=== PATIENT | male | born 1960 ===

== ENCOUNTER 2016-08-19 07:27 | Inpatient (IN) | payer MEDICAID, OTHER ==
[2016-08-19 07:34] VITALS: O2SAT 97
[2016-08-19 07:35] VITALS: BMI 29.1
--- NOTE | 2016-08-19 07:51 | ED PDOC ---
HPI: Psych/Substance Abuse Time Seen by Provider: 08/19/16 07:38 Chief Complaint (Nursing): Psychiatric Evaluation Chief Complaint (Provider): Psychiatric Evaluation History Per: Patient History/Exam Limitations: no limitations Onset/Duration Of Symptoms: Days Current Symptoms Are (Timing): Still Present Suicide/Self Injury Attempted (Context): None Modifying Factor(s): Alcohol Severity: Mild Involuntary Hold By: None Additional Complaint(s): Patient is a 56 year old male who presents to ED for psychiatric evaluation. Patient reports hearing voices since stopping his medication, also admits to drinking alcohol. Denies SI or HI. Past Medical History Reviewed: Historical Data, Nursing Documentation, Vital Signs Vital Signs: Last Vital Signs Temp 97.6 F 08/19/16 07:33 Pulse 93 H 08/19/16 07:33 Resp BP 132/74 08/19/16 07:33 Pulse Ox 97 08/19/16 07:33 - Medical History PMH: Anemia, Anxiety, Asthma, Bipolar Disorder, COPD, Depression, Gastritis ( secondary to ETOH), HTN, Hypercholesterolemia, Pancreatitis (secondary to ETOH) , Schizophrenia Denies: Alzheimer's Disease, Atrial Fibrillation, Bronchitis, Cardia Arrhythmia, CHF, Dementia, Diabetes, Emphysema, Hepatitis, HIV, Migraine, Mitral Valve Prolapse, Multiple Sclerosis, Parkinson's Disease, Peripheral Edema , Pneumonia, Pulmonary Embolism, Chronic Kidney Disease, Sexually Transmitted Disease, Sleep Apnea Comment Only: Seizures (related to ETOH withdrawal) - Surgical History Surgical History: No Surg Hx Denies: Pacemaker - Family History Family History: States: Unknown Family Hx - Social History Alcohol: > 2 Drinks/Day - Immunization History Hx Tetanus Toxoid Vaccination: Yes (As per patient, TDaP uptodate ( about 3 years ago)) Hx Influenza Vaccination: No Hx Pneumococcal Vaccination: No - Allergies Allergies/Adverse Reactions: Allergies Allergy/AdvReac Type Severity Reaction Status Date / Time No Known Allergies Allergy Verified 08/19/16 07:36 Review of Systems ROS Statement: Except As Marked, All Systems Reviewed And Found Negative Constitutional: Negative for: Weakness Eyes: Negative for: Vision Change Cardiovascular: Negative for: Chest Pain Respiratory: Negative for: Shortness of Breath Gastrointestinal: Negative for: Vomiting Neurological: Negative for: Weakness Psych: Negative for: Suicidal ideation Physical Exam - Reviewed Nursing Documentation Reviewed: Yes Vital Signs Reviewed: Yes - Physical Exam Appears: Positive for: Non-toxic ((+) AOB), No Acute Distress Skin: Positive for: Normal Color, Warm Eye Exam: Positive for: Normal appearance Neck: Positive for: Normal, Painless ROM Cardiovascular/Chest: Positive for: Regular Rate, Rhythm. Negative for: Murmur Respiratory: Positive for: Normal Breath Sounds. Negative for: Respiratory Distress Extremity: Positive for: Normal ROM Neurologic/Psych: Positive for: Alert, Oriented (with mild slurred speech) - Laboratory Results Result Diagrams: 08/19/16 09:30 08/19/16 09:30 - ECG O2 Sat by Pulse Oximetry: 97 (RA) Pulse Ox Interpretation: Normal Medical Decision Making Medical Decision Making: Time: 744 Initial impression: Psychiatric evaluation Initial plan: -- Alcohol serum -- Crisis evaluation labs reviewed, mild etoh intox. crisis eval performed on acceptable clinical sobriety and admit to 3 Was medically stable for psychiatric admission at time of eval. Scribe Attestation: Documented by Yecenia Kaplan acting as a scribe for Mitch Rivas DO MD Scribe Attestation: All medical record entries made by the Scribe were at my direction and personally dictated by me. I have reviewed the chart and agree that the record accurately reflects my personal performance of the history, physical exam, medical decision making, and the department course for this patient. I have also personally directed, reviewed, and agree with the discharge instructions and disposition. Disposition - Clinical Impression Clinical Impression: Alcohol intoxication, Bipolar 1 disorder, depressed - Patient ED Disposition Is Patient to be Admitted: Yes Counseled Patient/Family Regarding: Studies Performed, Diagnosis - Disposition Disposition Time: 10:00 Condition: STABLE - Pt Status Changed To: Hospital Disposition Of: Inpatient - Admit Certification Admit to Inpatient:: After my assessment, the patient will require hospitalization for at least two midnights. This is because of the severity of symptoms shown, intensity of services needed, and/or the medical risk in this patient being treated as an outpatient. - POA Present On Arrival: None
[2016-08-19 09:45] LABS: BASO # 0.1 K/uL (0.0-0.2); BASO % 1.7 % (0.0-2.0); EOS # 0.2 K/uL (0.0-0.7); EOS % 2.9 % (0.0-4.0); HEMATOCRIT 45.7 % (35.0-51.0); LYMPH # 2.4 K/uL (1.0-4.3); LYMPH % 44.4 % (20.0-40.0); MEAN CELL VOLUME 92.1 fl (80.0-94.0); MEAN CORPUSCULAR HEMOGLOBIN 30.8 pg (27.0-31.0); MEAN CORPUSCULAR HGB CONC 33.4 g/dL (33.0-37.0); MEAN PLATELET VOLUME 7.1 fl (7.2-11.7); MONO # 0.4 K/uL (0.0-0.8); MONO % 6.8 % (0.0-10.0); NEUT # 2.4 K/uL (1.8-7.0); NEUT % 44.2 % (50.0-75.0); NRBC % 0.6 % (0.0-0.0); RED CELL DISTRIBUTION WIDTH 16.1 % (11.5-14.5); WHITE BLOOD COUNT 5.4 K/uL (4.8-10.8)
[2016-08-19 09:49] LABS: ALCOHOL SERUM 188 mg/dl (0-10); BLOOD UREA NITROGEN 8 mg/dl (9-20); CALCIUM 8.8 mg/dL (8.4-10.2); CARBON DIOXIDE 21 mmol/L (22-30); CHLORIDE 106 mmol/L (98-107); GFR AFRICAN-AMERICAN > 60; GLUCOSE,RANDOM 106 mg/dL (75-110); POTASSIUM 3.8 MMOL/L (3.6-5.0); SODIUM 142 mmol/l (132-148)
--- NOTE | 2016-08-19 13:54 | RAD ---
HISTORY: ro infiltrate COMPARISON: 07/02/2016 FINDINGS: LUNGS: No active pulmonary disease. PLEURA: No significant pleural effusion identified, no pneumothorax apparent. CARDIOVASCULAR: Normal. OSSEOUS STRUCTURES: No significant abnormalities. VISUALIZED UPPER ABDOMEN: Normal. OTHER FINDINGS: None. IMPRESSION: No active disease.
[2016-08-19] MEDS ORDERED: DiphenhydrAMINE 50 mg/ml Inj IM PRN (14:37)
[2016-08-19] MEDS ORDERED: Magnesium Hydroxide Susp 30 ml UD PO PRN (14:37)
[2016-08-19] MEDS ORDERED: Alum-Mag Hydrox-Simethicone Susp (30 mL) PO PRN (14:37)
--- NOTE | 2016-08-19 14:56 | PCM.PSYCH ---
Initial Psychiatric Evaluation - Initial Psychiatric Evaluation Type of Admission: Voluntary Legal Status: Capacity Chief Complaint (in patient's own words): i feel like @$%# Patient's Reaction to Hospitalization: cooperative History of Present Illness and Precipitating Events: pt is well known to the treatment team. he is an alcoholic who lives at the [facility]. he has medical complications from his alcohol use- chronic diarrhea, pancreatitis as well as copd from his smoking. he has started to have mental health issues after the of his which include depression and auditory hallucinations. he does not sustain sobriety. has been drinking up to 4 pints of vodka daily. he is tremulous now. he reports he has been seeing mary francis in the clinic for meds, since he is not allowed at [facility] [employer] regular outpt clinic because of his non-adherence. pt is reporting that he is now having suicidal thoughts and having auditory hallucinations of his 's voice. he has not taken meds for several days. he is feeling safe in the hospital. he denies wanting to harm himself currently. Current Medications: Active Medications Generic Name Dose Route Start Last Admin Trade Name Freq PRN Reason Stop Dose Admin Acetaminophen 650 mg 08/19/16 14:37 Tylenol 325mg Tab PO Q4 PRN Pain, Mild (1-3) Al Hydrox/Mg Hydrox/Simethicone 30 ml 08/19/16 14:37 Maalox Plus 30 Ml PO Q4 PRN Dyspepsia Diphenhydramine HCl 50 mg 08/19/16 14:37 Benadryl PO Q6 PRN Extrapyramidal Symptoms Diphenhydramine HCl 50 mg 08/19/16 14:37 Benadryl IM Q6 PRN Extrapyramidal S/S Unable PO Folic Acid 1 mg 08/20/16 09:00 Folic Acid PO DAILY CHARLINE Gabapentin 400 mg 08/19/16 22:00 Neurontin PO HS CHARLINE Haloperidol 5 mg 08/19/16 14:37 Haldol PO Q4 PRN Agitation Haloperidol Lactate 5 mg 08/19/16 14:37 Haldol IM Q4 PRN Agitation, Unable to Take PO Lorazepam 1 mg 08/19/16 17:00 Ativan PO BIDHS CHARLINE Lorazepam 2 mg 08/19/16 14:37 Ativan PO Q4 PRN Anxiety/Agitation Lorazepam 2 mg 08/19/16 14:37 Ativan IM Q4 PRN Anxiety/Agitation,Unable PO Magnesium Hydroxide 30 ml 08/19/16 14:37 Milk Of Magnesia PO HS PRN Constipation Quetiapine Fumarate 50 mg 08/19/16 22:00 Seroquel PO HS CHARLINE Sertraline HCl 100 mg 08/20/16 09:00 Zoloft PO DAILY CHARLINE Thiamine HCl 100 mg 08/20/16 09:00 Vitamin B1 Tab PO DAILY CHARLINE Tramadol HCl 100 mg 08/19/16 14:37 Ultram PO Q6 PRN Pain, severe (8-10) Tramadol HCl 50 mg 08/19/16 14:37 Ultram PO Q6 PRN Pain, moderate (4-7) Past Psychiatric History - Past Psychiatric History Previous Treatment History: Inpatient Prior Professional Help: as per hpi History of Abuse: denies History of ETOH/Drug Use: smokes 1 pack a day of cigarettes, chronic heavy alcohol use. does not accept rehab referrals. History of Family Illness: denies Pertinent Medical Hx (Current Medical&Sleep Prob, Allergies): Allergies Allergy/AdvReac Type Severity Reaction Status Date / Time No Known Allergies Allergy Verified 08/19/16 07:36 Review of Systems - Psychiatric Psychiatric: As Per HPI Mental Status Examination - Personal Presentation Personal Presentation: Looks stated age - Affect Affect: Constricted, Depressed - Motor Activity Motor Activity: Calm - Reliability in Providing Information Reliability in Providing Information: Good - Speech Speech: Organized - Mood Mood: Depressed - Formal Thought Process Formal Thought Process: Hallucinations (hears 's voice at night) - Hallucinations/Delusions Hallucinations: Auditory - Obsessions/Compulsions Obsessions: No Compulsions: No - Cognitive Functions Orientation: Person, Place, Situation, Time Sensorium: Alert Attention/Concentration: Attentive Abstract Thinking: [place] Estimate of Intelligence: Average Judgement: Intact, as evidence by: Insight regarding need for hospitalization Memory: Recent intact, as evidence by: Ability to recall events of the day, Remote intact, as evidenced by: Abilit to recall sig. life events - Risk Risk: Suicidal (denies plan or intent now), Seizure, Withdrawal, Diminished functioning - Strength & Assets Inventory Strength & Assets Inventory: Employment history, Life experience - Limitations Limitations: Other (cannot read, does not follow up consitently. medical problems ) DSM 5 DX - DSM 5 DSM 5 Diagnosis: alcohol dependence in withdrawal with medical complications major depression recurrent severe with psychosis - Recommended/Plan of Treatment Treatment Recommendations and Plan of Treatment: admit to [facility] for safety and observation gather collateral information provide supportive therapy adjust medications- restart previous meds. ativan for etoh withdrawal. family medicine consult to manage medical issues disposition planning- refer to inpt rehab. Projected ELOS: 7-10 days Prognosis: guarded Discharge Plan and Discharge Criteria: strongly encourage inpt rehab - Smoking Cessation Smoking Cessation Initiated: Yes
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
[2016-08-19 15:23] LABS: CHOLESTEROL 288 mg/dL (0-199)
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
[2016-08-19] MEDS ORDERED: Albuterol HFA 90 mcg/actuation (8 g) INH PRN (15:52)
--- NOTE | 2016-08-20 11:32 | PCM.PYCHPN ---
Psychiatric Progress Note - Psychiatric Progress Note Patient seen today, length of contact: discussed with team Patient Chief Complaint: i feel ok today Problems Identified/Issues Discussed: states the voices are reduced. he reports feeling less tremulous today. his sleep was improved. he is denying any diarrhea. feels more hopeful. Medication Change: No Medical Record Reviewed: Yes Mental Status Examination - Cognitive Function Orientation: Person, Place, Situation, Time Memory: Intact Attention: WNL Concentration: WNL Association: WNL Fund of Knowledge: [facility] Decription of patient's judgement and insights: fair - Mood Mood: Depressed - Affect Affect: Constricted, Depressed - Formal Thought Process Formal Thought Process: No Impairment Psychotic Thoughts and Behaviors: denies a/v hallucinations - Suicidal Ideation Suicidal Ideation: No - Homicidal Ideation Homicidal Ideation: No Goal/Treatment Plan - Goal/Treatment Plan Need for Continued Stay: Remain at risks for inpatient hospitalization, Severe functional impairment Progress Toward Problem(s) and Goals/Treatment Plan: alcohol dependence major depression recurrent with psychosis continue current treatment start to taper ativan tomorrow disposition planning- try to encourage pt to go to inpt rehab Estimated Date of D/C: 08/24/16
--- NOTE | 2016-08-21 12:02 | PCM.PYCHPN ---
Psychiatric Progress Note - Psychiatric Progress Note Patient seen today, length of contact: discussed with team Patient Chief Complaint: i feel pretty good Problems Identified/Issues Discussed: states he is not hearing voices. less tremulous. pt is still feeling depressed. no c/o medication side effects. Medication Change: No Medical Record Reviewed: Yes Mental Status Examination - Cognitive Function Orientation: Person, Place, Situation, Time Memory: Intact Attention: WNL Concentration: WNL Association: WNL Fund of Knowledge: [facility] Decription of patient's judgement and insights: fair - Mood Mood: Depressed - Affect Affect: Constricted, Depressed - Formal Thought Process Formal Thought Process: No Impairment - Suicidal Ideation Suicidal Ideation: No - Homicidal Ideation Homicidal Ideation: No Goal/Treatment Plan - Goal/Treatment Plan Need for Continued Stay: Remain at risks for inpatient hospitalization, Severe functional impairment Progress Toward Problem(s) and Goals/Treatment Plan: alcohol dependence major depression recurrent with psychosis continue current treatment start to taper ativan monday disposition planning- try to encourage pt to go to inpt rehab Estimated Date of D/C: 08/24/16
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
--- NOTE | 2016-08-22 10:17 | CARD ---
APPROVED REPORT EKG Measurement Heart [id number] CT [id number] <Conclusion> Normal sinus rhythm Normal ECG
--- NOTE | 2016-08-22 11:43 | PCM.PYCHPN ---
Psychiatric Progress Note - Psychiatric Progress Note Patient seen today, length of contact: in treatment team Patient Chief Complaint: i'm doing okay Problems Identified/Issues Discussed: states he does not want to go to rehab, mood is improved. pt states he is doing better despite his frequent hospitalizations. Medication Change: No Medical Record Reviewed: Yes Mental Status Examination - Cognitive Function Orientation: Person, Place, Situation, Time Memory: Intact Attention: WNL Concentration: WNL Association: WNL Fund of Knowledge: [facility] Decription of patient's judgement and insights: superficial - Mood Mood: Depressed - Affect Affect: Constricted, Depressed - Speech Speech: Appropriate - Formal Thought Process Formal Thought Process: No Impairment - Suicidal Ideation Suicidal Ideation: No - Homicidal Ideation Homicidal Ideation: No Goal/Treatment Plan - Goal/Treatment Plan Need for Continued Stay: Remain at risks for inpatient hospitalization, Severe functional impairment Progress Toward Problem(s) and Goals/Treatment Plan: alcohol dependence major depression recurrent with psychosis continue current treatment have started to taper ativan disposition planning- will continue to encourage pt to go to inpt rehab Estimated Date of D/C: 08/24/16 - Smoking Cessation Smoking Cessation Initiated: Yes
--- NOTE | 2016-08-23 10:15 | PCM.PYCHPN ---
Psychiatric Progress Note - Psychiatric Progress Note Patient seen today, length of contact: discussed with team Patient Chief Complaint: my back hurts Problems Identified/Issues Discussed: pt concerned with his back pain- he states the pain is right over his lower spine. he has trouble tolerating groups because of the pain and struggles to walk around the unit because of discomfort. he is still tremulous. he does not want inpt substance use treatment. he denies any a/v hallucinations. Medication Change: No Medical Record Reviewed: Yes Mental Status Examination - Cognitive Function Orientation: Person, Place, Situation, Time Memory: Intact Attention: WNL Concentration: WNL Association: [facility] Fund of Knowledge: [facility] Decription of patient's judgement and insights: fair - Mood Mood: Depressed - Affect Affect: Constricted, Depressed - Speech Speech: Appropriate - Formal Thought Process Formal Thought Process: No Impairment Psychotic Thoughts and Behaviors: denies a/v hallucinations - Suicidal Ideation Suicidal Ideation: No - Homicidal Ideation Homicidal Ideation: No Goal/Treatment Plan - Goal/Treatment Plan Need for Continued Stay: Remain at risks for inpatient hospitalization, Severe functional impairment Progress Toward Problem(s) and Goals/Treatment Plan: alcohol dependence major depression recurrent with psychosis continue current treatment have started to taper ativan- will hold at 1mg bid today rn to [facility] medicine regarding pt's back pain- t/c mri? disposition planning- will continue to encourage pt to go to inpt rehab Estimated Date of D/C: 08/24/16
--- NOTE | 2016-08-23 11:28 | CP.PCM.PN ---
Subjective - Date & Time of Evaluation Date of Evaluation: 08/23/16 Time of Evaluation: 11:26 - Subjective Subjective: Patient evaluated with complaints of lower back pain. Para-spinal lumbar region on the left side. No trauma, urinary habits changes, numbness/ tingling or weakness. Objective - Vital Signs/Intake and Output Vital Signs (last 24 hours): Temp Pulse Resp BP Pulse Ox 97.5 F L 110 H 20 141/84 97 08/22/16 10:00 08/22/16 10:00 08/21/16 16:57 08/22/16 10:00 08/19/16 14:09 - Medications Medications: Current Medications Acetaminophen (Tylenol 325mg Tab) 650 mg PO Q4 PRN PRN Reason: Pain, Mild (1-3) Al Hydrox/Mg Hydrox/Simethicone (Maalox Plus 30 Ml) 30 ml PO Q4 PRN PRN Reason: Dyspepsia Albuterol (Ventolin Hfa 90 Mcg/Actuation (8 G)) 1 puff INH RQ6 PRN PRN Reason: Shortness of Breath Last Admin: 08/21/16 07:03 Dose: 1 inhaler Amlodipine Besylate (Norvasc) 5 mg PO DAILY [facility] Last Admin: 08/22/16 09:25 Dose: 5 mg Diphenhydramine HCl (Benadryl) 50 mg PO Q6 PRN PRN Reason: Extrapyramidal Symptoms Diphenhydramine HCl (Benadryl) 50 mg IM Q6 PRN PRN Reason: Extrapyramidal S/S Unable PO Folic Acid (Folic Acid) 1 mg PO DAILY [facility] Last Admin: 08/23/16 08:38 Dose: 1 mg Gabapentin (Neurontin) 400 mg PO HS [facility] Last Admin: 08/22/16 21:16 Dose: 400 mg Haloperidol (Haldol) 5 mg PO Q4 PRN PRN Reason: Agitation Haloperidol Lactate (Haldol) 5 mg IM Q4 PRN PRN Reason: Agitation, Unable to Take PO Lorazepam (Ativan) 2 mg PO Q4 PRN PRN Reason: Anxiety/Agitation Last Admin: 08/22/16 11:58 Dose: 2 mg Lorazepam (Ativan) 2 mg IM Q4 PRN PRN Reason: Anxiety/Agitation,Unable PO Lorazepam (Ativan) 1 mg PO BID [facility] Last Admin: 08/23/16 08:38 Dose: 1 mg Magnesium Hydroxide (Milk Of Magnesia) 30 ml PO HS PRN PRN Reason: Constipation Nicotine (Nicoderm Cq) 1 patch TD DAILY [facility] Last Admin: 08/23/16 08:39 Dose: 1 patch Quetiapine Fumarate (Seroquel) 50 mg PO HS [facility] Last Admin: 08/22/16 21:16 Dose: 50 mg Sertraline HCl (Zoloft) 100 mg PO DAILY [facility] Last Admin: 08/23/16 08:38 Dose: 100 mg Thiamine HCl (Vitamin B1 Tab) 100 mg PO DAILY [facility] Last Admin: 08/23/16 08:38 Dose: 100 mg Tramadol HCl (Ultram) 100 mg PO Q6 PRN PRN Reason: Pain, severe (8-10) Last Admin: 08/22/16 20:48 Dose: 100 mg Tramadol HCl (Ultram) 50 mg PO Q6 PRN PRN Reason: Pain, moderate (4-7) Last Admin: 08/22/16 06:36 Dose: 50 mg - Head Exam Head Exam: ATRAUMATIC, NORMOCEPHALIC - Cardiovascular Exam Cardiovascular Exam: +S1, +S2 - GI/Abdominal Exam GI & Abdominal Exam: Soft. absent: Distended, Tenderness - Extremities Exam Extremities Exam: Full ROM Additional comments: 5/5 MSK strength, +2DTRs, Motorsensorium full - Back Exam Additional comments: ROM full- extension and flexion Mild paraspinal lumbarsacral tenderness with spasm - Neurological Exam Neurological Exam: Alert Assessment and Plan - Assessment and Plan (Free Text) Plan: 1. Lower Back Pain Likely lumbago from paraspinal MSK spasm - Tramadol continued: Dosing may be decreased to 50mg PO [id number] - Avoid Bed rest - PO hydration encouraged - Strengthening and stretching exercises reviewed - Could benefit from PT
--- NOTE | 2016-08-24 09:56 | PCM.PYCHPN ---
Psychiatric Progress Note - Psychiatric Progress Note Patient seen today, length of contact: discussed with team Patient Chief Complaint: i am in pain Problems Identified/Issues Discussed: pt continues to complain of back pain 8-9 out of 10- located over lower spine and occasional under left lower ribs. pain prevents him from sleeping. he feels less tremulous. he denies a/v hallucinations. Medical Problems: back pain Medication Change: No Medical Record Reviewed: Yes Mental Status Examination - Cognitive Function Orientation: Person, Place, Situation, Time Memory: Intact Attention: WNL Concentration: WNL Association: [facility] Fund of Knowledge: [facility] Decription of patient's judgement and insights: fair - Mood Mood: Depressed - Affect Affect: Constricted, Depressed - Speech Speech: Appropriate - Formal Thought Process Formal Thought Process: No Impairment Psychotic Thoughts and Behaviors: denies a/v hallucinations - Suicidal Ideation Suicidal Ideation: No - Homicidal Ideation Homicidal Ideation: No Goal/Treatment Plan - Goal/Treatment Plan Need for Continued Stay: Remain at risks for inpatient hospitalization, Severe functional impairment Progress Toward Problem(s) and Goals/Treatment Plan: alcohol dependence major depression recurrent with psychosis continue current treatment lower ativan today will consult pt at recommendation of pt will consult pain management Estimated Date of D/C: 08/24/16 - Smoking Cessation Smoking Cessation Initiated: Yes
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
[2016-08-24] MEDS: Lidocaine 5% Patch TD SCH (16:42)
[2016-08-25] MEDS: Lidocaine 5% Patch TD SCH (09:44)
--- NOTE | 2016-08-25 09:49 | PCM.PYCHPN ---
Psychiatric Progress Note - Psychiatric Progress Note Patient seen today, length of contact: discussed with team Patient Chief Complaint: i feel a little better Problems Identified/Issues Discussed: pt with some relief of back pain. went to mri today and results pending. no withdrawal symptoms. psychotic symptoms improved. pt makes efforts to attend groups. Medical Problems: back pain Diagnostic Results: mri results pending Medication Change: No Medical Record Reviewed: Yes Consults ordered or reviewed: appreciate pain management consult. pt has been consulted Mental Status Examination - Cognitive Function Orientation: Person, Place, Situation, Time Memory: Intact Attention: WNL Concentration: WNL Association: WNL Fund of Knowledge: [facility] Decription of patient's judgement and insights: fair - Mood Mood: Depressed - Affect Affect: Constricted, Depressed - Speech Speech: Appropriate - Formal Thought Process Formal Thought Process: No Impairment - Suicidal Ideation Suicidal Ideation: No - Homicidal Ideation Homicidal Ideation: No Goal/Treatment Plan - Goal/Treatment Plan Need for Continued Stay: Remain at risks for inpatient hospitalization, Severe functional impairment Progress Toward Problem(s) and Goals/Treatment Plan: alcohol dependence major depression recurrent with psychosis [facility] appreciate help of pt and pain management mri results pending Estimated Date of D/C: 08/24/16
--- NOTE | 2016-08-25 13:29 | MRI ---
PROCEDURE: MR LUMBAR SPINE WITHOUT CONTRAST HISTORY: back pain COMPARISON: Plain radiographs from 03/28/2016 TECHNIQUE: Multiecho multiplanar sequences were performed through the lumbar spine without the use of intravenous contrast. FINDINGS: There is normal alignment of the lumbar vertebral bodies. Lumbar lordosis is maintained. Vertebral bodies are normal in height. There is no acute fracture, spondylolysis or spondylolisthesis. There are degenerative endplate marrow changes at L5-S1 and to a lesser extent at L4-5, otherwise bone marrow signal is within normal limits. T12-L1: No disc herniation, spinal canal stenosis or neural foraminal narrowing. L1-2: No disc herniation, spinal canal stenosis or neural foraminal narrowing. L2-3: No disc herniation, spinal canal stenosis or neural foraminal narrowing. L3-4: Mild posterior disc bulge, mild ligamentum flavum infolding and mild bilateral facet arthropathy without neural foraminal or spinal canal stenosis. L4-5: Posterior disc bulge and mild bilateral facet arthropathy without neural foraminal or spinal canal stenosis. L5-S1: Diffuse posterior disc bulge, mild ligamentum flavum infolding and mild bilateral facet arthropathy with resultant moderate bilateral neural foraminal stenosis. No spinal canal stenosis. OTHER FINDINGS: None. IMPRESSION: 1. No acute fracture, spondylolysis or spondylolisthesis. 2. Mild degenerative disc disease in the lower lumbar spine, worse at L5-S1 with a diffuse disc bulge and moderate bilateral neural foraminal stenosis. No spinal canal stenosis.
[2016-08-26] MEDS: Lidocaine 5% Patch TD SCH (09:57)
--- NOTE | 2016-08-26 12:49 | PCM.PYCHPN ---
Psychiatric Progress Note - Psychiatric Progress Note Patient seen today, length of contact: discussed with team Patient Chief Complaint: i am depressed Problems Identified/Issues Discussed: pt's mri fairly unremarkable. worked with PT today. he is c/o feeling depressed. still with back/side pain. denies medication side effects, Medical Problems: back pain Diagnostic Results: mri results reviewed Medication Change: Yes (increase zoloft) Medical Record Reviewed: Yes Mental Status Examination - Cognitive Function Orientation: Person, Place, Situation, Time Memory: Intact Attention: WNL Concentration: WNL Association: WNL Fund of Knowledge: [facility] Decription of patient's judgement and insights: fair - Mood Mood: Depressed - Affect Affect: Constricted, Depressed - Speech Speech: Appropriate - Formal Thought Process Formal Thought Process: No Impairment - Suicidal Ideation Suicidal Ideation: No - Homicidal Ideation Homicidal Ideation: No Goal/Treatment Plan - Goal/Treatment Plan Need for Continued Stay: Remain at risks for inpatient hospitalization, Severe functional impairment Progress Toward Problem(s) and Goals/Treatment Plan: alcohol dependence major depression recurrent with psychosis continue current treatment with increase in zoloft ativan has been discontinued, continue prn for weekend appreciate help of pt and pain management Estimated Date of D/C: 08/29/16 - Smoking Cessation Smoking Cessation Initiated: Yes
--- NOTE | 2016-08-26 16:38 | CP.PCM.PN ---
Subjective - Date & Time of Evaluation Date of Evaluation: 08/26/16 Time of Evaluation: 08:00 - Subjective Subjective: Pt was resting in bed. States he is feeling well. Denies any auditory or visual hallucinations. Patients back pain is still there but pain is controled with medication. Denies any weakness in lower extremity or difficulty with bowl and bladder. Objective - Vital Signs/Intake and Output Vital Signs (last 24 hours): Temp Pulse Resp BP Pulse Ox 96.8 F L 87 18 125/76 97 08/26/16 09:00 08/26/16 10:01 08/26/16 09:00 08/26/16 10:01 08/23/16 16:49 - Medications Medications: Current Medications Acetaminophen (Tylenol 325mg Tab) 650 mg PO Q4 PRN PRN Reason: Pain, Mild (1-3) Al Hydrox/Mg Hydrox/Simethicone (Maalox Plus 30 Ml) 30 ml PO Q4 PRN PRN Reason: Dyspepsia Albuterol (Ventolin Hfa 90 Mcg/Actuation (8 G)) 1 puff INH RQ6 PRN PRN Reason: Shortness of Breath Last Admin: 08/21/16 07:03 Dose: 1 inhaler Amlodipine Besylate (Norvasc) 5 mg PO DAILY [facility] Last Admin: 08/26/16 10:01 Dose: 5 mg Diphenhydramine HCl (Benadryl) 50 mg PO Q6 PRN PRN Reason: Extrapyramidal Symptoms Last Admin: 08/26/16 16:05 Dose: 50 mg Diphenhydramine HCl (Benadryl) 50 mg IM Q6 PRN PRN Reason: Extrapyramidal S/S Unable PO Folic Acid (Folic Acid) 1 mg PO DAILY [facility] Last Admin: 08/26/16 09:57 Dose: 1 mg Gabapentin (Neurontin) 400 mg PO HS [facility] Last Admin: 08/25/16 21:39 Dose: 400 mg Haloperidol (Haldol) 5 mg PO Q4 PRN PRN Reason: Agitation Haloperidol Lactate (Haldol) 5 mg IM Q4 PRN PRN Reason: Agitation, Unable to Take PO Lidocaine (Lidoderm) 1 ea TD DAILY [facility] Last Admin: 08/26/16 09:57 Dose: 1 ea Lorazepam (Ativan) 2 mg PO Q4 PRN PRN Reason: Anxiety/Agitation Last Admin: 08/22/16 11:58 Dose: 2 mg Lorazepam (Ativan) 2 mg IM Q4 PRN PRN Reason: Anxiety/Agitation,Unable PO Magnesium Hydroxide (Milk Of Magnesia) 30 ml PO HS PRN PRN Reason: Constipation Nicotine (Nicoderm Cq) 1 patch TD DAILY [facility] Last Admin: 08/26/16 10:01 Dose: 1 patch Pregabalin (Lyrica) 50 mg PO BID [facility] Last Admin: 08/26/16 16:05 Dose: 50 mg Quetiapine Fumarate (Seroquel) 50 mg PO HS [facility] Last Admin: 08/25/16 21:39 Dose: 50 mg Sertraline HCl (Zoloft) 100 mg PO DAILY [facility] Last Admin: 08/26/16 10:02 Dose: 100 mg Sertraline HCl (Zoloft) 25 mg PO DAILY [facility] Thiamine HCl (Vitamin B1 Tab) 100 mg PO DAILY [facility] Last Admin: 08/26/16 10:02 Dose: 100 mg Tramadol HCl (Ultram) 100 mg PO Q6 PRN PRN Reason: Pain, severe (8-10) Last Admin: 08/26/16 16:07 Dose: 100 mg Tramadol HCl (Ultram) 50 mg PO Q6 PRN PRN Reason: Pain, moderate (4-7) Last Admin: 08/24/16 21:18 Dose: 50 mg - Constitutional Appears: No Acute Distress - Head Exam Head Exam: ATRAUMATIC, NORMAL INSPECTION, NORMOCEPHALIC - Eye Exam Eye Exam: Normal appearance - Respiratory Exam Respiratory Exam: Clear to Ausculation Bilateral, NORMAL BREATHING PATTERN. absent: Rales, Wheezes - Cardiovascular Exam Cardiovascular Exam: REGULAR RHYTHM, +S1, +S2 - GI/Abdominal Exam GI & Abdominal Exam: Soft, Normal Bowel Sounds. absent: Tenderness - Neurological Exam Neurological Exam: Alert, Awake, Normal Gait, Oriented x3 Assessment and Plan - Assessment and Plan (Free Text) Assessment: Assessment: 56 y/o male with history of alcohol abuse, HTN, depression being admitted for auditory hallucinations and alcohol withdrawl 1) Hx OF COPD vs Asthma - albuterol inh Q6hr PRN if SOB. 2) Chronic Back pain - PT -Lidoderm patch - mobic - Lyrica - Gabapentin PO HS - MRI- Diffuse disc bulge and moderate b/l neural foraminal stenosis. No spinal stenosis - Tramadol PRN 2.Alcohol Abuse - [facility] protocol - continue Thiamine 100mg daily - Adivan PO PRN for agitation -thiamine, folic acid, b12 daily 3) Hyperlipidemia - Monitor - Holding statin b/c of alcoholism 3) Hypertensive - Norvasc 5mg 4. Psychiatry disorders -Home medications resumed 5) Chronic Smoker - Nicotine patch 6.) DVT prophylaxis Early ambulation
[2016-08-26] MEDS ORDERED: Benzocaine/Menthol (Cepacol) Lozenge PO PRN (23:43)
[2016-08-27] MEDS: Lidocaine 5% Patch TD SCH (09:00)
--- NOTE | 2016-08-27 20:37 | PCM.PYCHDC ---
Mental Status Examination - Mental Status Examination Orientation: Person Memory: Impaired Mood: Other Affect: Constricted Speech: Soft Attention: Poor Concentration: Poor Association: Loose Fund of Knowledge: Poor Formal Thought Process: Paranoia (impaired) Discharge Summary - Discharge Note Consultations:: List each consultation separately and include: 1. Reason for request. 2. Findings. 3. Follow-up Summary of Hospital Course include:: 1. Description of specific treatment plan utilized for patients during their course of treatmen. 2. Summarize the time- course for resolution of acute symptoms and/or regressed behaviors. 3. Describe issues identified and worked on during hospitalization. 4. Describe medication utilized. 5. Describe medical problems identified and treated. 6. Reassessment of suicide risk - Final Diagnosis (DSM 5) Condition upon Discharge: STABLE Disposition: HOME/ ROUTINE
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
[2016-08-28] MEDS: Lidocaine 5% Patch TD SCH (08:49)
--- NOTE | 2016-08-29 00:55 | PCM.PYCHPN ---
Psychiatric Progress Note - Psychiatric Progress Note Patient seen today, length of contact: [id number] NOTE:chart reviewed, case discussed with team Patient Chief Complaint: feeling less depressed not s/s withdrawal,reportedly adherent with medications, seen participating in activities with peers, although somewhat quiet Problems Identified/Issues Discussed: mood substance dependence etoh Medical Problems: per chart Diagnostic Results: per psychiatry per medicine per nursing per social welfare clerk per recreational therapy DSM 5 Symptoms Update: alteration mood alteration in coping subtance use: etoh active non adherence with medical treatment Medication Change: Yes (pravastatin 10mg po am) Medical Record Reviewed: Yes Mental Status Examination - Cognitive Function Orientation: Person, Place, Situation, Time Memory: Intact Attention: WNL Concentration: WNL Association: WNL Fund of Knowledge: WN Decription of patient's judgement and insights: impaired - Mood Mood: Depressed - Affect Affect: Constricted, Depressed - Speech Speech: Appropriate - Formal Thought Process Formal Thought Process: No Impairment - Suicidal Ideation Suicidal Ideation: No - Homicidal Ideation Homicidal Ideation: No Goal/Treatment Plan - Goal/Treatment Plan Need for Continued Stay: Remain at risks for inpatient hospitalization, Severe functional impairment Progress Toward Problem(s) and Goals/Treatment Plan: inpt mieliu adjust meds per status-increase zoloft to 50mg po day, start pravastatin 10mg po day(elevated lipids-lft wnl) vital signs/clinical observations per protocol and per clinical status discharge planning in progress Estimated Date of D/C: 08/29/16 - Smoking Cessation Smoking Cessation Initiated: No Reason for not providing: defers
[2016-08-29] MEDS: Lidocaine 5% Patch TD SCH (09:05)
--- NOTE | 2016-08-29 13:49 | PCM.PYCHPN ---
Psychiatric Progress Note - Psychiatric Progress Note Patient seen today, length of contact: discussed with team Patient Chief Complaint: i didn't sleep Problems Identified/Issues Discussed: pt c./o poor sleep. he is still depressed. no more a/v hallucinations. no suicidal thoughts today. denies medication side effects. back pain improved. Medical Problems: back pain Diagnostic Results: mri results reviewed Medication Change: Yes (doxepin) Medical Record Reviewed: Yes Mental Status Examination - Cognitive Function Orientation: Person, Place, Situation, Time Memory: Intact Attention: WNL Concentration: WNL Association: WNL Fund of Knowledge: [facility] Decription of patient's judgement and insights: fair - Mood Mood: Depressed - Affect Affect: Constricted, Depressed - Speech Speech: Appropriate - Formal Thought Process Formal Thought Process: No Impairment - Suicidal Ideation Suicidal Ideation: No - Homicidal Ideation Homicidal Ideation: No Goal/Treatment Plan - Goal/Treatment Plan Need for Continued Stay: Remain at risks for inpatient hospitalization, Severe functional impairment Progress Toward Problem(s) and Goals/Treatment Plan: alcohol dependence major depression recurrent with psychosis continue current treatment with increase in zoloft doxepin for sleep dc home tomorrow Estimated Date of D/C: 08/30/16
[2016-08-30 09:02] VITALS: BP 137/86
[2016-08-30 09:21] VITALS: PULSE 81; RESP 18; TEMP 97.2
--- NOTE | 2016-08-30 10:16 | PCM.PYCHDC ---
Mental Status Examination - Mental Status Examination Orientation: Person, Place, Situation, Time Memory: Intact Mood: Neutral Affect: Broad Speech: Appropriate Attention: WNL Concentration: WNL Association: WNL Fund of Knowledge: WNL Formal Thought Process: No Impairment Description of patient's judgement and insight: fair Psychotic Thoughts and Behaviors: denies a/v hallucinations Suicidal Ideation: No Current Homicidal Ideation?: No Plan: pt denies any suicidal or homicidal thoughts Discharge Summary - Discharge Note Reason for Hospitalization: alcohol use, depression Psychiatric History (includes Medical, Family, Personal Hx): history of alcohol dependence, depression Laboratory Data: mri was reviewed Consultations:: List each consultation separately and include: 1. Reason for request. 2. Findings. 3. Follow-up Consultations: appreciate pain management consult and PT consult Summary of Hospital Course include:: 1. Description of specific treatment plan utilized for patients during their course of treatmen. 2. Summarize the time- course for resolution of acute symptoms and/or regressed behaviors. 3. Describe issues identified and worked on during hospitalization. 4. Describe medication utilized. 5. Describe medical problems identified and treated. 6. Reassessment of suicide risk Summary of Hospital Course: pt is well known to the treatment team. he is an alcoholic who lives at the [facility]. he has medical complications from his alcohol use- chronic diarrhea, pancreatitis as well as copd from his smoking. he has started to have mental health issues after the of his which include depression and auditory hallucinations. he does not sustain sobriety. has been drinking up to 4 pints of vodka daily. he is tremulous now. he reports he has been seeing mary francis in the clinic for meds, since he is not allowed at [facility] regular outpt clinic because of his non-adherence. pt is reporting that he is now having suicidal thoughts and having auditory hallucinations of his 's voice. he has not taken meds for several days. he is feeling safe in the hospital. he denies wanting to harm himself currently. hospital course pt was admitted to [facility] and oriented to the unit. pt was placed on routine safety protocols. pt was started on an ativan taper. he was started back on zoloft and the dose was increased up to 150mg daily. he was restarted on seroquel at night to target his sleep. he c/o back pain that was not improving. he was seen by physical therapy and pain management. lyrica and a lidocaine patch were added to his medications with good effect. he started to attend groups and participate in treatment. his mood/affect improved. he was encouraged to receive a referral to in substance abuse treatment, but refused this. he was goal directed, future oriented and denying any suicidal or homicidal thoughts at the time of discharge. - Final Diagnosis (DSM 5) Condition upon Discharge: STABLE DSM 5: alcohol dependence major depression recurrent Disposition: HOME/ ROUTINE Follow-up Treatment Plan: take medication as prescribed do not use alcohol, tobacco or other illicit substances call 911 if any suicidal or homicidal thoughts attend aa meetings daily follow up with your primary care doctor for your medical issues Prescriptions/Medication Reconciliation: Folic Acid 1 mg PO DAILY #30 tab Lidocaine 5% [Lidoderm] 1 ea TD DAILY 30 Days Pregabalin [Lyrica] 50 mg PO BID #60 cap Gabapentin [Neurontin] 400 mg PO HS #30 cap Nicotine 21 mg/24 hr [Nicoderm Cq] 1 patch TD DAILY #30 patch amLODIPine [Norvasc] 5 mg PO DAILY #30 tab Pravastatin Sodium [Pravachol] 10 mg PO DAILY #30 tab QUEtiapine [SEROquel] 50 mg PO HS #30 tab Doxepin [Sinequan] 10 mg PO HS #30 cap traMADol [Ultram] 100 mg PO Q6 PRN #30 tab PRN Reason: Pain, Severe (8-10) Albuterol HFA [Ventolin HFA 90 mcg/actuation (8 g)] 1 puff INH RQ6 PRN 30 Days PRN Reason: Shortness Of Breath Thiamine [Vitamin B1 Tab] 100 mg PO DAILY #30 tab Sertraline [Zoloft] 100 mg PO DAILY #30 tab Sertraline [Zoloft] 50 mg PO DAILY #30 tab - Smoking Cessation Smoking Cessation Medication prescribed: Yes - Antipsychotic Medications Pt discharged on 2 or more routine antipsychotic medications: No
== END 2016-08-30 10:30 | disposition home or self-care (01) | DRG 430 ==
LOC: H.ER 07:27 → H.ERHOLD 12:14 → H.PSYCH 14:32
PROVIDERS: ADMIT Psychiatry & Neurology Psychiatry; ATTEND Psychiatry & Neurology Psychiatry
PROC: GZ51ZZZ Individual Psychotherapy, Behavioral (ICD-10-PCS; 2016-08-20)
PROC: GZHZZZZ Group Psychotherapy (ICD-10-PCS; principal; 2016-08-22)
DX: F33.3 Major depressive disorder, recurrent, severe with psychotic symptoms (principal); I10 Essential (primary) hypertension; F10.239 Alcohol dependence with withdrawal, unspecified; J44.9 Chronic obstructive pulmonary disease, unspecified; F31.9 Bipolar disorder, unspecified; F17.200 Nicotine dependence, unspecified, uncomplicated; J45.909 Unspecified asthma, uncomplicated; E78.5 Hyperlipidemia, unspecified; F41.9 Anxiety disorder, unspecified; G89.29 Other chronic pain; M54.9 Dorsalgia, unspecified

== ENCOUNTER 2016-09-03 16:33 | Observation (INO) | payer MEDICAID, OTHER ==
[2016-09-03 16:35] VITALS: BMI 29.1
--- NOTE | 2016-09-03 17:10 | ED PDOC ---
HPI: Psych/Substance Abuse Time Seen by Provider: 09/03/16 16:41 Chief Complaint (Nursing): Alcohol Ingestion Chief Complaint (Provider): Alcohol Ingestion History Per: Patient History/Exam Limitations: intoxication Modifying Factor(s): Alcohol Additional Complaint(s): 16:41 Ryley Torres is a 56 year old patient with a history of mental illness that was brought to the ED via EMS and [place] [employer] after [place] [employer] was alerted of his "disturbing behavior" in his apartment. Patient states that he is unsure if he is compliant with his medication, and reports that he "drank four pints of vodka" today. Upon arrival to the ED he was aggressive, but became calm and cooperative once [place] [employer] left. Patient admitted to suicidal ideations with plan to [place] [employer], but did not admit to midlevel provider. Of Note: Patient was admitted to the hospital on August 19 and was recently discharged on August 30. PMD: None Past Medical History Reviewed: Historical Data, Nursing Documentation, Vital Signs Vital Signs: Last Vital Signs Temp 98.2 F 09/03/16 16:37 Pulse 106 H 09/03/16 16:37 Resp 20 09/03/16 16:37 BP 158/90 H 09/03/16 16:37 Pulse Ox 95 09/03/16 16:37 - Medical History PMH: Anemia, Anxiety, Asthma, Bipolar Disorder, COPD, Depression, Gastritis ( secondary to ETOH), HTN, Hypercholesterolemia, Pancreatitis (secondary to ETOH) , Schizophrenia Denies: Alzheimer's Disease, Atrial Fibrillation, Bronchitis, Cardia Arrhythmia, CHF, Dementia, Diabetes, Emphysema, Hepatitis, HIV, Migraine, Mitral Valve Prolapse, Multiple Sclerosis, Parkinson's Disease, Peripheral Edema , Pneumonia, Pulmonary Embolism, Chronic Kidney Disease, Sexually Transmitted Disease, Sleep Apnea Comment Only: Seizures (related to ETOH withdrawal) - Surgical History Surgical History: Denies: Pacemaker - Family History Family History: States: Unknown Family Hx - Immunization History Hx Tetanus Toxoid Vaccination: Yes (As per patient, TDaP uptodate ( about 3 years ago)) Hx Influenza Vaccination: No Hx Pneumococcal Vaccination: No - Home Medications Home Medications: Ambulatory Orders Medication Instructions Recorded Doxepin HCl [Doxepin HCl] 1 tab PO HS 09/03/16 Folic Acid [Folic Acid] 1 tab PO DAILY 09/03/16 Gabapentin [Neurontin] 1 tab PO HS 09/03/16 Pravastatin Sodium [Pravachol] 1 tab PO DAILY 09/03/16 QUEtiapine [SEROquel] 1 tab PO HS 09/03/16 Sertraline HCl [Sertraline HCl] 1 tab PO DAILY 09/03/16 Thiamine Mononitrate [Vitamin B-1] 1 tab PO DAILY 09/03/16 amLODIPine [Norvasc] 1 tab PO DAILY 09/03/16 traMADol [Ultram] 1 tab PO PRN PRN 09/03/16 - Allergies Allergies/Adverse Reactions: Allergies Allergy/AdvReac Type Severity Reaction Status Date / Time No Known Allergies Allergy Verified 09/03/16 16:36 Review of Systems ROS Statement: Except As Marked, All Systems Reviewed And Found Negative Review Of Systems: ROS cannot be obtained secondary to pt's inabilty to answer questions. Psych: Positive for: Suicidal ideation (with plan) Physical Exam - Reviewed Nursing Documentation Reviewed: Yes Vital Signs Reviewed: Yes - Physical Exam Appears: Positive for: Non-toxic, No Acute Distress Head Exam: Positive for: ATRAUMATIC, NORMOCEPHALIC Skin: Positive for: Normal Color, Warm Eye Exam: Positive for: Normal appearance, EOMI Neurologic/Psych: Positive for: Alert, Oriented - Laboratory Results Result Diagrams: 09/03/16 17:32 09/03/16 17:32 - ECG O2 Sat by Pulse Oximetry: 95 (RA) Pulse Ox Interpretation: Normal Medical Decision Making Medical Decision Makin:46 Initial Impression: Alcohol Ingestion Initial Plan: * CMP * CBC * Alcohol Serum * Urine Drug Screen * 1:1 Obs * Reevaluation Scribe Attestation: Documented by Mabel Mancera, acting as a scribe for Marilou Lombardi PA-C. Provider Scribe Attestation: All medical record entries made by the Scribe were at my direction and personally dictated by me. I have reviewed the chart and agree that the record accurately reflects my personal performance of the history, physical exam, medical decision making, and the department course for this patient. I have also personally directed, reviewed, and agree with the discharge instructions and disposition ED OBSERVATION Date of observation admission: 09/03/16 Time of observation admission: 17:00 - Observation admission statement Patient is being placed in observation because:: intox/crisis eval Disposition - Clinical Impression Clinical Impression: Alcohol intoxication - Patient ED Disposition Is Patient to be Admitted: Transfer of Care - Disposition Disposition Time: 20:59 Condition: STABLE Patient Signed Over To: Jeannine Canchola Handoff Comments: crisis
[2016-09-03 17:36] LABS: BASO # 0.2 K/uL (0.0-0.2); BASO % 1.4 % (0.0-2.0); EOS # 0.2 K/uL (0.0-0.7); HEMATOCRIT 49.9 % (35.0-51.0); LYMPH # 5.7 K/uL (1.0-4.3); LYMPH % 46.1 % (20.0-40.0); MEAN CELL VOLUME 89.8 fl (80.0-94.0); MEAN CORPUSCULAR HEMOGLOBIN 29.9 pg (27.0-31.0); MEAN CORPUSCULAR HGB CONC 33.2 g/dL (33.0-37.0); MEAN PLATELET VOLUME 7.6 fl (7.2-11.7); MONO # 0.5 K/uL (0.0-0.8); MONO % 4.4 % (0.0-10.0); NEUT # 5.7 K/uL (1.8-7.0); NEUT % 46.1 % (50.0-75.0); NRBC % 0.1 % (0.0-0.0); RED CELL DISTRIBUTION WIDTH 15.7 % (11.5-14.5); WHITE BLOOD COUNT 12.4 K/uL (4.8-10.8)
[2016-09-03 17:45] LABS: ALB/GLOB RATIO 1.2 (1.0-2.1); ALKALINE PHOSPHATASE 189 U/L (38-126); ALT/SGPT 55 U/L (21-72); AST/SGOT 46 U/L (17-59); BILIRUBIN,TOTAL 0.6 mg/dl (0.2-1.3); BLOOD UREA NITROGEN 12 mg/dl (9-20); CALCIUM 9.1 mg/dL (8.4-10.2); CARBON DIOXIDE 20 mmol/L (22-30); CHLORIDE 105 mmol/L (98-107); GFR AFRICAN-AMERICAN > 60; GLUCOSE,RANDOM 91 mg/dL (75-110); POTASSIUM 3.9 MMOL/L (3.6-5.0); SODIUM 146 mmol/l (132-148); TOTAL PROTEIN 8.8 G/DL (6.3-8.2)
[2016-09-03 18:01] LABS: ALCOHOL SERUM 301 mg/dl (0-10)
--- NOTE | 2016-09-03 21:14 | ED PDOC ---
- Laboratory Results Result Diagrams: 09/03/16 17:32 09/03/16 17:32 - ECG O2 Sat by Pulse Oximetry: 95 (RA) Medical Decision Making Medical Decision Making: Case endorsed to hand sign writer from JOAN Lombardi at 21:00 pending clinical sobriety HPI reviewed: HPI: Psych/Substance Abuse Time Seen by Provider: 09/03/16 16:41 Chief Complaint (Nursing): Alcohol Ingestion Chief Complaint (Provider): Alcohol Ingestion History Per: Patient History/Exam Limitations: intoxication Modifying Factor(s): Alcohol Additional Complaint(s): 16:41 Ryley Torres is a 56 year old patient with a history of mental illness that was brought to the ED via EMS and [place] [employer] after [place] [employer] was alerted of his "disturbing behavior" in his apartment. Patient states that he is unsure if he is compliant with his medication, and reports that he "drank four pints of vodka" today. Upon arrival to the ED he was aggressive, but became calm and cooperative once [place] [employer] left. Patient admitted to suicidal ideations with plan to [place] [employer], but did not admit to midlevel provider. Of Note: Patient was admitted to the hospital on August 19 and was recently discharged on August 30. PMD: None Medical Decision Making Medical Decision Makin:46 Initial Impression: Alcohol Ingestion Initial Plan: * CMP * CBC * Alcohol Serum * Urine Drug Screen * 1:1 Obs * Reevaluation * Upon my eval, Pt in bed asleep in NAD. ETOH 301 at 1900 Pt underwent crisis eval at 01:00, see notes. Stable for discharge. Disposition - Clinical Impression Clinical Impression: Alcohol intoxication - POA Present On Arrival: None - Disposition Disposition: Routine/Home Disposition Time: 04:18 Condition: STABLE
[2016-09-03 21:45] VITALS: BP 122/66; PULSE 80; RESP 18; TEMP 98.3
[2016-09-04 04:19] VITALS: O2SAT 95
== END 2016-09-04 04:15 | disposition home or self-care (01) ==
LOC: H.ER 16:33 → H.EROBSV 20:57
PROVIDERS: ADMIT Emergency Medicine; ATTEND Emergency Medicine
DX: F10.129 Alcohol abuse with intoxication, unspecified (principal); Z86.59 Personal history of other mental and behavioral disorders; I10 Essential (primary) hypertension; J45.909 Unspecified asthma, uncomplicated

== ENCOUNTER 2016-09-06 19:52 | Emergency (ER) | payer OTHER ==
--- NOTE | 2016-09-06 20:45 | ED PDOC ---
HPI: Psych/Substance Abuse Time Seen by Provider: 09/06/16 20:25 Chief Complaint (Provider): Back Pain ED Caveat: Intoxicated History Per: Patient History/Exam Limitations: no limitations, intoxication (mild) Current Symptoms Are (Timing): Still Present Ingestion Of Substance: ETOH Modifying Factor(s): Alcohol Severity: Moderate Associated Symptoms: Anger Additional Complaint(s): Ryley Torres is a 56 year old male, with a past medical history of depression, anxiety, and bipolar disorder, who presents to the emergency department via EMS (due to public intoxication) for the evaluation of back pain that occurred after lifting 300 lb bed. Of note, patient has a past medical history of chronic back pain in which he had a spinal procedure done to assist with the pain. Past Medical History Reviewed: Historical Data, Nursing Documentation, Vital Signs - Medical History PMH: Anemia, Anxiety, Asthma, Bipolar Disorder, COPD, Depression, Gastritis ( secondary to ETOH), GERD, HTN, Hypercholesterolemia, Pancreatitis (secondary to ETOH), Schizophrenia, Seizures (secondary to ETOH withdrawal) Denies: Alzheimer's Disease, Atrial Fibrillation, Bronchitis, Cardia Arrhythmia, CHF, Dementia, Diabetes, Emphysema, Hepatitis, HIV, Migraine, Mitral Valve Prolapse, Multiple Sclerosis, Parkinson's Disease, Peripheral Edema , Pneumonia, Pulmonary Embolism, Chronic Kidney Disease, Sexually Transmitted Disease, Sleep Apnea - Surgical History Surgical History: Denies: Pacemaker - Family History Family History: States: Unknown Family Hx - Social History Current smoker - smoking cessation education provided: Yes Alcohol: > 2 Drinks/Day - Immunization History Hx Tetanus Toxoid Vaccination: Yes (As per patient, TDaP uptodate ( about 3 years ago)) Hx Influenza Vaccination: No Hx Pneumococcal Vaccination: No - Home Medications Home Medications: Ambulatory Orders Medication Instructions Recorded Doxepin HCl [Doxepin HCl] 1 tab PO HS 09/03/16 Folic Acid [Folic Acid] 1 tab PO DAILY 09/03/16 Gabapentin [Neurontin] 1 tab PO HS 09/03/16 Pravastatin Sodium [Pravachol] 1 tab PO DAILY 09/03/16 QUEtiapine [SEROquel] 1 tab PO HS 09/03/16 Sertraline HCl [Sertraline HCl] 1 tab PO DAILY 09/03/16 Thiamine Mononitrate [Vitamin B-1] 1 tab PO DAILY 09/03/16 amLODIPine [Norvasc] 1 tab PO DAILY 09/03/16 traMADol [Ultram] 1 tab PO PRN PRN 09/03/16 Naproxen [Naprosyn Tab] 1 tab PO Q8 PRN #21 tab 09/06/16 - Allergies Allergies/Adverse Reactions: Allergies Allergy/AdvReac Type Severity Reaction Status Date / Time No Known Allergies Allergy Verified 09/03/16 16:36 Review of Systems Musculoskeletal: Positive for: Back Pain (lower) Psych: Positive for: Other (intoxicated) Physical Exam - Reviewed Nursing Documentation Reviewed: Yes Vital Signs Reviewed: Yes - Physical Exam Appears: Positive for: Non-toxic, No Acute Distress Skin: Positive for: Normal Color, Dry Back: Positive for: Normal Inspection, Vertebral Tenderness (para-lumbar region) , Decreased ROM. Negative for: L CVA Tenderness, R CVA Tenderness Neurologic/Psych: Positive for: Alert. Negative for: Oriented - Progress ED Course And Treament: Toradol 60 mg IM x 1 dose Patient noted with steady gait Medical Decision Making Medical Decision Makin:25 Initial Impression: back pain Initial Plan: * Toradol 60mg IM * Reevaluation Scribe Attestation: Documented by Moustapha Ventura, training under Venice Vazquez, acting as a scribe for Christine Roche PA-C. Provider Scribe Attestation: All medical record entries made by the Scribe were at my direction and personally dictated by me. I have reviewed the chart and agree that the record accurately reflects my personal performance of the history, physical exam, medical decision making, and the department course for this patient. I have also personally directed, reviewed, and agree with the discharge instructions and disposition. Disposition - Clinical Impression Clinical Impression: Back strain, Alcohol intoxication - Patient ED Disposition Is Patient to be Admitted: No - Disposition Disposition: Routine/Home Disposition Time: 23:24 Condition: STABLE Prescriptions: Naproxen [Naprosyn Tab] 1 tab PO Q8 PRN #21 tab PRN Reason: Pain, Moderate (4-7) Instructions: Back Pain (ED)
[2016-09-06 20:50] VITALS: BP 129/83; PULSE 76; RESP 18; TEMP 98.3; O2SAT 99
== END 2016-09-06 23:52 | disposition home or self-care (01) ==
LOC: H.ER 19:52
DX: F10.129 Alcohol abuse with intoxication, unspecified (principal); S39.012A Strain of muscle, fascia and tendon of lower back, initial encounter; X50.0XXA Overexertion from strenuous movement or load, initial encounter; I10 Essential (primary) hypertension; E78.00 Pure hypercholesterolemia, unspecified

== ENCOUNTER 2016-09-08 00:04 | Emergency (ER) | payer OTHER ==
[2016-09-08 00:09] VITALS: BP 152/86; PULSE 96; RESP 18; TEMP 97.9; O2SAT 100
--- NOTE | 2016-09-08 01:12 | ED PDOC ---
HPI: Back Time Seen by Provider: 09/08/16 00:18 Chief Complaint (Nursing): Back Pain Chief Complaint (Provider): low back pain History Per: Patient History/Exam Limitations: no limitations Onset/Duration Of Symptoms: Days (2) Current Symptoms Are (Timing): Still Present Exacerbating Factor(s): Turning, Movement, Sitting, Standing Additional History Per: Patient Additional Complaint(s): 56 y/o male brought in by EMS for low back pain x 2 days. Patient states symptoms started after lifting his bed. Denies fever, nausea/vomiting Past Medical History Vital Signs: Last Vital Signs Temp 97.9 F 09/08/16 00:07 Pulse 96 H 09/08/16 00:07 Resp 18 09/08/16 00:07 BP 152/86 H 09/08/16 00:07 Pulse Ox 100 09/08/16 00:07 - Medical History PMH: Anemia, Anxiety, Asthma, Bipolar Disorder, COPD, Depression, Gastritis ( secondary to ETOH), GERD, HTN, Hypercholesterolemia, Pancreatitis (secondary to ETOH), Schizophrenia, Seizures (secondary to ETOH withdrawal) Denies: Alzheimer's Disease, Atrial Fibrillation, Bronchitis, Cardia Arrhythmia, CHF, Dementia, Diabetes, Emphysema, Hepatitis, HIV, Migraine, Mitral Valve Prolapse, Multiple Sclerosis, Parkinson's Disease, Peripheral Edema , Pneumonia, Pulmonary Embolism, Chronic Kidney Disease, Sexually Transmitted Disease, Sleep Apnea - Surgical History Surgical History: Denies: Pacemaker - Family History Family History: States: Unknown Family Hx - Immunization History Hx Tetanus Toxoid Vaccination: Yes (As per patient, TDaP uptodate ( about 3 years ago)) Hx Influenza Vaccination: No Hx Pneumococcal Vaccination: No - Home Medications Home Medications: Ambulatory Orders Medication Instructions Recorded Doxepin HCl [Doxepin HCl] 1 tab PO HS 09/03/16 Folic Acid [Folic Acid] 1 tab PO DAILY 09/03/16 Gabapentin [Neurontin] 1 tab PO HS 09/03/16 Pravastatin Sodium [Pravachol] 1 tab PO DAILY 09/03/16 QUEtiapine [SEROquel] 1 tab PO HS 09/03/16 Sertraline HCl [Sertraline HCl] 1 tab PO DAILY 09/03/16 Thiamine Mononitrate [Vitamin B-1] 1 tab PO DAILY 09/03/16 amLODIPine [Norvasc] 1 tab PO DAILY 09/03/16 traMADol [Ultram] 1 tab PO PRN PRN 09/03/16 Naproxen [Naprosyn Tab] 1 tab PO Q8 PRN #21 tab 09/06/16 Cyclobenzaprine [Cyclobenzaprine 10 mg PO BID PRN #10 tab 09/08/16 HCl] - Allergies Allergies/Adverse Reactions: Allergies Allergy/AdvReac Type Severity Reaction Status Date / Time No Known Allergies Allergy Verified 09/03/16 16:36 - ECG O2 Sat by Pulse Oximetry: 100 - Other Rad lumbar spine xray X-Ray: Viewed By Me X-Ray Interpretation: no acute findings - Progress ED Course And Treament: xray lspine, Toradol IM, flexeril PO On re-eval, patient notes some improvement of pain, but still present. Tramadol PO ordered. Patient states he was prescribed Naproxen yesterday but unable to fill it; advised to fill today. Rx Flexeril given. FOllow up PMD 2-3 days. Return to ED for worsening/concerning symptoms. Disposition - Clinical Impression Clinical Impression: Low back pain Counseled Patient/Family Regarding: Studies Performed, Diagnosis, Need For Followup, Rx Given - Disposition Referrals: Dong Gomez MD [Primary Care Provider] - Disposition: Routine/Home Disposition Time: 04:10 Condition: IMPROVED Prescriptions: Cyclobenzaprine [Cyclobenzaprine HCl] 10 mg PO BID PRN #10 tab PRN Reason: Muscle Spasm Instructions: Acute Low Back Pain (ED)
--- NOTE | 2016-09-08 09:47 | RAD ---
PROCEDURE: Radiographs of the Lumbar Spine. HISTORY: injury, low back pain COMPARISON: No prior. FINDINGS: BONES: There is a mild compression fracture of the superior endplate of L2. This is probably acute or subacute DISC SPACES: Disc degeneration at L5-S1. OTHER FINDINGS: None. IMPRESSION: Compression fracture of L2 probably acute or subacute
== END 2016-09-08 04:12 | disposition home or self-care (01) ==
LOC: H.ER 00:04
DX: M54.5 Low back pain (principal); E78.00 Pure hypercholesterolemia, unspecified; F20.9 Schizophrenia, unspecified; F31.9 Bipolar disorder, unspecified; F41.9 Anxiety disorder, unspecified; I10 Essential (primary) hypertension

== ENCOUNTER 2016-09-09 04:44 | Emergency (ER) | payer OTHER ==
[2016-09-09 04:57] VITALS: BP 158/80; PULSE 98; RESP 18; TEMP 98.4; O2SAT 97
--- NOTE | 2016-09-09 05:20 | ED PDOC ---
HPI: Back Time Seen by Provider: 09/09/16 04:51 Chief Complaint (Nursing): Back Pain Chief Complaint (Provider): low back pain History Per: Patient History/Exam Limitations: no limitations Onset/Duration Of Symptoms: Days Current Symptoms Are (Timing): Still Present Additional Complaint(s): 56yo male well known to ED and this provider for multiple visits and drug- seeking behavior presents to the ED with c/o chronic low back pain. Denies any other medical complaints including new falls/trauma. Past Medical History Reviewed: Historical Data, Nursing Documentation, Vital Signs Vital Signs: Last Vital Signs Temp 98.4 F 09/09/16 04:54 Pulse 98 H 09/09/16 04:54 Resp 18 09/09/16 04:54 BP 158/80 H 09/09/16 04:54 Pulse Ox 97 09/09/16 04:54 - Medical History PMH: Anemia, Anxiety, Asthma, Bipolar Disorder, COPD, Depression, Gastritis ( secondary to ETOH), GERD, HTN, Hypercholesterolemia, Pancreatitis (secondary to ETOH), Schizophrenia, Seizures (secondary to ETOH withdrawal), Chronic Pain ( low back pain ) Denies: Alzheimer's Disease, Atrial Fibrillation, Bronchitis, Cardia Arrhythmia, CHF, Dementia, Diabetes, Emphysema, Hepatitis, HIV, Migraine, Mitral Valve Prolapse, Multiple Sclerosis, Parkinson's Disease, Peripheral Edema , Pneumonia, Pulmonary Embolism, Chronic Kidney Disease, Sexually Transmitted Disease, Sleep Apnea - Surgical History Surgical History: No Surg Hx Denies: Pacemaker - Family History Family History: States: No Known Family Hx - Social History Current smoker - smoking cessation education provided: No Alcohol: None Drugs: Denies - Immunization History Hx Tetanus Toxoid Vaccination: Yes (As per patient, TDaP uptodate ( about 3 years ago)) Hx Influenza Vaccination: No Hx Pneumococcal Vaccination: No - Home Medications Home Medications: Ambulatory Orders Medication Instructions Recorded Doxepin HCl [Doxepin HCl] 1 tab PO HS 09/03/16 Folic Acid [Folic Acid] 1 tab PO DAILY 09/03/16 Gabapentin [Neurontin] 1 tab PO HS 09/03/16 Pravastatin Sodium [Pravachol] 1 tab PO DAILY 09/03/16 QUEtiapine [SEROquel] 1 tab PO HS 09/03/16 Sertraline HCl [Sertraline HCl] 1 tab PO DAILY 09/03/16 Thiamine Mononitrate [Vitamin B-1] 1 tab PO DAILY 09/03/16 amLODIPine [Norvasc] 1 tab PO DAILY 09/03/16 traMADol [Ultram] 1 tab PO PRN PRN 09/03/16 Naproxen [Naprosyn Tab] 1 tab PO Q8 PRN #21 tab 09/06/16 Cyclobenzaprine [Cyclobenzaprine 10 mg PO BID PRN #10 tab 09/08/16 HCl] - Allergies Allergies/Adverse Reactions: Allergies Allergy/AdvReac Type Severity Reaction Status Date / Time No Known Allergies Allergy Verified 09/09/16 04:54 Review of Systems ROS Statement: Except As Marked, All Systems Reviewed And Found Negative Musculoskeletal: Positive for: Back Pain (chronic low back pain ) Physical Exam - Reviewed Nursing Documentation Reviewed: Yes Vital Signs Reviewed: Yes - Physical Exam Appears: Positive for: Well, No Acute Distress Head Exam: Positive for: ATRAUMATIC, NORMAL INSPECTION, NORMOCEPHALIC Skin: Positive for: Normal Color, Warm, Dry Eye Exam: Positive for: Normal appearance ENT: Positive for: Normal ENT Inspection Neck: Positive for: Normal, Painless ROM, Supple Cardiovascular/Chest: Positive for: Regular Rate, Rhythm. Negative for: Murmur , Tachycardia Respiratory: Positive for: Normal Breath Sounds. Negative for: Wheezing, Respiratory Distress Gastrointestinal/Abdominal: Positive for: Normal Exam, Bowel Sounds, Soft. Negative for: Tenderness Back: Positive for: Normal Inspection. Negative for: L CVA Tenderness, R CVA Tenderness, Vertebral Tenderness Extremity: Positive for: Normal ROM. Negative for: Deformity, Swelling Neurologic/Psych: Positive for: Alert, Oriented - ECG O2 Sat by Pulse Oximetry: 97 Pulse Ox Interpretation: Normal (RA) Medical Decision Making Medical Decision Makin: Impression: chronic low back pain Plan: Patient advised he will not receive narcotics and instructed to f/u w/ oil painter. Toradol 60mg IM ordered and patient stable for d/c. pt felt better w toradol Scribe Attestation: Documented by Mary Carmen Castillo acting as a scribe for Denae Chun MD. Provider Scribe Attestation: All medical record entries made by the Scribe were at my direction and personally dictated by me. I have reviewed the chart and agree that the record accurately reflects my personal performance of the history, physical exam, medical decision making, and the department course for this patient. I have also personally directed, reviewed, and agree with the discharge instructions and disposition. Disposition - Clinical Impression Clinical Impression: Back disorder - Patient ED Disposition Is Patient to be Admitted: No - Disposition Referrals: [facility] [Outside] [facility] [Outside] Disposition: Routine/Home Disposition Time: 06:19 Condition: GOOD Additional Instructions: follow up with pain management for chronic back pain. return to the ED with any worsening or concerning symptoms Instructions: Chronic Back Pain (ED)
== END 2016-09-09 06:21 | disposition home or self-care (01) ==
LOC: H.ER 04:44
DX: M54.5 Low back pain (principal)

== ENCOUNTER 2016-09-14 10:58 | Observation (INO) | payer MEDICAID, OTHER ==
[2016-09-14 11:03] VITALS: BMI 33.3
[2016-09-14 11:04] VITALS: O2SAT 97
[2016-09-14] MEDS ORDERED: Sodium Chloride 0.9% 1,000 ML IV STA (12:07)
--- NOTE | 2016-09-14 12:18 | ED PDOC ---
HPI: Abdomen Time Seen by Provider: 09/14/16 11:26 Chief Complaint (Nursing): GI Problem Chief Complaint (Provider): GI Problem History Per: Patient History/Exam Limitations: no limitations Onset/Duration Of Symptoms: Hrs Current Symptoms Are (Timing): Still Present Severity: Mild Location Of Pain/Discomfort: Epigastric Associated Symptoms: Nausea, Vomiting, Diarrhea Exacerbating Factors: None Alleviating Factors: None Additional Complaint(s): Patient is a 56 year old male who presents to ED for evaluation of abdominal pain, sudden onset today with vomiting and diarrhea. Patient admits to drinking alcohol all day, consumed 2 pints [employer]. Patient also reports back pain earlier today that has since resolved. Denies fall, chest pain or SOB. Past Medical History Reviewed: Historical Data, Nursing Documentation, Vital Signs Vital Signs: Last Vital Signs Temp 98.0 F 09/14/16 11:04 Pulse 96 H 09/14/16 11:04 Resp 16 09/14/16 11:04 BP 132/81 09/14/16 11:04 Pulse Ox 97 09/14/16 16:46 - Medical History PMH: Anemia, Anxiety, Asthma, Bipolar Disorder, COPD, Depression, Gastritis ( secondary to ETOH), GERD, HTN, Hypercholesterolemia, Pancreatitis (secondary to ETOH), Schizophrenia, Seizures (secondary to ETOH withdrawal), Chronic Pain ( low back pain ) Denies: Alzheimer's Disease, Atrial Fibrillation, Bronchitis, Cardia Arrhythmia, CHF, Dementia, Diabetes, Emphysema, Hepatitis, HIV, Migraine, Mitral Valve Prolapse, Multiple Sclerosis, Parkinson's Disease, Peripheral Edema , Pneumonia, Pulmonary Embolism, Chronic Kidney Disease, Sexually Transmitted Disease, Sleep Apnea - Surgical History Surgical History: No Surg Hx Denies: Pacemaker - Family History Family History: States: No Known Family Hx - Social History Current smoker - smoking cessation education provided: Yes Alcohol: > 2 Drinks/Day Drugs: Denies - Immunization History Hx Tetanus Toxoid Vaccination: Yes (As per patient, TDaP uptodate ( about 3 years ago)) Hx Influenza Vaccination: No Hx Pneumococcal Vaccination: No - Home Medications Home Medications: Ambulatory Orders Medication Instructions Recorded Doxepin HCl [Doxepin HCl] 1 tab PO HS 09/03/16 Folic Acid [Folic Acid] 1 tab PO DAILY 09/03/16 Gabapentin [Neurontin] 1 tab PO HS 09/03/16 Pravastatin Sodium [Pravachol] 1 tab PO DAILY 09/03/16 QUEtiapine [SEROquel] 1 tab PO HS 09/03/16 Sertraline HCl [Sertraline HCl] 1 tab PO DAILY 09/03/16 Thiamine Mononitrate [Vitamin B-1] 1 tab PO DAILY 09/03/16 amLODIPine [Norvasc] 1 tab PO DAILY 09/03/16 traMADol [Ultram] 1 tab PO PRN PRN 09/03/16 Naproxen [Naprosyn Tab] 1 tab PO Q8 PRN #21 tab 09/06/16 Cyclobenzaprine [Cyclobenzaprine 10 mg PO BID PRN #10 tab 09/08/16 HCl] - Allergies Allergies/Adverse Reactions: Allergies Allergy/AdvReac Type Severity Reaction Status Date / Time No Known Allergies Allergy Verified 09/09/16 04:54 Review of Systems ROS Statement: Except As Marked, All Systems Reviewed And Found Negative Gastrointestinal: Positive for: Nausea, Vomiting, Abdominal Pain, Diarrhea Musculoskeletal: Positive for: Back Pain (resolved ) Physical Exam - Reviewed Nursing Documentation Reviewed: Yes Vital Signs Reviewed: Yes - Physical Exam Appears: Positive for: Non-toxic, No Acute Distress Skin: Positive for: Normal Color, Warm Eye Exam: Positive for: Normal appearance Neck: Positive for: Normal, Painless ROM Cardiovascular/Chest: Positive for: Regular Rate, Rhythm. Negative for: Murmur Respiratory: Positive for: Normal Breath Sounds. Negative for: Respiratory Distress Gastrointestinal/Abdominal: Positive for: Soft, Tenderness (epigastric). Negative for: Distended, Guarding, Rebound Back: Positive for: Normal Inspection Extremity: Positive for: Normal ROM Neurologic/Psych: Positive for: Alert, Oriented - Laboratory Results Result Diagrams: 09/14/16 13:00 09/14/16 13:00 - ECG O2 Sat by Pulse Oximetry: 97 (RA) Pulse Ox Interpretation: Normal - Progress Re-evaluation Time: 16:45 Condition: Re-examined, Improved Medical Decision Making Medical Decision Making: Time: 1130 Initial impression: Acute pancreatitis, gastritis, alcohol intoxication. Initial plan: -- EKG -- Alcohol serum -- CMP -- Lipase -- CBC -- NSF and Zofran 1445 Pt is alert and awake. Ambulating with steady gait. Clinically sober for discharge. Scribe Attestation: Documented by Yecenia Kaplan acting as a scribe for José Manuel Kelly MD MD Scribe Attestation: All medical record entries made by the Scribe were at my direction and personally dictated by me. I have reviewed the chart and agree that the record accurately reflects my personal performance of the history, physical exam, medical decision making, and the department course for this patient. I have also personally directed, reviewed, and agree with the discharge instructions and disposition. ED OBSERVATION Date of observation admission: 09/14/16 Time of observation admission: 14:54 - Observation admission statement Patient is being placed in observation because:: pending sobriety Disposition - Clinical Impression Clinical Impression: Alcohol intoxication, Abdominal pain, Gastroenteritis - Patient ED Disposition Is Patient to be Admitted: No Doctor Will See Patient In The: Office Counseled Patient/Family Regarding: Studies Performed, Diagnosis, Need For Followup - Disposition Disposition: Routine/Home Disposition Time: 16:46 Condition: GOOD
[2016-09-14 14:27] LABS: BASO # 0.1 K/uL (0.0-0.2); BASO % 0.7 % (0.0-2.0); EOS # 0.3 K/uL (0.0-0.7); EOS % 3.5 % (0.0-4.0); HEMATOCRIT 48.1 % (35.0-51.0); LYMPH % 51.6 % (20.0-40.0); MEAN CELL VOLUME 88.6 fl (80.0-94.0); MEAN CORPUSCULAR HEMOGLOBIN 30.2 pg (27.0-31.0); MEAN CORPUSCULAR HGB CONC 34.1 g/dL (33.0-37.0); MEAN PLATELET VOLUME 7.7 fl (7.2-11.7); MONO # 0.4 K/uL (0.0-0.8); MONO % 4.7 % (0.0-10.0); NEUT # 3.1 K/uL (1.8-7.0); NEUT % 39.5 % (50.0-75.0); NRBC % 0.1 % (0.0-0.0); RED CELL DISTRIBUTION WIDTH 15.4 % (11.5-14.5); WHITE BLOOD COUNT 7.8 K/uL (4.8-10.8)
[2016-09-14 14:28] LABS: ALB/GLOB RATIO 1.1 (1.0-2.1); ALCOHOL SERUM 286 mg/dl (0-10); ALKALINE PHOSPHATASE 131 U/L (38-126); ALT/SGPT 27 U/L (21-72); AST/SGOT 50 U/L (17-59); BILIRUBIN,TOTAL 0.7 mg/dl (0.2-1.3); BLOOD UREA NITROGEN 15 mg/dl (9-20); CALCIUM 9.2 mg/dL (8.4-10.2); CARBON DIOXIDE 24 mmol/L (22-30); CHLORIDE 103 mmol/L (98-107); GFR AFRICAN-AMERICAN > 60; GLUCOSE,RANDOM 101 mg/dL (75-110); LIPASE 266 U/L (23-300); SODIUM 148 mmol/l (132-148); TOTAL PROTEIN 8.8 G/DL (6.3-8.2)
[2016-09-14 14:37] LABS: POTASSIUM 4.7 MMOL/L (3.6-5.0)
[2016-09-14 18:38] VITALS: BP 141/86; PULSE 88; RESP 18; TEMP 98.6
--- NOTE | 2016-09-14 21:20 | CARD ---
APPROVED REPORT EKG Measurement Heart [id number] <Conclusion> Normal sinus rhythm Left anterior fascicular block Abnormal ECG
== END 2016-09-14 18:38 | disposition home or self-care (01) ==
LOC: H.ER 10:58 → H.EROBSV 14:54
PROVIDERS: ADMIT Emergency Medicine; ATTEND Emergency Medicine
DX: F10.129 Alcohol abuse with intoxication, unspecified (principal); Y90.8 Blood alcohol level of 240 mg/100 ml or more; K52.9 Noninfective gastroenteritis and colitis, unspecified; I10 Essential (primary) hypertension; E78.00 Pure hypercholesterolemia, unspecified; G89.29 Other chronic pain; F17.200 Nicotine dependence, unspecified, uncomplicated; K21.9 Gastro-esophageal reflux disease without esophagitis; J44.9 Chronic obstructive pulmonary disease, unspecified; F31.9 Bipolar disorder, unspecified; J45.909 Unspecified asthma, uncomplicated; F41.9 Anxiety disorder, unspecified; F20.9 Schizophrenia, unspecified; K29.20 Alcoholic gastritis without bleeding

== ENCOUNTER 2016-09-16 08:04 | Inpatient (IN) | payer OTHER ==
[2016-09-16 08:04] VITALS: BMI 33.3
[2016-09-16] MEDS ORDERED: Multivitamin (MVI) 10 ML, Thiamine 100 MG, Folic Acid 1 MG in Sodium Chloride 0.9% 1,00... IV ONE ×2 (09:05→11:56)
[2016-09-16] MEDS ORDERED: Lidocaine 5% Patch TD STA (09:06)
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
--- NOTE | 2016-09-16 10:24 | ED PDOC ---
- ECG O2 Sat by Pulse Oximetry: 98 (RA) Disposition - Clinical Impression Clinical Impression: Alcohol withdrawal - POA Present On Arrival: None - Disposition Disposition: Hospitalized as Observation Patient Disposition Time: 10:23 Condition: FAIR
[2016-09-16 10:25] LABS: GRANULAR CAST 1 /lpf (0-1); RBC URINE 1 /hpf (0-3); URINE BILIRUBIN NEGATIVE (NEGATIVE); URINE BLOOD NEGATIVE (NEGATIVE); URINE COLOR YELLOW (YELLOW); URINE GLUCOSE (UA) 50 mg/dL (Normal); URINE KETONE TRACE mg/dL (NEGATIVE); URINE LEUKOCYTE ESTERASE NEG Leu/uL (Negative); URINE PROTEIN 30 mg/dL (NEGATIVE); URINE UROBILINOGEN 0.2-1.0 mg/dL (0.2-1.0); WBC URINE 1 /hpf (0-5)
[2016-09-16 10:35] LABS: BASO # 0.1 K/uL (0.0-0.2); BASO % 0.5 % (0.0-2.0); EOS # 0.1 K/uL (0.0-0.7); HEMATOCRIT 46.2 % (35.0-51.0); LYMPH # 2.7 K/uL (1.0-4.3); LYMPH % 25.4 % (20.0-40.0); MEAN CELL VOLUME 86.7 fl (80.0-94.0); MEAN CORPUSCULAR HEMOGLOBIN 29.9 pg (27.0-31.0); MEAN CORPUSCULAR HGB CONC 34.5 g/dL (33.0-37.0); MEAN PLATELET VOLUME 7.1 fl (7.2-11.7); MONO # 0.7 K/uL (0.0-0.8); MONO % 6.3 % (0.0-10.0); NEUT # 7.2 K/uL (1.8-7.0); NEUT % 66.8 % (50.0-75.0); NRBC % 0.2 % (0.0-0.0); RED CELL DISTRIBUTION WIDTH 15.8 % (11.5-14.5); WHITE BLOOD COUNT 10.8 K/uL (4.8-10.8)
[2016-09-16 10:39] LABS: ALB/GLOB RATIO 1.2 (1.0-2.1); ALCOHOL SERUM 47 mg/dl (0-10); ALKALINE PHOSPHATASE 160 U/L (38-126); ALT/SGPT 43 U/L (21-72); AST/SGOT 53 U/L (17-59); BILIRUBIN,TOTAL 0.6 mg/dl (0.2-1.3); BLOOD UREA NITROGEN 15 mg/dl (9-20); CALCIUM 9.6 mg/dL (8.4-10.2); CARBON DIOXIDE 22 mmol/L (22-30); CHLORIDE 100 mmol/L (98-107); GFR AFRICAN-AMERICAN > 60; GLUCOSE,RANDOM 107 mg/dL (75-110); MAGNESIUM 1.6 MG/DL (1.6-2.3); POTASSIUM 3.9 MMOL/L (3.6-5.0); SODIUM 143 mmol/l (132-148); TOTAL PROTEIN 8.5 G/DL (6.3-8.2)
[2016-09-16] MEDS ORDERED: Albuterol HFA 90 mcg/actuation (8 g) IH PRN (11:51)
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
[2016-09-17] MEDS: Lidocaine 5% Patch TD SCH (08:56)
--- NOTE | 2016-09-17 14:25 | CP.PCM.PN ---
Subjective - Date & Time of Evaluation Date of Evaluation: 09/17/16 Time of Evaluation: 14:23 - Subjective Subjective: Patient seen an examined at bed side c/o lower back pain and lower ext reported felling better tolerated well PO , good appetite, had tremor improved, denied nausea,vomits ,diarrhea. , he also denied hallucinations . he lives alone no family support usinf walker to walk that a friend give to him. Objective - Vital Signs/Intake and Output Vital Signs (last 24 hours): Temp Pulse Resp BP Pulse Ox 98.5 F 113 H 20 130/82 96 09/17/16 12:20 09/17/16 12:20 09/17/16 12:20 09/17/16 12:20 09/17/16 12:20 - Medications Medications: Current Medications Albuterol (Ventolin Hfa 90 Mcg/Actuation (8 G)) 1 puff IH Q6H PRN PRN Reason: Shortness of Breath Amlodipine Besylate (Norvasc) 5 mg PO DAILY [facility] Last Admin: 09/17/16 08:54 Dose: 5 mg Chlordiazepoxide (Librium) 25 mg PO Q8 [facility] Last Admin: 09/17/16 08:54 Dose: 25 mg Cholecalciferol (Vitamin D) 2,000 iu PO DAILY [facility] Doxepin HCl (Sinequan) 10 mg PO HS [facility] Last Admin: 09/16/16 21:13 Dose: 10 mg Folic Acid (Folic Acid) 1 mg PO DAILY [facility] Last Admin: 09/17/16 08:52 Dose: 1 mg Ketorolac Tromethamine (Toradol) 15 mg IVP Q6 PRN PRN Reason: Pain, severe (8-10) Last Admin: 09/17/16 04:23 Dose: 15 mg Lidocaine (Lidoderm) 1 ea TD DAILY [facility] Last Admin: 09/17/16 08:56 Dose: 1 ea Lorazepam (Ativan) 2 mg IVP Q6 PRN PRN Reason: Symptoms of alcohol withdrawl Nicotine (Nicoderm Cq) 1 patch TD DAILY [facility] Last Admin: 09/17/16 08:54 Dose: 1 patch Ondansetron HCl (Zofran Inj) 4 mg IVP Q6 PRN PRN Reason: Nausea/Vomiting Pravastatin Sodium (Pravachol) 10 mg PO DAILY [facility] Last Admin: 09/17/16 08:55 Dose: 10 mg Quetiapine Fumarate (Seroquel) 50 mg PO HS [facility] Last Admin: 09/16/16 21:13 Dose: 50 mg Sertraline HCl (Zoloft) 100 mg PO DAILY [facility] Last Admin: 09/17/16 08:55 Dose: 100 mg Thiamine HCl (Vitamin B1 Tab) 100 mg PO DAILY [facility] Last Admin: 09/17/16 08:55 Dose: 100 mg - Head Exam Head Exam: NORMAL INSPECTION - ENT Exam ENT Exam: Mucous Membranes Moist - Neck Exam Neck Exam: Full ROM - Respiratory Exam Respiratory Exam: Decreased Breath Sounds. absent: Rales, Rhonchi - Cardiovascular Exam Cardiovascular Exam: REGULAR RHYTHM, RRR. absent: JVD - GI/Abdominal Exam GI & Abdominal Exam: Soft, Normal Bowel Sounds - Extremities Exam Extremities Exam: Normal Capillary Refill - Back Exam Back Exam: paraspinal tenderness Additional comments: tenderness in lower back. - Neurological Exam Neurological Exam: Abnormal Gait, Oriented x3 Additional comments: decrease motor strength on left foot , abnormal gait Romberg Negative - Psychiatric Exam Psychiatric exam: Anxious - Skin Skin Exam: Diaphoretic Assessment and Plan - Assessment and Plan (Free Text) Assessment: ETOH Withdrawal - ativan 2 mg IV Q6 prn - folic acid 1 mg PO daily - chlodiazepoxide 25 mg PO Q8 - nicotine patch x1 daily - thiamine 100 mg PO daily - neuro check Q4 - vital signs Q4 - social work referral ordered - CIWA Score :7 - tranfer to med/surg 2 ) Acute on chronic back pain Previous lumbar spine X-ray 09/08/16 showed compression fx at level of L2. Toradol 50 mg PO q 6hs Lidocaine patch daily Physical and occupational therapy Eval and treatment 3) Depression disroder - Sertraline 100 mg PO daily - Quetiapine 50 mg PO HS - Doxepin 10 mg PO HS - held Sertraline 50 mg PO daily 4) HTN - cont home meds 5) DVT prophylaxis - SCD - lovenox 40 mg s/c daily
[2016-09-18] MEDS ORDERED: ALENDRONATE 70 MG TAB PO SCH (06:30)
[2016-09-18] MEDS: Lidocaine 5% Patch TD SCH (09:19)
--- NOTE | 2016-09-18 12:22 | CP.PCM.PN ---
Subjective - Date & Time of Evaluation Date of Evaluation: 09/18/16 Time of Evaluation: 08:10 - Subjective Subjective: The patient is 56 y/o man w/ PMH of HTN, COPD, depression, anxiety asthma, pancreatitis presents to the ED with a complaint of lower back pain. The patient was seen this morning. There are no acute events overnight. The patient is not in acute distress. The patient still complains of back pain with sciatica of the right leg. The patient attempted ambulation with his walker yesterday but was limited due to pain. The patient denies alcohol withdrawal symptoms; stable vitals with no tremors, auditory, visual, or tactile hallucinations. The patient denies headaches, dizziness, chest pain, dyspnea, abdominal pain, nausea, vomiting, diarrhea, dysuria, and fevers. Objective - Vital Signs/Intake and Output Vital Signs (last 24 hours): Temp Pulse Resp BP Pulse Ox 97.5 F L 85 20 125/75 95 09/18/16 08:00 09/18/16 09:21 09/18/16 08:00 09/18/16 09:21 09/18/16 08:00 - Medications Medications: Current Medications Albuterol (Ventolin Hfa 90 Mcg/Actuation (8 G)) 1 puff IH Q6H PRN PRN Reason: Shortness of Breath Alendronate Sodium (Fosamax) 70 mg PO QWK [facility] Amlodipine Besylate (Norvasc) 5 mg PO DAILY [facility] Last Admin: 09/18/16 09:21 Dose: 5 mg Chlordiazepoxide (Librium) 25 mg PO Q8 [facility] Last Admin: 09/18/16 00:30 Dose: 25 mg Cholecalciferol (Vitamin D) 2,000 iu PO DAILY [facility] Last Admin: 09/18/16 09:22 Dose: 2,000 iu Doxepin HCl (Sinequan) 10 mg PO HS [facility] Last Admin: 09/17/16 21:41 Dose: 10 mg Folic Acid (Folic Acid) 1 mg PO DAILY [facility] Last Admin: 09/18/16 09:20 Dose: 1 mg Lidocaine (Lidoderm) 1 ea TD DAILY [facility] Last Admin: 09/18/16 09:19 Dose: 1 ea Lorazepam (Ativan) 2 mg IVP Q6 PRN PRN Reason: Symptoms of alcohol withdrawl Nicotine (Nicoderm Cq) 1 patch TD DAILY [facility] Last Admin: 09/18/16 09:19 Dose: 1 patch Ondansetron HCl (Zofran Inj) 4 mg IVP Q6 PRN PRN Reason: Nausea/Vomiting Pravastatin Sodium (Pravachol) 10 mg PO DAILY [facility] Last Admin: 09/18/16 09:23 Dose: 10 mg Quetiapine Fumarate (Seroquel) 50 mg PO HS [facility] Last Admin: 09/17/16 21:41 Dose: 50 mg Sertraline HCl (Zoloft) 100 mg PO DAILY [facility] Last Admin: 09/18/16 09:22 Dose: 100 mg Thiamine HCl (Vitamin B1 Tab) 100 mg PO DAILY [facility] Last Admin: 09/18/16 09:22 Dose: 100 mg Tramadol HCl (Ultram) 50 mg PO Q6 [facility] - Constitutional Appears: No Acute Distress - Head Exam Head Exam: ATRAUMATIC, NORMOCEPHALIC - ENT Exam ENT Exam: Mucous Membranes Moist - Respiratory Exam Respiratory Exam: Decreased Breath Sounds. absent: Accessory Muscle Use, Chest Wall Tenderness, Rales, Rhonchi, Wheezes, Respiratory Distress, Stridor - Cardiovascular Exam Cardiovascular Exam: REGULAR RHYTHM. absent: Tachycardia - GI/Abdominal Exam GI & Abdominal Exam: Soft, Normal Bowel Sounds. absent: Distended, Tenderness Additional comments: obese abdomen - Back Exam Back Exam: paraspinal tenderness, tenderness Additional comments: tenderness in lower thoracic paraspinal area - Neurological Exam Neurological Exam: Alert, Awake, Oriented x3 - Skin Skin Exam: Dry, Intact, Normal Color, Warm Assessment and Plan - Assessment and Plan (Free Text) Assessment: The patient is 56 y/o man w/ PMH of HTN, COPD, depression, anxiety asthma, pancreatitis presents to the ED with a complaint of lower back pain Plan: 1. ETOH Withdrawal - vitals stable, no tremors, no hallucinations (auditory, visual, tactile) - ativan 2 mg IV Q6 prn - folic acid 1 mg PO daily - chlodiazepoxide 25 mg PO Q8 - nicotine patch x1 daily - thiamine 100 mg PO daily - zofran IV Q6h prn for nausea - neuro check Q4 - vital signs Q4 - social work referral ordered - transfer patient to med/surg 2. Acute on chronic back pain - Lumbar spine X-ray 09/08/16: compression fx at level of L2. - Toradol 50 mg PO Q6h - Lidocaine patch daily - PT/OT Eval and treatment ordered - Started Alendronate 70 mg PO QWk - Vitamin D 2000 IU PO daily 3. Depression disroder - Sertraline 100 mg PO daily - Quetiapine 50 mg PO HS - Doxepin 10 mg PO HS - held Sertraline 50 mg PO daily 4. HTN - On home meds: Amlodipine 5 mg PO daily and Pravastatin 10 mg PO daily 5. COPD - On home meds: albuterol HFA 1 puff IH Q6h prn 6. DVT prophylaxis - lovenox 40 mg SC daily
[2016-09-18] MEDS: Enoxaparin 40 mg Syringe SC SCH (13:50)
[2016-09-19] MEDS: Lidocaine 5% Patch TD SCH (09:07)
[2016-09-19] MEDS: Enoxaparin 40 mg Syringe SC SCH (09:07)
--- NOTE | 2016-09-19 09:07 | CP.PCM.PN ---
Subjective - Date & Time of Evaluation Date of Evaluation: 09/19/16 Time of Evaluation: 07:10 - Subjective Subjective: The patient is 56 y/o man w/ PMH of HTN, COPD, depression, anxiety asthma, pancreatitis presents to the ED with a complaint of lower back pain. The patient was seen this morning. There are no acute events overnight. The patient is not in acute distress. The patient still complains of the same back pain with sciatica of the right leg. The patient ambulates to the bathroom but not farther. The patient is voiding and having adequate bowel movements. The patient continues to deny alcohol withdrawal symptoms; stable vitals with no tremors, auditory, visual, or tactile hallucinations. The patient denies headaches, dizziness, chest pain, dyspnea, abdominal pain, nausea, vomiting, diarrhea, dysuria, and fevers. Objective - Vital Signs/Intake and Output Vital Signs (last 24 hours): Temp Pulse Resp BP Pulse Ox 97.5 F L 88 20 137/87 98 09/19/16 08:48 09/19/16 08:48 09/19/16 08:48 09/19/16 08:48 09/19/16 08:48 - Medications Medications: Current Medications Albuterol (Ventolin Hfa 90 Mcg/Actuation (8 G)) 1 puff IH Q6H PRN PRN Reason: Shortness of Breath Alendronate Sodium (Fosamax) 70 mg PO QWK [facility] Amlodipine Besylate (Norvasc) 5 mg PO DAILY [facility] Last Admin: 09/18/16 09:21 Dose: 5 mg Chlordiazepoxide (Librium) 25 mg PO Q8 [facility] Last Admin: 09/19/16 00:33 Dose: 25 mg Cholecalciferol (Vitamin D) 2,000 iu PO DAILY [facility] Last Admin: 09/18/16 09:22 Dose: 2,000 iu Doxepin HCl (Sinequan) 10 mg PO HS [facility] Last Admin: 09/18/16 21:02 Dose: 10 mg Enoxaparin Sodium (Lovenox) 40 mg SC DAILY [facility] PRN Reason: Protocol Last Admin: 09/18/16 13:50 Dose: 40 mg Folic Acid (Folic Acid) 1 mg PO DAILY [facility] Last Admin: 09/18/16 09:20 Dose: 1 mg Lidocaine (Lidoderm) 1 ea TD DAILY [facility] Last Admin: 09/18/16 09:19 Dose: 1 ea Lorazepam (Ativan) 2 mg IVP Q6 PRN PRN Reason: Symptoms of alcohol withdrawl Nicotine (Nicoderm Cq) 1 patch TD DAILY [facility] Last Admin: 09/18/16 09:19 Dose: 1 patch Ondansetron HCl (Zofran Inj) 4 mg IVP Q6 PRN PRN Reason: Nausea/Vomiting Pravastatin Sodium (Pravachol) 10 mg PO DAILY [facility] Last Admin: 09/18/16 09:23 Dose: 10 mg Quetiapine Fumarate (Seroquel) 50 mg PO HS [facility] Last Admin: 09/18/16 21:02 Dose: 50 mg Sertraline HCl (Zoloft) 100 mg PO DAILY [facility] Last Admin: 09/18/16 09:22 Dose: 100 mg Thiamine HCl (Vitamin B1 Tab) 100 mg PO DAILY [facility] Last Admin: 09/18/16 09:22 Dose: 100 mg Tramadol HCl (Ultram) 50 mg PO Q6 [facility] Last Admin: 09/19/16 03:50 Dose: 50 mg - Constitutional Appears: No Acute Distress - Head Exam Head Exam: ATRAUMATIC, NORMOCEPHALIC - ENT Exam ENT Exam: Mucous Membranes Moist - Respiratory Exam Respiratory Exam: Decreased Breath Sounds. absent: Accessory Muscle Use, Chest Wall Tenderness, Prolonged Expiratory Phase, Rales, Rhonchi, Wheezes, Respiratory Distress, Stridor - Cardiovascular Exam Cardiovascular Exam: REGULAR RHYTHM. absent: Tachycardia - GI/Abdominal Exam GI & Abdominal Exam: Soft, Normal Bowel Sounds. absent: Distended, Tenderness Additional comments: obese abdomen - Extremities Exam Extremities Exam: absent: Calf Tenderness, Tenderness - Neurological Exam Neurological Exam: Alert, Awake, Oriented x3 - Skin Skin Exam: Dry, Intact, Normal Color, Warm Assessment and Plan - Assessment and Plan (Free Text) Assessment: The patient is 56 y/o man w/ PMH of HTN, COPD, depression, anxiety asthma, pancreatitis presents to the ED with a complaint of lower back pain Plan: 1. ETOH Withdrawal - vitals stable, no tremors, no hallucinations (auditory, visual, tactile) - ativan 2 mg IV Q6 prn - folic acid 1 mg PO daily - chlodiazepoxide 25 mg PO Q12 - nicotine patch x1 daily - thiamine 100 mg PO daily - zofran IV Q6h prn for nausea - neuro check Qshift - vital signs Qshift - social work referral ordered 2. Acute on chronic back pain - secondary to acute lumbar fracture - Lumbar spine X-ray 09/08/16: compression fracture at level of L2. - Toradol 50 mg PO Q6h - Lidocaine patch daily - PT/OT Eval and treatment ordered - Start Alendronate 70 mg PO QWk - Start calcitonin 200 IU nasal spray - Vitamin D 2000 IU PO daily - follow up Lumbar MRI w/o contrast - follow up Vitamin B12 and Vitamin D25-OH - NPO after midnight for kyphoplasty tomorrow 3. Depression disroder - Sertraline 100 mg PO daily - Quetiapine 50 mg PO HS - Doxepin 10 mg PO HS - held Sertraline 50 mg PO daily 4. HTN - On home meds: Amlodipine 5 mg PO daily and Pravastatin 10 mg PO daily 5. COPD - On home meds: albuterol HFA 1 puff IH Q6h prn 6. DVT prophylaxis - lovenox 40 mg SC daily
--- NOTE | 2016-09-19 11:29 | PQF GENQUE ---
This form is a permanent part of the medical record 09/19/16 Dr. Reed Joseph, Would you please clarify the possible cause of the fracture: Admitted with lower back pain and alcohol withdrawal. Documentation states a LS x-ray earlier this month revealed a compression fracture of L2. Treatment includes checking vitamin D, supplement , give pain meds and bisphosphonates. Clarification of your documentation is requested to better reflect the severity of illness and intensity of treatment of your patient. PHYSICIAN'S RESPONSE [ ] Traumatic fracture [ ] Non Traumatic fracture [ ] Pathologic fracture [ ] Other please specify [ ] Unable to determine. Based on your medical judgment of the clinical indicators outlined above please clarify the following: [] Practitioner response [] If unable to determine, please check the box, sign and date. Present On Admission (POA) Indicator: [] Present at the time of admission [] Not present at the time of admission [] Clinically Undetermined In responding to this query, please exercise your independent professional judgment. The fact that a question is asked does not imply that any particular answer is desired or expected. Thank you for your clarification on this documentation. If you have any questions please [phone] * Thank you, Ophelia Day RN CDMP MTDD
--- NOTE | 2016-09-19 14:29 | MRI ---
PROCEDURE: Lumbar spine dated 09/19/2016. HISTORY: Acute lumbar fracture L2 COMPARISON: Comparison made with plain film radiographs lumbar spine 09/08/2016. TECHNIQUE: Multiecho multiplanar sequences were performed through the lumbar spine without the use of intravenous contrast. . Note that the examination is limited by motion artifact. . Findings: Re- demonstrated is an acute/subacute fracture of the L2 vertebral body segment with mild retropulsion of the posterior superior cortex of. The retropulsed fragment does result in mild compressive effects on the ventral surface of the thecal sac however the overall central canal remains adequate. Facets are slightly overgrown. Exit foramina are also adequate. The remaining vertebral bodies are intact without evidence of additional acute or subacute compression deformities. Minor fish-mouth endplate changes are seen involving L3 and to a lesser degree L4 segments. The vertebral bodies and facets normally aligned. At the at L5-S1 level, there is fairly significant disc space narrowing with small broad-based bulge of the posterior annulus that extends slightly into the proximal inferior margins of both exit foramina more so on the right. The facets are mild to moderately hypertrophic. Central canal appears adequate. Exit foramina are narrowed bilaterally left greater than right. Note made of localized type 2 discogenic sclerosis posterior inferior margins of the L5 and S1 endplates. At the L4-L5 level, there is desiccation and mild disc space narrowing more so along the posterior disc margin. Minimal bulge of the posterior annulus extends into the proximal inferior margins of both exit foramina. Facets are slightly hypertrophic. Central canal appears adequate. Exit foramina are marginal to slightly narrowed without that compressive effects on the exiting foraminal nerve roots. At the L3-L4 level, there is mild age related disc desiccation. Disc space height maintained. There is minimal central and slightly more prominent overall mild bilateral foraminal disc bulging of. Central canal appears adequate. Facets are slightly overgrown. Exit foramina are adequate as well. At the L2-L3 level, there is mild age related disc desiccation. Disc space height no disc herniation or significant disc bulge. Facets are slightly overgrown. Central canal and exit foramina are adequate. Impression: Acute/subacute anterior wedge compression fracture L2 segment with mild retropulsion of the posterior superior cortex with no evidence of significant canal compromise. Multilevel degenerative spondylosis.
--- NOTE | 2016-09-19 14:49 | PCM.IRPREO ---
Pre Procedure Note - History Proposed Procedure: L2 kyphoplasty Pre-Op Diagnosis: Acute/subacute fracture of L2 - Previous Medical/Surgical History Pulmonary: Asthma Endocrine/Metabolic: ETOH Abuse Neuro: Backaches Pain: 6.Severe Pain - Pre Procedure Were any radiologic studies performed in the last 12 months: Yes List of radiologic studies performed: CT, MRI, Radiographs Was medical management performed in the past 24 months: Yes List of medical management performed: Conservative pain management. Clinical indication for the procedure: L2 compression fracture Have risks and benefits been explained to the patient: Yes Risks and benefits been explained to the patient: The risks and benefits of the procedure was explained to the patient in detail. Have alternatives to surgery explained to the patient as applicable: Yes - Allergies Allergies: Allergies No Known Allergies Allergy (Verified 09/16/16 08:29) - Physical Exam Vital Signs: Vital Signs 09/19/16 09/19/16 08:48 09:06 Temperature 97.5 F L Pulse Rate 88 88 Respiratory 20 Rate Blood Pressure 137/87 137/87 O2 Sat by Pulse 98 Oximetry Neuro: Other (No significant lower extremity weakness or sensory deficits. ) - Impression Impression: 56 y/o male with compression fracture of L2 from lifting a heavy object (demonstrated on Lumbar spine radiograph on 09/08/16) now presenting with severe pain in the lower back. Repeat MRI demonstrated acute/subacute fracture of L2 (which was not seen on the previous MRI from 08/25/16). There is mnimal retropulsion with mild mass effect on the anterior thecal sac. The patient is a candidate for kyphoplasty. This was discussed with the housestaff. Pt. Evaluated Today:Candidate for Anesthesia & Procedure: Evaluation for anesthesia will be performed by the attending anesthiologist.
[2016-09-20 06:15] LABS: HEMATOCRIT 41.5 % (35.0-51.0); MEAN CELL VOLUME 87.6 fl (80.0-94.0); MEAN CORPUSCULAR HEMOGLOBIN 29.7 pg (27.0-31.0); MEAN CORPUSCULAR HGB CONC 33.9 g/dL (33.0-37.0); RED CELL DISTRIBUTION WIDTH 15.4 % (11.5-14.5); WHITE BLOOD COUNT 6.6 K/uL (4.8-10.8)
[2016-09-20] MEDS ORDERED: Sodium Chloride 0.9% 1,000 ML IV SCH (07:45)
--- NOTE | 2016-09-20 08:11 | CP.PCM.PN ---
Subjective - Date & Time of Evaluation Date of Evaluation: 09/20/16 Time of Evaluation: 06:50 - Subjective Subjective: The patient is 56 y/o man w/ PMH of HTN, COPD, depression, anxiety asthma, pancreatitis presents to the ED with a complaint of lower back pain. The patient was seen this morning. There are no acute events overnight. The patient is not in acute distress. The patient still complains of the same back pain with sciatica of the right leg. The patient is aware that he is having a procedure today to address the fracture of his L2 vertebra. The patient has been NPO since midnight for the procedure. The patient is voiding and having adequate bowel movements. The patient continues to deny alcohol withdrawal symptoms; stable vitals with no tremors, auditory, visual, or tactile hallucinations. The patient denies headaches, dizziness, chest pain, dyspnea, abdominal pain, nausea, vomiting, diarrhea, dysuria, and fevers. Objective - Vital Signs/Intake and Output Vital Signs (last 24 hours): Temp Pulse Resp BP Pulse Ox 98.2 F 85 18 115/74 97 09/19/16 20:22 09/19/16 20:22 09/19/16 20:22 09/19/16 20:22 09/19/16 20:22 - Medications Medications: Current Medications Albuterol (Ventolin Hfa 90 Mcg/Actuation (8 G)) 1 puff IH Q6H PRN PRN Reason: Shortness of Breath Alendronate Sodium (Fosamax) 70 mg PO QWK [facility] Amlodipine Besylate (Norvasc) 5 mg PO DAILY [facility] Last Admin: 09/19/16 09:06 Dose: 5 mg Calcitonin [place] (Miacalcin) 200 iu TAMERA DAILY [facility] Chlordiazepoxide (Librium) 25 mg PO Q12 [facility] Last Admin: 09/19/16 22:01 Dose: 25 mg Cholecalciferol (Vitamin D) 2,000 iu PO DAILY [facility] Last Admin: 09/19/16 09:06 Dose: 2,000 iu Doxepin HCl (Sinequan) 10 mg PO HS [facility] Last Admin: 09/19/16 22:02 Dose: 10 mg Enoxaparin Sodium (Lovenox) 40 mg SC DAILY [facility] PRN Reason: Protocol Last Admin: 09/19/16 09:07 Dose: 40 mg Folic Acid (Folic Acid) 1 mg PO DAILY [facility] Last Admin: 09/19/16 09:06 Dose: 1 mg Sodium Chloride (Sodium Chloride 0.9%) 1,000 mls @ 100 mls/hr IV .Q10H [facility] Stop: 09/21/16 07:46 Lidocaine (Lidoderm) 1 ea TD DAILY [facility] Last Admin: 09/19/16 09:07 Dose: 1 ea Lorazepam (Ativan) 2 mg IVP Q6 PRN PRN Reason: Symptoms of alcohol withdrawl Nicotine (Nicoderm Cq) 1 patch TD DAILY [facility] Last Admin: 09/19/16 09:07 Dose: 1 patch Ondansetron HCl (Zofran Inj) 4 mg IVP Q6 PRN PRN Reason: Nausea/Vomiting Pravastatin Sodium (Pravachol) 10 mg PO DAILY [facility] Last Admin: 09/19/16 09:06 Dose: 10 mg Quetiapine Fumarate (Seroquel) 50 mg PO HS [facility] Last Admin: 09/19/16 22:03 Dose: 50 mg Sertraline HCl (Zoloft) 100 mg PO DAILY [facility] Last Admin: 09/19/16 09:06 Dose: 100 mg Thiamine HCl (Vitamin B1 Tab) 100 mg PO DAILY [facility] Last Admin: 09/19/16 09:05 Dose: 100 mg Tramadol HCl (Ultram) 50 mg PO Q6 [facility] Last Admin: 09/20/16 05:07 Dose: Not Given - Labs Labs: 09/20/16 05:00 PT 10.4 SECONDS (9.6-11.2) 09/19/16 13:54 INR 1.00 (0.92-1.08) 09/19/16 13:54 - Constitutional Appears: No Acute Distress - Head Exam Head Exam: ATRAUMATIC, NORMOCEPHALIC - ENT Exam ENT Exam: Mucous Membranes Moist - Respiratory Exam Respiratory Exam: Decreased Breath Sounds. absent: Accessory Muscle Use, Chest Wall Tenderness, Prolonged Expiratory Phase, Rales, Rhonchi, Wheezes, Respiratory Distress, Stridor - Cardiovascular Exam Cardiovascular Exam: REGULAR RHYTHM. absent: Tachycardia - GI/Abdominal Exam GI & Abdominal Exam: Soft, Normal Bowel Sounds. absent: Distended, Tenderness Additional comments: obese abdomen - Extremities Exam Extremities Exam: absent: Calf Tenderness, Tenderness - Neurological Exam Neurological Exam: Alert, Awake, Oriented x3 - Skin Skin Exam: Dry, Intact, Normal Color, Warm Assessment and Plan - Assessment and Plan (Free Text) Assessment: The patient is 56 y/o man w/ PMH of HTN, COPD, depression, anxiety asthma, pancreatitis presents to the ED with a complaint of lower back pain Plan: 1. ETOH Withdrawal - vitals remain stable, no tremors, no hallucinations (auditory, visual, tactile ) - ativan 2 mg IV Q6 prn - folic acid 1 mg PO daily - chlodiazepoxide 25 mg PO Q12 - nicotine patch x1 daily - thiamine 100 mg PO daily - zofran IV Q6h prn for nausea - neuro check Qshift - vital signs Qshift - social work referral ordered 2. Acute on chronic back pain - secondary to acute lumbar fracture, unable to specify cause - Lumbar spine X-ray 09/08/16: compression fracture at level of L2. - Toradol 50 mg PO Q6h - Lidocaine patch daily - PT/OT will see patient after kyphoplasty - start Alendronate 70 mg PO QWk - start Calcitonin 200 IU nasal spray - Vitamin D 2000 IU PO daily - Lumbar MRI w/o contrast 09/19/2016: acute/subacute anterior wedge compression fracture L2 segment w/ mild retropulsion of the posterior superior cortex with no evidence of significant canal compromise - Vitamin B12: 301 - follow up Vitamin D25-OH - NPO after midnight for kyphoplasty today - IVF NS @ 100mL/hr 3. Depression disroder - Sertraline 100 mg PO daily - Quetiapine 50 mg PO HS - Doxepin 10 mg PO HS - held Sertraline 50 mg PO daily 4. HTN - On home meds: Amlodipine 5 mg PO daily and Pravastatin 10 mg PO daily 5. COPD - On home meds: albuterol HFA 1 puff IH Q6h prn 6. DVT prophylaxis - lovenox 40 mg SC daily
[2016-09-20] MEDS: Lidocaine 5% Patch TD SCH (09:00)
[2016-09-20] MEDS: Calcitonin 200 Int Units/Inh Nasal Spray (3.7 ml) NAS SCH (09:01)
[2016-09-20] MEDS ORDERED: Midazolam 2 MG/2 ML VIAL ONE (12:30)
[2016-09-20] MEDS ORDERED: Propofol 10 mg/ml Inj (20 ML) ONE (12:31)
[2016-09-20] MEDS ORDERED: Neostigmine Methylsulfate 2 MG/2 ML ML IV ONE (12:37)
[2016-09-20] MEDS ORDERED: Rocuronium 10 mg/ml (5 ml) ONE (12:37)
[2016-09-20] MEDS ORDERED: Succinylcholine 200 mg/10 ml Inj IV ONE (12:37)
[2016-09-20] MEDS ORDERED: Lidocaine 1% Inj (20ml) ONE (13:35)
[2016-09-20] MEDS ORDERED: ceFAZolin 1 GM in Sodium Chloride 0.9% 100 ML IVPB ONE (14:00)
[2016-09-20] MEDS ORDERED: ePHEDrine 50 mg/ml Inj ONE (14:07)
[2016-09-20] MEDS ORDERED: Iodixanol 320 MG/ML 100 ML BOTTLE IV ONE (14:09)
--- NOTE | 2016-09-20 14:57 | PCM.SURG1 ---
Surgeon's Initial Post Op Note - Surgeon's Notes Surgeon: Amandeep Head Of [employer]: None Type of Anesthesia: General Endo, Local Pre-Operative Diagnosis: L2 compression fracture. Operative Findings: L2 compression fracture. Post-Operative Diagnosis: L2 compression fracture. Operation Performed: L2 Kyphoplasty Specimen/Specimens Removed: L2 vertebral body biopsy Estimated Blood Loss: EBL {In ML}: 5 Date of Surgery/Procedure: 09/20/16 Time of Surgery/Procedure: 14:40
[2016-09-20] MEDS ORDERED: HYDROmorphone 0.5 mg/0.5 ml ISec IVP PRN (15:26)
[2016-09-20] MEDS ORDERED: Lactated Ringer's 1,000 ML IV SCH (15:30)
[2016-09-20] MEDS ORDERED: Lactated Ringer's 1,000 ML IV ONE (17:00)
--- NOTE | 2016-09-20 17:14 | CP.PCM.PN ---
Subjective - Date & Time of Evaluation Date of Evaluation: 09/20/16 Time of Evaluation: 17:02 - Subjective Subjective: Post-procedure Note Pt seen and evaluated in the PACU s/p kyphoplasty of L2 compression fracture and vertebral body biopsy. Pt is awake and lying comfortably. Denies any pain at this time. Pt offers no complaints or concerns at this time. Asking if he will be able to eat dinner tonight, discussed that yes, his diet will be advanced. Vitals: Pulse 84, BP 127/76, O2 sat 99% on RA Gen: No acute distress CV: RRR, normal S1 and S2 Pulm: CTAB Back: Lumbar dressing C/D/I Abd: hypoactive bowel sounds; soft, ND, NT Extremities: moving all extremities spontaneously. no calf tenderness. no edema A/P: 56 yo M with hx of etoh abuse s/p vertebral body biopsy and L2 kyphoplasty for compression fracture (nontraumatic). -pain control -c/w LR at 200cc/hr for now -advance diet -new order placed for PT eval tomorrow Objective - Vital Signs/Intake and Output Vital Signs (last 24 hours): Temp Pulse Resp BP Pulse Ox 98.1 F 91 H 18 139/72 100 09/20/16 15:25 09/20/16 16:40 09/20/16 16:40 09/20/16 16:40 09/20/16 16:40 - Medications Medications: Current Medications Albuterol (Ventolin Hfa 90 Mcg/Actuation (8 G)) 1 puff IH Q6H PRN PRN Reason: Shortness of Breath Last Admin: 09/20/16 08:59 Dose: 1 puff Alendronate Sodium (Fosamax) 70 mg PO QWK [facility] Amlodipine Besylate (Norvasc) 5 mg PO DAILY [facility] Last Admin: 09/19/16 09:06 Dose: 5 mg Calcitonin [place] (Miacalcin) 200 iu TAMERA DAILY [facility] Last Admin: 09/20/16 09:01 Dose: 1 spray Chlordiazepoxide (Librium) 25 mg PO Q12 [facility] Last Admin: 09/19/16 22:01 Dose: 25 mg Cholecalciferol (Vitamin D) 2,000 iu PO DAILY [facility] Last Admin: 09/19/16 09:06 Dose: 2,000 iu Doxepin HCl (Sinequan) 10 mg PO HS [facility] Last Admin: 09/19/16 22:02 Dose: 10 mg Enoxaparin Sodium (Lovenox) 40 mg SC DAILY [facility] PRN Reason: Protocol Last Admin: 09/19/16 09:07 Dose: 40 mg Folic Acid (Folic Acid) 1 mg PO DAILY [facility] Last Admin: 09/19/16 09:06 Dose: 1 mg Hydromorphone HCl (Dilaudid) 0.5 mg IVP Q5M PRN PRN Reason: Pain, moderate (4-7) Stop: 09/20/16 17:27 Sodium Chloride (Sodium Chloride 0.9%) 1,000 mls @ 100 mls/hr IV .Q10H [facility] Stop: 09/21/16 07:46 Last Admin: 09/20/16 07:30 Dose: 100 mls/hr Lactated Ringer's (Lactated Ringer's) 1,000 mls @ 100 mls/hr IV .Q10H [facility] Lidocaine (Lidoderm) 1 ea TD DAILY [facility] Last Admin: 09/19/16 09:07 Dose: 1 ea Lorazepam (Ativan) 2 mg IVP Q6 PRN PRN Reason: Symptoms of alcohol withdrawl Nicotine (Nicoderm Cq) 1 patch TD DAILY [facility] Last Admin: 09/19/16 09:07 Dose: 1 patch Ondansetron HCl (Zofran Inj) 4 mg IVP Q6 PRN PRN Reason: Nausea/Vomiting Pravastatin Sodium (Pravachol) 10 mg PO DAILY [facility] Last Admin: 09/19/16 09:06 Dose: 10 mg Quetiapine Fumarate (Seroquel) 50 mg PO HS [facility] Last Admin: 09/19/16 22:03 Dose: 50 mg Sertraline HCl (Zoloft) 100 mg PO DAILY [facility] Last Admin: 09/19/16 09:06 Dose: 100 mg Thiamine HCl (Vitamin B1 Tab) 100 mg PO DAILY [facility] Last Admin: 09/19/16 09:05 Dose: 100 mg Tramadol HCl (Ultram) 50 mg PO Q6 [facility] Last Admin: 09/20/16 05:07 Dose: Not Given - Labs Labs: 09/20/16 05:00 PT 10.4 SECONDS (9.6-11.2) 09/19/16 13:54 INR 1.00 (0.92-1.08) 09/19/16 13:54
[2016-09-20 22:07] VITALS: RESP 20; O2SAT 96
--- NOTE | 2016-09-21 07:48 | CP.PCM.PN ---
Subjective - Date & Time of Evaluation Date of Evaluation: 09/21/16 Time of Evaluation: 07:48 - Subjective Subjective: The patient is 56 y/o man w/ PMH of HTN, COPD, depression, anxiety asthma, pancreatitis presents to the ED with a complaint of lower back pain. The patient was seen this morning. There are no acute events overnight. The patient is not in acute distress. The patient tolerated the kyphoplasty yesterday. The patient has a small lumbar dressing which is dry, clean, and intact. The patient will be seen by PT today. The patient was voiding s/p procedure. The patient continues to deny alcohol withdrawal symptoms; stable vitals with no tremors, auditory, visual, or tactile hallucinations. The patient denies headaches, dizziness, chest pain, dyspnea, abdominal pain, nausea , vomiting, diarrhea, dysuria, and fevers. Objective - Vital Signs/Intake and Output Vital Signs (last 24 hours): Temp Pulse Resp BP Pulse Ox 98.3 F 93 H 20 121/75 96 09/20/16 22:06 09/20/16 22:06 09/20/16 22:06 09/20/16 22:06 09/20/16 22:06 - Medications Medications: Current Medications Albuterol (Ventolin Hfa 90 Mcg/Actuation (8 G)) 1 puff IH Q6H PRN PRN Reason: Shortness of Breath Last Admin: 09/20/16 08:59 Dose: 1 puff Alendronate Sodium (Fosamax) 70 mg PO QWK [facility] Amlodipine Besylate (Norvasc) 5 mg PO DAILY [facility] Last Admin: 09/20/16 09:00 Dose: Not Given Calcitonin [place] (Miacalcin) 200 iu TAMERA DAILY [facility] Last Admin: 09/20/16 09:01 Dose: 1 spray Chlordiazepoxide (Librium) 25 mg PO Q12 [facility] Last Admin: 09/20/16 21:02 Dose: 25 mg Cholecalciferol (Vitamin D) 2,000 iu PO DAILY [facility] Last Admin: 09/20/16 09:00 Dose: Not Given Doxepin HCl (Sinequan) 10 mg PO HS [facility] Last Admin: 09/20/16 21:25 Dose: 10 mg Enoxaparin Sodium (Lovenox) 40 mg SC DAILY [facility] PRN Reason: Protocol Last Admin: 09/19/16 09:07 Dose: 40 mg Folic Acid (Folic Acid) 1 mg PO DAILY [facility] Last Admin: 09/20/16 09:00 Dose: Not Given Lactated Ringer's (Lactated Ringer's) 1,000 mls @ 100 mls/hr IV .Q10H [facility] Last Admin: 09/21/16 01:38 Dose: Not Given Lidocaine (Lidoderm) 1 ea TD DAILY [facility] Last Admin: 09/20/16 09:00 Dose: Not Given Lorazepam (Ativan) 2 mg IVP Q6 PRN PRN Reason: Symptoms of alcohol withdrawl Nicotine (Nicoderm Cq) 1 patch TD DAILY [facility] Last Admin: 09/20/16 09:00 Dose: Not Given Ondansetron HCl (Zofran Inj) 4 mg IVP Q6 PRN PRN Reason: Nausea/Vomiting Pravastatin Sodium (Pravachol) 10 mg PO DAILY [facility] Last Admin: 09/20/16 09:00 Dose: Not Given Quetiapine Fumarate (Seroquel) 50 mg PO HS [facility] Last Admin: 09/20/16 21:25 Dose: 50 mg Sertraline HCl (Zoloft) 100 mg PO DAILY [facility] Last Admin: 09/20/16 09:00 Dose: Not Given Thiamine HCl (Vitamin B1 Tab) 100 mg PO DAILY [facility] Last Admin: 09/20/16 09:00 Dose: Not Given Tramadol HCl (Ultram) 50 mg PO Q6 [facility] Last Admin: 09/21/16 04:03 Dose: 50 mg - Labs Labs: 09/20/16 05:00 PT 10.4 SECONDS (9.6-11.2) 09/19/16 13:54 INR 1.00 (0.92-1.08) 09/19/16 13:54 - Constitutional Appears: No Acute Distress - Head Exam Head Exam: ATRAUMATIC, NORMOCEPHALIC - ENT Exam ENT Exam: Mucous Membranes Moist - Respiratory Exam Respiratory Exam: Decreased Breath Sounds. absent: Accessory Muscle Use, Chest Wall Tenderness, Prolonged Expiratory Phase, Rales, Rhonchi, Wheezes, Respiratory Distress, Stridor - Cardiovascular Exam Cardiovascular Exam: REGULAR RHYTHM. absent: Tachycardia - GI/Abdominal Exam GI & Abdominal Exam: Soft, Normal Bowel Sounds. absent: Distended, Tenderness Additional comments: obese abdomen - Extremities Exam Extremities Exam: absent: Calf Tenderness, Pedal Edema, Tenderness - Back Exam Additional comments: lumbar dressing clean, dry, and intact - Neurological Exam Neurological Exam: Alert, Awake, Oriented x3 - Skin Skin Exam: Dry, Intact, Normal Color, Warm Assessment and Plan - Assessment and Plan (Free Text) Assessment: The patient is 56 y/o man w/ PMH of HTN, COPD, depression, anxiety asthma, pancreatitis presents to the ED with a complaint of lower back pain Plan: 1. ETOH Withdrawal - vitals remain stable, no tremors, no hallucinations (auditory, visual, tactile ) - ativan 2 mg IV Q6 prn - folic acid 1 mg PO daily - chlodiazepoxide 25 mg PO Q12 - nicotine patch x1 daily - thiamine 100 mg PO daily - zofran IV Q6h prn for nausea - neuro check Qshift - vital signs Qshift - social work referral ordered 2. Acute on chronic back pain - secondary to acute lumbar fracture, unable to specify cause - s/p kyphoplasty 09/20/2016 - Lumbar MRI w/o contrast 09/19/2016: acute/subacute anterior wedge compression fracture L2 segment w/ mild retropulsion of the posterior superior cortex with no evidence of significant canal compromise - Lumbar spine X-ray 09/08/16: compression fracture at level of L2. - Tramadol 50 mg PO Q6h batsheva switched to prn to assess if improvement of pain s/ p kyphoplasty - PT/OT re-ordered s/p kyphoplasty - Lidocaine patch daily - start Alendronate 70 mg PO QWk - Calcitonin 200 IU nasal spray - Vitamin B12: 301 - Vitamin D 2000 IU PO daily - Vitamin D25-OH: 13.5 3. Depression disroder - Sertraline 100 mg PO daily - Quetiapine 50 mg PO HS - Doxepin 10 mg PO HS - held Sertraline 50 mg PO daily 4. HTN - On home meds: Amlodipine 5 mg PO daily and Pravastatin 10 mg PO daily - heart healthy diet 5. COPD - On home meds: albuterol HFA 1 puff IH Q6h prn 6. DVT prophylaxis - lovenox 40 mg SC daily
[2016-09-21 08:18] VITALS: BP 116/76; PULSE 85; TEMP 98
[2016-09-21] MEDS: Calcitonin 200 Int Units/Inh Nasal Spray (3.7 ml) NAS SCH (09:12)
[2016-09-21] MEDS: Lidocaine 5% Patch TD SCH (09:15)
[2016-09-21] MEDS: Enoxaparin 40 mg Syringe SC SCH (09:17)
--- NOTE | 2016-09-21 10:49 | VASCULAR ---
Kyphoplasty Clinical indication: Symptomatic acute L2 vertebral compression fracture. Comparison: Comparison is made to recent MRIs of the lumbar spine from 09/19/2016 and 08/25/2016. Anesthesia: General anesthesia provided by attending anesthesiologist. Procedure and findings: Risks and benefits, alternatives and possible complications of this procedure including but not limited to bleeding, pulmonary embolization, infection, spinal cord compression, radiculopathy, paresthesias, and anesthesia complications were explained and informed consent was obtained. The patient was placed prone on the fluoroscopic table and the back region was prepped and draped in the usual sterile fashion. Continuous physiologic monitoring of the patient's vital signs was performed throughout the procedure. Under direct fluoroscopic guidance cannulas were advanced by a transpedicular approach into the posterior portions of the L2 vertebral body. A drilling device was utilized coaxially through the outer cannula and advanced towards the anterior portion of the L2 vertebral body. Inflation balloons were introduced through the cannulas, [id number] to the anterior portion of the vertebral body and inflated with contrast. The balloons were subsequently deflated and removed. The cavities were then filled with approximately 4 cc of methylmethacrylate cement. Spot films were obtained demonstrating pooling of cement within the cavities. Mild caodaism of the vertebral body height was noted. The cannulas were removed and hemostasis was achieved with manual compression. Steri-Strips and a sterile dressing was applied to the entry sites. The patient tolerated the procedure well and left the radiology suite in stable condition. Conclusion and plan: Successful kyphoplasty of L2 vertebral body as described.
--- NOTE | 2016-09-21 13:55 | CP.PCM.DIS ---
Provider - Provider Date of Admission: 09/17/16 13:19 Attending physician: Cande Palacios MD Time Spent in preparation of Discharge (in minutes): 30 Diagnosis - Discharge Diagnosis (1) Lumbar compression fracture Status: Acute (2) Alcohol withdrawal Status: Acute Hospital Course - Lab Results Lab Results: Most Recent Lab Values WBC 6.6 K/uL (4.8-10.8) 09/20/16 05:00 RBC 4.74 Mil/uL (4.40-5.90) 09/20/16 05:00 Hgb 14.1 g/dL (12.0-18.0) 09/20/16 05:00 Hct 41.5 % (35.0-51.0) 09/20/16 05:00 MCV 87.6 fl (80.0-94.0) 09/20/16 05:00 MCH 29.7 pg (27.0-31.0) 09/20/16 05:00 MCHC 33.9 g/dL (33.0-37.0) 09/20/16 05:00 RDW 15.4 % (11.5-14.5) H 09/20/16 05:00 Plt Count 164 K/uL (130-400) D 09/20/16 05:00 MPV 7.1 fl (7.2-11.7) L 09/16/16 10:10 Neut % (Auto) 66.8 % (50.0-75.0) 09/16/16 10:10 Lymph % (Auto) 25.4 % (20.0-40.0) 09/16/16 10:10 [place] % (Auto) 6.3 % (0.0-10.0) 09/16/16 10:10 Eos % (Auto) 1.0 % (0.0-4.0) 09/16/16 10:10 Baso % (Auto) 0.5 % (0.0-2.0) 09/16/16 10:10 Neut # 7.2 K/uL (1.8-7.0) H 09/16/16 10:10 Lymph # 2.7 K/uL (1.0-4.3) 09/16/16 10:10 [place] # 0.7 K/uL (0.0-0.8) 09/16/16 10:10 Eos # 0.1 K/uL (0.0-0.7) 09/16/16 10:10 Baso # 0.1 K/uL (0.0-0.2) 09/16/16 10:10 PT 10.4 SECONDS (9.6-11.2) 09/19/16 13:54 INR 1.00 (0.92-1.08) 09/19/16 13:54 Sodium 143 mmol/l (132-148) 09/16/16 10:10 Potassium 3.9 MMOL/L (3.6-5.0) 09/16/16 10:10 Chloride 100 mmol/L (98-107) 09/16/16 10:10 Carbon Dioxide 22 mmol/L (22-30) 09/16/16 10:10 Anion Gap 25 (10-20) H 09/16/16 10:10 BUN 15 mg/dl (9-20) 09/16/16 10:10 Creatinine 0.6 mg/dL (0.8-1.5) L 09/16/16 10:10 Est GFR ( Amer) > 60 09/16/16 10:10 Est GFR (Non-Af Amer) > 60 09/16/16 10:10 POC Glucose (mg/dL) 92 mg/dL (65-110) 09/16/16 09:28 Random Glucose 107 mg/dL (75-110) 09/16/16 10:10 Calcium 9.6 mg/dL (8.4-10.2) 09/16/16 10:10 Magnesium 1.6 MG/DL (1.6-2.3) 09/16/16 10:10 Total Bilirubin 0.6 mg/dl (0.2-1.3) 09/16/16 10:10 AST 53 U/L (17-59) 09/16/16 10:10 ALT 43 U/L (21-72) 09/16/16 10:10 Alkaline Phosphatase 160 U/L (38-126) H D 09/16/16 10:10 Total Protein 8.5 G/DL (6.3-8.2) H 09/16/16 10:10 Albumin 4.7 g/dL (3.5-5.0) 09/16/16 10:10 Globulin 3.8 gm/dL (2.2-3.9) 09/16/16 10:10 Albumin/Globulin Ratio 1.2 (1.0-2.1) 09/16/16 10:10 Vitamin B12 301 pg/mL (239-931) 09/20/16 05:00 25-OH Vitamin D Total 13.5 NG/ML (30.0-100.0) L 09/20/16 05:00 Urine Color Yellow (YELLOW) 09/16/16 10:15 Urine Clarity Clear (Clear) 09/16/16 10:15 Urine pH 5.0 (5.0-8.0) 09/16/16 10:15 Ur Specific [place] 1.026 (1.003-1.030) 09/16/16 10:15 Urine Protein 30 mg/dL (NEGATIVE) 09/16/16 10:15 Urine Glucose (UA) 50 mg/dL (Normal) 09/16/16 10:15 Urine Ketones Trace mg/dL (NEGATIVE) 09/16/16 10:15 Urine Blood Negative (NEGATIVE) 09/16/16 10:15 Urine Nitrate Negative (NEGATIVE) 09/16/16 10:15 Urine Bilirubin Negative (NEGATIVE) 09/16/16 10:15 Urine Urobilinogen 0.2-1.0 mg/dL (0.2-1.0) 09/16/16 10:15 Ur Leukocyte Esterase Neg Dylan/uL (Negative) 09/16/16 10:15 Urine RBC (Auto) 1 /hpf (0-3) 09/16/16 10:15 Urine Microscopic WBC 1 /hpf (0-5) 09/16/16 10:15 Hyaline Casts 3-5 /hpf (0-2) H 09/16/16 10:15 Granular Casts (Auto) 1 /lpf (0-1) 09/16/16 10:15 Alcohol, Quantitative 47 mg/dl (0-10) H 09/16/16 10:10 - Hospital Course Hospital Course: The patient is 56 y/o man w/ PMH of HTN, COPD, depression, anxiety asthma, pancreatitis presents to the ED with a complaint of lower back pain. The patient had multiple ED visits regarding back pain with imaging done but was continued to be discharged. Patient returned to ED with same complaint on but 09/16/2016 but was also in alcohol withdrawal. Patient was treated for withdrawal with ativan initially and then started on librium. The patient's thoracolumbar X-ray was reviewed and found to have a compression fracture on the L2 vertebrae. The patient had a repeat lumbar MRI which confirmed the compression fracture. The patient was found to have moderate Vit. D deficiency. The patient had kyphoplasty done 09/20/2016 due to acute nature of fracture. The patient tolerated the procedure well, was seen by physical therapy the next day, and cleared by PT. The patient's alcohol withdrawal has resolved with librium tapered down from Q8 to Q12. The patient will be discharged on librium 25 mg cap PO daily for 4 more days, cholecalciferol 2,000 units tab PO daily, tramadol 50 mg PO Q6h prn for pain, and Albuterol HFA 1 puff IH Q6h prn. The patient will be contacted by radiology as to when to follow up with the radiologist regarding the back procedure. The patient is to follow up with psychiatrist for psych medication. The patient is to follow up with Dr. Tillman at the [facility] for health maintenance. - Date & Time of H&P Date of H&P: 09/16/16 Time of H&P: 14:23 Discharge Exam - Head Exam Head Exam: ATRAUMATIC, NORMOCEPHALIC - Eye Exam Eye Exam: EOMI Pupil Exam: PERRL - ENT Exam ENT Exam: Mucous Membranes Moist - Respiratory Exam Respiratory Exam: Decreased Breath Sounds. absent: Accessory Muscle Use, Chest Wall Tenderness, Prolonged Expiratory Phase, Rales, Rhonchi, Wheezes, Respiratory Distress, Stridor - Cardiovascular Exam Cardiovascular Exam: REGULAR RHYTHM. absent: Tachycardia - GI/Abdominal Exam GI & Abdominal Exam: Normal Bowel Sounds, Soft. absent: Distended, Tenderness Additional comments: obese abdomen - Extremities Exam Extremities exam: normal inspection - Neurological Exam Neurological exam: Alert, Oriented x3 Additional comments: ambulates with walker - Skin Skin Exam: Dry, Intact, Normal Color, Warm Discharge Plan - Discharge Medications Prescriptions: Cholecalciferol (Vitamin D3) [D3 Dots] 2,000 unit PO DAILY #30 tablet Alendronate [Fosamax] 70 mg PO QWK #4 tab chlordiazePOXIDE [Librium] 25 mg PO DAILY #4 cap traMADol [Ultram] 50 mg PO Q6 PRN #20 tab PRN Reason: Pain, Severe (8-10) Albuterol HFA [Ventolin HFA 90 mcg/actuation (8 g)] 1 puff IH Q6H PRN #1 inhaler PRN Reason: Shortness Of Breath - Follow Up Plan Condition: FAIR Disposition: HOME/ ROUTINE Referrals: Eyad Bernstein MD [Staff Provider] - John Mondragon MD [Staff Provider] - [facility] [Outside]
== END 2016-09-21 16:31 | disposition home or self-care (01) | DRG 216 ==
LOC: H.ER 08:04 → H.ERHOLD 10:21 → H.TEL 11:56 → OBSVTOIN 09-17 13:19 → H.MEDSURG1 09-18 23:05
PROVIDERS: ADMIT Family Medicine Geriatric Medicine; ATTEND Family Medicine Geriatric Medicine
PROC: 0QB03ZX Excision of Lumbar Vertebra, Percutaneous Approach, Diagnostic (ICD-10-PCS; 2016-09-20)
PROC: 0QU03JZ Supplement Lumbar Vertebra with Synthetic Substitute, Percutaneous Approach (ICD-10-PCS; 2016-09-20)
PROC: 0QS03ZZ Reposition Lumbar Vertebra, Percutaneous Approach (ICD-10-PCS; principal; 2016-09-20 13:30)
DX: M48.56XA Collapsed vertebra, not elsewhere classified, lumbar region, initial encounter for fracture (principal); F10.231 Alcohol dependence with withdrawal delirium; J44.9 Chronic obstructive pulmonary disease, unspecified; I10 Essential (primary) hypertension; E78.00 Pure hypercholesterolemia, unspecified; Y90.2 Blood alcohol level of 40-59 mg/100 ml; F32.9 Major depressive disorder, single episode, unspecified; E66.9 Obesity, unspecified; Z68.33 Body mass index [BMI] 33.0-33.9, adult; J45.909 Unspecified asthma, uncomplicated; K21.9 Gastro-esophageal reflux disease without esophagitis; M54.31 Sciatica, right side; E55.9 Vitamin D deficiency, unspecified

== ENCOUNTER 2016-09-23 13:48 | Emergency (ER) | payer OTHER ==
[2016-09-23 13:48] VITALS: BMI 33.3
[2016-09-23 13:52] VITALS: TEMP 97.9
--- NOTE | 2016-09-23 15:01 | ED PDOC ---
HPI: Psych/Substance Abuse Time Seen by Provider: 09/23/16 13:54 Chief Complaint (Nursing): Alcohol Ingestion Chief Complaint (Provider): alcohol intoxication History Per: EMS History/Exam Limitations: no limitations Onset/Duration Of Symptoms: Unknown Current Symptoms Are (Timing): Still Present Additional Complaint(s): Ryley Torres is a 56 year old male, with a previous medical history of anemia, anxiety, asthma, bipolar disorder, hypercholesterolemia and hypertension, who presents to the ED via EMS after his friend found him on the bathroom floor. Friend attempted to get the patient up but could not so he proceeded to call 911. Pt reports to drinking 2 litters of Vodka. Pt denies any medical complaints and is requesting to go home. PMD: none provided Past Medical History Reviewed: Historical Data, Nursing Documentation, Vital Signs Vital Signs: Last Vital Signs Temp 97.9 F 09/23/16 13:50 Pulse 97 H 09/23/16 13:50 Resp 18 09/23/16 13:50 BP 117/81 09/23/16 13:50 Pulse Ox 95 09/23/16 13:50 - Medical History PMH: Anemia, Anxiety, Asthma, Bipolar Disorder, COPD, Depression, Gastritis ( secondary to ETOH), GERD, HTN, Hypercholesterolemia, Pancreatitis (secondary to ETOH), Schizophrenia, Seizures (secondary to ETOH withdrawal), Chronic Pain ( low back pain ) Denies: Alzheimer's Disease, Atrial Fibrillation, Bronchitis, Cardia Arrhythmia, CHF, Dementia, Diabetes, Emphysema, Hepatitis, HIV, Migraine, Mitral Valve Prolapse, Multiple Sclerosis, Parkinson's Disease, Peripheral Edema , Pneumonia, Pulmonary Embolism, Chronic Kidney Disease, Sexually Transmitted Disease, Sleep Apnea - Surgical History Surgical History: Denies: Pacemaker - Family History Family History: States: Diabetes - Immunization History Hx Tetanus Toxoid Vaccination: Yes (As per patient, TDaP uptodate ( about 3 years ago)) Hx Influenza Vaccination: No Hx Pneumococcal Vaccination: No - Home Medications Home Medications: Ambulatory Orders Medication Instructions Recorded Folic Acid 1 mg PO DAILY 09/03/16 Gabapentin [Neurontin] 400 mg PO HS 09/03/16 Pravastatin Sodium [Pravachol] 10 mg PO DAILY 09/03/16 QUEtiapine [SEROquel] 50 mg PO HS 09/03/16 Sertraline HCl 50 mg PO DAILY 09/03/16 Thiamine Mononitrate [Vitamin B-1] 100 mg PO DAILY 09/03/16 amLODIPine [Norvasc] 5 mg PO DAILY 09/03/16 Doxepin [Sinequan] 10 mg PO HS 09/16/16 Sertraline [Zoloft] 100 mg PO DAILY 09/16/16 Albuterol HFA [Ventolin HFA 90 1 puff IH Q6H PRN #1 inhaler 09/21/16 mcg/actuation (8 g)] Alendronate [Fosamax] 70 mg PO QWK #4 tab 09/21/16 Cholecalciferol (Vitamin D3) [D3 2,000 unit PO DAILY #30 tablet 09/21/16 Dots] chlordiazePOXIDE [Librium] 25 mg PO DAILY #4 cap 09/21/16 traMADol [Ultram] 50 mg PO Q6 PRN #20 tab 09/21/16 - Allergies Allergies/Adverse Reactions: Allergies Allergy/AdvReac Type Severity Reaction Status Date / Time No Known Allergies Allergy Verified 09/23/16 13:49 Review of Systems ROS Statement: Except As Marked, All Systems Reviewed And Found Negative (no active medical complaints) Physical Exam - Reviewed Nursing Documentation Reviewed: Yes Vital Signs Reviewed: Yes - Physical Exam Appears: Positive for: Well, Non-toxic, No Acute Distress Head Exam: Positive for: ATRAUMATIC, NORMAL INSPECTION, NORMOCEPHALIC Cardiovascular/Chest: Positive for: Regular Rate, Rhythm Respiratory: Positive for: CNT, Normal Breath Sounds Neurologic/Psych: Positive for: Alert, Oriented, Mood/Affect (aggitated), Gait ( unsteady ), Other (slurred speach ) - ECG O2 Sat by Pulse Oximetry: 95 (RA) Pulse Ox Interpretation: Normal - Progress ED Course And Treament: Pt was told he would be given medication to aid him in falling sleep and then he would be able to go home. Pt continued to attempt to elope and required to be restrained at 14:45. Medical Decision Making Medical Decision Making: Initial Impression: Intoxication Initial Plan: * ativan * 1:1 observation * restraints * reevaluation PT monitored in ER. 2049 - Clear speech and steady gait. Scribe Attestation: Documented by Sandra Kat, acting as a scribe for Elizabeth Carlos PA-C. Provider Scribe Attestation: All medical record entries made by the Scribe were at my direction and personally dictated by me. I have reviewed the chart and agree that the record accurately reflects my personal performance of the history, physical exam, medical decision making, and the department course for this patient. I have also personally directed, reviewed, and agree with the discharge instructions and disposition. ED OBSERVATION Date of observation admission: 09/23/16 Time of observation admission: 15:09 - Observation admission statement Patient is being placed in observation because:: alcohol intoxication - Goals of Observation Goals of observation are:: clinical sobriety Disposition - Clinical Impression Clinical Impression: Alcohol abuse with intoxication - Patient ED Disposition Is Patient to be Admitted: No - Disposition Referrals: [facility] [Outside] Disposition: Routine/Home Disposition Time: 20:52 Condition: GOOD Instructions: Alcohol Intoxication (ED)
[2016-09-23 16:26] VITALS: BP 128/82; PULSE 88; RESP 20
[2016-09-23 20:53] VITALS: O2SAT 95
== END 2016-09-23 21:05 | disposition home or self-care (01) ==
LOC: H.ER 13:48
DX: F10.129 Alcohol abuse with intoxication, unspecified (principal)

== ENCOUNTER 2016-09-30 16:01 | Inpatient (IN) | payer MEDICAID, OTHER ==
[2016-09-30 16:02] VITALS: BMI 33.3
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
[2016-09-30] MEDS ORDERED: Sodium Chloride 0.9% 1,000 ML IV STA (16:46)
[2016-09-30 16:56] LABS: BASO # 0.1 K/uL (0.0-0.2); BASO % 1.3 % (0.0-2.0); EOS # 0.2 K/uL (0.0-0.7); EOS % 2.2 % (0.0-4.0); HEMATOCRIT 46.7 % (35.0-51.0); LYMPH # 5.3 K/uL (1.0-4.3); LYMPH % 48.2 % (20.0-40.0); MEAN CORPUSCULAR HEMOGLOBIN 29.6 pg (27.0-31.0); MONO # 0.5 K/uL (0.0-0.8); NEUT # 4.7 K/uL (1.8-7.0); NEUT % 43.3 % (50.0-75.0); NRBC % 0.2 % (0.0-0.0); RED CELL DISTRIBUTION WIDTH 15.3 % (11.5-14.5); WHITE BLOOD COUNT 10.9 K/uL (4.8-10.8)
[2016-09-30 17:07] LABS: ALCOHOL SERUM 281 mg/dl (0-10); ALKALINE PHOSPHATASE 254 U/L (38-126); ALT/SGPT 63 U/L (21-72); AST/SGOT 65 U/L (17-59); BILIRUBIN,TOTAL 0.4 mg/dl (0.2-1.3); BLOOD UREA NITROGEN 11 mg/dl (9-20); CALCIUM 9.6 mg/dL (8.4-10.2); CARBON DIOXIDE 19 mmol/L (22-30); CHLORIDE 107 mmol/L (98-107); GFR AFRICAN-AMERICAN > 60; GLUCOSE,RANDOM 110 mg/dL (75-110); POTASSIUM 3.8 MMOL/L (3.6-5.0); SODIUM 145 mmol/l (132-148); TOTAL PROTEIN 8.6 G/DL (6.3-8.2)
[2016-09-30 17:08] LABS: ALB/GLOB RATIO 1.2 (1.0-2.1)
--- NOTE | 2016-09-30 19:24 | ED PDOC ---
- Laboratory Results Result Diagrams: 09/30/16 16:50 09/30/16 16:50 - ECG O2 Sat by Pulse Oximetry: 98 Medical Decision Making Medical Decision Makin:00 Patient signed over to me by Dr. Eckert pending clinical sobriety and crisis evaluation. Vital signs are stable. Labs reviewed. In my opinion there are no current acute medical conditions that contraindicate the placement of this patient in a psychiatric unit. Disposition Doctor Will See Patient In The: Office Counseled Patient/Family Regarding: Studies Performed, Diagnosis, Need For Followup - Clinical Impression Clinical Impression: Alcohol intoxication, Depression - POA Present On Arrival: None - Disposition Disposition: Routine/Home Disposition Time: 02:00 Condition: FAIR
[2016-10-01 02:31] VITALS: O2SAT 98
[2016-10-01] MEDS ORDERED: Magnesium Hydroxide Susp 30 ml UD PO PRN (04:08)
[2016-10-01] MEDS ORDERED: DiphenhydrAMINE 50 mg/ml Inj IM PRN (04:08)
[2016-10-01] MEDS ORDERED: Albuterol HFA 90 mcg/actuation (8 g) IH PRN (05:26)
[2016-10-01] MEDS ORDERED: ALENDRONATE 70 MG TAB PO SCH (05:30)
[2016-10-01] MEDS: Enoxaparin 40 mg Syringe SC SCH (08:51)
[2016-10-01] MEDS ORDERED: THIAMINE MONONITRATE 100 MG PO SCH (09:00)
[2016-10-01] MEDS ORDERED: CHOLECALCIFEROL 2000 UNIT PO SCH (09:00)
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
[2016-10-01] MEDS: Lidocaine 5% Patch TD SCH (12:07)
[2016-10-02] MEDS: Lidocaine 5% Patch TD SCH (09:13)
[2016-10-02] MEDS: Enoxaparin 40 mg Syringe SC SCH (09:14)
--- NOTE | 2016-10-02 14:35 | PCM.PYCHPN ---
Psychiatric Progress Note - Psychiatric Progress Note Patient seen today, length of contact: discussed with team Patient Chief Complaint: i m ok Problems Identified/Issues Discussed: pt states he feels bored on [facility]. he is seen by pt and not eligible for i npt treatment. denies a/v hallucinations. less irritable Medication Change: No Medical Record Reviewed: Yes Mental Status Examination - Cognitive Function Orientation: Person, Place, Situation, Time Memory: Intact Attention: WNL Concentration: WNL Association: WNL - Mood Mood: Depressed - Affect Affect: Constricted, Depressed - Speech Speech: Appropriate - Formal Thought Process Formal Thought Process: No Impairment Psychotic Thoughts and Behaviors: denies any a/v hallucinations - Suicidal Ideation Suicidal Ideation: No - Homicidal Ideation Homicidal Ideation: Yes Goal/Treatment Plan - Goal/Treatment Plan Need for Continued Stay: Remain at risks for inpatient hospitalization, Discharge may exacerbated symptoms Progress Toward Problem(s) and Goals/Treatment Plan: alcohol dependence mdd recurrent severe will continue current treatment start to taper off ativan tomorrow disposition planning Estimated Date of D/C: 10/06/16
[2016-10-03 07:22] LABS: BASO # 0.1 K/uL (0.0-0.2); BASO % 1.7 % (0.0-2.0); EOS # 0.2 K/uL (0.0-0.7); EOS % 2.8 % (0.0-4.0); HEMATOCRIT 41.2 % (35.0-51.0); LYMPH # 2.5 K/uL (1.0-4.3); LYMPH % 43.2 % (20.0-40.0); MEAN CELL VOLUME 87.3 fl (80.0-94.0); MEAN CORPUSCULAR HEMOGLOBIN 29.8 pg (27.0-31.0); MEAN CORPUSCULAR HGB CONC 34.2 g/dL (33.0-37.0); MEAN PLATELET VOLUME 7.4 fl (7.2-11.7); MONO # 0.4 K/uL (0.0-0.8); MONO % 6.6 % (0.0-10.0); NEUT # 2.7 K/uL (1.8-7.0); NEUT % 45.7 % (50.0-75.0); NRBC % 0.1 % (0.0-0.0); RED CELL DISTRIBUTION WIDTH 15.4 % (11.5-14.5); WHITE BLOOD COUNT 5.9 K/uL (4.8-10.8)
[2016-10-03] MEDS: Enoxaparin 40 mg Syringe SC SCH (09:02)
[2016-10-03] MEDS: Lidocaine 5% Patch TD SCH (09:03)
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
[2016-10-03 15:45] VITALS: RESP 20
--- NOTE | 2016-10-03 16:21 | CP.PCM.PN ---
Subjective - Date & Time of Evaluation Date of Evaluation: 10/03/16 Time of Evaluation: 08:00 - Subjective Subjective: This is a 56 yo M with PMH of HTN, COPD, depression, ETOH abuse, and hx of recurrent pancreatitis admitted to [facility] for depression and etoh abuse. Medicine consult for HTN. Patient still reporting intermittent lower back pain, moving to his upper back , no moving to his lower extremities.Patient has a hx of acute L2 compression fracture s/p kyphoplasty 1.5 weeks ago. Denies weakness, numbness or tingling sensation of lower extremities at this evaluation. Patient had an uneventful night. Denies any other complains. Objective - Vital Signs/Intake and Output Vital Signs (last 24 hours): Temp Pulse Resp BP Pulse Ox 97.1 F L 98 H 20 132/93 H 98 10/03/16 15:44 10/03/16 15:44 10/03/16 15:44 10/03/16 15:44 10/01/16 19:57 - Medications Medications: Current Medications Albuterol (Ventolin Hfa 90 Mcg/Actuation (8 G)) 1 puff IH Q6H PRN PRN Reason: Shortness of Breath Alendronate Sodium (Fosamax) 70 mg PO QWK [facility] Last Admin: 10/02/16 09:10 Dose: 70 mg Amlodipine Besylate (Norvasc) 5 mg PO DAILY [facility] Last Admin: 10/03/16 09:14 Dose: 5 mg Cholecalciferol (Vitamin D) 2,000 iu PO DAILY [facility] Last Admin: 10/03/16 09:15 Dose: 2,000 iu Diphenhydramine HCl (Benadryl) 50 mg IM Q6 PRN PRN Reason: Extrapyramidal S/S Unable PO Diphenhydramine HCl (Benadryl) 50 mg PO Q6 PRN PRN Reason: Extrapyramidal Symptoms Diphenhydramine HCl (Benadryl) 50 mg PO HS PRN PRN Reason: Sleep Doxepin HCl (Sinequan) 10 mg PO HS [facility] Last Admin: 10/02/16 21:16 Dose: 10 mg Enoxaparin Sodium (Lovenox) 40 mg SC DAILY [facility] PRN Reason: Protocol Last Admin: 10/03/16 09:02 Dose: 40 mg Famotidine (Pepcid) 20 mg PO DAILY [facility] Last Admin: 10/03/16 09:15 Dose: 20 mg Folic Acid (Folic Acid) 1 mg PO DAILY [facility] Last Admin: 10/03/16 09:14 Dose: 1 mg Gabapentin (Neurontin) 400 mg PO HS [facility] Last Admin: 10/02/16 21:16 Dose: 400 mg Haloperidol (Haldol) 5 mg PO Q4 PRN PRN Reason: Agitation Haloperidol Lactate (Haldol) 5 mg IM Q4 PRN PRN Reason: Agitation, Unable to Take PO Lidocaine (Lidoderm) 1 ea TD DAILY [facility] Last Admin: 10/03/16 09:03 Dose: 1 ea Lorazepam (Ativan) 2 mg IM Q4 PRN PRN Reason: Anxiety/Agitation,Unable PO Lorazepam (Ativan) 2 mg PO Q4 PRN PRN Reason: Anxiety/Agitation Last Admin: 10/01/16 08:24 Dose: 2 mg Lorazepam (Ativan) 0.5 mg PO Q12 [facility] Magnesium Hydroxide (Milk Of Magnesia) 30 ml PO HS PRN PRN Reason: Constipation Nicotine (Nicoderm Cq) 1 patch TD DAILY [facility] Last Admin: 10/03/16 09:04 Dose: 1 patch Pravastatin Sodium (Pravachol) 10 mg PO DAILY [facility] Last Admin: 10/03/16 09:14 Dose: 10 mg Quetiapine Fumarate (Seroquel) 50 mg PO HS [facility] Last Admin: 10/02/16 21:16 Dose: 50 mg Sertraline HCl (Zoloft) 100 mg PO DAILY [facility] Last Admin: 10/03/16 09:14 Dose: 100 mg Thiamine HCl (Vitamin B1 Tab) 100 mg PO DAILY [facility] Last Admin: 10/03/16 09:14 Dose: 100 mg Tramadol HCl (Ultram) 50 mg PO Q6 PRN PRN Reason: Pain, severe (8-10) Last Admin: 10/03/16 09:12 Dose: 50 mg - Labs Labs: 10/03/16 06:39 09/30/16 16:50 - Constitutional Appears: Non-toxic, No Acute Distress - Eye Exam Eye Exam: Normal appearance - ENT Exam ENT Exam: Mucous Membranes Moist - Respiratory Exam Respiratory Exam: Clear to Ausculation Bilateral, NORMAL BREATHING PATTERN - Cardiovascular Exam Cardiovascular Exam: REGULAR RHYTHM, +S1, +S2 - GI/Abdominal Exam GI & Abdominal Exam: Soft, Normal Bowel Sounds. absent: Distended, Tenderness - Extremities Exam Extremities Exam: Normal Inspection. absent: Calf Tenderness, Pedal Edema - Back Exam Additional comments: 2 small kyphoplasty scars noted in lumbar region; well healed - Neurological Exam Neurological Exam: Alert, Awake, Oriented x3 - Psychiatric Exam Psychiatric exam: Normal Affect, Normal Mood - Skin Skin Exam: Dry, Intact, Normal Color Assessment and Plan - Assessment and Plan (Free Text) Assessment: 56 yo male w/ h/o schizoaffective disorder and alcohol abuse, admitted to Psych unit with homicidal ideations in the context of alcohol use/intoxication. Plan: 1. HTN -BP stable on 140s/80s -c/w amlodipine 5mg daily - monitor BP - consider increaseing to 10mg daily if uncontrolled - heart healthy diet 2. Hyperlipidemia - c/w statin therapy 3. Hx of L2 compression fracture (atraumatic), s/p kyphoplasty on 09/20/16 - lidocaine 5% patch - ultram q6 prn pain - fosamax qweek - vitamin D 2000IU daily 4. ETOH abuse/depression - management per psych 5. DVT prophylaxis - ambulating, no previous history of DVT or/and Thrombophilia
[2016-10-04 06:10] VITALS: PULSE 89; TEMP 97.3
[2016-10-04] MEDS: Lidocaine 5% Patch TD SCH (08:37)
[2016-10-04 08:42] VITALS: BP 126/92
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
== END 2016-10-04 10:40 | disposition home or self-care (01) | DRG 430 ==
LOC: H.ER 16:01 → INTOOBSV 16:47 → H.EROBSV 16:47 → UNDOADMOB 16:47 → OBSVTOIN 16:47 → H.EROBSV 10-01 04:05 → H.STEP 10-01 04:05 → OBSVTOIN 10-01 16:47 → H.EROBSV 10-01 16:47 → H.STEP 10-01 16:47 → UNDODISIN 10-04 10:40
PROVIDERS: ADMIT Psychiatry & Neurology Psychiatry; ATTEND Psychiatry & Neurology Psychiatry
PROC: GZHZZZZ Group Psychotherapy (ICD-10-PCS; principal; 2016-10-01)
PROC: GZ56ZZZ Individual Psychotherapy, Supportive (ICD-10-PCS; 2016-10-01)
DX: F25.9 Schizoaffective disorder, unspecified (principal); R45.850 Homicidal ideations; I10 Essential (primary) hypertension; J44.9 Chronic obstructive pulmonary disease, unspecified; F10.929 Alcohol use, unspecified with intoxication, unspecified; Y90.8 Blood alcohol level of 240 mg/100 ml or more; E78.5 Hyperlipidemia, unspecified; G89.29 Other chronic pain; E78.00 Pure hypercholesterolemia, unspecified; K21.9 Gastro-esophageal reflux disease without esophagitis; J45.909 Unspecified asthma, uncomplicated

== ENCOUNTER 2016-10-06 17:25 | Inpatient (IN) | payer MEDICAID, OTHER ==
[2016-10-06 17:25] VITALS: BMI 33.3
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
--- NOTE | 2016-10-07 00:46 | ED PDOC ---
- Laboratory Results Result Diagrams: 10/07/16 02:57 10/07/16 02:57 - ECG O2 Sat by Pulse Oximetry: 98 Medical Decision Making Medical Decision Making: Patient s/o from Dr. Escalante at 0000 pending crisis eval. 0250: Patient evaluated by crisis and will be admitted for further treatment and stabilization of depression. Dx: depression condition: fair Patient medically stable for psychiatric admission Scribe Attestation: Documented by Mary Carmen Castillo acting as a scribe for Alejandro Barrera MD. Provider Scribe Attestation: All medical record entries made by the Scribe were at my direction and personally dictated by me. I have reviewed the chart and agree that the record accurately reflects my personal performance of the history, physical exam, medical decision making, and the department course for this patient. I have also personally directed, reviewed, and agree with the discharge instructions and disposition. Disposition - Clinical Impression Clinical Impression: Depression - POA Present On Arrival: None - Disposition Disposition: Admitted as In-Patient Disposition Time: 17:30 Condition: FAIR
[2016-10-07 02:59] LABS: BASO # 0.1 K/uL (0.0-0.2); BASO % 1.7 % (0.0-2.0); EOS # 0.3 K/uL (0.0-0.7); EOS % 3.4 % (0.0-4.0); HEMATOCRIT 46.3 % (35.0-51.0); LYMPH # 4.8 K/uL (1.0-4.3); MEAN CELL VOLUME 87.2 fl (80.0-94.0); MEAN CORPUSCULAR HGB CONC 34.4 g/dL (33.0-37.0); MEAN PLATELET VOLUME 7.3 fl (7.2-11.7); MONO # 0.4 K/uL (0.0-0.8); MONO % 5.2 % (0.0-10.0); NEUT # 2.9 K/uL (1.8-7.0); NEUT % 33.7 % (50.0-75.0); NRBC % 0.3 % (0.0-0.0); RED CELL DISTRIBUTION WIDTH 15.8 % (11.5-14.5); WHITE BLOOD COUNT 8.6 K/uL (4.8-10.8)
[2016-10-07 03:09] LABS: CHLORIDE 104 mmol/L (98-107); SODIUM 140 mmol/l (132-148)
[2016-10-07 03:12] LABS: ALB/GLOB RATIO 1.2 (1.0-2.1); ALKALINE PHOSPHATASE 196 U/L (38-126); ALT/SGPT 55 U/L (21-72); AST/SGOT 40 U/L (17-59); BILIRUBIN,TOTAL 0.4 mg/dl (0.2-1.3); BLOOD UREA NITROGEN 18 mg/dl (9-20); CARBON DIOXIDE 22 mmol/L (22-30); GFR AFRICAN-AMERICAN > 60; GLUCOSE,RANDOM 106 mg/dL (75-110); TOTAL PROTEIN 8.1 G/DL (6.3-8.2)
[2016-10-07] MEDS ORDERED: Magnesium Hydroxide Susp 30 ml UD PO PRN (04:47)
[2016-10-07] MEDS ORDERED: DiphenhydrAMINE 50 mg/ml Inj IM PRN (04:47)
[2016-10-07] MEDS ORDERED: Albuterol HFA 90 mcg/actuation (8 g) IH PRN (08:38)
[2016-10-07] MEDS ORDERED: ALENDRONATE 70 MG TAB PO SCH (08:45)
--- NOTE | 2016-10-07 08:52 | CARD ---
APPROVED REPORT EKG Measurement Heart [id number] <Conclusion> Normal sinus rhythm Left axis deviation Pulmonary disease pattern Abnormal ECG
[2016-10-07] MEDS: Lidocaine 5% Patch TD SCH (09:51)
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
--- NOTE | 2016-10-07 13:17 | PCM.PSYCH ---
Initial Psychiatric Evaluation - Initial Psychiatric Evaluation Type of Admission: Voluntary Legal Status: Capacity Chief Complaint (in patient's own words): i broke my mirror Patient's Reaction to Hospitalization: cooperative History of Present Illness and Precipitating Events: pt was discharged from [facility] earlier in the week. pt started consuming alcohol again. pt broke property in his room at the [facility] and a neighbor called with concerns. pt reports he is depressed, hopeless and feeling ill. he vomited during the assessment. he is now agreeing to be referred for alcohol treatment. he reports suicidal thoughts, depressed mood, voices at night. reports feeling hopeless, helpless. denies manic symptoms. pt has few supports. Current Medications: Active Medications Generic Name Dose Route Start Last Admin Trade Name Freq PRN Reason Stop Dose Admin Acetaminophen 650 mg 10/07/16 04:47 Tylenol 325mg Tab PO Q4 PRN Pain, moderate (4-7) Al Hydrox/Mg Hydrox/Simethicone 30 ml 10/07/16 04:47 Maalox Plus 30 Ml PO Q4 PRN Dyspepsia Albuterol 1 puff 10/07/16 08:38 Ventolin Hfa 90 Mcg/Actuation (8 G) IH Q6H PRN Shortness of Breath Alendronate Sodium 70 mg 10/07/16 08:45 10/07/16 09:51 Fosamax PO 70 mg QWK CHARLINE Administration Amlodipine Besylate 5 mg 10/07/16 09:00 10/07/16 09:51 Norvasc PO 5 mg DAILY CHARLINE Administration Diphenhydramine HCl 50 mg 10/07/16 04:47 Benadryl IM Q6 PRN Extrapyramidal S/S Unable PO Diphenhydramine HCl 50 mg 10/07/16 04:47 Benadryl PO Q6 PRN Extrapyramidal Symptoms Doxepin HCl 10 mg 10/07/16 22:00 Sinequan PO HS CHARLINE Folic Acid 1 mg 10/07/16 09:00 10/07/16 09:50 Folic Acid PO 1 mg DAILY CHARLINE Administration Gabapentin 400 mg 10/07/16 22:00 Neurontin PO HS CHARLINE Haloperidol 5 mg 10/07/16 04:47 Haldol PO Q4 PRN Agitation Haloperidol Lactate 5 mg 10/07/16 04:47 Haldol IM Q4 PRN Agitation, Unable to Take PO Lidocaine 1 ea 10/07/16 09:00 10/07/16 09:51 Lidoderm TD 1 ea DAILY CHARLINE Administration Lorazepam 2 mg 10/07/16 04:47 Ativan IM Q4 PRN Anxiety/Agitation,Unable PO Lorazepam 1 mg 10/07/16 04:47 Ativan PO Q6 PRN Anxiety/Agitation Magnesium Hydroxide 30 ml 10/07/16 04:47 Milk Of Magnesia PO HS PRN Constipation Pravastatin Sodium 10 mg 10/07/16 09:00 10/07/16 09:51 Pravachol PO 10 mg DAILY CHARLINE Administration Quetiapine Fumarate 50 mg 10/07/16 22:00 Seroquel PO HS CHARLINE Sertraline HCl 100 mg 10/08/16 09:00 Zoloft PO DAILY CHARLINE Thiamine HCl 100 mg 10/07/16 09:00 10/07/16 09:50 Vitamin B1 Tab PO 100 mg DAILY CHARLINE Administration Past Psychiatric History - Past Psychiatric History Previous Treatment History: Inpatient At [facility]: [facility] Date: 10/04/16 History of Abuse: denies History of ETOH/Drug Use: drinks alcohol daily, smokes cigarettes. denies other substance use History of Family Illness: denies Pertinent Medical Hx (Current Medical&Sleep Prob, Allergies): Allergies Allergy/AdvReac Type Severity Reaction Status Date / Time No Known Allergies Allergy Verified 09/23/16 13:49 Folic Acid 1 mg PO DAILY 09/03/16 Gabapentin [Neurontin] 400 mg PO HS 09/03/16 Pravastatin Sodium [Pravachol] 10 mg PO DAILY 09/03/16 QUEtiapine [SEROquel] 50 mg PO HS 09/03/16 amLODIPine [Norvasc] 5 mg PO DAILY 09/03/16 Sertraline [Zoloft] 100 mg PO DAILY 09/16/16 Albuterol HFA [Ventolin HFA 90 mcg/actuation (8 g)] 1 puff IH Q6H PRN #1 inhaler 09/21/16 Alendronate [Fosamax] 70 mg PO QWK #4 tab 09/21/16 Cholecalciferol [Vitamin D 1000 IU] 2,000 iu PO DAILY tab 10/04/16 Doxepin [Sinequan] 10 mg PO HS #30 10/04/16 LORazepam [Ativan] 0.5 mg PO Q12 tab 10/04/16 Thiamine [Vitamin B1 Tab] 100 mg PO DAILY tab 10/04/16 traMADol [Ultram] 50 mg PO Q6 PRN #20 tab 10/04/16 pt with back pain/injury s/p proceedure. pt with history of pancreatitis. Review of Systems - Psychiatric Psychiatric: As Per HPI, Abnormal Sleep Pattern, Anhedonia, Auditory Hallucinations, Behavioral Changes, Depression, Hopelessness, Irritability, Suicidal Ideation Mental Status Examination - Personal Presentation Personal Presentation: Looks stated age - Affect Affect: Depressed - Motor Activity Motor Activity: Calm - Reliability in Providing Information Reliability in Providing Information: Fair - Speech Speech: Organized - Mood Mood: Depressed - Formal Thought Process Formal Thought Process: Hallucinations (denies currently) - Obsessions/Compulsions Obsessions: No Compulsions: No - Cognitive Functions Orientation: Person, Place, Situation, Time Sensorium: Alert Attention/Concentration: Attentive Abstract Thinking: [place] Estimate of Intelligence: Average Judgement: Intact, as evidence by: Insight regarding need for hospitalization Memory: Recent intact, as evidence by: Ability to recall events of the day - Risk Risk: Suicidal (denies any plan/intent currently. feels safe here), Withdrawal ( on ativan to detox), Diminished functioning - Strength & Assets Inventory Strength & Assets Inventory: Intelligence, Employment history - Limitations Limitations: Living alone DSM 5 DX - DSM 5 DSM 5 Diagnosis: alcohol dependence major depression recurrent moderate - Recommended/Plan of Treatment Treatment Recommendations and Plan of Treatment: admit to [facility] for safety and observation gather collateral information provide supportive therapy adjust medications- restart meds, ativan detox hospitalist consult disposition planing- refer to in substance abuse treatment Projected ELOS: 7-10 days Prognosis: fair - Smoking Cessation Smoking Cessation Initiated: No Reason for not providing: declines
[2016-10-08 09:00] LABS: ALB/GLOB RATIO 1.2 (1.0-2.1); ALKALINE PHOSPHATASE 195 U/L (38-126); ALT/SGPT 70 U/L (21-72); AST/SGOT 69 U/L (17-59); BILIRUBIN,TOTAL 1.4 mg/dl (0.2-1.3); BLOOD UREA NITROGEN 9 mg/dl (9-20); CARBON DIOXIDE 27 mmol/L (22-30); CHLORIDE 99 mmol/L (98-107); CHOLESTEROL 234 mg/dL (0-199); GFR AFRICAN-AMERICAN > 60; GLUCOSE,RANDOM 118 mg/dL (75-110); LIPASE 292 U/L (23-300); POTASSIUM 3.3 MMOL/L (3.6-5.0); SODIUM 141 mmol/l (132-148); TOTAL PROTEIN 8.4 G/DL (6.3-8.2)
[2016-10-08] MEDS: Lidocaine 5% Patch TD SCH (09:01)
--- NOTE | 2016-10-08 09:36 | PCM.PYCHPN ---
Psychiatric Progress Note - Psychiatric Progress Note Patient seen today, length of contact: pt seen and evaluate Patient Chief Complaint: pt is still depressed and anxious and reports decrease in withdrawls Problems Identified/Issues Discussed: admitted for depression,suicidal ideation, and alcohol abuse Medical Record Reviewed: Yes Mental Status Examination - Cognitive Function Orientation: Person, Place, Situation, Time Attention: WNL Concentration: WNL Association: WNL Fund of Knowledge: WNL - Mood Mood: Depressed - Affect Affect: Constricted, Depressed - Speech Speech: Appropriate - Formal Thought Process Formal Thought Process: Hallucinations (denies currently) - Suicidal Ideation Suicidal Ideation: No - Homicidal Ideation Homicidal Ideation: No Goal/Treatment Plan - Goal/Treatment Plan Progress Toward Problem(s) and Goals/Treatment Plan: omaira continue the alcohol proticol and adjust zoloft to stabilize the depresion.
[2016-10-08] MEDS ORDERED: Potassium Chloride 20 mEq ER Tab PO ONE (11:11)
--- NOTE | 2016-10-08 16:40 | CP.PCM.PN ---
Subjective - Date & Time of Evaluation Date of Evaluation: 10/08/16 Time of Evaluation: 07:55 - Subjective Subjective: 56 yo male w/ h/o schizoaffective disorder and alcohol abuse, admitted to Psych unit for crisis evaluation, further treatment and stabilization of depression. Patient being followed due to blood pressure, chronic back pain, h/o of pancreatitis with recent complains of abdominal pain, nausea, and vomiting during current admission. Today patient was seen and examined at bedside this morning. patient denies nausea, vomiting, abdominal pain at this evaluation, tolerating PO, but still complaining of intermittent chronic lower back pain,, radiating to his upper back, alleviated with PO pain medications and topical lidoderm patch, and no associated to tingling, numbness or weakness of lower extremities. Objective - Vital Signs/Intake and Output Vital Signs (last 24 hours): Temp Pulse Resp BP Pulse Ox 97.5 F L 93 H 18 140/86 99 10/08/16 09:00 10/08/16 09:00 10/08/16 09:00 10/08/16 09:00 10/07/16 16:38 - Medications Medications: Current Medications Acetaminophen (Tylenol 325mg Tab) 650 mg PO Q4 PRN PRN Reason: Pain, moderate (4-7) Last Admin: 10/07/16 13:28 Dose: 650 mg Al Hydrox/Mg Hydrox/Simethicone (Maalox Plus 30 Ml) 30 ml PO Q4 PRN PRN Reason: Dyspepsia Albuterol (Ventolin Hfa 90 Mcg/Actuation (8 G)) 1 puff IH Q6H PRN PRN Reason: Shortness of Breath Alendronate Sodium (Fosamax) 70 mg PO QWK [facility] Last Admin: 10/07/16 09:51 Dose: 70 mg Amlodipine Besylate (Norvasc) 10 mg PO DAILY [facility] Aspirin (Aspirin Chewable) 81 mg PO DAILY [facility] Atorvastatin Calcium (Lipitor) 20 mg PO DAILY [facility] Diphenhydramine HCl (Benadryl) 50 mg IM Q6 PRN PRN Reason: Extrapyramidal S/S Unable PO Diphenhydramine HCl (Benadryl) 50 mg PO Q6 PRN PRN Reason: Extrapyramidal Symptoms Doxepin HCl (Sinequan) 10 mg PO HS [facility] Last Admin: 10/07/16 21:11 Dose: 10 mg Folic Acid (Folic Acid) 1 mg PO DAILY [facility] Last Admin: 10/08/16 08:59 Dose: 1 mg Gabapentin (Neurontin) 400 mg PO HS [facility] Last Admin: 10/07/16 21:11 Dose: 400 mg Haloperidol (Haldol) 5 mg PO Q4 PRN PRN Reason: Agitation Haloperidol Lactate (Haldol) 5 mg IM Q4 PRN PRN Reason: Agitation, Unable to Take PO Lidocaine (Lidoderm) 1 ea TD DAILY [facility] Last Admin: 10/08/16 09:01 Dose: 1 ea Lorazepam (Ativan) 2 mg IM Q4 PRN PRN Reason: Anxiety/Agitation,Unable PO Lorazepam (Ativan) 1 mg PO Q6 PRN PRN Reason: Anxiety/Agitation Lorazepam (Ativan) 1 mg PO TID [facility] Last Admin: 10/08/16 12:29 Dose: 1 mg Magnesium Hydroxide (Milk Of Magnesia) 30 ml PO HS PRN PRN Reason: Constipation Quetiapine Fumarate (Seroquel) 50 mg PO [facility] Last Admin: 10/07/16 21:11 Dose: 50 mg Sertraline HCl (Zoloft) 100 mg PO DAILY [facility] Last Admin: 10/08/16 08:59 Dose: 100 mg Thiamine HCl (Vitamin B1 Tab) 100 mg PO DAILY [facility] Last Admin: 10/08/16 09:00 Dose: 100 mg Tramadol HCl (Ultram) 50 mg PO Q6 PRN PRN Reason: Pain, severe (8-10) Last Admin: 10/08/16 12:53 Dose: 50 mg - Labs Labs: 10/07/16 02:57 10/08/16 08:00 - Constitutional Appears: Non-toxic, No Acute Distress - Head Exam Head Exam: NORMAL INSPECTION - Eye Exam Eye Exam: Normal appearance - ENT Exam ENT Exam: Mucous Membranes Moist - Respiratory Exam Respiratory Exam: Clear to Ausculation Bilateral, NORMAL BREATHING PATTERN - Cardiovascular Exam Cardiovascular Exam: REGULAR RHYTHM, +S1, +S2 - GI/Abdominal Exam GI & Abdominal Exam: Soft, Normal Bowel Sounds. absent: Distended, Tenderness - Extremities Exam Extremities Exam: Normal Inspection. absent: Calf Tenderness, Pedal Edema - Neurological Exam Neurological Exam: Alert, Awake, Oriented x3 - Skin Skin Exam: Dry, Intact, Normal Color Assessment and Plan - Assessment and Plan (Free Text) Assessment: 56 yo male w/ h/o schizoaffective disorder and alcohol abuse, admitted to Psych unit for crisis evaluation, further treatment and stabilization of depression. Plan: 1. Essential Hypertension -BP monitor: systolic in 140s-150s. Continue BP monitor -increase Amlodipine dose from 5 mg to 10 mg daily -heart healthy diet -Monitor for amlodipine related side effects 2. Hypokalemia -CMP on 10/08/16 showed K+ 3.3, but patient asymptomatic -Replace potassium with 40 MQE PO once -F/U BMP and magnesium on 10/09/16 3. h/o Pancreatitis -Asymptomatic this morning, and tolerating PO - Lipase WNL/292 -Alkaline phosphatase persistently elevated. F/U abdominal ultrasound results. 4. Hyperlipidemia -Lipid profile on 10/08/16 showed Total cholesterol on 234, Tri -Stop Pravastatin 10 mg PO -CVD risk was 15.6 % -Start Atorvastatin 20 mg PO daily -LFTs: ALT/AST: 70/69, mildly elevated AST most likely due to h/o etoh abuse 5. Hx of L2 compression fracture (atraumatic), s/p kyphoplasty on 09/20/16 - Lidocaine 5% patch daily - c/w home Gabapentin 400 mg PO HS - c/w fosamax PO weekly - vitamin D 2000 IU daily 6. ETOH abuse/depression - management per psych -no S/S of withdrawal 7. DVT prophylaxis - ambulating, no previous history of DVT or/and Thrombophilia 8 H/O Asthma -c/w home Albuterol HFA PRN
[2016-10-09 08:29] LABS: BLOOD UREA NITROGEN 7 mg/dl (9-20); CALCIUM 9.9 mg/dL (8.4-10.2); CARBON DIOXIDE 27 mmol/L (22-30); CHLORIDE 100 mmol/L (98-107); GFR AFRICAN-AMERICAN > 60; GLUCOSE,RANDOM 118 mg/dL (75-110); MAGNESIUM 1.7 MG/DL (1.6-2.3); POTASSIUM 3.9 MMOL/L (3.6-5.0); SODIUM 138 mmol/l (132-148)
[2016-10-09] MEDS: Lidocaine 5% Patch TD SCH (08:36)
--- NOTE | 2016-10-09 12:24 | CP.PCM.PCO ---
Additional Comments - Additional Comments Additional Comments: Update on changes from yesterday: 56 yo male with htn, cpd, depression, etoh, multiple pancreatitis and schizoaffective disorder admitted to Psych unit for crisis evaluation, further treatment and stabilization of depression. Essential Hypertension -increase Amlodipine dose from 5 mg to 10 mg daily -BP responded well with the increase in dosage -BP range is 128/76 -Monitor for amlodipine related side effects Hypokalemia -resolved -CMP on 10/08/16 showed K+ 3.3, but patient asymptomatic -Replace potassium with 40 MQE PO once -repeat K is 3.9 Abdomenial Pain -improving -lipase: wnl -pending u/s
--- NOTE | 2016-10-09 15:37 | PCM.PYCHPN ---
Psychiatric Progress Note - Psychiatric Progress Note Patient seen today, length of contact: pt seen and evaluate Patient Chief Complaint: pt is still depressed and anxious and reports decrease in withdrawls.pt is still c/o pain and has no tremors at this time Problems Identified/Issues Discussed: admitted for depression,suicidal ideation, and alcohol abuse Medical Record Reviewed: Yes Mental Status Examination - Cognitive Function Orientation: Person, Place, Situation, Time Attention: WNL Concentration: WNL Association: WNL Fund of Knowledge: WNL - Mood Mood: Depressed - Affect Affect: Constricted, Depressed - Speech Speech: Appropriate - Formal Thought Process Formal Thought Process: Hallucinations (denies currently) - Suicidal Ideation Suicidal Ideation: No - Homicidal Ideation Homicidal Ideation: No Goal/Treatment Plan - Goal/Treatment Plan Progress Toward Problem(s) and Goals/Treatment Plan: omaira continue the alcohol protocol and adjust zoloft to stabilize the depression relapse prevention and referral to rehab
[2016-10-10] MEDS: Lidocaine 5% Patch TD SCH (08:42)
--- NOTE | 2016-10-10 10:23 | US ---
HISTORY: abdominal pain COMPARISON: CT abdomen and pelvis without IV contrast performed 06/17/16 TECHNIQUE: Sonographic evaluation of the abdomen. FINDINGS: LIVER: Measures 15.3 cm in sagittal dimension. Echogenic liver may be seen in setting of hepatic parenchymal disease or fatty infiltration. No focal hepatic mass identified. The main portal vein appears patent with normal directional flow. No intrahepatic bile duct dilatation. GALLBLADDER: No gallstones. Gallbladder wall appears minimally thickened measuring approximately 4 mm. Negative sonographic Pereira's sign as assessed by the advertising sales associate. COMMON BILE DUCT: Measures 5 mm. PANCREAS: Not well visualized. RIGHT KIDNEY: Measures 9.6 x 5.2 x 5.5 cm. No obstructing calculus or hydronephrosis identified. LEFT KIDNEY: Measures 11.1 x 4.1 x 5.0 cm. No obstructing calculus or hydronephrosis identified. Malrotated low lying/pelvic kidney. SPLEEN: Measures approximately 11.7 cm. AORTA: Limited views appear unremarkable. IVC: Limited views appear unremarkable. OTHER FINDINGS: None. IMPRESSION: Echogenic liver may be seen in setting of hepatic parenchymal disease or fatty infiltration. Malrotated low-lying/ pelvic left kidney. Mild wall thickening of the gallbladder. Otherwise unremarkable.
--- NOTE | 2016-10-10 13:19 | PCM.PYCHPN ---
Psychiatric Progress Note - Psychiatric Progress Note Patient seen today, length of contact: discussed with team Patient Chief Complaint: i need a smoking patch Problems Identified/Issues Discussed: pt reports cigarette cravings. reports gi distress is improving. pt's mood is "ok" he is still wanting to to go inpt treatment for his alcohol dependence. no c/o of alcohol withdrawal. Medication Change: Yes (nicoderm started) Medical Record Reviewed: Yes Mental Status Examination - Cognitive Function Orientation: Person, Place, Situation, Time Attention: WNL Concentration: WNL Association: WNL Fund of Knowledge: WNL - Mood Mood: Depressed - Affect Affect: Constricted, Depressed - Speech Speech: Appropriate - Formal Thought Process Formal Thought Process: No Impairment - Suicidal Ideation Suicidal Ideation: No - Homicidal Ideation Homicidal Ideation: No Goal/Treatment Plan - Goal/Treatment Plan Need for Continued Stay: Remain at risks for inpatient hospitalization, Discharge may exacerbated symptoms Progress Toward Problem(s) and Goals/Treatment Plan: alcohol dependence major depression continue with current treatment will continue to taper ativan disposition planning Estimated Date of D/C: 10/14/16 - Smoking Cessation Smoking Cessation Initiated: Yes
[2016-10-11] MEDS: Lidocaine 5% Patch TD SCH (08:45)
--- NOTE | 2016-10-11 08:59 | PCM.PYCHPN ---
Psychiatric Progress Note - Psychiatric Progress Note Patient seen today, length of contact: discussed with team Patient Chief Complaint: i m getting there Problems Identified/Issues Discussed: pt states he is starting to feel better. mood/energy improving. no c/o nausea. tolerating decrease in ativan. is still motivated to go to inpt rehab. Medication Change: Yes (lower ativan) Medical Record Reviewed: Yes Mental Status Examination - Cognitive Function Orientation: Person, Place, Situation, Time Attention: WNL Concentration: WNL Association: WNL Fund of Knowledge: WN Decription of patient's judgement and insights: fair - Mood Mood: Depressed - Affect Affect: Constricted, Depressed - Speech Speech: Appropriate - Formal Thought Process Formal Thought Process: No Impairment Psychotic Thoughts and Behaviors: denies a/v hallucinations - Suicidal Ideation Suicidal Ideation: No - Homicidal Ideation Homicidal Ideation: No Goal/Treatment Plan - Goal/Treatment Plan Need for Continued Stay: Remain at risks for inpatient hospitalization, Discharge may exacerbated symptoms Progress Toward Problem(s) and Goals/Treatment Plan: alcohol dependence major depression continue with current treatment will continue to taper ativan- lower to 0.5mg bid today disposition planning- referrals sent to inpt rehab Estimated Date of D/C: 10/14/16
[2016-10-11 16:53] VITALS: O2SAT 98
[2016-10-12] MEDS: Lidocaine 5% Patch TD SCH (08:38)
--- NOTE | 2016-10-12 11:30 | PCM.PYCHPN ---
Psychiatric Progress Note - Psychiatric Progress Note Patient seen today, length of contact: discussed with team Patient Chief Complaint: i m feeling better Problems Identified/Issues Discussed: pt states he is starting to feel better.reports even back pain is getting better and now more localized to right side. he is denying any withdrawal symptoms. states his mood is improving. Medication Change: Yes (dc standing ativan after tonights dose) Medical Record Reviewed: Yes Mental Status Examination - Cognitive Function Orientation: Person, Place, Situation, Time Attention: WNL Concentration: WNL Association: WNL Fund of Knowledge: [facility] Decription of patient's judgement and insights: fair - Mood Mood: Depressed - Affect Affect: Constricted (improving), Depressed - Speech Speech: Appropriate - Formal Thought Process Formal Thought Process: No Impairment Psychotic Thoughts and Behaviors: denies a/v hallucinations - Suicidal Ideation Suicidal Ideation: No - Homicidal Ideation Homicidal Ideation: No Goal/Treatment Plan - Goal/Treatment Plan Need for Continued Stay: Remain at risks for inpatient hospitalization, Discharge may exacerbated symptoms Progress Toward Problem(s) and Goals/Treatment Plan: alcohol dependence major depression continue with current treatment will continue to taper ativan- dc after tonight's dose disposition planning- referrals sent to in rehab Estimated Date of D/C: 10/14/16
--- NOTE | 2016-10-13 06:06 | CP.PCM.PN ---
Subjective - Date & Time of Evaluation Date of Evaluation: 10/13/16 Time of Evaluation: 08:00 - Subjective Subjective: Patient admitted to [facility] is being follow up for back pain with hx of L2 compression fracture s/p kypoplasty. Pt is out of bed, walking around comfortably. NAD. Pt states that the chronic back pain is improving with pain medications. Denies saddle anesthiesia, bowel and bladder discomfort. Denies loss of sensation and motor of the extremity. Denies gait disturbance and focal neurological deficits. Denies fever, nausea , vomiting, chills. Salome sob, palpitation, chest pain. Objective - Vital Signs/Intake and Output Vital Signs (last 24 hours): Temp Pulse Resp BP Pulse Ox 98.2 F 97 H 18 131/80 98 10/12/16 16:03 10/12/16 16:03 10/12/16 16:03 10/12/16 16:03 10/11/16 16:52 - Medications Medications: Current Medications Acetaminophen (Tylenol 325mg Tab) 650 mg PO Q4 PRN PRN Reason: Pain, moderate (4-7) Last Admin: 10/07/16 13:28 Dose: 650 mg Al Hydrox/Mg Hydrox/Simethicone (Maalox Plus 30 Ml) 30 ml PO Q4 PRN PRN Reason: Dyspepsia Albuterol (Ventolin Hfa 90 Mcg/Actuation (8 G)) 1 puff IH Q6H PRN PRN Reason: Shortness of Breath Amlodipine Besylate (Norvasc) 10 mg PO DAILY [facility] Last Admin: 10/12/16 08:39 Dose: 10 mg Aspirin (Aspirin Chewable) 81 mg PO DAILY [facility] Last Admin: 10/12/16 08:40 Dose: 81 mg Atorvastatin Calcium (Lipitor) 20 mg PO DAILY [facility] Last Admin: 10/12/16 08:56 Dose: 20 mg Diphenhydramine HCl (Benadryl) 50 mg IM Q6 PRN PRN Reason: Extrapyramidal S/S Unable PO Diphenhydramine HCl (Benadryl) 50 mg PO Q6 PRN PRN Reason: Extrapyramidal Symptoms Last Admin: 10/11/16 22:32 Dose: 50 mg Diphenhydramine HCl (Benadryl) 50 mg PO HS PRN PRN Reason: Sleep Last Admin: 10/12/16 21:20 Dose: 50 mg Doxepin HCl (Sinequan) 10 mg PO HS [facility] Last Admin: 10/12/16 21:22 Dose: 10 mg Folic Acid (Folic Acid) 1 mg PO DAILY [facility] Last Admin: 10/12/16 08:39 Dose: 1 mg Gabapentin (Neurontin) 400 mg PO HS [facility] Last Admin: 10/12/16 21:22 Dose: 400 mg Haloperidol (Haldol) 5 mg PO Q4 PRN PRN Reason: Agitation Haloperidol Lactate (Haldol) 5 mg IM Q4 PRN PRN Reason: Agitation, Unable to Take PO Lidocaine (Lidoderm) 1 ea TD DAILY [facility] Last Admin: 10/12/16 08:38 Dose: 1 ea Lorazepam (Ativan) 2 mg IM Q4 PRN PRN Reason: Anxiety/Agitation,Unable PO Lorazepam (Ativan) 1 mg PO Q6 PRN PRN Reason: Anxiety/Agitation Magnesium Hydroxide (Milk Of Magnesia) 30 ml PO HS PRN PRN Reason: Constipation Nicotine (Nicoderm Cq) 1 patch TD DAILY [facility] Last Admin: 10/12/16 08:41 Dose: 1 patch Quetiapine Fumarate (Seroquel) 50 mg PO HS [facility] Last Admin: 10/12/16 21:22 Dose: 50 mg Sertraline HCl (Zoloft) 100 mg PO DAILY [facility] Last Admin: 10/12/16 08:40 Dose: 100 mg Thiamine HCl (Vitamin B1 Tab) 100 mg PO DAILY [facility] Last Admin: 10/12/16 08:40 Dose: 100 mg Tramadol HCl (Ultram) 50 mg PO Q6 PRN PRN Reason: Pain, severe (8-10) Last Admin: 10/12/16 21:24 Dose: 50 mg - Labs Labs: 10/07/16 02:57 10/09/16 07:25 - Constitutional Appears: Non-toxic, No Acute Distress - Head Exam Head Exam: ATRAUMATIC - Eye Exam Eye Exam: EOMI, Normal appearance - ENT Exam ENT Exam: Mucous Membranes Moist - Neck Exam Neck Exam: Full ROM - Respiratory Exam Respiratory Exam: Clear to Ausculation Bilateral. absent: Decreased Breath Sounds, Rales, Rhonchi, Wheezes - Cardiovascular Exam Cardiovascular Exam: REGULAR RHYTHM, +S1, +S2. absent: Murmur - GI/Abdominal Exam GI & Abdominal Exam: Soft, Normal Bowel Sounds. absent: Tenderness - Extremities Exam Extremities Exam: Full ROM, Normal Capillary Refill. absent: Joint Swelling, Pedal Edema - Back Exam Back Exam: Full ROM, NORMAL INSPECTION. absent: vertebral tenderness - Neurological Exam Neurological Exam: Alert, Awake, CN II-XII Intact, Normal Gait, Oriented x3 Neuro motor strength exam: Left Upper Extremity: 5, Right Upper Extremity: 5, Left Lower Extremity: 4, Right Lower Extremity: 4 - Psychiatric Exam Psychiatric exam: Normal Affect, Normal Mood - Skin Skin Exam: Normal Color, Warm Assessment and Plan - Assessment and Plan (Free Text) Assessment: 56 yo male with htn, cpd, depression, etoh, multiple pancreatitis and schizoaffective disorder admitted to Psych unit for crisis evaluation, further treatment and stabilization of depression. Depression: -per psych managment Essential Hypertension -stable -c/w Amlodipine 10 mg daily -Monitor for amlodipine related side effects Abdominal Pain -resolved -lipase: wnl -u/s: echogenic liver may be seen in setting of hepatic parenchymal disease or fatty infiltertion. mild wall thickening of gallbladder, negative andrews' s sign. otherwise unremarkable -will continue to monitor h/o Pancreatitis -C/o abdominal pain w/o N/V, and tolerating PO -F/U Lipase ordered for 10/08/16 -F/U CMP ordered for 10/08/16 Hyperlipidemia - c/w statin therapy Hx of L2 compression fracture (atraumatic), s/p kyphoplasty on 09/20/16 - Lidocaine 5% patch daily - c/w home Gabapentin 400 mg PO HS - c/w fosamax PO weekly - vitamin D 2000 IU daily ETOH abuse/depression - management per psych H/O Asthma -c/w home Albuterol HFA PRN DVT prophylaxis - ambulating, no previous history of DVT or/and Thrombophilia
[2016-10-13] MEDS: Lidocaine 5% Patch TD SCH (09:00)
--- NOTE | 2016-10-13 10:00 | PCM.PYCHPN ---
Psychiatric Progress Note - Psychiatric Progress Note Patient seen today, length of contact: discussed with team Patient Chief Complaint: i m getting there doc Problems Identified/Issues Discussed: pt denies withdrawal symptoms. has completed course of ativan. states his mood is less depressed. no psychotic symptoms. agrees that symptoms come during periods where he drinks heavily. he reports he feels his drinking is leading to more and more problems and states he is serious about stopping. he has been unable to maintain sobriety in the community. Medication Change: No ( ) Medical Record Reviewed: Yes Mental Status Examination - Cognitive Function Orientation: Person, Place, Situation, Time Memory: Intact Attention: WNL Concentration: WNL Association: [facility] Fund of Knowledge: [facility] Decription of patient's judgement and insights: fair - Mood Mood: Depressed - Affect Affect: Broad, Depressed - Speech Speech: Appropriate - Formal Thought Process Formal Thought Process: No Impairment Psychotic Thoughts and Behaviors: denies a/v hallucinations - Suicidal Ideation Suicidal Ideation: No - Homicidal Ideation Homicidal Ideation: No Goal/Treatment Plan - Goal/Treatment Plan Need for Continued Stay: Remain at risks for inpatient hospitalization, Discharge may exacerbated symptoms Progress Toward Problem(s) and Goals/Treatment Plan: alcohol dependence major depression pt's primary issue is alcohol dependence and his psychiatric symptoms improve when pt is sober continue with current treatment has completed detox with ativan Estimated Date of D/C: 10/14/16
--- NOTE | 2016-10-14 08:56 | PCM.PYCHPN ---
Psychiatric Progress Note - Psychiatric Progress Note Patient seen today, length of contact: discussed with team Patient Chief Complaint: i feel pretty good Problems Identified/Issues Discussed: pt participating in treatment. he is still expressing motivation to go to rehab programs. he is participating in treatment. mood is improving. pt states his pain as improved and he is ambulating around the unit. Medication Change: No ( ) Medical Record Reviewed: Yes Mental Status Examination - Cognitive Function Orientation: Person, Place, Situation, Time Memory: Intact Attention: WNL Concentration: WNL Association: WN Fund of Knowledge: [facility] Decription of patient's judgement and insights: fair - Mood Mood: Depressed - Affect Affect: Broad, Depressed - Speech Speech: Appropriate - Formal Thought Process Formal Thought Process: No Impairment Psychotic Thoughts and Behaviors: denies a/v hallucinations - Suicidal Ideation Suicidal Ideation: No - Homicidal Ideation Homicidal Ideation: No Goal/Treatment Plan - Goal/Treatment Plan Need for Continued Stay: Remain at risks for inpatient hospitalization, Discharge may exacerbated symptoms Progress Toward Problem(s) and Goals/Treatment Plan: alcohol dependence major depression pt's primary issue is alcohol dependence and his psychiatric symptoms improve when pt is sober will continue with current treatment has completed detox with ativan and we are referring to inpt substance abuse treatment Estimated Date of D/C: 10/14/16 - Smoking Cessation Smoking Cessation Initiated: Yes
[2016-10-14] MEDS: Lidocaine 5% Patch TD SCH (09:00)
[2016-10-15] MEDS: Lidocaine 5% Patch TD SCH (09:14)
--- NOTE | 2016-10-15 10:28 | PCM.PYCHPN ---
Psychiatric Progress Note - Psychiatric Progress Note Patient seen today, length of contact: Patient evaluated, chart reviewed, case discussed w/ staff Patient Chief Complaint: "I'm good" Problems Identified/Issues Discussed: Patient is goal oriented, stating that he would like to attend rehab following discharge. He reports that his mood is improving. He continues to have chronic pain. No psychosis or paranoia. No SI/HI. Medication Change: No ( ) Medical Record Reviewed: Yes Mental Status Examination - Cognitive Function Orientation: Person, Place, Situation, Time Memory: Intact Attention: WNL Concentration: WNL Association: WN Fund of Knowledge: [facility] Decription of patient's judgement and insights: Fair I/J - Mood Mood: Depressed - Affect Affect: Broad - Speech Speech: Appropriate - Formal Thought Process Formal Thought Process: No Impairment Psychotic Thoughts and Behaviors: NO AH/VH/paranoia/delusions - Suicidal Ideation Suicidal Ideation: No - Homicidal Ideation Homicidal Ideation: No Goal/Treatment Plan - Goal/Treatment Plan Need for Continued Stay: Remain at risks for inpatient hospitalization, Discharge may exacerbated symptoms Progress Toward Problem(s) and Goals/Treatment Plan: 56 yo male w/ h/o MDD and severe alcohol use disorder, now improving clinically , would benefit from rehab after discharge. -Continue current medications -Individual and group therapy Estimated Date of D/C: 10/17/16 - Smoking Cessation Smoking Cessation Initiated: Yes
[2016-10-16] MEDS: Lidocaine 5% Patch TD SCH (10:00)
--- NOTE | 2016-10-16 11:28 | PCM.PYCHPN ---
Psychiatric Progress Note - Psychiatric Progress Note Patient seen today, length of contact: Patient evaluated, chart reviewed, case discussed w/ staff Patient Chief Complaint: "I'm good" Problems Identified/Issues Discussed: No significant events overnight. Patient continues to report chronic pain and distress related to the chronic pain. Patient is goal oriented, focused on rehab following discharge. He reports that his mood is improving. No psychosis or paranoia. No SI/HI. Medication Change: No ( ) Medical Record Reviewed: Yes Mental Status Examination - Cognitive Function Orientation: Person, Place, Situation, Time Memory: Intact Attention: WNL Concentration: WNL Association: [facility] Fund of Knowledge: [facility] Decription of patient's judgement and insights: Fair I/J - Mood Mood: Depressed - Affect Affect: Broad - Speech Speech: Appropriate - Formal Thought Process Formal Thought Process: No Impairment Psychotic Thoughts and Behaviors: NO AH/VH/paranoia/delusions - Suicidal Ideation Suicidal Ideation: No - Homicidal Ideation Homicidal Ideation: No Goal/Treatment Plan - Goal/Treatment Plan Need for Continued Stay: Remain at risks for inpatient hospitalization, Discharge may exacerbated symptoms Progress Toward Problem(s) and Goals/Treatment Plan: 56 yo male w/ h/o MDD and severe alcohol use disorder, now improving clinically , would benefit from rehab after discharge. -Continue current medications -Individual and group therapy Estimated Date of D/C: 10/17/16
[2016-10-17] MEDS: Lidocaine 5% Patch TD SCH (09:18)
--- NOTE | 2016-10-17 12:50 | CP.PCM.PN ---
Subjective - Date & Time of Evaluation Date of Evaluation: 10/17/16 Time of Evaluation: 12:49 - Subjective Subjective: Patient admitted to [facility] for schizophrenia, depression and chronic back pain of L2 compression fracture s/p kypoplasty currently c/o right testicle pain for the past 3 weeks but the last 3 days has been constant and worsen "pain". He reports the right testicles is higher and painful with mild swelling compare to the left. Pt also c/o of a "itchy rash on his penis". Denies fever, chills, n/v. Denies penial discharge, lesion, vesicles, warts. Denies bulging of the inguinal area or scrotal area. Denies history sti and currently not sexually active. Denies similar episodes in the past. Denies dysuria, hematuria, flank/suprapubic pain. Objective - Vital Signs/Intake and Output Vital Signs (last 24 hours): Temp Pulse Resp BP Pulse Ox 97.7 F 68 18 107/68 98 10/17/16 09:00 10/17/16 09:20 10/17/16 09:00 10/17/16 09:20 10/11/16 16:52 - Medications Medications: Current Medications Acetaminophen (Tylenol 325mg Tab) 650 mg PO Q4 PRN PRN Reason: Pain, moderate (4-7) Last Admin: 10/07/16 13:28 Dose: 650 mg Al Hydrox/Mg Hydrox/Simethicone (Maalox Plus 30 Ml) 30 ml PO Q4 PRN PRN Reason: Dyspepsia Albuterol (Ventolin Hfa 90 Mcg/Actuation (8 G)) 1 puff IH Q6H PRN PRN Reason: Shortness of Breath Amlodipine Besylate (Norvasc) 10 mg PO DAILY [facility] Last Admin: 10/17/16 09:20 Dose: 10 mg Aspirin (Aspirin Chewable) 81 mg PO DAILY [facility] Last Admin: 10/17/16 09:17 Dose: 81 mg Atorvastatin Calcium (Lipitor) 20 mg PO DAILY [facility] Last Admin: 10/17/16 09:19 Dose: 20 mg Ciprofloxacin (Cipro) 500 mg PO Q12 [facility] Diphenhydramine HCl (Benadryl) 50 mg IM Q6 PRN PRN Reason: Extrapyramidal S/S Unable PO Diphenhydramine HCl (Benadryl) 50 mg PO Q6 PRN PRN Reason: Extrapyramidal Symptoms Last Admin: 10/11/16 22:32 Dose: 50 mg Diphenhydramine HCl (Benadryl) 50 mg PO HS PRN PRN Reason: Sleep Last Admin: 10/12/16 21:20 Dose: 50 mg Doxepin HCl (Sinequan) 10 mg PO HS [facility] Last Admin: 10/16/16 21:28 Dose: 10 mg Folic Acid (Folic Acid) 1 mg PO DAILY [facility] Last Admin: 10/17/16 09:18 Dose: 1 mg Gabapentin (Neurontin) 400 mg PO HS [facility] Last Admin: 10/16/16 21:28 Dose: 400 mg Haloperidol (Haldol) 5 mg PO Q4 PRN PRN Reason: Agitation Haloperidol Lactate (Haldol) 5 mg IM Q4 PRN PRN Reason: Agitation, Unable to Take PO Lidocaine (Lidoderm) 1 ea TD DAILY [facility] Last Admin: 10/17/16 09:18 Dose: 1 ea Lorazepam (Ativan) 2 mg IM Q4 PRN PRN Reason: Anxiety/Agitation,Unable PO Lorazepam (Ativan) 1 mg PO Q6 PRN PRN Reason: Anxiety/Agitation Magnesium Hydroxide (Milk Of Magnesia) 30 ml PO HS PRN PRN Reason: Constipation Nicotine (Nicoderm Cq) 1 patch TD DAILY [facility] Last Admin: 10/17/16 09:20 Dose: 1 patch Quetiapine Fumarate (Seroquel) 50 mg PO HS [facility] Last Admin: 10/16/16 21:28 Dose: 50 mg Sertraline HCl (Zoloft) 100 mg PO DAILY [facility] Last Admin: 10/17/16 09:22 Dose: 100 mg Thiamine HCl (Vitamin B1 Tab) 100 mg PO DAILY [facility] Last Admin: 10/17/16 09:22 Dose: 100 mg Tramadol HCl (Ultram) 50 mg PO Q6 PRN PRN Reason: Pain, severe (8-10) Last Admin: 10/17/16 09:24 Dose: 50 mg - Labs Labs: 10/07/16 02:57 10/09/16 07:25 - Constitutional Appears: Non-toxic, No Acute Distress - Head Exam Head Exam: NORMAL INSPECTION - Eye Exam Eye Exam: EOMI, Normal appearance - ENT Exam ENT Exam: Mucous Membranes Moist - Neck Exam Neck Exam: Full ROM - Respiratory Exam Respiratory Exam: Clear to Ausculation Bilateral - Cardiovascular Exam Cardiovascular Exam: REGULAR RHYTHM, +S1, +S2. absent: Murmur - GI/Abdominal Exam GI & Abdominal Exam: Soft, Normal Bowel Sounds. absent: Tenderness - Exam Exam: Circumcision (redness of the penis gland. ), NORMAL INSPECTION, Scrotal Swelling (right side scrotal swelling and higher compare to the left. no redness ), Testicular Tenderness (moderate tenderness of the right). absent : Uretheral Discharge, Bladder Distension External exam: NORMAL EXTERNAL EXAM (no lesion warts vesicles noted of the genital area. ) Additional comments: no bulging noted of the inguinal area. cremaster relfex intact bilaterally. - Extremities Exam Extremities Exam: Full ROM. absent: Calf Tenderness - Back Exam Back Exam: Full ROM, NORMAL INSPECTION - Neurological Exam Neurological Exam: Alert, Awake, CN II-XII Intact, Normal Gait, Oriented x3 - Psychiatric Exam Psychiatric exam: Normal Affect, Normal Mood - Skin Skin Exam: Normal Color, Warm Assessment and Plan - Assessment and Plan (Free Text) Assessment: 56 yo male with htn, cpd, depression, etoh, multiple pancreatitis and schizoaffective disorder admitted to Psych unit for crisis evaluation, further treatment and stabilization of depression. Right testicular swelling -most likely epidemititis, unlikely torsion due to gradual pain, unlikely hernia -start on ciprofloxicen at this time -f/u u/a, urine culture, chlamydia, gonorrhea, cbc, cmp -f/u u/s of the testicles -will consider surgery/urologist consult pending imaging and labs Tinea cruris -start on anitfungal cream bid Depression: -per psych managment Essential Hypertension -stable -c/w Amlodipine 10 mg daily -Monitor for amlodipine related side effects Abdominal Pain -resolved -lipase: wnl -u/s: echogenic liver may be seen in setting of hepatic parenchymal disease or fatty infiltertion. mild wall thickening of gallbladder, negative andrews' s sign. otherwise unremarkable -will continue to monitor h/o Pancreatitis -C/o abdominal pain w/o N/V, and tolerating PO -F/U Lipase ordered for 10/08/16 -F/U CMP ordered for 10/08/16 Hyperlipidemia - c/w statin therapy Hx of L2 compression fracture (atraumatic), s/p kyphoplasty on 09/20/16 - Lidocaine 5% patch daily - c/w home Gabapentin 400 mg PO HS - c/w fosamax PO weekly - vitamin D 2000 IU daily ETOH abuse/depression - management per psych H/O Asthma -c/w home Albuterol HFA PRN DVT prophylaxis - ambulating, no previous history of DVT or/and Thrombophilia
--- NOTE | 2016-10-17 13:47 | PCM.PYCHPN ---
Psychiatric Progress Note - Psychiatric Progress Note Patient seen today, length of contact: discussed with team Patient Chief Complaint: i have a hernia Problems Identified/Issues Discussed: pt participating in treatment. c/o elevated testicle, pain and thinks he has a hernia. seen by family medicine. he reports good sleep. Medical Problems: see hpi, followed by family guerra Medication Change: No ( ) Medical Record Reviewed: Yes Mental Status Examination - Cognitive Function Orientation: Person, Place, Situation, Time Memory: Intact Attention: WNL Concentration: WNL Association: WNL Fund of Knowledge: WN Decription of patient's judgement and insights: fair - Mood Mood: Depressed - Affect Affect: Broad - Speech Speech: Appropriate - Formal Thought Process Formal Thought Process: No Impairment - Suicidal Ideation Suicidal Ideation: No - Homicidal Ideation Homicidal Ideation: No Plan: denies si/hi Goal/Treatment Plan - Goal/Treatment Plan Need for Continued Stay: Remain at risks for inpatient hospitalization, Discharge may exacerbated symptoms Progress Toward Problem(s) and Goals/Treatment Plan: alcohol dependence major depression pt's primary issue is alcohol dependence and his psychiatric symptoms improve when pt is sober will continue with current treatment have dc'd all ativa followed by family charlie who is ordering an ultrasound Estimated Date of D/C: 10/17/16
[2016-10-17 15:37] LABS: RBC URINE < 1 /hpf (0-3); URINE BILIRUBIN NEGATIVE (NEGATIVE); URINE BLOOD NEGATIVE (NEGATIVE); URINE COLOR YELLOW (YELLOW); URINE GLUCOSE (UA) NEG (Normal); URINE KETONE NEGATIVE (NEGATIVE); URINE LEUKOCYTE ESTERASE NEG Leu/uL (Negative); URINE PROTEIN NEGATIVE (NEGATIVE); URINE UROBILINOGEN 0.2-1.0 mg/dL (0.2-1.0); WBC URINE < 1 /hpf (0-5)
--- NOTE | 2016-10-18 10:05 | PCM.PYCHPN ---
Psychiatric Progress Note - Psychiatric Progress Note Patient seen today, length of contact: discussed with team Patient Chief Complaint: im going down for an ultrasound Problems Identified/Issues Discussed: pt participating in treatment. he is interacting with other pts, staff and is supportive of other pts. he continues to express that he wants help to stay sober. his mood is improved. Medical Problems: see hpi, followed by family guerra Medication Change: No ( ) Medical Record Reviewed: Yes Mental Status Examination - Cognitive Function Orientation: Person, Place, Situation, Time Memory: Intact Attention: WNL Concentration: WNL Association: WNL Fund of Knowledge: [facility] Decription of patient's judgement and insights: fair - Mood Mood: Depressed - Affect Affect: Broad - Speech Speech: Appropriate - Formal Thought Process Formal Thought Process: No Impairment Psychotic Thoughts and Behaviors: denies a/v hallucinations - Suicidal Ideation Suicidal Ideation: No - Homicidal Ideation Homicidal Ideation: No Goal/Treatment Plan - Goal/Treatment Plan Need for Continued Stay: Remain at risks for inpatient hospitalization, Discharge may exacerbated symptoms Progress Toward Problem(s) and Goals/Treatment Plan: alcohol dependence major depression pt's primary issue is alcohol dependence and his psychiatric symptoms improve when pt is sober will continue with current treatment refer to inpt rehab programs followed by family guerra who is ordering an ultrasound- to be done today Estimated Date of D/C: 10/17/16
[2016-10-18] MEDS: Lidocaine 5% Patch TD SCH (10:14)
--- NOTE | 2016-10-18 15:48 | US ---
HISTORY: testicular pain TECHNIQUE: Realtime sonography through the scrotum with color and doppler flow. COMPARISON: None Available. FINDINGS: RIGHT TESTICLE: Measures 1.9 x 3 x 3.3 cm. Normal echotexture and flow. RIGHT EPIDIDYMIS: Epididymal head measures 1.0 cm. Grossly unremarkable appearance with normal flow. LEFT TESTICLE: Measures 2.2 x 3 x 3.8 cm. Normal echotexture and flow. LEFT EPIDIDYMIS: Epididymal head measures 0.9 x 1.1 cm. Grossly unremarkable appearance with normal flow. HYDROCELE: Bilateral, small an approximately symmetrical. VARICOCELE: None. OTHER FINDINGS: None. IMPRESSION: Negative study for epididymitis, orchitis or torsion. Small bilateral hydroceles.
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
[2016-10-19] MEDS: Lidocaine 5% Patch TD SCH (08:44)
--- NOTE | 2016-10-19 12:52 | PCM.PYCHPN ---
Psychiatric Progress Note - Psychiatric Progress Note Patient seen today, length of contact: discussed with team Patient Chief Complaint: am i going to go under the knife? Problems Identified/Issues Discussed: pt active in his treatment. wants to remain sober. mood/anxiety improved. no hallucinations. he is agreeable with family medicine work up and ct scan shows small no-obstructing hernia. Medical Problems: see hpi, followed by family guerra Medication Change: No ( ) Medical Record Reviewed: Yes Mental Status Examination - Cognitive Function Orientation: Person, Place, Situation, Time Memory: Intact Attention: WNL Concentration: WNL Association: WNL Fund of Knowledge: [facility] Decription of patient's judgement and insights: fair insight. good judgment - Mood Mood: Neutral - Affect Affect: Broad - Speech Speech: Appropriate - Formal Thought Process Formal Thought Process: No Impairment Psychotic Thoughts and Behaviors: denies a/v hallucinations - Suicidal Ideation Suicidal Ideation: No - Homicidal Ideation Homicidal Ideation: No Goal/Treatment Plan - Goal/Treatment Plan Need for Continued Stay: Remain at risks for inpatient hospitalization, Discharge may exacerbated symptoms Progress Toward Problem(s) and Goals/Treatment Plan: alcohol dependence major depression will continue with current treatment refer to inpt rehab programs followed by family guerra who is ordering medical testing Estimated Date of D/C: 10/17/16 - Smoking Cessation Smoking Cessation Initiated: Yes
[2016-10-20] MEDS ORDERED: Lidocaine 5% Patch TD ONE (09:00)
[2016-10-20] MEDS: Lidocaine 5% Patch TD SCH (22:15)
[2016-10-21] MEDS: Lidocaine 5% Patch TD SCH (09:10)
--- NOTE | 2016-10-21 10:46 | PCM.PYCHPN ---
Psychiatric Progress Note - Psychiatric Progress Note Patient seen today, length of contact: discussed with team Patient Chief Complaint: no new complaints Problems Identified/Issues Discussed: pt participates in treatment. continues to express that he feels better the longer he is sober. struggles with cravings. he still want's inpt rehab. he denies any psychotic symptoms. Medical Problems: see hpi, followed by family guerra Medication Change: No ( ) Medical Record Reviewed: Yes Mental Status Examination - Cognitive Function Orientation: Person, Place, Situation, Time Memory: Intact Attention: WNL Concentration: WNL Association: WNL Fund of Knowledge: [facility] Decription of patient's judgement and insights: fair insight. good judgment - Mood Mood: Neutral - Affect Affect: Broad - Speech Speech: Appropriate - Formal Thought Process Formal Thought Process: No Impairment Psychotic Thoughts and Behaviors: denies a/v hallucinations - Suicidal Ideation Suicidal Ideation: No - Homicidal Ideation Homicidal Ideation: No Goal/Treatment Plan - Goal/Treatment Plan Need for Continued Stay: Remain at risks for inpatient hospitalization, Discharge may exacerbated symptoms Progress Toward Problem(s) and Goals/Treatment Plan: alcohol dependence major depression will continue with current treatment refer to inpt rehab programs followed by [facility] who is ordering medical testing Estimated Date of D/C: 10/17/16
--- NOTE | 2016-10-22 09:48 | PCM.PYCHPN ---
Psychiatric Progress Note - Psychiatric Progress Note Patient seen today, length of contact: discussed with team Patient Chief Complaint: my back hurts still Problems Identified/Issues Discussed: pt c/o back pain. he is participating in treatment. he is calling [facility] daily to ask about beds. he denies suicidal or homicidal thoughts. Medical Problems: see hpi, followed by family guerra Medication Change: No ( ) Medical Record Reviewed: Yes Mental Status Examination - Cognitive Function Orientation: Person, Place, Situation, Time Memory: Intact Attention: WNL Concentration: WNL Association: WNL Fund of Knowledge: WN Decription of patient's judgement and insights: fair insight. good judgment - Mood Mood: Neutral - Affect Affect: Broad - Speech Speech: Appropriate - Formal Thought Process Formal Thought Process: No Impairment Psychotic Thoughts and Behaviors: denies a/v hallucinations - Suicidal Ideation Suicidal Ideation: No - Homicidal Ideation Homicidal Ideation: No Goal/Treatment Plan - Goal/Treatment Plan Need for Continued Stay: Remain at risks for inpatient hospitalization, Discharge may exacerbated symptoms Progress Toward Problem(s) and Goals/Treatment Plan: alcohol dependence major depression will continue with current treatment add flexeril prn for back pain refer to inpt rehab programs followed by family guerra who is ordering medical testing Estimated Date of D/C: 10/17/16
[2016-10-22] MEDS: Lidocaine 5% Patch TD SCH (10:24)
[2016-10-23] MEDS: Lidocaine 5% Patch TD SCH (09:28)
--- NOTE | 2016-10-23 11:55 | PCM.PYCHPN ---
Psychiatric Progress Note - Psychiatric Progress Note Patient seen today, length of contact: discussed with team Patient Chief Complaint: i think i want to go soon Problems Identified/Issues Discussed: pt feeling a little restless on the unit. depression is improved. he is frustrated waiting for inpt rehab. Medical Problems: see hpi, followed by family guerra Medication Change: No ( ) Medical Record Reviewed: Yes Mental Status Examination - Cognitive Function Orientation: Person, Place, Situation, Time Memory: Intact Attention: WNL Concentration: WNL Association: WNL Fund of Knowledge: WNL Decription of patient's judgement and insights: fair insight. good judgment - Mood Mood: Neutral - Affect Affect: Broad - Speech Speech: Appropriate - Formal Thought Process Formal Thought Process: No Impairment Psychotic Thoughts and Behaviors: denies a/v hallucinations - Suicidal Ideation Suicidal Ideation: No - Homicidal Ideation Homicidal Ideation: No Goal/Treatment Plan - Goal/Treatment Plan Need for Continued Stay: Remain at risks for inpatient hospitalization, Discharge may exacerbated symptoms Progress Toward Problem(s) and Goals/Treatment Plan: alcohol dependence major depression will continue with current treatment add flexeril prn for back pain refered to inpt rehab programs followed by family guerra who is ordering medical testing Estimated Date of D/C: 10/17/16
--- NOTE | 2016-10-23 12:14 | CP.PCM.PN ---
<Zacarias Brunner - Last Filed: 10/23/16 12:50> Subjective - Date & Time of Evaluation Date of Evaluation: 10/21/16 Time of Evaluation: 14:05 - Subjective Subjective: 56 y/o seen at bedside in not acute distress. Patient still c/o testicle pain sometimes. Patient has been work up and US showed small b/l hydrocele, no torsion, epididymitis or inguinal hernia. Denies CP, SOB, palpitations, urethral discharge, pain with urination or back pain. Objective - Vital Signs/Intake and Output Vital Signs (last 24 hours): Temp Pulse Resp BP Pulse Ox 98.4 F 83 20 138/81 98 10/22/16 16:47 10/22/16 16:47 10/22/16 16:47 10/23/16 09:25 10/11/16 16:52 - Medications Medications: Current Medications Acetaminophen (Tylenol 325mg Tab) 650 mg PO Q4 PRN PRN Reason: Pain, moderate (4-7) Last Admin: 10/07/16 13:28 Dose: 650 mg Al Hydrox/Mg Hydrox/Simethicone (Maalox Plus 30 Ml) 30 ml PO Q4 PRN PRN Reason: Dyspepsia Albuterol (Ventolin Hfa 90 Mcg/Actuation (8 G)) 1 puff IH Q6H PRN PRN Reason: Shortness of Breath Amlodipine Besylate (Norvasc) 10 mg PO DAILY [facility] Last Admin: 10/23/16 09:25 Dose: 10 mg Aspirin (Aspirin Chewable) 81 mg PO DAILY [facility] Last Admin: 10/23/16 09:27 Dose: 81 mg Atorvastatin Calcium (Lipitor) 20 mg PO DAILY [facility] Last Admin: 10/23/16 09:24 Dose: 20 mg Ciprofloxacin (Cipro) 500 mg PO Q12 [facility] Last Admin: 10/23/16 09:24 Dose: 500 mg Clotrimazole (Lotrimin 1% Cream) 1 applic TOP BID [facility] Last Admin: 10/23/16 09:28 Dose: 1 % Cyclobenzaprine HCl (Flexeril) 10 mg PO TID PRN PRN Reason: Muscle spasm Last Admin: 10/23/16 10:46 Dose: 10 mg Diphenhydramine HCl (Benadryl) 50 mg IM Q6 PRN PRN Reason: Extrapyramidal S/S Unable PO Diphenhydramine HCl (Benadryl) 50 mg PO Q6 PRN PRN Reason: Extrapyramidal Symptoms Last Admin: 10/22/16 17:25 Dose: 50 mg Diphenhydramine HCl (Benadryl) 50 mg PO HS PRN PRN Reason: Sleep Last Admin: 10/12/16 21:20 Dose: 50 mg Doxepin HCl (Sinequan) 10 mg PO HS [facility] Last Admin: 10/22/16 21:04 Dose: 10 mg Folic Acid (Folic Acid) 1 mg PO DAILY [facility] Last Admin: 10/23/16 09:24 Dose: 1 mg Gabapentin (Neurontin) 400 mg PO HS [facility] Last Admin: 10/22/16 21:04 Dose: 400 mg Haloperidol (Haldol) 5 mg PO Q4 PRN PRN Reason: Agitation Last Admin: 10/22/16 17:25 Dose: 5 mg Haloperidol Lactate (Haldol) 5 mg IM Q4 PRN PRN Reason: Agitation, Unable to Take PO Ibuprofen (Motrin Tab) 600 mg PO Q6 PRN PRN Reason: Pain, moderate (4-7) Last Admin: 10/22/16 21:05 Dose: 600 mg Lidocaine (Lidoderm) 1 ea TD DAILY [facility] Last Admin: 10/23/16 09:28 Dose: 1 ea Magnesium Hydroxide (Milk Of Magnesia) 30 ml PO HS PRN PRN Reason: Constipation Nicotine (Nicoderm Cq) 1 patch TD DAILY [facility] Last Admin: 10/22/16 10:24 Dose: 1 patch Quetiapine Fumarate (Seroquel) 50 mg PO HS [facility] Last Admin: 10/22/16 21:04 Dose: 50 mg Sertraline HCl (Zoloft) 100 mg PO DAILY [facility] Last Admin: 10/23/16 09:24 Dose: 100 mg Thiamine HCl (Vitamin B1 Tab) 100 mg PO DAILY [facility] Last Admin: 10/23/16 09:24 Dose: 100 mg Tramadol HCl (Ultram) 50 mg PO Q6 PRN PRN Reason: Pain, severe (8-10) Last Admin: 10/21/16 21:30 Dose: 50 mg - Labs Labs: 10/07/16 02:57 10/09/16 07:25 - Constitutional Appears: Non-toxic, No Acute Distress - Head Exam Head Exam: NORMAL INSPECTION - Eye Exam Eye Exam: PERRL - ENT Exam ENT Exam: Mucous Membranes Moist - Respiratory Exam Respiratory Exam: Clear to Ausculation Bilateral, NORMAL BREATHING PATTERN - Cardiovascular Exam Cardiovascular Exam: REGULAR RHYTHM, +S1, +S2. absent: Gallop - GI/Abdominal Exam GI & Abdominal Exam: Soft, Normal Bowel Sounds. absent: Distended, Tenderness - Exam Exam: Testicular Tenderness (mild testicular tenderness on r/side. No palpable mass, swelling, skin changes or hernia noticed). absent: Circumcision , Scrotal Swelling, Uretheral Discharge - Extremities Exam Extremities Exam: Full ROM, Normal Capillary Refill. absent: Tenderness - Neurological Exam Neurological Exam: Alert, Awake - Psychiatric Exam Psychiatric exam: Flat Affect - Skin Skin Exam: Warm Assessment and Plan - Assessment and Plan (Free Text) Assessment: 56 yo male with htn, copd, depression, etoh, multiple pancreatitis and schizoaffective disorder admitted to Psych unit for crisis evaluation, further treatment and stabilization of depression. Right testicular pain -Hydrocele vs referred pain vs idiopathic -UA neg -Testicle US: small b/l hydrocele. rest WNL(please read full report) -s/p L2 vertebroplasty -Cont Motrin 600mg PRN Depression: -per psych management Essential Hypertension -stable -c/w Amlodipine 10 mg daily -Monitor for amlodipine related side effects h/o Pancreatitis -C/o abdominal pain w/o N/V, and tolerating PO -Lipase WNL Hyperlipidemia - c/w statin therapy - Will repeat lipid panel and will start Fenofibrate if persistent elevated Hx of L2 compression fracture (atraumatic), s/p kyphoplasty on 09/20/16 - Lidocaine 5% patch daily - c/w home Gabapentin 400 mg PO HS - c/w fosamax PO weekly - vitamin D 2000 IU daily ETOH abuse/depression - management per psych H/O Asthma -c/w home Albuterol HFA PRN DVT prophylaxis - ambulating, no previous history of DVT or/and Thrombophilia <Emily Cordova - Last Filed: 10/24/16 11:01> Subjective - Subjective Subjective: ATTENDING NOTE/ATTESTATION PATIENT SEEN AND EXAMINED. CASE DISCUSSED WITH RESIDENT. AGREE WITH PLAN. Objective - Vital Signs/Intake and Output Vital Signs (last 24 hours): Temp Pulse Resp BP Pulse Ox 97.7 F 74 17 122/75 98 10/24/16 09:00 10/24/16 09:00 10/24/16 09:00 10/24/16 09:00 10/11/16 16:52 - Medications Medications: Current Medications Acetaminophen (Tylenol 325mg Tab) 650 mg PO Q4 PRN PRN Reason: Pain, moderate (4-7) Last Admin: 10/07/16 13:28 Dose: 650 mg Al Hydrox/Mg Hydrox/Simethicone (Maalox Plus 30 Ml) 30 ml PO Q4 PRN PRN Reason: Dyspepsia Albuterol (Ventolin Hfa 90 Mcg/Actuation (8 G)) 1 puff IH Q6H PRN PRN Reason: Shortness of Breath Last Admin: 10/24/16 10:09 Dose: 1 puff Amlodipine Besylate (Norvasc) 10 mg PO DAILY [facility] Last Admin: 10/24/16 08:53 Dose: 10 mg Aspirin (Aspirin Chewable) 81 mg PO DAILY [facility] Last Admin: 10/24/16 08:54 Dose: 81 mg Atorvastatin Calcium (Lipitor) 20 mg PO DAILY [facility] Last Admin: 10/24/16 08:53 Dose: 20 mg Ciprofloxacin (Cipro) 500 mg PO Q12 [facility] Last Admin: 10/24/16 08:55 Dose: 500 mg Clotrimazole (Lotrimin 1% Cream) 1 applic TOP BID [facility] Last Admin: 10/24/16 08:58 Dose: 1 % Cyclobenzaprine HCl (Flexeril) 10 mg PO TID PRN PRN Reason: Muscle spasm Last Admin: 10/23/16 20:27 Dose: 10 mg Diphenhydramine HCl (Benadryl) 50 mg IM Q6 PRN PRN Reason: Extrapyramidal S/S Unable PO Diphenhydramine HCl (Benadryl) 50 mg PO Q6 PRN PRN Reason: Extrapyramidal Symptoms Last Admin: 10/23/16 18:02 Dose: 50 mg Diphenhydramine HCl (Benadryl) 50 mg PO HS PRN PRN Reason: Sleep Last Admin: 10/12/16 21:20 Dose: 50 mg Doxepin HCl (Sinequan) 10 mg PO HS [facility] Last Admin: 10/23/16 21:01 Dose: 10 mg Folic Acid (Folic Acid) 1 mg PO DAILY [facility] Last Admin: 10/24/16 08:53 Dose: 1 mg Gabapentin (Neurontin) 400 mg PO HS [facility] Last Admin: 10/23/16 21:00 Dose: 400 mg Haloperidol (Haldol) 5 mg PO Q4 PRN PRN Reason: Agitation Last Admin: 10/23/16 18:02 Dose: 5 mg Haloperidol Lactate (Haldol) 5 mg IM Q4 PRN PRN Reason: Agitation, Unable to Take PO Ibuprofen (Motrin Tab) 600 mg PO Q6 PRN PRN Reason: Pain, moderate (4-7) Last Admin: 10/24/16 08:55 Dose: 600 mg Lidocaine (Lidoderm) 1 ea TD DAILY [facility] Last Admin: 10/24/16 08:56 Dose: 1 ea Magnesium Hydroxide (Milk Of Magnesia) 30 ml PO HS PRN PRN Reason: Constipation Nicotine (Nicoderm Cq) 1 patch TD DAILY [facility] Last Admin: 10/24/16 08:59 Dose: 1 patch Quetiapine Fumarate (Seroquel) 50 mg PO [facility] Last Admin: 10/23/16 21:00 Dose: 50 mg Sertraline HCl (Zoloft) 100 mg PO DAILY [facility] Last Admin: 10/24/16 08:53 Dose: 100 mg Thiamine HCl (Vitamin B1 Tab) 100 mg PO DAILY [facility] Last Admin: 10/24/16 08:53 Dose: 100 mg Tramadol HCl (Ultram) 50 mg PO Q6 PRN PRN Reason: Pain, severe (8-10) Last Admin: 10/21/16 21:30 Dose: 50 mg - Labs Labs: 10/07/16 02:57 10/09/16 07:25
[2016-10-24 07:13] LABS: CHOLESTEROL 159 mg/dL (0-199)
[2016-10-24] MEDS: Lidocaine 5% Patch TD SCH (08:56)
[2016-10-24 08:59] VITALS: PULSE 74
[2016-10-24 10:59] VITALS: RESP 17; TEMP 97.7
--- NOTE | 2016-10-24 14:16 | PCM.PYCHPN ---
Psychiatric Progress Note - Psychiatric Progress Note Patient seen today, length of contact: discussed with team Patient Chief Complaint: i can go tomorrow Problems Identified/Issues Discussed: pt reports depression is improved. he is frustrated waiting for inpt rehab. thinks he can stay sober out of the hospital while he waits for rehab. Medical Problems: see hpi, followed by family guerra Medication Change: No ( ) Medical Record Reviewed: Yes Mental Status Examination - Cognitive Function Orientation: Person, Place, Situation, Time Memory: Intact Attention: WNL Concentration: WNL Association: WNL Fund of Knowledge: WNL Decription of patient's judgement and insights: fair insight. good judgment - Mood Mood: Neutral - Affect Affect: Broad - Speech Speech: Appropriate - Formal Thought Process Formal Thought Process: No Impairment Psychotic Thoughts and Behaviors: denies a/v hallucinations - Suicidal Ideation Suicidal Ideation: No - Homicidal Ideation Homicidal Ideation: No Goal/Treatment Plan - Goal/Treatment Plan Need for Continued Stay: Remain at risks for inpatient hospitalization, Discharge may exacerbated symptoms Progress Toward Problem(s) and Goals/Treatment Plan: alcohol dependence major depression will continue with current treatment and likely discharge tomorrow add flexeril prn for back pain refered to inpt rehab programs followed by family guerra who is ordering medical testing Estimated Date of D/C: 10/17/16
[2016-10-24] MEDS: Alum-Mag Hydrox-Simethicone Susp (30 mL) PO PRN (19:40)
[2016-10-25] MEDS: Alum-Mag Hydrox-Simethicone Susp (30 mL) PO PRN (06:28)
[2016-10-25] MEDS ORDERED: Pantoprazole 40 mg EC Tab PO ONE (08:25)
[2016-10-25] MEDS: Lidocaine 5% Patch TD SCH (09:53)
[2016-10-25 09:56] VITALS: BP 120/76
--- NOTE | 2016-10-25 11:05 | PCM.PYCHDC ---
Mental Status Examination - Mental Status Examination Orientation: Person, Place, Situation, Time Memory: Intact Mood: Neutral Affect: Broad Speech: Appropriate Attention: WNL Concentration: WNL Association: WNL Fund of Knowledge: WNL Formal Thought Process: No Impairment Description of patient's judgement and insight: fair insight. good judgment Psychotic Thoughts and Behaviors: denies a/v hallucinations Suicidal Ideation: No Current Homicidal Ideation?: No Plan: pt denies any suicidal or homicidal thoughts Discharge Summary - Discharge Note Reason for Hospitalization: pt reported suicidal/homicidal thoughts when in the er. pt struggling to remain sober despite frequent hospitalizations Psychiatric History (includes Medical, Family, Personal Hx): history of alcohol dependence and major depression Consultations:: List each consultation separately and include: 1. Reason for request. 2. Findings. 3. Follow-up Consultations: followed by family medicine who managed his medical issues Summary of Hospital Course include:: 1. Description of specific treatment plan utilized for patients during their course of treatmen. 2. Summarize the time- course for resolution of acute symptoms and/or regressed behaviors. 3. Describe issues identified and worked on during hospitalization. 4. Describe medication utilized. 5. Describe medical problems identified and treated. 6. Reassessment of suicide risk Summary of Hospital Course: pt was discharged from [facility] earlier in the week. pt started consuming alcohol again. pt broke property in his room at the [facility] and a neighbor called with concerns. pt reports he is depressed, hopeless and feeling ill. he vomited during the assessment. he is now agreeing to be referred for alcohol treatment. he reports suicidal thoughts, depressed mood, voices at night. reports feeling hopeless, helpless. denies manic symptoms. pt has few supports. pt was admitted to [facility] and oriented to the unit. he was followed by family medicine who ordered testing in regard to his c/o testicular pain. there were not acute surgical issues. he was treated by family medicine who will follow up with the patient after discharge. the patient was restarted on the psychiatric medications he had taken previously. he noted an improvement in his mood. he was referred to several in rehab programs for substance abuse, but was not accepted by the programs, with the exception of [facility] who placed pt on a waiting list. he was agreeable to be referred to outpatient treatment after discharge and agreed to call [facility] daily to check for bed availability. at the time of discharge pt was attending groups, socializing with peers and was denying any suicidal or homicidal thoughts. - Final Diagnosis (DSM 5) Condition upon Discharge: FAIR DSM 5: alcohol dependence major depression recurrent moderate Disposition: HOME/ ROUTINE Follow-up Treatment Plan: follow up with aftercare appointments as directed take medications as prescribed do not use alcohol, tobacco or other illicit substances call 911 if any suicidal or homicidal thoughts attend AA meetings daily. Prescriptions/Medication Reconciliation: Albuterol HFA [Ventolin HFA 90 mcg/actuation (8 g)] 1 puff IH Q6H PRN #1 inhaler PRN Reason: Shortness Of Breath amLODIPine [Norvasc] 10 mg PO DAILY #30 tab Aspirin [Aspirin Chewable] 81 mg PO DAILY #30 Atorvastatin [Lipitor] 20 mg PO DAILY #30 tab Clotrimazole 1% Cream [Lotrimin 1% CREAM] 1 applic TOP BID 14 Days Cyclobenzaprine [Flexeril] 10 mg PO TID PRN #45 tab PRN Reason: Muscle Spasm Doxepin [Sinequan] 10 mg PO HS #30 Folic Acid 1 mg PO DAILY #30 Gabapentin [Neurontin] 400 mg PO HS #30 Lidocaine 5% [Lidoderm] 1 ea TD DAILY #30 patch Nicotine 14 mg/24 hr [Nicoderm CQ] 1 patch TD DAILY #30 patch QUEtiapine [SEROquel] 50 mg PO HS #30 Sertraline [Zoloft] 100 mg PO DAILY #30 Thiamine [Vitamin B1 Tab] 100 mg PO DAILY #30 tab traMADol [Ultram] 50 mg PO Q6 PRN #30 tab PRN Reason: Pain, Severe (8-10) - Smoking Cessation Smoking Cessation Medication prescribed: Yes - Antipsychotic Medications Pt discharged on 2 or more routine antipsychotic medications: No
--- NOTE | 2016-10-25 11:39 | CP.PCM.PN ---
Subjective - Date & Time of Evaluation Date of Evaluation: 10/25/16 Time of Evaluation: 08:25 - Subjective Subjective: Patient was seen and examined at bedside. Patient reports that he feels well, and denies chest pain, SOB, nausea, vomiting, abdominal pain at this evaluation. Patient had an uneventful night. Objective - Vital Signs/Intake and Output Vital Signs (last 24 hours): Temp Pulse Resp BP Pulse Ox 97.7 F 74 17 120/76 98 10/24/16 09:00 10/24/16 09:00 10/24/16 09:00 10/25/16 09:55 10/11/16 16:52 - Medications Medications: Current Medications Acetaminophen (Tylenol 325mg Tab) 650 mg PO Q4 PRN PRN Reason: Pain, moderate (4-7) Last Admin: 10/07/16 13:28 Dose: 650 mg Al Hydrox/Mg Hydrox/Simethicone (Maalox Plus 30 Ml) 30 ml PO Q4 PRN PRN Reason: Dyspepsia Last Admin: 10/25/16 06:28 Dose: 30 ml Albuterol (Ventolin Hfa 90 Mcg/Actuation (8 G)) 1 puff IH Q6H PRN PRN Reason: Shortness of Breath Last Admin: 10/24/16 10:09 Dose: 1 puff Amlodipine Besylate (Norvasc) 10 mg PO DAILY [facility] Last Admin: 10/25/16 09:55 Dose: 10 mg Aspirin (Aspirin Chewable) 81 mg PO DAILY [facility] Last Admin: 10/25/16 09:53 Dose: 81 mg Atorvastatin Calcium (Lipitor) 20 mg PO DAILY [facility] Last Admin: 10/25/16 09:54 Dose: 20 mg Clotrimazole (Lotrimin 1% Cream) 1 applic TOP BID [facility] Last Admin: 10/25/16 09:54 Dose: 1 % Cyclobenzaprine HCl (Flexeril) 10 mg PO TID PRN PRN Reason: Muscle spasm Last Admin: 10/23/16 20:27 Dose: 10 mg Diphenhydramine HCl (Benadryl) 50 mg IM Q6 PRN PRN Reason: Extrapyramidal S/S Unable PO Diphenhydramine HCl (Benadryl) 50 mg PO Q6 PRN PRN Reason: Extrapyramidal Symptoms Last Admin: 10/24/16 13:12 Dose: 50 mg Diphenhydramine HCl (Benadryl) 50 mg PO HS PRN PRN Reason: Sleep Last Admin: 10/12/16 21:20 Dose: 50 mg Doxepin HCl (Sinequan) 10 mg PO HS [facility] Last Admin: 10/24/16 21:00 Dose: 10 mg Folic Acid (Folic Acid) 1 mg PO DAILY [facility] Last Admin: 10/25/16 09:53 Dose: 1 mg Gabapentin (Neurontin) 400 mg PO HS [facility] Last Admin: 10/24/16 21:00 Dose: 400 mg Haloperidol (Haldol) 5 mg PO Q4 PRN PRN Reason: Agitation Last Admin: 10/24/16 15:20 Dose: 5 mg Haloperidol Lactate (Haldol) 5 mg IM Q4 PRN PRN Reason: Agitation, Unable to Take PO Ibuprofen (Motrin Tab) 600 mg PO Q8H [facility] Last Admin: 10/25/16 09:54 Dose: 600 mg Lidocaine (Lidoderm) 1 ea TD DAILY [facility] Last Admin: 10/25/16 09:53 Dose: 1 ea Magnesium Hydroxide (Milk Of Magnesia) 30 ml PO HS PRN PRN Reason: Constipation Nicotine (Nicoderm Cq) 1 patch TD DAILY [facility] Last Admin: 10/25/16 09:54 Dose: 1 patch Quetiapine Fumarate (Seroquel) 50 mg PO HS [facility] Last Admin: 10/24/16 21:00 Dose: 50 mg Sertraline HCl (Zoloft) 100 mg PO DAILY [facility] Last Admin: 10/25/16 09:55 Dose: 100 mg Thiamine HCl (Vitamin B1 Tab) 100 mg PO DAILY [facility] Last Admin: 10/25/16 09:55 Dose: 100 mg Tramadol HCl (Ultram) 50 mg PO Q6 PRN PRN Reason: Pain, severe (8-10) Last Admin: 10/21/16 21:30 Dose: 50 mg - Labs Labs: 10/07/16 02:57 10/09/16 07:25 - Additional Findings Additional findings: Constitutional Appears: Non-toxic, No Acute Distress - Head Exam Head Exam: NORMAL INSPECTION - Eye Exam Eye Exam: PERRL - ENT Exam ENT Exam: Mucous Membranes Moist - Respiratory Exam Respiratory Exam: Clear to Ausculation Bilateral, NORMAL BREATHING PATTERN - Cardiovascular Exam Cardiovascular Exam: REGULAR RHYTHM, +S1, +S2. absent: Gallop - GI/Abdominal Exam GI & Abdominal Exam: Soft, Normal Bowel Sounds. absent: Distended, Tenderness - Extremities Exam Extremities Exam: Full ROM, Normal Capillary Refill. absent: Tenderness - Neurological Exam Neurological Exam: Alert, Awake Assessment and Plan - Assessment and Plan (Free Text) Assessment: 56 yo male with htn, copd, depression, etoh, multiple pancreatitis and schizoaffective disorder admitted to Psych unit for crisis evaluation, further treatment and stabilization of depression. Plan: Right testicular pain -Asymptomatic at this time -Hydrocele vs referred pain vs idiopathic -UA neg -Testicle US: small b/l hydrocele. rest WNL(please read full report) -s/p L2 vertebroplasty -Cont Motrin 600mg PRN -Protonix 40 mg PO once Depression: -per psych management Essential Hypertension -stable -c/w Amlodipine 10 mg daily -Monitor for amlodipine related side effects h/o Pancreatitis -C/o abdominal pain w/o N/V, and tolerating PO -Lipase WNL Hyperlipidemia - c/w statin therapy - Will repeat lipid panel and will start Fenofibrate if persistent elevated Hx of L2 compression fracture (atraumatic), s/p kyphoplasty on 09/20/16 - Lidocaine 5% patch daily - c/w home Gabapentin 400 mg PO HS - c/w fosamax PO weekly - vitamin D 2000 IU daily ETOH abuse/depression - management per psych H/O Asthma -c/w home Albuterol HFA PRN DVT prophylaxis - ambulating, no previous history of DVT or/and Thrombophilia
== END 2016-10-25 12:30 | disposition home or self-care (01) | DRG 430 ==
LOC: H.ER 17:25 → H.EROBSV 17:30 → OBSVTOIN 10-07 02:51 → H.ERHOLD 10-07 02:51 → H.PSYCH 10-07 04:38
PROVIDERS: ADMIT Psychiatry & Neurology Psychiatry; ATTEND Psychiatry & Neurology Psychiatry
PROC: GZHZZZZ Group Psychotherapy (ICD-10-PCS; principal; 2016-10-07)
PROC: GZ58ZZZ Individual Psychotherapy, Cognitive-Behavioral (ICD-10-PCS; 2016-10-07)
DX: F33.1 Major depressive disorder, recurrent, moderate (principal); R45.851 Suicidal ideations; E87.6 Hypokalemia; F25.8 Other schizoaffective disorders; J44.9 Chronic obstructive pulmonary disease, unspecified; I10 Essential (primary) hypertension; B35.6 Tinea cruris; D64.9 Anemia, unspecified; F10.229 Alcohol dependence with intoxication, unspecified; K29.20 Alcoholic gastritis without bleeding; E78.00 Pure hypercholesterolemia, unspecified; Y90.8 Blood alcohol level of 240 mg/100 ml or more; N43.3 Hydrocele, unspecified; K21.9 Gastro-esophageal reflux disease without esophagitis; J45.909 Unspecified asthma, uncomplicated; E78.5 Hyperlipidemia, unspecified; G89.29 Other chronic pain; M54.5 Low back pain; F41.9 Anxiety disorder, unspecified; F17.210 Nicotine dependence, cigarettes, uncomplicated; Z87.311 Personal history of (healed) other pathological fracture

== ENCOUNTER 2016-10-27 23:25 | Emergency (ER) | payer MEDICAID, OTHER ==
[2016-10-27 23:26] VITALS: BMI 33.3
[2016-10-27 23:48] VITALS: BP 124/75; PULSE 91; RESP 16; TEMP 98.3; O2SAT 100
--- NOTE | 2016-10-27 23:58 | ED PDOC ---
HPI: General Adult Time Seen by Provider: 10/27/16 23:47 Chief Complaint (Nursing): Bite Chief Complaint (Provider): "bug bite" History Per: Patient History/Exam Limitations: no limitations Onset/Duration Of Symptoms: Mins Have you had recent travel within the past 21 days to any of the following countries: [place], [place], [place] or [place]?: No Current Symptoms Are (Timing): Still Present Additional Complaint(s): 56yo male presents to the ED with c/o "bug bite" to right foot. Patient states he was lying down and felt a pinch to his right foot. Denies any other medical complaints. Past Medical History Reviewed: Historical Data, Nursing Documentation, Vital Signs Vital Signs: Last Vital Signs Temp 98.3 F 10/27/16 23:28 Pulse 91 H 10/27/16 23:28 Resp 16 10/27/16 23:28 BP 124/75 10/27/16 23:28 Pulse Ox 100 10/27/16 23:28 - Medical History PMH: Anemia, Anxiety, Asthma, Bipolar Disorder, COPD, Depression, Gastritis ( secondary to ETOH), GERD, HTN, Hypercholesterolemia, Pancreatitis (secondary to ETOH), Schizophrenia, Seizures (secondary to ETOH withdrawal), Chronic Pain ( low back pain ) Denies: Alzheimer's Disease, Atrial Fibrillation, Bronchitis, Cardia Arrhythmia, CHF, Dementia, Diabetes, Emphysema, Hepatitis, HIV, Migraine, Mitral Valve Prolapse, Multiple Sclerosis, Parkinson's Disease, Peripheral Edema , Pneumonia, Pulmonary Embolism, Chronic Kidney Disease, Sexually Transmitted Disease, Sleep Apnea - Surgical History Surgical History: No Surg Hx Denies: Pacemaker - Family History Family History: States: Diabetes - Immunization History Hx Tetanus Toxoid Vaccination: Yes (As per patient, TDaP uptodate ( about 3 years ago)) Hx Influenza Vaccination: No Hx Pneumococcal Vaccination: No - Home Medications Home Medications: Ambulatory Orders Medication Instructions Recorded Albuterol HFA [Ventolin HFA 90 1 puff IH Q6H PRN #1 inhaler 10/25/16 mcg/actuation (8 g)] Aspirin [Aspirin Chewable] 81 mg PO DAILY #30 10/25/16 Atorvastatin [Lipitor] 20 mg PO DAILY #30 tab 10/25/16 Clotrimazole 1% Cream [Lotrimin 1% 1 applic TOP BID 14 Days 10/25/16 CREAM] Cyclobenzaprine [Flexeril] 10 mg PO TID PRN #45 tab 10/25/16 Doxepin [Sinequan] 10 mg PO HS #30 10/25/16 Folic Acid 1 mg PO DAILY #30 10/25/16 Gabapentin [Neurontin] 400 mg PO HS #30 10/25/16 Lidocaine 5% [Lidoderm] 1 ea TD DAILY #30 patch 10/25/16 Nicotine 14 mg/24 hr [Nicoderm CQ] 1 patch TD DAILY #30 patch 10/25/16 QUEtiapine [SEROquel] 50 mg PO HS #30 10/25/16 Sertraline [Zoloft] 100 mg PO DAILY #30 10/25/16 Thiamine [Vitamin B1 Tab] 100 mg PO DAILY #30 tab 10/25/16 amLODIPine [Norvasc] 10 mg PO DAILY #30 tab 10/25/16 traMADol [Ultram] 50 mg PO Q6 PRN #30 tab 10/25/16 - Allergies Allergies/Adverse Reactions: Allergies Allergy/AdvReac Type Severity Reaction Status Date / Time No Known Allergies Allergy Verified 09/23/16 13:49 Review of Systems ROS Statement: Except As Marked, All Systems Reviewed And Found Negative Constitutional: Positive for: Other ("bug bite" to right foot ) Physical Exam - Reviewed Nursing Documentation Reviewed: Yes Vital Signs Reviewed: Yes - Physical Exam Appears: Positive for: Well, No Acute Distress Head Exam: Positive for: ATRAUMATIC, NORMAL INSPECTION, NORMOCEPHALIC Skin: Positive for: Normal Color, Warm, Dry Extremity: Positive for: Normal ROM, Other (RLE: no swelling, no erythema, area circled by EMS w/ dried blood and abrasion in center of [place] ). Negative for : Tenderness, Deformity Neurologic/Psych: Positive for: Alert, Oriented - ECG O2 Sat by Pulse Oximetry: 100 Pulse Ox Interpretation: Normal (RA) Medical Decision Making Medical Decision Makin: Impression: abrasion Dried blood removed with ChloraPrep. Abrasion covered with bandage. Patient stable for d/c. Advised to return to the ED with any worsening or concerning symptoms. Scribe Attestation: Documented by Mary Carmen Castillo acting as a scribe for Anthony Cuenca MD. Provider Scribe Attestation: All medical record entries made by the Scribe were at my direction and personally dictated by me. I have reviewed the chart and agree that the record accurately reflects my personal performance of the history, physical exam, medical decision making, and the department course for this patient. I have also personally directed, reviewed, and agree with the discharge instructions and disposition. Disposition - Clinical Impression Clinical Impression: Abrasion - Patient ED Disposition Is Patient to be Admitted: No - Disposition Referrals: [facility] [Outside] Disposition: Routine/Home Disposition Time: 23:55 Condition: STABLE Instructions: Abrasion (ED)
== END 2016-10-28 00:03 | disposition home or self-care (01) ==
LOC: H.ER 23:25
DX: T14.8 Other injury of unspecified body region (principal); W57.XXXA Bitten or stung by nonvenomous insect and other nonvenomous arthropods, initial encounter; Y92.89 Other specified places as the place of occurrence of the external cause; E78.00 Pure hypercholesterolemia, unspecified; F20.9 Schizophrenia, unspecified; F31.9 Bipolar disorder, unspecified; F41.9 Anxiety disorder, unspecified; I10 Essential (primary) hypertension; J44.9 Chronic obstructive pulmonary disease, unspecified; J45.909 Unspecified asthma, uncomplicated; K21.9 Gastro-esophageal reflux disease without esophagitis; K85.90 Acute pancreatitis without necrosis or infection, unspecified; M54.5 Low back pain; Z79.82 Long term (current) use of aspirin; Z87.19 Personal history of other diseases of the digestive system

== ENCOUNTER 2016-11-11 15:24 | Observation (INO) | payer MEDICAID, OTHER ==
[2016-11-11 15:25] VITALS: BMI 33.3
[2016-11-11 15:29] VITALS: BP 132/79; PULSE 95; RESP 18; TEMP 98.6; O2SAT 96
[2016-11-11] MEDS ORDERED: Multivitamin (MVI) 10 ML, Thiamine 100 MG, Folic Acid 1 MG in Sodium Chloride 0.9% 1,00... IV ONE (15:39)
--- NOTE | 2016-11-11 15:49 | ED PDOC ---
HPI: Back Time Seen by Provider: 11/11/16 15:31 Chief Complaint (Nursing): Back Pain Chief Complaint (Provider): Back Pain History Per: Patient History/Exam Limitations: intoxication Current Symptoms Are (Timing): Still Present Additional Complaint(s): Ryley Torres is a 56 y/o male well known to the ED who presents here today by EMS for evaluation of alcohol intoxication and a chief complaint of lower back pain. Patient has an associated drug seeking behavior. Reports he slipped in the bathroom and admits to drinking. Denies any weakness, numbness, or head injury. Of note patient reports he ran out of regular pain medications 1 week ago, and history may be unreliable due to alcohol intoxication. Past Medical History Reviewed: Historical Data, Nursing Documentation, Vital Signs Vital Signs: Last Vital Signs Temp 98.6 F 11/11/16 15:26 Pulse 95 H 11/11/16 15:26 Resp 18 11/11/16 15:26 BP 132/79 11/11/16 15:26 Pulse Ox 96 11/11/16 15:26 - Medical History PMH: Anemia, Anxiety, Asthma, Back Problems, Bipolar Disorder, COPD, Depression , Gastritis (secondary to ETOH), GERD, HTN, Hypercholesterolemia, Pancreatitis ( secondary to ETOH), Schizophrenia, Seizures (secondary to ETOH withdrawal), Chronic Pain (low back pain ) Denies: Alzheimer's Disease, Atrial Fibrillation, Bronchitis, Cardia Arrhythmia, CHF, Dementia, Diabetes, Emphysema, Hepatitis, HIV, Migraine, Mitral Valve Prolapse, Multiple Sclerosis, Parkinson's Disease, Peripheral Edema , Pneumonia, Pulmonary Embolism, Chronic Kidney Disease, Sexually Transmitted Disease, Sleep Apnea - Surgical History Surgical History: Back Surgery (4 weeks ago) Denies: Pacemaker - Family History Family History: States: Diabetes - Social History Current smoker - smoking cessation education provided: Yes Ex-Smoker (has not smoked in the last 12 months): Yes Alcohol: > 2 Drinks/Day - Immunization History Hx Tetanus Toxoid Vaccination: Yes (As per patient, TDaP uptodate ( about 3 years ago)) Hx Influenza Vaccination: No Hx Pneumococcal Vaccination: No - Home Medications Home Medications: Ambulatory Orders Medication Instructions Recorded Albuterol HFA [Ventolin HFA 90 1 puff IH Q6H PRN #1 inhaler 10/25/16 mcg/actuation (8 g)] Aspirin [Aspirin Chewable] 81 mg PO DAILY #30 10/25/16 Atorvastatin [Lipitor] 20 mg PO DAILY #30 tab 10/25/16 Clotrimazole 1% Cream [Lotrimin 1% 1 applic TOP BID 14 Days 10/25/16 CREAM] Cyclobenzaprine [Flexeril] 10 mg PO TID PRN #45 tab 10/25/16 Doxepin [Sinequan] 10 mg PO HS #30 10/25/16 Folic Acid 1 mg PO DAILY #30 10/25/16 Gabapentin [Neurontin] 400 mg PO HS #30 10/25/16 Lidocaine 5% [Lidoderm] 1 ea TD DAILY #30 patch 10/25/16 Nicotine 14 mg/24 hr [Nicoderm CQ] 1 patch TD DAILY #30 patch 10/25/16 QUEtiapine [SEROquel] 50 mg PO HS #30 10/25/16 Sertraline [Zoloft] 100 mg PO DAILY #30 10/25/16 Thiamine [Vitamin B1 Tab] 100 mg PO DAILY #30 tab 10/25/16 amLODIPine [Norvasc] 10 mg PO DAILY #30 tab 10/25/16 traMADol [Ultram] 50 mg PO Q6 PRN #30 tab 10/25/16 - Allergies Allergies/Adverse Reactions: Allergies Allergy/AdvReac Type Severity Reaction Status Date / Time No Known Allergies Allergy Verified 11/11/16 15:26 Review of Systems ROS Statement: Except As Marked, All Systems Reviewed And Found Negative Musculoskeletal: Positive for: Back Pain. Negative for: Other (Head injury) Neurological: Positive for: Other (Intoxication, Drug seeking behavor). Negative for: Weakness, Numbness Physical Exam - Reviewed Nursing Documentation Reviewed: Yes Vital Signs Reviewed: Yes - Physical Exam Appears: Positive for: Well, Non-toxic, No Acute Distress. Negative for: Uncomfortable (comfotrable (sleeping)) Head Exam: Positive for: ATRAUMATIC, NORMAL INSPECTION, NORMOCEPHALIC Skin: Positive for: Normal Color, Warm, Dry Eye Exam: Positive for: Normal appearance, EOMI, PERRL, Conjunctival injection ENT: Positive for: Normal ENT Inspection, Other (Alcohol smell on breath) Neck: Positive for: Normal, Painless ROM, Supple Back: Positive for: Normal Inspection, Other (Diffused lumbar spine and paraspinal tenderness to palpation) Extremity: Negative for: Pedal Edema, Deformity Neurologic/Psych: Positive for: Alert, Oriented, Other (5/5 strength in lower bilateral extremety. No Saddle anesthesia. Sleepy but arrousable. Slurred speech ) - Laboratory Results Result Diagrams: 11/11/16 16:10 11/11/16 16:10 - ECG O2 Sat by Pulse Oximetry: 96 (RA) Pulse Ox Interpretation: Normal Medical Decision Making Medical Decision Making: Time: 1531: Initial Impression: Lower chronic back pain, and alcohol intoxication. Initial Plan: * Acetaminophen * Alcohol serum * CMP * Drug screen URI * Magnesium STAT * Phosphorous STAT * Salicylate * ED U-Dip * CBC * Sodium chloride IV 1000ml * Multivitamin 10ml * Thiamine 100mg * Folic acid 1mg * Toradol 15mg * IV insertion STAT * Glucose Blood POC STAT * Re-Eval * Placed in obs for prolonged observation for alcohol intoxication 1800 Pt sleeping comfortably. NO signs of distress. Labs demonstrated elevated BAL, otherwise no clinically significant lab abnormalities. 1900 Pt wants to go home. In no distress. Scribe Attestation: Documented by Charlotte Goldman acting as a scribe for Jeannine Brunner MD. Provider Scribe Attestation: All medical record entries made by the Scribe were at my direction and personally dictated by me. I have reviewed the chart and agree that the record accurately reflects my personal performance of the history, physical exam, medical decision making, and the department course for this patient. I have also personally directed, reviewed, and agree with the discharge instructions and disposition. Disposition - Clinical Impression Clinical Impression: Back pain, Alcohol intoxication Counseled Patient/Family Regarding: Studies Performed, Need For Followup - Disposition Disposition Time: 15:30 Condition: IMPROVED
[2016-11-11 17:09] LABS: BASO % 0.5 % (0.0-2.0); EOS # 0.1 K/uL (0.0-0.7); EOS % 1.3 % (0.0-4.0); HEMATOCRIT 42.7 % (35.0-51.0); LYMPH # 5.3 K/uL (1.0-4.3); LYMPH % 60.3 % (20.0-40.0); MEAN CELL VOLUME 86.4 fl (80.0-94.0); MEAN CORPUSCULAR HEMOGLOBIN 29.9 pg (27.0-31.0); MEAN CORPUSCULAR HGB CONC 34.6 g/dL (33.0-37.0); MEAN PLATELET VOLUME 7.8 fl (7.2-11.7); MONO # 0.4 K/uL (0.0-0.8); MONO % 4.1 % (0.0-10.0); NEUT % 33.8 % (50.0-75.0); NRBC % 0.3 % (0.0-0.0); RED CELL DISTRIBUTION WIDTH 15.2 % (11.5-14.5); WHITE BLOOD COUNT 8.8 K/uL (4.8-10.8)
[2016-11-11 17:23] LABS: ALB/GLOB RATIO 1.3 (1.0-2.1); ALKALINE PHOSPHATASE 270 U/L (38-126); ALT/SGPT 161 U/L (21-72); AST/SGOT 156 U/L (17-59); BILIRUBIN,TOTAL 0.7 mg/dl (0.2-1.3); BLOOD UREA NITROGEN 15 mg/dl (9-20); CALCIUM 8.4 mg/dL (8.4-10.2); CARBON DIOXIDE 23 mmol/L (22-30); CHLORIDE 100 mmol/L (98-107); GFR AFRICAN-AMERICAN > 60; GLUCOSE,RANDOM 95 mg/dL (75-110); MAGNESIUM 1.7 MG/DL (1.6-2.3); PHOSPHOROUS 2.7 mg/dl (2.5-4.5); POTASSIUM 3.9 MMOL/L (3.6-5.0); SODIUM 138 mmol/l (132-148); TOTAL PROTEIN 7.9 G/DL (6.3-8.2)
[2016-11-11 17:41] LABS: ALCOHOL SERUM 371 mg/dl (0-10)
== END 2016-11-11 19:39 | disposition home or self-care (01) ==
LOC: H.ER 15:24 → H.EROBSV 15:30
PROVIDERS: ADMIT Emergency Medicine; ATTEND Emergency Medicine
DX: F10.129 Alcohol abuse with intoxication, unspecified (principal); Y90.8 Blood alcohol level of 240 mg/100 ml or more; G89.29 Other chronic pain; M54.5 Low back pain; K29.20 Alcoholic gastritis without bleeding; K21.9 Gastro-esophageal reflux disease without esophagitis; E78.00 Pure hypercholesterolemia, unspecified; J44.9 Chronic obstructive pulmonary disease, unspecified; I10 Essential (primary) hypertension; D64.9 Anemia, unspecified; J45.909 Unspecified asthma, uncomplicated; F31.9 Bipolar disorder, unspecified; F20.9 Schizophrenia, unspecified; Z76.5 Malingerer [conscious simulation]; F17.200 Nicotine dependence, unspecified, uncomplicated

== ENCOUNTER 2016-11-25 15:26 | Observation (INO) | payer MEDICAID, OTHER ==
[2016-11-25 15:26] VITALS: BMI 33.3
[2016-11-25 15:33] VITALS: BP 120/79; PULSE 99; RESP 16; TEMP 98.1; O2SAT 95
--- NOTE | 2016-11-25 17:14 | ED PDOC ---
HPI: Psych/Substance Abuse Time Seen by Provider: 11/25/16 15:51 Chief Complaint (Nursing): Alcohol Ingestion Chief Complaint (Provider): Alcohol Ingestion History Per: Patient History/Exam Limitations: no limitations Onset/Duration Of Symptoms: Mins (prior to arrival) Current Symptoms Are (Timing): Still Present Modifying Factor(s): Alcohol Additional Complaint(s): Ryley Torres is 56 year old male with previous history of opium abuse and schizophrenia, who presents to the emergency department after he was brought in via EMS for ETOH intoxication. Stated that he is hearing voices that tells him to "do bad things" but unwilling to explain further and demands Ativan for his chronic back pain. Denies any suicidal ideation or homicidal ideation. PMD: none provided Past Medical History Reviewed: Historical Data, Nursing Documentation, Vital Signs Vital Signs: Last Vital Signs Temp 98.1 F 11/25/16 15:29 Pulse 99 H 11/25/16 15:29 Resp 16 11/25/16 15:29 BP 120/79 11/25/16 15:29 Pulse Ox 95 11/25/16 15:29 - Medical History PMH: Anemia, Anxiety, Asthma, Back Problems, Bipolar Disorder, COPD, Depression , Gastritis (secondary to ETOH), GERD, HTN, Hypercholesterolemia, Pancreatitis ( secondary to ETOH), Schizophrenia, Seizures (secondary to ETOH withdrawal), Chronic Pain (low back pain ) Denies: Alzheimer's Disease, Atrial Fibrillation, Bronchitis, Cardia Arrhythmia, CHF, Dementia, Diabetes, Emphysema, Hepatitis, HIV, Migraine, Mitral Valve Prolapse, Multiple Sclerosis, Parkinson's Disease, Peripheral Edema , Pneumonia, Pulmonary Embolism, Chronic Kidney Disease, Sexually Transmitted Disease, Sleep Apnea - Surgical History Surgical History: Back Surgery (4 weeks ago) Denies: Pacemaker - Family History Family History: States: Diabetes - Social History Current smoker - smoking cessation education provided: Yes (>10 cigarettes/day) Alcohol: Occasional Drugs: Denies - Immunization History Hx Tetanus Toxoid Vaccination: Yes (As per patient, TDaP uptodate ( about 3 years ago)) Hx Influenza Vaccination: No Hx Pneumococcal Vaccination: No - Home Medications Home Medications: Ambulatory Orders Medication Instructions Recorded Albuterol HFA [Ventolin HFA 90 1 puff IH Q6H PRN #1 inhaler 10/25/16 mcg/actuation (8 g)] Aspirin [Aspirin Chewable] 81 mg PO DAILY #30 10/25/16 Atorvastatin [Lipitor] 20 mg PO DAILY #30 tab 10/25/16 Clotrimazole 1% Cream [Lotrimin 1% 1 applic TOP BID 14 Days 10/25/16 CREAM] Cyclobenzaprine [Flexeril] 10 mg PO TID PRN #45 tab 10/25/16 Doxepin [Sinequan] 10 mg PO HS #30 10/25/16 Folic Acid 1 mg PO DAILY #30 10/25/16 Gabapentin [Neurontin] 400 mg PO HS #30 10/25/16 Lidocaine 5% [Lidoderm] 1 ea TD DAILY #30 patch 10/25/16 Nicotine 14 mg/24 hr [Nicoderm CQ] 1 patch TD DAILY #30 patch 10/25/16 QUEtiapine [SEROquel] 50 mg PO HS #30 10/25/16 Sertraline [Zoloft] 100 mg PO DAILY #30 10/25/16 Thiamine [Vitamin B1 Tab] 100 mg PO DAILY #30 tab 10/25/16 amLODIPine [Norvasc] 10 mg PO DAILY #30 tab 10/25/16 traMADol [Ultram] 50 mg PO Q6 PRN #30 tab 10/25/16 - Allergies Allergies/Adverse Reactions: Allergies Allergy/AdvReac Type Severity Reaction Status Date / Time No Known Allergies Allergy Verified 11/25/16 15:28 Review of Systems ROS Statement: Except As Marked, All Systems Reviewed And Found Negative Musculoskeletal: Positive for: Back Pain (chronic) Psych: Positive for: Other (hearing voices). Negative for: Suicidal ideation ( or homicidal ideation) Physical Exam - Reviewed Nursing Documentation Reviewed: Yes Vital Signs Reviewed: Yes - Physical Exam Appears: Positive for: Well, Non-toxic, Uncomfortable Head Exam: Positive for: ATRAUMATIC, NORMAL INSPECTION, NORMOCEPHALIC Skin: Positive for: Normal Color, Warm, Dry Back: Positive for: Vertebral Tenderness. Negative for: L CVA Tenderness, R CVA Tenderness Extremity: Negative for: Other (straight leg raise) Neurologic/Psych: Positive for: Alert, chemical laboratory scientist II-XII (intact), Oriented - Laboratory Results Result Diagrams: 11/25/16 17:25 11/25/16 17:30 - ECG O2 Sat by Pulse Oximetry: 95 (RA) Pulse Ox Interpretation: Normal Medical Decision Making Medical Decision Making: Initial Impression: ETOH intoxication Initial Plan: * Labs * Drug screen * Toradol 30mg IM * Reevaluate Time: 17:25 --Upon reevaluation, patient states he has suicidal ideation and had planned to jump in front of moving vehicle earlier before police intervened. He reports hearing his talking to him and states, "I can't take it anymore". --Crisis Evaluation --1:1 observation for suicidal prevention --Admit to hospital for observation until clincaly sobriety and crisis eval pln: ptis stable for d.c Scribe Attestation: Documented by Lynette Perez, acting as a scribe for Marilou Lombardi PA-C. Provider Scribe Attestation: All medical record entries made by the Scribe were at my direction and personally dictated by me. I have reviewed the chart and agree that the record accurately reflects my personal performance of the history, physical exam, medical decision making, and the department course for this patient. I have also personally directed, reviewed, and agree with the discharge instructions and disposition. ED OBSERVATION Date of observation admission: 11/25/16 Time of observation admission: 17:19 - Observation admission statement Patient is being placed in observation because:: Suicial ideation - Goals of Observation Goals of observation are:: crisis evaluation for hospital admittance - Progress Note Progress Note: 11/25/16 22:05 PT is stable, clincally sober and will be d.c with alcohol d/o under MD leon Disposition - Clinical Impression Clinical Impression: Alcohol intoxication - Patient ED Disposition Is Patient to be Admitted: No Counseled Patient/Family Regarding: Need For Followup - Disposition Disposition: Routine/Home Disposition Time: 22:06 Condition: IMPROVED
[2016-11-25 17:36] LABS: HEMATOCRIT 37.3 % (35.0-51.0); MEAN CELL VOLUME 88.9 fl (80.0-94.0); MEAN CORPUSCULAR HEMOGLOBIN 30.6 pg (27.0-31.0); MEAN CORPUSCULAR HGB CONC 34.4 g/dL (33.0-37.0); RED CELL DISTRIBUTION WIDTH 17.2 % (11.5-14.5); WHITE BLOOD COUNT 8.1 K/uL (4.8-10.8)
[2016-11-25 18:38] LABS: ALB/GLOB RATIO 1.4 (1.0-2.1); ALKALINE PHOSPHATASE 187 U/L (38-126); ALT/SGPT 109 U/L (21-72); AST/SGOT 159 U/L (17-59); BILIRUBIN,TOTAL 0.9 mg/dl (0.2-1.3); BLOOD UREA NITROGEN 5 mg/dl (9-20); CALCIUM 9.3 mg/dL (8.4-10.2); CARBON DIOXIDE 23 mmol/L (22-30); CHLORIDE 104 mmol/L (98-107); GFR AFRICAN-AMERICAN > 60; GLUCOSE,RANDOM 106 mg/dL (75-110); POTASSIUM 2.7 MMOL/L (3.6-5.0); SODIUM 141 mmol/l (132-148); TOTAL PROTEIN 7.8 G/DL (6.3-8.2)
== END 2016-11-25 22:15 | disposition home or self-care (01) ==
LOC: H.ER 15:26 → H.EROBSV 17:20
PROVIDERS: ADMIT Emergency Medicine; ATTEND Emergency Medicine
DX: F10.129 Alcohol abuse with intoxication, unspecified (principal); E78.00 Pure hypercholesterolemia, unspecified; F31.9 Bipolar disorder, unspecified; I10 Essential (primary) hypertension; J44.9 Chronic obstructive pulmonary disease, unspecified; K21.9 Gastro-esophageal reflux disease without esophagitis; M54.5 Low back pain; D64.9 Anemia, unspecified; F32.9 Major depressive disorder, single episode, unspecified; F41.9 Anxiety disorder, unspecified; R56.9 Unspecified convulsions; F17.210 Nicotine dependence, cigarettes, uncomplicated; F20.9 Schizophrenia, unspecified

== ENCOUNTER 2016-11-28 16:43 | Observation (INO) | payer OTHER ==
[2016-11-28 16:50] VITALS: RESP 20; TEMP 98.7; BMI 21.5
[2016-11-28] MEDS ORDERED: Albuterol-Ipratrop 3 mg / 0.5 (3 ml) UD INH STA (17:33)
[2016-11-28 18:03] LABS: BASO # 0.2 K/uL (0.0-0.2); EOS # 0.1 K/uL (0.0-0.7); EOS % 1.7 % (0.0-4.0); HEMATOCRIT 38.8 % (35.0-51.0); LYMPH # 4.3 K/uL (1.0-4.3); LYMPH % 54.9 % (20.0-40.0); MEAN CELL VOLUME 89.9 fl (80.0-94.0); MEAN CORPUSCULAR HEMOGLOBIN 30.9 pg (27.0-31.0); MEAN CORPUSCULAR HGB CONC 34.4 g/dL (33.0-37.0); MEAN PLATELET VOLUME 6.8 fl (7.2-11.7); MONO # 0.3 K/uL (0.0-0.8); MONO % 3.3 % (0.0-10.0); NEUT % 38.1 % (50.0-75.0); NRBC % 0.2 % (0.0-0.0); RED CELL DISTRIBUTION WIDTH 17.9 % (11.5-14.5); WHITE BLOOD COUNT 7.9 K/uL (4.8-10.8)
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
[2016-11-28 18:11] VITALS: BP 130/80; PULSE 90
[2016-11-28 18:18] VITALS: O2SAT 96
[2016-11-28 18:21] LABS: ALB/GLOB RATIO 1.5 (1.0-2.1); ALKALINE PHOSPHATASE 190 U/L (38-126); ALT/SGPT 116 U/L (21-72); AST/SGOT 170 U/L (17-59); BILIRUBIN,TOTAL 0.5 mg/dl (0.2-1.3); BLOOD UREA NITROGEN 8 mg/dl (9-20); CALCIUM 8.8 mg/dL (8.4-10.2); CARBON DIOXIDE 24 mmol/L (22-30); CHLORIDE 107 mmol/L (98-107); GFR AFRICAN-AMERICAN > 60; GLUCOSE,RANDOM 102 mg/dL (75-110); LIPASE 382 U/L (23-300); POTASSIUM 3.4 MMOL/L (3.6-5.0); SODIUM 145 mmol/l (132-148); TOTAL PROTEIN 8.2 G/DL (6.3-8.2)
[2016-11-28 18:30] LABS: ALCOHOL SERUM 348 mg/dl (0-10)
--- NOTE | 2016-11-28 19:23 | ED PDOC ---
- Laboratory Results Result Diagrams: 11/28/16 17:59 11/28/16 18:00 - ECG O2 Sat by Pulse Oximetry: 96 Medical Decision Making Medical Decision Makin:00 Pt signed out to me by Dr. Leticia MD. Pending clinical sobriety, CT Lumbar Spine, and crisis evaluation. CT LUMBAR SPINE FINDINGS : Vertebrae: L1 is normal in height. There is an old compression fracture of L2. There is a vertebroplasty at L2. L3, L4 and L5 are normal in height. There is minimal retrolisthesis L3 on L4, L4 on L5 and L5 on S1. There are small degenerative osteophytes at multiple levels.Facet joints align anatomically. There is degenerative facet disease at multiple levels. Discs/spinal canal/neural foramina: There is L1/L2 disc space narrowing greatest posteriorly. There is L2/L3 disc space narrowing greatest posteriorly. There is mild lateral disc bulging. There is L3/L4 disc base narrowing greatest posteriorly with disc bulging. There is L4/L5 disc space narrowing with disc bulging. There is severe disc space narrowing L5/S1. There are degenerative spurs posterior laterally at L5/S1. Soft tissues: unremarkable Vasculature: There are vascular calcifications. Liver: There is fatty infiltration of the liver. Kidneys and ureters: Right kidney is in the flank. Left kidney is in the pelvis. IMPRESSION: Old L2 compression fracture status post vertebroplasty; multilevel degenerative change 21:19 Pt is currently not suicidal and not hearing voices. Crisis went in to evaluate him but he doesn't want to be evaluateed. Pt shows stable vitals and is ambulating with steady gait. Condition is stable for discharge. Documented by Phuong Eckert, acting as a scribe for Denae Chun MD. All medical record entries made by the Scribe were at my direction and personally dictated by me. I have reviewed the chart and agree that the record accurately reflects my personal performance of the history, physical exam, medical decision making, and the department course for this patient. I have also personally directed, reviewed, and agree with the discharge instructions and disposition. Disposition Counseled Patient/Family Regarding: Studies Performed, Diagnosis, Need For Followup - Clinical Impression Clinical Impression: Alcohol intoxication - POA Present On Arrival: None - Disposition Disposition: Routine/Home Disposition Time: 09:15 Condition: IMPROVED
--- NOTE | 2016-11-28 19:57 | CT ---
EXAM: CT Lumbar Spine Without Intravenous Contrast CLINICAL HISTORY: 56 years old, male; Pain; Low back pain; Prior surgery TECHNIQUE: Axial computed tomography images of the lumbar spine without intravenous contrast. This CT exam was performed using one or more of the following dose reduction techniques: automated exposure control, adjustment of the mA and/or kV according to patient size, and/or use of iterative reconstruction technique. Coronal and sagittal reformatted images were created and reviewed. EXAM DATE/TIME: 11/28/2016 5:32 PM COMPARISON: MR - SPINAL CANAL LUMBAR W/O CONT 09/19/2016 12:44:52 PM FINDINGS: Vertebrae: L1 is normal in height. There is an old compression fracture of L2. There is a vertebroplasty at L2. L3, L4 and L5 are normal in height. There is minimal retrolisthesis L3 on L4, L4 on L5 and L5 on S1. There are small degenerative osteophytes at multiple levels.Facet joints align anatomically. There is degenerative facet disease at multiple levels. Discs/spinal canal/neural foramina: There is L1/L2 disc space narrowing greatest posteriorly. There is L2/L3 disc space narrowing greatest posteriorly. There is mild lateral disc bulging. There is L3/L4 disc base narrowing greatest posteriorly with disc bulging. There is L4/L5 disc space narrowing with disc bulging. There is severe disc space narrowing L5/S1. There are degenerative spurs posterior laterally at L5/S1. Soft tissues: unremarkable Vasculature: There are vascular calcifications. Liver: There is fatty infiltration of the liver. Kidneys and ureters: Right kidney is in the flank. Left kidney is in the pelvis. IMPRESSION: Old L2 compression fracture status post vertebroplasty; multilevel degenerative change
--- NOTE | 2016-11-28 20:56 | CARD ---
APPROVED REPORT EKG Measurement Heart [id number] <Conclusion> Normal sinus rhythm Left axis deviation Abnormal ECG
== END 2016-11-28 21:18 | disposition home or self-care (01) ==
LOC: H.ER 16:43 → H.EROBSV 18:58
PROVIDERS: ADMIT Emergency Medicine; ATTEND Emergency Medicine
DX: F10.129 Alcohol abuse with intoxication, unspecified (principal); Z86.59 Personal history of other mental and behavioral disorders; I10 Essential (primary) hypertension; Z83.3 Family history of diabetes mellitus

== ENCOUNTER 2016-12-02 14:09 | Observation (INO) | payer OTHER ==
[2016-12-02 14:10] VITALS: BMI 21.5
[2016-12-02 14:18] VITALS: BP 115/76; PULSE 97; RESP 19; TEMP 98.4; O2SAT 100
[2016-12-02 16:26] LABS: BASO # 0.1 K/uL (0.0-0.2); BASO % 1.1 % (0.0-2.0); EOS # 0.1 K/uL (0.0-0.7); EOS % 1.4 % (0.0-4.0); HEMOGLOBIN 12.8 g/dL (12.0-18.0); LYMPH # 3.1 K/uL (1.0-4.3); LYMPH % 51.2 % (20.0-40.0); MEAN CELL VOLUME 90.6 fl (80.0-94.0); MEAN CORPUSCULAR HEMOGLOBIN 30.9 pg (27.0-31.0); MEAN CORPUSCULAR HGB CONC 34.1 g/dL (33.0-37.0); MEAN PLATELET VOLUME 6.9 fl (7.2-11.7); MONO # 0.3 K/uL (0.0-0.8); MONO % 4.4 % (0.0-10.0); NEUT # 2.5 K/uL (1.8-7.0); NEUT % 41.9 % (50.0-75.0); RBC 4.15 Mil/uL (4.40-5.90); RED CELL DISTRIBUTION WIDTH 19.6 % (11.5-14.5)
[2016-12-02 16:44] LABS: ALB/GLOB RATIO 1.8 (1.0-2.1); ALBUMIN 4.5 g/dL (3.5-5.0); ALT/SGPT 83 U/L (21-72); AST/SGOT 122 U/L (17-59); BLOOD UREA NITROGEN 5 mg/dl (9-20); CALCIUM 8.7 mg/dL (8.4-10.2); GFR AFRICAN-AMERICAN > 60; GFR NON-AFRICAN AMERICAN > 60; LIPASE 331 U/L (23-300)
--- NOTE | 2016-12-02 16:51 | ED PDOC ---
HPI: Back Time Seen by Provider: 12/02/16 14:59 Chief Complaint (Nursing): Back Pain Chief Complaint (Provider): ETOH intoxication and back pain History/Exam Limitations: intoxication (History limited due to alcohol intoxication) Current Symptoms Are (Timing): Still Present Additional Complaint(s): Ryley Torres, a 56 year old male, is brought into the ED for ETOH intoxication and lower back pain. history is limited due to patients intoxicated state. The patient admits to consuming alcohol. Prior charts reviewed and show that his last visit was 4 days ago for alcohol intoxication. Past Medical History Reviewed: Historical Data, Nursing Documentation, Vital Signs Vital Signs: Last Vital Signs Temp 98.4 F 12/02/16 14:16 Pulse 97 H 12/02/16 14:16 Resp 19 12/02/16 14:16 BP 115/76 12/02/16 14:16 Pulse Ox 100 12/02/16 14:16 - Medical History PMH: Anemia, Anxiety, Asthma, Back Problems, Bipolar Disorder, COPD, Depression , Gastritis (secondary to ETOH), GERD, HTN, Hypercholesterolemia, Pancreatitis ( secondary to ETOH), Schizophrenia, Seizures (secondary to ETOH withdrawal), Chronic Pain (low back pain ) Denies: Alzheimer's Disease, Atrial Fibrillation, Bronchitis, Cardia Arrhythmia, CHF, Dementia, Diabetes, Emphysema, Hepatitis, HIV, Migraine, Mitral Valve Prolapse, Multiple Sclerosis, Parkinson's Disease, Peripheral Edema , Pneumonia, Pulmonary Embolism, Chronic Kidney Disease, Sexually Transmitted Disease, Sleep Apnea - Surgical History Surgical History: Back Surgery (4 weeks ago) Denies: Pacemaker - Family History Family History: States: Diabetes - Immunization History Hx Tetanus Toxoid Vaccination: Yes (As per patient, TDaP uptodate ( about 3 years ago)) Hx Influenza Vaccination: No Hx Pneumococcal Vaccination: No - Home Medications Home Medications: Ambulatory Orders Medication Instructions Recorded Albuterol HFA [Ventolin HFA 90 1 puff IH Q6H PRN #1 inhaler 10/25/16 mcg/actuation (8 g)] Aspirin [Aspirin Chewable] 81 mg PO DAILY #30 10/25/16 Atorvastatin [Lipitor] 20 mg PO DAILY #30 tab 10/25/16 Clotrimazole 1% Cream [Lotrimin 1% 1 applic TOP BID 14 Days 10/25/16 CREAM] Cyclobenzaprine [Flexeril] 10 mg PO TID PRN #45 tab 10/25/16 Doxepin [Sinequan] 10 mg PO HS #30 10/25/16 Folic Acid 1 mg PO DAILY #30 10/25/16 Gabapentin [Neurontin] 400 mg PO HS #30 10/25/16 Lidocaine 5% [Lidoderm] 1 ea TD DAILY #30 patch 10/25/16 Nicotine 14 mg/24 hr [Nicoderm CQ] 1 patch TD DAILY #30 patch 10/25/16 QUEtiapine [SEROquel] 50 mg PO HS #30 10/25/16 Sertraline [Zoloft] 100 mg PO DAILY #30 10/25/16 Thiamine [Vitamin B1 Tab] 100 mg PO DAILY #30 tab 10/25/16 amLODIPine [Norvasc] 10 mg PO DAILY #30 tab 10/25/16 traMADol [Ultram] 50 mg PO Q6 PRN #30 tab 10/25/16 - Allergies Allergies/Adverse Reactions: Allergies Allergy/AdvReac Type Severity Reaction Status Date / Time No Known Allergies Allergy Verified 11/28/16 16:47 Review of Systems Review Of Systems: ROS cannot be obtained secondary to pt's inabilty to answer questions. (Cannot be obtained due to patients state of intoxication.) Physical Exam - Reviewed Nursing Documentation Reviewed: Yes Vital Signs Reviewed: Yes - Physical Exam Appears: Positive for: Non-toxic, No Acute Distress Head Exam: Positive for: ATRAUMATIC, NORMAL INSPECTION, NORMOCEPHALIC Skin: Positive for: Normal Color, Warm, Dry Eye Exam: Positive for: Normal appearance, EOMI, PERRL ENT: Positive for: Other (Alcohol on breath.) Neck: Positive for: Normal, Painless ROM, Supple Cardiovascular/Chest: Positive for: Regular Rate, Rhythm, Chest Non Tender. Negative for: Tachycardia Respiratory: Positive for: Normal Breath Sounds. Negative for: Wheezing, Respiratory Distress Gastrointestinal/Abdominal: Positive for: Normal Exam, Bowel Sounds, Soft. Negative for: Tenderness, Guarding, Rebound Back: Positive for: Normal Inspection (No erythema; No edema). Negative for: L CVA Tenderness, R CVA Tenderness Extremity: Positive for: Other (No erythema; no edema). Negative for: Normal ROM (Hypersensitivity of the back.), Tenderness, Pedal Edema, Deformity, Swelling Neurologic/Psych: Positive for: Alert, Oriented, Mood/Affect (Somnolent due to intoxication.) - Laboratory Results Result Diagrams: 12/02/16 16:10 12/02/16 16:10 - ECG O2 Sat by Pulse Oximetry: 100 (RA) Pulse Ox Interpretation: Normal Medical Decision Making Medical Decision Makin Initial Impression: 56 year old male presenting with ETOH intoxication and lower back pain Initial Plan: * Alcohol serum * CMP * Lipase * CBC * Admit * Reevaluation 14:42 Patient placed on ED observation Scribe Attestation Documented by Cleopatra Lorenz acting as a scribe for Mitch Rivas MD. Provider Attestation All medical record entries made by the Scribe were at my direction and personally dictated by me. I have reviewed the chart and agree that the record accurately reflects my personal performance of the history, physical exam, medical decision making, and the department course for this patient. I have also personally directed, reviewed, and agree with the discharge instructions and disposition. Disposition - Clinical Impression Clinical Impression: Intoxication, Chronic back pain - Patient ED Disposition Is Patient to be Admitted: Transfer of Care - Disposition Disposition: Transfer of Care Disposition Time: 19:02 Condition: STABLE Patient Signed Over To: Anthony Cuenca Handoff Comments: pending crisis eval/ dispo
[2016-12-02] MEDS ORDERED: Potassium Chloride 20 mEq ER Tab PO ONE ×4 (17:20→20:54)
--- NOTE | 2016-12-02 20:51 | ED PDOC ---
- Laboratory Results Result Diagrams: 12/02/16 16:10 12/02/16 16:10 - ECG O2 Sat by Pulse Oximetry: 100 (RA) Pulse Ox Interpretation: Normal Medical Decision Making Medical Decision Making: Pt. signed out to me by Dr. Rivas, pt. evaluted, walking around ER freely without difficulty, awake and alert, requesting by be discharged, cleared by crisis (Moustapha Abernathy). Disposition - Clinical Impression Clinical Impression: Intoxication, Chronic back pain, Alcohol abuse - POA Present On Arrival: None - Disposition Disposition: Routine/Home Disposition Time: 20:51 Condition: STABLE
== END 2016-12-02 20:50 | disposition home or self-care (01) ==
LOC: H.ER 14:09 → H.EROBSV 16:45
PROVIDERS: ADMIT Emergency Medicine; ATTEND Emergency Medicine
DX: F10.129 Alcohol abuse with intoxication, unspecified (principal); M54.9 Dorsalgia, unspecified

== ENCOUNTER 2016-12-06 20:42 | Observation (INO) | payer OTHER ==
[2016-12-06 20:43] VITALS: BMI 21.5
[2016-12-06 20:46] VITALS: BP 147/95; PULSE 85; RESP 18; TEMP 98; O2SAT 97
--- NOTE | 2016-12-06 20:58 | ED PDOC ---
HPI: Back Time Seen by Provider: 12/06/16 20:45 Chief Complaint (Nursing): Alcohol Ingestion Chief Complaint (Provider): back pain, etoh History Per: Patient, EMS History/Exam Limitations: intoxication Additional History Per: Patient, EMS Additional Complaint(s): 56 y/o male brought in by EMS for eval of chronic back pain. Patient intoxicated, admits to drinking "two bottles" tonight. Denies fever, nausea/ vomiting, abdominal pain, fall/trauma, numbness/weakness lower extremities, bowel/bladder incontinence, dysuria, hematuria, acute psychiatric complaints. Patient agitated, tells field underwriter and nurse to "not come near me". Past Medical History Reviewed: Historical Data, Nursing Documentation, Vital Signs Vital Signs: Last Vital Signs Temp 98 F 12/06/16 20:44 Pulse 85 12/06/16 20:44 Resp 18 12/06/16 20:44 BP 147/95 H 12/06/16 20:44 Pulse Ox 97 12/06/16 20:44 - Medical History PMH: Anemia, Anxiety, Asthma, Back Problems, Bipolar Disorder, COPD, Depression , Gastritis (secondary to ETOH), GERD, HTN, Hypercholesterolemia, Pancreatitis ( secondary to ETOH), Schizophrenia, Seizures (secondary to ETOH withdrawal), Chronic Pain (low back pain ) Denies: Alzheimer's Disease, Atrial Fibrillation, Bronchitis, Cardia Arrhythmia, CHF, Dementia, Diabetes, Emphysema, Hepatitis, HIV, Migraine, Mitral Valve Prolapse, Multiple Sclerosis, Parkinson's Disease, Peripheral Edema , Pneumonia, Pulmonary Embolism, Chronic Kidney Disease, Sexually Transmitted Disease, Sleep Apnea - Surgical History Surgical History: Back Surgery (4 weeks ago) Denies: Pacemaker - Family History Family History: States: Diabetes - Immunization History Hx Tetanus Toxoid Vaccination: Yes (As per patient, TDaP uptodate ( about 3 years ago)) Hx Influenza Vaccination: No Hx Pneumococcal Vaccination: No - Home Medications Home Medications: Ambulatory Orders Medication Instructions Recorded Albuterol HFA [Ventolin HFA 90 1 puff IH Q6H PRN #1 inhaler 10/25/16 mcg/actuation (8 g)] Aspirin [Aspirin Chewable] 81 mg PO DAILY #30 10/25/16 Atorvastatin [Lipitor] 20 mg PO DAILY #30 tab 10/25/16 Clotrimazole 1% Cream [Lotrimin 1% 1 applic TOP BID 14 Days 10/25/16 CREAM] Cyclobenzaprine [Flexeril] 10 mg PO TID PRN #45 tab 10/25/16 Doxepin [Sinequan] 10 mg PO HS #30 10/25/16 Folic Acid 1 mg PO DAILY #30 10/25/16 Gabapentin [Neurontin] 400 mg PO HS #30 10/25/16 Lidocaine 5% [Lidoderm] 1 ea TD DAILY #30 patch 10/25/16 Nicotine 14 mg/24 hr [Nicoderm CQ] 1 patch TD DAILY #30 patch 10/25/16 QUEtiapine [SEROquel] 50 mg PO HS #30 10/25/16 Sertraline [Zoloft] 100 mg PO DAILY #30 10/25/16 Thiamine [Vitamin B1 Tab] 100 mg PO DAILY #30 tab 10/25/16 amLODIPine [Norvasc] 10 mg PO DAILY #30 tab 10/25/16 traMADol [Ultram] 50 mg PO Q6 PRN #30 tab 10/25/16 - Allergies Allergies/Adverse Reactions: Allergies Allergy/AdvReac Type Severity Reaction Status Date / Time No Known Allergies Allergy Verified 11/28/16 16:47 Review of Systems ROS Statement: Except As Marked, All Systems Reviewed And Found Negative Musculoskeletal: Positive for: Back Pain Physical Exam - Reviewed Nursing Documentation Reviewed: Yes Vital Signs Reviewed: Yes - Physical Exam Appears: Positive for: Well, Non-toxic, No Acute Distress Head Exam: Positive for: ATRAUMATIC, NORMAL INSPECTION, NORMOCEPHALIC Skin: Positive for: Normal Color Eye Exam: Positive for: Normal appearance ENT: Positive for: Normal ENT Inspection Cardiovascular/Chest: Positive for: Regular Rate, Rhythm Respiratory: Positive for: Normal Breath Sounds Gastrointestinal/Abdominal: Positive for: Normal Exam Back: Positive for: Normal Inspection Extremity: Positive for: Normal ROM Neurologic/Psych: Positive for: Alert, Oriented - ECG O2 Sat by Pulse Oximetry: 97 ED OBSERVATION Date of observation admission: 12/06/16 Time of observation admission: 22:48 - Observation admission statement Patient is being placed in observation because:: acute alcohol intoxication - Goals of Observation Goals of observation are:: observe for clinical sobriety - Progress Note Progress Note: 12/06/16 22:48 patient sleeping; no distress 12/07/16 1:00 Patient sleeping; no distress 3:30 Patient awake, alert, oriented x3; ambulating steady gait. Stable for discharge Disposition - Clinical Impression Clinical Impression: Alcohol abuse, Chronic back pain - Patient ED Disposition Is Patient to be Admitted: No Counseled Patient/Family Regarding: Studies Performed, Diagnosis, Need For Followup - Disposition Disposition: Routine/Home Disposition Time: 03:31 Condition: STABLE
== END 2016-12-07 07:08 | disposition home or self-care (01) ==
LOC: H.ER 20:42 → H.EROBSV 22:47
PROVIDERS: ADMIT Emergency Medicine; ATTEND Emergency Medicine
DX: F10.129 Alcohol abuse with intoxication, unspecified (principal); Y90.8 Blood alcohol level of 240 mg/100 ml or more; G89.29 Other chronic pain; J44.9 Chronic obstructive pulmonary disease, unspecified; E78.00 Pure hypercholesterolemia, unspecified; F20.9 Schizophrenia, unspecified; F31.9 Bipolar disorder, unspecified; I10 Essential (primary) hypertension; K21.9 Gastro-esophageal reflux disease without esophagitis; J45.909 Unspecified asthma, uncomplicated; F41.9 Anxiety disorder, unspecified; K29.20 Alcoholic gastritis without bleeding

== ENCOUNTER 2016-12-12 20:01 | Inpatient (IN) | payer OTHER ==
[2016-12-12 20:02] VITALS: BMI 21.5
[2016-12-12 21:12] LABS: BASO # 0.1 K/uL (0.0-0.2); BASO % 1.3 % (0.0-2.0); EOS # 0.1 K/uL (0.0-0.7); EOS % 1.9 % (0.0-4.0); HEMOGLOBIN 13.4 g/dL (12.0-18.0); LYMPH # 3.7 K/uL (1.0-4.3); LYMPH % 54.2 % (20.0-40.0); MEAN CELL VOLUME 95.3 fl (80.0-94.0); MEAN CORPUSCULAR HEMOGLOBIN 32.3 pg (27.0-31.0); MEAN PLATELET VOLUME 7.2 fl (7.2-11.7); MONO # 0.4 K/uL (0.0-0.8); MONO % 5.6 % (0.0-10.0); NEUT # 2.5 K/uL (1.8-7.0); NRBC % 0.1 % (0.0-0.0); RBC 4.14 Mil/uL (4.40-5.90); RED CELL DISTRIBUTION WIDTH 21.1 % (11.5-14.5); WHITE BLOOD COUNT 6.9 K/uL (4.8-10.8)
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
[2016-12-12 21:32] LABS: ALB/GLOB RATIO 1.5 (1.0-2.1); ALBUMIN 4.7 g/dL (3.5-5.0); ALT/SGPT 78 U/L (21-72); AST/SGOT 156 U/L (17-59); BLOOD UREA NITROGEN 10 mg/dl (9-20); CALCIUM 8.9 mg/dL (8.4-10.2); GFR AFRICAN-AMERICAN > 60; GFR NON-AFRICAN AMERICAN > 60; LIPASE 603 U/L (23-300)
[2016-12-12 21:52] LABS: INR 1.1 (0.9-1.2); PARTIAL THROMBOPLASTIN TIME 29.5 Seconds (25.6-37.1); PROTHROMBIN TIME 12.6 Seconds (9.8-13.1)
[2016-12-12] MEDS ORDERED: Multivitamin (MVI) 10 ML, Thiamine 100 MG, Folic Acid 1 MG in Sodium Chloride 0.9% 1,00... IV ONE (22:11)
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
[2016-12-13] MEDS ORDERED: Lactated Ringer's 1,000 ML IV SCH ×2 (00:45→07:30)
--- NOTE | 2016-12-13 08:33 | CARD ---
APPROVED REPORT EKG Measurement Heart [id number] <Conclusion> Normal sinus rhythm Left axis deviation Prolonged QT Abnormal ECG
[2016-12-13] MEDS: Multivitamin With Minerals Tab PO SCH (09:33)
[2016-12-13] MEDS ORDERED: Morphine 4 MG/ML VIAL IVP PRN (11:06)
--- NOTE | 2016-12-13 11:52 | CP.PCM.PN ---
Subjective - Date & Time of Evaluation Date of Evaluation: 12/13/16 Time of Evaluation: 11:37 - Subjective Subjective: Pt seen and examined. complaining of Visual and auditory hallucinations. no nausea, vomiting or hematuria. had one normal BM this morning. complaining of burning abdominal pain, sweating and headache. denies SOB, chest pain. Objective - Vital Signs/Intake and Output Vital Signs (last 24 hours): Temp Pulse Resp BP Pulse Ox 98 F 86 18 163/81 H 97 12/13/16 08:29 12/13/16 08:29 12/13/16 08:29 12/13/16 08:29 12/13/16 08:29 - Medications Medications: Current Medications Amlodipine Besylate (Norvasc) 5 mg PO DAILY [facility] Chlordiazepoxide (Librium) 25 mg PO Q8 [facility] Last Admin: 12/13/16 02:34 Dose: 25 mg Folic Acid (Folic Acid) 1 mg PO DAILY [facility] Last Admin: 12/13/16 09:33 Dose: 1 mg Lactated Ringer's (Lactated Ringer's) 1,000 mls @ 200 mls/hr IV .Q5H CHARLINE Lorazepam (Ativan) 2 mg IVP Q6 PRN PRN Reason: Symptoms of alcohol withdrawl Last Admin: 12/13/16 09:33 Dose: 2 mg Morphine Sulfate (Morphine) 2 mg IVP Q4 PRN PRN Reason: Pain, moderate (4-7) Multivitamins/Minerals (Therapeutic-M Tab) 1 tab PO DAILY [facility] Last Admin: 12/13/16 09:33 Dose: 1 tab Thiamine HCl (Vitamin B1 Tab) 100 mg PO DAILY [facility] Last Admin: 12/13/16 09:33 Dose: 100 mg - Labs Labs: PT 12.6 Seconds (9.8-13.1) 12/12/16 21:05 INR 1.1 (0.9-1.2) 12/12/16 21:05 APTT 29.5 Seconds (25.6-37.1) 12/12/16 21:05 - Constitutional Appears: No Acute Distress - Head Exam Head Exam: ATRAUMATIC, NORMAL INSPECTION, NORMOCEPHALIC - Eye Exam Eye Exam: EOMI, Normal appearance - ENT Exam ENT Exam: Mucous Membranes Moist - Neck Exam Neck Exam: Full ROM. absent: Lymphadenopathy - Respiratory Exam Respiratory Exam: Clear to Ausculation Bilateral, NORMAL BREATHING PATTERN. absent: Accessory Muscle Use, Chest Wall Tenderness, Decreased Breath Sounds - Cardiovascular Exam Cardiovascular Exam: REGULAR RHYTHM, +S1, +S2. absent: Bradycardia, Tachycardia - GI/Abdominal Exam GI & Abdominal Exam: Distended, Tenderness, Normal Bowel Sounds. absent: Guarding, Rigid, Hernia - Extremities Exam Extremities Exam: Calf Tenderness. absent: Joint Swelling, Pedal Edema Additional comments: b/l UE tremors - Back Exam Back Exam: absent: CVA tenderness (L), CVA tenderness (R) - Neurological Exam Neurological Exam: Alert, Awake, CN II-XII Intact, Oriented x3 Neuro motor strength exam: Left Upper Extremity: 5, Right Upper Extremity: 5, Left Lower Extremity: 5, Right Lower Extremity: 5 - Psychiatric Exam Psychiatric exam: Flat Affect - Skin Skin Exam: Normal Color Assessment and Plan - Assessment and Plan (Free Text) Assessment: 56 yo M w PMHx of chronic etoh abuse, HTN, COPD, depression, anxiety, and asthma is admitted due to a week-long worsening abdominal pain and likely pancreatitis. Plan: Pancreatitis -Complaints of abdominal pain, distension, previous h/o pancreatitis and etoh abuse -Lipase: 603 -AST/ALT: 156/78 -ALP: 163 -UA: No blood, No Leuk Esterase -NPO -Abd U/S: Pancreas- Visualization of the pancreas is limited by overlying bowel gas. Gallbladder- No acute findings, No gallstones. -F/u with repeated abdo U/S for Pancreas -recived Banana Bag -Received bouls 2L of LR -current IV fluid running at rate 200ml/hr -Morphine 2mg Q4 PRN for pain control Acute Alcohol Intoxication -Alcohol: 314 -CIWA Score: 22 -Will continue to monitor for symptoms of withdrawal -Librium 25mg PO Q8H CHARLINE -Ativan 2mg IVP Q6H PRN -Folic Acid 1mg PO Daily -Thiamine 100mg PO Daily -Multivitamin 1 tab PO Daily Visual/auditory hallucination -likely due to Alcohol intoxication vs comorbid psychologic conditions -Psyc consult is placed -will f/u psych recommendations Homicidal Ideation -likely due to underline Depression -will f/u with psych consult HTN -Continue Norvasc 5mg PO Daily -will monitor BP DVT Prophylaxis -SCDs for now
[2016-12-13] MEDS: Lactated Ringer's 1,000 ML IV SCH ×3 (12:17→20:51)
--- NOTE | 2016-12-13 15:51 | US ---
HISTORY: Acute pancreatitis. Abdominal pain 3 days duration COMPARISON: December 12, 2016. Right upper quadrant ultrasound 10/18/2016 CT abdomen and pelvis TECHNIQUE: Sonographic evaluation of the right upper quadrant of the abdomen. FINDINGS: LIVER: Measures room 5 cm in length. Normal echogenicity of the liver parenchyma. No mass. No intrahepatic bile duct dilatation. GALLBLADDER: Sludge without evidence of cholelithiasis. Negative sonographic Pereira's sign COMMON BILE DUCT: Measures 4.3 mm. No stones. No dilatation. PANCREAS: Obscured by overlying bowel gas. Non diagnostic assessment of the pancreas. RIGHT KIDNEY: Measures 6 x 11.3 cm in length. Normal echogenicity. No calculus, mass, or hydronephrosis. AORTA: No aneurysmal dilatation. IVC: Unremarkable. OTHER FINDINGS: None . IMPRESSION: No acute findings related to/accounting for the clinical presentation. Limitations of the current examination: Nondiagnostic assessment of the pancreas.
[2016-12-14] MEDS: Lactated Ringer's 1,000 ML IV SCH ×3 (03:08→16:17)
[2016-12-14 08:17] LABS: ALB/GLOB RATIO 1.6 (1.0-2.1); ALBUMIN 4.4 g/dL (3.5-5.0); ALT/SGPT 59 U/L (21-72); AST/SGOT 87 U/L (17-59); BLOOD UREA NITROGEN 5 mg/dl (9-20); CALCIUM 8.4 mg/dL (8.4-10.2); GFR AFRICAN-AMERICAN > 60; GFR NON-AFRICAN AMERICAN > 60
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
[2016-12-14] MEDS ORDERED: Potassium Chloride 20 mEq/15 ml LIQ UD PO ONE (08:45)
--- NOTE | 2016-12-14 08:46 | CP.PCM.PN ---
Subjective - Date & Time of Evaluation Date of Evaluation: 12/14/16 Time of Evaluation: 08:40 - Subjective Subjective: Pt was seen and examined at bedside. felling much better than yesterday. complaining of mild abdo pain which is improved from yesterday and right side sever headache, electrical in nature, 8/10 severity and radiating to neck, sensitive to light but not noise. denies sweating, SOB, N/V/D or chest pain. had auditory and visual hallucination last night but not since he woke up. Objective - Vital Signs/Intake and Output Vital Signs (last 24 hours): Temp Pulse Resp BP Pulse Ox 98.4 F 69 20 161/83 H 97 12/14/16 08:12 12/14/16 08:12 12/14/16 08:12 12/14/16 08:12 12/14/16 08:12 - Medications Medications: Current Medications Amlodipine Besylate (Norvasc) 5 mg PO DAILY [facility] Chlordiazepoxide (Librium) 25 mg PO Q8 [facility]LINE Last Admin: 12/14/16 00:57 Dose: 25 mg Folic Acid (Folic Acid) 1 mg PO DAILY [facility] Last Admin: 12/13/16 09:33 Dose: 1 mg Gabapentin (Neurontin) 400 mg PO HS CHARLINE Lactated Ringer's (Lactated Ringer's) 1,000 mls @ 200 mls/hr IV .Q5H CHARLINE Last Admin: 12/14/16 03:08 Dose: 200 mls/hr Lorazepam (Ativan) 2 mg IVP Q6 PRN PRN Reason: Symptoms of alcohol withdrawl Last Admin: 12/13/16 20:51 Dose: 2 mg Morphine Sulfate (Morphine) 2 mg IVP Q4 PRN PRN Reason: Pain, moderate (4-7) Multivitamins/Minerals (Therapeutic-M Tab) 1 tab PO DAILY [facility] Last Admin: 12/13/16 09:33 Dose: 1 tab Quetiapine Fumarate (Seroquel) 50 mg PO HS CHARLINE Sertraline HCl (Zoloft) 100 mg PO DAILY [facility] Thiamine HCl (Vitamin B1 Tab) 100 mg PO DAILY [facility] Last Admin: 12/13/16 09:33 Dose: 100 mg - Labs Labs: 12/14/16 07:15 PT 12.6 Seconds (9.8-13.1) 12/12/16 21:05 INR 1.1 (0.9-1.2) 12/12/16 21:05 APTT 29.5 Seconds (25.6-37.1) 12/12/16 21:05 - Constitutional Appears: Non-toxic, No Acute Distress - Head Exam Head Exam: ATRAUMATIC, NORMAL INSPECTION, NORMOCEPHALIC - Eye Exam Eye Exam: EOMI, Normal appearance - ENT Exam ENT Exam: Mucous Membranes Moist - Neck Exam Neck Exam: Full ROM. absent: Lymphadenopathy - Respiratory Exam Respiratory Exam: Clear to Ausculation Bilateral, NORMAL BREATHING PATTERN. absent: Accessory Muscle Use, Chest Wall Tenderness, Decreased Breath Sounds - Cardiovascular Exam Cardiovascular Exam: REGULAR RHYTHM, +S1, +S2. absent: Bradycardia, Tachycardia - GI/Abdominal Exam GI & Abdominal Exam: Soft, Tenderness (diffuse, mild), Normal Bowel Sounds. absent: Guarding, Rigid, Hernia - Extremities Exam Extremities Exam: Full ROM, Normal Capillary Refill. absent: Calf Tenderness - Back Exam Back Exam: absent: CVA tenderness (L), CVA tenderness (R) - Neurological Exam Neurological Exam: Alert, Awake, CN II-XII Intact, Oriented x3 Neuro motor strength exam: Left Upper Extremity: 5, Right Upper Extremity: 5, Left Lower Extremity: 5, Right Lower Extremity: 5 - Psychiatric Exam Psychiatric exam: Depressed, Flat Affect - Skin Skin Exam: Dry, Normal Color, Warm Assessment and Plan - Assessment and Plan (Free Text) Assessment: 56 yo M w PMHx of chronic etoh abuse, HTN, COPD, depression, anxiety, and asthma is admitted due to a week-long worsening abdominal pain and likely pancreatitis. Plan: Pancreatitis -acute on chronic -Complaints of abdominal pain, distension, previous h/o pancreatitis and etoh abuse -Lipase: 657 -AST/ALT: 101/55 -ALP: 148 -UA: No blood, No Leuk Esterase -Abd U/S x2 : Pancreas- Visualization of the pancreas is limited by overlying bowel gas. Gallbladder- No acute findings, No gallstones. -continue IV fluid at rate 200ml/hr -Morphine 2mg Q4 PRN for pain control Acute Alcohol Intoxication -Alcohol: 314 on admission -CIWA Score: 7 -Librium 25mg PO Q8H CHARLINE -Ativan 2mg IVP Q6H PRN -Folic Acid 1mg PO Daily -Thiamine 100mg PO Daily -Multivitamin 1 tab PO Daily Hypokalemia -Potassium 3.0 -KCL 20meq PO daily -will monitor closely MDD -chronic -Psych, Dr. Malone, recommendations appreciated -As per psych Patient would benefit from voluntary psychiatry admission when he is medically stable -will restart Gabapentin 400 mg PO HS, Seroquel 50 mg PO HS, Zoloft 100 mg PO Daily -Nicotine patch -Alcohol withdrawal protocol -as per psych, No 1:1 indicated at this time Visual/auditory hallucination with Homicidal Ideation -chronic -likely due to Alcohol intoxication/abuse vs comorbid psychologic conditions -Psych is consulted HTN -Continue Norvasc 10mg PO Daily -will monitor BP DVT Prophylaxis -SCDs for now
--- NOTE | 2016-12-14 10:58 | PQF GENQUE ---
This form is a permanent part of the medical record 12/14/16 Dr. Palacios, Please clarify the Etiology of the Pancreatitis and whether it is acute or chronic. Patient with a history of ETOH abuse is admitted with abdominal pain and alcohol intoxication. Lipase 603. Ultrasound : pancreas obscured by overlying bowel gas. Non diagnostic assessment of the pancreas. Clarification of your documentation is requested to better reflect the severity of illness and intensity of treatment of your patient. Indicators present [] Specify: [] [] Specify: [] [] Specify: [] [] Specify: [] Location in the medical record that reflects the above clinical findings: [] Treatment Provided: [] PHYSICIAN'S RESPONSE Based on your medical judgment of the clinical indicators outlined above please clarify the following: [] Practitioner response [] If unable to determine, please check the box, sign and date. Present On Admission (POA) Indicator: [] Present at the time of admission [] Not present at the time of admission [] Clinically Undetermined In responding to this query, please exercise your independent professional judgment. The fact that a question is asked does not imply that any particular answer is desired or expected. Thank you for your clarification on this documentation. If you have any questions please call:ext: [phone] * Thank you, Ophelia Day RN [facility]
[2016-12-14 15:23] LABS: ALB/GLOB RATIO 1.5 (1.0-2.1); ALBUMIN 4.9 g/dL (3.5-5.0); ALT/SGPT 55 U/L (21-72); AST/SGOT 101 U/L (17-59); BLOOD UREA NITROGEN 3 mg/dl (9-20); CALCIUM 9.2 mg/dL (8.4-10.2); GFR AFRICAN-AMERICAN > 60; GFR NON-AFRICAN AMERICAN > 60; LIPASE 657 U/L (23-300)
[2016-12-15 00:56] VITALS: TEMP 98.3
[2016-12-15] MEDS: Lactated Ringer's 1,000 ML IV SCH ×2 (01:43→03:15)
[2016-12-15] MEDS ORDERED: Lactated Ringer's 1,000 ML IV SCH (02:15)
[2016-12-15] MEDS ORDERED: Benzocaine/Menthol (Cepacol) Lozenge PO ONE (02:24)
[2016-12-15 08:07] VITALS: BP 159/92; PULSE 82; RESP 20; O2SAT 95
[2016-12-15] MEDS ORDERED: Potassium Chloride 20 mEq/15 ml LIQ UD PO SCH (09:00)
[2016-12-15] MEDS: Multivitamin With Minerals Tab PO SCH (09:28)
[2016-12-15 10:49] LABS: BLOOD UREA NITROGEN 4 mg/dl (9-20); GFR AFRICAN-AMERICAN > 60; GFR NON-AFRICAN AMERICAN > 60; LIPASE 540 U/L (23-300)
[2016-12-15] MEDS ORDERED: Amylase/Lipase/Protease 5,000 U ECC PO SCH (11:30)
--- NOTE | 2016-12-15 13:26 | CP.PCM.DIS ---
Provider - Provider Date of Admission: 12/13/16 14:09 Attending physician: Cande Palacios MD Consults: Psychiatry, Dr. Malone Time Spent in preparation of Discharge (in minutes): 30 Diagnosis - Discharge Diagnosis (1) Acute pancreatitis Status: Acute Comment: Acute on chronic, Resolved (2) Alcohol abuse with intoxication Status: Chronic (3) Acute hypokalemia Status: Acute (4) Alcohol withdrawal Status: Acute (5) Depression Status: Chronic (6) Psychosis Status: Chronic (7) HTN (hypertension) Status: Chronic Comment: controlled (8) HTN (hypertension) Status: Chronic Hospital Course - Lab Results Lab Results: Most Recent Lab Values WBC 6.9 K/uL (4.8-10.8) 12/12/16 21:05 RBC 4.14 Mil/uL (4.40-5.90) L 12/12/16 21:05 Hgb 13.4 g/dL (12.0-18.0) 12/12/16 21:05 Hct 39.5 % (35.0-51.0) 12/12/16 21:05 MCV 95.3 fl (80.0-94.0) H D 12/12/16 21:05 MCH 32.3 pg (27.0-31.0) H 12/12/16 21:05 MCHC 34.0 g/dL (33.0-37.0) 12/12/16 21:05 RDW 21.1 % (11.5-14.5) H 12/12/16 21:05 Plt Count 216 K/uL (130-400) 12/12/16 21:05 MPV 7.2 fl (7.2-11.7) 12/12/16 21:05 Neut % (Auto) 37.0 % (50.0-75.0) L 12/12/16 21:05 Lymph % (Auto) 54.2 % (20.0-40.0) H 12/12/16 21:05 [place] % (Auto) 5.6 % (0.0-10.0) 12/12/16 21:05 Eos % (Auto) 1.9 % (0.0-4.0) 12/12/16 21:05 Baso % (Auto) 1.3 % (0.0-2.0) 12/12/16 21:05 Neut # 2.5 K/uL (1.8-7.0) 12/12/16 21:05 Lymph # 3.7 K/uL (1.0-4.3) 12/12/16 21:05 [place] # 0.4 K/uL (0.0-0.8) 12/12/16 21:05 Eos # 0.1 K/uL (0.0-0.7) 12/12/16 21:05 Baso # 0.1 K/uL (0.0-0.2) 12/12/16 21:05 PT 12.6 Seconds (9.8-13.1) 12/12/16 21:05 INR 1.1 (0.9-1.2) 12/12/16 21:05 APTT 29.5 Seconds (25.6-37.1) 12/12/16 21:05 Sodium 138 mmol/l (132-148) 12/15/16 09:50 Potassium 3.1 MMOL/L (3.6-5.0) L 12/15/16 09:50 Chloride 101 mmol/L (98-107) 12/15/16 09:50 Carbon Dioxide 25 mmol/L (22-30) 12/15/16 09:50 Anion Gap 15 (10-20) 12/15/16 09:50 BUN 4 mg/dl (9-20) L 12/15/16 09:50 Creatinine 0.6 mg/dL (0.8-1.5) L 12/15/16 09:50 Est GFR ( Amer) > 60 12/15/16 09:50 Est GFR (Non-Af Amer) > 60 12/15/16 09:50 POC Glucose (mg/dL) 95 mg/dL (65-110) 12/12/16 21:19 Random Glucose 246 mg/dL (75-110) H 12/15/16 09:50 Calcium 9.0 mg/dL (8.4-10.2) 12/15/16 09:50 Total Bilirubin 1.3 mg/dl (0.2-1.3) 12/14/16 15:00 AST 101 U/L (17-59) H 12/14/16 15:00 ALT 55 U/L (21-72) 12/14/16 15:00 Alkaline Phosphatase 148 U/L (38-126) H D 12/14/16 15:00 Lactate Dehydrogenase 590 U/L (313-618) 12/12/16 21:05 Total Protein 8.1 G/DL (6.3-8.2) 12/14/16 15:00 Albumin 4.9 g/dL (3.5-5.0) 12/14/16 15:00 Globulin 3.2 gm/dL (2.2-3.9) 12/14/16 15:00 Albumin/Globulin Ratio 1.5 (1.0-2.1) 12/14/16 15:00 Lipase 540 U/L (23-300) H 12/15/16 09:50 Alcohol, Quantitative 314 mg/dl (0-10) H* 12/12/16 21:05 - Hospital Course Hospital Course: 56 yo M w PMHx of chronic etoh abuse, HTN, depression, and anxiety is admitted due to a week-long worsening abdominal pain, nausea and vomiting. likely acute on chronic pancreatitis due to alcohol intoxication. During his stay, Abd U/S x2 was limited to reveal any abnormalities. Patient's pain improved after NPO, IVF and pain control. Initial CIWA score 22 improved to 4 after Librium 25mg PO Q8H CHARLINE and Ativan 2mg IVP Q6H PRN. Patient was also found to be Hypokalemic which improved on LR and KCL 20meq PO. Psych, Dr. Malone was consulted due to c/ o Auditory/Visual hallucination and depression who recommended voluntary Psych transfer and pt agreed. Patient was transferred to Psych after medically recovered from pancreatitis. - Date & Time of H&P Date of H&P: 12/13/16 Time of H&P: 01:39 Discharge Exam - Head Exam Head Exam: ATRAUMATIC, NORMAL INSPECTION, NORMOCEPHALIC - Eye Exam Eye Exam: Normal appearance - ENT Exam ENT Exam: Mucous Membranes Moist - Neck Exam Neck exam: Full Rom - Respiratory Exam Respiratory Exam: Clear to PA & Lateral, NORMAL BREATHING PATTERN. absent: Accessory Muscle Use, Chest Wall Tenderness, Decreased Breath Sounds - Cardiovascular Exam Cardiovascular Exam: REGULAR RHYTHM, +S1, +S2. absent: Bradycardia, Tachycardia - GI/Abdominal Exam GI & Abdominal Exam: Normal Bowel Sounds, Soft, Tenderness (mild-diffuse ). absent: Distended - Back Exam Back exam: absent: CVA tenderness (L), CVA tenderness (R) - Neurological Exam Neurological exam: Alert, CN II-XII Intact, Oriented x3 - Psychiatric Exam Psychiatric exam: Depressed - Skin Skin Exam: Dry, Normal Color, Warm Discharge Plan - Follow Up Plan Condition: SERIOUS Disposition: DISCHARGE TO PSYCH HOSPITAL Instructions: Pancreatitis (DC), Alcohol Intoxication (DC), Hypokalemia (DC), Hypokalemia (GEN), Depression (DC) Referrals: Cici Malone MD [Medical Doctor] -
== END 2016-12-15 12:33 | DRG 204 ==
LOC: H.ER 20:01 → H.ERHOLD 21:12 → H.EROBSV 21:12 → H.TEL 12-13 02:54 → OBSVTOIN 12-13 14:09 → H.MEDSURG1 12-14 05:43
PROVIDERS: ADMIT Family Medicine Geriatric Medicine; ATTEND Family Medicine Geriatric Medicine
DX: K85.20 Alcohol induced acute pancreatitis without necrosis or infection (principal); F32.3 Major depressive disorder, single episode, severe with psychotic features; F10.232 Alcohol dependence with withdrawal with perceptual disturbance; E87.6 Hypokalemia; J44.9 Chronic obstructive pulmonary disease, unspecified; R45.850 Homicidal ideations; I10 Essential (primary) hypertension; K86.0 Alcohol-induced chronic pancreatitis; Y90.8 Blood alcohol level of 240 mg/100 ml or more; E78.00 Pure hypercholesterolemia, unspecified; K21.9 Gastro-esophageal reflux disease without esophagitis; F17.200 Nicotine dependence, unspecified, uncomplicated; F10.229 Alcohol dependence with intoxication, unspecified; K29.70 Gastritis, unspecified, without bleeding; J45.909 Unspecified asthma, uncomplicated; F41.9 Anxiety disorder, unspecified; D64.9 Anemia, unspecified; G89.29 Other chronic pain

== ENCOUNTER 2016-12-15 09:54 | Inpatient (IN) | payer MEDICAID ==
[2016-12-15 12:40] VITALS: BMI 29.9
[2016-12-15] MEDS ORDERED: Alum-Mag Hydrox-Simethicone Susp (30 mL) PO PRN (14:25)
[2016-12-15] MEDS ORDERED: DiphenhydrAMINE 50 mg/ml Inj IM PRN (14:25)
[2016-12-15] MEDS ORDERED: Magnesium Hydroxide Susp 30 ml UD PO PRN (14:25)
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
[2016-12-15] MEDS ORDERED: Lidocaine 2% GEL TOP PRN (17:31)
[2016-12-16 06:56] LABS: BLOOD UREA NITROGEN 9 mg/dl (9-20); CALCIUM 9.5 mg/dL (8.4-10.2); GFR AFRICAN-AMERICAN > 60; GFR NON-AFRICAN AMERICAN > 60; HDL CHOLESTEROL 83 MG/DL (30-70)
[2016-12-16 07:07] LABS: LDL CHOLESTEROL 116 mg/dL (0-129)
[2016-12-16] MEDS ORDERED: Amylase/Lipase/Protease 5,000 U ECC PO SCH (07:30)
[2016-12-16] MEDS ORDERED: Potassium Chloride 20 mEq/15 ml LIQ UD PO SCH (09:00)
[2016-12-16] MEDS: Pantoprazole 20 mg EC Tab PO SCH (09:46)
[2016-12-16] MEDS: Multivitamin With Minerals Tab PO SCH (09:48)
[2016-12-16] MEDS: Amylase/Lipase/Protease 5,000 U ECC PO SCH ×3 (10:52→17:12)
[2016-12-16] MEDS: Lidocaine 5% Patch TD SCH (12:11)
--- NOTE | 2016-12-16 14:37 | PCM.PYCHPN ---
Psychiatric Progress Note - Psychiatric Progress Note Patient seen today, length of contact: in treatment team Patient Chief Complaint: i couldn't sleep Problems Identified/Issues Discussed: pt seen in team. c/o back pain. poor sleep. he feels gi distress is improved. no c/o auditory hallucinations. participating in groups. Medical Problems: multiple- f/u by family med Medication Change: Yes (start doxepin at hs) Medical Record Reviewed: Yes Mental Status Examination - Cognitive Function Orientation: Person, Place, Situation, Time Attention: WNL Concentration: WNL Association: WNL Fund of Knowledge: WNL Decription of patient's judgement and insights: fair - Mood Mood: Depressed - Affect Affect: Constricted - Speech Speech: Appropriate - Formal Thought Process Formal Thought Process: No Impairment - Suicidal Ideation Suicidal Ideation: No - Homicidal Ideation Homicidal Ideation: No Goal/Treatment Plan - Goal/Treatment Plan Need for Continued Stay: Remain at risks for inpatient hospitalization, Severe functional impairment Progress Toward Problem(s) and Goals/Treatment Plan: alcohol dependence major depression, recurrent continue current treatment add doxepin for sleep taper ativan family med treating medical issues/pain Estimated Date of D/C: 12/20/16
--- NOTE | 2016-12-16 14:52 | CP.PCM.PN ---
Subjective - Date & Time of Evaluation Date of Evaluation: 12/16/16 Time of Evaluation: 08:15 - Subjective Subjective: Family Medicine Consult Note Patient was seen and examined. As per pt, he is not feeling any GI distress today but had 1 loose BM. no hallucination, denies headaches, nausea, vomiting, SOB, or chest pain. Objective - Vital Signs/Intake and Output Vital Signs (last 24 hours): Temp Pulse Resp BP Pulse Ox 97.2 F L 89 18 143/88 99 12/16/16 09:20 12/16/16 09:20 12/16/16 09:20 12/16/16 09:49 12/15/16 22:00 - Medications Medications: Current Medications Al Hydrox/Mg Hydrox/Simethicone (Maalox Plus 30 Ml) 30 ml PO Q4 PRN PRN Reason: Dyspepsia Amlodipine Besylate (Norvasc) 10 mg PO DAILY [facility] Last Admin: 12/16/16 09:49 Dose: 10 mg Amylase (Pancrease 78650 [id number] [id number] U) 5,000 u PO AC [facility] Last Admin: 12/16/16 12:09 Dose: Not Given Diphenhydramine HCl (Benadryl) 50 mg IM Q6 PRN PRN Reason: Extrapyramidal S/S Unable PO Diphenhydramine HCl (Benadryl) 50 mg PO Q6 PRN PRN Reason: Extrapyramidal Symptoms Last Admin: 12/15/16 23:22 Dose: 50 mg Doxepin HCl (Sinequan) 10 mg PO HS [facility] Folic Acid (Folic Acid) 1 mg PO DAILY [facility] Last Admin: 12/16/16 09:46 Dose: 1 mg Gabapentin (Neurontin) 400 mg PO HS [facility] Last Admin: 12/15/16 21:44 Dose: 400 mg Haloperidol (Haldol) 5 mg PO Q4 PRN PRN Reason: Agitation Haloperidol Lactate (Haldol) 5 mg IM Q4 PRN PRN Reason: Agitation, Unable to Take PO Lidocaine (Lidoderm) 1 ea TD DAILY [facility] Last Admin: 12/16/16 12:11 Dose: 1 ea Lorazepam (Ativan) 2 mg IM Q4 PRN PRN Reason: Anxiety/Agitation,Unable PO Lorazepam (Ativan) 2 mg PO Q4 PRN PRN Reason: Anxiety/Agitation Lorazepam (Ativan) 1 mg PO BIDHS [facility] Last Admin: 12/16/16 09:45 Dose: 1 mg Magnesium Hydroxide (Milk Of Magnesia) 30 ml PO HS PRN PRN Reason: Constipation Multivitamins/Minerals (Therapeutic-M Tab) 1 tab PO DAILY [facility] Last Admin: 12/16/16 09:48 Dose: 1 tab Nicotine (Nicoderm Cq) 1 patch TD DAILY [facility] Last Admin: 12/16/16 09:49 Dose: 1 patch Pantoprazole Sodium (Protonix Ec Tab) 20 mg PO DAILY [facility] Last Admin: 12/16/16 09:46 Dose: 20 mg Potassium Chloride (Potassium Chloride Oral Soln) 20 meq PO BID [facility] Quetiapine Fumarate (Seroquel) 50 mg PO HS [facility] Last Admin: 12/15/16 21:44 Dose: 50 mg Sertraline HCl (Zoloft) 100 mg PO DAILY [facility] Last Admin: 12/16/16 09:46 Dose: 100 mg Thiamine HCl (Vitamin B1 Tab) 100 mg PO DAILY [facility] Last Admin: 12/16/16 09:45 Dose: 100 mg Tramadol HCl (Ultram) 50 mg PO Q6 PRN PRN Reason: Pain, moderate (4-7) Last Admin: 12/15/16 17:21 Dose: 50 mg - Labs Labs: 12/16/16 05:30 - Constitutional Appears: Non-toxic, No Acute Distress - Head Exam Head Exam: ATRAUMATIC, NORMAL INSPECTION, NORMOCEPHALIC - Eye Exam Eye Exam: EOMI, Normal appearance - ENT Exam ENT Exam: Mucous Membranes Moist - Neck Exam Neck Exam: Full ROM - Respiratory Exam Respiratory Exam: Clear to Ausculation Bilateral, NORMAL BREATHING PATTERN. absent: Accessory Muscle Use, Chest Wall Tenderness, Decreased Breath Sounds - Cardiovascular Exam Cardiovascular Exam: REGULAR RHYTHM, +S1, +S2 - GI/Abdominal Exam GI & Abdominal Exam: Soft, Tenderness (mild epigastric ), Normal Bowel Sounds. absent: Rigid, Rebound - Extremities Exam Extremities Exam: Full ROM, Normal Capillary Refill, Normal Inspection. absent : Calf Tenderness - Back Exam Back Exam: absent: CVA tenderness (L), CVA tenderness (R) - Neurological Exam Neurological Exam: Alert, Awake, CN II-XII Intact, Oriented x3 - Psychiatric Exam Psychiatric exam: Depressed - Skin Skin Exam: Dry, Intact, Normal Color, Warm Assessment and Plan - Assessment and Plan (Free Text) Assessment: 56 yo M w PMHx of chronic etoh abuse, HTN, chronic back pain, depression, and anxiety is admitted due to a week-long worsening abdominal pain and likely pancreatitis due to alcohol abuse. Plan: Chronic Pancreatitis -due to Alcohol abuse -pancreases started, well tolerated (12/15/16) Hypokalemia -Acute -Potassium 2.9 -will change KCL 20meq PO daily to BID -will monitor closely -discussed Hypokalemia with psychiatrist, as Seroquel may cause Hypokalemia, will d/c Seroquel as per psych -Urine electrolytes are ordered to evaluate for urinary loses HTN -chronic -Continue Norvasc 10mg PO Daily -will monitor BP Chronic Back Pain -due to nontraumatic hx of L2 compression fracture -s/p kyphoplasty on 09/20/16 -continue Tramadol 50 PO Q6 -continue Lidocaine 5% patch MDD -as per Psych
[2016-12-16] MEDS: Potassium Chloride 20 mEq/15 ml LIQ UD PO SCH (17:13)
[2016-12-17 08:27] LABS: BLOOD UREA NITROGEN 9 mg/dl (9-20); CALCIUM 9.6 mg/dL (8.4-10.2); GFR AFRICAN-AMERICAN > 60; GFR NON-AFRICAN AMERICAN > 60; MAGNESIUM 1.5 MG/DL (1.6-2.3)
[2016-12-17] MEDS: Pantoprazole 20 mg EC Tab PO SCH (09:05)
[2016-12-17] MEDS: Amylase/Lipase/Protease 5,000 U ECC PO SCH ×3 (09:05→16:46)
[2016-12-17] MEDS: Multivitamin With Minerals Tab PO SCH (09:05)
[2016-12-17] MEDS: Potassium Chloride 20 mEq/15 ml LIQ UD PO SCH ×2 (09:06→16:46)
[2016-12-17] MEDS: Lidocaine 5% Patch TD SCH (09:06)
--- NOTE | 2016-12-17 09:21 | PCM.PYCHPN ---
Psychiatric Progress Note - Psychiatric Progress Note Patient seen today, length of contact: Patient evaluated, case discussed with team, chart reviewed Patient Chief Complaint: "I'm okay" Problems Identified/Issues Discussed: Patient continues to report depressed mood with depressed/constricted affect. He reports difficulty sleeping at night. Denies current psychotic symptoms. He has been in good behavioral control. No significant events on the unit. Medication Change: No Medical Record Reviewed: Yes Mental Status Examination - Cognitive Function Orientation: Person, Place, Situation, Time Memory: Intact Attention: WNL Concentration: WNL Association: WNL Fund of Knowledge: [facility] Decription of patient's judgement and insights: Fair I/J - Mood Mood: Depressed - Affect Affect: Constricted - Speech Speech: Appropriate - Formal Thought Process Formal Thought Process: No Impairment Psychotic Thoughts and Behaviors: Denies AH/VH/paranoia/delusions - Suicidal Ideation Suicidal Ideation: No - Homicidal Ideation Homicidal Ideation: No Goal/Treatment Plan - Goal/Treatment Plan Need for Continued Stay: Remain at risks for inpatient hospitalization, Severe functional impairment Progress Toward Problem(s) and Goals/Treatment Plan: Alcohol Use Disorder; Major Depressive Disorder, recurrent -Continue Seroquel 50 mg PO HS, Zoloft 100 mg PO Daily, Gabapentin 400 mg PO HS , Doxepin 10 mg PO HS -Taper Ativan to 1 mg PO Q12hr -Individual and group therapy -Disposition planning -Motivational therapy/ psychoeducation re: alcohol abuse -Family med treating medical issues/pain Estimated Date of D/C: 12/20/16
[2016-12-17 16:55] VITALS: O2SAT 99
[2016-12-18] MEDS: Lidocaine 5% Patch TD SCH (08:57)
[2016-12-18] MEDS: Amylase/Lipase/Protease 5,000 U ECC PO SCH ×3 (09:06→17:26)
[2016-12-18] MEDS: Multivitamin With Minerals Tab PO SCH ×2 (09:06→09:12)
[2016-12-18] MEDS: Pantoprazole 20 mg EC Tab PO SCH (09:09)
[2016-12-18] MEDS: Potassium Chloride 20 mEq/15 ml LIQ UD PO SCH ×2 (09:15→17:26)
[2016-12-18] MEDS ORDERED: guaiFENesin 100 mg/5 ml Syrup UD PO PRN (10:10)
--- NOTE | 2016-12-18 10:12 | PCM.PYCHPN ---
Psychiatric Progress Note - Psychiatric Progress Note Patient seen today, length of contact: Patient evaluated, case discussed with team, chart reviewed Patient Chief Complaint: "I'm okay" Problems Identified/Issues Discussed: Patient reports that his mood is starting to improve. He reports that he has a cough, no fever or other symptoms. Denies current psychotic symptoms. He has been in good behavioral control. No significant events on the unit. NO ETOH w/ drawal symptoms. Medication Change: Yes (Taper Ativan) Medical Record Reviewed: Yes Mental Status Examination - Cognitive Function Orientation: Person, Place, Situation, Time Memory: Intact Attention: WNL Concentration: WNL Association: [facility] Fund of Knowledge: [facility] Decription of patient's judgement and insights: Fair I/J - Mood Mood: Depressed - Affect Affect: Constricted - Speech Speech: Appropriate - Formal Thought Process Formal Thought Process: No Impairment Psychotic Thoughts and Behaviors: Denies AH/VH/paranoia/delusions - Suicidal Ideation Suicidal Ideation: No - Homicidal Ideation Homicidal Ideation: No Goal/Treatment Plan - Goal/Treatment Plan Need for Continued Stay: Remain at risks for inpatient hospitalization, Severe functional impairment Progress Toward Problem(s) and Goals/Treatment Plan: Alcohol Use Disorder; Major Depressive Disorder, recurrent -Continue Seroquel 50 mg PO HS, Zoloft 100 mg PO Daily, Gabapentin 400 mg PO HS , Doxepin 10 mg PO HS -Taper Ativan to 0.5 mg PO Q12hr -Individual and group therapy -Disposition planning -Motivational therapy/ psychoeducation re: alcohol abuse -Family med treating medical issues/pain Estimated Date of D/C: 12/20/16
[2016-12-19] MEDS: Potassium Chloride 20 mEq/15 ml LIQ UD PO SCH ×2 (09:42→17:24)
[2016-12-19] MEDS: Multivitamin With Minerals Tab PO SCH (09:42)
[2016-12-19] MEDS: Pantoprazole 20 mg EC Tab PO SCH (09:43)
[2016-12-19] MEDS: Amylase/Lipase/Protease 5,000 U ECC PO SCH ×3 (09:44→18:51)
[2016-12-19] MEDS: Lidocaine 5% Patch TD SCH (09:45)
--- NOTE | 2016-12-19 13:48 | PCM.PYCHPN ---
Psychiatric Progress Note - Psychiatric Progress Note Patient seen today, length of contact: discussed with team Patient Chief Complaint: i slept better Problems Identified/Issues Discussed: pt states he's sleeping better. no withdrawal symptoms. feels tired and "worn out physically" refusing inpt rehab. Medical Problems: multiple- f/u by family med Medication Change: Yes (dc ativan) Medical Record Reviewed: Yes Mental Status Examination - Cognitive Function Orientation: Person, Place, Situation, Time Memory: Intact Attention: WNL Concentration: WNL Association: WNL Fund of Knowledge: [facility]N Decription of patient's judgement and insights: fair - Mood Mood: Depressed - Affect Affect: Constricted - Speech Speech: Appropriate - Formal Thought Process Formal Thought Process: No Impairment - Suicidal Ideation Suicidal Ideation: No - Homicidal Ideation Homicidal Ideation: No Goal/Treatment Plan - Goal/Treatment Plan Need for Continued Stay: Remain at risks for inpatient hospitalization, Severe functional impairment Progress Toward Problem(s) and Goals/Treatment Plan: alcohol dependence major depression, recurrent continue current treatment continue doxepin for sleep beatris atvick family med treating medical issues/pain discharge this week Estimated Date of D/C: 12/20/16 - Smoking Cessation Smoking Cessation Initiated: Yes
[2016-12-20] MEDS: Lidocaine 5% Patch TD SCH (09:10)
[2016-12-20] MEDS: Amylase/Lipase/Protease 5,000 U ECC PO SCH ×3 (09:11→17:06)
[2016-12-20] MEDS: Multivitamin With Minerals Tab PO SCH (09:11)
[2016-12-20] MEDS: Pantoprazole 20 mg EC Tab PO SCH (09:12)
[2016-12-20] MEDS: Potassium Chloride 20 mEq/15 ml LIQ UD PO SCH ×2 (09:12→17:05)
--- NOTE | 2016-12-20 10:41 | PCM.PYCHPN ---
Psychiatric Progress Note - Psychiatric Progress Note Patient seen today, length of contact: discussed with team Patient Chief Complaint: i am sleeping still Problems Identified/Issues Discussed: pt continues to endorse good sleep. no c/o medication side effects. refusing referral to inpt rehab. feels sore and tired physically. denies any suicidal thoughts. Medical Problems: multiple- f/u by family med Medication Change: Yes (dc ativan) Medical Record Reviewed: Yes Mental Status Examination - Cognitive Function Orientation: Person, Place, Situation, Time Memory: Intact Attention: WNL Concentration: WNL Association: WNL Fund of Knowledge: [facility]N Decription of patient's judgement and insights: fair - Mood Mood: Depressed - Affect Affect: Constricted - Speech Speech: Appropriate - Formal Thought Process Formal Thought Process: No Impairment - Suicidal Ideation Suicidal Ideation: No - Homicidal Ideation Homicidal Ideation: No Goal/Treatment Plan - Goal/Treatment Plan Need for Continued Stay: Remain at risks for inpatient hospitalization, Severe functional impairment Progress Toward Problem(s) and Goals/Treatment Plan: alcohol dependence major depression, recurrent continue current treatment continue doxepin for sleep ativan has been discontinued family med treating medical issues/pain discharge this week Estimated Date of D/C: 12/20/16
--- NOTE | 2016-12-20 11:39 | CP.PCM.PN ---
Subjective - Date & Time of Evaluation Date of Evaluation: 12/20/16 Time of Evaluation: 09:40 - Subjective Subjective: Pt seen and examined while eating breakfast, does not have any complaints. denies abdominal pain, nausea, vomiting. doing well with therapy. psychiatrist and nurses notes reviewed Objective - Vital Signs/Intake and Output Vital Signs (last 24 hours): Temp Pulse Resp BP Pulse Ox 97.7 F 97 H 20 133/84 99 12/20/16 09:14 12/20/16 09:14 12/20/16 09:14 12/20/16 09:15 12/17/16 16:54 - Medications Medications: Current Medications Al Hydrox/Mg Hydrox/Simethicone (Maalox Plus 30 Ml) 30 ml PO Q4 PRN PRN Reason: Dyspepsia Amlodipine Besylate (Norvasc) 10 mg PO DAILY [facility] Last Admin: 12/20/16 09:15 Dose: 10 mg Amylase (Pancrease [id number] U-[id number] [id number] U) 5,000 u PO AC [facility] Last Admin: 12/20/16 09:11 Dose: 5,000 u Diphenhydramine HCl (Benadryl) 50 mg IM Q6 PRN PRN Reason: Extrapyramidal S/S Unable PO Diphenhydramine HCl (Benadryl) 50 mg PO Q6 PRN PRN Reason: Extrapyramidal Symptoms Last Admin: 12/19/16 23:43 Dose: 50 mg Doxepin HCl (Sinequan) 10 mg PO HS [facility] Last Admin: 12/19/16 21:29 Dose: 10 mg Folic Acid (Folic Acid) 1 mg PO DAILY [facility] Last Admin: 12/20/16 09:11 Dose: 1 mg Gabapentin (Neurontin) 400 mg PO HS [facility] Last Admin: 12/19/16 21:29 Dose: 400 mg Guaifenesin (Robitussin) 100 mg PO Q6 PRN PRN Reason: Cough Haloperidol (Haldol) 5 mg PO Q4 PRN PRN Reason: Agitation Haloperidol Lactate (Haldol) 5 mg IM Q4 PRN PRN Reason: Agitation, Unable to Take PO Lidocaine (Lidoderm) 1 ea TD DAILY [facility] Last Admin: 12/20/16 09:10 Dose: 1 ea Lorazepam (Ativan) 2 mg IM Q4 PRN PRN Reason: Anxiety/Agitation,Unable PO Lorazepam (Ativan) 2 mg PO Q4 PRN PRN Reason: Anxiety/Agitation Magnesium Hydroxide (Milk Of Magnesia) 30 ml PO HS PRN PRN Reason: Constipation Multivitamins/Minerals (Therapeutic-M Tab) 1 tab PO DAILY [facility] Last Admin: 12/20/16 09:11 Dose: 1 tab Nicotine (Nicoderm Cq) 1 patch TD DAILY [facility] Last Admin: 12/20/16 09:11 Dose: 1 patch Pantoprazole Sodium (Protonix Ec Tab) 20 mg PO DAILY [facility] Last Admin: 12/20/16 09:12 Dose: 20 mg Potassium Chloride (Potassium Chloride Oral Soln) 20 meq PO BID [facility] Last Admin: 12/20/16 09:12 Dose: 20 meq Quetiapine Fumarate (Seroquel) 50 mg PO HS [facility] Last Admin: 12/19/16 21:29 Dose: 50 mg Sertraline HCl (Zoloft) 100 mg PO DAILY [facility] Last Admin: 12/20/16 09:12 Dose: 100 mg Thiamine HCl (Vitamin B1 Tab) 100 mg PO DAILY [facility] Last Admin: 12/20/16 09:11 Dose: 100 mg Tramadol HCl (Ultram) 50 mg PO Q6 PRN PRN Reason: Pain, moderate (4-7) Last Admin: 12/18/16 17:24 Dose: 50 mg - Labs Labs: 12/17/16 06:30 - Constitutional Appears: Non-toxic, No Acute Distress - Head Exam Head Exam: NORMOCEPHALIC - Eye Exam Eye Exam: Normal appearance - ENT Exam ENT Exam: Mucous Membranes Moist - Respiratory Exam Respiratory Exam: Clear to Ausculation Bilateral, NORMAL BREATHING PATTERN. absent: Rhonchi, Wheezes - Cardiovascular Exam Cardiovascular Exam: REGULAR RHYTHM, +S1, +S2 - GI/Abdominal Exam GI & Abdominal Exam: Soft, Normal Bowel Sounds. absent: Tenderness - Back Exam Back Exam: absent: CVA tenderness (L), CVA tenderness (R) - Neurological Exam Neurological Exam: Alert, Awake, Oriented x3 - Psychiatric Exam Psychiatric exam: Depressed Assessment and Plan - Assessment and Plan (Free Text) Assessment: 56 yo M w PMHx of chronic etoh abuse, HTN, chronic back pain, depression, and anxiety is admitted due to a week-long worsening abdominal pain and likely pancreatitis due to alcohol abuse. Plan: Chronic Pancreatitis -due to Alcohol abuse -pancreases started, well tolerated (12/15/16) Hypokalemia -Acute -Potassium 3.5 -will change KCL 20meq PO daily to BID -will monitor closely -discussed Hypokalemia with psychiatrist, as Seroquel may cause Hypokalemia, will d/c Seroquel as per psych -Urine electrolytes are ordered to evaluate for urinary loses HTN -chronic -Continue Norvasc 10mg PO Daily -will monitor BP Chronic Back Pain -due to nontraumatic hx of L2 compression fracture -s/p kyphoplasty on 09/20/16 -continue Tramadol 50 PO Q6 -continue Lidocaine 5% patch MDD -as per Psych
[2016-12-21] MEDS: Lidocaine 5% Patch TD SCH (08:46)
[2016-12-21] MEDS: Multivitamin With Minerals Tab PO SCH (08:47)
[2016-12-21] MEDS: Potassium Chloride 20 mEq/15 ml LIQ UD PO SCH ×2 (08:47→17:23)
[2016-12-21] MEDS: Pantoprazole 20 mg EC Tab PO SCH (08:48)
--- NOTE | 2016-12-21 08:54 | PCM.PYCHPN ---
Psychiatric Progress Note - Psychiatric Progress Note Patient seen today, length of contact: discussed with team Patient Chief Complaint: i feel a little light headed but it's getting better Problems Identified/Issues Discussed: pt states he is depressed. noted in group to be acknowledging he misses his . energy slowly improving. remains resistant to idea of rehab referral. no c /o medication side effects. Medical Problems: multiple- f/u by family med Medication Change: No ( ) Medical Record Reviewed: Yes Mental Status Examination - Cognitive Function Orientation: Person, Place, Situation, Time Memory: Intact Attention: WNL Concentration: WNL Association: [facility] Fund of Knowledge: [facility] Decription of patient's judgement and insights: fair - Mood Mood: Depressed - Affect Affect: Constricted - Speech Speech: Appropriate - Formal Thought Process Formal Thought Process: No Impairment Psychotic Thoughts and Behaviors: denies a/v hallucinations - Suicidal Ideation Suicidal Ideation: No - Homicidal Ideation Homicidal Ideation: No Goal/Treatment Plan - Goal/Treatment Plan Need for Continued Stay: Remain at risks for inpatient hospitalization, Severe functional impairment Progress Toward Problem(s) and Goals/Treatment Plan: alcohol dependence major depression, recurrent continue current treatment continue doxepin for sleep family med treating medical issues/pain discharge this week Estimated Date of D/C: 12/20/16
[2016-12-21] MEDS: Amylase/Lipase/Protease 5,000 U ECC PO SCH ×2 (15:24→17:37)
[2016-12-22] MEDS: Pantoprazole 20 mg EC Tab PO SCH (08:44)
[2016-12-22] MEDS: Multivitamin With Minerals Tab PO SCH (08:44)
[2016-12-22] MEDS: Amylase/Lipase/Protease 5,000 U ECC PO SCH ×3 (08:45→17:53)
[2016-12-22] MEDS: Potassium Chloride 20 mEq/15 ml LIQ UD PO SCH ×2 (08:45→17:53)
[2016-12-22] MEDS: Lidocaine 5% Patch TD SCH (08:50)
--- NOTE | 2016-12-22 11:01 | PCM.PYCHPN ---
Psychiatric Progress Note - Psychiatric Progress Note Patient seen today, length of contact: discussed with team Patient Chief Complaint: i just need to relax Problems Identified/Issues Discussed: pt endorses feeling down, depressed. states he has low energy. talking more about about his and how much he misses her. he is isolating in his room. he agrees to increase in the zoloft. Medical Problems: multiple- f/u by family med Medication Change: No ( ) Medical Record Reviewed: Yes Mental Status Examination - Cognitive Function Orientation: Person, Place, Situation, Time Memory: Intact Attention: WNL Concentration: WNL Association: WNL Fund of Knowledge: [facility] Decription of patient's judgement and insights: fair - Mood Mood: Depressed - Affect Affect: Constricted - Speech Speech: Appropriate - Formal Thought Process Formal Thought Process: No Impairment Psychotic Thoughts and Behaviors: denies a/v hallucinations - Suicidal Ideation Suicidal Ideation: No - Homicidal Ideation Homicidal Ideation: No Goal/Treatment Plan - Goal/Treatment Plan Need for Continued Stay: Remain at risks for inpatient hospitalization, Severe functional impairment Progress Toward Problem(s) and Goals/Treatment Plan: alcohol dependence major depression, recurrent continue current treatment continue doxepin for sleep increase zoloft to target depression encouraged pt to follow thru with therapy as an outpt family med treating medical issues/pain discharge this week Estimated Date of D/C: 12/20/16
[2016-12-23] MEDS: Amylase/Lipase/Protease 5,000 U ECC PO SCH ×3 (09:12→17:08)
[2016-12-23] MEDS: Pantoprazole 20 mg EC Tab PO SCH (09:12)
[2016-12-23] MEDS: Multivitamin With Minerals Tab PO SCH (09:12)
[2016-12-23] MEDS: Potassium Chloride 20 mEq/15 ml LIQ UD PO SCH ×2 (09:13→17:08)
[2016-12-23] MEDS: Lidocaine 5% Patch TD SCH (09:22)
--- NOTE | 2016-12-23 14:50 | PCM.PYCHPN ---
Psychiatric Progress Note - Psychiatric Progress Note Patient seen today, length of contact: discussed with team Patient Chief Complaint: i feel a little better Problems Identified/Issues Discussed: pt endorses feeling a little better and more hopeful. states he is preparing himself to go home monday. a bit more social now with peers and states he has no side effects from increase in zoloft. Medical Problems: multiple- f/u by family med Medication Change: No ( ) Medical Record Reviewed: Yes Mental Status Examination - Cognitive Function Orientation: Person, Place, Situation, Time Memory: Intact Attention: WNL Concentration: WNL Association: [facility] Fund of Knowledge: [facility] Decription of patient's judgement and insights: fair - Mood Mood: Depressed - Affect Affect: Constricted - Speech Speech: Appropriate - Formal Thought Process Formal Thought Process: No Impairment Psychotic Thoughts and Behaviors: denies a/v hallucinations - Suicidal Ideation Suicidal Ideation: No - Homicidal Ideation Homicidal Ideation: No Goal/Treatment Plan - Goal/Treatment Plan Need for Continued Stay: Remain at risks for inpatient hospitalization, Severe functional impairment Progress Toward Problem(s) and Goals/Treatment Plan: alcohol dependence major depression, recurrent continue current treatment continue doxepin for sleep increase zoloft to 150mg daily to target depression encouraged pt to follow thru with therapy as an outpt family med treating medical issues/pain discharge this week Estimated Date of D/C: 12/20/16
[2016-12-24] MEDS: Multivitamin With Minerals Tab PO SCH (09:35)
[2016-12-24] MEDS: Amylase/Lipase/Protease 5,000 U ECC PO SCH ×3 (09:35→16:50)
[2016-12-24] MEDS: Potassium Chloride 20 mEq/15 ml LIQ UD PO SCH ×2 (09:35→16:51)
[2016-12-24] MEDS: Pantoprazole 20 mg EC Tab PO SCH (09:36)
[2016-12-24] MEDS: Lidocaine 5% Patch TD SCH (09:36)
--- NOTE | 2016-12-24 20:56 | PCM.PYCHPN ---
Psychiatric Progress Note - Psychiatric Progress Note Patient seen today, length of contact: chart reviewed, case discussed with team Patient Chief Complaint: feeling sad, had been drinking improving no c/o w/d Problems Identified/Issues Discussed: alteration in mood alteration in coping Medical Problems: per chart Diagnostic Results: per psychiatry per medicine per psych social worker per recreational therapy Medication Change: No ( ) Medical Record Reviewed: Yes Mental Status Examination - Cognitive Function Orientation: Person, Place, Situation, Time Memory: Intact Attention: WNL Concentration: WNL Association: WNL Fund of Knowledge: [facility] Decription of patient's judgement and insights: somewhat impaired - Mood Mood: Depressed - Affect Affect: Constricted - Speech Speech: Appropriate - Formal Thought Process Formal Thought Process: No Impairment - Homicidal Ideation Homicidal Ideation: No Goal/Treatment Plan - Goal/Treatment Plan Need for Continued Stay: Remain at risks for inpatient hospitalization, Severe functional impairment Progress Toward Problem(s) and Goals/Treatment Plan: inpt miliu adjust medications per clinical status vital signs and clinical observation per protocol and per clinical status discharge planning in progress Estimated Date of D/C: 12/28/16 - Smoking Cessation Smoking Cessation Initiated: No Reason for not providing: deferred
[2016-12-25] MEDS: Lidocaine 5% Patch TD SCH (09:12)
[2016-12-25] MEDS: Amylase/Lipase/Protease 5,000 U ECC PO SCH ×3 (09:13→17:32)
[2016-12-25] MEDS: Multivitamin With Minerals Tab PO SCH (09:13)
[2016-12-25] MEDS: Pantoprazole 20 mg EC Tab PO SCH (09:14)
[2016-12-25] MEDS: Potassium Chloride 20 mEq/15 ml LIQ UD PO SCH ×2 (09:15→17:32)
--- NOTE | 2016-12-25 17:04 | PCM.PYCHPN ---
Psychiatric Progress Note - Psychiatric Progress Note Patient seen today, length of contact: chart reviewed, case discussed with team Patient Chief Complaint: feeling sad, had been drinking improving no c/o w/d Problems Identified/Issues Discussed: alteration in mood alteration in coping Medical Problems: per chart Diagnostic Results: per psychiatry per medicine per community mental health social worker per recreational therapy DSM 5 Symptoms Update: alteration in mood alteration in coping Medication Change: No ( ) Medical Record Reviewed: Yes Consults ordered or reviewed: pt being followed by hospitalist Mental Status Examination - Cognitive Function Orientation: Person, Place, Situation, Time Memory: Intact Attention: WNL Concentration: WNL Association: [facility] Fund of Knowledge: [facility] Decription of patient's judgement and insights: somewhat impaired - Mood Mood: Depressed Additional comments: reportedly improving - Affect Affect: Constricted - Speech Speech: Appropriate - Formal Thought Process Formal Thought Process: No Impairment - Suicidal Ideation Suicidal Ideation: No - Homicidal Ideation Homicidal Ideation: No Goal/Treatment Plan - Goal/Treatment Plan Need for Continued Stay: Remain at risks for inpatient hospitalization, Severe functional impairment Progress Toward Problem(s) and Goals/Treatment Plan: indemetrius rothman adjust medications per clinical status vital signs and clinical observation per protocol and per clinical status pt being followed by hospitalist discharge planning in progress Estimated Date of D/C: 12/28/16 - Smoking Cessation Smoking Cessation Initiated: No Reason for not providing: defers
[2016-12-26] MEDS: Lidocaine 5% Patch TD SCH (08:32)
[2016-12-26] MEDS: Multivitamin With Minerals Tab PO SCH (08:33)
[2016-12-26] MEDS: Amylase/Lipase/Protease 5,000 U ECC PO SCH ×2 (08:33→12:24)
[2016-12-26] MEDS: Pantoprazole 20 mg EC Tab PO SCH (08:33)
[2016-12-26] MEDS: Potassium Chloride 20 mEq/15 ml LIQ UD PO SCH (08:33)
[2016-12-26 08:34] VITALS: BP 152/84; PULSE 90
[2016-12-26 09:05] VITALS: RESP 20; TEMP 97.9
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
== END 2016-12-26 12:45 | disposition home or self-care (01) | DRG 430 ==
LOC: H.PSYCH 12:41
PROVIDERS: ADMIT Psychiatry & Neurology Psychiatry; ATTEND Psychiatry & Neurology Psychiatry
PROC: GZHZZZZ Group Psychotherapy (ICD-10-PCS; principal; 2016-12-15)
PROC: GZ51ZZZ Individual Psychotherapy, Behavioral (ICD-10-PCS; 2016-12-15)
DX: F33.2 Major depressive disorder, recurrent severe without psychotic features (principal); K85.90 Acute pancreatitis without necrosis or infection, unspecified; G40.509 Epileptic seizures related to external causes, not intractable, without status epilepticus; R45.850 Homicidal ideations; J44.9 Chronic obstructive pulmonary disease, unspecified; F10.239 Alcohol dependence with withdrawal, unspecified; E87.6 Hypokalemia; F20.9 Schizophrenia, unspecified; I10 Essential (primary) hypertension; E78.00 Pure hypercholesterolemia, unspecified; F31.9 Bipolar disorder, unspecified; Z79.899 Other long term (current) drug therapy; F17.210 Nicotine dependence, cigarettes, uncomplicated; D64.9 Anemia, unspecified; F41.9 Anxiety disorder, unspecified; G89.29 Other chronic pain; K29.70 Gastritis, unspecified, without bleeding; M51.26 Other intervertebral disc displacement, lumbar region; G47.9 Sleep disorder, unspecified; K86.0 Alcohol-induced chronic pancreatitis

== ENCOUNTER 2017-01-01 12:10 | Observation (INO) | payer OTHER ==
[2017-01-01 12:10] VITALS: BMI 21.5
[2017-01-01] MEDS ORDERED: Multivitamin (MVI) 10 ML, Thiamine 100 MG, Folic Acid 1 MG in Sodium Chloride 0.9% 1,00... IV ONE (12:26)
--- NOTE | 2017-01-01 12:34 | ED PDOC ---
HPI: Abdomen Time Seen by Provider: 01/01/17 12:21 Chief Complaint (Nursing): Abdominal Pain History Per: Patient History/Exam Limitations: no limitations Onset/Duration Of Symptoms: Gradual (today) Current Symptoms Are (Timing): Still Present Severity: Moderate Location Of Pain/Discomfort: Diffuse Quality Of Discomfort: Dull, Aching Associated Symptoms: Nausea, Vomiting, Diarrhea. denies: Fever, Chills, Back Pain, Chest Pain, Constipation, Urinary Symptoms Exacerbating Factors: None Alleviating Factors: None Last Bowel Movement: Today Additional History Per: Patient Additional Complaint(s): Pt brought in by ambulance from [facility] for generalized abdominal pain since this morning. +N/V/D. similar sx in the past due to pancreatiits last hospital admission for this approx 2 weeks ago pt admits to drinking etoh Past Medical History Reviewed: Historical Data, Nursing Documentation, Vital Signs Vital Signs: Last Vital Signs Temp 97.3 F L 01/01/17 15:03 Pulse 94 H 01/01/17 15:03 Resp 16 01/01/17 15:03 BP 137/85 01/01/17 15:03 Pulse Ox 97 01/01/17 12:34 - Medical History PMH: Anemia, Anxiety, Asthma, Back Problems, Bipolar Disorder, COPD, Depression , Gastritis (secondary to ETOH), GERD, HTN, Hypercholesterolemia, Pancreatitis ( secondary to ETOH), Schizophrenia, Seizures (secondary to ETOH withdrawal), Chronic Pain (low back pain ) Denies: Alzheimer's Disease, Atrial Fibrillation, Bronchitis, Cardia Arrhythmia, CHF, Dementia, Diabetes, Emphysema, Hepatitis, HIV, Migraine, Mitral Valve Prolapse, Multiple Sclerosis, Parkinson's Disease, Peripheral Edema , Pneumonia, Pulmonary Embolism, Chronic Kidney Disease, Sexually Transmitted Disease, Sleep Apnea - Surgical History Surgical History: Back Surgery (4 weeks ago) Denies: Pacemaker - Family History Family History: States: Diabetes - Living Arrangements Living Arrangements: With Friends/Others - Social History Current smoker - smoking cessation education provided: Yes Alcohol: > 2 Drinks/Day - Immunization History Hx Tetanus Toxoid Vaccination: Yes (As per patient, TDaP uptodate ( about 3 years ago)) Hx Influenza Vaccination: No Hx Pneumococcal Vaccination: No - Home Medications Home Medications: Ambulatory Orders Medication Instructions Recorded Doxepin [Sinequan] 10 mg PO HS #30 cap 12/19/16 Folic Acid 1 mg PO DAILY #30 tab 12/19/16 Gabapentin [Neurontin] 400 mg PO HS #30 cap 12/19/16 QUEtiapine [SEROquel] 50 mg PO HS #30 tab 12/19/16 Sertraline [Zoloft] 100 mg PO DAILY #30 tab 12/19/16 Thiamine [Vitamin B1 Tab] 100 mg PO DAILY #30 tab 12/19/16 amLODIPine [Norvasc] 10 mg PO DAILY #30 tab 12/19/16 traMADol [Ultram] 50 mg PO Q8 PRN #15 tab 12/27/16 Albuterol HFA [Ventolin HFA 90 1 puff IH [id number] PRN 01/01/17 mcg/actuation (8 g)] Esomeprazole Magnesium [Nexium] 20 mg PO DAILY 01/01/17 M-Vit,Tx,Iron,Mins/Calc/Folic 1 tab PO DAILY 01/01/17 [Thera-M Caplet] - Allergies Allergies/Adverse Reactions: Allergies Allergy/AdvReac Type Severity Reaction Status Date / Time No Known Allergies Allergy Verified 11/28/16 16:47 Review of Systems ROS Statement: Except As Marked, All Systems Reviewed And Found Negative Constitutional: Negative for: Fever, Chills Cardiovascular: Negative for: Chest Pain, Palpitations Respiratory: Negative for: Cough, Shortness of Breath Gastrointestinal: Positive for: Nausea, Vomiting, Abdominal Pain, Diarrhea Physical Exam - Reviewed Nursing Documentation Reviewed: Yes Vital Signs Reviewed: Yes - Physical Exam Appears: Positive for: Uncomfortable Head Exam: Positive for: ATRAUMATIC, NORMAL INSPECTION, NORMOCEPHALIC Skin: Positive for: Normal Color, Warm, Dry Eye Exam: Positive for: Normal appearance, EOMI, PERRL Neck: Positive for: Normal, Painless ROM, Supple Cardiovascular/Chest: Positive for: Regular Rate, Rhythm, Chest Non Tender. Negative for: Edema, Gallop, Murmur, Bradycardia, Tachycardia Respiratory: Positive for: Normal Breath Sounds. Negative for: Decreased Breath Sounds, Accessory Muscle Use, Crackles, Rales, Rhonchi, Stridor, Wheezing , Respiratory Distress Gastrointestinal/Abdominal: Positive for: Normal Exam, Bowel Sounds, Soft. Negative for: Tenderness Back: Positive for: Normal Inspection. Negative for: L CVA Tenderness, R CVA Tenderness Extremity: Positive for: Normal ROM. Negative for: Tenderness, Pedal Edema Neurologic/Psych: Positive for: Alert, chief librarian music department II-XII, Oriented. Negative for: Motor/Sensory Deficits - Laboratory Results Result Diagrams: 01/01/17 12:39 01/01/17 12:39 - ECG ECG: Positive for: Interpreted By Me ECG Rhythm: Positive for: Normal QRS, Normal ST Segment, Sinus Rhythm. Negative for: ST/T Changes O2 Sat by Pulse Oximetry: 97 Pulse Ox Interpretation: Normal Disposition - Clinical Impression Clinical Impression: Alcohol intoxication, Hepatitis - Patient ED Disposition Is Patient to be Admitted: No Counseled Patient/Family Regarding: Studies Performed, Diagnosis, Need For Followup - Disposition Disposition Time: 14:00 Condition: STABLE - Pt Status Changed To: Hospital Disposition Of: Observation - POA Present On Arrival: None
[2017-01-01 12:55] LABS: ALB/GLOB RATIO 1.6 (1.0-2.1); ALKALINE PHOSPHATASE 221 U/L (38-126); ALT/SGPT 667 U/L (21-72); AMYLASE 86 U/L (30-110); BILIRUBIN,TOTAL 0.8 mg/dl (0.2-1.3); BLOOD UREA NITROGEN 13 mg/dl (9-20); CALCIUM 8.9 mg/dL (8.4-10.2); CARBON DIOXIDE 25 mmol/L (22-30); CHLORIDE 101 mmol/L (98-107); GFR AFRICAN-AMERICAN > 60; GLUCOSE,RANDOM 157 mg/dL (75-110); LIPASE 194 U/L (23-300); SODIUM 142 mmol/l (132-148); TOTAL PROTEIN 7.9 G/DL (6.3-8.2)
[2017-01-01 12:57] LABS: POTASSIUM 4.3 MMOL/L (3.6-5.0)
[2017-01-01 12:59] LABS: BASO % 0.6 % (0.0-2.0); EOS # 0.1 K/uL (0.0-0.7); EOS % 1.4 % (0.0-4.0); HEMATOCRIT 47.8 % (35.0-51.0); LYMPH # 2.9 K/uL (1.0-4.3); LYMPH % 36.6 % (20.0-40.0); MEAN CELL VOLUME 96.1 fl (80.0-94.0); MEAN CORPUSCULAR HEMOGLOBIN 32.2 pg (27.0-31.0); MEAN CORPUSCULAR HGB CONC 33.5 g/dL (33.0-37.0); MEAN PLATELET VOLUME 7.4 fl (7.2-11.7); MONO # 0.7 K/uL (0.0-0.8); MONO % 8.3 % (0.0-10.0); NEUT # 4.2 K/uL (1.8-7.0); NEUT % 53.1 % (50.0-75.0); NRBC % 0.4 % (0.0-0.0); RED CELL DISTRIBUTION WIDTH 18.8 % (11.5-14.5); WHITE BLOOD COUNT 7.9 K/uL (4.8-10.8)
[2017-01-01 13:02] LABS: AST/SGOT 840 U/L (17-59)
[2017-01-01 13:34] LABS: RBC URINE 1 /hpf (0-3); URINE BILIRUBIN NEGATIVE (NEGATIVE); URINE BLOOD NEGATIVE (NEGATIVE); URINE COLOR YELLOW (YELLOW); URINE GLUCOSE (UA) NEG (Normal); URINE KETONE NEGATIVE (NEGATIVE); URINE LEUKOCYTE ESTERASE NEG Leu/uL (Negative); URINE PROTEIN NEGATIVE (NEGATIVE); URINE UROBILINOGEN 0.2-1.0 mg/dL (0.2-1.0); WBC URINE < 1 /hpf (0-5)
[2017-01-01] MEDS ORDERED: Albuterol HFA 90 mcg/actuation (8 g) IH PRN (16:05)
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
[2017-01-01] MEDS ORDERED: Iodixanol 320 MG/ML 100 ML BOTTLE IV ONE (17:20)
[2017-01-01] MEDS ORDERED: Sodium Chloride 0.9% 50 ML IV ONE (17:21)
[2017-01-01] MEDS: Sodium Chloride 0.9% 1,000 ML IV SCH (17:45)
[2017-01-02] MEDS: Sodium Chloride 0.9% 1,000 ML IV SCH ×2 (01:32→12:30)
[2017-01-02 06:00] LABS: HEMATOCRIT 41.2 % (35.0-51.0); MEAN CELL VOLUME 95.2 fl (80.0-94.0); MEAN CORPUSCULAR HEMOGLOBIN 32.1 pg (27.0-31.0); MEAN CORPUSCULAR HGB CONC 33.8 g/dL (33.0-37.0); RED CELL DISTRIBUTION WIDTH 18.7 % (11.5-14.5); WHITE BLOOD COUNT 6.3 K/uL (4.8-10.8)
[2017-01-02 06:20] LABS: ALB/GLOB RATIO 1.4 (1.0-2.1); ALKALINE PHOSPHATASE 207 U/L (38-126); ALT/SGPT 645 U/L (21-72); AST/SGOT 711 U/L (17-59); BILIRUBIN,TOTAL 2.1 mg/dl (0.2-1.3); BLOOD UREA NITROGEN 11 mg/dl (9-20); CALCIUM 7.8 mg/dL (8.4-10.2); CARBON DIOXIDE 23 mmol/L (22-30); CHLORIDE 103 mmol/L (98-107); GFR AFRICAN-AMERICAN > 60; GLUCOSE,RANDOM 101 mg/dL (75-110); MAGNESIUM 1.3 MG/DL (1.6-2.3); POTASSIUM 3.5 MMOL/L (3.6-5.0); SODIUM 135 mmol/l (132-148); TOTAL PROTEIN 6.4 G/DL (6.3-8.2)
--- NOTE | 2017-01-02 08:10 | CT ---
PROCEDURE: CT Chest with contrast (Pulmonary Angiogram) HISTORY: cp r/o pe COMPARISON: None available. TECHNIQUE: Axial computed tomography images were obtained of the chest in the pulmonary arterial phase of enhancement using pulmonary embolus protocol. Coronal and sagittal reformatted images were created and reviewed. Intravenous contrast dose: Visipaque 320, 99 cc Radiation dose: Total exam DLP = 429 mGy-cm. This CT exam was performed using one or more of the following dose reduction techniques: Automated exposure control, adjustment of the mA and/or kV according to patient size, and/or use of iterative reconstruction technique. FINDINGS: PULMONARY ARTERIES: Unremarkable. No pulmonary embolism. AORTA: No acute findings. No thoracic aortic aneurysm. LUNGS: Unremarkable. No nodule, mass or pulmonary consolidation. PLEURAL SPACES: Unremarkable. No effusion or pneuomothorax. HEART: Unremarkable. No cardiomegaly. No significant pericardial effusion. LYMPH NODES: No lymphadenopathy. BONES, CHEST WALL: Unremarkable. No fracture or destructive lesion OTHER FINDINGS: Unremarkable. IMPRESSION: 1. No CT evidence to suggest acute pulmonary embolus. 2. No infiltrate pneumothorax pleural pericardial effusion or cardiomegaly. The pulmonary vascular pattern appears normal as imaged. Concordant preliminary report from Dr. Farhana Amanda.
[2017-01-02] MEDS: Enoxaparin 40 mg Syringe SC SCH (09:09)
[2017-01-02] MEDS: Pantoprazole 20 mg EC Tab PO SCH (09:10)
--- NOTE | 2017-01-02 10:07 | CP.PCM.PN ---
Subjective - Date & Time of Evaluation Date of Evaluation: 01/02/17 Time of Evaluation: 07:45 - Subjective Subjective: Patient seen at bedside today. Stated that his abdominal pain had improved as it is now a 5/10. He reported that his appetite is back as he is feeling "very hungry." Patient denied any nausea, vomiting, cough, chest pain, SOB, or fever. The patient denies any auditory or visual hallucinations, and homicidal or suicidal ideation. The patient reported having a sore throat. . Objective - Vital Signs/Intake and Output Vital Signs (last 24 hours): Temp Pulse Resp BP Pulse Ox 98.6 F 92 H 18 158/81 H 97 01/02/17 08:00 01/02/17 09:10 01/02/17 08:00 01/02/17 09:10 01/02/17 08:00 Intake and Output: 01/02/17 01/02/17 06:59 18:59 Intake Total 1350 Balance 1350 - Medications Medications: Current Medications Albuterol (Ventolin Hfa 90 Mcg/Actuation (8 G)) 1 puff IH Q6H PRN PRN Reason: Shortness of Breath Amlodipine Besylate (Norvasc) 10 mg PO DAILY [facility] Last Admin: 01/02/17 09:10 Dose: 10 mg Chlordiazepoxide (Librium) 50 mg PO Q6 [facility] Last Admin: 01/02/17 09:53 Dose: 50 mg Doxepin HCl (Sinequan) 10 mg PO HS [facility] Last Admin: 01/01/17 23:11 Dose: 10 mg Enoxaparin Sodium (Lovenox) 40 mg SC DAILY [facility] PRN Reason: Protocol Last Admin: 01/02/17 09:09 Dose: 40 mg Folic Acid (Folic Acid) 1 mg PO DAILY [facility] Last Admin: 01/02/17 09:09 Dose: 1 mg Gabapentin (Neurontin) 400 mg PO HS [facility] Last Admin: 01/01/17 23:11 Dose: 400 mg Home Med (Esomeprazole Magnesium [Nexium]) 20 mg PO DAILY [facility] Sodium Chloride (Sodium Chloride 0.9%) 1,000 mls @ 150 mls/hr IV .Q6H40M [facility] Stop: 01/02/17 16:20 Last Admin: 01/02/17 01:32 Dose: 150 mls/hr Lorazepam (Ativan) 2 mg IVP Q6 PRN PRN Reason: Symptoms of alcohol withdrawl Last Admin: 01/01/17 19:16 Dose: 2 mg Nicotine (Nicoderm Cq) 1 patch TD DAILY [facility] Last Admin: 01/02/17 09:09 Dose: 1 patch Ondansetron HCl (Zofran Inj) 4 mg IVP Q6 PRN PRN Reason: Nausea/Vomiting Last Admin: 01/01/17 16:28 Dose: 4 mg Pantoprazole Sodium (Protonix Ec Tab) 20 mg PO DAILY [facility] Last Admin: 01/02/17 09:10 Dose: 20 mg Quetiapine Fumarate (Seroquel) 50 mg PO HS [facility] Last Admin: 01/01/17 23:11 Dose: 50 mg Sertraline HCl (Zoloft) 100 mg PO DAILY [facility] Last Admin: 01/02/17 09:10 Dose: 100 mg Thiamine HCl (Vitamin B1 Tab) 100 mg PO DAILY [facility] Last Admin: 01/02/17 09:10 Dose: 100 mg Tramadol HCl (Ultram) 50 mg PO Q8 PRN PRN Reason: Pain, moderate (4-7) - Labs Labs: 01/02/17 05:15 01/02/17 05:15 - Constitutional Appears: No Acute Distress - Head Exam Head Exam: ATRAUMATIC, NORMOCEPHALIC - Eye Exam Eye Exam: Scleral icterus Pupil Exam: PERRL - Neck Exam Neck Exam: Full ROM, Normal Inspection - Respiratory Exam Respiratory Exam: Clear to Ausculation Bilateral, NORMAL BREATHING PATTERN - Cardiovascular Exam Cardiovascular Exam: REGULAR RHYTHM, +S1, +S2 - GI/Abdominal Exam GI & Abdominal Exam: Tenderness, Normal Bowel Sounds Additional comments: Tenderness in the RUQ and epigastrium. No rebound or guarding. - Extremities Exam Extremities Exam: Normal Inspection Assessment and Plan - Assessment and Plan (Free Text) Assessment: The patient is a 56 yo M with a PMH significant for chronic ETOH abuse, HTN, acute pancreatitis, depression, and COPD who presented to the ED due to diffuse abdominal pain after a night of heavy drinking. The patient currently reports that he is feeling much better as his abdominal pain has improved significantly. Plan: 1) Abdominal pain and intractable vomiting within setting of etoh/withdraw - Pain has now improved, pt reports he wants to eat. - Amylase/Lipase: WNL - AST/ALT: 840/667 - U tox: alcohol: 208 - Alk phos:221 - Ativan 2mg IVP Q6 PRN for etoh withdrawal - folic acid 1mg PO daily - Thiamine 100 mg PO daily - CIWA score: 0 2) HTN Norvasc 5mg PO - F/U: BP 3) Chest pain EKG: WNL Troponin x1 neg 4) Major depression Continue psych medications 5) SCD Prophylaxis - Lovenox 40mg SC 6. Diet advance to hearty healthy , as pt was already eating solid food as off this morning.
[2017-01-03 06:27] LABS: ALB/GLOB RATIO 1.5 (1.0-2.1); ALKALINE PHOSPHATASE 239 U/L (38-126); ALT/SGPT 493 U/L (21-72); AST/SGOT 352 U/L (17-59); BILIRUBIN,TOTAL 2.3 mg/dl (0.2-1.3); BLOOD UREA NITROGEN 8 mg/dl (9-20); CALCIUM 8.6 mg/dL (8.4-10.2); CARBON DIOXIDE 25 mmol/L (22-30); CHLORIDE 100 mmol/L (98-107); GFR AFRICAN-AMERICAN > 60; GLUCOSE,RANDOM 129 mg/dL (75-110); POTASSIUM 3.7 MMOL/L (3.6-5.0); SODIUM 133 mmol/l (132-148); TOTAL PROTEIN 6.7 G/DL (6.3-8.2)
[2017-01-03] MEDS ORDERED: Amylase/Lipase/Protease 5,000 U ECC PO SCH (09:00)
[2017-01-03] MEDS: Enoxaparin 40 mg Syringe SC SCH (09:05)
[2017-01-03] MEDS: Pantoprazole 20 mg EC Tab PO SCH (09:06)
--- NOTE | 2017-01-03 12:00 | CP.PCM.DIS ---
Provider - Provider Date of Admission: 01/01/17 14:33 Attending physician: Cande Palacios MD Time Spent in preparation of Discharge (in minutes): 30 Diagnosis - Discharge Diagnosis (1) Gastritis Status: Resolved (2) Chest pain Status: Resolved (3) Transaminitis Status: Resolved Hospital Course - Lab Results Lab Results: Most Recent Lab Values WBC 6.3 K/uL (4.8-10.8) 01/02/17 05:15 RBC 4.33 Mil/uL (4.40-5.90) L 01/02/17 05:15 Hgb 13.9 g/dL (12.0-18.0) D 01/02/17 05:15 Hct 41.2 % (35.0-51.0) 01/02/17 05:15 MCV 95.2 fl (80.0-94.0) H 01/02/17 05:15 MCH 32.1 pg (27.0-31.0) H 01/02/17 05:15 MCHC 33.8 g/dL (33.0-37.0) 01/02/17 05:15 RDW 18.7 % (11.5-14.5) H 01/02/17 05:15 Plt Count 332 K/uL (130-400) D 01/02/17 05:15 MPV 7.4 fl (7.2-11.7) 01/01/17 12:39 Neut % (Auto) 53.1 % (50.0-75.0) 01/01/17 12:39 Lymph % (Auto) 36.6 % (20.0-40.0) 01/01/17 12:39 [place] % (Auto) 8.3 % (0.0-10.0) 01/01/17 12:39 Eos % (Auto) 1.4 % (0.0-4.0) 01/01/17 12:39 Baso % (Auto) 0.6 % (0.0-2.0) 01/01/17 12:39 Neut # 4.2 K/uL (1.8-7.0) 01/01/17 12:39 Lymph # 2.9 K/uL (1.0-4.3) 01/01/17 12:39 [place] # 0.7 K/uL (0.0-0.8) 01/01/17 12:39 Eos # 0.1 K/uL (0.0-0.7) 01/01/17 12:39 Baso # 0.0 K/uL (0.0-0.2) 01/01/17 12:39 Sodium 133 mmol/l (132-148) 01/03/17 05:15 Potassium 3.7 MMOL/L (3.6-5.0) 01/03/17 05:15 Chloride 100 mmol/L (98-107) 01/03/17 05:15 Carbon Dioxide 25 mmol/L (22-30) 01/03/17 05:15 Anion Gap 12 (10-20) 01/03/17 05:15 BUN 8 mg/dl (9-20) L 01/03/17 05:15 Creatinine 0.7 mg/dL (0.8-1.5) L 01/03/17 05:15 Est GFR ( Amer) > 60 01/03/17 05:15 Est GFR (Non-Af Amer) > 60 01/03/17 05:15 Random Glucose 129 mg/dL (75-110) H 01/03/17 05:15 Calcium 8.6 mg/dL (8.4-10.2) 01/03/17 05:15 Magnesium 1.3 MG/DL (1.6-2.3) L 01/02/17 05:15 Total Bilirubin 2.3 mg/dl (0.2-1.3) H 01/03/17 05:15 AST 352 U/L (17-59) H D 01/03/17 05:15 ALT 493 U/L (21-72) H D 01/03/17 05:15 Alkaline Phosphatase 239 U/L (38-126) H 01/03/17 05:15 Troponin I < 0.0120 ng/mL (0.00-0.120) 01/01/17 12:39 Total Protein 6.7 G/DL (6.3-8.2) 01/03/17 05:15 Albumin 4.0 g/dL (3.5-5.0) 01/03/17 05:15 Globulin 2.7 gm/dL (2.2-3.9) 01/03/17 05:15 Albumin/Globulin Ratio 1.5 (1.0-2.1) 01/03/17 05:15 Amylase 86 U/L (30-110) 01/01/17 12:39 Lipase 194 U/L (23-300) 01/01/17 12:39 Urine Color Yellow (YELLOW) 01/01/17 13:00 Urine Clarity Slighty-cloudy (Clear) 01/01/17 13:00 Urine pH 6.0 (5.0-8.0) 01/01/17 13:00 Ur Specific [place] 1.018 (1.003-1.030) 01/01/17 13:00 Urine Protein Negative mg/dL (NEGATIVE) 01/01/17 13:00 Urine Glucose (UA) Neg mg/dL (Normal) 01/01/17 13:00 Urine Ketones Negative mg/dL (NEGATIVE) 01/01/17 13:00 Urine Blood Negative (NEGATIVE) 01/01/17 13:00 Urine Nitrate Negative (NEGATIVE) 01/01/17 13:00 Urine Bilirubin Negative (NEGATIVE) 01/01/17 13:00 Urine Urobilinogen 0.2-1.0 mg/dL (0.2-1.0) 01/01/17 13:00 Ur Leukocyte Esterase Neg Dylan/uL (Negative) 01/01/17 13:00 Urine RBC (Auto) 1 /hpf (0-3) 01/01/17 13:00 Urine Microscopic WBC < 1 /hpf (0-5) 01/01/17 13:00 Ur Squamous Epith Cells < 1 /hpf (0-5) 01/01/17 13:00 Amorphous Sediment Rare /ul (<OCC) H 01/01/17 13:00 Urine Opiates Screen Negative (NEGATIVE) 01/01/17 13:00 Urine Methadone Screen Negative (NEGATIVE) 01/01/17 13:00 Ur Barbiturates Screen Negative (NEGATIVE) 01/01/17 13:00 Ur Phencyclidine Scrn Negative (NEGATIVE) 01/01/17 13:00 Ur Amphetamines Screen Negative (NEGATIVE) 01/01/17 13:00 U Benzodiazepines Scrn Negative (NEGATIVE) 01/01/17 13:00 U Oth Cocaine Metabols Negative (NEGATIVE) 01/01/17 13:00 U Cannabinoids Screen Negative (NEGATIVE) 01/01/17 13:00 Alcohol, Quantitative 208 mg/dl (0-10) H 01/01/17 14:36 - Hospital Course Hospital Course: Admission date:01/01 17 Discharge Date: 01/03/17 Discharge Diagnosis: Gastritis secondary to Acute Alcohol Intoxication Consultations: None Procedures: None Complications: None History and Hospital Course: Pt is a 56 yo male w/ PMH of chronic etoh abuse, HTN COPD, depression, anxiety, and asthma and was admitted for abdominal pain and intractable NBNB vomiting in the setting of acute ETOH intoxication with associated transaminitis. He also found to be in acute alcohol withdrawal. During his hospital stay, the patient complained for chest pain. ECG was negative for ischemic changes and troponin was negative. Chest CT was negative for a pulmonary thrombus. On Discharge, patient had minimal abdominal pain, can ambulate without discomfort, and is tolerating his diet well. He is not in active withdrawal and liver enzyme are trending down. Medication at Discharge: Amodipine Besylate (Norvasc) 10mg PO daily Amylase (Pancrease 18701, U-5000 U-30151T) 5000 units PO Daily Doxepin Hcl (Sinequan) 10mg PO HS CHARLINE Folic Acid 1mg PO daily Gabapentin (Neurontin) 400mg PO HS PAntaprazole Sodium (Protonix) 20mg PO Daily Quetapine Fumurate 50 mg PO HS Setraline 100mg PO Daily Thiamine Hcl 100mg PO Daily Discharge Plan: Condition Upon Discharge Activity Level: Ambulating without assistance Diet: Regular Diet Date of next Appt: Appt at January 17 with Moustapha Abernathy, Pt is aware and has verbalized plans to f/u Issues to be addressed at follow up: Transaminittis, ETOH Abuse - Date & Time of H&P Date of H&P: 01/02/16 Time of H&P: 16:20 Discharge Exam - Head Exam Head Exam: ATRAUMATIC, NORMOCEPHALIC - ENT Exam ENT Exam: Mucous Membranes Moist - Respiratory Exam Respiratory Exam: absent: Accessory Muscle Use, Chest Wall Tenderness, Rales, Wheezes, Respiratory Distress - Cardiovascular Exam Cardiovascular Exam: REGULAR RHYTHM, +S1, +S2. absent: Diastolic murmur, Systolic Murmur - GI/Abdominal Exam GI & Abdominal Exam: Soft. absent: Distended, Firm, Guarding, Mass, Organomegaly, Tenderness - Back Exam Back exam: absent: CVA tenderness (R) - Neurological Exam Neurological exam: Alert, Altered Discharge Plan - Discharge Medications Prescriptions: Amylase/Lipase/Protease [Pancrease 60946 U-5000 U-20931 U] 5,000 unit PO DAILY # 30 ecc - Follow Up Plan Condition: STABLE Disposition: HOME/ ROUTINE Instructions: Alcohol Intoxication (DC), Alcohol Withdrawal (DC)
[2017-01-03 12:25] VITALS: BP 135/78; PULSE 92; RESP 18; TEMP 98; O2SAT 96
--- NOTE | 2017-01-04 18:39 | CARD ---
APPROVED REPORT EKG Measurement Heart [id number] <Conclusion> Normal sinus rhythm Left axis deviation Abnormal ECG
== END 2017-01-03 12:56 | disposition home or self-care (01) ==
LOC: H.ER 12:10 → H.ERHOLD 14:33 → H.TEL 21:58
PROVIDERS: ADMIT Family Medicine Geriatric Medicine; ATTEND Family Medicine Geriatric Medicine
DX: K29.20 Alcoholic gastritis without bleeding (principal); E11.9 Type 2 diabetes mellitus without complications; E78.00 Pure hypercholesterolemia, unspecified; F10.239 Alcohol dependence with withdrawal, unspecified; F17.200 Nicotine dependence, unspecified, uncomplicated; F20.9 Schizophrenia, unspecified; F31.9 Bipolar disorder, unspecified; I10 Essential (primary) hypertension; J44.9 Chronic obstructive pulmonary disease, unspecified; K21.9 Gastro-esophageal reflux disease without esophagitis; M54.5 Low back pain; K75.9 Inflammatory liver disease, unspecified; Z79.899 Other long term (current) drug therapy; D64.9 Anemia, unspecified; F41.9 Anxiety disorder, unspecified; G40.509 Epileptic seizures related to external causes, not intractable, without status epilepticus; J02.9 Acute pharyngitis, unspecified; R07.9 Chest pain, unspecified

== ENCOUNTER 2017-01-06 14:17 | Emergency (ER) | payer OTHER ==
[2017-01-06 14:22] VITALS: BP 124/75; PULSE 95; RESP 16; TEMP 98.8; O2SAT 95
[2017-01-06 14:23] VITALS: BMI 30.9
--- NOTE | 2017-01-06 14:36 | ED PDOC ---
HPI: Psych/Substance Abuse Time Seen by Provider: 01/06/17 14:26 Chief Complaint (Provider): ETOH ED Caveat: Intoxicated History Per: EMS History/Exam Limitations: intoxication Onset/Duration Of Symptoms: Mins Current Symptoms Are (Timing): Still Present Modifying Factor(s): Alcohol Additional Complaint(s): The patient is a 56yo male, brought in by EMS for evaluation s/p discovering patient publicly intoxicated. Patient currently offers no medical complaints. Past Medical History Reviewed: Historical Data, Nursing Documentation, Vital Signs Vital Signs: Last Vital Signs Temp 98.8 F 01/06/17 14:21 Pulse 95 H 01/06/17 14:21 Resp 16 01/06/17 14:21 BP 124/75 01/06/17 14:21 Pulse Ox 95 01/06/17 14:21 - Medical History PMH: Anemia, Anxiety, Asthma, Back Problems, Bipolar Disorder, COPD, Depression , Gastritis (secondary to ETOH), GERD, HTN, Hypercholesterolemia, Pancreatitis ( secondary to ETOH), Schizophrenia, Seizures (secondary to ETOH withdrawal), Chronic Pain (low back pain ) Denies: Alzheimer's Disease, Atrial Fibrillation, Bronchitis, Cardia Arrhythmia, CHF, Dementia, Diabetes, Emphysema, Hepatitis, HIV, Migraine, Mitral Valve Prolapse, Multiple Sclerosis, Parkinson's Disease, Peripheral Edema , Pneumonia, Pulmonary Embolism, Chronic Kidney Disease, Sexually Transmitted Disease, Sleep Apnea - Surgical History Surgical History: Back Surgery (4 weeks ago) Denies: Pacemaker - Family History Family History: States: Diabetes - Immunization History Hx Tetanus Toxoid Vaccination: Yes (As per patient, TDaP uptodate ( about 3 years ago)) Hx Influenza Vaccination: No Hx Pneumococcal Vaccination: No - Home Medications Home Medications: Ambulatory Orders Medication Instructions Recorded Doxepin [Sinequan] 10 mg PO HS #30 cap 12/19/16 Folic Acid 1 mg PO DAILY #30 tab 12/19/16 Gabapentin [Neurontin] 400 mg PO HS #30 cap 12/19/16 QUEtiapine [SEROquel] 50 mg PO HS #30 tab 12/19/16 Sertraline [Zoloft] 100 mg PO DAILY #30 tab 12/19/16 Thiamine [Vitamin B1 Tab] 100 mg PO DAILY #30 tab 12/19/16 amLODIPine [Norvasc] 10 mg PO DAILY #30 tab 07/17/17 traMADol [Ultram] 50 mg PO Q8 PRN #15 tab 12/27/16 Albuterol HFA [Ventolin HFA 90 1 puff IH [id number] PRN 01/01/17 mcg/actuation (8 g)] Esomeprazole Magnesium [Nexium] 20 mg PO DAILY 01/01/17 M-Vit,Tx,Iron,Mins/Calc/Folic 1 tab PO DAILY 01/01/17 [Thera-M Caplet] Amylase/Lipase/Protease [Pancrease 5,000 unit PO DAILY #30 ecc 01/03/17 38380 U-5000 U-36533 U] - Allergies Allergies/Adverse Reactions: Allergies Allergy/AdvReac Type Severity Reaction Status Date / Time No Known Allergies Allergy Verified 11/28/16 16:47 Review of Systems Review Of Systems: ROS cannot be obtained secondary to pt's inabilty to answer questions. (patient acutely intoxicated) Physical Exam - Reviewed Nursing Documentation Reviewed: Yes Vital Signs Reviewed: Yes - Physical Exam Head Exam: Positive for: ATRAUMATIC, NORMAL INSPECTION, NORMOCEPHALIC Skin: Positive for: Normal Color Respiratory: Negative for: Respiratory Distress Neurologic/Psych: Positive for: Alert, Oriented, Gait (unsteady) - Laboratory Results Result Diagrams: 01/06/17 14:43 01/06/17 14:43 - ECG ECG: Positive for: Interpreted By Me, Viewed By Me ECG Rhythm: Positive for: Sinus Rhythm, Right Bundle Branch Block. Negative for : ST/T Changes Interpretation Of ECG: No axis changes O2 Sat by Pulse Oximetry: 95 (RA) Pulse Ox Interpretation: Normal Medical Decision Making Medical Decision Making: Time: 1426 Impression: ETOH intoxication Plan: -- Labs -- CXR -- ED observation pending clinical sobreity Reassess Scribe Attestation: Documented by Roxana Lipscomb acting as a scribe for ANISH Romero Provider Attestation: All medical record entries made by the Scribe were at my direction and personally dictated by me. I have reviewed the chart and agree that the record accurately reflects my personal performance of the history, physical exam, medical decision making, and the department course for this patient. I have also personally directed, reviewed, and agree with the discharge instructions and disposition. ED OBSERVATION Date of observation admission: 08/04/17 Time of observation admission: 14:36 - Observation admission statement Patient is being placed in observation because:: patient acutely intoxicated - Goals of Observation Goals of observation are:: awaiting clinical sobriety - Progress Note Progress Note: 01/06/17 16:41 Patient resting in room, no acute distress. 01/06/17 18:05 Patient awake and alert with steady gait. Stable for d/c home. Disposition - Clinical Impression Clinical Impression: Alcohol use - Patient ED Disposition Is Patient to be Admitted: No - Disposition Disposition: Routine/Home Disposition Time: 18:07 Condition: STABLE Instructions: Alcohol Intoxication (ED) Forms: [facility] (Peruvian)
[2017-01-06 14:51] LABS: BASO # 0.1 K/uL (0.0-0.2); BASO % 1.3 % (0.0-2.0); EOS # 0.3 K/uL (0.0-0.7); EOS % 3.7 % (0.0-4.0); HEMOGLOBIN 14.8 g/dL (12.0-18.0); LYMPH # 4.5 K/uL (1.0-4.3); LYMPH % 48.8 % (20.0-40.0); MEAN CELL VOLUME 95.6 fl (80.0-94.0); MEAN CORPUSCULAR HEMOGLOBIN 32.3 pg (27.0-31.0); MEAN CORPUSCULAR HGB CONC 33.8 g/dL (33.0-37.0); MEAN PLATELET VOLUME 8.1 fl (7.2-11.7); MONO # 0.5 K/uL (0.0-0.8); NEUT # 3.8 K/uL (1.8-7.0); NEUT % 41.2 % (50.0-75.0); RBC 4.59 Mil/uL (4.40-5.90); RED CELL DISTRIBUTION WIDTH 18.6 % (11.5-14.5); WHITE BLOOD COUNT 9.3 K/uL (4.8-10.8)
[2017-01-06 15:09] LABS: ALB/GLOB RATIO 1.4 (1.0-2.1); ALBUMIN 4.3 g/dL (3.5-5.0); ALT/SGPT 204 U/L (21-72); AST/SGOT 60 U/L (17-59); BLOOD UREA NITROGEN 14 mg/dl (9-20); CALCIUM 8.4 mg/dL (8.4-10.2); GFR AFRICAN-AMERICAN > 60; GFR NON-AFRICAN AMERICAN > 60
[2017-01-06 15:11] LABS: SALICYLATE < 1.0 mg/dl
[2017-01-06 15:12] LABS: ACETAMINOPHEN < 10.0 ug/ml (10.0-30.0)
--- NOTE | 2017-01-07 14:17 | CARD ---
APPROVED REPORT EKG Measurement Heart [id number] [id number] <Conclusion> Poor data quality, interpretation may be adversely affected Normal sinus rhythm Incomplete right bundle branch block Left anterior fascicular block Abnormal ECG
== END 2017-01-06 18:15 | disposition home or self-care (01) ==
LOC: H.ER 14:17
DX: F10.129 Alcohol abuse with intoxication, unspecified (principal); E78.00 Pure hypercholesterolemia, unspecified; F20.9 Schizophrenia, unspecified; F31.9 Bipolar disorder, unspecified; I10 Essential (primary) hypertension

== ENCOUNTER 2017-01-07 23:06 | Emergency (ER) | payer OTHER ==
[2017-01-07 23:07] VITALS: BMI 30.9
[2017-01-07 23:21] VITALS: TEMP 98.8; O2SAT 96
--- NOTE | 2017-01-08 00:04 | ED PDOC ---
HPI: Psych/Substance Abuse Time Seen by Provider: 01/07/17 23:29 Chief Complaint (Nursing): Alcohol Ingestion Chief Complaint (Provider): Alcohol ingestion History Per: Patient History/Exam Limitations: no limitations Onset/Duration Of Symptoms: Mins Current Symptoms Are (Timing): Still Present Modifying Factor(s): Alcohol Additional Complaint(s): The patient is a 56yo male, past medical history of COPD, is brought to the ED by EMS for evaluation s/p discovering the patient publicly intoxicated. Patient admits to using "dope" and currently denies any medical complaints. A full HPI is unavailable due to patient's intoxicated state. Past Medical History Reviewed: Historical Data, Nursing Documentation, Vital Signs Vital Signs: Last Vital Signs Temp 98.8 F 01/07/17 23:18 Pulse 80 01/07/17 23:18 Resp 16 01/07/17 23:18 BP 112/66 01/07/17 23:18 Pulse Ox 96 01/07/17 23:18 - Medical History PMH: Anemia, Anxiety, Asthma, Back Problems, Bipolar Disorder, COPD, Depression , Gastritis (secondary to ETOH), GERD, HTN, Hypercholesterolemia, Pancreatitis ( secondary to ETOH), Schizophrenia, Seizures (secondary to ETOH withdrawal), Chronic Pain (low back pain ) Denies: Alzheimer's Disease, Atrial Fibrillation, Bronchitis, Cardia Arrhythmia, CHF, Dementia, Diabetes, Emphysema, Hepatitis, HIV, Migraine, Mitral Valve Prolapse, Multiple Sclerosis, Parkinson's Disease, Peripheral Edema , Pneumonia, Pulmonary Embolism, Chronic Kidney Disease, Sexually Transmitted Disease, Sleep Apnea - Surgical History Surgical History: Back Surgery (4 weeks ago) Denies: Pacemaker - Family History Family History: States: Diabetes - Immunization History Hx Tetanus Toxoid Vaccination: Yes (As per patient, TDaP uptodate ( about 3 years ago)) Hx Influenza Vaccination: No Hx Pneumococcal Vaccination: No - Home Medications Home Medications: Ambulatory Orders Medication Instructions Recorded Doxepin [Sinequan] 10 mg PO HS #30 cap 12/19/16 Folic Acid 1 mg PO DAILY #30 tab 12/19/16 Gabapentin [Neurontin] 400 mg PO HS #30 cap 12/19/16 QUEtiapine [SEROquel] 50 mg PO HS #30 tab 12/19/16 Sertraline [Zoloft] 100 mg PO DAILY #30 tab 12/19/16 Thiamine [Vitamin B1 Tab] 100 mg PO DAILY #30 tab 12/19/16 amLODIPine [Norvasc] 10 mg PO DAILY #30 tab 12/19/16 traMADol [Ultram] 50 mg PO Q8 PRN #15 tab 12/27/16 Albuterol HFA [Ventolin HFA 90 1 puff IH [id number] PRN 01/01/17 mcg/actuation (8 g)] Esomeprazole Magnesium [Nexium] 20 mg PO DAILY 01/01/17 M-Vit,Tx,Iron,Mins/Calc/Folic 1 tab PO DAILY 01/01/17 [Thera-M Caplet] Amylase/Lipase/Protease [Pancrease 5,000 unit PO DAILY #30 ecc 01/03/17 27918 U-5000 U-91463 U] - Allergies Allergies/Adverse Reactions: Allergies Allergy/AdvReac Type Severity Reaction Status Date / Time No Known Allergies Allergy Verified 11/28/16 16:47 Review of Systems Review Of Systems: ROS cannot be obtained secondary to pt's inabilty to answer questions. Physical Exam - Reviewed Nursing Documentation Reviewed: Yes Vital Signs Reviewed: Yes - Physical Exam Appears: Positive for: Well, Non-toxic, No Acute Distress Head Exam: Positive for: ATRAUMATIC, NORMAL INSPECTION, NORMOCEPHALIC Skin: Positive for: Normal Color, Warm, DRY Eye Exam: Positive for: EOMI, Normal appearance, PERRL Neck: Positive for: Normal Cardiovascular/Chest: Positive for: Regular Rate, Rhythm Respiratory: Positive for: Normal Breath Sounds. Negative for: Respiratory Distress Neurologic/Psych: Positive for: Alert, Oriented, Gait (unsteady gait), Other ( slurred speech) - ECG O2 Sat by Pulse Oximetry: 96 (RA) Pulse Ox Interpretation: Normal Medical Decision Making Medical Decision Making: Time: 2340 Impression: ETOH intoxication, substance abuse Plan: -- Alcohol serum -- Drug screen Reassess Time: 0145 Patient resting in room, no acute distress. Time: 0250 Patient in room, vitals stable, resting. Time: 0500 Patient sleeping in room, no acute distress. Time: 0700 Patient awake, alert and oriented x3. Patient with steady gait. Stable for discharge home. Scribe Attestation: Documented by Roxana Lipscomb acting as a scribe for José Manuel Kelly MD. Provider Attestation: All medical record entries made by the Scribe were at my direction and personally dictated by me. I have reviewed the chart and agree that the record accurately reflects my personal performance of the history, physical exam, medical decision making, and the department course for this patient. I have also personally directed, reviewed, and agree with the discharge instructions and disposition. Disposition - Clinical Impression Clinical Impression: Alcohol intoxication, Alcohol abuse - Patient ED Disposition Is Patient to be Admitted: No - Disposition Referrals: [facility] [Outside] Disposition: Routine/Home Disposition Time: 07:00 Condition: GOOD Instructions: Alcohol Intoxication (ED)
[2017-01-08 00:52] VITALS: BP 142/71; PULSE 98; RESP 20
[2017-01-08 03:50] LABS: BENZODIAZEPINES, UR POSITIVE (NEGATIVE)
[2017-01-08 03:51] LABS: OPIATES, UR NEGATIVE (NEGATIVE); PHENCYCLIDINE, UR NEGATIVE (NEGATIVE)
[2017-01-08 04:13] LABS: BARBITURATES, UR NEGATIVE (NEGATIVE)
== END 2017-01-08 06:50 | disposition home or self-care (01) ==
LOC: H.ER 23:06
DX: F10.129 Alcohol abuse with intoxication, unspecified (principal); E78.00 Pure hypercholesterolemia, unspecified; F20.9 Schizophrenia, unspecified; F31.9 Bipolar disorder, unspecified; F41.9 Anxiety disorder, unspecified; I10 Essential (primary) hypertension; J44.9 Chronic obstructive pulmonary disease, unspecified; K21.9 Gastro-esophageal reflux disease without esophagitis; K85.90 Acute pancreatitis without necrosis or infection, unspecified; Z87.19 Personal history of other diseases of the digestive system

== ENCOUNTER 2017-01-12 23:46 | Observation (INO) | payer OTHER ==
[2017-01-12 23:46] VITALS: BMI 30.9
[2017-01-12 23:56] VITALS: BP 125/77; PULSE 88; RESP 18; TEMP 98.9; O2SAT 98
--- NOTE | 2017-01-13 00:56 | ED PDOC ---
HPI: Psych/Substance Abuse Time Seen by Provider: 01/12/17 23:54 Chief Complaint (Nursing): Trauma Chief Complaint (Provider): Intoxication ED Caveat: Intoxicated History Per: EMS History/Exam Limitations: intoxication Suicide/Self Injury Attempted (Context): None Modifying Factor(s): Alcohol Additional History Per: Patient Additional Complaint(s): 56 year old male brought in by EMS presents to ED due to alcohol intoxication and has a past medical history of alcohol abuse. EMS states that patient was found in a hallway and claimed to have fallen. Patient complains of rib pain and is unsure if he sustained a head injury. PCP: VER[facility]NICA Past Medical History Reviewed: Historical Data, Nursing Documentation, Vital Signs Vital Signs: Last Vital Signs Temp 98.9 F 01/12/17 23:54 Pulse 88 01/12/17 23:54 Resp 18 01/12/17 23:54 BP 125/77 01/12/17 23:54 Pulse Ox 98 01/12/17 23:54 - Medical History PMH: Anemia, Anxiety, Asthma, Back Problems, Bipolar Disorder, COPD, Depression , Gastritis (secondary to ETOH), GERD, HTN, Hypercholesterolemia, Pancreatitis ( secondary to ETOH), Schizophrenia, Seizures (secondary to ETOH withdrawal), Chronic Pain (low back pain ) Denies: Alzheimer's Disease, Atrial Fibrillation, Bronchitis, Cardia Arrhythmia, CHF, Dementia, Diabetes, Emphysema, Hepatitis, HIV, Migraine, Mitral Valve Prolapse, Multiple Sclerosis, Parkinson's Disease, Peripheral Edema , Pneumonia, Pulmonary Embolism, Chronic Kidney Disease, Sexually Transmitted Disease, Sleep Apnea - Surgical History Surgical History: Back Surgery (4 weeks ago) Denies: Pacemaker - Family History Family History: States: Diabetes - Social History Alcohol: > 2 Drinks/Day - Immunization History Hx Tetanus Toxoid Vaccination: Yes (As per patient, TDaP uptodate ( about 3 years ago)) Hx Influenza Vaccination: No Hx Pneumococcal Vaccination: No - Home Medications Home Medications: Ambulatory Orders Medication Instructions Recorded Doxepin [Sinequan] 10 mg PO HS #30 cap 12/19/16 Folic Acid 1 mg PO DAILY #30 tab 12/19/16 Gabapentin [Neurontin] 400 mg PO HS #30 cap 12/19/16 QUEtiapine [SEROquel] 50 mg PO HS #30 tab 12/19/16 Sertraline [Zoloft] 100 mg PO DAILY #30 tab 12/19/16 Thiamine [Vitamin B1 Tab] 100 mg PO DAILY #30 tab 12/19/16 amLODIPine [Norvasc] 10 mg PO DAILY #30 tab 12/19/16 traMADol [Ultram] 50 mg PO Q8 PRN #15 tab 12/27/16 Albuterol HFA [Ventolin HFA 90 1 puff IH [id number] PRN 01/01/17 mcg/actuation (8 g)] Esomeprazole Magnesium [Nexium] 20 mg PO DAILY 01/01/17 M-Vit,Tx,Iron,Mins/Calc/Folic 1 tab PO DAILY 01/01/17 [Thera-M Caplet] Amylase/Lipase/Protease [Pancrease 5,000 unit PO DAILY #30 ecc 01/03/17 69639 U-5000 U-97089 U] - Allergies Allergies/Adverse Reactions: Allergies Allergy/AdvReac Type Severity Reaction Status Date / Time No Known Allergies Allergy Verified 11/28/16 16:47 Review of Systems ROS Statement: Except As Marked, All Systems Reviewed And Found Negative Review Of Systems: ROS cannot be obtained secondary to pt's inabilty to answer questions. (Limited due to patient's intoxicated state) Cardiovascular: Positive for: Other (Rib pain) Physical Exam - Reviewed Nursing Documentation Reviewed: Yes Vital Signs Reviewed: Yes - Physical Exam Appears: Positive for: Non-toxic, No Acute Distress (Appears intoxicated) Head Exam: Positive for: ATRAUMATIC, NORMOCEPHALIC Skin: Positive for: Normal Color, Warm, Dry Eye Exam: Positive for: Normal appearance, EOMI, PERRL ENT: Positive for: Normal ENT Inspection Neck: Positive for: Normal, Painless ROM, Supple Cardiovascular/Chest: Positive for: Regular Rate, Rhythm. Negative for: Murmur , Other ((-) bruising to rib cage wall) Respiratory: Positive for: Normal Breath Sounds. Negative for: Respiratory Distress Gastrointestinal/Abdominal: Positive for: Soft, Other (Old bruising and ecchymosis to abdomen.). Negative for: Tenderness Extremity: Positive for: Normal ROM. Negative for: Deformity Neurologic/Psych: Positive for: Gait (unsteady). Negative for: Oriented, Motor/ Sensory Deficits - ECG O2 Sat by Pulse Oximetry: 98 (RA) Pulse Ox Interpretation: Normal Medical Decision Making Medical Decision Makin Initial impression: EtOH intoxication and fall Initial plan: * CT HEAD * EtOH serum * CXR * Accucheck * ED OBS ADMISSION All further documentation takes place in ED OBS section of the chart. Scribe Attestation: Documented by Sharona Peres acting as a scribe for Anthony Cuenca MD. Scribe Attestation: All medical record entries made by the Scribe were at my direction and personally dictated by me. I have reviewed the chart and agree that the record accurately reflects my personal performance of the history, physical exam, medical decision making, and the department course for this patient. I have also personally directed, reviewed, and agree with the discharge instructions and disposition. ED OBSERVATION Discharge: Yes Date of observation admission: 01/13/17 Time of observation admission: 00:03 - Observation admission statement Patient is being placed in observation because:: Pending CT and is intoxicated - Goals of Observation Goals of observation are:: CT results and clinical sobriety - Progress Note Progress Note: 01/13/17 01:25 CT FINDINGS There is atrophy. There is chronic small vessel ischemic disease. Tiny old lacunar infarct right thalamus. There is no hemorrhage or edema. There is partial opacification of the ethmoid sinuses. Again seen is minimal mucosal thickening of the maxillary and sphenoid sinuses. Again seen is a mucosal retention cyst right maxillary sinus. The osseous structures are normal. IMPRESSION: No acute findings. Patient resting comfortably in room. Vitals stable. 01/13/17 02:24 Patient resting comfortably in room. Vitals stable. 01/13/17 03:52 Patient resting comfortably. Vitals are stable. 01/13/17 05:20 Patient resting comfortably. Vitals are stable. 01/13/17 06:00 Patient is awake, alert, oriented, and walking with a steady gait. Patient is stable for discharge home. Disposition - Clinical Impression Clinical Impression: Alcohol intoxication - Disposition Disposition: Routine/Home Disposition Time: 00:03 Condition: STABLE - Pt Status Changed To: Hospital Disposition Of: Observation
--- NOTE | 2017-01-13 01:24 | CT ---
EXAM: CT Head Without Intravenous Contrast CLINICAL HISTORY: 56 years old, male; Injury or trauma; Fall; Additional info: Intox, fall TECHNIQUE: Axial computed tomography images of the head/brain without intravenous contrast. All CT scans at this facility use one or more dose reduction techniques, viz.: automated exposure control; ma/kV adjustment per patient size (including targeted exams where dose is matched to indication; i.e. head); or iterative reconstruction technique. Coronal and sagittal reformatted images were created and reviewed. EXAM DATE/TIME: 01/13/2017 12:03 AM COMPARISON: CT - HEAD W/O CONTRAST 03/10/2015 2:54:20 PM FINDINGS: There is atrophy. There is chronic small vessel ischemic disease. Tiny old lacunar infarct right thalamus. There is no hemorrhage or edema. There is partial opacification of the ethmoid sinuses. Again seen is minimal mucosal thickening of the maxillary and sphenoid sinuses. Again seen is a mucosal retention cyst right maxillary sinus. The osseous structures are normal. IMPRESSION: No acute findings.
--- NOTE | 2017-01-13 10:56 | RAD ---
HISTORY: s/p fall COMPARISON: 08/19/2016 FINDINGS: LUNGS: No active pulmonary disease. PLEURA: No significant pleural effusion identified, no pneumothorax apparent. CARDIOVASCULAR: No radiographic findings to suggest acute or significant cardiovascular disease. OSSEOUS STRUCTURES: No significant abnormalities. VISUALIZED UPPER ABDOMEN: Normal. OTHER FINDINGS: None. IMPRESSION: No active disease. No significant interval change compared to the prior examination(s). Concordant results with the preliminary interpretation rendered by the emergency department physician procedure.
== END 2017-01-13 05:29 | disposition home or self-care (01) ==
LOC: H.ER 23:46 → H.EROBSV 01-13 00:04
PROVIDERS: ADMIT Emergency Medicine; ATTEND Emergency Medicine
DX: F10.129 Alcohol abuse with intoxication, unspecified (principal)

== ENCOUNTER 2017-02-12 18:45 | Observation (INO) | payer OTHER ==
[2017-02-12 18:46] VITALS: BMI 30.9
[2017-02-12] MEDS ORDERED: Sodium Chloride 0.9% 1,000 ML IV STA (19:11)
--- NOTE | 2017-02-12 19:22 | ED PDOC ---
HPI: Psych/Substance Abuse Time Seen by Provider: 02/12/17 18:59 Chief Complaint (Nursing): Chest Pain Chief Complaint (Provider): Alcohol Intoxication and Chest Pain History Per: Patient History/Exam Limitations: no limitations Onset/Duration Of Symptoms: Hrs Current Symptoms Are (Timing): Still Present Modifying Factor(s): Alcohol Additional Complaint(s): Ryley Torres, a 57 year old male, is brought into the ED for alcohol intoxication and is also complaining of chest pain. Patient is well known to the ED and is a chronic alcoholic. The patient reports that he had 3 pints of beer and then immediately started to develop a burning chest pain. Patient states that the pain is non radiating but he does occasionally have left arm pain as well. Past Medical History Reviewed: Historical Data, Nursing Documentation, Vital Signs Vital Signs: Last Vital Signs Temp 97.4 F L 02/12/17 18:47 Pulse 111 H 02/12/17 18:47 Resp 18 02/12/17 18:47 BP 124/89 02/12/17 18:47 Pulse Ox 96 02/12/17 18:47 - Medical History PMH: Anemia, Anxiety, Asthma, Back Problems, Bipolar Disorder, COPD, Depression , Gastritis (secondary to ETOH), GERD, HTN, Hypercholesterolemia, Pancreatitis ( secondary to ETOH), Schizophrenia, Seizures (secondary to ETOH withdrawal), Chronic Pain (low back pain ) Denies: Alzheimer's Disease, Atrial Fibrillation, Bronchitis, Cardia Arrhythmia, CHF, Dementia, Diabetes, Emphysema, Hepatitis, HIV, Migraine, Mitral Valve Prolapse, Multiple Sclerosis, Parkinson's Disease, Peripheral Edema , Pneumonia, Pulmonary Embolism, Chronic Kidney Disease, Sexually Transmitted Disease, Sleep Apnea - Surgical History Surgical History: Back Surgery (4 weeks ago) Denies: Pacemaker - Family History Family History: States: Diabetes - Social History Alcohol: > 2 Drinks/Day - Immunization History Hx Tetanus Toxoid Vaccination: Yes (As per patient, TDaP uptodate ( about 3 years ago)) Hx Influenza Vaccination: No Hx Pneumococcal Vaccination: No - Home Medications Home Medications: Ambulatory Orders Medication Instructions Recorded Doxepin [Sinequan] 10 mg PO HS #30 cap 12/19/16 Folic Acid 1 mg PO DAILY #30 tab 12/19/16 Gabapentin [Neurontin] 400 mg PO HS #30 cap 12/19/16 QUEtiapine [SEROquel] 50 mg PO HS #30 tab 12/19/16 Sertraline [Zoloft] 100 mg PO DAILY #30 tab 12/19/16 Thiamine [Vitamin B1 Tab] 100 mg PO DAILY #30 tab 12/19/16 amLODIPine [Norvasc] 10 mg PO DAILY #30 tab 12/19/16 traMADol [Ultram] 50 mg PO Q8 PRN #15 tab 12/27/16 Albuterol HFA [Ventolin HFA 90 1 puff IH [id number] PRN 01/01/17 mcg/actuation (8 g)] Esomeprazole Magnesium [Nexium] 20 mg PO DAILY 01/01/17 M-Vit,Tx,Iron,Mins/Calc/Folic 1 tab PO DAILY 01/01/17 [Thera-M Caplet] Amylase/Lipase/Protease [Pancrease 5,000 unit PO DAILY #30 ecc 01/03/17 61865 U-5000 [id number] U] - Allergies Allergies/Adverse Reactions: Allergies Allergy/AdvReac Type Severity Reaction Status Date / Time No Known Allergies Allergy Verified 11/28/16 16:47 Review of Systems ROS Statement: Except As Marked, All Systems Reviewed And Found Negative Constitutional: Positive for: Other (Alcohol Intoxication) Cardiovascular: Positive for: Chest Pain Physical Exam - Reviewed Nursing Documentation Reviewed: Yes Vital Signs Reviewed: Yes - Physical Exam Appears: Positive for: Non-toxic, No Acute Distress Head Exam: Positive for: ATRAUMATIC, NORMAL INSPECTION, NORMOCEPHALIC Skin: Positive for: Normal Color, Warm, Dry Eye Exam: Positive for: Normal appearance, EOMI, PERRL. Negative for: Nystagmus ENT: Positive for: Normal ENT Inspection. Negative for: Nasal Congestion, Tonsillar Exudate Neck: Positive for: Normal, Painless ROM, Supple Cardiovascular/Chest: Positive for: Regular Rate, Rhythm, Chest Non Tender. Negative for: Tachycardia Respiratory: Positive for: Normal Breath Sounds. Negative for: Rales, Rhonchi, Wheezing, Respiratory Distress Gastrointestinal/Abdominal: Positive for: Normal Exam, Bowel Sounds, Soft. Negative for: Tenderness, Mass, Guarding, Rebound Back: Positive for: Normal Inspection. Negative for: L CVA Tenderness, R CVA Tenderness Extremity: Positive for: Normal ROM. Negative for: Tenderness, Calf Tenderness , Deformity, Swelling Neurologic/Psych: Positive for: Alert, Oriented, Gait - Laboratory Results Result Diagrams: 02/12/17 19:43 02/12/17 19:43 - ECG O2 Sat by Pulse Oximetry: 96 (RA) Pulse Ox Interpretation: Normal Medical Decision Making Medical Decision Makin Initial Impression: Alcohol Induced Gastritis and Alcohol Intoxication Initial Plan: * EKG * BMP * CPK * Troponin * CBC * NS 1000mls IV 1000mls/hr * CXR * ED OBS 190 * Reevalutaion Scribe Attestation Documented by Cleopatra Lorenz acting as a scribe forMD. Provider Attestation All medical record entries made by the Scribe were at my direction and personally dictated by me. I have reviewed the chart and agree that the record accurately reflects my personal performance of the history, physical exam, medical decision making, and the department course for this patient. I have also personally directed, reviewed, and agree with the discharge instructions and disposition. ED OBSERVATION Discharge: Yes Date of observation admission: 02/12/17 Time of observation admission: 19:08 - Observation admission statement Patient is being placed in observation because:: Alcohol intoxication - Goals of Observation Goals of observation are:: Clinical sobriety - Progress Note Progress Note: 02/12/17 20:30 Patient is resting comfortably. 02/12/17 21:55 Patient is resting comfortably. 02/12/17 23:33 Patient is resting comfortably. Vitals stable. 02/13/17 01:00 Patient complaining of abdominal pain. GI cocktail given. 02/13/17 02:01 Patient notes abdominal pain has resolved. Patient resting comfortably. Vitals stable. 02/13/17 03:03 Patient is resting comfortably. Drawing second Troponin. 02/13/17 04:13 Patient resting comfortably. 2nd Troponon: negative. 02/13/17 05:28 Patient is resting comfortably. Vitals stable. 02/13/17 06:01 Patient is awake, alert, and oriented x3. Patient is medically stable for discharge. Disposition - Clinical Impression Clinical Impression: Alcohol intoxication, Alcoholic gastritis - Patient ED Disposition Is Patient to be Admitted: No - Disposition Disposition: Routine/Home Disposition Time: 19:08 Condition: IMPROVED - Pt Status Changed To: Hospital Disposition Of: Observation (ED OBS)
[2017-02-12 19:49] LABS: BASO # 0.1 K/uL (0.0-0.2); BASO % 1.4 % (0.0-2.0); EOS # 0.1 K/uL (0.0-0.7); EOS % 1.5 % (0.0-4.0); LYMPH # 4.5 K/uL (1.0-4.3); LYMPH % 46.1 % (20.0-40.0); MEAN CELL VOLUME 96.4 fl (80.0-94.0); MEAN CORPUSCULAR HEMOGLOBIN 33.3 pg (27.0-31.0); MEAN CORPUSCULAR HGB CONC 34.5 g/dL (33.0-37.0); MEAN PLATELET VOLUME 7.2 fl (7.2-11.7); MONO # 0.5 K/uL (0.0-0.8); NEUT # 4.5 K/uL (1.8-7.0); RED CELL DISTRIBUTION WIDTH 16.5 % (11.5-14.5); WHITE BLOOD COUNT 9.8 K/uL (4.8-10.8)
[2017-02-12 20:00] LABS: BLOOD UREA NITROGEN 14 mg/dl (9-20); CALCIUM 9.3 mg/dL (8.4-10.2); CARBON DIOXIDE 24 mmol/L (22-30); CHLORIDE 101 mmol/L (98-107); GFR AFRICAN-AMERICAN > 60; GLUCOSE,RANDOM 117 mg/dL (75-110); POTASSIUM 4.3 MMOL/L (3.6-5.0); SODIUM 141 mmol/l (132-148)
[2017-02-13] MEDS ORDERED: Alum-Mag Hydrox-Simethicone Susp (30 mL) PO STA (01:10)
[2017-02-13 03:53] VITALS: BP 141/84; PULSE 91; RESP 15; TEMP 98.4
[2017-02-13 04:14] VITALS: O2SAT 96
--- NOTE | 2017-02-13 07:51 | CARD ---
APPROVED REPORT EKG Measurement Heart [id number] DC [id number] <Conclusion> Normal sinus rhythm Left anterior fascicular block Abnormal ECG
--- NOTE | 2017-02-13 08:29 | RAD ---
PROCEDURE: CHEST RADIOGRAPH, 1 VIEW HISTORY: cp, etoh COMPARISON: 01/13/2017. FINDINGS: LUNGS: Clear. PLEURA: No pneumothorax or pleural fluid seen. CARDIOVASCULAR: No radiographic findings to suggest acute or significant cardiovascular disease. OSSEOUS STRUCTURES: No significant abnormalities. VISUALIZED UPPER ABDOMEN: Normal. OTHER FINDINGS: None. IMPRESSION: No active disease. No acute/significant interval changes.
== END 2017-02-13 07:22 | disposition home or self-care (01) ==
LOC: H.ER 18:45 → H.ERHOLD 19:08 → H.EROBSV 19:37
PROVIDERS: ADMIT Emergency Medicine; ATTEND Emergency Medicine
DX: F10.129 Alcohol abuse with intoxication, unspecified (principal); K29.20 Alcoholic gastritis without bleeding; Y90.8 Blood alcohol level of 240 mg/100 ml or more; R07.9 Chest pain, unspecified; K21.9 Gastro-esophageal reflux disease without esophagitis; E11.9 Type 2 diabetes mellitus without complications; I10 Essential (primary) hypertension; J44.9 Chronic obstructive pulmonary disease, unspecified; E78.00 Pure hypercholesterolemia, unspecified; D64.9 Anemia, unspecified; F20.9 Schizophrenia, unspecified; F31.9 Bipolar disorder, unspecified; G89.29 Other chronic pain
CPT/HCPCS: 36415; 71010; 80048; 80320; 82550; 82948; 84484; 85025; 93005; 96374; 99283; G0378; J7040

== ENCOUNTER 2017-03-22 16:47 | Inpatient (IN) | payer MEDICAID, MEDICARE, OTHER ==
[2017-03-22 16:48] VITALS: BMI 30.9
[2017-03-22 16:50] VITALS: O2SAT 97
--- NOTE | 2017-03-22 17:12 | ED PDOC ---
HPI: Psych/Substance Abuse Time Seen by Provider: 03/22/17 16:50 Chief Complaint (Nursing): Psychiatric Evaluation Chief Complaint (Provider): depression History Per: Patient History/Exam Limitations: no limitations Onset/Duration Of Symptoms: Days (x1) Current Symptoms Are (Timing): Still Present Additional Complaint(s): Ryley Torres is a 57 year old male with previous medical history of depression , bipolar disorder and schizophrenia, who presents to the emergency department with a complaint of depression associated with anxiety, malaise, homicidal ideation, auditory hallucinations and cough with sputum ongoing for 1 day status post eviction from house despite paying rent on time. He denied suicidal ideation, chest pain or being compliant with psychiatric medication. Patient admits to drinking a pint of alcohol today. PMD: none provided Past Medical History Reviewed: Historical Data, Nursing Documentation, Vital Signs Vital Signs: Last Vital Signs Temp 98.4 F 03/22/17 16:48 Pulse 112 H 03/22/17 16:48 Resp 16 03/22/17 16:48 BP 130/78 03/22/17 16:48 Pulse Ox 97 03/22/17 16:48 - Medical History PMH: Anemia, Anxiety, Asthma, Back Problems, Bipolar Disorder, COPD, Depression , Gastritis (secondary to ETOH), GERD, HTN, Hypercholesterolemia, Pancreatitis ( secondary to ETOH), Schizophrenia, Seizures (secondary to ETOH withdrawal), Chronic Pain (low back pain ) Denies: Alzheimer's Disease, Atrial Fibrillation, Bronchitis, Cardia Arrhythmia, CHF, Dementia, Diabetes, Emphysema, Hepatitis, HIV, Migraine, Mitral Valve Prolapse, Multiple Sclerosis, Parkinson's Disease, Peripheral Edema , Pneumonia, Pulmonary Embolism, Chronic Kidney Disease, Sexually Transmitted Disease, Sleep Apnea - Surgical History Surgical History: Back Surgery (4 weeks ago) Denies: Pacemaker - Family History Family History: States: Diabetes - Social History Current smoker - smoking cessation education provided: Yes Drugs: Denies - Immunization History Hx Tetanus Toxoid Vaccination: Yes (As per patient, TDaP uptodate ( about 3 years ago)) Hx Influenza Vaccination: No Hx Pneumococcal Vaccination: No - Home Medications Home Medications: Ambulatory Orders Medication Instructions Recorded Doxepin [Sinequan] 10 mg PO HS #30 cap 12/19/16 Folic Acid 1 mg PO DAILY #30 tab 12/19/16 Gabapentin [Neurontin] 400 mg PO HS #30 cap 12/19/16 QUEtiapine [SEROquel] 50 mg PO HS #30 tab 12/19/16 Sertraline [Zoloft] 100 mg PO DAILY #30 tab 12/19/16 Thiamine [Vitamin B1 Tab] 100 mg PO DAILY #30 tab 12/19/16 amLODIPine [Norvasc] 10 mg PO DAILY #30 tab 12/19/16 traMADol [Ultram] 50 mg PO Q8 PRN #15 tab 12/27/16 Albuterol HFA [Ventolin HFA 90 1 puff IH [id number] PRN 01/01/17 mcg/actuation (8 g)] Esomeprazole Magnesium [Nexium] 20 mg PO DAILY 01/01/17 M-Vit,Tx,Iron,Mins/Calc/Folic 1 tab PO DAILY 01/01/17 [Thera-M Caplet] Amylase/Lipase/Protease [Pancrease 5,000 unit PO DAILY #30 ecc 01/03/17 41379 U-5000 U-00017 U] - Allergies Allergies/Adverse Reactions: Allergies Allergy/AdvReac Type Severity Reaction Status Date / Time No Known Allergies Allergy Verified 03/22/17 16:48 Review of Systems ROS Statement: Except As Marked, All Systems Reviewed And Found Negative (and as per HPI) Constitutional: Positive for: Malaise, Other (intoxicated) Cardiovascular: Negative for: Chest Pain Respiratory: Positive for: Cough, Sputum Psych: Positive for: Anxiety, Depression, Psychosis (auditory hallucinations), Other (homicidal ideation). Negative for: Suicidal ideation Physical Exam - Reviewed Nursing Documentation Reviewed: Yes Vital Signs Reviewed: Yes - Physical Exam Appears: Positive for: In Acute Distress (psychiatric distress, crying) Head Exam: Positive for: ATRAUMATIC, NORMOCEPHALIC Skin: Positive for: Warm, Dry Eye Exam: Positive for: EOMI, PERRL ENT: Positive for: Pharynx Is (clear) Neck: Positive for: Painless ROM, Supple Cardiovascular/Chest: Positive for: Regular Rate, Rhythm, Chest Non Tender. Negative for: Murmur Respiratory: Positive for: Normal Breath Sounds, Rhonchi. Negative for: Accessory Muscle Use, Wheezing, Respiratory Distress Gastrointestinal/Abdominal: Positive for: Soft. Negative for: Tenderness Back: Positive for: Normal Inspection. Negative for: Decreased ROM Extremity: Positive for: Normal ROM. Negative for: Deformity Lymphatic: Negative for: Adenopathy Neurologic/Psych: Positive for: Alert. Negative for: Motor/Sensory Deficits - Laboratory Results Result Diagrams: 03/22/17 17:50 03/22/17 17:50 - ECG O2 Sat by Pulse Oximetry: 97 (RA) Pulse Ox Interpretation: Normal - Radiology X-Ray: Read By Radiologist X-Ray Interpretation: No Acute Disease Medical Decision Making Medical Decision Making: Initial Impression: Depression; ETOH intoxication Initial Plan: * Acetaminophen * Alcohol serum * CMP * Drug screen, urine * Magnesium * Phosphorous * Salicylate * Urine dipstick * CBC * CXR * Accucheck Time: 1729 --CXR FINDINGS: LINES AND TUBES: None. LUNG AND PLEURA: The lungs are well inflated and clear. HEART AND MEDIASTINUM: The heart is not enlarged. The hilar and mediastinal contours are within normal limits. SKELETAL STRUCTURES: The bony structures are within normal limits for the patient's age. VISUALIZED UPPER ABDOMEN: Normal. OTHER FINDINGS: None. IMPRESSION: No active pulmonary disease. 915p Evaluated by orchid worker and pt to be admitted to psychiatric floor Pt medically stable for psychiatric admission. Scribe Attestation: Documented by Lynette Perez, acting as a scribe for Jeannine Souza MD. Provider Scribe Attestation: All medical record entries made by the Scribe were at my direction and personally dictated by me. I have reviewed the chart and agree that the record accurately reflects my personal performance of the history, physical exam, medical decision making, and the department course for this patient. I have also personally directed, reviewed, and agree with the discharge instructions and disposition. Disposition - Clinical Impression Clinical Impression: Depression, Alcohol abuse - Disposition Disposition Time: 21:00 Condition: STABLE Forms: [employer] (Salvadorean) - Pt Status Changed To: Hospital Disposition Of: Inpatient - Admit Certification Admit to Inpatient:: After my assessment, the patient will require hospitalization for at least two midnights. This is because of the severity of symptoms shown, intensity of services needed, and/or the medical risk in this patient being treated as an outpatient. - POA Present On Arrival: None
--- NOTE | 2017-03-22 17:31 | RAD ---
HISTORY: COMPARISON: 02/12/2017. TECHNIQUE: Chest PA and lateral FINDINGS: LINES AND TUBES: None. LUNG AND PLEURA: The lungs are well inflated and clear. HEART AND MEDIASTINUM: The heart is not enlarged. The hilar and mediastinal contours are within normal limits. SKELETAL STRUCTURES: The bony structures are within normal limits for the patient's age. VISUALIZED UPPER ABDOMEN: Normal. OTHER FINDINGS: None. IMPRESSION: No active pulmonary disease.
[2017-03-22 17:57] LABS: BASO # 0.1 K/uL (0.0-0.2); BASO % 1.2 % (0.0-2.0); EOS # 0.1 K/uL (0.0-0.7); HEMATOCRIT 44.3 % (35.0-51.0); LYMPH # 3.7 K/uL (1.0-4.3); LYMPH % 49.3 % (20.0-40.0); MEAN CELL VOLUME 96.4 fl (80.0-94.0); MEAN CORPUSCULAR HEMOGLOBIN 32.6 pg (27.0-31.0); MEAN CORPUSCULAR HGB CONC 33.8 g/dL (33.0-37.0); MEAN PLATELET VOLUME 7.6 fl (7.2-11.7); MONO # 0.4 K/uL (0.0-0.8); MONO % 5.9 % (0.0-10.0); NEUT # 3.2 K/uL (1.8-7.0); NEUT % 42.6 % (50.0-75.0); NRBC % 0.1 % (0.0-0.0); RED CELL DISTRIBUTION WIDTH 14.3 % (11.5-14.5); WHITE BLOOD COUNT 7.5 K/uL (4.8-10.8)
[2017-03-22 18:08] LABS: ALB/GLOB RATIO 1.5 (1.0-2.1); ALCOHOL SERUM 235 mg/dl (0-10); ALKALINE PHOSPHATASE 205 U/L (38-126); ALT/SGPT 134 U/L (21-72); AST/SGOT 217 U/L (17-59); BILIRUBIN,TOTAL 0.8 mg/dl (0.2-1.3); BLOOD UREA NITROGEN 6 mg/dl (9-20); CALCIUM 9.8 mg/dL (8.4-10.2); CARBON DIOXIDE 22 mmol/L (22-30); CHLORIDE 101 mmol/L (98-107); GFR AFRICAN-AMERICAN > 60; GLUCOSE,RANDOM 135 mg/dL (75-110); MAGNESIUM 1.5 MG/DL (1.6-2.3); PHOSPHOROUS 2.6 mg/dl (2.5-4.5); POTASSIUM 3.3 MMOL/L (3.6-5.0); SODIUM 141 mmol/l (132-148); TOTAL PROTEIN 8.4 G/DL (6.3-8.2)
[2017-03-22] MEDS ORDERED: K-Lyte 25meq EF Tab PO ONE ×2 (18:12→18:15)
[2017-03-22] MEDS ORDERED: Magnesium Hydroxide Susp 30 ml UD PO PRN (22:25)
[2017-03-22] MEDS ORDERED: DiphenhydrAMINE 50 mg/ml Inj IM PRN (22:25)
[2017-03-22] MEDS ORDERED: Alum-Mag Hydrox-Simethicone Susp (30 mL) PO PRN (22:25)
--- NOTE | 2017-03-22 23:11 | PCM.BM ---
<Usha Freeman P - Last Filed: 03/22/17 23:10> Treatment Plan Problems - Problems identified on initial assessmt Medication nonadherence Date Initiated: 03/22/17 Time Initiated: 23:10 Assessment reference: NA Status: Active Treatment assets and liabiliti Patient Assests: cooperative, ADL independent, negotiates basic needs, cognitively intact Patient Liabilities: live alone, financial problems, poor support system, relationship conflicts - Milieu Protocol Maintain good personal hygiene: daily Encourage regular showers, daily Remind patient to perform daily oral care Maintain personal safety: every shift Educate patient to report safety concerns to staff, every shift Monitor environment for contraband/sharps Medication safety: Monitor for expected outcome, potential side effects: every shift, Assess barriers to learning: every shift, Assess readiness for medication education: every shift <Faviola Ash - Last Filed: 03/30/17 11:24> Treatment assets and liabiliti Patient Assests: adapts well, cooperative, self-reliant, ADL independent, negotiates basic needs, cognitively intact Patient Liabilities: live alone (recent eviction), financial problems, poor support system, relationship conflicts, substance abuse, unable to read/write Family Contact Family involvement: Famliy/SO not involved Family contact: Patient declines to allow family contact at present - Goals for Treatment Patient goals for treatment: Patient to continue stabilization on 3NP through medication management and group/supportive therapy. Patient to be encouraged to attend groups regularly to promote compliance, self-awareness, sobriety, and improve insight, coping skills and self-esteem. Patient to be provided with referral for appropriate level of aftercare to reduce risk of future hospitalizations and ensure safety in the community. Discharge/Continuing Care - Education Needs Education Needs: Patient Medication, Patient Coping Skills, Patient Community resources, Patient Aftercare Safety Plan - Discharge Discharge Criteria: Tolerates medication w/o severe side effects, Free of Suicidal thoughts, Free of Homicidal thoughts, Normal sleep pattern, Ability to care for self, No longer exhibiting s/s of withdrawal, Reduction of target symptoms Discharge to:: Home - Treatment Team Participation Patient/Family/SO Statement: 03/30/17 11:25 Patient attended tx team on 03/29 and was able to actively participate in discussions regarding precursors to hospitalization, progress on 3NP and aftercare. patient continues to declined referrals to inpatient substance abuse tx despite staff recommendation. Risks of continued ETOH abuse and noncompliance with aftercare discussed extensively. Patient agreeable to [facility] and [facility]. Patient reports wanting to find housing upon discharge. Patient reported improvement in symptoms of depression and AH since admission. Patient denied SI/HI. Discussed with Family/SO: No Was Patient/Family/SO present at Treatment Team Meeting: Yes <Jean Pierre Delacruz - Last Filed: 03/30/17 11:41> - Diagnosis (1) Depression Status: Chronic Interventions: pharmacotherapy, psychotherapy 03/30/17 11:40
--- NOTE | 2017-03-23 07:28 | CARD ---
APPROVED REPORT EKG Measurement Heart [id number] ME [id number] <Conclusion> Normal sinus rhythm Left axis deviation Nonspecific T wave abnormality Abnormal ECG
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
[2017-03-23 08:47] LABS: BLOOD UREA NITROGEN 5 mg/dl (9-20); CALCIUM 8.9 mg/dL (8.4-10.2); CARBON DIOXIDE 27 mmol/L (22-30); CHLORIDE 95 mmol/L (98-107); CHOLESTEROL 242 mg/dL (0-199); GFR AFRICAN-AMERICAN > 60; GLUCOSE,RANDOM 133 mg/dL (75-110); POTASSIUM 3.1 MMOL/L (3.6-5.0); SODIUM 135 mmol/l (132-148)
[2017-03-23] MEDS: Multivitamin With Minerals Tab PO SCH (08:50)
[2017-03-23 09:09] LABS: T4 6.07 ug/dl (5.5-11.0)
[2017-03-23 09:23] LABS: THYROID STIMULATING HORMONE 1.12 mIU/ML (0.46-4.68)
[2017-03-23] MEDS ORDERED: Albuterol HFA 90 mcg/actuation (8 g) IH PRN (12:07)
[2017-03-23] MEDS ORDERED: Multivitamin With Minerals Tab PO SCH (12:15)
[2017-03-23] MEDS: Pantoprazole 40 mg EC Tab PO SCH (14:03)
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
[2017-03-23] MEDS ORDERED: Potassium Chloride 20 mEq ER Tab PO ONE (22:20)
[2017-03-24 07:30] LABS: BLOOD UREA NITROGEN 6 mg/dl (9-20); CALCIUM 9.7 mg/dL (8.4-10.2); CARBON DIOXIDE 31 mmol/L (22-30); CHLORIDE 100 mmol/L (98-107); GFR AFRICAN-AMERICAN > 60; GLUCOSE,RANDOM 142 mg/dL (75-110); POTASSIUM 4.2 MMOL/L (3.6-5.0); SODIUM 140 mmol/l (132-148)
[2017-03-24] MEDS: Pantoprazole 40 mg EC Tab PO SCH (08:47)
[2017-03-24] MEDS: Multivitamin With Minerals Tab PO SCH (13:05)
[2017-03-24] MEDS: Lidocaine 5% Patch TD SCH (14:00)
--- NOTE | 2017-03-24 14:49 | PCM.PYCHPN ---
Psychiatric Progress Note - Psychiatric Progress Note Patient seen today, length of contact: patient evaluated discussed with team chart reviewed Patient Chief Complaint: I had a hard time to sleep yesterday Problems Identified/Issues Discussed: patient continues to have depressed mood however denied any current suicidal thoughts, reported decreased sleep and appetite, denied any current perceptual disturbances denied any current homicidal ideations Medical Problems: back pain DSM 5 Symptoms Update: major depression recurrent Medication Change: Yes (increase seroquel to 100mg qhs) Medical Record Reviewed: Yes Consults ordered or reviewed: family practice consult Mental Status Examination - Cognitive Function Orientation: Person, Place Attention: WNL Concentration: WNL Association: WNL Fund of Knowledge: WNL - Mood Mood: Depressed, Anxious - Affect Affect: Constricted, Depressed - Speech Speech: Soft - Formal Thought Process Formal Thought Process: Circumstantial - Suicidal Ideation Suicidal Ideation: No - Homicidal Ideation Homicidal Ideation: No Goal/Treatment Plan - Goal/Treatment Plan Progress Toward Problem(s) and Goals/Treatment Plan: alcohol withdrawal protocol follow up on symptoms and signs of alcohol withdrawal' continue with zoloft and neurontin and increase seroquel to 100mg follow up on psychopharmacological effect and side effect profilei
[2017-03-25] MEDS: Pantoprazole 40 mg EC Tab PO SCH (09:02)
[2017-03-25] MEDS: Multivitamin With Minerals Tab PO SCH (09:02)
[2017-03-25] MEDS: Lidocaine 5% Patch TD SCH (09:23)
--- NOTE | 2017-03-25 10:36 | PCM.PYCHPN ---
Psychiatric Progress Note - Psychiatric Progress Note Patient seen today, length of contact: Patient evaluated, case discussed w/ team , chart reviewed Patient Chief Complaint: "I heard voices this morning" Problems Identified/Issues Discussed: Patient reports that he heard AH this morning. He reports difficulty sleeping at night. He denies current symptoms of ETOH w/drawal. We discussed that the Ativan will be tapered gradually. He continues to report feeling depressed. No adverse effects to medications reported. Medication Change: Yes (Taper Ativan ) Medical Record Reviewed: Yes Consults ordered or reviewed: Medicine consult Mental Status Examination - Cognitive Function Orientation: Person, Place, Situation, Time Memory: Intact Attention: WNL Concentration: WNL Association: WNL Fund of Knowledge: [facility] Decription of patient's judgement and insights: Chronic poor I/J re: Alcohol abuse - Mood Mood: Depressed - Affect Affect: Constricted, Depressed - Speech Speech: Soft - Formal Thought Process Formal Thought Process: Hallucinations Psychotic Thoughts and Behaviors: +AH this morning - Suicidal Ideation Suicidal Ideation: No - Homicidal Ideation Homicidal Ideation: No Goal/Treatment Plan - Goal/Treatment Plan Need for Continued Stay: Remain at risks for inpatient hospitalization, Severe depression anxiety, Discharge may exacerbated symptoms Progress Toward Problem(s) and Goals/Treatment Plan: Major Depression, severe, recurrent, w/ psychotic features; Alcohol Use Disorder ; Patient needs continued hospitalization for treatment and safety. -Individual and group therapy -Continue Neurontin 100 mg PO TID -Taper Ativan and monitor for ETOH w/drawal symptoms -Continue Seroquel 100 mg PO HS -Continue Zoloft 100 mg PO Daily -Disposition planning Estimated Date of D/C: 03/29/17 - Smoking Cessation Smoking Cessation Initiated: Yes
--- NOTE | 2017-03-26 08:33 | PCM.PYCHPN ---
Psychiatric Progress Note - Psychiatric Progress Note Patient seen today, length of contact: Patient evaluated, case discussed w/ team , chart reviewed Patient Chief Complaint: "I didn't sleep well" Problems Identified/Issues Discussed: Patient continues to report mild intermittent AH. We discussed increase Seroquel. He continues to have difficulty sleeping at night. He denies current symptoms of ETOH w/drawal. He continues to report feeling depressed. No adverse effects to medications reported. Medication Change: Yes (Increase Seroquel to 150 mg PO HS) Medical Record Reviewed: Yes Consults ordered or reviewed: Medicine consult Mental Status Examination - Cognitive Function Orientation: Person, Place, Situation, Time Memory: Intact Attention: WNL Concentration: WNL Association: WNL Fund of Knowledge: [facility] Decription of patient's judgement and insights: Chronic poor I/J re: Alcohol abuse - Mood Mood: Depressed - Affect Affect: Constricted, Depressed - Speech Speech: Soft - Formal Thought Process Formal Thought Process: Hallucinations Psychotic Thoughts and Behaviors: +intermittent AH - Suicidal Ideation Suicidal Ideation: No - Homicidal Ideation Homicidal Ideation: No Goal/Treatment Plan - Goal/Treatment Plan Need for Continued Stay: Remain at risks for inpatient hospitalization, Severe depression anxiety, Discharge may exacerbated symptoms Progress Toward Problem(s) and Goals/Treatment Plan: Major Depression, severe, recurrent, w/ psychotic features; Alcohol Use Disorder ; Patient needs continued hospitalization for treatment and safety. -Individual and group therapy -Continue Neurontin 100 mg PO TID -Continue Ativan 0.5 mg PO Q8hr and monitor for ETOH w/drawal symptoms -Increase Seroquel to 150 mg PO HS -Continue Zoloft 100 mg PO Daily -Disposition planning Estimated Date of D/C: 03/29/17
[2017-03-26] MEDS: Multivitamin With Minerals Tab PO SCH (08:55)
[2017-03-26] MEDS: Pantoprazole 40 mg EC Tab PO SCH (08:55)
[2017-03-26] MEDS: Lidocaine 5% Patch TD SCH (08:58)
--- NOTE | 2017-03-27 08:05 | CP.PCM.PN ---
Subjective - Date & Time of Evaluation Date of Evaluation: 03/27/17 Time of Evaluation: 08:00 - Subjective Subjective: 57 y/o male seen and evaluated at bedside on psyc floor. Patient is AAOx3 and is in NAD. Patient states that he is feeling better than when he came to the hospital. Patient states that he did not sleep well overnight. Patient reports that he has mild pain in his stomach at times but denies of any recent F/N/V/C/ shortness of breath/chest pain. Patient states that he has been having normal bowel movements. Patient denies of any other complains at this time. Objective - Vital Signs/Intake and Output Vital Signs (last 24 hours): Temp Pulse Resp BP Pulse Ox 97.8 F 111 H 22 133/86 97 03/26/17 16:43 03/26/17 22:57 03/26/17 22:57 03/26/17 22:57 03/22/17 22:10 - Medications Medications: Current Medications Acetaminophen (Tylenol 325mg Tab) 650 mg PO Q4 PRN PRN Reason: T>101;headache;pain 1-7 Last Admin: 03/24/17 13:02 Dose: 650 mg Al Hydrox/Mg Hydrox/Simethicone (Maalox Plus 30 Ml) 30 ml PO Q4 PRN PRN Reason: Dyspepsia Albuterol (Ventolin Hfa 90 Mcg/Actuation (8 G)) 1 puff IH RQ6 PRN PRN Reason: Shortness of Breath Amlodipine Besylate (Norvasc) 10 mg PO DAILY [facility] Last Admin: 03/26/17 09:12 Dose: 10 mg Diphenhydramine HCl (Benadryl) 50 mg IM Q6 PRN PRN Reason: Extrapyramidal S/S Unable PO Diphenhydramine HCl (Benadryl) 50 mg PO Q6 PRN PRN Reason: Extrapyramidal Symptoms Diphenhydramine HCl (Benadryl) 50 mg PO HS PRN PRN Reason: Sleep Last Admin: 03/26/17 21:06 Dose: 50 mg Folic Acid (Folic Acid) 1 mg PO DAILY [facility] Last Admin: 03/26/17 08:55 Dose: 1 mg Gabapentin (Neurontin) 100 mg PO TID [facility] Last Admin: 03/26/17 17:22 Dose: 100 mg Haloperidol (Haldol) 5 mg PO Q4 PRN PRN Reason: Agitation Last Admin: 03/25/17 21:10 Dose: 5 mg Haloperidol Lactate (Haldol) 5 mg IM Q4 PRN PRN Reason: Agitation, Unable to Take PO Ibuprofen (Motrin Tab) 600 mg PO Q6 PRN PRN Reason: Pain, moderate (4-7) Last Admin: 03/26/17 08:56 Dose: 600 mg Lidocaine (Lidoderm) 1 ea TD DAILY [facility] Last Admin: 03/26/17 08:58 Dose: 1 ea Lorazepam (Ativan) 2 mg IM Q4 PRN PRN Reason: Anxiety/Agitation,Unable PO Lorazepam (Ativan) 2 mg PO Q4 PRN PRN Reason: Anxiety/Agitation Last Admin: 03/25/17 04:09 Dose: 2 mg Lorazepam (Ativan) 0.5 mg PO TID [facility] Last Admin: 03/26/17 17:22 Dose: 0.5 mg Magnesium Hydroxide (Milk Of Magnesia) 30 ml PO HS PRN PRN Reason: Constipation Multivitamins/Minerals (Therapeutic-M Tab) 1 tab PO DAILY [facility] Last Admin: 03/26/17 08:55 Dose: 1 tab Nicotine (Nicoderm Cq) 1 patch TD DAILY [facility] Last Admin: 03/26/17 09:13 Dose: Not Given Pantoprazole Sodium (Protonix Ec Tab) 40 mg PO DAILY [facility] Last Admin: 03/26/17 08:55 Dose: 40 mg Quetiapine Fumarate (Seroquel) 150 mg PO HS [facility] Last Admin: 03/26/17 21:06 Dose: 150 mg Sertraline HCl (Zoloft) 100 mg PO DAILY [facility] Last Admin: 03/26/17 08:55 Dose: 100 mg Thiamine HCl (Vitamin B1 Tab) 100 mg PO DAILY [facility] Last Admin: 03/26/17 08:55 Dose: 100 mg - Labs Labs: 03/22/17 17:50 03/24/17 06:40 - Constitutional Appears: Well, Non-toxic, No Acute Distress - Head Exam Head Exam: ATRAUMATIC - Eye Exam Eye Exam: Normal appearance - ENT Exam ENT Exam: Mucous Membranes Moist, Normal Exam - Neck Exam Neck Exam: Full ROM, Normal Inspection - Respiratory Exam Respiratory Exam: Clear to Ausculation Bilateral, NORMAL BREATHING PATTERN - Cardiovascular Exam Cardiovascular Exam: REGULAR RHYTHM, +S1, +S2 - GI/Abdominal Exam GI & Abdominal Exam: Normal Bowel Sounds Additional comments: pain on palpation of the RUQ and RLQ - Rectal Exam Rectal Exam: Deferred - Extremities Exam Extremities Exam: Full ROM, Normal Inspection. absent: Calf Tenderness, Pedal Edema, Tenderness - Back Exam Back Exam: Full ROM, NORMAL INSPECTION - Neurological Exam Neurological Exam: Alert, Awake, Normal Gait, Oriented x3 - Psychiatric Exam Psychiatric exam: Normal Affect, Normal Mood - Skin Skin Exam: Intact, Normal Color, Warm Assessment and Plan - Assessment and Plan (Free Text) Assessment: 57 y/o male with PMHx of Anemia, Anxiety, Asthma, Back Problems, Bipolar Disorder, COPD, Depression, Gastritis (secondary to ETOH), GERD, HTN, Hypercholesterolemia, Pancreatitis (secondary to ETOH), Schizophrenia, Seizures (secondary to ETOH withdrawal), Chronic Pain (low back pain) seen and evaluated at bedside Plan: Patient seen and evaluated Vitals labs and charts reviewed Alcohol withdrawal protocol as per psych CXR reviewed: - No active pulmonary disease EKG reviewed: - Normal sinus rhythm, Left axis deviation and nonspecific T wave abnormality Medication list reviewed Will continue to monitor patient while in-house
[2017-03-27] MEDS: Multivitamin With Minerals Tab PO SCH (08:38)
[2017-03-27] MEDS: Pantoprazole 40 mg EC Tab PO SCH (08:39)
[2017-03-27] MEDS: Lidocaine 5% Patch TD SCH (11:47)
[2017-03-27] MEDS: Amylase/Lipase/Protease 5,000 U ECC PO SCH (13:58)
[2017-03-28] MEDS: Multivitamin With Minerals Tab PO SCH (09:43)
[2017-03-28] MEDS: Amylase/Lipase/Protease 5,000 U ECC PO SCH (09:43)
[2017-03-28] MEDS: Pantoprazole 40 mg EC Tab PO SCH (09:43)
[2017-03-28] MEDS: Lidocaine 5% Patch TD SCH (09:51)
--- NOTE | 2017-03-28 13:38 | PCM.PYCHPN ---
Psychiatric Progress Note - Psychiatric Progress Note Patient seen today, length of contact: Patient evaluated, case discussed w/ team , chart reviewed Patient Chief Complaint: I slept a little better Problems Identified/Issues Discussed: patient reported less depressed mood better sleep denied any current suicidal thoughts, denied any current perceptual disturbances denied any current homicidal ideations CBT provided Medical Problems: back pain, COPD , gastritis asthma DSM 5 Symptoms Update: major depression alcohol use disorder Medication Change: No Medical Record Reviewed: Yes Mental Status Examination - Cognitive Function Orientation: Person, Place, Situation, Time Memory: Intact Attention: WNL Concentration: WNL Association: WNL Fund of Knowledge: WNL - Mood Mood: Depressed - Affect Affect: Constricted, Depressed - Speech Speech: Soft - Formal Thought Process Formal Thought Process: No Impairment - Suicidal Ideation Suicidal Ideation: No - Homicidal Ideation Homicidal Ideation: No Goal/Treatment Plan - Goal/Treatment Plan Need for Continued Stay: Remain at risks for inpatient hospitalization, Severe depression anxiety, Discharge may exacerbated symptoms Progress Toward Problem(s) and Goals/Treatment Plan: alcohol withdrawal protocol follow up on symptoms and signs of alcohol withdrawal' continue with zoloft and neurontin and seroquel follow up on psychopharmacological effect and side effect profile Estimated Date of D/C: 03/29/17
--- NOTE | 2017-03-28 13:59 | PCM.PYCHPN ---
Psychiatric Progress Note - Psychiatric Progress Note Patient seen today, length of contact: Patient evaluated, case discussed w/ team , chart reviewed Patient Chief Complaint: I STILL HAVE SHOULDER PAIN Problems Identified/Issues Discussed: patient reported less depressed mood better sleep denied any current suicidal thoughts, denied any current perceptual disturbances denied any current homicidal ideations, patient evaluated yesterday by family practice for pain and gastritis, consult reviewed CBT provided Medical Problems: back pain, COPD , gastritis asthma Medication Change: No Medical Record Reviewed: Yes Mental Status Examination - Cognitive Function Orientation: Person, Place, Situation, Time Memory: Intact Attention: WNL Concentration: WNL Association: WNL Fund of Knowledge: WNL - Mood Mood: Depressed - Affect Affect: Constricted, Depressed - Speech Speech: Soft - Formal Thought Process Formal Thought Process: No Impairment - Suicidal Ideation Suicidal Ideation: No - Homicidal Ideation Homicidal Ideation: No Goal/Treatment Plan - Goal/Treatment Plan Need for Continued Stay: Remain at risks for inpatient hospitalization, Severe depression anxiety, Discharge may exacerbated symptoms Progress Toward Problem(s) and Goals/Treatment Plan: continue with zoloft and neurontin and seroquel follow up on psychopharmacological effect and side effect profile Estimated Date of D/C: 03/29/17
[2017-03-29] MEDS: Multivitamin With Minerals Tab PO SCH (09:44)
[2017-03-29] MEDS: Pantoprazole 40 mg EC Tab PO SCH (09:45)
[2017-03-29] MEDS: Amylase/Lipase/Protease 5,000 U ECC PO SCH (09:45)
[2017-03-29] MEDS: Lidocaine 5% Patch TD SCH (09:57)
--- NOTE | 2017-03-29 14:13 | PCM.PYCHPN ---
Psychiatric Progress Note - Psychiatric Progress Note Patient seen today, length of contact: Patient evaluated, case discussed w/ team , chart reviewed Patient Chief Complaint: my mood is getting better Problems Identified/Issues Discussed: patient reported mood is less depressed better sleep denied any current suicidal thoughts, denied any current perceptual disturbances denied any current homicidal ideations, patient evaluated yesterday by family practice for pain and gastritis, consult reviewed CBT and brief motivational interview provided discussed with patient importance of attending AA meetings on discharge Medical Problems: back pain, COPD , gastritis asthma Medication Change: No Medical Record Reviewed: Yes Mental Status Examination - Cognitive Function Orientation: Person, Place, Situation, Time Memory: Intact Attention: WNL Concentration: WNL Association: WNL Fund of Knowledge: WNL - Mood Mood: Neutral - Affect Affect: Constricted, Depressed - Speech Speech: Appropriate - Formal Thought Process Formal Thought Process: No Impairment Psychotic Thoughts and Behaviors: patient denied any current psychotic symptoms non elicited - Suicidal Ideation Suicidal Ideation: No - Homicidal Ideation Homicidal Ideation: No Goal/Treatment Plan - Goal/Treatment Plan Need for Continued Stay: Remain at risks for inpatient hospitalization, Severe depression anxiety, Discharge may exacerbated symptoms Progress Toward Problem(s) and Goals/Treatment Plan: continue with zoloft and neurontin and seroquel follow up on psychopharmacological effect and side effect profile Estimated Date of D/C: 03/29/17
--- NOTE | 2017-03-30 08:02 | CP.PCM.PN ---
Subjective - Date & Time of Evaluation Date of Evaluation: 03/30/17 Time of Evaluation: 07:59 - Subjective Subjective: 57 y/o male seen and evaluated this morning at bedside on ps floor. Patient is resting comfortably in his bed and appears in NAD. Patient is AAOx3 and denies of any acute overnight events. Patient denies of any recent F/N/V/C/ shortness of breath/chest pain. Continues to complain of right arm pain. Denies of any other complains at this time. Objective - Vital Signs/Intake and Output Vital Signs (last 24 hours): Temp Pulse Resp BP Pulse Ox 98.1 F 102 H 18 137/75 97 03/29/17 16:07 03/29/17 16:07 03/29/17 16:07 03/29/17 16:07 03/22/17 22:10 - Medications Medications: Current Medications Acetaminophen (Tylenol 325mg Tab) 650 mg PO Q4 PRN PRN Reason: T>101;headache;pain 1-7 Last Admin: 03/27/17 11:49 Dose: 650 mg Al Hydrox/Mg Hydrox/Simethicone (Maalox Plus 30 Ml) 30 ml PO Q4 PRN PRN Reason: Dyspepsia Albuterol (Ventolin Hfa 90 Mcg/Actuation (8 G)) 1 puff IH RQ6 PRN PRN Reason: Shortness of Breath Last Admin: 03/29/17 12:18 Dose: 1 puff Amlodipine Besylate (Norvasc) 10 mg PO DAILY [facility] Last Admin: 03/29/17 09:46 Dose: 10 mg Amylase (Pancrease 76884 [id number] U) 5,000 u PO DAILY [facility] Last Admin: 03/29/17 09:45 Dose: 5,000 u Diphenhydramine HCl (Benadryl) 50 mg IM Q6 PRN PRN Reason: Extrapyramidal S/S Unable PO Diphenhydramine HCl (Benadryl) 50 mg PO Q6 PRN PRN Reason: Extrapyramidal Symptoms Diphenhydramine HCl (Benadryl) 50 mg PO HS PRN PRN Reason: Sleep Last Admin: 03/26/17 21:06 Dose: 50 mg Folic Acid (Folic Acid) 1 mg PO DAILY [facility] Last Admin: 03/29/17 09:44 Dose: 1 mg Gabapentin (Neurontin) 100 mg PO TID [facility] Last Admin: 03/29/17 18:25 Dose: 100 mg Haloperidol (Haldol) 5 mg PO Q4 PRN PRN Reason: Agitation Last Admin: 03/25/17 21:10 Dose: 5 mg Haloperidol Lactate (Haldol) 5 mg IM Q4 PRN PRN Reason: Agitation, Unable to Take PO Ibuprofen (Motrin Tab) 600 mg PO Q6 PRN PRN Reason: Pain, moderate (4-7) Last Admin: 03/29/17 20:15 Dose: 600 mg Lidocaine (Lidoderm) 1 ea TD DAILY [facility] Last Admin: 03/29/17 09:57 Dose: 1 ea Lorazepam (Ativan) 0.5 mg PO TID [facility] Last Admin: 03/29/17 18:24 Dose: 0.5 mg Magnesium Hydroxide (Milk Of Magnesia) 30 ml PO HS PRN PRN Reason: Constipation Multivitamins/Minerals (Therapeutic-M Tab) 1 tab PO DAILY [facility] Last Admin: 03/29/17 09:44 Dose: 1 tab Nicotine (Nicoderm Cq) 1 patch TD DAILY [facility] Last Admin: 03/29/17 09:45 Dose: 1 patch Pantoprazole Sodium (Protonix Ec Tab) 40 mg PO DAILY [facility] Last Admin: 03/29/17 09:45 Dose: 40 mg Quetiapine Fumarate (Seroquel) 150 mg PO HS [facility] Last Admin: 03/29/17 21:01 Dose: 150 mg Sertraline HCl (Zoloft) 100 mg PO DAILY [facility] Last Admin: 03/29/17 09:44 Dose: 100 mg Thiamine HCl (Vitamin B1 Tab) 100 mg PO DAILY [facility] Last Admin: 03/29/17 09:44 Dose: 100 mg - Labs Labs: 03/22/17 17:50 03/24/17 06:40 - Constitutional Appears: Well, Non-toxic, No Acute Distress - Head Exam Head Exam: ATRAUMATIC - Eye Exam Eye Exam: Normal appearance - ENT Exam ENT Exam: Mucous Membranes Moist, Normal Exam - Neck Exam Neck Exam: Full ROM, Normal Inspection - Respiratory Exam Respiratory Exam: Clear to Ausculation Bilateral, NORMAL BREATHING PATTERN. absent: Rales, Rhonchi, Wheezes - Cardiovascular Exam Cardiovascular Exam: REGULAR RHYTHM, +S1, +S2. absent: Diastolic murmur, Murmur - GI/Abdominal Exam GI & Abdominal Exam: Soft, Normal Bowel Sounds - Rectal Exam Rectal Exam: Deferred - Back Exam Back Exam: Full ROM, NORMAL INSPECTION. absent: tenderness - Neurological Exam Neurological Exam: Alert, Awake, Oriented x3 - Psychiatric Exam Psychiatric exam: Normal Affect, Normal Mood - Skin Skin Exam: Intact, Normal Color, Warm Assessment and Plan - Assessment and Plan (Free Text) Assessment: 57 y/o male with PMHx of Anemia, Anxiety, Asthma, Back Problems, Bipolar Disorder, COPD, Depression, Gastritis (secondary to ETOH), GERD, HTN, Hypercholesterolemia, Pancreatitis (secondary to ETOH), Schizophrenia, Seizures (secondary to ETOH withdrawal), Chronic Pain (low back pain) seen and evaluated at bedside Plan: Patient seen and evaluated Vitals labs and charts reviewed Will continue to monitor patient while in-house
[2017-03-30] MEDS: Multivitamin With Minerals Tab PO SCH (09:28)
[2017-03-30] MEDS: Lidocaine 5% Patch TD SCH (09:29)
[2017-03-30] MEDS: Amylase/Lipase/Protease 5,000 U ECC PO SCH (09:29)
[2017-03-30] MEDS: Pantoprazole 40 mg EC Tab PO SCH (09:30)
--- NOTE | 2017-03-30 11:44 | PCM.PYCHPN ---
Psychiatric Progress Note - Psychiatric Progress Note Patient seen today, length of contact: Patient evaluated, case discussed w/ team , chart reviewed Patient Chief Complaint: my mood is getting better but i still have pain Problems Identified/Issues Discussed: patient reported mood is less depressed however at times irritable due to the pain, reported no changes in sleep denied any current suicidal thoughts, denied any current perceptual disturbances denied any current homicidal ideations, patient evaluated yesterday by family practice for pain and gastritis , consult reviewed CBT and brief motivational interview provided discussed with patient importance of attending AA meetings on discharge Medical Problems: back pain, COPD , gastritis asthma DSM 5 Symptoms Update: major depression alcohol induced mood disorder alcohol use disorder Medication Change: No Medical Record Reviewed: Yes Mental Status Examination - Cognitive Function Orientation: Person, Place, Situation, Time Memory: Intact Attention: WNL Concentration: WNL Association: WNL Fund of Knowledge: WNL - Mood Mood: Neutral - Affect Affect: Constricted, Depressed - Speech Speech: Appropriate - Formal Thought Process Formal Thought Process: No Impairment Psychotic Thoughts and Behaviors: patient denied any current psychotic symptoms non elicited - Suicidal Ideation Suicidal Ideation: No - Homicidal Ideation Homicidal Ideation: No Goal/Treatment Plan - Goal/Treatment Plan Need for Continued Stay: Remain at risks for inpatient hospitalization, Severe depression anxiety, Discharge may exacerbated symptoms Progress Toward Problem(s) and Goals/Treatment Plan: continue with zoloft and neurontin and seroquel follow up on psychopharmacological effect and side effect profile Estimated Date of D/C: 03/29/17
[2017-03-31] MEDS: Multivitamin With Minerals Tab PO SCH (08:56)
[2017-03-31] MEDS: Lidocaine 5% Patch TD SCH (08:57)
[2017-03-31 08:58] VITALS: BP 119/75
[2017-03-31] MEDS: Pantoprazole 40 mg EC Tab PO SCH (09:01)
[2017-03-31] MEDS: Amylase/Lipase/Protease 5,000 U ECC PO SCH (09:01)
--- NOTE | 2017-03-31 14:13 | PCM.PYCHDC ---
Mental Status Examination - Mental Status Examination Orientation: Person, Place, Situation, Time Memory: Intact Mood: Neutral Affect: Broad Speech: Appropriate Attention: WNL Concentration: WNL Association: WNL Fund of Knowledge: Poor Formal Thought Process: No Impairment Description of patient's judgement and insight: FAIR JUDGMENT AND INSIGHT Psychotic Thoughts and Behaviors: patient denied any current psychotic symptoms non elicited Suicidal Ideation: No Current Homicidal Ideation?: No Discharge Summary - Discharge Note Reason for Hospitalization: Pt is a 57 year old, Male, who was brought to the ED by EMS secondary to pt presenting with Homicidal Ideation towards his landlord as his landlord has threatened to "kick him out" and having auditory(commanding in nature) hallucinations to kill other people. Pt denied having a plan to hurt others. Pt reported a long history of psychiatric treatment. Pt denied having any SI,SP or intent;however, pt admitted to feeling depressed. Pt reported he drank a bottle of "vodka" on day of admission around noon. Pt denied using any other substances. Pt denied having any visual or tactile hallucinations. Pt reported poor appetite and significant sleep disturbances as pt stated he has not been taking his medication because he cannot seem to be able to refill the prescription. patient however reported feeling depressed and anhedonic Consultations:: List each consultation separately and include: 1. Reason for request. 2. Findings. 3. Follow-up Consultations: family practice consult Summary of Hospital Course include:: 1. Description of specific treatment plan utilized for patients during their course of treatmen. 2. Summarize the time- course for resolution of acute symptoms and/or regressed behaviors. 3. Describe issues identified and worked on during hospitalization. 4. Describe medication utilized. 5. Describe medical problems identified and treated. 6. Reassessment of suicide risk Summary of Hospital Course: PATIENT WAS PLACED ON ALCOHOLWITHDRAWAL PROTOCOL STARTED ON ZOLOFT AND SEROQUEL FAMILY PRACTICE CONSULT FOR PAIN AND CHRONIC PANCREATITIS CBT AND GROUP THERAPY PROVIDED PATIENT ON DISCHARGE , MOOD WAS STABLE, DENIED ANY CURRENT SUICIDAL OR HOMICIDAL IDEATIONS DENIED PERCEPTUAL DISTURBANCES - Diagnosis (1) Depression Current Visit: Yes Status: Acute (2) Alcohol abuse Current Visit: Yes Status: Chronic Comment: Chronic, no withdrawal signs or symptoms. CIWA=0 - Ativan PRN - Final Diagnosis (DSM 5) Condition upon Discharge: STABLE Disposition: HOME/ ROUTINE Follow-up Treatment Plan: OUT PATIENT REFERRALS FOR OUTPATIENT TREATMENT PATIENT ADVISED TO ATTEND AA GROUPS Prescriptions/Medication Reconciliation: Folic Acid 1 mg PO DAILY 30 Days #30 tab Gabapentin [Neurontin] 100 mg PO TID 90 Days #90 cap QUEtiapine [SEROquel] 150 mg PO HS 30 Days #90 tab Sertraline [Zoloft] 100 mg PO DAILY 30 Days #30 tab - Antipsychotic Medications Pt discharged on 2 or more routine antipsychotic medications: No
[2017-03-31 14:18] VITALS: PULSE 111; RESP 22; TEMP 97.7
== END 2017-03-31 14:36 | disposition home or self-care (01) | DRG 750 ==
LOC: H.ER 16:47 → H.ERHOLD 21:19 → H.PSYCH 22:13
PROVIDERS: ADMIT Psychiatry & Neurology Psychiatry; ATTEND Psychiatry & Neurology Psychiatry
PROC: HZ52ZZZ Individual Psychotherapy for Substance Abuse Treatment, Cognitive-Behavioral (ICD-10-PCS; principal; 2017-03-22)
PROC: GZHZZZZ Group Psychotherapy (ICD-10-PCS; 2017-03-22)
PROC: GZ58ZZZ Individual Psychotherapy, Cognitive-Behavioral (ICD-10-PCS; 2017-03-22)
DX: F10.14 Alcohol abuse with alcohol-induced mood disorder (principal); F33.3 Major depressive disorder, recurrent, severe with psychotic symptoms; K70.30 Alcoholic cirrhosis of liver without ascites; E11.9 Type 2 diabetes mellitus without complications; G40.89 Other seizures; I10 Essential (primary) hypertension; D64.9 Anemia, unspecified; J44.9 Chronic obstructive pulmonary disease, unspecified; F10.129 Alcohol abuse with intoxication, unspecified; K29.20 Alcoholic gastritis without bleeding; E78.00 Pure hypercholesterolemia, unspecified; K21.9 Gastro-esophageal reflux disease without esophagitis; F41.9 Anxiety disorder, unspecified; G89.29 Other chronic pain; M54.5 Low back pain; R45.850 Homicidal ideations; Y90.7 Blood alcohol level of 200-239 mg/100 ml; Z91.19 Patient's noncompliance with other medical treatment and regimen; Z59.0 Homelessness; Z79.899 Other long term (current) drug therapy

== ENCOUNTER 2017-04-13 12:16 | Emergency (ER) | payer MEDICARE, OTHER ==
[2017-04-13 12:16] VITALS: BMI 30.9
[2017-04-13 12:20] VITALS: BP 137/83; PULSE 106; RESP 18; TEMP 98.2; O2SAT 98
--- NOTE | 2017-04-13 12:58 | ED PDOC ---
HPI: CCC, URI, Sore Throat Time Seen by Provider: 04/13/17 12:42 Chief Complaint (Nursing): Psychiatric Evaluation Chief Complaint (Provider): Psychiatric evaluation History Per: Patient, EMS History/Exam Limitations: no limitations Onset/Duration Of Symptoms: Days (x2) Current Symptoms Are (Timing): Still Present Location Of Pain: Throat (sore) Associated Symptoms: Sore Throat, Cough (non productive). denies: Fever Ear Symptoms: Bilateral: None Pain Scale Rating Of: 5 Additional Complaint(s): Ryley Torres is a 57 year old male, with a past medical history of drug abuse and seizure disorder, who was brought to the emergency department complaining of a non productive cough and sore throat onset 2 days ago. Patient admits to drinking ETOH this morning. He is angry but denies any suicidal or homicidal ideations. No further medical complaints. PMD: None provided. Past Medical History Reviewed: Historical Data, Nursing Documentation, Vital Signs Vital Signs: Last Vital Signs Temp 98.2 F 04/13/17 12:18 Pulse 106 H 04/13/17 12:18 Resp 18 04/13/17 12:18 BP 137/83 04/13/17 12:18 Pulse Ox 98 04/13/17 21:09 - Medical History PMH: Anemia, Anxiety, Asthma, Back Problems, Bipolar Disorder, COPD, Depression , Gastritis (secondary to ETOH), GERD, Hypercholesterolemia, Pancreatitis ( secondary to ETOH), Schizophrenia, Seizures (secondary to ETOH withdrawal), Chronic Pain (low back pain ) Denies: Alzheimer's Disease, Atrial Fibrillation, Bronchitis, Cardia Arrhythmia, CHF, Dementia, Diabetes, Emphysema, Hepatitis, HIV, HTN, Migraine, Mitral Valve Prolapse, Multiple Sclerosis, Parkinson's Disease, Peripheral Edema , Pneumonia, Pulmonary Embolism, Chronic Kidney Disease, Sexually Transmitted Disease, Sleep Apnea - Surgical History Surgical History: Back Surgery (4 weeks ago) Denies: Pacemaker - Family History Family History: States: Diabetes - Social History Current smoker - smoking cessation education provided: Yes (Heavy smoker >10 cigarettes daily) Alcohol: > 2 Drinks/Day (2-3 pts of vodka/day) Drugs: Denies - Immunization History Hx Tetanus Toxoid Vaccination: Yes (As per patient, TDaP uptodate ( about 3 years ago)) Hx Influenza Vaccination: No Hx Pneumococcal Vaccination: No - Home Medications Home Medications: Ambulatory Orders Medication Instructions Recorded Folic Acid 1 mg PO DAILY #30 tab 12/19/16 Thiamine [Vitamin B1 Tab] 100 mg PO DAILY #30 tab 12/19/16 amLODIPine [Norvasc] 10 mg PO DAILY #30 tab 12/19/16 traMADol [Ultram] 50 mg PO Q8 PRN #15 tab 12/27/16 Albuterol HFA [Ventolin HFA 90 1 puff IH [id number] PRN 01/01/17 mcg/actuation (8 g)] Esomeprazole Magnesium [Nexium] 20 mg PO DAILY 01/01/17 M-Vit,Tx,Iron,Mins/Calc/Folic 1 tab PO DAILY 01/01/17 [Thera-M Caplet] Amylase/Lipase/Protease [Pancrease 5,000 unit PO DAILY #30 ecc 01/03/17 [id number] U-[id number] U] Folic Acid 1 mg PO DAILY 30 Days #30 tab 03/31/17 Gabapentin [Neurontin] 100 mg PO TID 90 Days #90 cap 03/31/17 QUEtiapine [SEROquel] 150 mg PO HS 30 Days #90 tab 03/31/17 Sertraline [Zoloft] 100 mg PO DAILY 30 Days #30 tab 03/31/17 Ranitidine HCl [Zantac 75] 75 mg PO BID #14 tablet 04/05/17 Amoxicillin 875 mg PO BID #10 tablet 04/13/17 Ibuprofen [Motrin Tab] 600 mg PO Q6 PRN #10 tab 04/13/17 - Allergies Allergies/Adverse Reactions: Allergies Allergy/AdvReac Type Severity Reaction Status Date / Time No Known Allergies Allergy Verified 04/13/17 12:18 Review of Systems ROS Statement: Except As Marked, All Systems Reviewed And Found Negative Constitutional: Negative for: Fever ENT: Positive for: Throat Pain Respiratory: Positive for: Cough (non productive) Psych: Negative for: Suicidal ideation (& homicidal ideation) Physical Exam - Reviewed Nursing Documentation Reviewed: Yes Vital Signs Reviewed: Yes - Physical Exam Appears: Positive for: No Acute Distress Head Exam: Positive for: ATRAUMATIC, NORMAL INSPECTION, NORMOCEPHALIC Skin: Positive for: Normal Color, Warm, Dry Eye Exam: Positive for: EOMI, Normal appearance, PERRL ENT: Positive for: Other (erythematous throat). Negative for: Tonsillar Exudate Neck: Positive for: Normal, Painless ROM, Supple Cardiovascular/Chest: Positive for: Regular Rate, Rhythm. Negative for: Murmur Respiratory: Positive for: Rhonchi (scattered). Negative for: Wheezing, Respiratory Distress Extremity: Positive for: Normal ROM. Negative for: Deformity, Swelling Neurologic/Psych: Positive for: Alert, Oriented. Negative for: alarm signal operator II-XII (no focal deficits) - ECG O2 Sat by Pulse Oximetry: 98 (RA) Pulse Ox Interpretation: Normal Medical Decision Making Medical Decision Making: Initial Plan: --Alcohol serum --Chest two view (PA/LAT) [RAD] --Influenza A B --Rapid Strep Group A Antigen --reevaluation 1331 Chest x-ray FINDINGS: Examination limited by habitus. LUNGS: No focal consolidation. Please note that chest x-ray has limited sensitivity for the detection of pulmonary masses. PLEURA: No significant pleural effusion identified. No definite pneumothorax . CARDIOVASCULAR: The cardiomediastinal silhouette appears within normal limits of size. OSSEOUS STRUCTURES: No acute osseous abnormality identified. VISUALIZED UPPER ABDOMEN: Unremarkable. OTHER FINDINGS: None. IMPRESSION: No focal consolidation, significant pleural effusion, or definite pneumothorax identified. Scribe Attestation: Documented by Rodolfo Parsons, acting as a scribe for Giovani Pryor MD Provider Scribe Attestation: All medical record entries made by the Scribe were at my direction and personally dictated by me. I have reviewed the chart and agree that the record accurately reflects my personal performance of the history, physical exam, medical decision making, and the department course for this patient. I have also personally directed, reviewed, and agree with the discharge instructions and disposition. Disposition - Clinical Impression Clinical Impression: Pharyngitis, Alcohol intoxication, Schizoaffective disorder - Patient ED Disposition Is Patient to be Admitted: Transfer of Care - Disposition Disposition: Transfer of Care Disposition Time: 15:00 Condition: STABLE Prescriptions: Amoxicillin 875 mg PO BID #10 tablet Ibuprofen [Motrin Tab] 600 mg PO Q6 PRN #10 tab PRN Reason: Pain, Moderate (4-7) Instructions: Pharyngitis (ED), Schizoaffective Disorder (ED), Alcohol Intoxication (ED) Forms: [employer] ([employer]) Patient Signed Over To: Mitch Rivas III
--- NOTE | 2017-04-13 13:23 | RAD ---
HISTORY: cough COMPARISON: Chest x-ray performed 03/22/17 TECHNIQUE: Chest PA and lateral FINDINGS: Examination limited by habitus. LUNGS: No focal consolidation. Please note that chest x-ray has limited sensitivity for the detection of pulmonary masses. PLEURA: No significant pleural effusion identified. No definite pneumothorax . CARDIOVASCULAR: The cardiomediastinal silhouette appears within normal limits of size. OSSEOUS STRUCTURES: No acute osseous abnormality identified. VISUALIZED UPPER ABDOMEN: Unremarkable. OTHER FINDINGS: None. IMPRESSION: No focal consolidation, significant pleural effusion, or definite pneumothorax identified.
--- NOTE | 2017-04-13 15:05 | ED PDOC ---
- ECG O2 Sat by Pulse Oximetry: 98 (RA) Medical Decision Making Medical Decision Makin -Patient transferred [facility] by [facility]. Pryor, pending evaluation by crisis. Patient cleared by crisis Dr White To treat for pharyngitis. Followup PMD. Disposition - Clinical Impression Clinical Impression: Alcohol intoxication, Schizoaffective disorder - POA Present On Arrival: None - Disposition Disposition: Routine/Home Disposition Time: 21:08 Condition: STABLE Prescriptions: Amoxicillin 875 mg PO BID #10 tablet Ibuprofen [Motrin Tab] 600 mg PO Q6 PRN #10 tab PRN Reason: Pain, Moderate (4-7) Instructions: Pharyngitis (ED), Schizoaffective Disorder (ED), Alcohol Intoxication (ED) Forms: [facility] ([employer])
== END 2017-04-13 21:30 | disposition home or self-care (01) ==
LOC: H.ER 12:16
DX: F10.129 Alcohol abuse with intoxication, unspecified (principal); J02.9 Acute pharyngitis, unspecified; E78.00 Pure hypercholesterolemia, unspecified; F25.9 Schizoaffective disorder, unspecified; F31.9 Bipolar disorder, unspecified; F41.9 Anxiety disorder, unspecified; J44.9 Chronic obstructive pulmonary disease, unspecified; K21.9 Gastro-esophageal reflux disease without esophagitis; K85.90 Acute pancreatitis without necrosis or infection, unspecified; Z87.19 Personal history of other diseases of the digestive system

== ENCOUNTER 2017-04-27 13:53 | Emergency (ER) | payer OTHER ==
[2017-04-27 13:54] VITALS: BMI 30.9
[2017-04-27 14:00] VITALS: BP 150/84; RESP 18; TEMP 98; O2SAT 98
[2017-04-27 14:46] LABS: BASO % 0.5 % (0.0-2.0); EOS # 0.1 K/uL (0.0-0.7); EOS % 0.6 % (0.0-4.0); HEMATOCRIT 39.4 % (35.0-51.0); LYMPH # 2.5 K/uL (1.0-4.3); LYMPH % 25.3 % (20.0-40.0); MEAN CELL VOLUME 94.4 fl (80.0-94.0); MEAN CORPUSCULAR HEMOGLOBIN 33.1 pg (27.0-31.0); MEAN PLATELET VOLUME 7.4 fl (7.2-11.7); MONO # 0.5 K/uL (0.0-0.8); MONO % 4.9 % (0.0-10.0); NEUT # 6.7 K/uL (1.8-7.0); NEUT % 68.7 % (50.0-75.0); NRBC % 0.1 % (0.0-0.0); RED CELL DISTRIBUTION WIDTH 14.3 % (11.5-14.5); WHITE BLOOD COUNT 9.7 K/uL (4.8-10.8)
--- NOTE | 2017-04-27 15:08 | ED PDOC ---
HPI: Psych/Substance Abuse Time Seen by Provider: 04/27/17 14:06 Chief Complaint (Nursing): Psychiatric Evaluation Chief Complaint (Provider): Psych evaluation History Per: Patient History/Exam Limitations: no limitations Onset/Duration Of Symptoms: Hrs Additional Complaint(s): Patient is a 57 y/o male, well-known to the ED, with a history of alcohol abuse and depression presenting to the ED for a psych evaluation. Reports that he was hearing voices today telling him to hurt himself. Notes starting Abilify one week ago and admits to drinking alcohol this morning. Denies recent suicide attempt, ingestion, suicidal or homicidal ideation, or other complaints. PCP: Dr. Banda Past Medical History Reviewed: Historical Data, Nursing Documentation, Vital Signs Vital Signs: Last Vital Signs Temp 98.0 F 04/27/17 13:56 Pulse 125 H 04/27/17 13:56 Resp 18 04/27/17 13:56 BP 150/84 04/27/17 13:56 Pulse Ox 98 04/27/17 13:56 - Medical History PMH: Anemia, Anxiety, Asthma, Back Problems, Bipolar Disorder, COPD, Depression , Gastritis (secondary to ETOH), GERD, Hypercholesterolemia, Pancreatitis ( secondary to ETOH), Schizophrenia, Seizures (secondary to ETOH withdrawal), Chronic Pain (low back pain ) Denies: Alzheimer's Disease, Atrial Fibrillation, Bronchitis, Cardia Arrhythmia, CHF, Dementia, Diabetes, Emphysema, Hepatitis, HIV, HTN, Migraine, Mitral Valve Prolapse, Multiple Sclerosis, Parkinson's Disease, Peripheral Edema , Pneumonia, Pulmonary Embolism, Chronic Kidney Disease, Sexually Transmitted Disease, Sleep Apnea - Surgical History Surgical History: Back Surgery (4 weeks ago) Denies: Pacemaker - Family History Family History: States: Diabetes - Social History Current smoker - smoking cessation education provided: Yes Ex-Smoker (has not smoked in the last 12 months): No Alcohol: > 2 Drinks/Day Drugs: Denies - Immunization History Hx Tetanus Toxoid Vaccination: Yes (As per patient, TDaP uptodate ( about 3 years ago)) Hx Influenza Vaccination: No Hx Pneumococcal Vaccination: No - Home Medications Home Medications: Ambulatory Orders Medication Instructions Recorded Folic Acid 1 mg PO DAILY #30 tab 12/19/16 Thiamine [Vitamin B1 Tab] 100 mg PO DAILY #30 tab 12/19/16 amLODIPine [Norvasc] 10 mg PO DAILY #30 tab 12/19/16 traMADol [Ultram] 50 mg PO Q8 PRN #15 tab 12/27/16 Albuterol HFA [Ventolin HFA 90 1 puff IH [id number] PRN 01/01/17 mcg/actuation (8 g)] Esomeprazole Magnesium [Nexium] 20 mg PO DAILY 01/01/17 M-Vit,Tx,Iron,Mins/Calc/Folic 1 tab PO DAILY 01/01/17 [Thera-M Caplet] Amylase/Lipase/Protease [Pancrease 5,000 unit PO DAILY #30 ecc 01/03/17 03197 U-5000 [id number] U] Folic Acid 1 mg PO DAILY 30 Days #30 tab 03/31/17 Gabapentin [Neurontin] 100 mg PO TID 90 Days #90 cap 03/31/17 QUEtiapine [SEROquel] 150 mg PO HS 30 Days #90 tab 03/31/17 Sertraline [Zoloft] 100 mg PO DAILY 30 Days #30 tab 03/31/17 Ranitidine HCl [Zantac 75] 75 mg PO BID #14 tablet 04/05/17 Amoxicillin 875 mg PO BID #10 tablet 04/13/17 Ibuprofen [Motrin Tab] 600 mg PO Q6 PRN #10 tab 04/13/17 - Allergies Allergies/Adverse Reactions: Allergies Allergy/AdvReac Type Severity Reaction Status Date / Time No Known Allergies Allergy Verified 04/27/17 13:55 Review of Systems ROS Statement: Except As Marked, All Systems Reviewed And Found Negative Psych: Positive for: Other (auditory hallucinations). Negative for: Suicidal ideation (homicidal ideation) Physical Exam - Reviewed Nursing Documentation Reviewed: Yes Vital Signs Reviewed: Yes - Physical Exam Appears: Positive for: Well (well-dressed), No Acute Distress Head Exam: Positive for: ATRAUMATIC, NORMAL INSPECTION, NORMOCEPHALIC Skin: Positive for: Normal Color, Warm, Dry Eye Exam: Positive for: Normal appearance Neck: Positive for: Normal Cardiovascular/Chest: Positive for: Regular Rate, Rhythm. Negative for: Murmur Respiratory: Positive for: Normal Breath Sounds. Negative for: Accessory Muscle Use, Respiratory Distress Gastrointestinal/Abdominal: Positive for: Normal Exam, Soft. Negative for: Tenderness Back: Positive for: Normal Inspection Extremity: Positive for: Normal ROM. Negative for: Pedal Edema Neurologic/Psych: Positive for: Alert, Oriented (x3), Other (marginal insight, clear speech) - Laboratory Results Result Diagrams: 04/27/17 14:42 04/27/17 14:42 - ECG O2 Sat by Pulse Oximetry: 98 (RA) Pulse Ox Interpretation: Normal Medical Decision Making Medical Decision Making: Time: 14:42 Initial impression: Psych evaluation Initial plan: Alcohol serum level CMP Urine Drug Screening Crisis evaluation remains calm and cooperative in ED Obtained clinical sobriety w clear speech and stable gait Per crisis, clear for DC after d/w Dr Delacruz, followup outpt Tolerated food, wanted to go home. DC from ED. Potassium replaced orally. Scribe Attestation: Documented by Monica Bello, acting as a scribe for Mitch Rivas DO. Provider Scribe Attestation: All medical record entries made by the Scribe were at my direction and personally dictated by me. I have reviewed the chart and agree that the record accurately reflects my personal performance of the history, physical exam, medical decision making, and the department course for this patient. I have also personally directed, reviewed, and agree with the discharge instructions and disposition. Disposition - Clinical Impression Clinical Impression: Alcohol intoxication - Patient ED Disposition Is Patient to be Admitted: No Counseled Patient/Family Regarding: Studies Performed, Diagnosis, Need For Followup, Rx Given - Disposition Disposition: Routine/Home Disposition Time: 15:50 Condition: STABLE Instructions: Alcohol Intoxication (ED) Forms: [employer] (Solomon Islander)
[2017-04-27 15:14] LABS: ALB/GLOB RATIO 1.6 (1.0-2.1); ALCOHOL SERUM 183 mg/dl (0-10); ALKALINE PHOSPHATASE 156 U/L (38-126); ALT/SGPT 59 U/L (21-72); AST/SGOT 51 U/L (17-59); BLOOD UREA NITROGEN 6 mg/dl (9-20); CALCIUM 8.8 mg/dL (8.4-10.2); CARBON DIOXIDE 21 mmol/L (22-30); CHLORIDE 105 mmol/L (98-107); GFR AFRICAN-AMERICAN > 60; GLUCOSE,RANDOM 178 mg/dL (75-110); POTASSIUM 3.1 MMOL/L (3.6-5.0); SODIUM 144 mmol/l (132-148); TOTAL PROTEIN 7.4 G/DL (6.3-8.2)
[2017-04-27] MEDS ORDERED: Potassium Chloride 20 mEq ER Tab PO ONE ×2 (15:24→15:26)
[2017-04-27 16:39] VITALS: PULSE 108
== END 2017-04-27 16:38 | disposition home or self-care (01) ==
LOC: H.ER 13:53
DX: F10.129 Alcohol abuse with intoxication, unspecified (principal); F32.9 Major depressive disorder, single episode, unspecified; E78.00 Pure hypercholesterolemia, unspecified; F20.9 Schizophrenia, unspecified; F31.9 Bipolar disorder, unspecified; F41.9 Anxiety disorder, unspecified; J44.9 Chronic obstructive pulmonary disease, unspecified; K21.9 Gastro-esophageal reflux disease without esophagitis; Z87.19 Personal history of other diseases of the digestive system

== ENCOUNTER 2017-05-05 17:51 | Emergency (ER) | payer OTHER ==
[2017-05-05 17:51] VITALS: BMI 30.9
[2017-05-05 18:03] VITALS: BP 131/74; PULSE 96; RESP 16; TEMP 99; O2SAT 98
[2017-05-05] MEDS ORDERED: Morphine 4 MG/ML VIAL IM STA (18:20)
--- NOTE | 2017-05-05 18:41 | ED PDOC ---
Upper Extremity Pain/Injury Time Seen by Provider: 05/05/17 18:08 Chief Complaint (Nursing): Finger,Hand,&Wrist Chief Complaint (Provider): Finger,Hand,&Wrist History Per: Patient History/Exam Limitations: no limitations Current Symptoms Are (Timing): Still Present Additional Complaint(s): 57 y/o male with past medical history of alcoholism and GI bleed presents for pain in the right hand. Patient reports that he tripped and fell and hurt his right antonio. Denies any further medical complaints. Past Medical History Vital Signs: Last Vital Signs Temp 99.0 F 05/05/17 18:00 Pulse 96 H 05/05/17 18:00 Resp 16 05/05/17 18:00 BP 131/74 05/05/17 18:00 Pulse Ox 98 05/05/17 18:00 - Medical History PMH: Anemia, Anxiety, Asthma, Back Problems, Bipolar Disorder, COPD, Depression , Gastritis (secondary to ETOH), GERD, Hypercholesterolemia, Pancreatitis ( secondary to ETOH), Schizophrenia, Seizures (secondary to ETOH withdrawal), Chronic Pain (low back pain ) Denies: Alzheimer's Disease, Atrial Fibrillation, Bronchitis, Cardia Arrhythmia, CHF, Dementia, Diabetes, Emphysema, Hepatitis, HIV, HTN, Migraine, Mitral Valve Prolapse, Multiple Sclerosis, Parkinson's Disease, Peripheral Edema , Pneumonia, Pulmonary Embolism, Chronic Kidney Disease, Sexually Transmitted Disease, Sleep Apnea - Surgical History Surgical History: Back Surgery Denies: Pacemaker - Family History Family History: States: Diabetes - Social History Current smoker - smoking cessation education provided: Yes (Heavy smoker >10 cigarettes daily) Alcohol: Other (2-3 pts of vodka/day) Drugs: Denies - Immunization History Hx Tetanus Toxoid Vaccination: Yes (As per patient, TDaP uptodate ( about 3 years ago)) Hx Influenza Vaccination: No Hx Pneumococcal Vaccination: No - Home Medications Home Medications: Ambulatory Orders Medication Instructions Recorded Folic Acid 1 mg PO DAILY #30 tab 12/19/16 Thiamine [Vitamin B1 Tab] 100 mg PO DAILY #30 tab 12/19/16 amLODIPine [Norvasc] 10 mg PO DAILY #30 tab 12/19/16 traMADol [Ultram] 50 mg PO Q8 PRN #15 tab 12/27/16 Albuterol HFA [Ventolin HFA 90 1 puff IH [id number] PRN 01/01/17 mcg/actuation (8 g)] Esomeprazole Magnesium [Nexium] 20 mg PO DAILY 01/01/17 M-Vit,Tx,Iron,Mins/Calc/Folic 1 tab PO DAILY 01/01/17 [Thera-M Caplet] Amylase/Lipase/Protease [Pancrease 5,000 unit PO DAILY #30 ecc 01/03/17 61218 U-5000 U-30420 U] Folic Acid 1 mg PO DAILY 30 Days #30 tab 03/31/17 Gabapentin [Neurontin] 100 mg PO TID 90 Days #90 cap 03/31/17 QUEtiapine [SEROquel] 150 mg PO HS 30 Days #90 tab 03/31/17 Sertraline [Zoloft] 100 mg PO DAILY 30 Days #30 tab 03/31/17 Ranitidine HCl [Zantac 75] 75 mg PO BID #14 tablet 04/05/17 Amoxicillin 875 mg PO BID #10 tablet 04/13/17 Ibuprofen [Motrin Tab] 600 mg PO Q6 PRN #10 tab 04/13/17 - Allergies Allergies/Adverse Reactions: Allergies Allergy/AdvReac Type Severity Reaction Status Date / Time No Known Allergies Allergy Verified 04/27/17 13:55 Review of Systems ROS Statement: Except As Marked, All Systems Reviewed And Found Negative (As per HPI, otherwise negative) Musculoskeletal: Positive for: Arm Pain (Right hand pain) Physical Exam - Reviewed Nursing Documentation Reviewed: Yes Vital Signs Reviewed: Yes - Physical Exam Appears: Positive for: Well, Non-toxic, No Acute Distress Head Exam: Positive for: ATRAUMATIC, NORMAL INSPECTION, NORMOCEPHALIC Skin: Positive for: Normal Color, Warm, Dry Eye Exam: Positive for: Normal appearance ENT: Positive for: Normal ENT Inspection Neck: Positive for: Normal Respiratory: Negative for: Respiratory Distress Pulses-Radial (L): 2+ Pulses-Radial (R): 2+ Back: Positive for: Normal Inspection Extremity: Positive for: Tenderness (tenderness and medial deformity at the base of proximal portion of proximal 5th phalange) Neurologic/Psych: Positive for: Alert, Oriented, Gait - ECG O2 Sat by Pulse Oximetry: 98 (RA) Pulse Ox Interpretation: Normal Medical Decision Making Medical Decision Making: Time: 18:20 Plan: Morphine 4mg IM Hand x-ray (+) fracture at the base of the 5th metacarpal. Mild displaced. Fingers kalen taped. Finger in appropriate position. Scribe Attestation: Documented by Kavon Roche acting as a scribe for Elizabeth Carlos MD. Scribe Attestation: All medical record entries made by the Scribe were at my direction and personally dictated by me. I have reviewed the chart and agree that the record accurately reflects my personal performance of the history, physical exam, medical decision making, and the department course for this patient. I have also personally directed, reviewed, and agree with the discharge instructions and disposition. Disposition - Clinical Impression Clinical Impression: Finger fracture - Patient ED Disposition Is Patient to be Admitted: No Counseled Patient/Family Regarding: Diagnosis, Need For Followup, Rx Given - Disposition Referrals: Chana Reed MD [Staff Provider] - Disposition: Routine/Home Disposition Time: 19:08 Condition: GOOD Additional Instructions: Ice, elevation. Tramadol for pain. Keep fingers kalen taped. Follow-up with hand specialist. Instructions: Finger Fracture (ED) Forms: [employer] (Malagasy)
--- NOTE | 2017-05-06 14:34 | RAD ---
PROCEDURE: Right Hand Radiographs. HISTORY: right 5th metacarpal deformity COMPARISON: Comparison made with radiographs right hand 10/30/2012. FINDINGS: BONES: Current study demonstrates comminuted intra-articular fracture base proximal phalanx 5th finger. There is ulnar angulation/ displacement of the distal larger fragment. . There is mild surrounding soft tissue swelling most pronounced dorsally. JOINTS: As above. No significant osteoarthritis seen at this time. SOFT TISSUES: As above. No radiopaque foreign bodies. OTHER FINDINGS: None. IMPRESSION: Comminuted intra-articular fracture base proximal phalanx 5th finger. There is ulnar angulation/ displacement of the larger distal fragment. There is mild surrounding soft tissue swelling, most pronounced dorsally. .
== END 2017-05-05 19:26 | disposition home or self-care (01) ==
LOC: H.ER 17:51
DX: S62.316A Displaced fracture of base of fifth metacarpal bone, right hand, initial encounter for closed fracture (principal); W01.0XXA Fall on same level from slipping, tripping and stumbling without subsequent striking against object, initial encounter; F17.210 Nicotine dependence, cigarettes, uncomplicated; Z86.59 Personal history of other mental and behavioral disorders; J44.9 Chronic obstructive pulmonary disease, unspecified; Z87.19 Personal history of other diseases of the digestive system; K85.90 Acute pancreatitis without necrosis or infection, unspecified
CPT/HCPCS: 29130; 73130; 96372; 99283; J2270

== ENCOUNTER 2017-05-08 20:38 | Emergency (ER) | payer OTHER ==
[2017-05-08 20:38] VITALS: BMI 30.9
[2017-05-08 20:46] VITALS: O2SAT 97
[2017-05-08 21:07] VITALS: RESP 16
[2017-05-08] MEDS ORDERED: Albuterol-Ipratrop 3 mg / 0.5 (3 ml) UD INH STA ×3 (21:23→22:46)
--- NOTE | 2017-05-08 21:32 | ED PDOC ---
HPI: SOB/CHF/COPD Time Seen by Provider: 05/08/17 21:23 Chief Complaint (Nursing): Shortness Of Breath Chief Complaint (Provider): SOB History Per: Patient (57 Y/O MALE H/O ALCOHOL ABUSE HERE FOR SOB NOTED ON AND OFF X 1 MONTH. SEEN 1 MONTH PRIOR WITH NEG FLU/STREP. DENIES ANY FEVERS/ CHILLS.) Past Medical History Reviewed: Historical Data, Nursing Documentation, Vital Signs Vital Signs: Last Vital Signs Temp 98.1 F 05/08/17 20:42 Pulse 94 H 05/08/17 20:42 Resp 16 05/08/17 21:06 BP 136/83 05/08/17 20:42 Pulse Ox 97 05/08/17 21:34 - Medical History PMH: Anemia, Anxiety, Asthma, Back Problems, Bipolar Disorder, COPD, Depression , Gastritis (secondary to ETOH), GERD, Hypercholesterolemia, Pancreatitis ( secondary to ETOH), Schizophrenia, Seizures (secondary to ETOH withdrawal), Chronic Pain (low back pain ) Denies: Alzheimer's Disease, Atrial Fibrillation, Bronchitis, Cardia Arrhythmia, CHF, Dementia, Diabetes, Emphysema, Hepatitis, HIV, HTN, Migraine, Mitral Valve Prolapse, Multiple Sclerosis, Parkinson's Disease, Peripheral Edema , Pneumonia, Pulmonary Embolism, Chronic Kidney Disease, Sexually Transmitted Disease, Sleep Apnea - Surgical History Surgical History: Back Surgery Denies: Pacemaker - Family History Family History: States: Diabetes - Immunization History Hx Tetanus Toxoid Vaccination: Yes (As per patient, TDaP uptodate ( about 3 years ago)) Hx Influenza Vaccination: No Hx Pneumococcal Vaccination: No - Home Medications Home Medications: Ambulatory Orders Medication Instructions Recorded Folic Acid 1 mg PO DAILY #30 tab 12/19/16 Thiamine [Vitamin B1 Tab] 100 mg PO DAILY #30 tab 12/19/16 amLODIPine [Norvasc] 10 mg PO DAILY #30 tab 12/19/16 traMADol [Ultram] 50 mg PO Q8 PRN #15 tab 12/27/16 Albuterol HFA [Ventolin HFA 90 1 puff IH [id number] PRN 01/01/17 mcg/actuation (8 g)] Esomeprazole Magnesium [Nexium] 20 mg PO DAILY 01/01/17 M-Vit,Tx,Iron,Mins/Calc/Folic 1 tab PO DAILY 01/01/17 [Thera-M Caplet] Amylase/Lipase/Protease [Pancrease 5,000 unit PO DAILY #30 ecc 01/03/17 92284 U-5000 U-96063 U] Folic Acid 1 mg PO DAILY 30 Days #30 tab 03/31/17 Gabapentin [Neurontin] 100 mg PO TID 90 Days #90 cap 03/31/17 QUEtiapine [SEROquel] 150 mg PO HS 30 Days #90 tab 03/31/17 Sertraline [Zoloft] 100 mg PO DAILY 30 Days #30 tab 03/31/17 Ranitidine HCl [Zantac 75] 75 mg PO BID #14 tablet 04/05/17 Amoxicillin 875 mg PO BID #10 tablet 04/13/17 Ibuprofen [Motrin Tab] 600 mg PO Q6 PRN #10 tab 04/13/17 traMADol [Ultram] 50 mg PO Q6H PRN #15 tab 05/05/17 Albuterol HFA [Ventolin HFA 90 2 puff IH [id number] PRN #1 inhaler 05/08/17 mcg/actuation (8 g)] Azithromycin [Zithromax] 250 mg PO DAILY #6 tab 05/08/17 predniSONE [predniSONE Tab] 3 tab PO DAILY #12 tab 05/08/17 - Allergies Allergies/Adverse Reactions: Allergies Allergy/AdvReac Type Severity Reaction Status Date / Time No Known Allergies Allergy Verified 05/08/17 20:46 Review of Systems ROS Statement: Except As Marked, All Systems Reviewed And Found Negative ENT: Positive for: Throat Pain Respiratory: Positive for: Cough Physical Exam - Reviewed Nursing Documentation Reviewed: Yes Vital Signs Reviewed: Yes - Physical Exam Appears: Positive for: Well, Non-toxic, No Acute Distress Head Exam: Positive for: ATRAUMATIC, NORMAL INSPECTION, NORMOCEPHALIC Skin: Positive for: Normal Color, Warm, DRY Eye Exam: Positive for: EOMI, Normal appearance, PERRL ENT: Positive for: Normal ENT Inspection Neck: Positive for: Normal, Painless ROM Cardiovascular/Chest: Positive for: Regular Rate, Rhythm Respiratory: Positive for: Normal Breath Sounds, Wheezing Gastrointestinal/Abdominal: Positive for: Normal Exam, Bowel Sounds, Soft Back: Positive for: Normal Inspection Extremity: Positive for: Normal ROM Neurologic/Psych: Positive for: Alert, Oriented - ECG O2 Sat by Pulse Oximetry: 97 - Progress ED Course And Treament: cxr: nad duoneb x 2 doses prednisone 60mg x 1 dose duoneb x 1 dose. Mild rhonchi persisent. Disposition - Clinical Impression Clinical Impression: Alcohol intoxication, Bronchitis - Patient ED Disposition Is Patient to be Admitted: No - Disposition Referrals: [facility] [Outside] Disposition: Routine/Home Disposition Time: 23:49 Condition: FAIR Prescriptions: Albuterol HFA [Ventolin HFA 90 mcg/actuation (8 g)] 2 puff IH [id number] PRN #1 inhaler PRN Reason: Shortness Of Breath Azithromycin [Zithromax] 250 mg PO DAILY #6 tab predniSONE [predniSONE Tab] 3 tab PO DAILY #12 tab Instructions: Acute Bronchitis (ED) Forms: [employer] (Russian)
[2017-05-08] MEDS ORDERED: Albuterol-Ipratrop 3 mg / 0.5 (3 ml) UD ONE ×2 (22:02→23:11)
[2017-05-09 01:51] VITALS: BP 136/84; PULSE 83; TEMP 98.6
--- NOTE | 2017-05-09 08:40 | RAD ---
HISTORY: COUGH COMPARISON: Chest radiographs 04/13/2017. TECHNIQUE: Chest PA and lateral FINDINGS: LUNGS: No active pulmonary disease. PLEURA: No significant pleural effusion identified. No pneumothorax apparent. CARDIOVASCULAR: Normal. OSSEOUS STRUCTURES: No significant abnormalities. VISUALIZED UPPER ABDOMEN: Normal. OTHER FINDINGS: None. IMPRESSION: No interval acute cardiopulmonary disease appreciated.
== END 2017-05-09 01:50 | disposition home or self-care (01) ==
LOC: H.ER 20:38
DX: J40 Bronchitis, not specified as acute or chronic (principal); F10.129 Alcohol abuse with intoxication, unspecified; E78.00 Pure hypercholesterolemia, unspecified; F20.9 Schizophrenia, unspecified; F31.9 Bipolar disorder, unspecified; F41.9 Anxiety disorder, unspecified; J44.9 Chronic obstructive pulmonary disease, unspecified; K21.9 Gastro-esophageal reflux disease without esophagitis; K85.90 Acute pancreatitis without necrosis or infection, unspecified; Z87.19 Personal history of other diseases of the digestive system

== ENCOUNTER 2017-05-12 18:30 | Emergency (ER) | payer OTHER ==
[2017-05-12 18:30] VITALS: BMI 30.9
[2017-05-12 18:34] VITALS: BP 135/82; PULSE 90; RESP 18; TEMP 97.8; O2SAT 97
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
--- NOTE | 2017-05-13 00:09 | ED PDOC ---
- ECG O2 Sat by Pulse Oximetry: 97 Medical Decision Making Medical Decision Making: Endorsed pending head CT and sobriety. 1210 - Clear speech and steady gait. Disposition - Clinical Impression Clinical Impression: Head injury, Alcohol intoxication - POA Present On Arrival: None - Disposition Disposition: Routine/Home Disposition Time: 00:08 Condition: GOOD Instructions: Head Injury (ED) Forms: [employer] ([place] Sudanese)
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
== END 2017-05-13 00:18 | disposition home or self-care (01) ==
LOC: H.ER 18:30
DX: F10.129 Alcohol abuse with intoxication, unspecified (principal); S09.90XA Unspecified injury of head, initial encounter; Y04.0XXA Assault by unarmed brawl or fight, initial encounter; Y92.89 Other specified places as the place of occurrence of the external cause; E78.00 Pure hypercholesterolemia, unspecified; F20.9 Schizophrenia, unspecified; F31.9 Bipolar disorder, unspecified; F41.9 Anxiety disorder, unspecified; J44.9 Chronic obstructive pulmonary disease, unspecified; K21.9 Gastro-esophageal reflux disease without esophagitis; K85.90 Acute pancreatitis without necrosis or infection, unspecified; Z87.19 Personal history of other diseases of the digestive system

== ENCOUNTER 2017-05-16 20:51 | Emergency (ER) | payer OTHER ==
[2017-05-16 20:52] VITALS: BMI 30.9
[2017-05-16 20:58] VITALS: BP 137/93; PULSE 98; RESP 14; TEMP 98; O2SAT 98
--- NOTE | 2017-05-16 21:26 | ED PDOC ---
HPI: Psych/Substance Abuse Time Seen by Provider: 05/16/17 21:15 Chief Complaint (Nursing): Psychiatric Evaluation Chief Complaint (Provider): kem arriaga ED Caveat: Intoxicated History Per: Patient Additional Complaint(s): 57yo M in Ed with hx of intoxication and is stating that he is hearing voices. no other complaints. Past Medical History Reviewed: Historical Data, Nursing Documentation, Vital Signs Vital Signs: Last Vital Signs Temp 98 F 05/16/17 20:54 Pulse 98 H 05/16/17 20:54 Resp 14 05/16/17 20:54 BP 137/93 H 05/16/17 20:54 Pulse Ox 98 05/16/17 20:54 - Medical History PMH: Anemia, Anxiety, Asthma, Back Problems, Bipolar Disorder, COPD, Depression , Gastritis (secondary to ETOH), GERD, Hypercholesterolemia, Pancreatitis ( secondary to ETOH), Schizophrenia, Seizures (secondary to ETOH withdrawal), Chronic Pain (low back pain ) Denies: Alzheimer's Disease, Atrial Fibrillation, Bronchitis, Cardia Arrhythmia, CHF, Dementia, Diabetes, Emphysema, Hepatitis, HIV, HTN, Migraine, Mitral Valve Prolapse, Multiple Sclerosis, Parkinson's Disease, Peripheral Edema , Pneumonia, Pulmonary Embolism, Chronic Kidney Disease, Sexually Transmitted Disease, Sleep Apnea - Surgical History Surgical History: Back Surgery Denies: Pacemaker - Family History Family History: States: Diabetes - Immunization History Hx Tetanus Toxoid Vaccination: Yes (As per patient, TDaP uptodate ( about 3 years ago)) Hx Influenza Vaccination: No Hx Pneumococcal Vaccination: No - Home Medications Home Medications: Ambulatory Orders Medication Instructions Recorded Folic Acid 1 mg PO DAILY #30 tab 12/19/16 Thiamine [Vitamin B1 Tab] 100 mg PO DAILY #30 tab 12/19/16 amLODIPine [Norvasc] 10 mg PO DAILY #30 tab 12/19/16 traMADol [Ultram] 50 mg PO Q8 PRN #15 tab 12/27/16 Albuterol HFA [Ventolin HFA 90 1 puff IH [id number] PRN 01/01/17 mcg/actuation (8 g)] Esomeprazole Magnesium [Nexium] 20 mg PO DAILY 01/01/17 M-Vit,Tx,Iron,Mins/Calc/Folic 1 tab PO DAILY 01/01/17 [Thera-M Caplet] Amylase/Lipase/Protease [Pancrease 5,000 unit PO DAILY #30 ecc 01/03/17 64706 U-5000 [id number] U] Folic Acid 1 mg PO DAILY 30 Days #30 tab 03/31/17 Gabapentin [Neurontin] 100 mg PO TID 90 Days #90 cap 03/31/17 QUEtiapine [SEROquel] 150 mg PO HS 30 Days #90 tab 03/31/17 Sertraline [Zoloft] 100 mg PO DAILY 30 Days #30 tab 03/31/17 Ranitidine HCl [Zantac 75] 75 mg PO BID #14 tablet 04/05/17 Amoxicillin 875 mg PO BID #10 tablet 04/13/17 Ibuprofen [Motrin Tab] 600 mg PO Q6 PRN #10 tab 04/13/17 traMADol [Ultram] 50 mg PO Q6H PRN #15 tab 05/05/17 Albuterol HFA [Ventolin HFA 90 2 puff IH [id number] PRN #1 inhaler 05/08/17 mcg/actuation (8 g)] Azithromycin [Zithromax] 250 mg PO DAILY #6 tab 05/08/17 predniSONE [predniSONE Tab] 3 tab PO DAILY #12 tab 05/08/17 - Allergies Allergies/Adverse Reactions: Allergies Allergy/AdvReac Type Severity Reaction Status Date / Time No Known Allergies Allergy Verified 05/16/17 20:58 Review of Systems ROS Statement: Except As Marked, All Systems Reviewed And Found Negative Physical Exam - Reviewed Nursing Documentation Reviewed: Yes Vital Signs Reviewed: Yes - Physical Exam Appears: Positive for: Non-toxic, No Acute Distress. Negative for: Well ( intoxicated) Skin: Positive for: Normal Color, Warm, DRY Cardiovascular/Chest: Positive for: Regular Rate, Rhythm Respiratory: Positive for: CNT, Normal Breath Sounds Neurologic/Psych: Positive for: Alert, Oriented - ECG O2 Sat by Pulse Oximetry: 98 Medical Decision Making Medical Decision Making: pt unhappy with bed assignment, became verbally aggressive towards staff. pt has stable gait. pt was requesting bed to sleep in. pt left without being seen Disposition - Clinical Impression Clinical Impression: Alcohol intoxication - Patient ED Disposition Is Patient to be Admitted: No - Disposition Disposition: Left W/O Being Seen Disposition Time: 21:29 Condition: STABLE
== END 2017-05-16 21:30 | disposition left against medical advice (07) ==
LOC: H.ER 20:51
DX: F10.129 Alcohol abuse with intoxication, unspecified (principal); E78.00 Pure hypercholesterolemia, unspecified; F20.9 Schizophrenia, unspecified; F31.9 Bipolar disorder, unspecified; F41.9 Anxiety disorder, unspecified

== ENCOUNTER 2017-05-22 19:17 | Emergency (ER) | payer OTHER ==
[2017-05-22 19:17] VITALS: BMI 30.9
[2017-05-22 19:23] VITALS: BP 125/100; PULSE 116; RESP 18; TEMP 98.1; O2SAT 97
--- NOTE | 2017-05-22 19:58 | ED PDOC ---
Upper Extremity Pain/Injury Time Seen by Provider: 05/22/17 19:37 Chief Complaint (Nursing): Finger,Hand,&Wrist Chief Complaint (Provider): Right Hand Injury History Per: Patient History/Exam Limitations: no limitations Onset/Duration Of Symptoms: Hrs Current Symptoms Are (Timing): Still Present Additional Complaint(s): Ryley Torres is a 57 year old male that presents to the ED with a chief complaint of right hand injury. Patient reports that he tripped and fell on the floor and landed on his right hand. Patient does not recall hitting his head. He is concerned that he fractured his hand, as he has done so in the past. Patient unsure of last tetanus. Past Medical History Reviewed: Historical Data, Nursing Documentation, Vital Signs Vital Signs: Last Vital Signs Temp 98.1 F 05/22/17 19:20 Pulse 116 H 05/22/17 19:20 Resp 18 05/22/17 19:20 BP 125/100 H 05/22/17 19:20 Pulse Ox 97 05/22/17 19:20 - Medical History PMH: Anemia, Anxiety, Asthma, Back Problems, Bipolar Disorder, COPD, Depression , Gastritis (secondary to ETOH), GERD, Hypercholesterolemia, Pancreatitis ( secondary to ETOH), Schizophrenia, Seizures (secondary to ETOH withdrawal), Chronic Pain (low back pain ) Denies: Alzheimer's Disease, Atrial Fibrillation, Bronchitis, Cardia Arrhythmia, CHF, Dementia, Diabetes, Emphysema, Hepatitis, HIV, HTN, Migraine, Mitral Valve Prolapse, Multiple Sclerosis, Parkinson's Disease, Peripheral Edema , Pneumonia, Pulmonary Embolism, Chronic Kidney Disease, Sexually Transmitted Disease, Sleep Apnea - Surgical History Surgical History: Back Surgery Denies: Pacemaker - Family History Family History: States: Unknown Family Hx, Diabetes - Immunization History Hx Tetanus Toxoid Vaccination: Yes (As per patient, TDaP uptodate ( about 3 years ago)) Hx Influenza Vaccination: No Hx Pneumococcal Vaccination: No - Home Medications Home Medications: Ambulatory Orders Medication Instructions Recorded Folic Acid 1 mg PO DAILY #30 tab 12/19/16 Thiamine [Vitamin B1 Tab] 100 mg PO DAILY #30 tab 12/19/16 amLODIPine [Norvasc] 10 mg PO DAILY #30 tab 12/19/16 traMADol [Ultram] 50 mg PO Q8 PRN #15 tab 12/27/16 Albuterol HFA [Ventolin HFA 90 1 puff IH [id number] PRN 01/01/17 mcg/actuation (8 g)] Esomeprazole Magnesium [Nexium] 20 mg PO DAILY 01/01/17 M-Vit,Tx,Iron,Mins/Calc/Folic 1 tab PO DAILY 01/01/17 [Thera-M Caplet] Amylase/Lipase/Protease [Pancrease 5,000 unit PO DAILY #30 ecc 01/03/17 33531 U-5000 [id number] U] Folic Acid 1 mg PO DAILY 30 Days #30 tab 03/31/17 Gabapentin [Neurontin] 100 mg PO TID 90 Days #90 cap 03/31/17 QUEtiapine [SEROquel] 150 mg PO HS 30 Days #90 tab 03/31/17 Sertraline [Zoloft] 100 mg PO DAILY 30 Days #30 tab 03/31/17 Ranitidine HCl [Zantac 75] 75 mg PO BID #14 tablet 04/05/17 Amoxicillin 875 mg PO BID #10 tablet 04/13/17 Ibuprofen [Motrin Tab] 600 mg PO Q6 PRN #10 tab 04/13/17 traMADol [Ultram] 50 mg PO Q6H PRN #15 tab 05/05/17 Albuterol HFA [Ventolin HFA 90 2 puff IH [id number] PRN #1 inhaler 05/08/17 mcg/actuation (8 g)] Azithromycin [Zithromax] 250 mg PO DAILY #6 tab 05/08/17 predniSONE [predniSONE Tab] 3 tab PO DAILY #12 tab 05/08/17 - Allergies Allergies/Adverse Reactions: Allergies Allergy/AdvReac Type Severity Reaction Status Date / Time No Known Allergies Allergy Verified 05/16/17 20:58 Review of Systems Musculoskeletal: Positive for: Hand Pain (right hand pain) Physical Exam - Reviewed Nursing Documentation Reviewed: Yes Vital Signs Reviewed: Yes - Physical Exam Appears: Positive for: Non-toxic, No Acute Distress (Patient was sleeping in room prior to exam, appears intoxicated.) Head Exam: Positive for: ATRAUMATIC, NORMOCEPHALIC Skin: Positive for: Normal Color, Warm Eye Exam: Positive for: Normal appearance, EOMI, PERRL Pulses-Radial (L): 2+ Pulses-Radial (R): 2+ Extremity: Positive for: Swelling (Moderate swelling noted to dorsum of right hand. No swelling noted to right elbow.). Negative for: Normal ROM (Decreased ROM right hand due to pain, full ROM right elbow.) Neurologic/Psych: Positive for: Alert, Oriented, Other (Patient has slightly slurred speech.). Negative for: Motor/Sensory Deficits - ECG O2 Sat by Pulse Oximetry: 97 (RA) Pulse Ox Interpretation: Normal - Progress ED Course And Treament: IMPRESSION: 1. No fracture. 2. Pulmonary nodules. For low-risk patients, no follow-up is necessary. For high -risk patients (smoking history or other known risk factors) an optional CT at 12 months could be performed. 3. Incidental/non-acute findings are described above. Thank you for allowing us to participate in the care of your patient. Dictated and Authenticated by: Rashad Esteban MD Medical Decision Making Medical Decision Making: Impression: Right Hand Injury Plan: * CT C-Spine * CT Head * X-Ray Right Wrist * X-Ray Right Hand * Reevaluation Patient's past charts checked, last tetanus vaccination was three years ago. CT Head FINDINGS: Limitations: Motion artifact - mild. Brain: [id number] atrophy. No definite intracranial hemorrhage. No mass. No definite edema. Ventricles: No hydrocephalus. Bones/joints: No acute fracture. Soft tissues: Unremarkable. Sinuses: Scattered minimal to mild mucosal thickening. Small RIGHT frontal retention cyst. Mastoid air cells: No mastoid effusion. Orbits: Unremarkable as visualized. IMPRESSION: 1. No definite intracranial hemorrhage. 2. Incidental/non-acute findings are described above 21:10 X-Ray Right Hand shows fracture in proximal fifth phalanx, minimally displaced. Scribe Attestation: Documented by Mabel Mancera, acting as a scribe for Christine Roche PA-C. Provider Scribe Attestation: All medical record entries made by the Scribe were at my direction and personally dictated by me. I have reviewed the chart and agree that the record accurately reflects my personal performance of the history, physical exam, medical decision making, and the department course for this patient. I have also personally directed, reviewed, and agree with the discharge instructions and disposition. Disposition - Clinical Impression Clinical Impression: Pulmonary nodule, Proximal phalanx fracture of finger - Disposition Referrals: Walt Henry MD [Medical Doctor] - Disposition: Routine/Home Disposition Time: 22:04 Condition: FAIR Instructions: Finger Fracture (ED) Forms: [facility] (Pashto), [facility] ED School/Work Excuse
--- NOTE | 2017-05-22 20:55 | CT ---
EXAM: CT Head Without Intravenous Contrast CLINICAL HISTORY: 57 years old, male; Injury or trauma; Fall; Initial encounter; Blunt trauma (contusions or hematomas); Additional info: Head injury TECHNIQUE: Axial computed tomography images of the head/brain without intravenous contrast. All CT scans at this facility use one or more dose reduction techniques, viz.: automated exposure control; ma/kV adjustment per patient size (including targeted exams where dose is matched to indication; i.e. head); or iterative reconstruction technique. Coronal and sagittal reformatted images were created and reviewed. COMPARISON: CT - HEAD W/O CONTRAST 2017-05-12 21:33 FINDINGS: Limitations: Motion artifact - mild. Brain: [id number] atrophy. No definite intracranial hemorrhage. No mass. No definite edema. Ventricles: No hydrocephalus. Bones/joints: No acute fracture. Soft tissues: Unremarkable. Sinuses: Scattered minimal to mild mucosal thickening. Small RIGHT frontal retention cyst. Mastoid air cells: No mastoid effusion. Orbits: Unremarkable as visualized. IMPRESSION: 1. No definite intracranial hemorrhage. 2. Incidental/non-acute findings are described above.
--- NOTE | 2017-05-22 21:03 | CT ---
EXAM: CT Cervical Spine Without Intravenous Contrast CLINICAL HISTORY: 57 years old, male; Injury or trauma; Fall; Initial encounter; Blunt trauma; Additional info: Fall/head injury/etoh TECHNIQUE: Axial computed tomography images of the cervical spine without intravenous contrast. All CT scans at this facility use one or more dose reduction techniques, viz.: automated exposure control; ma/kV adjustment per patient size (including targeted exams where dose is matched to indication; i.e. head); or iterative reconstruction technique. COMPARISON: CT - CERVICAL SPINE W/O CONTRAST 2015-03-10 14:57 FINDINGS: Limitations: Motion artifact - mild. Vertebrae: No acute fracture. Degenerative retrolithesis of mid cervical spine. Degenerative retrolithesis of lower cervical spine. Discs/spinal canal/neural foramina: Early degenerative disc disease within mid cervical spine. Moderate degenerative disc disease within lower cervical spine. Disc herniations within mid and lower cervical spine, suboptimally evaluated. Mild indentation thecal sac/cord mid cervical spine. Moderate indentation thecal sac/cord lower cervical spine. Neuroforaminal narrowing within lower cervical spine. Soft tissues: Unremarkable. Sinuses: Scattered mild mucosal thickening of visualized sinuses. RIGHT maxillary retention cyst. Lung apices: Few subpleural nodules and/or scarring, up to 0.3 cm. IMPRESSION: 1. No fracture. 2. Pulmonary nodules. For low-risk patients, no follow-up is necessary. For high-risk patients (smoking history or other known risk factors) an optional CT at 12 months could be performed. 3. Incidental/non-acute findings are described above.
--- NOTE | 2017-05-23 09:37 | RAD ---
PROCEDURE: Right Hand Radiographs. HISTORY: HAND INJURY COMPARISON: None. FINDINGS: BONES: There is impacted fracture with dorsal medial angulation of the major fracture fragment at the right small finger proximal phalanx proximal portion which appears to be articular. The fracture is comminuted. An old healed fracture distal 1st metacarpal bone is questioned versus congenital deformity. Diffuse osteopenia suggests osteoporosis JOINTS: No dislocation appreciated. SOFT TISSUES: Edema is seen related to the fracture site at the proximal phalanx right small finger. OTHER FINDINGS: None. IMPRESSION: Articular comminuted fracture proximal segment proximal phalanx right small finger without dislocation. Diffuse osteopenia suggests osteoporosis. 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
--- NOTE | 2017-05-23 09:38 | RAD ---
PROCEDURE: Right Wrist Radiographs. HISTORY: WRIST PAIN COMPARISON: None. FINDINGS: BONES: No acute fracture or destructive bony lesion identified. JOINTS: Normal. No dislocation. SOFT TISSUES: Normal. OTHER FINDINGS: Incidental fracture proximal phalanx right small finger described in separate right hand radiograph 05/22/2017. IMPRESSION: Normal right wrist radiographs. Please see separate right hand 05/22/2017 which includes the report described may be comminuted fracture of the proximal phalanx right small finger.
== END 2017-05-22 22:54 | disposition home or self-care (01) ==
LOC: H.ER 19:17
DX: S62.642A Nondisplaced fracture of proximal phalanx of right middle finger, initial encounter for closed fracture (principal); S09.90XA Unspecified injury of head, initial encounter; W19.XXXA Unspecified fall, initial encounter; Y92.89 Other specified places as the place of occurrence of the external cause; E78.00 Pure hypercholesterolemia, unspecified; F20.9 Schizophrenia, unspecified; F31.9 Bipolar disorder, unspecified; F41.9 Anxiety disorder, unspecified; J44.9 Chronic obstructive pulmonary disease, unspecified; K21.9 Gastro-esophageal reflux disease without esophagitis; K85.90 Acute pancreatitis without necrosis or infection, unspecified; Z87.19 Personal history of other diseases of the digestive system; R91.1 Solitary pulmonary nodule

== ENCOUNTER 2017-05-24 19:12 | Emergency (ER) | payer OTHER ==
[2017-05-24 19:12] VITALS: BMI 30.9
[2017-05-24 19:37] VITALS: BP 159/84; PULSE 104; RESP 16; TEMP 97.6; O2SAT 100
--- NOTE | 2017-05-24 20:29 | ED PDOC ---
Upper Extremity Pain/Injury Time Seen by Provider: 05/24/17 19:52 Chief Complaint (Nursing): Finger,Hand,&Wrist Chief Complaint (Provider): Right hand pain History Per: Patient History/Exam Limitations: no limitations Onset/Duration Of Symptoms: Days Current Symptoms Are (Timing): Still Present Additional Complaint(s): 57 y/o male presents to the emergency department with a complaint of a right hand pain for several days status post hand injury. Patient went to [facility] and had an ulnar gutter splint placed on the right hand. Reports Ibuprofen 800 mg is not helping to relief the pain and is requesting new medication. Patient admits to drinking this morning due to pain. Denies fever or chills. Past Medical History Reviewed: Historical Data, Nursing Documentation, Vital Signs Vital Signs: Last Vital Signs Temp 97.6 F 05/24/17 19:32 Pulse 104 H 05/24/17 19:32 Resp 16 05/24/17 19:32 BP 159/84 H 05/24/17 19:32 Pulse Ox 100 05/24/17 19:32 - Medical History PMH: Anemia, Anxiety, Asthma, Back Problems, Bipolar Disorder, COPD, Depression , Gastritis (secondary to ETOH), GERD, Hypercholesterolemia, Pancreatitis ( secondary to ETOH), Schizophrenia, Seizures (secondary to ETOH withdrawal), Chronic Pain (low back pain ) - Surgical History Surgical History: Back Surgery - Family History Family History: States: No Known Family Hx - Living Arrangements Living Arrangements: Other (non-domiciled) - Social History Alcohol: > 2 Drinks/Day - Immunization History Hx Tetanus Toxoid Vaccination: Yes (As per patient, TDaP uptodate ( about 3 years ago)) Hx Influenza Vaccination: No Hx Pneumococcal Vaccination: No - Home Medications Home Medications: Ambulatory Orders Medication Instructions Recorded Folic Acid 1 mg PO DAILY #30 tab 12/19/16 Thiamine [Vitamin B1 Tab] 100 mg PO DAILY #30 tab 12/19/16 amLODIPine [Norvasc] 10 mg PO DAILY #30 tab 12/19/16 traMADol [Ultram] 50 mg PO Q8 PRN #15 tab 12/27/16 Albuterol HFA [Ventolin HFA 90 1 puff IH [id number] PRN 01/01/17 mcg/actuation (8 g)] Esomeprazole Magnesium [Nexium] 20 mg PO DAILY 01/01/17 M-Vit,Tx,Iron,Mins/Calc/Folic 1 tab PO DAILY 01/01/17 [Thera-M Caplet] Amylase/Lipase/Protease [Pancrease 5,000 unit PO DAILY #30 ecc 01/03/17 43307 U-5000 U-09087 U] Folic Acid 1 mg PO DAILY 30 Days #30 tab 03/31/17 Gabapentin [Neurontin] 100 mg PO TID 90 Days #90 cap 03/31/17 QUEtiapine [SEROquel] 150 mg PO HS 30 Days #90 tab 03/31/17 Sertraline [Zoloft] 100 mg PO DAILY 30 Days #30 tab 03/31/17 Ranitidine HCl [Zantac 75] 75 mg PO BID #14 tablet 04/05/17 Amoxicillin 875 mg PO BID #10 tablet 04/13/17 Ibuprofen [Motrin Tab] 600 mg PO Q6 PRN #10 tab 04/13/17 traMADol [Ultram] 50 mg PO Q6H PRN #15 tab 05/05/17 Albuterol HFA [Ventolin HFA 90 2 puff IH [id number] PRN #1 inhaler 05/08/17 mcg/actuation (8 g)] Azithromycin [Zithromax] 250 mg PO DAILY #6 tab 05/08/17 predniSONE [predniSONE Tab] 3 tab PO DAILY #12 tab 05/08/17 Nabumetone [Relafen] 500 mg PO BID #20 tab 05/24/17 - Allergies Allergies/Adverse Reactions: Allergies Allergy/AdvReac Type Severity Reaction Status Date / Time No Known Allergies Allergy Verified 05/24/17 19:32 Review of Systems ROS Statement: Except As Marked, All Systems Reviewed And Found Negative (As per HPI, otherwise negative) Constitutional: Negative for: Fever, Chills Musculoskeletal: Positive for: Hand Pain (Right) Physical Exam - Reviewed Nursing Documentation Reviewed: Yes Vital Signs Reviewed: Yes - Physical Exam Appears: Positive for: Well, Non-toxic, No Acute Distress Head Exam: Positive for: ATRAUMATIC, NORMAL INSPECTION, NORMOCEPHALIC Skin: Positive for: Normal Color. Negative for: Rash Extremity: Positive for: Other (ulnar gutter splint in place to right hand, N/V intact) Neurologic/Psych: Positive for: Alert, Oriented (x3) - ECG O2 Sat by Pulse Oximetry: 100 (RA) Pulse Ox Interpretation: Normal Medical Decision Making Medical Decision Making: Time: 2026 Initial impression: Right hand pain due to existing fracture Initial plan: --Toradol 30 mg IM --Rx relafen given, patient was advised to stop taking ibuprofen Scribe Attestation: Documented by Veronica Falcon, acting as a scribe for Jeannine Collazo PA-C Provider Scribe Attestation: All medical record entries made by the Scribe were at my direction and personally dictated by me. I have reviewed the chart and agree that the record accurately reflects my personal performance of the history, physical exam, medical decision making, and the department course for this patient. I have also personally directed, reviewed, and agree with the discharge instructions and disposition. Disposition - Clinical Impression Clinical Impression: Hand fracture - Patient ED Disposition Is Patient to be Admitted: No Counseled Patient/Family Regarding: Studies Performed, Diagnosis, Need For Followup, Rx Given - Disposition Referrals: [facility] [Outside] Disposition: Routine/Home Disposition Time: 20:34 Condition: STABLE Additional Instructions: Follow up with clinic at [facility] Prescriptions: Nabumetone [Relafen] 500 mg PO BID #20 tab Instructions: Hand Fracture (ED) Forms: [employer] (Divehi)
== END 2017-05-24 21:12 | disposition home or self-care (01) ==
LOC: H.ER 19:12
DX: M79.641 Pain in right hand (principal); E78.00 Pure hypercholesterolemia, unspecified; F20.9 Schizophrenia, unspecified; F31.9 Bipolar disorder, unspecified; F41.9 Anxiety disorder, unspecified; J44.9 Chronic obstructive pulmonary disease, unspecified; K21.9 Gastro-esophageal reflux disease without esophagitis; K85.90 Acute pancreatitis without necrosis or infection, unspecified; Z87.19 Personal history of other diseases of the digestive system
CPT/HCPCS: 96372; 99282; J1885

== ENCOUNTER 2017-05-26 07:30 | Emergency (ER) | payer OTHER ==
[2017-05-26 07:30] VITALS: BMI 30.9
[2017-05-26 07:35] VITALS: O2SAT 98
--- NOTE | 2017-05-26 08:07 | ED PDOC ---
Upper Extremity Pain/Injury Time Seen by Provider: 05/26/17 07:37 Chief Complaint (Nursing): Finger,Hand,&Wrist Chief Complaint (Provider): Right upper extremity pain History Per: Patient History/Exam Limitations: no limitations Onset/Duration Of Symptoms: Days (x4) Current Symptoms Are (Timing): Still Present Additional Complaint(s): Ryley Torres is a 57 year old male presenting to the ED for an evaluation of right upper extremity pain s/p re-fracture occurring 4 days prior to arrival. The patient states he initially fractured his right upper extremity on May 05, 2017 and was treated here. The patient then recently re-fractured his right upper extremity when falling 4 days prior to arrival. He then went to visit [facility] [place], where he was told he broke his right hand and received a splint placement. The patient was unable to follow up with ortho and currently takes Nabutmetone, without relief. Of note, the patient reports daily alcohol use. PMD: None Provided Past Medical History Reviewed: Historical Data, Nursing Documentation, Vital Signs Vital Signs: Last Vital Signs Temp 98.3 F 05/26/17 07:35 Pulse 114 H 05/26/17 07:35 Resp 20 05/26/17 07:35 BP 146/88 05/26/17 07:35 Pulse Ox 98 05/26/17 07:35 - Medical History PMH: Anemia, Anxiety, Asthma, Back Problems, Bipolar Disorder, COPD, Depression , Gastritis (secondary to ETOH), GERD, Hypercholesterolemia, Pancreatitis ( secondary to ETOH), Schizophrenia, Seizures (secondary to ETOH withdrawal), Chronic Pain (low back pain ) Denies: Alzheimer's Disease, Atrial Fibrillation, Bronchitis, Cardia Arrhythmia, CHF, Dementia, Diabetes, Emphysema, Hepatitis, HIV, HTN, Migraine, Mitral Valve Prolapse, Multiple Sclerosis, Parkinson's Disease, Peripheral Edema , Pneumonia, Pulmonary Embolism, Chronic Kidney Disease, Sexually Transmitted Disease, Sleep Apnea - Surgical History Surgical History: Back Surgery Denies: Pacemaker - Family History Family History: States: Other Other Family History: non-contributory - Immunization History Hx Tetanus Toxoid Vaccination: Yes (As per patient, TDaP uptodate ( about 3 years ago)) Hx Influenza Vaccination: No Hx Pneumococcal Vaccination: No - Home Medications Home Medications: Ambulatory Orders Medication Instructions Recorded LORazepam [Ativan] 1 mg PO Q6 PRN tab 06/01/17 amLODIPine [Norvasc] 5 mg PO DAILY tab 06/01/17 chlordiazePOXIDE [Librium] 50 mg PO Q8 cap 06/01/17 - Allergies Allergies/Adverse Reactions: Allergies Allergy/AdvReac Type Severity Reaction Status Date / Time No Known Allergies Allergy Verified 05/30/17 04:17 Review of Systems Constitutional: Negative for: Fever Respiratory: Negative for: Cough, Shortness of Breath Gastrointestinal: Negative for: Abdominal Pain Musculoskeletal: Positive for: Arm Pain (right upper extremity pain) Neurological: Negative for: Weakness, Numbness, Headache Physical Exam - Reviewed Nursing Documentation Reviewed: Yes Vital Signs Reviewed: Yes - Physical Exam Appears: Positive for: Well, Non-toxic (comfortable) Head Exam: Positive for: ATRAUMATIC, NORMOCEPHALIC Skin: Positive for: Normal Color, Warm, Dry Eye Exam: Positive for: Normal appearance, EOMI Neck: Positive for: Normal Pulses-Radial (L): 2+ Pulses-Radial (R): 2+ Extremity: Positive for: Capillary Refill (<2 seconds), Other (strength intact in both flexor and extensor muscles; compartments soft in fingers and hand of right hand). Negative for: Normal ROM (normal ROM of right upper extremity; ROM decreased of 4th and 5th digit on right hand secondary to pain), Tenderness (to right 4-5th digits), Swelling (no swelling of right wrist; no significant swelling to 4th and 5th digit of right hand) Neurologic/Psych: Positive for: Alert, Oriented (x3), Other (2 pt discrimination intact). Negative for: Motor/Sensory Deficits (sensations intact ) - ECG O2 Sat by Pulse Oximetry: 98 (RA) Pulse Ox Interpretation: Normal Medical Decision Making Medical Decision Making: Time: 07:37 Right Hand X-ray results: FINDINGS: BONES: Comminuted fracture is identified at the base of the proximal phalanx right small digit involving the articular surface at the 5th metacarpal phalangeal joint. No subluxation or dislocation appreciated. Mild local soft tissue edema is identified. SOFT TISSUES: Normal. OTHER FINDINGS: None. IMPRESSION: Comminuted articular fracture proximal phalanx right small digit without dislocation. Scribe Attestation: Documented by Maylin Galo, acting as a scribe for Michael Piper MD. Provider Scribe Attestation: All medical record entries made by the Scribe were at my direction and personally dictated by me. I have reviewed the chart and agree that the record accurately reflects my personal performance of the history, physical exam, medical decision making, and the department course for this patient. I have also personally directed, reviewed, and agree with the discharge instructions and disposition. Disposition - Clinical Impression Clinical Impression: Hand pain, Hand fracture - Disposition Referrals: Walt Henry MD [Medical Doctor] - Disposition: Routine/Home Disposition Time: 08:42 Condition: STABLE Additional Instructions: Please follow up with the hand specialist. If you have insurance difficulties you should follow up in the clinic for referral assistance. Return to the ER for any worsening symptoms or for any other concerns. Forms: [employer] ([place]ian)
--- NOTE | 2017-05-26 08:33 | RAD ---
PROCEDURE: Right Hand Radiographs. HISTORY: fall hand pain- compare to prior COMPARISON: None. FINDINGS: BONES: Comminuted fracture is identified at the base of the proximal phalanx right small digit involving the articular surface at the 5th metacarpal phalangeal joint. No subluxation or dislocation appreciated. Mild local soft tissue edema is identified. SOFT TISSUES: Normal. OTHER FINDINGS: None. IMPRESSION: Comminuted articular fracture proximal phalanx right small digit without dislocation.
[2017-05-26 08:56] VITALS: BP 120/78; PULSE 78; RESP 17; TEMP 97
== END 2017-05-26 08:56 | disposition home or self-care (01) ==
LOC: H.ER 07:30
DX: M79.641 Pain in right hand (principal); S62.91XG Unspecified fracture of right hand, subsequent encounter for fracture with delayed healing; X58.XXXD Exposure to other specified factors, subsequent encounter; Z86.59 Personal history of other mental and behavioral disorders; J44.9 Chronic obstructive pulmonary disease, unspecified
CPT/HCPCS: 29125; 73130; 96372; 99282; J1885

== ENCOUNTER 2017-05-29 10:47 | Emergency (ER) | payer OTHER ==
[2017-05-29 11:05] VITALS: BMI 22.8
[2017-05-29 11:08] VITALS: BP 150/89; PULSE 106; RESP 18; TEMP 97.3; O2SAT 99
--- NOTE | 2017-05-29 11:29 | RAD ---
HISTORY: cough COMPARISON: Chest radiograph dated 05/08/2017. TECHNIQUE: Chest PA and lateral FINDINGS: LUNGS: No active pulmonary disease. PLEURA: No significant pleural effusion identified. No pneumothorax apparent. CARDIOVASCULAR: Normal. OSSEOUS STRUCTURES: No significant abnormalities. VISUALIZED UPPER ABDOMEN: Normal. OTHER FINDINGS: None. IMPRESSION: No active disease.
[2017-05-29 13:27] LABS: BASO # 0.1 K/uL (0.0-0.2); EOS % 0.2 % (0.0-4.0); HEMOGLOBIN 15.5 g/dL (12.0-18.0); LYMPH % 25.6 % (20.0-40.0); MEAN CELL VOLUME 92.8 fl (80.0-94.0); MEAN CORPUSCULAR HEMOGLOBIN 31.1 pg (27.0-31.0); MEAN CORPUSCULAR HGB CONC 33.5 g/dL (33.0-37.0); MEAN PLATELET VOLUME 7.5 fl (7.2-11.7); MONO # 0.6 K/uL (0.0-0.8); MONO % 7.5 % (0.0-10.0); NEUT % 65.7 % (50.0-75.0); NRBC % 0.3 % (0.0-0.0); RBC 4.99 Mil/uL (4.40-5.90); RED CELL DISTRIBUTION WIDTH 14.6 % (11.5-14.5); WHITE BLOOD COUNT 7.7 K/uL (4.8-10.8)
[2017-05-29 13:39] LABS: ALB/GLOB RATIO 1.4 (1.0-2.1); ALBUMIN 4.7 g/dL (3.5-5.0); ALT/SGPT 82 U/L (21-72); AST/SGOT 149 U/L (17-59); BLOOD UREA NITROGEN 8 mg/dl (9-20); CALCIUM 9.2 mg/dL (8.4-10.2); GFR AFRICAN-AMERICAN > 60; GFR NON-AFRICAN AMERICAN > 60
--- NOTE | 2017-05-29 14:12 | ED PDOC ---
HPI: CCC, URI, Sore Throat Time Seen by Provider: 05/29/17 10:58 Chief Complaint (Nursing): Chest Pain Chief Complaint (Provider): Cough, chest pain when coughing History Per: Patient History/Exam Limitations: no limitations Onset/Duration Of Symptoms: Days Current Symptoms Are (Timing): Still Present Additional Complaint(s): Pt reports co[facility] monett for 4 days which chest pain only when coughing. No fever/ chills. No SOB Past Medical History Reviewed: Historical Data, Nursing Documentation, Vital Signs Vital Signs: Last Vital Signs Temp 97.3 F L 05/29/17 11:08 Pulse 106 H 05/29/17 11:08 Resp 18 05/29/17 11:08 BP 150/89 05/29/17 11:08 Pulse Ox 99 05/29/17 11:08 - Medical History PMH: Anemia, Anxiety, Asthma, Back Problems, Bipolar Disorder, COPD, Depression , Gastritis (secondary to ETOH), GERD, Hypercholesterolemia, Pancreatitis ( secondary to ETOH), Schizophrenia, Seizures (secondary to ETOH withdrawal), Chronic Pain (low back pain ) Denies: Alzheimer's Disease, Atrial Fibrillation, Bronchitis, Cardia Arrhythmia, CHF, Dementia, Diabetes, Emphysema, Hepatitis, HIV, HTN, Migraine, Mitral Valve Prolapse, Multiple Sclerosis, Parkinson's Disease, Peripheral Edema , Pneumonia, Pulmonary Embolism, Chronic Kidney Disease, Sexually Transmitted Disease, Sleep Apnea - Surgical History Surgical History: Back Surgery Denies: Pacemaker - Family History Family History: States: Unknown Family Hx, Diabetes - Living Arrangements Living Arrangements: With Family - Social History Current smoker - smoking cessation education provided: Yes - Immunization History Hx Tetanus Toxoid Vaccination: Yes (As per patient, TDaP uptodate ( about 3 years ago)) Hx Influenza Vaccination: No Hx Pneumococcal Vaccination: No - Home Medications Home Medications: Ambulatory Orders Medication Instructions Recorded Folic Acid 1 mg PO DAILY #30 tab 12/19/16 Thiamine [Vitamin B1 Tab] 100 mg PO DAILY #30 tab 12/19/16 amLODIPine [Norvasc] 10 mg PO DAILY #30 tab 12/19/16 traMADol [Ultram] 50 mg PO Q8 PRN #15 tab 12/27/16 Albuterol HFA [Ventolin HFA 90 1 puff IH [id number] PRN 01/01/17 mcg/actuation (8 g)] Esomeprazole Magnesium [Nexium] 20 mg PO DAILY 01/01/17 M-Vit,Tx,Iron,Mins/Calc/Folic 1 tab PO DAILY 01/01/17 [Thera-M Caplet] Amylase/Lipase/Protease [Pancrease 5,000 unit PO DAILY #30 ecc 01/03/17 08852 U-5000 [id number] U] Folic Acid 1 mg PO DAILY 30 Days #30 tab 03/31/17 Gabapentin [Neurontin] 100 mg PO TID 90 Days #90 cap 03/31/17 QUEtiapine [SEROquel] 150 mg PO HS 30 Days #90 tab 03/31/17 Sertraline [Zoloft] 100 mg PO DAILY 30 Days #30 tab 03/31/17 Ranitidine HCl [Zantac 75] 75 mg PO BID #14 tablet 04/05/17 Amoxicillin 875 mg PO BID #10 tablet 04/13/17 Ibuprofen [Motrin Tab] 600 mg PO Q6 PRN #10 tab 04/13/17 traMADol [Ultram] 50 mg PO Q6H PRN #15 tab 05/05/17 Albuterol HFA [Ventolin HFA 90 2 puff IH [id number] PRN #1 inhaler 05/08/17 mcg/actuation (8 g)] Azithromycin [Zithromax] 250 mg PO DAILY #6 tab 05/08/17 predniSONE [predniSONE Tab] 3 tab PO DAILY #12 tab 05/08/17 Nabumetone [Relafen] 500 mg PO BID #20 tab 05/24/17 Acetaminophen [Pain Reliever] 650 mg PO Q4H PRN #20 tablet 05/26/17 Azithromycin [Zithromax] 250 mg PO DAILY #6 tab 05/29/17 - Allergies Allergies/Adverse Reactions: Allergies Allergy/AdvReac Type Severity Reaction Status Date / Time No Known Allergies Allergy Verified 05/26/17 07:37 Review of Systems ROS Statement: Except As Marked, All Systems Reviewed And Found Negative Constitutional: Negative for: Fever, Chills Cardiovascular: Positive for: Chest Pain Respiratory: Positive for: Cough. Negative for: Shortness of Breath Physical Exam - Reviewed Nursing Documentation Reviewed: Yes Vital Signs Reviewed: Yes - Physical Exam Appears: Positive for: Well, Non-toxic, No Acute Distress Head Exam: Positive for: ATRAUMATIC, NORMAL INSPECTION, NORMOCEPHALIC Skin: Positive for: Normal Color, Warm, DRY Eye Exam: Positive for: Normal appearance ENT: Positive for: Normal ENT Inspection Neck: Positive for: Normal, Painless ROM Cardiovascular/Chest: Positive for: Regular Rate, Rhythm Respiratory: Positive for: Normal Breath Sounds. Negative for: Accessory Muscle Use, Respiratory Distress Back: Positive for: Normal Inspection Extremity: Positive for: Normal ROM Neurologic/Psych: Positive for: Alert, Oriented - Laboratory Results Result Diagrams: 05/29/17 13:10 05/29/17 13:10 - ECG O2 Sat by Pulse Oximetry: 99 Medical Decision Making Medical Decision Makin - Pt requesting food. Disposition - Clinical Impression Clinical Impression: Upper respiratory infection - Patient ED Disposition Is Patient to be Admitted: No Counseled Patient/Family Regarding: Diagnosis, Need For Followup, Rx Given - Disposition Disposition: Routine/Home Disposition Time: 14:07 Condition: GOOD Prescriptions: Azithromycin [Zithromax] 250 mg PO DAILY #6 tab Instructions: Upper Respiratory Infection (ED)
--- NOTE | 2017-05-30 08:10 | CARD ---
APPROVED REPORT EKG Measurement Heart [id number] <Conclusion> Sinus tachycardia Possible Left atrial enlargement Left anterior fascicular block Abnormal ECG
== END 2017-05-29 14:47 | disposition home or self-care (01) ==
LOC: H.ER 10:47
DX: J06.9 Acute upper respiratory infection, unspecified (principal); E78.00 Pure hypercholesterolemia, unspecified; F17.200 Nicotine dependence, unspecified, uncomplicated; F20.9 Schizophrenia, unspecified; F31.9 Bipolar disorder, unspecified; F41.9 Anxiety disorder, unspecified; J44.9 Chronic obstructive pulmonary disease, unspecified; K21.9 Gastro-esophageal reflux disease without esophagitis; K85.90 Acute pancreatitis without necrosis or infection, unspecified; Z87.19 Personal history of other diseases of the digestive system

== ENCOUNTER 2017-05-30 03:55 | Inpatient (IN) | payer OTHER ==
[2017-05-30 04:17] VITALS: BMI 29.9
--- NOTE | 2017-05-30 05:03 | ED PDOC ---
HPI: Chest Pain Time Seen by Provider: 05/30/17 04:00 Chief Complaint (Nursing): Chest Pain Chief Complaint (Provider): Chest Pain History Per: Patient History/Exam Limitations: no limitations Onset/Duration Of Symptoms: Days Current Symptoms Are (Timing): Still Present Additional Complaint(s): Ryley Torres is a 57 year old male, with a past medical history of hepatitis, gastritis, schizophrenia, bipolar disorder, substance abuse and COPD, who presents to the emergency department complaining a reproducible left sided chest pain onset for x1 day. Patient is well known in the ER for frequent visits for chest pain, ETOH and crisis evaluation. He denies any other medical complaints. PMD: None provided Past Medical History Reviewed: Historical Data, Nursing Documentation, Vital Signs Vital Signs: Last Vital Signs Temp 98.9 F 05/30/17 04:17 Pulse 136 H 05/30/17 06:23 Resp 18 05/30/17 06:23 BP 133/86 05/30/17 06:23 Pulse Ox 100 05/30/17 06:42 - Medical History PMH: Anemia, Anxiety, Asthma, Back Problems, Bipolar Disorder, COPD, Depression , Gastritis (secondary to ETOH), GERD, Hypercholesterolemia, Pancreatitis ( secondary to ETOH), Schizophrenia, Seizures (secondary to ETOH withdrawal), Chronic Pain (low back pain ) Denies: Alzheimer's Disease, Atrial Fibrillation, Bronchitis, Cardia Arrhythmia, CHF, Dementia, Diabetes, Emphysema, Hepatitis, HIV, HTN, Migraine, Mitral Valve Prolapse, Multiple Sclerosis, Parkinson's Disease, Peripheral Edema , Pneumonia, Pulmonary Embolism, Chronic Kidney Disease, Sexually Transmitted Disease, Sleep Apnea - Surgical History Surgical History: Back Surgery Denies: Pacemaker - Family History Family History: States: Unknown Family Hx, Diabetes - Social History Current smoker - smoking cessation education provided: Yes (Heavy smoker >10 cigarettes daily) Alcohol: > 2 Drinks/Day Drugs: Denies - Immunization History Hx Tetanus Toxoid Vaccination: Yes (As per patient, TDaP uptodate ( about 3 years ago)) Hx Influenza Vaccination: No Hx Pneumococcal Vaccination: No - Home Medications Home Medications: Ambulatory Orders Medication Instructions Recorded Folic Acid 1 mg PO DAILY #30 tab 12/19/16 Thiamine [Vitamin B1 Tab] 100 mg PO DAILY #30 tab 12/19/16 amLODIPine [Norvasc] 10 mg PO DAILY #30 tab 12/19/16 traMADol [Ultram] 50 mg PO Q8 PRN #15 tab 12/27/16 Albuterol HFA [Ventolin HFA 90 1 puff IH [id number] PRN 01/01/17 mcg/actuation (8 g)] Esomeprazole Magnesium [Nexium] 20 mg PO DAILY 01/01/17 M-Vit,Tx,Iron,Mins/Calc/Folic 1 tab PO DAILY 01/01/17 [Thera-M Caplet] Amylase/Lipase/Protease [Pancrease 5,000 unit PO DAILY #30 ecc 01/03/17 19941 U-5000 [id number] U] Folic Acid 1 mg PO DAILY 30 Days #30 tab 03/31/17 Gabapentin [Neurontin] 100 mg PO TID 90 Days #90 cap 03/31/17 QUEtiapine [SEROquel] 150 mg PO HS 30 Days #90 tab 03/31/17 Sertraline [Zoloft] 100 mg PO DAILY 30 Days #30 tab 03/31/17 Ranitidine HCl [Zantac 75] 75 mg PO BID #14 tablet 04/05/17 Amoxicillin 875 mg PO BID #10 tablet 04/13/17 Ibuprofen [Motrin Tab] 600 mg PO Q6 PRN #10 tab 04/13/17 traMADol [Ultram] 50 mg PO Q6H PRN #15 tab 05/05/17 Albuterol HFA [Ventolin HFA 90 2 puff IH [id number] PRN #1 inhaler 05/08/17 mcg/actuation (8 g)] Azithromycin [Zithromax] 250 mg PO DAILY #6 tab 05/08/17 predniSONE [predniSONE Tab] 3 tab PO DAILY #12 tab 05/08/17 Nabumetone [Relafen] 500 mg PO BID #20 tab 05/24/17 Acetaminophen [Pain Reliever] 650 mg PO Q4H PRN #20 tablet 05/26/17 Azithromycin [Zithromax] 250 mg PO DAILY #6 tab 05/29/17 - Allergies Allergies/Adverse Reactions: Allergies Allergy/AdvReac Type Severity Reaction Status Date / Time No Known Allergies Allergy Verified 05/30/17 04:17 Review of Systems ROS Statement: Except As Marked, All Systems Reviewed And Found Negative Cardiovascular: Positive for: Chest Pain (reproducible left sided ) Physical Exam - Reviewed Nursing Documentation Reviewed: Yes Vital Signs Reviewed: Yes - Physical Exam Head Exam: Positive for: ATRAUMATIC, NORMAL INSPECTION Skin: Positive for: Normal Color, Warm, Dry Eye Exam: Positive for: Normal appearance, EOMI, PERRL Neck: Positive for: Normal, Painless ROM, Supple Cardiovascular/Chest: Positive for: Regular Rate, Rhythm, Other (reproducible left sided chest pain). Negative for: Murmur Respiratory: Positive for: Normal Breath Sounds. Negative for: Respiratory Distress Gastrointestinal/Abdominal: Positive for: Normal Exam, Soft. Negative for: Tenderness Extremity: Positive for: Normal ROM. Negative for: Pedal Edema, Deformity, Swelling Neurologic/Psych: Positive for: Alert, Oriented (x3). Negative for: Motor/ Sensory Deficits - Laboratory Results Result Diagrams: 05/30/17 05:01 05/30/17 05:01 - ECG O2 Sat by Pulse Oximetry: 100 (RA) Pulse Ox Interpretation: Normal Medical Decision Making Medical Decision Making: Initial impression: Chest pain Initial Plan: --Comp Metabolic Panel --Troponin I --CBC w/ differential --Chest portable [RAD] --Toradol 30 mg IV --reevaluation --patient had an abnormal ekg in triage. EKGs were repeated. 06:25 --Patient vomiting and complaining of bilateral leg pain. Potassium is low, gave him Zofran and IV potassium. Patient will be admitted [facility] for chest pain and vomiting. resident made aware. Scribe Attestation: Documented by Rodolfo Parsons, acting as a scribe for Denae Chun MD Provider Scribe Attestation: All medical record entries made by the Scribe were at my direction and personally dictated by me. I have reviewed the chart and agree that the record accurately reflects my personal performance of the history, physical exam, medical decision making, and the department course for this patient. I have also personally directed, reviewed, and agree with the discharge instructions and disposition. Disposition - Clinical Impression Clinical Impression: Chest pain - Patient ED Disposition Is Patient to be Admitted: Yes - Disposition Disposition Time: 05:35 Condition: STABLE
[2017-05-30 05:06] LABS: BASO # 0.1 K/uL (0.0-0.2); BASO % 0.9 % (0.0-2.0); EOS % 0.2 % (0.0-4.0); HEMOGLOBIN 15.3 g/dL (12.0-18.0); LYMPH # 1.2 K/uL (1.0-4.3); LYMPH % 14.5 % (20.0-40.0); MEAN CELL VOLUME 92.6 fl (80.0-94.0); MEAN CORPUSCULAR HEMOGLOBIN 30.8 pg (27.0-31.0); MEAN CORPUSCULAR HGB CONC 33.3 g/dL (33.0-37.0); MONO # 0.4 K/uL (0.0-0.8); MONO % 4.3 % (0.0-10.0); NEUT # 6.7 K/uL (1.8-7.0); NEUT % 80.1 % (50.0-75.0); RBC 4.95 Mil/uL (4.40-5.90); RED CELL DISTRIBUTION WIDTH 14.5 % (11.5-14.5); WHITE BLOOD COUNT 8.4 K/uL (4.8-10.8)
[2017-05-30 05:18] LABS: ALB/GLOB RATIO 1.5 (1.0-2.1); ALBUMIN 4.9 g/dL (3.5-5.0); ALT/SGPT 98 U/L (21-72); AST/SGOT 179 U/L (17-59); BLOOD UREA NITROGEN 8 mg/dl (9-20); CALCIUM 8.8 mg/dL (8.4-10.2); GFR AFRICAN-AMERICAN > 60; GFR NON-AFRICAN AMERICAN > 60
[2017-05-30] MEDS ORDERED: Potassium Chloride 20 mEq ER Tab PO ONE ×2 (06:02→06:23)
[2017-05-30] MEDS ORDERED: Potassium CL 10mEq/100ml 100 ML IVPB ONE (06:25)
[2017-05-30] MEDS ORDERED: Potassium CL 10 MEQ/50 ML 50 ML ONE (06:27)
[2017-05-30] MEDS ORDERED: Potassium CL 10 MEQ/50 ML 50 ML IVPB ONE (06:45)
[2017-05-30] MEDS ORDERED: KCL 40MEQ/NS 1L 1,000 ML IV SCH (08:00)
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
[2017-05-30] MEDS ORDERED: Magnesium Chloride 64 mg ER Tab PO SCH (09:00)
[2017-05-30 09:18] LABS: BARBITURATES, UR NEGATIVE (NEGATIVE); BENZODIAZEPINES, UR NEGATIVE (NEGATIVE); OPIATES, UR NEGATIVE (NEGATIVE); PHENCYCLIDINE, UR NEGATIVE (NEGATIVE)
[2017-05-30] MEDS ORDERED: Multivitamin (MVI) 10 ML, Thiamine 100 MG in Dextrose 5%/0.45% NS 1,000 ML IV ONE ×3 (10:51→15:30)
--- NOTE | 2017-05-30 10:54 | RAD ---
HISTORY: chest pain COMPARISON: 05/29/2017 FINDINGS: LUNGS: No active pulmonary disease. PLEURA: No significant pleural effusion identified, no pneumothorax apparent. CARDIOVASCULAR: Normal. OSSEOUS STRUCTURES: No significant abnormalities. VISUALIZED UPPER ABDOMEN: Normal. OTHER FINDINGS: None. IMPRESSION: No active disease.
[2017-05-30 10:55] LABS: MAGNESIUM 1.2 MG/DL (1.6-2.3)
[2017-05-30 11:05] LABS: B-TYPE NATRIURETIC PEPTIDE 24.9 pg/ml (0-900)
[2017-05-30] MEDS: Sodium Chloride 0.9% 1,000 ML IV SCH ×2 (12:36→13:52)
--- NOTE | 2017-05-30 12:47 | RAD ---
PROCEDURE: Left ribs HISTORY: rib pain, fall COMPARISON: Not available TECHNIQUE: Multiple views of the left ribs FINDINGS: No evidence of left rib fracture. No lytic or blastic osseous lesion. IMPRESSION: No evidence of left rib fracture.
--- NOTE | 2017-05-30 12:56 | CARD ---
APPROVED REPORT EXAM: Two-dimensional and M-mode echocardiogram with Doppler and color Doppler. Other Information Quality : GoodRhythm : NSR INDICATION Chest Pain 2D DIMENSIONS IVSd1.23 (0.7-1.1cm)LVDd4.60 (3.9-5.9cm) LVOT Diameter2.09 (1.8-2.4cm)PWd0.91 (0.7-1.1cm) IVSs1.37 (0.8-1.2cm)LVDs3.68 (2.5-4.0cm) FS (%) 20.0 %PWs1.20 (0.8-1.2cm) M-Mode DIMENSIONS Left Atrium (MM)3.41 (2.5-4.0cm)IVSd1.12 (0.7-1.1cm) Aortic Root3.62 (2.2-3.7cm)LVDd5.06 (4.0-5.6cm) Aortic Cusp Exc.2.32 (1.5-2.0cm)PWd1.18 (0.7-1.1cm) IVSs2.00 cmFS (%) 44 % LVDs2.85 (2.0-3.8cm)PWs1.47 cm Mitral Valve MV E Mmbvnpyp69.3cm/sMV DECEL [id number] A Orbarysc60.1cm/s MV KFS28mjW/A ratio0.7MVA (PHT)4.58cm2 TDI Lateral E' Peak V15.32cm/sMedial E' Peak V9.04cm/sE/Lateral E'3.4 E/Medial E'5.8 Pulmonary Valve PV Peak Ycpmaoen301.4cm/s LEFT VENTRICLE The left ventricle is normal size. There is normal left ventricular wall thickness. Left ventricle systolic function is normal. The Ejection Fraction is 65-70%. There is normal LV segmental wall motion. Transmitral Doppler flow pattern is Grade I-abnormal relaxation pattern. RIGHT VENTRICLE The right ventricle is normal size. There is normal right ventricular wall thickness. The right ventricular systolic function is normal. ATRIA The left atrium size is normal. The right atrium size is normal. AORTIC VALVE The aortic valve is normal in structure. No aortic regurgitation is present. There is no aortic valvular stenosis. MITRAL VALVE The mitral valve is normal in structure. There is no evidence of mitral valve prolapse. There is no mitral valve stenosis. There is no mitral valve regurgitation noted. TRICUSPID VALVE The tricuspid valve is normal in structure. There is no tricuspid valve regurgitation noted. PULMONIC VALVE The pulmonary valve is normal in structure. There is no pulmonic valvular regurgitation. GREAT VESSELS The aortic root is normal in size. The IVC was not visualized. PERICARDIAL EFFUSION The pericardium appears normal. <Conclusion> The left ventricle is normal size. There is normal left ventricular wall thickness. There is normal LV segmental wall motion. Left ventricle systolic function is normal. The Ejection Fraction is 65-70%. Transmitral Doppler flow pattern is Grade I-abnormal relaxation pattern.
--- NOTE | 2017-05-30 15:53 | CP.PCM.CON ---
History of Present Illness - History of Present Illness History of Present Illness: pt with previous psychiatric diagnosis of alcohol use disorder and depression, with multiple inpatient psychiatric hospitalizations , history of non compliance with treatment , pt presented to ER with abdominal and chest pain pt on evaluation reported feeling increasingly depressed and having passive suicidal ideations without aplan, reported having aconflict with a friend and using unspecified amount of alcohol, reported low energy anhedonia, non command auditory hallucinations , denied homicidal ideations Past Patient History - Infectious Disease Hx of Infectious Diseases: None - Tetanus Immunizations Tetanus Immunization: Unknown - Past Medical History & Family History Past Medical History?: Yes - Past Social History Alcohol: > 2 Drinks/Day Drugs: Denies - CARDIAC Hx Atrial Fibrillation: No Hx Cardia Arrhythmia: No Hx Congestive Heart Failure: No Hx Hypercholesterolemia: Yes Hx Hypertension: No Hx Mitral Valve Prolapse: No Hx Pacemaker: No Hx Peripheral Edema: No - PULMONARY Hx Asthma: Yes Hx Bronchitis: No Hx Chronic Obstructive Pulmonary Disease (COPD): Yes Hx Emphysema: No Hx Pneumonia: No Hx Pulmonary Embolism: No Hx Sleep Apnea: No - NEUROLOGICAL Hx Alzheimer's Disease: No Hx Dementia: No Hx Migraine: No Hx Multiple Sclerosis: No Hx Parkinson's Disease: No Hx Seizures: Yes (secondary to ETOH withdrawal) - HEENT Hx HEENT Problems: No - RENAL Hx Chronic Kidney Disease: No - ENDOCRINE/METABOLIC Hx Endocrine Disorders: No - HEMATOLOGICAL/ONCOLOGICAL Hx Anemia: Yes Hx Human Immunodeficiency Virus (HIV): No - INTEGUMENTARY Hx Dermatological Problems: No - MUSCULOSKELETAL/RHEUMATOLOGICAL Hx Musculoskeletal Disorders: Yes - GASTROINTESTINAL Hx Gastritis: Yes (secondary to ETOH) Hx Pancreatitis: Yes (secondary to ETOH) - GENITOURINARY/GYNECOLOGICAL Hx Sexually Transmitted Disorders: No - PSYCHIATRIC Hx Anxiety: Yes Hx Bipolar Disorder: Yes Hx Depression: Yes Hx Schizophrenia: Yes - SURGICAL HISTORY Hx Surgeries: Yes - ANESTHESIA Hx Anesthesia: Yes Hx Anesthesia Reactions: No Hx Malignant Hyperthermia: No Meds Allergies/Adverse Reactions: Allergies Allergy/AdvReac Type Severity Reaction Status Date / Time No Known Allergies Allergy Verified 05/30/17 04:17 - Medications Medications: Current Medications Chlordiazepoxide (Librium) 50 mg PO Q8 [facility] Last Admin: 05/30/17 09:44 Dose: 50 mg Lorazepam (Ativan) 1 mg PO Q6 PRN PRN Reason: Agitation Ondansetron HCl (Zofran Inj) 4 mg IVP Q4 PRN PRN Reason: Nausea/Vomiting Physical Exam - Psychiatric Exam Additional comments: pt on evaluation cooperative, good eye contact, depressed mood and affect, speech soft and slow thought form circumstantial, reported non command auditory hallucinations, reported passive suicidal ideations without a plan, alert awake oriented to person and place, poor insiand judgement Results - Vital Signs Recent Vital Signs: Last Vital Signs Temp 98.4 F 05/30/17 11:00 Pulse 99 H 05/30/17 11:00 Resp 20 05/30/17 11:00 BP 147/97 H 05/30/17 11:00 Pulse Ox 99 05/30/17 11:00 - Labs Result Diagrams: 05/30/17 05:01 05/30/17 05:01 Labs: Laboratory Results - last 24 hr 05/30/17 05/30/17 05/30/17 05:01 05:01 08:40 WBC 8.4 RBC 4.95 Hgb 15.3 Hct 45.8 MCV 92.6 MCH 30.8 MCHC 33.3 RDW 14.5 Plt Count 199 MPV 8.0 Neut % (Auto) 80.1 H Lymph % (Auto) 14.5 L [place] % (Auto) 4.3 Eos % (Auto) 0.2 Baso % (Auto) 0.9 Neut # 6.7 Lymph # 1.2 [place] # 0.4 Eos # 0.0 Baso # 0.1 Sodium 135 Potassium 3.2 L Chloride 98 Carbon Dioxide 19 L Anion Gap 21 H BUN 8 L Creatinine 0.7 L Est GFR ( Amer) > 60 Est GFR (Non-Af Amer) > 60 Random Glucose 182 H Calcium 8.8 Magnesium Total Bilirubin 0.6 AST 179 H D ALT 98 H Alkaline Phosphatase 214 H Troponin I < 0.0120 NT-Pro-B Natriuret Pep Total Protein 8.1 Albumin 4.9 Globulin 3.2 Albumin/Globulin Ratio 1.5 Lipase Urine Opiates Screen Negative Urine Methadone Screen Negative Ur Barbiturates Screen Negative Ur Phencyclidine Scrn Negative Ur Amphetamines Screen Negative U Benzodiazepines Scrn Negative U Oth Cocaine Metabols Negative U Cannabinoids Screen Negative Alcohol, Quantitative BBK History Checked 05/30/17 05/30/17 05/30/17 10:40 12:25 12:50 WBC RBC Hgb Hct MCV MCH MCHC RDW Plt Count MPV Neut % (Auto) Lymph % (Auto) [place] % (Auto) Eos % (Auto) Baso % (Auto) Neut # Lymph # [place] # Eos # Baso # Sodium Potassium Chloride Carbon Dioxide Anion Gap BUN Creatinine Est GFR ( Amer) Est GFR (Non-Af Amer) Random Glucose Calcium Magnesium 1.2 L Total Bilirubin AST ALT Alkaline Phosphatase Troponin I < 0.0120 NT-Pro-B Natriuret Pep 24.9 Total Protein Albumin Globulin Albumin/Globulin Ratio Lipase 486 H Urine Opiates Screen Urine Methadone Screen Ur Barbiturates Screen Ur Phencyclidine Scrn Ur Amphetamines Screen U Benzodiazepines Scrn U Oth Cocaine Metabols U Cannabinoids Screen Alcohol, Quantitative 71 H BBK History Checked 05/30/17 14:50 WBC RBC Hgb Hct MCV MCH MCHC RDW Plt Count MPV Neut % (Auto) Lymph % (Auto) [place] % (Auto) Eos % (Auto) Baso % (Auto) Neut # Lymph # [place] # Eos # Baso # Sodium Potassium Chloride Carbon Dioxide Anion Gap BUN Creatinine Est GFR ( Amer) Est GFR (Non-Af Amer) Random Glucose Calcium Magnesium Total Bilirubin AST ALT Alkaline Phosphatase Troponin I NT-Pro-B Natriuret Pep Total Protein Albumin Globulin Albumin/Globulin Ratio Lipase Urine Opiates Screen Urine Methadone Screen Ur Barbiturates Screen Ur Phencyclidine Scrn Ur Amphetamines Screen U Benzodiazepines Scrn U Oth Cocaine Metabols U Cannabinoids Screen Alcohol, Quantitative BBK History Checked Patient has bt Assessment & Plan - Assessment and Plan (Free Text) Assessment: alcohol induced mood disorder with depressive features alcohol use disorder major depression Plan: recommend ativan prn for symptoms and signs of alcohol withdrawal neurontin 100 mg tid for anxiety on medical clearence pt would benifit from voluntary admission to psychiatry for further stabilization - Date & Time Date: 05/30/17 Time: 15:52
[2017-05-30] MEDS ORDERED: THIAMINE IV SCH (18:45)
[2017-05-30] MEDS ORDERED: [UNRECOGNIZED DRUG - OTHER] IV SCH (18:45)
[2017-05-30] MEDS ORDERED: MULTIVITAMIN IV SCH (18:45)
[2017-05-30] MEDS ORDERED: DEXTROSE IV SCH (18:45)
--- NOTE | 2017-05-30 21:23 | CP.PCM.PCO ---
Physician Communication Note - Physician Communication Note Physician Communication Note: Paged for patient requesting food, states he is "starving". Assessment & Plan - Assessment and Plan (Free Text) Assessment: 57 yr old M laying in bed in no acute distress. Reports he is "starving and I need to eat". Patient denies abdominal pain, nausea, vomiting or diarrhea. No abdominal tenderness to palpation, no guarding. Discussed with patient and nurse at bedside to start with some apple juice and jello slowly and as tolerated. Plan: Clear fluids by mouth, apple juice and jello as tolerated. - Date & Time Date: 05/30/17 Time: 21:23
[2017-05-31 05:58] LABS: HEMOGLOBIN 14.6 g/dL (12.0-18.0); MEAN CELL VOLUME 92.7 fl (80.0-94.0); MEAN CORPUSCULAR HEMOGLOBIN 30.8 pg (27.0-31.0); MEAN CORPUSCULAR HGB CONC 33.2 g/dL (33.0-37.0); RBC 4.73 Mil/uL (4.40-5.90); RED CELL DISTRIBUTION WIDTH 14.1 % (11.5-14.5); WHITE BLOOD COUNT 3.8 K/uL (4.8-10.8)
[2017-05-31 06:18] LABS: ALB/GLOB RATIO 1.4 (1.0-2.1); ALBUMIN 4.5 g/dL (3.5-5.0); ALT/SGPT 73 U/L (21-72); AST/SGOT 104 U/L (17-59); BLOOD UREA NITROGEN 3 mg/dl (9-20); CALCIUM 8.8 mg/dL (8.4-10.2); GFR AFRICAN-AMERICAN > 60; GFR NON-AFRICAN AMERICAN > 60
[2017-05-31 08:23] LABS: BASO % 0.6 % (0.0-2.0); EOS % 0.5 % (0.0-4.0); HEMOGLOBIN 14.1 g/dL (12.0-18.0); LYMPH # 1.3 K/uL (1.0-4.3); LYMPH % 29.1 % (20.0-40.0); MEAN CELL VOLUME 91.8 fl (80.0-94.0); MEAN CORPUSCULAR HEMOGLOBIN 30.7 pg (27.0-31.0); MEAN CORPUSCULAR HGB CONC 33.4 g/dL (33.0-37.0); MEAN PLATELET VOLUME 7.9 fl (7.2-11.7); MONO # 0.3 K/uL (0.0-0.8); MONO % 6.1 % (0.0-10.0); NEUT # 2.8 K/uL (1.8-7.0); NEUT % 63.7 % (50.0-75.0); NRBC % 0.5 % (0.0-0.0); RBC 4.6 Mil/uL (4.40-5.90); RED CELL DISTRIBUTION WIDTH 14.2 % (11.5-14.5); WHITE BLOOD COUNT 4.4 K/uL (4.8-10.8)
[2017-05-31 08:35] LABS: MAGNESIUM 1.7 MG/DL (1.6-2.3)
[2017-05-31] MEDS: Potassium CL 10 MEQ/50 ML 50 ML IVPB SCH ×4 (08:42→12:24)
--- NOTE | 2017-05-31 09:38 | CP.PCM.PN ---
Addendum entered and electronically signed by Anastasiia Le DPM 06/01/17 09:07 : 1) Left-sided chest pain, r/o ACS -trop x3 neg -EKG shows no acute interval changes -ECHO with transmitral doppler flow pattern is grade I-abnormal relaxation pattern, otherwise WNL -ACS ruled out at this time -CP likely due to gastritis/pancreatitis secondary to alcohol abuse Original Note: <Anastasiia Le - Last Filed: 05/31/17 16:07> Subjective - Date & Time of Evaluation Date of Evaluation: 05/31/17 Time of Evaluation: 09:38 - Subjective Subjective: 57 y/o male seen resting in bed this morning. Pt says his pain has improved and he has not felt nauseous or vomited since hospital admission. Pt is tolerating PO diet without difficulty and consumed a full soft breakfast this morning. Denies fever or chills. States he is not currently withdrawing and denies cold sweats. Admits he was having tremors yesterday but they have resolved today. Admits to diarrhea but states it is chronic in nature and he has experienced it for 20+ years. Describes his bowel movements as "mushy" but not watery. Denies CP/SOB. Objective - Vital Signs/Intake and Output Vital Signs (last 24 hours): Temp Pulse Resp BP Pulse Ox 98.3 F 96 H 20 129/82 98 05/31/17 08:19 05/31/17 08:42 05/31/17 08:19 05/31/17 08:42 05/31/17 08:19 - Medications Medications: Current Medications Amlodipine Besylate (Norvasc) 5 mg PO DAILY [facility] Last Admin: 05/31/17 08:42 Dose: 5 mg Chlordiazepoxide (Librium) 50 mg PO Q8 CHARLINE Last Admin: 05/31/17 08:42 Dose: 50 mg Potassium Chloride (Potassium Cl 10meq/50ml Sterile Water) 50 mls @ 50 mls/hr IVPB Q1 CHARLINE Stop: 05/31/17 11:59 Last Admin: 05/31/17 08:42 Dose: 50 mls/hr Lorazepam (Ativan) 1 mg PO Q6 PRN PRN Reason: Agitation Ondansetron HCl (Zofran Inj) 4 mg IVP Q4 PRN PRN Reason: Nausea/Vomiting - Labs Labs: 05/31/17 08:07 05/31/17 05:00 - Constitutional Appears: Well, Non-toxic, No Acute Distress - Head Exam Head Exam: ATRAUMATIC, NORMOCEPHALIC - Eye Exam Eye Exam: EOMI, Normal appearance Pupil Exam: PERRL - ENT Exam ENT Exam: Mucous Membranes Moist - Neck Exam Neck Exam: Full ROM, Normal Inspection. absent: Tenderness - Respiratory Exam Respiratory Exam: Clear to Ausculation Bilateral, NORMAL BREATHING PATTERN. absent: Rhonchi, Wheezes - Cardiovascular Exam Cardiovascular Exam: REGULAR RHYTHM, +S1, +S2 - GI/Abdominal Exam GI & Abdominal Exam: Distended, Soft, Normal Bowel Sounds. absent: Tenderness - Rectal Exam Rectal Exam: Deferred - Extremities Exam Extremities Exam: Normal Capillary Refill, Normal Inspection. absent: Calf Tenderness - Back Exam Back Exam: NORMAL INSPECTION - Neurological Exam Neurological Exam: Alert, Awake, Oriented x3 - Psychiatric Exam Psychiatric exam: Flat Affect, Suicidal Ideation - Skin Skin Exam: Dry, Intact Assessment and Plan - Assessment and Plan (Free Text) Assessment: 1) Left-sided chest pain, r/o ACS -trop x3 neg -EKG 05/29/17: sinus tachy, left anterior fascicular block, mild left atrial enlargement -repeat EKG -no acute interval changes -CXR: no active disease -ECHO: LV normal size, normal wall thickness, normal segmental wall motion, normal systolic fxn; EF 65-70% -transmitral doppler flow pattern is grade I-abnormal relaxation pattern -L rib series ordered - no evidence of left rib fx -tachycardia resolving; continue to monitor (2) Abdominal tenderness, likely secondary to gastritis -last abd U/S on 04/05/17 - hepatic steatosis, no other acute findings -hx of alcohol abuse -hx of pancreatitis --> lipase 486 -IV fluids -advanced to soft diet -gallbladder U/S ordered -Zofran PRN nausea (3) Hypokalemia -likely secondary to diarrhea -K+ 3.0 today AM -4 bags 10 mEq KCl given -K-Dur 40mg PO daily (4) Diarrhea -ongoing/chronic in nature -stool cx ordered -K+ replaced (5) Hypomagnesemia -Mg 1.7 up from 1.2 -given IV Mg sulfate yesterday -monitor (5) Depression with bipolar disorder and suicidal ideations -start Librium -psych consulted; appreciate recs -continue 1:1 -if pt is agreeable, will consider transfer to psych once pt is medically stable (6) Alcohol abuse -chronic EtOH abuse -quant alcohol level 71 -Ativan PRN for withdrawal sx (7) Hypertension -c/w Norvasc 5mg PO daily -monitor (8) DVT prophylaxis -SCDs (9) Code status -full code <Emily Cordova - Last Filed: 06/02/17 07:42> Objective - Vital Signs/Intake and Output Vital Signs (last 24 hours): Temp Pulse Resp BP Pulse Ox 98.5 F 101 H 20 131/84 99 06/01/17 12:00 06/01/17 12:00 06/01/17 12:00 06/01/17 12:00 06/01/17 12:00 - Labs Labs: 05/31/17 08:07 05/31/17 16:45 Attending/Attestation - Attestation I have personally seen and examined this patient.: Yes I have fully participated in the care of the patient.: Yes I have reviewed all pertinent clinical information, including history, physical exam and plan: Yes Notes (Text): 06/02/17 07:42 ATTENDING NOTE ATTESTATION Patient seen and examined. Case discussed with resident. Agree with findings and plan.
[2017-05-31] MEDS: Potassium Chloride 20 mEq ER Tab PO SCH (10:27)
[2017-05-31 17:18] LABS: ALB/GLOB RATIO 1.5 (1.0-2.1); ALBUMIN 4.5 g/dL (3.5-5.0); ALT/SGPT 67 U/L (21-72); AST/SGOT 92 U/L (17-59); BLOOD UREA NITROGEN 4 mg/dl (9-20); CALCIUM 9.3 mg/dL (8.4-10.2); GFR AFRICAN-AMERICAN > 60; GFR NON-AFRICAN AMERICAN > 60
--- NOTE | 2017-06-01 08:15 | PQF GENQUE ---
This form is a permanent part of the medical record 06/01/17 Dr. Reed Joseph, Documentation of Chest pain R/O ACS. 1) Please clarify if the ACS is ruled in or ruled out. 2) If ruled out please clarify the cause of the chest pain if known. If unable to determine please document. Patient presents with L sided chest pain and tenderness. + cough and mild SOB on exertion. EKG sinus tachycardia, LAFB per H&P. ECHO:EF 65-70%, abnormal relaxation pattern. Troponin x 4 normal. Clarification of your documentation is requested to better reflect the severity of illness and intensity of treatment of your patient. Indicators present [] Specify: [] [] Specify: [] [] Specify: [] [] Specify: [] Location in the medical record that reflects the above clinical findings: [] Treatment Provided: [] PHYSICIAN'S RESPONSE 1) Please clarify if the ACS is ruled in or ruled out. 2) If ruled out please clarify the cause of the chest pain if known. If unable to determine please document. Based on your medical judgment of the clinical indicators outlined above please clarify the following: [] Practitioner response [] If unable to determine, please check the box, sign and date. Present On Admission (POA) Indicator: [] Present at the time of admission [] Not present at the time of admission [] Clinically Undetermined In responding to this query, please exercise your independent professional judgment. The fact that a question is asked does not imply that any particular answer is desired or expected. Thank you for your clarification on this documentation. If you have any questions please call:ext [phone] * Thank you, Ophelia Day RN CDMP [facility]
--- NOTE | 2017-06-01 08:36 | US ---
HISTORY: INCREASED ALK PHOS, abd pain, diarrhea COMPARISON: Ultrasound dated 12/13/2016. TECHNIQUE: Sonographic evaluation of the right upper quadrant of the abdomen. FINDINGS: LIVER: Measures 16.2 cm in length. Increased echogenicity of the liver parenchyma. No mass. No intrahepatic bile duct dilatation. GALLBLADDER: Unremarkable. No gallstones. COMMON BILE DUCT: Measures 4 mm. No stones. No dilatation. PANCREAS: Not well-visualized. RIGHT KIDNEY: Measures 11.4 x 4.6 x 6.1 cm in length. Normal echogenicity. No calculus, mass, or hydronephrosis. AORTA: No aneurysmal dilatation. IVC: Unremarkable. OTHER FINDINGS: None . IMPRESSION: Hepatic steatosis.
--- NOTE | 2017-06-01 10:02 | CP.PCM.DIS ---
Provider - Provider Date of Admission: 05/30/17 12:15 Attending physician: Cande Palacios MD Time Spent in preparation of Discharge (in minutes): 20 Diagnosis - Discharge Diagnosis (1) Diarrhea Status: Chronic Priority: Low Comment: -improved (2) Depression with suicidal ideation Status: Chronic Priority: High Comment: -transfer to psych for continued management (3) Alcohol abuse Status: Chronic Priority: Medium Comment: -Ativan for withdrawals. -continue tx in psych Hospital Course - Lab Results Lab Results: Most Recent Lab Values WBC 4.4 K/uL (4.8-10.8) L 05/31/17 08:07 RBC 4.60 Mil/uL (4.40-5.90) 05/31/17 08:07 Hgb 14.1 g/dL (12.0-18.0) 05/31/17 08:07 Hct 42.3 % (35.0-51.0) 05/31/17 08:07 MCV 91.8 fl (80.0-94.0) 05/31/17 08:07 MCH 30.7 pg (27.0-31.0) 05/31/17 08:07 MCHC 33.4 g/dL (33.0-37.0) 05/31/17 08:07 RDW 14.2 % (11.5-14.5) 05/31/17 08:07 Plt Count 131 K/uL (130-400) 05/31/17 08:07 MPV 7.9 fl (7.2-11.7) 05/31/17 08:07 Neut % (Auto) 63.7 % (50.0-75.0) 05/31/17 08:07 Lymph % (Auto) 29.1 % (20.0-40.0) 05/31/17 08:07 [place] % (Auto) 6.1 % (0.0-10.0) 05/31/17 08:07 Eos % (Auto) 0.5 % (0.0-4.0) 05/31/17 08:07 Baso % (Auto) 0.6 % (0.0-2.0) 05/31/17 08:07 Neut # 2.8 K/uL (1.8-7.0) 05/31/17 08:07 Lymph # 1.3 K/uL (1.0-4.3) 05/31/17 08:07 [place] # 0.3 K/uL (0.0-0.8) 05/31/17 08:07 Eos # 0.0 K/uL (0.0-0.7) 05/31/17 08:07 Baso # 0.0 K/uL (0.0-0.2) 05/31/17 08:07 Sodium 137 mmol/l (132-148) 05/31/17 16:45 Potassium 3.9 MMOL/L (3.6-5.0) 05/31/17 16:45 Chloride 103 mmol/L (98-107) 05/31/17 16:45 Carbon Dioxide 21 mmol/L (22-30) L 05/31/17 16:45 Anion Gap 17 (10-20) 05/31/17 16:45 BUN 4 mg/dl (9-20) L 05/31/17 16:45 Creatinine 0.6 mg/dl (0.8-1.5) L 05/31/17 16:45 Est GFR ( Amer) > 60 05/31/17 16:45 Est GFR (Non-Af Amer) > 60 05/31/17 16:45 Random Glucose 108 mg/dL (75-110) 05/31/17 16:45 Calcium 9.3 mg/dL (8.4-10.2) 05/31/17 16:45 Magnesium 1.7 MG/DL (1.6-2.3) 05/31/17 08:07 Total Bilirubin 0.5 mg/dl (0.2-1.3) 05/31/17 16:45 AST 92 U/L (17-59) H 05/31/17 16:45 ALT 67 U/L (21-72) 05/31/17 16:45 Alkaline Phosphatase 183 U/L (38-126) H 05/31/17 16:45 Troponin I < 0.0120 ng/mL (0.00-0.120) 05/31/17 08:07 NT-Pro-B Natriuret Pep 24.9 pg/ml (0-900) 05/30/17 10:40 Total Protein 7.5 G/DL (6.3-8.2) 05/31/17 16:45 Albumin 4.5 g/dL (3.5-5.0) 05/31/17 16:45 Globulin 3.0 gm/dL (2.2-3.9) 05/31/17 16:45 Albumin/Globulin Ratio 1.5 (1.0-2.1) 05/31/17 16:45 Lipase 486 U/L (23-300) H 05/30/17 10:40 Urine Opiates Screen Negative (NEGATIVE) 05/30/17 08:40 Urine Methadone Screen Negative (NEGATIVE) 05/30/17 08:40 Ur Barbiturates Screen Negative (NEGATIVE) 05/30/17 08:40 Ur Phencyclidine Scrn Negative (NEGATIVE) 05/30/17 08:40 Ur Amphetamines Screen Negative (NEGATIVE) 05/30/17 08:40 U Benzodiazepines Scrn Negative (NEGATIVE) 05/30/17 08:40 U Oth Cocaine Metabols Negative (NEGATIVE) 05/30/17 08:40 U Cannabinoids Screen Negative (NEGATIVE) 05/30/17 08:40 Alcohol, Quantitative 71 mg/dl (0-10) H 05/30/17 12:25 Blood Type B POSITIVE 05/30/17 14:50 Antibody Screen Negative 05/30/17 14:50 BBK History Checked Patient has bt 05/30/17 14:50 - Hospital Course Hospital Course: 57 y/o male with PMHx of COPD, HTN, GERD, gastritis and pancreatitis secondary to alcohol abuse, HLD, hx of seizures, chronic LBP, depression and bipolar disorder admitted for left sided chest pain and tenderness. Cardiac workup was performed to rule out ACS, including three negative troponin levels, two EKG's with no acute interval changes and an ECHO with normal left ventricle wall thickness and function with ejection fraction 65-70%. Abdominal ultrasound was also performed, which yielded no acute changes and chronic hepatic steatosis. Patient was also treated for hypokalemia and hypomagnesemia secondary to chronic diarrhea, and received KCl and Mg sulfate supplementation. Patient will be discharged from telemetry in stable condition and admitted to the adult psych unit for continued management of depression with suicidal ideations. Discharge Exam - Head Exam Head Exam: ATRAUMATIC, NORMOCEPHALIC - Eye Exam Eye Exam: EOMI, Normal appearance - ENT Exam ENT Exam: Mucous Membranes Moist - Neck Exam Neck exam: Full Rom - Respiratory Exam Respiratory Exam: NORMAL BREATHING PATTERN. absent: Chest Wall Tenderness - Cardiovascular Exam Cardiovascular Exam: REGULAR RHYTHM, +S1, +S2 - GI/Abdominal Exam GI & Abdominal Exam: Distended, Normal Bowel Sounds, Soft - Rectal Exam Rectal Exam: Deferred - Extremities Exam Extremities exam: normal capillary refill, normal inspection, pedal pulses present Additional comments: mild tenderness upon active flexion and extension of right hand 5th digit - Back Exam Back exam: NORMAL INSPECTION - Neurological Exam Neurological exam: Alert, Oriented x3 - Psychiatric Exam Psychiatric exam: Depressed, Suicidal Ideation - Skin Skin Exam: Dry, Intact Discharge Plan - Follow Up Plan Condition: STABLE Disposition: DISCHARGE TO PSYCH HOSPITAL Instructions: Suicide Prevention for Adults (DC), Suicide Prevention for Adults (GEN)
[2017-06-01] MEDS: Potassium Chloride 20 mEq ER Tab PO SCH (10:33)
[2017-06-01 12:31] VITALS: BP 131/84; PULSE 101; RESP 20; TEMP 98.5; O2SAT 99
== END 2017-06-01 14:30 | DRG 182 ==
LOC: H.ER 03:55 → H.ERHOLD 06:27 → H.TEL 10:14 → OBSVTOIN 12:15
PROVIDERS: ADMIT Family Medicine Geriatric Medicine; ATTEND Family Medicine Geriatric Medicine
DX: K29.70 Gastritis, unspecified, without bleeding (principal); F20.9 Schizophrenia, unspecified; E83.42 Hypomagnesemia; R45.851 Suicidal ideations; J44.9 Chronic obstructive pulmonary disease, unspecified; E87.6 Hypokalemia; F10.14 Alcohol abuse with alcohol-induced mood disorder; R07.89 Other chest pain; F31.9 Bipolar disorder, unspecified; K21.9 Gastro-esophageal reflux disease without esophagitis; E78.00 Pure hypercholesterolemia, unspecified; K52.9 Noninfective gastroenteritis and colitis, unspecified; F17.210 Nicotine dependence, cigarettes, uncomplicated; Y90.3 Blood alcohol level of 60-79 mg/100 ml; Z79.1 Long term (current) use of non-steroidal anti-inflammatories (NSAID); Z79.899 Other long term (current) drug therapy; Z91.19 Patient's noncompliance with other medical treatment and regimen

== ENCOUNTER 2017-06-01 12:55 | Inpatient (IN) | payer MEDICAID ==
[2017-06-01] MEDS ORDERED: DiphenhydrAMINE 50 mg/ml Inj IM PRN (15:09)
[2017-06-01] MEDS ORDERED: Magnesium Hydroxide Susp 30 ml UD PO PRN (15:09)
--- NOTE | 2017-06-01 15:26 | PCM.PSYCH ---
Initial Psychiatric Evaluation - Initial Psychiatric Evaluation Type of Admission: Voluntary Legal Status: Capacity Chief Complaint (in patient's own words): i had conflict with one of my friends Patient's Reaction to Hospitalization: pt requested help History of Present Illness and Precipitating Events: pt with previous diagnosis of alcohol use disorder, bipolar depression, recently discharged from tis facility non compliant with follow up recently had conflicts with friends, started using alcohol, presented to the ER with depressed mood, pt also had chest and abdominal pain, was admitted to medicine and on medical clearence transferred to psychiatry for further stabilization pt reported feeling depressed and anxious denied any current suicidal or homicidal ideations denie perceptual disturbances Current Medications: Active Medications Generic Name Dose Route Start Last Admin Trade Name Freq PRN Reason Stop Dose Admin Al Hydrox/Mg Hydrox/Simethicone 30 ml 06/01/17 15:09 Maalox Plus 30 Ml PO Q4 PRN Dyspepsia Amlodipine Besylate 5 mg 06/02/17 09:00 Norvasc PO DAILY CHARLINE Chlordiazepoxide 50 mg 06/01/17 17:00 Librium PO Q8 CHARLINE Diphenhydramine HCl 50 mg 06/01/17 15:09 Benadryl IM Q6 PRN Extrapyramidal S/S Unable PO Diphenhydramine HCl 50 mg 06/01/17 15:09 Benadryl PO Q6 PRN Extrapyramidal Symptoms Gabapentin 100 mg 06/01/17 17:00 Neurontin PO TID CHARLINE Haloperidol 5 mg 06/01/17 15:09 Haldol PO Q4 PRN Agitation Haloperidol Lactate 5 mg 06/01/17 15:09 Haldol IM Q4 PRN Agitation, Unable to Take PO Lorazepam 2 mg 06/01/17 15:09 Ativan IM Q4 PRN Anxiety/Agitation,Unable PO Lorazepam 2 mg 06/01/17 15:09 Ativan PO Q4 PRN Anxiety/Agitation Magnesium Hydroxide 30 ml 06/01/17 15:09 Milk Of Magnesia PO HS PRN Constipation Quetiapine Fumarate 100 mg 06/01/17 22:00 Seroquel PO HS CHARLINE Past Psychiatric History - Past Psychiatric History Explanation of prior treatment: unspecified number of hospitalizations non compliant with treatment History of Abuse: denied History of ETOH/Drug Use: hx of alcohol use disorder Pertinent Medical Hx (Current Medical&Sleep Prob, Allergies): Allergies Allergy/AdvReac Type Severity Reaction Status Date / Time No Known Allergies Allergy Verified 05/30/17 04:17 LORazepam [Ativan] 1 mg PO Q6 PRN tab 06/01/17 amLODIPine [Norvasc] 5 mg PO DAILY tab 06/01/17 chlordiazePOXIDE [Librium] 50 mg PO Q8 cap 06/01/17 Mental Status Examination - Personal Presentation Personal Presentation: Looks stated age - Affect Affect: Constricted, Depressed - Motor Activity Motor Activity: Psychomotor Retardation - Reliability in Providing Information Reliability in Providing Information: Poor, due to altered mood - Speech Speech: Relevant - Mood Mood: Depressed, Anxious - Formal Thought Process Formal Thought Process: Circumstantial - Hallucinations/Delusions Additional comments: denied any current perceptual disturbances, non elicited - Obsessions/Compulsions Obsessions: No Compulsions: No - Cognitive Functions Orientation: Person, Place Sensorium: Alert Attention/Concentration: Attentive Abstract Thinking: [place] Judgement: Imparied, as evidence by: Poor judgement, Imparied, as evidence by: Lack of insight into illness - Risk Risk: Withdrawal, Diminished functioning - Strength & Assets Inventory Strength & Assets Inventory: Life experience - Limitations Additional comments: poor compliance financial difficulties DSM 5 DX - DSM 5 DSM 5 Diagnosis: alcohol induced mood disorder with depressive features alcohol use disorder bipolar disorder depressed - Recommended/Plan of Treatment Treatment Recommendations and Plan of Treatment: start neurontin 100mg tid for anxiety seroquel 100mg qhs with plan steven uptitrate CBT, MOTIVATIONAL AND GROUP THERAPY Prognosis: guarded Discharge Plan and Discharge Criteria: PT MOOD STABLE
--- NOTE | 2017-06-01 15:56 | PCM.BM ---
<Rosa M Burks - Last Filed: 06/01/17 16:00> Treatment Plan Problems - Problems identified on initial assessmt Ineffective Impulse Control Date Initiated: 06/01/17 Time Initiated: 15:58 Assessment reference: NA Status: Active Treatment assets and liabiliti Patient Assests: adapts well, cooperative, self-reliant, ADL independent, negotiates basic needs, cognitively intact Patient Liabilities: financial problems, poor support system, substance abuse, medical problems - Milieu Protocol Maintain good personal hygiene: daily Encourage regular showers, daily Remind patient to perform daily oral care, daily Assist patient to perform ADL's, every shift Assist patient to perform ADL's Conduct patient checks and document Observation sheet: Q15 minutes Maintain personal safety: every shift Educate patient to report safety concerns to staff, every shift Monitor environment for contraband/sharps Medication safety: Monitor for expected outcome, potential side effects: every shift, Assess barriers to learning: every shift, Assess readiness for medication education: every shift Milieu Narrative: start neurontin 100mg tid for anxiety seroquel 100mg qhs with plan steven uptitrate CBT, MOTIVATIONAL AND GROUP THERAPY Discharge/Continuing Care - Treatment Team Participation Patient/Family/SO Statement: start neurontin 100mg tid for anxiety seroquel 100mg qhs with plan steven uptitrate CBT, MOTIVATIONAL AND GROUP THERAPY <Jean Pierre Delacruz - Last Filed: 06/06/17 11:10> - Diagnosis (1) Depression Status: Acute Interventions: 06/03/17 12:20 psychotherapy pharmacotherapy
--- NOTE | 2017-06-01 16:00 | PCM.BM ---
<Rosa M Burks M - Last Filed: 06/01/17 16:01> Treatment Plan Problems - Problems identified on initial assessmt Ineffective Impulse Control Date Initiated: 06/01/17 Time Initiated: 15:58 Assessment reference: NA Status: Active Treatment assets and liabiliti Patient Assests: adapts well, cooperative, self-reliant, ADL independent, negotiates basic needs, cognitively intact Patient Liabilities: financial problems, poor support system, substance abuse, medical problems - Milieu Protocol Maintain good personal hygiene: daily Encourage regular showers, daily Remind patient to perform daily oral care, daily Assist patient to perform ADL's Conduct patient checks and document Observation sheet: Q15 minutes Maintain personal safety: daily Educate patient to report safety concerns to staff, daily Monitor environment for contraband/sharps, every shift Educate patient to report safety concerns to staff, every shift Monitor environment for contraband/sharps Medication safety: Monitor for expected outcome, potential side effects: daily, Assess barriers to learning: daily, Assess readiness for medication education: daily Milieu Narrative: start neurontin 100mg tid for anxiety seroquel 100mg qhs with plan steven uptitrate CBT, MOTIVATIONAL AND GROUP THERAPY Discharge/Continuing Care - Treatment Team Participation Patient/Family/SO Statement: start neurontin 100mg tid for anxiety seroquel 100mg qhs with plan steven uptitrate CBT, MOTIVATIONAL AND GROUP THERAPY <Jeff Rush J - Last Filed: 06/02/17 16:01> Family Contact Family involvement: Famliy/SO not involved Family contact: Patient declines to allow family contact at present Family contact name: Pt denied. Discharge/Continuing Care - Education Needs Education Needs: Patient Medication, Patient Coping Skills, Patient Community resources, Patient Personal Hygiene/Grooming, Patient Aftercare Safety Plan - Discharge Discharge Criteria: Tolerates medication w/o severe side effects, Free of Suicidal thoughts, Ability to care for self, Reduction of target symptoms Discharge to:: [facility] - Treatment Team Participation Discussed with Family/SO: No Was Patient/Family/SO present at Treatment Team Meeting: Yes
[2017-06-01] MEDS ORDERED: Albuterol HFA 90 mcg/actuation (8 g) INH PRN (18:16)
[2017-06-01] MEDS: Lidocaine 5% Patch TD SCH (21:13)
[2017-06-02] MEDS: Multivitamin With Minerals Tab PO SCH (09:02)
[2017-06-02] MEDS: Lidocaine 5% Patch TD SCH (09:04)
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
--- NOTE | 2017-06-02 11:03 | PCM.PYCHPN ---
Psychiatric Progress Note - Psychiatric Progress Note Patient seen today, length of contact: pt evaluated discussed with team chart reviewed Patient Chief Complaint: I have chest pain it is worse when I cough Problems Identified/Issues Discussed: pt seen in bed dysphoric distressed , anxious mood and affect reported left chest pain increases with coughing, pt appears weak and anhedonic pt on evaluation no tremulosness or shakiness observed in the upper limbs, pulse noted to be 122, will continue with ativan 2mg q 4hrs for symptoms and signs of alcohol withdrawal, gabapentin 100mg tid for anxiety and alcohol withdrawal follow up on chest xray requested by family practice pt at current mental status deiNed any perceptual disturbances, denied any psychotic symptoms,no observed signs of pending DT.S DENIED any current suicidal or homicidal ideations alert and awake Medical Problems: pt presenting with diarrhea/ improving and left chest pain follow up by internal medicine DSM 5 Symptoms Update: alcohol induced mood disorder with depressive features during withdrawal alcohol use disorder bipolar disorder depressed Medication Change: No Medical Record Reviewed: Yes Mental Status Examination - Cognitive Function Orientation: Person, Place Attention: WNL Concentration: WNL Association: WNL Fund of Knowledge: Poor Decription of patient's judgement and insights: impaired insight and poor judgement - Mood Mood: Depressed, Anxious - Affect Affect: Constricted, Depressed - Speech Speech: Soft - Formal Thought Process Formal Thought Process: Circumstantial Psychotic Thoughts and Behaviors: pt denied any perceptual disturbances or psychotic symptoms at current mental status, non elicited - Suicidal Ideation Suicidal Ideation: No - Homicidal Ideation Homicidal Ideation: No Goal/Treatment Plan - Goal/Treatment Plan Need for Continued Stay: Severe depression anxiety, Discharge may exacerbated symptoms Progress Toward Problem(s) and Goals/Treatment Plan: ativan 2mg q4 prn for symptoms and signs of alcohol withdrawal, follow up on vital signs continue neurontin 100mg tid for anxiety seroquel 100mg qhs with plan steven uptitrate CBT, MOTIVATIONAL AND GROUP THERAPY family practice consult noted follow up on results of chest xray Estimated Date of D/C: 06/09/17
--- NOTE | 2017-06-02 11:04 | RAD ---
HISTORY: productive cough with extensive smoking hx COMPARISON: Comparison made with chest radiograph dated 05/30/2017. TECHNIQUE: Chest PA and lateral FINDINGS: LUNGS: No active pulmonary disease. PLEURA: No significant pleural effusion identified. No pneumothorax apparent. CARDIOVASCULAR: Normal. OSSEOUS STRUCTURES: Minor multilevel degenerative spondylosis of the thoracic spine. VISUALIZED UPPER ABDOMEN: Normal. OTHER FINDINGS: None. IMPRESSION: No acute infiltrates.
[2017-06-02] MEDS ORDERED: Albuterol-Ipratrop 3 mg / 0.5 (3 ml) UD INH PRN (11:28)
[2017-06-02 12:23] LABS: BASO # 0.1 K/uL (0.0-0.2); BASO % 0.8 % (0.0-2.0); EOS # 0.1 K/uL (0.0-0.7); EOS % 0.7 % (0.0-4.0); HEMOGLOBIN 13.9 g/dL (12.0-18.0); LYMPH # 1.5 K/uL (1.0-4.3); LYMPH % 17.5 % (20.0-40.0); MEAN CELL VOLUME 93.6 fl (80.0-94.0); MEAN CORPUSCULAR HEMOGLOBIN 30.9 pg (27.0-31.0); MEAN PLATELET VOLUME 8.4 fl (7.2-11.7); MONO # 0.4 K/uL (0.0-0.8); MONO % 5.2 % (0.0-10.0); NEUT # 6.3 K/uL (1.8-7.0); NEUT % 75.8 % (50.0-75.0); RBC 4.5 Mil/uL (4.40-5.90); RED CELL DISTRIBUTION WIDTH 14.3 % (11.5-14.5); WHITE BLOOD COUNT 8.3 K/uL (4.8-10.8)
[2017-06-02 12:57] LABS: ALB/GLOB RATIO 1.4 (1.0-2.1); ALBUMIN 4.2 g/dL (3.5-5.0); ALT/SGPT 96 U/L (21-72); AST/SGOT 156 U/L (17-59); BLOOD UREA NITROGEN 7 mg/dl (9-20); CALCIUM 10.1 mg/dL (8.4-10.2); GFR AFRICAN-AMERICAN > 60; GFR NON-AFRICAN AMERICAN > 60
[2017-06-02] MEDS: Promethazine/Cod 6.25mg-10mg/5ml Syr UD PO PRN (19:04)
[2017-06-03] MEDS: Lidocaine 5% Patch TD SCH (09:36)
[2017-06-03] MEDS: Multivitamin With Minerals Tab PO SCH (09:37)
--- NOTE | 2017-06-03 11:46 | CARD ---
APPROVED REPORT EKG Measurement Heart [id number] <Conclusion> Poor data quality, interpretation may be adversely affected Sinus tachycardia Otherwise normal ECG
--- NOTE | 2017-06-03 12:24 | PCM.PYCHPN ---
Psychiatric Progress Note - Psychiatric Progress Note Patient seen today, length of contact: pt evaluated discussed with team chart reviewed Patient Chief Complaint: I feel anxious at times Problems Identified/Issues Discussed: pt seen in day room , anxious mood and affect pt continues to have low energy and anhedonic pt on evaluation no tremulosness or shakiness observed in the upper limbs, librium 10mg q8 started for symptoms and signs of alcohol withdrawal, gabapentin 100mg tid for anxiety and alcohol withdrawal follow up on chest xray requested by family practice pt at current mental status denied any perceptual disturbances, denied any psychotic symptoms,no observed signs of pending DT.S DENIED any current suicidal or homicidal ideations alert and awake Medical Problems: pt presenting with diarrhea/ improving and left chest pain follow up by internal medicine DSM 5 Symptoms Update: alciohol induced mood disorder alcohol use disorder Medication Change: No Medical Record Reviewed: Yes Mental Status Examination - Cognitive Function Orientation: Person, Place Attention: WNL Concentration: WNL Association: WNL Fund of Knowledge: Poor Decription of patient's judgement and insights: impaired insight and poor judgement - Mood Mood: Depressed, Anxious - Affect Affect: Constricted, Depressed - Speech Speech: Soft - Formal Thought Process Formal Thought Process: Circumstantial Psychotic Thoughts and Behaviors: pt denied any perceptual disturbances or psychotic symptoms at current mental status, non elicited - Suicidal Ideation Suicidal Ideation: No - Homicidal Ideation Homicidal Ideation: No Goal/Treatment Plan - Goal/Treatment Plan Need for Continued Stay: Severe depression anxiety, Discharge may exacerbated symptoms Progress Toward Problem(s) and Goals/Treatment Plan: librium 10mg q8 symptoms and signs of alcohol withdrawal, follow up on vital signs continue neurontin 100mg tid for anxiety seroquel 100mg qhs with plan steven uptitrate CBT, MOTIVATIONAL AND GROUP THERAPY family practice consult noted follow up on results of chest xray Estimated Date of D/C: 06/09/17
[2017-06-04] MEDS: Lidocaine 5% Patch TD SCH (09:24)
[2017-06-04] MEDS: Multivitamin With Minerals Tab PO SCH (09:25)
[2017-06-04] MEDS: Promethazine/Cod 6.25mg-10mg/5ml Syr UD PO PRN ×2 (09:49→15:56)
--- NOTE | 2017-06-04 11:05 | PCM.PYCHPN ---
Psychiatric Progress Note - Psychiatric Progress Note Patient seen today, length of contact: pt evaluated discussed with team chart reviewed Patient Chief Complaint: I feel a little better today Problems Identified/Issues Discussed: pt seen in day room , reported feeling less anxious anxious mood and less depressed no changes in sleep or appetite, better level of energy and feeling less weak pt at current mental status denied any perceptual disturbances, denied any psychotic symptoms,no observed signs of pending DT.S DENIED any current suicidal or homicidal ideations alert and awake Medical Problems: pt presenting with diarrhea/ improving and left chest pain follow up by internal medicine DSM 5 Symptoms Update: alcohol induced mood disorder alcohol use disorder hx of bipolar disorder Medication Change: Yes (decrease librium gradually) Medical Record Reviewed: Yes Mental Status Examination - Cognitive Function Orientation: Person, Place Attention: WNL Concentration: WNL Association: WNL Fund of Knowledge: Poor Decription of patient's judgement and insights: impaired insight and poor judgement - Mood Mood: Depressed, Anxious - Affect Affect: Constricted, Depressed - Speech Speech: Soft - Formal Thought Process Formal Thought Process: Circumstantial Psychotic Thoughts and Behaviors: pt denied any perceptual disturbances or psychotic symptoms at current mental status, non elicited - Suicidal Ideation Suicidal Ideation: No - Homicidal Ideation Homicidal Ideation: No Goal/Treatment Plan - Goal/Treatment Plan Need for Continued Stay: Severe depression anxiety, Discharge may exacerbated symptoms Progress Toward Problem(s) and Goals/Treatment Plan: librium 10mg q12 for symptoms and signs of alcohol withdrawal, follow up on vital signs continue neurontin 100mg tid for anxiety seroquel 100mg qhs with plan steven uptitrate CBT, MOTIVATIONAL AND GROUP THERAPY Estimated Date of D/C: 06/09/17
--- NOTE | 2017-06-05 08:50 | CP.PCM.PN ---
Subjective - Date & Time of Evaluation Date of Evaluation: 06/05/17 Time of Evaluation: 08:47 - Subjective Subjective: Pt seen and examined by bedside this AM. No acute overnight events. Pt states that he feels well this morning, he was seen walking in the hallway without any difficulties. Pt endorses pain in L diagram area with cough (non-productive), but expresses that it has improved from before. Denies headaches, n/v/d/c, abdominal pain and remains afebrile. Objective - Vital Signs/Intake and Output Vital Signs (last 24 hours): Temp Pulse Resp BP Pulse Ox 96.3 F L 107 H 20 141/83 06/04/17 09:00 06/04/17 21:00 06/04/17 09:00 06/04/17 21:00 - Medications Medications: Current Medications Al Hydrox/Mg Hydrox/Simethicone (Maalox Plus 30 Ml) 30 ml PO Q4 PRN PRN Reason: Dyspepsia Albuterol (Ventolin Hfa 90 Mcg/Actuation (8 G)) 2 puff INH RQ6 PRN PRN Reason: Shortness of Breath Last Admin: 06/02/17 14:20 Dose: 2 puff Albuterol/Ipratropium (Duoneb 3 Mg/0.5 Mg (3 Ml) Ud) 3 ml INH RQ6 PRN PRN Reason: Shortness of Breath Amlodipine Besylate (Norvasc) 5 mg PO DAILY [facility] Last Admin: 06/04/17 09:25 Dose: 5 mg Chlordiazepoxide (Librium) 25 mg PO Q12 [facility] Last Admin: 06/04/17 21:27 Dose: 25 mg Diphenhydramine HCl (Benadryl) 50 mg IM Q6 PRN PRN Reason: Extrapyramidal S/S Unable PO Diphenhydramine HCl (Benadryl) 50 mg PO Q6 PRN PRN Reason: Extrapyramidal Symptoms Last Admin: 06/04/17 22:56 Dose: 50 mg Famotidine (Pepcid) 20 mg PO BID [facility] Last Admin: 06/04/17 17:23 Dose: 20 mg Folic Acid (Folic Acid) 1 mg PO DAILY [facility] Last Admin: 06/04/17 09:25 Dose: 1 mg Gabapentin (Neurontin) 100 mg PO TID [facility] Last Admin: 06/04/17 17:23 Dose: 100 mg Haloperidol (Haldol) 5 mg PO Q4 PRN PRN Reason: Agitation Last Admin: 06/03/17 23:04 Dose: 5 mg Haloperidol Lactate (Haldol) 5 mg IM Q4 PRN PRN Reason: Agitation, Unable to Take PO Ibuprofen (Motrin Tab) 600 mg PO Q6 PRN PRN Reason: Pain, moderate (4-7) Last Admin: 06/05/17 04:43 Dose: 600 mg Lidocaine (Lidoderm) 1 ea TD DAILY [facility] Last Admin: 06/04/17 09:24 Dose: 1 ea Lorazepam (Ativan) 2 mg IM Q4 PRN PRN Reason: Anxiety/Agitation,Unable PO Last Admin: 06/02/17 16:13 Dose: 2 mg Lorazepam (Ativan) 2 mg PO Q4 PRN PRN Reason: Anxiety/Agitation Magnesium Hydroxide (Milk Of Magnesia) 30 ml PO HS PRN PRN Reason: Constipation Multivitamins/Minerals (Therapeutic-M Tab) 1 tab PO DAILY [facility] Last Admin: 06/04/17 09:25 Dose: 1 tab Nicotine (Nicoderm Cq) 1 patch TD DAILY [facility] Last Admin: 06/04/17 09:23 Dose: 1 patch Promethazine HCl/Codeine (Phenergan/Codeine Oral Syrup) 5 ml PO Q6 PRN PRN Reason: Cough Last Admin: 06/04/17 15:56 Dose: 5 ml Quetiapine Fumarate (Seroquel) 100 mg PO HS [facility] Last Admin: 06/04/17 21:27 Dose: 100 mg Thiamine HCl (Vitamin B1 Tab) 100 mg PO DAILY [facility] Last Admin: 06/04/17 09:25 Dose: 100 mg - Labs Labs: 06/02/17 11:56 06/02/17 11:56 - Constitutional Appears: Well, Non-toxic, No Acute Distress - Head Exam Head Exam: ATRAUMATIC, NORMOCEPHALIC - Eye Exam Eye Exam: EOMI - ENT Exam ENT Exam: Mucous Membranes Moist - Neck Exam Neck Exam: Full ROM, Normal Inspection - Respiratory Exam Respiratory Exam: Clear to Ausculation Bilateral, NORMAL BREATHING PATTERN. absent: Wheezes - Cardiovascular Exam Cardiovascular Exam: REGULAR RHYTHM, +S1, +S2. absent: Murmur Additional comments: Mild L lower chest wall tenderness - GI/Abdominal Exam GI & Abdominal Exam: Soft, Normal Bowel Sounds. absent: Guarding, Tenderness - Extremities Exam Extremities Exam: Full ROM, Normal Inspection. absent: Tenderness - Neurological Exam Neurological Exam: Alert, Awake, Normal Gait, Oriented x3 - Psychiatric Exam Psychiatric exam: Flat Affect - Skin Skin Exam: Dry, Intact, Normal Color, Warm Assessment and Plan - Assessment and Plan (Free Text) Assessment: Assessment/Plan: 57 YO Male with multiple comorbidities is admitted for alcohol induced mood disorder. 1) Chest pain associated with cough, improving -likely 2/2 to COPD -CXR 06/02- no acute infiltrates noted -Duonebs PRN, Ventolin Q8 -start Tessalon 2) HTN -well controlled -continue Norvas 5mg PO daily -continue to monitor BPs 3) Epigastric pain, resolved -continue acid management with Pepcid -abdominal U/S negative 4) Diarrhea, resolved -chronic -stool culture final negative -continue to monitor electrolytes -pending H. pylori, anti-TTG, endomysial scr, gliadin deamidase 5) Elevated Liver enzymes -chronic elevation of liver enzymes, likely 2/2 to chronic alcohol use -asymptomatic -AST/ALT 156/96, alk phos 195 -will continue to monitor 6) Depression with suicidal ideation -defer to psych for medical management
[2017-06-05] MEDS: Lidocaine 5% Patch TD SCH (09:51)
[2017-06-05] MEDS: Multivitamin With Minerals Tab PO SCH (09:51)
--- NOTE | 2017-06-05 11:01 | PCM.PYCHPN ---
Psychiatric Progress Note - Psychiatric Progress Note Patient seen today, length of contact: pt evaluated discussed with team chart reviewed Patient Chief Complaint: I have trouble sleeping Problems Identified/Issues Discussed: pt seen in day room , reported feeling less anxious anxious mood and less depressed no changes in sleep or appetite, better level of energy and feeling less weak pt at current mental status denied any perceptual disturbances, denied any psychotic symptoms,no observed signs of pending DT.S DENIED any current suicidal or homicidal ideations alert and awake Medical Problems: pt presenting with diarrhea/ improving and left chest pain follow up by internal medicine DSM 5 Symptoms Update: alcohol induced mood disoder bipolar disorder Medication Change: Yes (decrease librium gradually) Medical Record Reviewed: Yes Mental Status Examination - Cognitive Function Orientation: Person, Place Attention: WNL Concentration: WNL Association: WNL Fund of Knowledge: Poor Decription of patient's judgement and insights: impaired insight and poor judgement - Mood Mood: Depressed, Anxious - Affect Affect: Constricted, Depressed - Speech Speech: Soft - Formal Thought Process Formal Thought Process: Circumstantial Psychotic Thoughts and Behaviors: pt denied any perceptual disturbances or psychotic symptoms at current mental status, non elicited - Suicidal Ideation Suicidal Ideation: No - Homicidal Ideation Homicidal Ideation: No Goal/Treatment Plan - Goal/Treatment Plan Need for Continued Stay: Severe depression anxiety, Discharge may exacerbated symptoms Progress Toward Problem(s) and Goals/Treatment Plan: librium 10mg q12 for symptoms and signs of alcohol withdrawal, follow up on vital signs continue neurontin 100mg tid for anxiety increase seroquel 200mg qhs with plan steven uptitrate start trazodone 50mg qhs CBT, MOTIVATIONAL AND GROUP THERAPY Estimated Date of D/C: 06/09/17
[2017-06-06 08:16] LABS: HEMOGLOBIN 13.9 g/dL (12.0-18.0); MEAN CELL VOLUME 93.4 fl (80.0-94.0); MEAN CORPUSCULAR HEMOGLOBIN 31.4 pg (27.0-31.0); MEAN CORPUSCULAR HGB CONC 33.7 g/dL (33.0-37.0); RBC 4.41 Mil/uL (4.40-5.90); RED CELL DISTRIBUTION WIDTH 14.1 % (11.5-14.5); WHITE BLOOD COUNT 5.5 K/uL (4.8-10.8)
[2017-06-06] MEDS: Multivitamin With Minerals Tab PO SCH (09:01)
[2017-06-06] MEDS: Lidocaine 5% Patch TD SCH (09:01)
[2017-06-06] MEDS: Amylase/Lipase/Protease 5,000 Units ECC PO SCH (13:59)
[2017-06-06] MEDS: Promethazine/Cod 6.25mg-10mg/5ml Syr UD PO PRN (14:00)
--- NOTE | 2017-06-06 14:09 | PCM.PYCHPN ---
Psychiatric Progress Note - Psychiatric Progress Note Patient seen today, length of contact: pt evaluated discussed with team chart reviewed Patient Chief Complaint: I still feel depressed and I have no energy Problems Identified/Issues Discussed: pt seen in day room , presenting with depressed mood and affect, reported continues to feel down discussed with pt the negative effects of alcohol on his mood and the importance of joining a rehab program on discharge pt reported improved sleep with trazodone , denied any current suicidal or homicidal ideationss no reported side effects of medications Medical Problems: pt presenting with diarrhea/ improving and left chest pain follow up by internal medicine DSM 5 Symptoms Update: alcohol induced mood disorder with depressive features alcohol use disorder bipolar disorder Medication Change: Yes (increase seroquel) Medical Record Reviewed: Yes Mental Status Examination - Cognitive Function Orientation: Person, Place Attention: WNL Concentration: WNL Association: WNL Fund of Knowledge: Poor Decription of patient's judgement and insights: impaired insight and poor judgement - Mood Mood: Depressed, Anxious - Affect Affect: Constricted, Depressed - Speech Speech: Soft - Formal Thought Process Formal Thought Process: Circumstantial Psychotic Thoughts and Behaviors: pt denied any perceptual disturbances or psychotic symptoms at current mental status, non elicited - Suicidal Ideation Suicidal Ideation: No - Homicidal Ideation Homicidal Ideation: No Goal/Treatment Plan - Goal/Treatment Plan Need for Continued Stay: Severe depression anxiety, Discharge may exacerbated symptoms Progress Toward Problem(s) and Goals/Treatment Plan: ldiscontinue librium continue with trazodone qhs and neurontin 100mg tid for anxiety increase seroquel 300mg qhs CBT, MOTIVATIONAL AND GROUP THERAPY Estimated Date of D/C: 06/09/17
[2017-06-06] MEDS: QUEtiapine 300 MG TABLET PO SCH (21:09)
[2017-06-07] MEDS: Multivitamin With Minerals Tab PO SCH (08:51)
[2017-06-07] MEDS: Amylase/Lipase/Protease 5,000 Units ECC PO SCH (08:51)
[2017-06-07] MEDS: Lidocaine 5% Patch TD SCH (08:54)
--- NOTE | 2017-06-07 14:06 | PCM.PYCHPN ---
Psychiatric Progress Note - Psychiatric Progress Note Patient seen today, length of contact: pt evaluated discussed with team chart reviewed Patient Chief Complaint: I am still weak and depressed Problems Identified/Issues Discussed: pt seen in day room reported continues to feel depressed, affect noted depressed possible alcohol withdrawal induced mood , seroquel was uptitrated yesterday pt reported improved sleep with trazodone , denied any current suicidal or homicidal ideationss no reported side effects of medications Medical Problems: pt presenting with diarrhea/ improving and left chest pain follow up by internal medicine DSM 5 Symptoms Update: alcohol induced mood disorder bipolar disorder depressed Medication Change: No Medical Record Reviewed: Yes Mental Status Examination - Cognitive Function Orientation: Person, Place Attention: WNL Concentration: WNL Association: WNL Fund of Knowledge: Poor Decription of patient's judgement and insights: impaired insight and poor judgement - Mood Mood: Depressed, Anxious - Affect Affect: Constricted, Depressed - Speech Speech: Soft - Formal Thought Process Formal Thought Process: Circumstantial Psychotic Thoughts and Behaviors: pt denied any perceptual disturbances or psychotic symptoms at current mental status, non elicited - Suicidal Ideation Suicidal Ideation: No - Homicidal Ideation Homicidal Ideation: No Goal/Treatment Plan - Goal/Treatment Plan Need for Continued Stay: Severe depression anxiety, Discharge may exacerbated symptoms Progress Toward Problem(s) and Goals/Treatment Plan: l continue with trazodone qhs and neurontin 100mg tid for anxiety continue seroquel 300mg qhs CBT, MOTIVATIONAL AND GROUP THERAPY Estimated Date of D/C: 06/09/17
[2017-06-07 15:20] LABS: BASO % 0.7 % (0.0-2.0); EOS # 0.1 K/uL (0.0-0.7); EOS % 1.8 % (0.0-4.0); HEMOGLOBIN 12.9 g/dL (12.0-18.0); LYMPH # 2.1 K/uL (1.0-4.3); LYMPH % 37.1 % (20.0-40.0); MEAN CELL VOLUME 92.4 fl (80.0-94.0); MEAN CORPUSCULAR HEMOGLOBIN 31.7 pg (27.0-31.0); MEAN CORPUSCULAR HGB CONC 34.3 g/dL (33.0-37.0); MEAN PLATELET VOLUME 8.4 fl (7.2-11.7); MONO # 0.8 K/uL (0.0-0.8); MONO % 12.9 % (0.0-10.0); NEUT # 2.8 K/uL (1.8-7.0); NEUT % 47.5 % (50.0-75.0); NRBC % 0.2 % (0.0-0.0); RBC 4.06 Mil/uL (4.40-5.90); RED CELL DISTRIBUTION WIDTH 14.1 % (11.5-14.5); WHITE BLOOD COUNT 5.8 K/uL (4.8-10.8)
[2017-06-07 15:33] LABS: BLOOD UREA NITROGEN 19 mg/dl (9-20); CALCIUM 9.5 mg/dL (8.4-10.2); GFR AFRICAN-AMERICAN > 60; GFR NON-AFRICAN AMERICAN > 60
[2017-06-07] MEDS ORDERED: Dextrose 50% SYRINGE Inj (50 ml) IV PRN (16:50)
[2017-06-07] MEDS ORDERED: Glucagon Recombinant 1 mg Inj IM PRN (16:50)
[2017-06-07] MEDS ORDERED: Insulin Lispro Mix 75/25 100 units/ml (HumaLog) 10ml SC STA (18:24)
[2017-06-07] MEDS: Insulin Regular 100 units/ml SC SCH (21:05)
[2017-06-07] MEDS: QUEtiapine 300 MG TABLET PO SCH (21:06)
[2017-06-08 06:25] VITALS: O2SAT 97
[2017-06-08 07:02] LABS: BASO # 0.1 K/uL (0.0-0.2); BASO % 0.9 % (0.0-2.0); EOS # 0.1 K/uL (0.0-0.7); EOS % 1.8 % (0.0-4.0); HEMOGLOBIN 13.5 g/dL (12.0-18.0); LYMPH # 2.5 K/uL (1.0-4.3); LYMPH % 43.4 % (20.0-40.0); MEAN CELL VOLUME 92.4 fl (80.0-94.0); MEAN CORPUSCULAR HEMOGLOBIN 31.2 pg (27.0-31.0); MEAN CORPUSCULAR HGB CONC 33.7 g/dL (33.0-37.0); MEAN PLATELET VOLUME 7.9 fl (7.2-11.7); MONO # 0.7 K/uL (0.0-0.8); MONO % 12.5 % (0.0-10.0); NEUT # 2.4 K/uL (1.8-7.0); NEUT % 41.4 % (50.0-75.0); NRBC % 0.5 % (0.0-0.0); RBC 4.31 Mil/uL (4.40-5.90); RED CELL DISTRIBUTION WIDTH 14.3 % (11.5-14.5); WHITE BLOOD COUNT 5.8 K/uL (4.8-10.8)
[2017-06-08 07:08] LABS: BLOOD UREA NITROGEN 16 mg/dl (9-20); CALCIUM 9.9 mg/dL (8.4-10.2); GFR AFRICAN-AMERICAN > 60; GFR NON-AFRICAN AMERICAN > 60; LIPASE 456 U/L (23-300)
[2017-06-08] MEDS: Lidocaine 5% Patch TD SCH (09:30)
[2017-06-08] MEDS: Multivitamin With Minerals Tab PO SCH (09:31)
--- NOTE | 2017-06-08 09:36 | CP.PCM.PN ---
Subjective - Date & Time of Evaluation Date of Evaluation: 06/08/17 Time of Evaluation: 09:34 - Subjective Subjective: Overnight pt had blood sugar of 393 and was given 8 units of humalog 75/25. Pt also endorses chills and night sweats overnight. Pt seen and examined by bedside this AM. Pt states that he is feeling better then he did last night. Endorses myalgia this AM. Continues to have occasional cough but states that his cough is better then previously. Pt also endorses occasional chest discomfort with cough, and productive cough with white mucus. Denies chest pain , dizziness, headache, dyspnea, n/v/d/c, auditory/visual changes, and remains afebrile. Objective - Vital Signs/Intake and Output Vital Signs (last 24 hours): Temp Pulse Resp BP Pulse Ox 97.2 F L 100 H 20 129/87 97 06/08/17 09:00 06/08/17 09:00 06/08/17 09:00 06/08/17 09:00 06/08/17 05:00 - Medications Medications: Current Medications Al Hydrox/Mg Hydrox/Simethicone (Maalox Plus 30 Ml) 30 ml PO Q4 PRN PRN Reason: Dyspepsia Albuterol (Ventolin Hfa 90 Mcg/Actuation (8 G)) 2 puff INH RQ8 PRN PRN Reason: Shortness of Breath Albuterol/Ipratropium (Duoneb 3 Mg/0.5 Mg (3 Ml) Ud) 3 ml INH RQ6 PRN PRN Reason: Shortness of Breath Last Admin: 06/07/17 13:42 Dose: 3 ml Amlodipine Besylate (Norvasc) 5 mg PO DAILY [facility] Last Admin: 06/07/17 08:51 Dose: 5 mg Amylase (Pancrease [id number] U) 1 unit PO DAILY [facility] Last Admin: 06/07/17 08:51 Dose: 1 unit Benzonatate (Tessalon Perles) 100 mg PO TID PRN PRN Reason: Cough Last Admin: 06/07/17 00:33 Dose: 100 mg Dextrose (Glutose 15) 0 gm PO ONCE PRN; Protocol PRN Reason: Hypoglycemia Protocol Diphenhydramine HCl (Benadryl) 50 mg IM Q6 PRN PRN Reason: Extrapyramidal S/S Unable PO Diphenhydramine HCl (Benadryl) 50 mg PO Q6 PRN PRN Reason: Extrapyramidal Symptoms Last Admin: 06/05/17 23:07 Dose: 50 mg Famotidine (Pepcid) 20 mg PO BID [facility] Last Admin: 06/07/17 17:24 Dose: 20 mg Folic Acid (Folic Acid) 1 mg PO DAILY [facility] Last Admin: 06/07/17 08:51 Dose: 1 mg Gabapentin (Neurontin) 100 mg PO TID [facility] Last Admin: 06/07/17 17:24 Dose: 100 mg Glucagon (Glucagen Diagnostic Kit) 0 mg IM STAT PRN; Protocol PRN Reason: Hypoglycemia Protocol Haloperidol (Haldol) 5 mg PO Q4 PRN PRN Reason: Agitation Last Admin: 06/07/17 00:33 Dose: 5 mg Haloperidol Lactate (Haldol) 5 mg IM Q4 PRN PRN Reason: Agitation, Unable to Take PO Ibuprofen (Motrin Tab) 600 mg PO Q6 PRN PRN Reason: Pain, moderate (4-7) Last Admin: 06/08/17 03:34 Dose: 600 mg Insulin Human Regular (Humulin R) 0 units SC ACHS [facility] PRN Reason: Protocol Last Admin: 06/07/17 21:05 Dose: Not Given Lidocaine (Lidoderm) 1 ea TD DAILY [facility] Last Admin: 06/07/17 08:54 Dose: 1 ea Lorazepam (Ativan) 2 mg IM Q4 PRN PRN Reason: Anxiety/Agitation,Unable PO Last Admin: 06/02/17 16:13 Dose: 2 mg Lorazepam (Ativan) 2 mg PO Q4 PRN PRN Reason: Anxiety/Agitation Magnesium Hydroxide (Milk Of Magnesia) 30 ml PO HS PRN PRN Reason: Constipation Multivitamins/Minerals (Therapeutic-M Tab) 1 tab PO DAILY [facility] Last Admin: 06/07/17 08:51 Dose: 1 tab Nicotine (Nicoderm Cq) 1 patch TD DAILY [facility] Last Admin: 06/07/17 08:50 Dose: 1 patch Promethazine HCl/Codeine (Phenergan/Codeine Oral Syrup) 5 ml PO Q6 PRN PRN Reason: Cough Last Admin: 06/06/17 14:00 Dose: 5 ml Quetiapine Fumarate (Seroquel) 300 mg PO HS [facility] Last Admin: 06/07/17 21:06 Dose: 300 mg Thiamine HCl (Vitamin B1 Tab) 100 mg PO DAILY [facility] Last Admin: 06/07/17 08:51 Dose: 100 mg Trazodone HCl (Desyrel) 50 mg PO HS [facility] Last Admin: 06/07/17 21:07 Dose: 50 mg - Labs Labs: 06/08/17 06:35 06/08/17 06:35 - Constitutional Appears: Non-toxic, No Acute Distress - Head Exam Head Exam: ATRAUMATIC, NORMOCEPHALIC - Eye Exam Eye Exam: EOMI, Normal appearance - ENT Exam ENT Exam: Mucous Membranes Moist - Neck Exam Neck Exam: Full ROM - Respiratory Exam Respiratory Exam: Clear to Ausculation Bilateral, NORMAL BREATHING PATTERN. absent: Wheezes - Cardiovascular Exam Cardiovascular Exam: REGULAR RHYTHM, +S1, +S2 - GI/Abdominal Exam GI & Abdominal Exam: Distended (Mild distension, no fluid wave), Soft, Normal Bowel Sounds. absent: Tenderness, Hernia Additional comments: Well healed vertical midline scar from ex-lap in the past. - Extremities Exam Extremities Exam: Full ROM, Normal Capillary Refill, Normal Inspection. absent : Pedal Edema - Back Exam Back Exam: absent: CVA tenderness (L), CVA tenderness (R) - Neurological Exam Neurological Exam: Alert, Awake, Normal Gait (slow), Oriented x3 - Psychiatric Exam Psychiatric exam: Flat Affect - Skin Skin Exam: Dry, Intact, Normal Color, Warm Assessment and Plan - Assessment and Plan (Free Text) Assessment: Assessment/Plan: 57 YO Male with multiple comorbidities is admitted for alcohol induced mood disorder. 1) Hyperglycemia, Prediabetes -sugars in high 200's and 300's -last sugar was 277 -HbA1c today 6.5 -start pt on sliding scale insulin -start Metformin 875mg PO BID -continue to monitor 2) Myalgia, chills and night sweat -pt remains afebrile, wbc 5.8 -influenza test ordered -will follow up 3) Chest pain associated with cough, improving -likely 2/2 to COPD -CXR 06/02- no acute infiltrates noted -Duonebs PRN, Ventolin Q8 -continue Tessalon 4) HTN -well controlled -continue Norvas 5mg PO daily -continue to monitor BPs 5) Elevated Liver enzymes -chronic elevation of liver enzymes, likely 2/2 to chronic alcohol use -asymptomatic -AST/ALT 156/96, alk phos 195 (06/02) -will continue to monitor 6) Depression with suicidal ideation -defer to psych for medical management
[2017-06-08] MEDS ORDERED: Amylase/Lipase/Protease 5,000 Units ECC PO SCH (10:00)
[2017-06-08] MEDS: Albuterol HFA 90 mcg/actuation (8 g) INH PRN (10:30)
[2017-06-08] MEDS: Amylase/Lipase/Protease 5,000 Units ECC PO SCH (11:01)
[2017-06-08] MEDS: Insulin Regular 100 units/ml SC SCH ×4 (11:38→21:11)
--- NOTE | 2017-06-08 13:46 | PCM.PYCHPN ---
Psychiatric Progress Note - Psychiatric Progress Note Patient seen today, length of contact: pt evaluated discussed with team chart reviewed Patient Chief Complaint: I am alright a little depressed because of my health Problems Identified/Issues Discussed: pt seen in day room reported continues to feel depressed, pt recognizes the negative impact of alcohol on his health, blood sugar noted yesterday 400 and pt currently placed on insulin sliding scale, discussed with pt starting inpatient rehab on discharge , pt agreed pt reported improved sleep with trazodone , denied any current suicidal or homicidal ideationss no reported side effects of medications Medical Problems: pt presenting with diarrhea/ improving and left chest pain follow up by internal medicine DSM 5 Symptoms Update: alcohol induced mood disorder alcohol use disorder bipolar disorder Medication Change: No Medical Record Reviewed: Yes Mental Status Examination - Cognitive Function Orientation: Person, Place Attention: WNL Concentration: WNL Association: WNL Fund of Knowledge: Poor Decription of patient's judgement and insights: impaired insight and poor judgement - Mood Mood: Depressed, Anxious - Affect Affect: Constricted, Depressed - Speech Speech: Soft - Formal Thought Process Formal Thought Process: Circumstantial Psychotic Thoughts and Behaviors: pt denied any perceptual disturbances or psychotic symptoms at current mental status, non elicited - Suicidal Ideation Suicidal Ideation: No - Homicidal Ideation Homicidal Ideation: No Goal/Treatment Plan - Goal/Treatment Plan Need for Continued Stay: Severe depression anxiety, Discharge may exacerbated symptoms Progress Toward Problem(s) and Goals/Treatment Plan: lfollow up on family practice consult for managment of high blood glucose, and manage according to recommendations continue with trazodone qhs and neurontin 100mg tid for anxiety continue seroquel 300mg qhs CBT, MOTIVATIONAL AND GROUP THERAPY Estimated Date of D/C: 06/09/17
[2017-06-08 19:32] LABS: URINE BILIRUBIN NEGATIVE (NEGATIVE); URINE BLOOD NEGATIVE (NEGATIVE); URINE CLARITY CLEAR (Clear); URINE COLOR YELLOW (YELLOW); URINE GLUCOSE (UA) >=500 mg/dL (Normal); URINE LEUKOCYTE ESTERASE NEG Leu/uL (Negative); URINE NITRATE NEGATIVE (NEGATIVE); URINE PROTEIN NEGATIVE (NEGATIVE); URINE UROBILINOGEN 0.2-1.0 mg/dL (0.2-1.0)
[2017-06-08] MEDS: QUEtiapine 300 MG TABLET PO SCH (21:09)
[2017-06-09] MEDS: Insulin Regular 100 units/ml SC SCH ×4 (08:11→21:21)
[2017-06-09] MEDS: Multivitamin With Minerals Tab PO SCH (08:57)
[2017-06-09] MEDS: Lidocaine 5% Patch TD SCH (08:58)
--- NOTE | 2017-06-09 16:05 | PCM.PYCHPN ---
Psychiatric Progress Note - Psychiatric Progress Note Patient seen today, length of contact: pt evaluated discussed with team chart reviewed Patient Chief Complaint: I am alright better today Problems Identified/Issues Discussed: pt seen in day room reported feeling better presenting with brighter affect discussed with patient joining [facility] outpatient on discharge, pt agreed denied any current suicidal or homicidal ideations denied perceptual disturbances , no reported side effects of medications Medical Problems: pt presenting with diarrhea/ improving and left chest pain follow up by internal medicine DSM 5 Symptoms Update: alcohol induced mood disorder bipolar disorder Medication Change: No Medical Record Reviewed: Yes Mental Status Examination - Cognitive Function Orientation: Person, Place Attention: WNL Concentration: WNL Association: WNL Fund of Knowledge: Poor Decription of patient's judgement and insights: impaired insight and poor judgement - Mood Mood: Depressed, Anxious - Affect Affect: Constricted, Depressed - Speech Speech: Soft - Formal Thought Process Formal Thought Process: Circumstantial Psychotic Thoughts and Behaviors: pt denied any perceptual disturbances or psychotic symptoms at current mental status, non elicited - Suicidal Ideation Suicidal Ideation: No - Homicidal Ideation Homicidal Ideation: No Goal/Treatment Plan - Goal/Treatment Plan Need for Continued Stay: Severe depression anxiety, Discharge may exacerbated symptoms Progress Toward Problem(s) and Goals/Treatment Plan: continue with trazodone qhs and neurontin 100mg tid for anxiety continue seroquel 300mg qhs CBT, MOTIVATIONAL AND GROUP THERAPY Estimated Date of D/C: 06/09/17
[2017-06-09] MEDS: QUEtiapine 300 MG TABLET PO SCH (21:04)
[2017-06-09] MEDS: Alum-Mag Hydrox-Simethicone Susp (30 mL) PO PRN (23:44)
[2017-06-10] MEDS: Alum-Mag Hydrox-Simethicone Susp (30 mL) PO PRN (05:46)
[2017-06-10] MEDS: Multivitamin With Minerals Tab PO SCH (09:26)
[2017-06-10] MEDS: Insulin Regular 100 units/ml SC SCH ×4 (09:46→21:17)
[2017-06-10] MEDS: Lidocaine 5% Patch TD SCH (09:47)
[2017-06-10] MEDS: Albuterol HFA 90 mcg/actuation (8 g) INH PRN (09:49)
--- NOTE | 2017-06-10 18:29 | PCM.PYCHPN ---
Psychiatric Progress Note - Psychiatric Progress Note Patient seen today, length of contact: pt evaluated discussed with team chart reviewed Patient Chief Complaint: was feeling depressed did not follow up when i was discharged, now i am feeling a little better with current rx. denies s/s w/d. staff report pt adherent with rx. requests to be referred to [facility]. requests to be considered for vivitrol injection at [facility] Problems Identified/Issues Discussed: alteration mood alteration in coping etoh recovery new Medical Problems: per chart Diagnostic Results: per psychiatry per medicine per nursing per social work Medication Change: No Medical Record Reviewed: Yes Consults ordered or reviewed: pt being followed by hospitalist Mental Status Examination - Cognitive Function Orientation: Person, Place Attention: WNL Concentration: WNL Association: WNL Fund of Knowledge: Poor Decription of patient's judgement and insights: impaired - Mood Mood: Depressed, Anxious - Affect Affect: Constricted, Depressed - Speech Speech: Soft - Formal Thought Process Formal Thought Process: Circumstantial - Suicidal Ideation Suicidal Ideation: No - Homicidal Ideation Homicidal Ideation: No Goal/Treatment Plan - Goal/Treatment Plan Need for Continued Stay: Severe depression anxiety, Discharge may exacerbated symptoms Progress Toward Problem(s) and Goals/Treatment Plan: inpt milieu adjust rx per status discharge planning in progress Estimated Date of D/C: 06/09/17 - Smoking Cessation Smoking Cessation Initiated: Yes
[2017-06-10] MEDS: QUEtiapine 300 MG TABLET PO SCH (21:16)
[2017-06-11] MEDS: Insulin Regular 100 units/ml SC SCH ×4 (07:52→21:15)
[2017-06-11 09:29] VITALS: RESP 20
[2017-06-11] MEDS: Multivitamin With Minerals Tab PO SCH (09:34)
[2017-06-11] MEDS: Lidocaine 5% Patch TD SCH (09:37)
--- NOTE | 2017-06-11 13:39 | PCM.BM ---
<Jeff Rush - Last Filed: 06/11/17 13:38> Treatment Plan Problems - Problems identified on initial assessmt Ineffective Impulse Control Date Initiated: 06/01/17 Time Initiated: 15:58 Assessment reference: NA Status: Active Treatment assets and liabiliti Patient Assests: adapts well, cooperative, self-reliant, ADL independent, negotiates basic needs, cognitively intact Patient Liabilities: financial problems, poor support system, substance abuse, medical problems - Milieu Protocol Maintain good personal hygiene: daily Encourage regular showers, daily Remind patient to perform daily oral care, daily Assist patient to perform ADL's Conduct patient checks and document Observation sheet: Q15 minutes Maintain personal safety: daily Educate patient to report safety concerns to staff, daily Monitor environment for contraband/sharps, every shift Educate patient to report safety concerns to staff, every shift Monitor environment for contraband/sharps Medication safety: Monitor for expected outcome, potential side effects: daily, Assess barriers to learning: daily, Assess readiness for medication education: daily Milieu Narrative: inpt milieu adjust rx per status discharge planning in progress Family Contact Family involvement: Famliy/SO not involved Family contact: Patient declines to allow family contact at present Family contact name: Pt denied. Discharge/Continuing Care - Education Needs Education Needs: Patient Medication, Patient Coping Skills, Patient Community resources, Patient Personal Hygiene/Grooming, Patient Aftercare Safety Plan - Discharge Discharge Criteria: Tolerates medication w/o severe side effects, Free of Suicidal thoughts, Ability to care for self, Reduction of target symptoms Discharge to:: Retirement - Treatment Team Participation Patient/Family/SO Statement: inpt milieu adjust rx per status discharge planning in progress Discussed with Family/SO: No Was Patient/Family/SO present at Treatment Team Meeting: Yes Treatment Plan Review - Problem Ineffective Impulse Control Date Initiated: 06/09/17 Time Initiated: 15:58 Progress toward outcomes: improved - Discharge / Continuing Care Behavioral Health Services: Outpatient therapy <Jean Pierre Delacruz - Last Filed: 06/14/17 09:39> - Diagnosis (1) Depression Status: Acute Interventions: 06/14/17 09:38 psychotherapy pharmacotherapy
--- NOTE | 2017-06-11 18:30 | PCM.PYCHPN ---
Psychiatric Progress Note - Psychiatric Progress Note Patient seen today, length of contact: pt evaluated discussed with team chart reviewed Patient Chief Complaint: reports on going difficulty sleeping, not responding to current dose of trazodone 50mg po hs, is seen about unit for meals today per notes but was observed to remain in room much of day. iwas feeling depressed did not follow up when i was discharged, now i am feeling a little better with current rx. denies s/s w/d. staff report pt adherent with rx. requests to be referred to [facility]. requests to be considered for vivitrol injection at [facility] Problems Identified/Issues Discussed: alteration mood alteration in coping etoh recovery new Medical Problems: per chart Diagnostic Results: per psychiatry per medicine per nursing per social work DSM 5 Symptoms Update: on going insomnia Medication Change: Yes (increase trazodone to 100mg po hs) Medical Record Reviewed: Yes Consults ordered or reviewed: pt being followed by hospitalist Mental Status Examination - Cognitive Function Orientation: Person, Place Attention: WNL Concentration: WNL Association: WNL Fund of Knowledge: Poor Decription of patient's judgement and insights: impaired - Mood Mood: Depressed, Anxious - Affect Affect: Constricted, Depressed - Speech Speech: Soft - Formal Thought Process Formal Thought Process: Circumstantial - Homicidal Ideation Homicidal Ideation: No Goal/Treatment Plan - Goal/Treatment Plan Need for Continued Stay: Severe depression anxiety, Discharge may exacerbated symptoms Progress Toward Problem(s) and Goals/Treatment Plan: inpt milieu adjust rx per status-will increase trazodone to 100mg po hs-review possible constipation priaprism- discharge planning in progress-treatment plan discussed with pt by yessica Estimated Date of D/C: 06/13/17 - Smoking Cessation Smoking Cessation Initiated: No Reason for not providing: pt deferred
[2017-06-11] MEDS: QUEtiapine 300 MG TABLET PO SCH (21:17)
[2017-06-12] MEDS: Multivitamin With Minerals Tab PO SCH (08:04)
[2017-06-12] MEDS: Lidocaine 5% Patch TD SCH (08:12)
[2017-06-12] MEDS: Insulin Regular 100 units/ml SC SCH ×4 (08:13→22:29)
--- NOTE | 2017-06-12 09:04 | CP.PCM.PN ---
Subjective - Date & Time of Evaluation Date of Evaluation: 06/12/17 Time of Evaluation: 09:04 - Subjective Subjective: No acute overnight events. Pt states that his cough has improved, and he no longer has myalgias or chills. Continues to endorse chest pain with cough, but well controlled with his pain mediations. Denies headache, dizziness, n/v/d/c and remains afebrile. Objective - Vital Signs/Intake and Output Vital Signs (last 24 hours): Temp Pulse Resp BP Pulse Ox 97.5 F L 98 H 20 131/79 97 06/12/17 08:32 06/12/17 08:32 06/12/17 08:32 06/12/17 08:32 06/08/17 05:00 - Medications Medications: Current Medications Al Hydrox/Mg Hydrox/Simethicone (Maalox Plus 30 Ml) 30 ml PO Q4 PRN PRN Reason: Dyspepsia Last Admin: 06/10/17 05:46 Dose: 30 ml Albuterol (Ventolin Hfa 90 Mcg/Actuation (8 G)) 2 puff INH RQ8 PRN PRN Reason: Shortness of Breath Last Admin: 06/10/17 09:49 Dose: 2 puff Albuterol/Ipratropium (Duoneb 3 Mg/0.5 Mg (3 Ml) Ud) 3 ml INH RQ6 PRN PRN Reason: Shortness of Breath Last Admin: 06/07/17 13:42 Dose: 3 ml Amlodipine Besylate (Norvasc) 5 mg PO DAILY [facility] Last Admin: 06/12/17 08:04 Dose: 5 mg Azithromycin (Zithromax) 250 mg PO DAILY [facility] PRN Reason: Protocol Stop: 06/13/17 09:01 Last Admin: 06/12/17 08:06 Dose: 250 mg Benzonatate (Tessalon Perles) 100 mg PO TID PRN PRN Reason: Cough Last Admin: 06/12/17 08:04 Dose: 100 mg Dextrose (Glutose 15) 0 gm PO ONCE PRN; Protocol PRN Reason: Hypoglycemia Protocol Diphenhydramine HCl (Benadryl) 50 mg IM Q6 PRN PRN Reason: Extrapyramidal S/S Unable PO Diphenhydramine HCl (Benadryl) 50 mg PO Q6 PRN PRN Reason: Extrapyramidal Symptoms Last Admin: 06/10/17 23:36 Dose: 50 mg Diphenhydramine HCl (Benadryl) 50 mg PO HS PRN PRN Reason: Sleep Last Admin: 06/12/17 00:04 Dose: 50 mg Famotidine (Pepcid) 20 mg PO BID [facility] Last Admin: 06/12/17 08:04 Dose: 20 mg Folic Acid (Folic Acid) 1 mg PO DAILY [facility] Last Admin: 06/12/17 08:04 Dose: 1 mg Gabapentin (Neurontin) 100 mg PO TID [facility] Last Admin: 06/12/17 08:04 Dose: 100 mg Glucagon (Glucagen Diagnostic Kit) 0 mg IM STAT PRN; Protocol PRN Reason: Hypoglycemia Protocol Haloperidol (Haldol) 5 mg PO Q4 PRN PRN Reason: Agitation Last Admin: 06/12/17 00:03 Dose: 5 mg Haloperidol Lactate (Haldol) 5 mg IM Q4 PRN PRN Reason: Agitation, Unable to Take PO Ibuprofen (Motrin Tab) 600 mg PO Q6 PRN PRN Reason: Pain, moderate (4-7) Last Admin: 06/12/17 06:58 Dose: 600 mg Insulin Human Regular (Humulin R) 0 units SC ACHS [facility] PRN Reason: Protocol Last Admin: 06/12/17 08:13 Dose: 2 u Ketoconazole (Nizoral) 1 applic TOP BID [facility] Last Admin: 06/12/17 08:06 Dose: 1 u Lidocaine (Lidoderm) 1 ea TD DAILY [facility] Last Admin: 06/12/17 08:12 Dose: 1 ea Lorazepam (Ativan) 2 mg IM Q4 PRN PRN Reason: Anxiety/Agitation,Unable PO Last Admin: 06/02/17 16:13 Dose: 2 mg Lorazepam (Ativan) 2 mg PO Q4 PRN PRN Reason: Anxiety/Agitation Magnesium Hydroxide (Milk Of Magnesia) 30 ml PO HS PRN PRN Reason: Constipation Metformin HCl (Glucophage) 850 mg PO DAILY [facility] Last Admin: 06/12/17 08:04 Dose: 850 mg Multivitamins/Minerals (Therapeutic-M Tab) 1 tab PO DAILY [facility] Last Admin: 06/12/17 08:04 Dose: 1 tab Nicotine (Nicoderm Cq) 1 patch TD DAILY [facility] Last Admin: 06/12/17 08:04 Dose: 1 patch Quetiapine Fumarate (Seroquel) 300 mg PO HS [facility] Last Admin: 06/11/17 21:17 Dose: 300 mg Thiamine HCl (Vitamin B1 Tab) 100 mg PO DAILY [facility] Last Admin: 06/12/17 08:04 Dose: 100 mg Trazodone HCl (Desyrel) 100 mg PO [facility] Last Admin: 06/11/17 21:13 Dose: 100 mg - Labs Labs: 06/08/17 06:35 06/08/17 06:35 - Constitutional Appears: No Acute Distress - Head Exam Head Exam: ATRAUMATIC, NORMAL INSPECTION - Eye Exam Eye Exam: EOMI - ENT Exam ENT Exam: Mucous Membranes Moist - Neck Exam Neck Exam: Full ROM - Respiratory Exam Respiratory Exam: Clear to Ausculation Bilateral, NORMAL BREATHING PATTERN. absent: Wheezes - Cardiovascular Exam Cardiovascular Exam: REGULAR RHYTHM, +S1, +S2 - GI/Abdominal Exam GI & Abdominal Exam: Soft, Normal Bowel Sounds. absent: Tenderness - Extremities Exam Extremities Exam: Full ROM, Normal Inspection - Back Exam Back Exam: NORMAL INSPECTION. absent: CVA tenderness (L), CVA tenderness (R) - Neurological Exam Neurological Exam: Alert, Awake, Normal Gait, Oriented x3 - Psychiatric Exam Psychiatric exam: Normal Affect, Normal Mood - Skin Skin Exam: Dry, Intact, Normal Color, Warm Assessment and Plan - Assessment and Plan (Free Text) Assessment: Assessment/Plan: 57 YO Male with multiple co-morbidities is admitted for alcohol induced mood disorder. 1) Hyperglycemia, Prediabetes -sugars improving, highest in the last 24 hrs 216 -HbA1c today 6.5 -continue sliding scale insulin -continue Metformin 875mg PO BID -Accu checks 2) Chest pain associated with cough -improving -hx of fx in that area of pain/discomfort -CXR 06/02- no acute infiltrates noted -Duonebs PRN, Ventolin Q8 -continue Tessalon -Ibuprofen and Lidocaine patch for pain 3) Myalgia, chills and night sweat -resolved -pt remains afebrile, wbc 5.8 -influenza test ordered-blood hemolyzed 4) HTN -well controlled -continue Norvas 5mg PO daily -continue to monitor BPs 5) Elevated Liver enzymes -chronic elevation of liver enzymes, likely 2/2 to chronic alcohol use -asymptomatic -AST/ALT 156/96, alk phos 195 (12/29) -will continue to monitor 6) Depression with suicidal ideation -defer to psych for medical management -Psych, potential dispo on 06/13
--- NOTE | 2017-06-12 16:53 | PCM.PYCHPN ---
Psychiatric Progress Note - Psychiatric Progress Note Patient seen today, length of contact: pt evaluated discussed with team chart reviewed Patient Chief Complaint: I am alright Problems Identified/Issues Discussed: pt seen in day room reported feeling better, reported better , presenting with brighter affect, ikproved level of energy discussed with patient joining [facility] outpatient on discharge, pt agreed denied any current suicidal or homicidal ideations denied perceptual disturbances , no reported side effects of medications Medical Problems: pt presenting with diarrhea/ improving and left chest pain follow up by internal medicine DSM 5 Symptoms Update: alcohol induced mood disorder with depressive features Medication Change: No (increase trazodone to 100mg po hs) Medical Record Reviewed: Yes Mental Status Examination - Cognitive Function Orientation: Person, Place Attention: WNL Concentration: WNL Association: WNL Fund of Knowledge: Poor - Mood Mood: Neutral - Affect Affect: Constricted, Depressed - Speech Speech: Appropriate, Soft - Formal Thought Process Formal Thought Process: Circumstantial Psychotic Thoughts and Behaviors: pt denied perceptual disturbances, non elicited - Suicidal Ideation Suicidal Ideation: No - Homicidal Ideation Homicidal Ideation: No Goal/Treatment Plan - Goal/Treatment Plan Need for Continued Stay: Severe depression anxiety, Discharge may exacerbated symptoms Progress Toward Problem(s) and Goals/Treatment Plan: continue with trazodone qhs and neurontin 100mg tid for anxiety continue seroquel 300mg qhs CBT, MOTIVATIONAL AND GROUP THERAPY Estimated Date of D/C: 06/13/17
[2017-06-12] MEDS: QUEtiapine 300 MG TABLET PO SCH (21:16)
[2017-06-13] MEDS: Multivitamin With Minerals Tab PO SCH (09:28)
[2017-06-13] MEDS: Insulin Regular 100 units/ml SC SCH ×4 (09:31→21:04)
[2017-06-13] MEDS: Lidocaine 5% Patch TD SCH (09:40)
--- NOTE | 2017-06-13 14:16 | PCM.PYCHPN ---
Psychiatric Progress Note - Psychiatric Progress Note Patient seen today, length of contact: pt evaluated discussed with team chart reviewed Patient Chief Complaint: I feel better Problems Identified/Issues Discussed: pt seen in day room reported feeling better, reported better mood and presenting with brighter affect, seen on unit interacting with other patient s and attending groups, denied any current suicidal or homicidal ideations denied perceptual disturbances , no reported side effects of medications Medical Problems: pt presenting with diarrhea/ improving and left chest pain follow up by internal medicine Medication Change: No (increase trazodone to 100mg po hs) Medical Record Reviewed: Yes Mental Status Examination - Cognitive Function Orientation: Person, Place Attention: WNL Concentration: WNL Association: WNL Fund of Knowledge: Poor - Mood Mood: Neutral - Affect Affect: Constricted, Depressed - Speech Speech: Appropriate, Soft - Formal Thought Process Formal Thought Process: Circumstantial Psychotic Thoughts and Behaviors: pt denied perceptual disturbances, non elicited - Suicidal Ideation Suicidal Ideation: No - Homicidal Ideation Homicidal Ideation: No Goal/Treatment Plan - Goal/Treatment Plan Need for Continued Stay: Severe depression anxiety, Discharge may exacerbated symptoms Progress Toward Problem(s) and Goals/Treatment Plan: continue with trazodone qhs and neurontin 100mg tid for anxiety continue seroquel 300mg qhs CBT, MOTIVATIONAL AND GROUP THERAPY Estimated Date of D/C: 06/13/17
[2017-06-13 16:13] VITALS: TEMP 97.5
[2017-06-13] MEDS: Albuterol HFA 90 mcg/actuation (8 g) INH PRN (18:04)
[2017-06-13] MEDS: QUEtiapine 300 MG TABLET PO SCH (21:05)
[2017-06-14] MEDS: Insulin Regular 100 units/ml SC SCH (08:42)
[2017-06-14] MEDS: Multivitamin With Minerals Tab PO SCH (08:42)
[2017-06-14] MEDS: Lidocaine 5% Patch TD SCH (08:43)
[2017-06-14 08:47] VITALS: BP 136/82; PULSE 100
--- NOTE | 2017-06-14 13:46 | PCM.PYCHDC ---
Mental Status Examination - Mental Status Examination Orientation: Person, Place, Situation Memory: Intact Mood: Neutral Affect: Broad Speech: Appropriate Attention: WNL Concentration: WNL Association: WNL Fund of Knowledge: WNL Formal Thought Process: No Impairment Description of patient's judgement and insight: impaired insight and poor judgement Psychotic Thoughts and Behaviors: pt denied perceptual disturbances, non elicited Suicidal Ideation: No Current Homicidal Ideation?: No Discharge Summary - Discharge Note Reason for Hospitalization: pt with previous diagnosis of alcohol use disorder, bipolar depression, recently discharged from tis facility non compliant with follow up recently had conflicts with friends, started using alcohol, presented to the ER with depressed mood, pt also had chest and abdominal pain, was admitted to medicine and on medical clearence transferred to psychiatry for further stabilization pt reported feeling depressed and anxious denied any current suicidal or homicidal ideations denie perceptual disturbances Laboratory Data: Abnormal Lab Results 06/13/17 06/13/17 06/14/17 16:55 20:42 06:44 POC Glucose (mg/dL) 130 H 171 H 231 H Consultations:: List each consultation separately and include: 1. Reason for request. 2. Findings. 3. Follow-up Summary of Hospital Course include:: 1. Description of specific treatment plan utilized for patients during their course of treatmen. 2. Summarize the time- course for resolution of acute symptoms and/or regressed behaviors. 3. Describe issues identified and worked on during hospitalization. 4. Describe medication utilized. 5. Describe medical problems identified and treated. 6. Reassessment of suicide risk Summary of Hospital Course: pt ON ADMISSION WAS PLACED ON LIBRIUM FOR SYMPTOMS AND SIGNS OF ALCOHOL WITHDRAWAL, PT WAS ALSO PLACED ON NEURONTIN FOR ANXIETY AND FOR PAIN PT WAS STARTED ON SEROQUEL FOR DEPRESSION, IT WAS UPTITRATED TO 300MG NO REPORTED SIDE EFFECTS OF MEDICATIONS MOTIVATIONAL AND GROUP THERAPY WERE PROVIDED ON DISCHARGE PT MENTAL STATUS WAS STABLE, DENIED SUICIDAL OR HOMICIDAL IDEATIONS DENIED PERCEPTUAL DISTURBANCES PT WAS REFERRED TO OUTPATIENT [facility] - Diagnosis (1) Depression Current Visit: Yes Status: Acute - Final Diagnosis (DSM 5) Condition upon Discharge: GOOD Disposition: HOME/ ROUTINE Follow-up Treatment Plan: continue with trazodone qhs and neurontin 100mg tid for anxiety continue seroquel 300mg qhs CBT, MOTIVATIONAL AND GROUP THERAPY Prescriptions/Medication Reconciliation: Gabapentin [Neurontin] 100 mg PO TID 30 Days #90 cap metFORMIN [glucOPHAGE] 850 mg PO DAILY #90 tab Multimineral/Multivitamin [Therapeutic-M Tab] 1 tab PO DAILY 30 Days #30 tab QUEtiapine [SEROquel] 300 mg PO HS 30 Days #30 tab Thiamine [Vitamin B1 Tab] 100 mg PO DAILY 30 Days #30 tab traZODone [Desyrel] 100 mg PO HS 30 Days #30 tab - Antipsychotic Medications Pt discharged on 2 or more routine antipsychotic medications: No
== END 2017-06-14 13:49 | disposition home or self-care (01) | DRG 750 ==
LOC: H.PSYCH 14:45
PROVIDERS: ADMIT Psychiatry & Neurology Psychiatry; ATTEND Psychiatry & Neurology Psychiatry
PROC: GZHZZZZ Group Psychotherapy (ICD-10-PCS; principal; 2017-06-01)
PROC: HZ52ZZZ Individual Psychotherapy for Substance Abuse Treatment, Cognitive-Behavioral (ICD-10-PCS; 2017-06-01)
PROC: HZ57ZZZ Individual Psychotherapy for Substance Abuse Treatment, Motivational Enhancement (ICD-10-PCS; 2017-06-01)
DX: F10.239 Alcohol dependence with withdrawal, unspecified (principal); J44.9 Chronic obstructive pulmonary disease, unspecified; R45.851 Suicidal ideations; F31.9 Bipolar disorder, unspecified; F10.24 Alcohol dependence with alcohol-induced mood disorder; I10 Essential (primary) hypertension; Z91.19 Patient's noncompliance with other medical treatment and regimen; K29.70 Gastritis, unspecified, without bleeding; R73.9 Hyperglycemia, unspecified; R73.03 Prediabetes; F41.9 Anxiety disorder, unspecified; R10.13 Epigastric pain; R19.7 Diarrhea, unspecified; R74.8 Abnormal levels of other serum enzymes; G47.00 Insomnia, unspecified; K21.9 Gastro-esophageal reflux disease without esophagitis; E78.5 Hyperlipidemia, unspecified; G89.29 Other chronic pain; F17.200 Nicotine dependence, unspecified, uncomplicated; R07.9 Chest pain, unspecified; E78.00 Pure hypercholesterolemia, unspecified; Y90.9 Presence of alcohol in blood, level not specified

== ENCOUNTER 2017-06-15 19:20 | Emergency (ER) | payer OTHER ==
[2017-06-15 19:20] VITALS: BMI 29.9
[2017-06-15 19:32] VITALS: BP 147/87; PULSE 99; RESP 16; TEMP 99.1; O2SAT 97
--- NOTE | 2017-06-15 20:44 | ED PDOC ---
HPI: Psych/Substance Abuse Time Seen by Provider: 06/15/17 19:59 Chief Complaint (Nursing): Psychiatric Evaluation Chief Complaint (Provider): Psychiatric Evaluation ED Caveat: Intoxicated History Per: Patient History/Exam Limitations: intoxication Onset/Duration Of Symptoms: Mins (prior to arrival) Current Symptoms Are (Timing): Still Present Additional Complaint(s): 57 year old male, well-known to emergency department, presents to the ED with a complaint of hearing voices telling him to hurt others prior to arrival. Denied any suicidal ideation. Patient admitted to drinking tonight and also reported hurting his right hand 1 week ago. PMD: none provided Past Medical History Reviewed: Historical Data, Nursing Documentation, Vital Signs Vital Signs: Last Vital Signs Temp 99.1 F 06/15/17 19:28 Pulse 99 H 06/15/17 19:28 Resp 16 06/15/17 19:28 BP 147/87 06/15/17 19:28 Pulse Ox 97 06/15/17 19:28 - Medical History PMH: Anemia, Anxiety, Asthma, Back Problems, Bipolar Disorder, COPD, Depression , Gastritis (secondary to ETOH), GERD, Hypercholesterolemia, Pancreatitis ( secondary to ETOH), Schizophrenia, Seizures (secondary to ETOH withdrawal), Chronic Pain (low back pain ) Denies: Alzheimer's Disease, Atrial Fibrillation, Bronchitis, Cardia Arrhythmia, CHF, Dementia, Diabetes, Emphysema, Hepatitis, HIV, HTN, Migraine, Mitral Valve Prolapse, Multiple Sclerosis, Parkinson's Disease, Peripheral Edema , Pneumonia, Pulmonary Embolism, Chronic Kidney Disease, Sexually Transmitted Disease, Sleep Apnea - Surgical History Surgical History: Back Surgery Denies: Pacemaker - Family History Family History: States: Unknown Family Hx, Diabetes - Immunization History Hx Tetanus Toxoid Vaccination: Yes (As per patient, TDaP uptodate ( about 3 years ago)) Hx Influenza Vaccination: No Hx Pneumococcal Vaccination: No - Home Medications Home Medications: Ambulatory Orders Medication Instructions Recorded amLODIPine [Norvasc] 5 mg PO DAILY tab 06/01/17 Albuterol HFA [Ventolin HFA 90 2 puff INH RQ8 PRN inhaler 06/14/17 mcg/actuation (8 g)] Albuterol/Ipratropium [Duoneb 3 3 ml INH RQ6 PRN neb 06/14/17 mg/0.5 mg (3 ml) UD] Benzonatate [Tessalon Perles] 100 mg PO TID PRN sgl 06/14/17 Dextrose Oral [Glutose 15] 0 gm PO ONCE PRN tube 06/14/17 Famotidine [Pepcid] 20 mg PO BID #0 tab 06/14/17 Folic Acid 1 mg PO DAILY tab 06/14/17 Gabapentin [Neurontin] 100 mg PO TID 30 Days #90 cap 06/14/17 Glucagon [Glucagen Diagnostic Kit] 0 mg IM STAT PRN vial 06/14/17 Insulin Human Regular [HumuLIN R] 0 units SC ACHS ml 06/14/17 Multimineral/Multivitamin 1 tab PO DAILY 30 Days #30 tab 06/14/17 [Therapeutic-M Tab] QUEtiapine [SEROquel] 300 mg PO HS 30 Days #30 tab 06/14/17 Thiamine [Vitamin B1 Tab] 100 mg PO DAILY 30 Days #30 tab 06/14/17 amLODIPine [Norvasc] 5 mg PO DAILY #0 tab 06/14/17 metFORMIN [glucOPHAGE] 850 mg PO DAILY tab 06/14/17 metFORMIN [glucOPHAGE] 850 mg PO DAILY #90 tab 06/14/17 traZODone [Desyrel] 100 mg PO HS 30 Days #30 tab 06/14/17 - Allergies Allergies/Adverse Reactions: Allergies Allergy/AdvReac Type Severity Reaction Status Date / Time No Known Allergies Allergy Verified 05/30/17 04:17 Review of Systems ROS Statement: Except As Marked, All Systems Reviewed And Found Negative Musculoskeletal: Positive for: Hand Pain (right-sided) Psych: Positive for: Psychosis (hearing voices). Negative for: Suicidal ideation Physical Exam - Reviewed Nursing Documentation Reviewed: Yes Vital Signs Reviewed: Yes - Physical Exam Appears: Positive for: Well, Non-toxic, No Acute Distress Head Exam: Positive for: ATRAUMATIC, NORMAL INSPECTION, NORMOCEPHALIC Skin: Positive for: Normal Color Eye Exam: Positive for: Normal appearance ENT: Positive for: Normal ENT Inspection Neck: Positive for: Normal Cardiovascular/Chest: Positive for: Regular Rate, Rhythm, Chest Non Tender Respiratory: Positive for: Normal Breath Sounds, Decreased Breath Sounds. Negative for: Wheezing, Respiratory Distress Gastrointestinal/Abdominal: Positive for: Normal Exam, Soft. Negative for: Tenderness Extremity: Positive for: Normal ROM (right hand), Swelling (base of right 5th metacarpals). Negative for: Tenderness (right hand) Neurologic/Psych: Positive for: Alert, Mood/Affect (intoxicated), Other (right hand neurovascularly intact with normal sensations). Negative for: Oriented, Motor/Sensory Deficits - Laboratory Results Result Diagrams: 06/15/17 21:37 06/15/17 21:37 - ECG O2 Sat by Pulse Oximetry: 97 (RA) Pulse Ox Interpretation: Normal Medical Decision Making Medical Decision Making: Initial Impression: ETOH abuse Initial Plan: * Acetaminophen * Alcohol serum * BMP * Drug screen, urine * Salicylate * CBC * Xray hand (right) * Urinalysis Cleared by crisis evaluation. Diagnosed with alcohol use disorder by Dr. Mcnulty. Patient is medically stable and requires no further treatment in the ED at this time. He is aware of diagnosis. All questions answered. Will be discharged home. Return to ED if symptoms persist or worsen. Scribe Attestation: Documented by Lynette Perez, acting as a scribe for Anthony Cuenca MD. Provider Scribe Attestation: All medical record entries made by the Scribe were at my direction and personally dictated by me. I have reviewed the chart and agree that the record accurately reflects my personal performance of the history, physical exam, medical decision making, and the department course for this patient. I have also personally directed, reviewed, and agree with the discharge instructions and disposition. Disposition - Clinical Impression Clinical Impression: Alcohol use disorder - Patient ED Disposition Is Patient to be Admitted: No - Disposition Referrals: Alcoholics Anonymous [Outside] Community Mental Health [Outside] Disposition: Routine/Home Disposition Time: 23:38 Condition: STABLE Instructions: Abuse of Alcohol (ED) Forms: [employer] (Czech)
[2017-06-15 21:46] LABS: BASO # 0.2 K/uL (0.0-0.2); BASO % 1.7 % (0.0-2.0); EOS # 0.2 K/uL (0.0-0.7); EOS % 2.2 % (0.0-4.0); HEMOGLOBIN 13.2 g/dL (12.0-18.0); LYMPH # 3.8 K/uL (1.0-4.3); MEAN CELL VOLUME 92.7 fl (80.0-94.0); MEAN CORPUSCULAR HEMOGLOBIN 30.3 pg (27.0-31.0); MEAN CORPUSCULAR HGB CONC 32.7 g/dL (33.0-37.0); MEAN PLATELET VOLUME 8.6 fl (7.2-11.7); MONO # 0.5 K/uL (0.0-0.8); MONO % 5.6 % (0.0-10.0); NEUT # 5.2 K/uL (1.8-7.0); NEUT % 52.5 % (50.0-75.0); RBC 4.37 Mil/uL (4.40-5.90); RED CELL DISTRIBUTION WIDTH 14.6 % (11.5-14.5); WHITE BLOOD COUNT 9.9 K/uL (4.8-10.8)
[2017-06-15 21:58] LABS: SQUAMOUS EPITHIAL < 1 /hpf (0-5); URINE BACTERIA RARE (<OCC); URINE BILIRUBIN NEGATIVE (NEGATIVE); URINE BLOOD NEGATIVE (NEGATIVE); URINE CLARITY SLIGHTY-CLOUDY (Clear); URINE COLOR YELLOW (YELLOW); URINE GLUCOSE (UA) NEG (Normal); URINE HYALINE CAST 0-2 /hpf (0-2); URINE LEUKOCYTE ESTERASE NEG Leu/uL (Negative); URINE NITRATE NEGATIVE (NEGATIVE); URINE PROTEIN NEGATIVE (NEGATIVE); URINE UROBILINOGEN 0.2-1.0 mg/dL (0.2-1.0)
[2017-06-15 22:01] LABS: ACETAMINOPHEN < 10.0 ug/ml (10.0-30.0); SALICYLATE < 1.0 mg/dl
[2017-06-15 22:02] LABS: BARBITURATES, UR NEGATIVE (NEGATIVE); BLOOD UREA NITROGEN 16 mg/dl (9-20); CALCIUM 9.4 mg/dL (8.4-10.2); GFR AFRICAN-AMERICAN > 60; GFR NON-AFRICAN AMERICAN > 60; OPIATES, UR NEGATIVE (NEGATIVE); PHENCYCLIDINE, UR NEGATIVE (NEGATIVE)
[2017-06-15 22:10] LABS: BENZODIAZEPINES, UR POSITIVE (NEGATIVE)
--- NOTE | 2017-06-16 07:39 | RAD ---
PROCEDURE: Right Hand Radiographs. HISTORY: swelling, hx of recent fracture COMPARISON: Right hand radiographs 05/26/2017. FINDINGS: BONES: A comminuted, impacted, articular fracture of the base of the proximal phalanx right small digit is reiterated and does not appear significantly changed in the interval. No interval new fracture appreciated throughout the right hand. JOINTS: No dislocation appreciated. No osteoarthritic changes. SOFT TISSUES: Limited local soft tissue edema is seen related to the fracture site once again. OTHER FINDINGS: None. IMPRESSION: No interval change in a proximal phalangeal comminuted articular fracture of the base of the proximal phalanx right small finger as discussed above.
== END 2017-06-16 00:22 | disposition home or self-care (01) ==
LOC: H.ER 19:20
DX: F10.129 Alcohol abuse with intoxication, unspecified (principal); M79.641 Pain in right hand; F20.9 Schizophrenia, unspecified; E78.00 Pure hypercholesterolemia, unspecified; F31.9 Bipolar disorder, unspecified; F41.9 Anxiety disorder, unspecified; Z79.84 Long term (current) use of oral hypoglycemic drugs; Z87.19 Personal history of other diseases of the digestive system; K85.90 Acute pancreatitis without necrosis or infection, unspecified

== ENCOUNTER 2017-06-20 14:30 | Emergency (ER) | payer OTHER ==
[2017-06-20 14:30] VITALS: BMI 29.9
--- NOTE | 2017-06-20 17:11 | ED PDOC ---
HPI: Psych/Substance Abuse Time Seen by Provider: 06/20/17 14:45 Chief Complaint (Nursing): Psychiatric Evaluation Chief Complaint (Provider): Psychiatric Evaluation History Per: Patient History/Exam Limitations: no limitations Onset/Duration Of Symptoms: Mins (prior to arrival) Current Symptoms Are (Timing): Still Present Additional Complaint(s): 57 year old male with previous medical history of bipolar disorder and schizophrenia, who presents to the emergency department with a complaint of auditory hallucination prior to arrival. Patient admits to drinking alcohol today. Denied any suicidal ideation or bodily trauma. PMD: none provided Past Medical History Reviewed: Historical Data, Nursing Documentation, Vital Signs Vital Signs: Last Vital Signs Temp 98.0 F 06/20/17 14:35 Pulse 112 H 06/20/17 14:35 Resp 16 06/20/17 14:35 BP 124/76 06/20/17 14:35 Pulse Ox 99 06/20/17 14:35 - Medical History PMH: Anemia, Anxiety, Asthma, Back Problems, Bipolar Disorder, COPD, Depression , Gastritis (secondary to ETOH), GERD, Hypercholesterolemia, Pancreatitis ( secondary to ETOH), Schizophrenia, Seizures (secondary to ETOH withdrawal), Chronic Pain (low back pain ) Denies: Alzheimer's Disease, Atrial Fibrillation, Bronchitis, Cardia Arrhythmia, CHF, Dementia, Diabetes, Emphysema, Hepatitis, HIV, HTN, Migraine, Mitral Valve Prolapse, Multiple Sclerosis, Parkinson's Disease, Peripheral Edema , Pneumonia, Pulmonary Embolism, Chronic Kidney Disease, Sexually Transmitted Disease, Sleep Apnea - Surgical History Surgical History: Back Surgery Denies: Pacemaker - Family History Family History: States: Unknown Family Hx, Diabetes - Social History Current smoker - smoking cessation education provided: Yes Alcohol: > 2 Drinks/Day Drugs: Denies - Immunization History Hx Tetanus Toxoid Vaccination: Yes (As per patient, TDaP uptodate ( about 3 years ago)) Hx Influenza Vaccination: No Hx Pneumococcal Vaccination: No - Home Medications Home Medications: Ambulatory Orders Medication Instructions Recorded amLODIPine [Norvasc] 5 mg PO DAILY tab 06/01/17 Albuterol HFA [Ventolin HFA 90 2 puff INH RQ8 PRN inhaler 06/14/17 mcg/actuation (8 g)] Albuterol/Ipratropium [Duoneb 3 3 ml INH RQ6 PRN neb 06/14/17 mg/0.5 mg (3 ml) UD] Benzonatate [Tessalon Perles] 100 mg PO TID PRN sgl 06/14/17 Dextrose Oral [Glutose 15] 0 gm PO ONCE PRN tube 06/14/17 Famotidine [Pepcid] 20 mg PO BID #0 tab 06/14/17 Folic Acid 1 mg PO DAILY tab 06/14/17 Gabapentin [Neurontin] 100 mg PO TID 30 Days #90 cap 06/14/17 Glucagon [Glucagen Diagnostic Kit] 0 mg IM STAT PRN vial 06/14/17 Insulin Human Regular [HumuLIN R] 0 units SC ACHS ml 06/14/17 Multimineral/Multivitamin 1 tab PO DAILY 30 Days #30 tab 06/14/17 [Therapeutic-M Tab] QUEtiapine [SEROquel] 300 mg PO HS 30 Days #30 tab 06/14/17 Thiamine [Vitamin B1 Tab] 100 mg PO DAILY 30 Days #30 tab 06/14/17 amLODIPine [Norvasc] 5 mg PO DAILY #0 tab 06/14/17 metFORMIN [glucOPHAGE] 850 mg PO DAILY tab 06/14/17 metFORMIN [glucOPHAGE] 850 mg PO DAILY #90 tab 06/14/17 traZODone [Desyrel] 100 mg PO HS 30 Days #30 tab 06/14/17 - Allergies Allergies/Adverse Reactions: Allergies Allergy/AdvReac Type Severity Reaction Status Date / Time No Known Allergies Allergy Verified 05/30/17 04:17 Review of Systems ROS Statement: Except As Marked, All Systems Reviewed And Found Negative Musculoskeletal: Negative for: Other (bodily trauma) Psych: Positive for: Other (auditory hallucination). Negative for: Suicidal ideation Physical Exam - Reviewed Nursing Documentation Reviewed: Yes Vital Signs Reviewed: Yes - Physical Exam Appears: Positive for: Well, Non-toxic, No Acute Distress Head Exam: Positive for: ATRAUMATIC, NORMAL INSPECTION, NORMOCEPHALIC Skin: Positive for: Normal Color Cardiovascular/Chest: Positive for: Regular Rate, Rhythm Respiratory: Positive for: Normal Breath Sounds. Negative for: Decreased Breath Sounds, Wheezing, Respiratory Distress Gastrointestinal/Abdominal: Positive for: Soft. Negative for: Tenderness Neurologic/Psych: Positive for: Alert (x3), Mood/Affect (intoxicated). Negative for: Motor/Sensory Deficits - ECG O2 Sat by Pulse Oximetry: 99 (RA) Pulse Ox Interpretation: Normal Medical Decision Making Medical Decision Making: Initial Impression: Psychiatric evaluation after sober Initial Plan: * Alcohol serum Scribe Attestation: Documented by Lynette Perez, acting as a scribe for Dneae Chun MD. Provider Scribe Attestation: All medical record entries made by the Scribe were at my direction and personally dictated by me. I have reviewed the chart and agree that the record accurately reflects my personal performance of the history, physical exam, medical decision making, and the department course for this patient. I have also personally directed, reviewed, and agree with the discharge instructions and disposition. Disposition - Clinical Impression Clinical Impression: Schizo affective schizophrenia - Patient ED Disposition Is Patient to be Admitted: Transfer of Care - Disposition Disposition: Transfer of Care Disposition Time: 18:53 Condition: STABLE Forms: [employer] (Albanian) Patient Signed Over To: Alejandro Barrera
[2017-06-20] MEDS ORDERED: Sodium Chloride 0.9% 1,000 ML IV STA (18:54)
--- NOTE | 2017-06-20 19:12 | ED PDOC ---
- ECG O2 Sat by Pulse Oximetry: 99 (RA) Medical Decision Making Medical Decision Making: Time: 1899 --Patient was endorsed to provider by Dr. Denae Chun. Pending crisis evaluation. Time: 1709 --Upon crisis evaluation, patient is medically stable and requires no further treatment in the ED at this time. Patient will be discharged home. Counseling was provided and all questions were answered regarding diagnosis. There is agreement to discharge plan. Return if symptoms persist or worsen. Clinical Impression: Alcohol intoxication Scribe Attestation: Documented by Lynette Perez, acting as a scribe for Alejandro Barrera MD. Provider Scribe Attestation: All medical record entries made by the Scribe were at my direction and personally dictated by me. I have reviewed the chart and agree that the record accurately reflects my personal performance of the history, physical exam, medical decision making, and the department course for this patient. I have also personally directed, reviewed, and agree with the discharge instructions and disposition. Disposition - Clinical Impression Clinical Impression: Alcohol abuse with alcohol-induced mood disorder - POA Present On Arrival: None - Disposition Disposition: Routine/Home Disposition Time: 19:00 Condition: STABLE Instructions: Abuse of Alcohol (ED) Forms: [employer] (Danish)
[2017-06-20 19:21] VITALS: BP 119/76; PULSE 100; RESP 21; TEMP 98.7
[2017-06-21 04:30] VITALS: O2SAT 99
== END 2017-06-20 19:25 | disposition home or self-care (01) ==
LOC: H.ER 14:30
DX: F25.9 Schizoaffective disorder, unspecified (principal); F17.200 Nicotine dependence, unspecified, uncomplicated; Z86.59 Personal history of other mental and behavioral disorders; J44.9 Chronic obstructive pulmonary disease, unspecified; Z87.19 Personal history of other diseases of the digestive system; E78.00 Pure hypercholesterolemia, unspecified

== ENCOUNTER 2017-06-21 00:33 | Emergency (ER) | payer OTHER ==
[2017-06-21 00:33] VITALS: BMI 29.9
[2017-06-21 00:57] VITALS: BP 139/87; PULSE 64; RESP 16; TEMP 97.7; O2SAT 95
== END 2017-06-21 02:25 | disposition home or self-care (01) ==
LOC: H.ER 00:33
DX: Z02.89 Encounter for other administrative examinations (principal)

== ENCOUNTER 2017-06-21 15:29 | Emergency (ER) | payer OTHER ==
[2017-06-21 15:29] VITALS: BMI 29.9
[2017-06-21 16:27] VITALS: BP 142/84; PULSE 84; RESP 16; TEMP 98.2; O2SAT 98
== END 2017-06-21 16:35 | disposition left against medical advice (07) ==
LOC: H.ER 15:29
DX: Z02.89 Encounter for other administrative examinations (principal)

== ENCOUNTER 2017-06-25 20:14 | Emergency (ER) | payer OTHER ==
[2017-06-25 20:14] VITALS: BMI 29.9
[2017-06-25 20:27] VITALS: BP 151/94; PULSE 97; RESP 18; TEMP 98.5; O2SAT 98
--- NOTE | 2017-06-25 21:02 | ED PDOC ---
HPI: Psych/Substance Abuse Time Seen by Provider: 06/25/17 20:29 Chief Complaint (Nursing): Alcohol Ingestion Chief Complaint (Provider): ETOH History Per: Patient Additional Complaint(s): 57 y/o male, well-known to emergency department, brought into ED via EMS for evaluation of acute ETOH intoxication, possible substance abuse, and suicidal ideation, as per triage note. Pt. calm and cooperative with movie writer, admits to drinking tonight and is denying homicidal or suicidal ideations at this time. offers no physical complaints. PMHx of COPD, HTN, GERD, gastritis and pancreatitis secondary to alcohol abuse, HLD, hx of seizures, chronic LBP, depression and bipolar disorder Past Medical History Reviewed: Historical Data, Nursing Documentation, Vital Signs Vital Signs: Last Vital Signs Temp 98.5 F 06/25/17 20:22 Pulse 97 H 06/25/17 20:22 Resp 18 06/25/17 20:22 BP 151/94 H 06/25/17 20:22 Pulse Ox 98 06/25/17 20:22 - Medical History PMH: Anemia, Anxiety, Asthma, Back Problems, Bipolar Disorder, COPD, Depression , Gastritis (secondary to ETOH), GERD, Hypercholesterolemia, Pancreatitis ( secondary to ETOH), Schizophrenia, Seizures (secondary to ETOH withdrawal), Chronic Pain (low back pain ) Denies: Alzheimer's Disease, Atrial Fibrillation, Bronchitis, Cardia Arrhythmia, CHF, Dementia, Diabetes, Emphysema, Hepatitis, HIV, HTN, Migraine, Mitral Valve Prolapse, Multiple Sclerosis, Parkinson's Disease, Peripheral Edema , Pneumonia, Pulmonary Embolism, Chronic Kidney Disease, Sexually Transmitted Disease, Sleep Apnea - Surgical History Surgical History: Back Surgery Denies: Pacemaker - Family History Family History: States: Unknown Family Hx, Diabetes - Living Arrangements Living Arrangements: Other - Social History Alcohol: > 2 Drinks/Day - Immunization History Hx Tetanus Toxoid Vaccination: Yes (As per patient, TDaP uptodate ( about 3 years ago)) Hx Influenza Vaccination: No Hx Pneumococcal Vaccination: No - Home Medications Home Medications: Ambulatory Orders Medication Instructions Recorded amLODIPine [Norvasc] 5 mg PO DAILY tab 06/01/17 Albuterol HFA [Ventolin HFA 90 2 puff INH RQ8 PRN inhaler 06/14/17 mcg/actuation (8 g)] Albuterol/Ipratropium [Duoneb 3 3 ml INH RQ6 PRN neb 06/14/17 mg/0.5 mg (3 ml) UD] Benzonatate [Tessalon Perles] 100 mg PO TID PRN sgl 06/14/17 Dextrose Oral [Glutose 15] 0 gm PO ONCE PRN tube 06/14/17 Famotidine [Pepcid] 20 mg PO BID #0 tab 06/14/17 Folic Acid 1 mg PO DAILY tab 06/14/17 Gabapentin [Neurontin] 100 mg PO TID 30 Days #90 cap 06/14/17 Glucagon [Glucagen Diagnostic Kit] 0 mg IM STAT PRN vial 06/14/17 Insulin Human Regular [HumuLIN R] 0 units SC ACHS ml 06/14/17 Multimineral/Multivitamin 1 tab PO DAILY 30 Days #30 tab 06/14/17 [Therapeutic-M Tab] QUEtiapine [SEROquel] 300 mg PO HS 30 Days #30 tab 06/14/17 Thiamine [Vitamin B1 Tab] 100 mg PO DAILY 30 Days #30 tab 06/14/17 amLODIPine [Norvasc] 5 mg PO DAILY #0 tab 06/14/17 metFORMIN [glucOPHAGE] 850 mg PO DAILY tab 06/14/17 metFORMIN [glucOPHAGE] 850 mg PO DAILY #90 tab 06/14/17 traZODone [Desyrel] 100 mg PO HS 30 Days #30 tab 06/14/17 - Allergies Allergies/Adverse Reactions: Allergies Allergy/AdvReac Type Severity Reaction Status Date / Time No Known Allergies Allergy Verified 06/25/17 20:27 Review of Systems ROS Statement: Except As Marked, All Systems Reviewed And Found Negative Physical Exam - Reviewed Nursing Documentation Reviewed: Yes Vital Signs Reviewed: Yes - Physical Exam Appears: Positive for: Well, Non-toxic, No Acute Distress Head Exam: Positive for: ATRAUMATIC, NORMAL INSPECTION, NORMOCEPHALIC Skin: Positive for: Normal Color, Warm, DRY Eye Exam: Positive for: EOMI, Normal appearance, PERRL ENT: Positive for: Normal ENT Inspection Neck: Positive for: Normal, Painless ROM Cardiovascular/Chest: Positive for: Regular Rate, Rhythm Respiratory: Positive for: CNT, Normal Breath Sounds Gastrointestinal/Abdominal: Positive for: Normal Exam, Bowel Sounds, Soft Back: Positive for: Normal Inspection Extremity: Positive for: Normal ROM Neurologic/Psych: Positive for: Alert, Oriented - Laboratory Results Result Diagrams: 06/25/17 21:11 06/25/17 21:11 - ECG O2 Sat by Pulse Oximetry: 98 Medical Decision Making Medical Decision Making: Pt calm and cooperative, laying in bed and agreeable to medical work up On re-eval, pt in bed asleep. arousable to verbal stimuli. ETOH 293 Pt underwent crisis eval 0500 Case endorsed to ED MD, Dr. Souza, 0600 pending psychiatric clearance Disposition - Clinical Impression Clinical Impression: Alcohol ingestion - Patient ED Disposition Is Patient to be Admitted: Transfer of Care - Disposition Disposition: Transfer of Care Disposition Time: 06:18 Condition: STABLE Forms: [employer] (Sammarinese) - POA Present On Arrival: None
[2017-06-25 21:20] LABS: BASO # 0.1 K/uL (0.0-0.2); BASO % 0.8 % (0.0-2.0); EOS # 0.2 K/uL (0.0-0.7); EOS % 2.2 % (0.0-4.0); HEMOGLOBIN 14.4 g/dL (12.0-18.0); LYMPH # 5.3 K/uL (1.0-4.3); LYMPH % 55.4 % (20.0-40.0); MEAN CELL VOLUME 89.2 fl (80.0-94.0); MEAN CORPUSCULAR HEMOGLOBIN 30.4 pg (27.0-31.0); MEAN CORPUSCULAR HGB CONC 34.1 g/dL (33.0-37.0); MEAN PLATELET VOLUME 7.3 fl (7.2-11.7); MONO # 0.5 K/uL (0.0-0.8); MONO % 4.9 % (0.0-10.0); NEUT # 3.5 K/uL (1.8-7.0); NEUT % 36.7 % (50.0-75.0); NRBC % 0.2 % (0.0-0.0); PLATELET COUNT 323 K/uL (130-400); RBC 4.72 Mil/uL (4.40-5.90); RED CELL DISTRIBUTION WIDTH 14.2 % (11.5-14.5); WHITE BLOOD COUNT 9.5 K/uL (4.8-10.8)
[2017-06-25 21:31] LABS: ALB/GLOB RATIO 1.3 (1.0-2.1); ALBUMIN 4.4 g/dL (3.5-5.0); ALT/SGPT 61 U/L (21-72); AST/SGOT 46 U/L (17-59); BLOOD UREA NITROGEN 11 mg/dl (9-20); CALCIUM 9.1 mg/dL (8.4-10.2); GFR AFRICAN-AMERICAN > 60; GFR NON-AFRICAN AMERICAN > 60
[2017-06-25 22:49] LABS: ANISOCYTOSIS SLIGHT; EOSINOPHIL 1 % (0-7); LYMPHOCYTE 56 % (20-50); MONOCYTE 1 % (0-10); NEUTROPHIL 38 % (42-75); PLATELET ESTIMATE NORMAL (NORMAL); POIKILOCYTOSIS SLIGHT; REACTIVE LYMPHOCYTES 4 % (0-0); STOMATOCYTES SLIGHT; TOTAL CELLS COUNTED 100
== END 2017-06-26 07:05 | disposition home or self-care (01) ==
LOC: H.ER 20:14
DX: F10.129 Alcohol abuse with intoxication, unspecified (principal); E78.00 Pure hypercholesterolemia, unspecified; F20.9 Schizophrenia, unspecified; F31.9 Bipolar disorder, unspecified; F41.9 Anxiety disorder, unspecified; I10 Essential (primary) hypertension; Z79.84 Long term (current) use of oral hypoglycemic drugs

== ENCOUNTER 2017-06-27 17:30 | Emergency (ER) | payer OTHER ==
[2017-06-27 17:30] VITALS: BMI 29.9
[2017-06-27 18:35] VITALS: BP 141/71; PULSE 69; RESP 16; TEMP 98.3; O2SAT 98
--- NOTE | 2017-06-27 19:37 | ED PDOC ---
HPI: Psych/Substance Abuse Time Seen by Provider: 06/27/17 18:40 Chief Complaint (Nursing): Psychiatric Evaluation Chief Complaint (Provider): Anxious that he cannot get appointment History Per: Patient History/Exam Limitations: no limitations Onset/Duration Of Symptoms: Days Current Symptoms Are (Timing): Still Present Additional Complaint(s): Pt sates his appointment was 07/20/17 and he is still hearing voices. PT drinks alcohol daily but states he is drinking slightly less every day. No SI/HI. PT states he is concerned his appointment is too far away. Calm and cooperative in ER. Past Medical History Reviewed: Historical Data, Nursing Documentation, Vital Signs Vital Signs: Last Vital Signs Temp 98.3 F 06/27/17 18:32 Pulse 69 06/27/17 18:32 Resp 16 06/27/17 18:32 BP 141/71 06/27/17 18:32 Pulse Ox 98 06/27/17 18:32 - Medical History PMH: Anemia, Anxiety, Asthma, Back Problems, Bipolar Disorder, COPD, Depression , Gastritis (secondary to ETOH), GERD, Hypercholesterolemia, Pancreatitis ( secondary to ETOH), Schizophrenia, Seizures (secondary to ETOH withdrawal), Chronic Pain (low back pain ) Denies: Alzheimer's Disease, Atrial Fibrillation, Bronchitis, Cardia Arrhythmia, CHF, Dementia, Diabetes, Emphysema, Hepatitis, HIV, HTN, Migraine, Mitral Valve Prolapse, Multiple Sclerosis, Parkinson's Disease, Peripheral Edema , Pneumonia, Pulmonary Embolism, Chronic Kidney Disease, Sexually Transmitted Disease, Sleep Apnea - Surgical History Surgical History: Back Surgery Denies: Pacemaker - Family History Family History: States: Unknown Family Hx, Diabetes - Immunization History Hx Tetanus Toxoid Vaccination: Yes (As per patient, TDaP uptodate ( about 3 years ago)) Hx Influenza Vaccination: No Hx Pneumococcal Vaccination: No - Home Medications Home Medications: Ambulatory Orders Medication Instructions Recorded amLODIPine [Norvasc] 5 mg PO DAILY tab 06/01/17 Albuterol HFA [Ventolin HFA 90 2 puff INH RQ8 PRN inhaler 06/14/17 mcg/actuation (8 g)] Albuterol/Ipratropium [Duoneb 3 3 ml INH RQ6 PRN neb 06/14/17 mg/0.5 mg (3 ml) UD] Benzonatate [Tessalon Perles] 100 mg PO TID PRN sgl 06/14/17 Dextrose Oral [Glutose 15] 0 gm PO ONCE PRN tube 06/14/17 Famotidine [Pepcid] 20 mg PO BID #0 tab 06/14/17 Folic Acid 1 mg PO DAILY tab 06/14/17 Gabapentin [Neurontin] 100 mg PO TID 30 Days #90 cap 06/14/17 Glucagon [Glucagen Diagnostic Kit] 0 mg IM STAT PRN vial 06/14/17 Insulin Human Regular [HumuLIN R] 0 units SC ACHS ml 06/14/17 Multimineral/Multivitamin 1 tab PO DAILY 30 Days #30 tab 06/14/17 [Therapeutic-M Tab] QUEtiapine [SEROquel] 300 mg PO HS 30 Days #30 tab 06/14/17 Thiamine [Vitamin B1 Tab] 100 mg PO DAILY 30 Days #30 tab 06/14/17 amLODIPine [Norvasc] 5 mg PO DAILY #0 tab 06/14/17 metFORMIN [glucOPHAGE] 850 mg PO DAILY tab 06/14/17 metFORMIN [glucOPHAGE] 850 mg PO DAILY #90 tab 06/14/17 traZODone [Desyrel] 100 mg PO HS 30 Days #30 tab 06/14/17 - Allergies Allergies/Adverse Reactions: Allergies Allergy/AdvReac Type Severity Reaction Status Date / Time No Known Allergies Allergy Verified 06/27/17 18:32 Review of Systems ROS Statement: Except As Marked, All Systems Reviewed And Found Negative Constitutional: Negative for: Fever, Chills Psych: Positive for: Psychosis Physical Exam - Reviewed Nursing Documentation Reviewed: Yes Vital Signs Reviewed: Yes - Physical Exam Appears: Positive for: Well, Non-toxic, No Acute Distress Head Exam: Positive for: ATRAUMATIC, NORMAL INSPECTION, NORMOCEPHALIC Skin: Positive for: Normal Color, Warm, DRY Eye Exam: Positive for: Normal appearance ENT: Positive for: Normal ENT Inspection Neck: Positive for: Normal, Painless ROM Cardiovascular/Chest: Positive for: Regular Rate, Rhythm Respiratory: Positive for: CNT, Normal Breath Sounds Gastrointestinal/Abdominal: Positive for: Normal Exam, Bowel Sounds, Soft Back: Positive for: Normal Inspection Extremity: Positive for: Normal ROM Neurologic/Psych: Positive for: Alert, Oriented - ECG O2 Sat by Pulse Oximetry: 98 Disposition - Clinical Impression Clinical Impression: Schizoaffective disorder - Patient ED Disposition Is Patient to be Admitted: No Counseled Patient/Family Regarding: Diagnosis, Need For Followup - Disposition Referrals: [facility] [Outside] Disposition: Routine/Home Disposition Time: 19:27 Condition: GOOD Instructions: Schizoaffective Disorder (ED)
== END 2017-06-27 20:05 | disposition home or self-care (01) ==
LOC: H.ER 17:30
DX: F25.9 Schizoaffective disorder, unspecified (principal); E78.00 Pure hypercholesterolemia, unspecified; F31.9 Bipolar disorder, unspecified; F41.9 Anxiety disorder, unspecified; Z79.84 Long term (current) use of oral hypoglycemic drugs; Z87.19 Personal history of other diseases of the digestive system; K21.9 Gastro-esophageal reflux disease without esophagitis

== ENCOUNTER 2017-07-04 07:26 | Emergency (ER) | payer OTHER ==
[2017-07-04 07:27] VITALS: BMI 29.9
[2017-07-04 07:32] VITALS: TEMP 98.2; O2SAT 99
--- NOTE | 2017-07-04 09:19 | ED PDOC ---
HPI: Abdomen Time Seen by Provider: 07/04/17 07:46 Chief Complaint (Nursing): Abdominal Pain History Per: Patient Onset/Duration Of Symptoms: Days (2), Gradual Severity: Mild Location Of Pain/Discomfort: Epigastric Quality Of Discomfort: Sharp. denies: Dull, Aching, Cramping, Burning, Pressure , Stabbing Associated Symptoms: denies: Fever, Chills, Nausea, Vomiting, Back Pain, Chest Pain, Constipation, Urinary Symptoms Exacerbating Factors: None Alleviating Factors: None Last Bowel Movement: Yesterday Additional History Per: Patient Additional Complaint(s): c/o epigastric pain x2 days. Denies nausea or vomiting. similar sx due to alcohol induced pancreatitis in the past Past Medical History Reviewed: Historical Data, Nursing Documentation, Vital Signs Vital Signs: Last Vital Signs Temp 98.2 F 07/04/17 07:31 Pulse 111 H 07/04/17 07:31 Resp 20 07/04/17 07:31 BP 153/93 H 07/04/17 07:31 Pulse Ox 99 07/04/17 09:19 - Medical History PMH: Anemia, Anxiety, Asthma, Back Problems, Bipolar Disorder, COPD, Depression , Gastritis (secondary to ETOH), GERD, Hypercholesterolemia, Pancreatitis ( secondary to ETOH), Schizophrenia, Seizures (secondary to ETOH withdrawal), Chronic Pain (low back pain ) Denies: Alzheimer's Disease, Atrial Fibrillation, Bronchitis, Cardia Arrhythmia, CHF, Dementia, Diabetes, Emphysema, Hepatitis, HIV, HTN, Migraine, Mitral Valve Prolapse, Multiple Sclerosis, Parkinson's Disease, Peripheral Edema , Pneumonia, Pulmonary Embolism, Chronic Kidney Disease, Sexually Transmitted Disease, Sleep Apnea - Surgical History Surgical History: Back Surgery Denies: Pacemaker - Family History Family History: States: Unknown Family Hx, Diabetes - Immunization History Hx Tetanus Toxoid Vaccination: Yes (As per patient, TDaP uptodate ( about 3 years ago)) Hx Influenza Vaccination: No Hx Pneumococcal Vaccination: No - Home Medications Home Medications: Ambulatory Orders Medication Instructions Recorded amLODIPine [Norvasc] 5 mg PO DAILY tab 06/01/17 Albuterol HFA [Ventolin HFA 90 2 puff INH RQ8 PRN inhaler 06/14/17 mcg/actuation (8 g)] Albuterol/Ipratropium [Duoneb 3 3 ml INH RQ6 PRN neb 06/14/17 mg/0.5 mg (3 ml) UD] Benzonatate [Tessalon Perles] 100 mg PO TID PRN sgl 06/14/17 Dextrose Oral [Glutose 15] 0 gm PO ONCE PRN tube 06/14/17 Famotidine [Pepcid] 20 mg PO BID #0 tab 06/14/17 Folic Acid 1 mg PO DAILY tab 06/14/17 Gabapentin [Neurontin] 100 mg PO TID 30 Days #90 cap 06/14/17 Glucagon [Glucagen Diagnostic Kit] 0 mg IM STAT PRN vial 06/14/17 Insulin Human Regular [HumuLIN R] 0 units SC ACHS ml 06/14/17 Multimineral/Multivitamin 1 tab PO DAILY 30 Days #30 tab 06/14/17 [Therapeutic-M Tab] QUEtiapine [SEROquel] 300 mg PO HS 30 Days #30 tab 06/14/17 Thiamine [Vitamin B1 Tab] 100 mg PO DAILY 30 Days #30 tab 06/14/17 amLODIPine [Norvasc] 5 mg PO DAILY #0 tab 06/14/17 metFORMIN [glucOPHAGE] 850 mg PO DAILY tab 06/14/17 metFORMIN [glucOPHAGE] 850 mg PO DAILY #90 tab 06/14/17 traZODone [Desyrel] 100 mg PO HS 30 Days #30 tab 06/14/17 - Allergies Allergies/Adverse Reactions: Allergies Allergy/AdvReac Type Severity Reaction Status Date / Time No Known Allergies Allergy Verified 06/27/17 18:32 Review of Systems ROS Statement: Except As Marked, All Systems Reviewed And Found Negative Constitutional: Negative for: Fever, Chills Cardiovascular: Negative for: Chest Pain, Palpitations Respiratory: Negative for: Cough, Shortness of Breath Gastrointestinal: Positive for: Nausea, Vomiting, Abdominal Pain. Negative for : Diarrhea Genitourinary Male: Negative for: Dysuria Neurological: Negative for: Weakness, Numbness Physical Exam - Reviewed Nursing Documentation Reviewed: Yes Vital Signs Reviewed: Yes - Physical Exam Appears: Positive for: Uncomfortable Head Exam: Positive for: ATRAUMATIC, NORMAL INSPECTION, NORMOCEPHALIC Skin: Positive for: Normal Color, Warm, Dry Eye Exam: Positive for: Normal appearance, EOMI, PERRL Neck: Positive for: Normal, Painless ROM, Supple Cardiovascular/Chest: Positive for: Chest Non Tender, Tachycardia. Negative for : Edema, Gallop, Murmur, Bradycardia, Ectopy Respiratory: Positive for: Normal Breath Sounds. Negative for: Decreased Breath Sounds, Accessory Muscle Use, Rales, Rhonchi, Stridor, Wheezing Gastrointestinal/Abdominal: Positive for: Normal Exam, Bowel Sounds, Soft. Negative for: Tenderness Back: Positive for: Normal Inspection. Negative for: L CVA Tenderness, R CVA Tenderness Extremity: Positive for: Normal ROM. Negative for: Tenderness, Pedal Edema Neurologic/Psych: Positive for: Alert, wet end tester II-XII, Oriented. Negative for: Motor/Sensory Deficits - Laboratory Results Result Diagrams: 07/04/17 09:54 07/04/17 09:54 - ECG ECG: Positive for: Interpreted By Me ECG Rhythm: Positive for: Normal QRS, Normal ST Segment, Sinus Rhythm (78). Negative for: ST/T Changes Interpretation Of Abn EKG: abnml ecg w/o change compared 06/02/2017 O2 Sat by Pulse Oximetry: 99 Pulse Ox Interpretation: Normal - Progress ED Course And Treament: pt sx markedly improved seen by family practice and advise hospital admission but pt refused. pt has chronic pancreatitis with lipase elevated on last admission advise close fp f/u. all of pt's questions were answered and pt agree' s with plan. Re-evaluation Time: 12:00 Condition: Improved Disposition - Clinical Impression Clinical Impression: Pancreatitis, alcoholic, acute - Patient ED Disposition Is Patient to be Admitted: No Counseled Patient/Family Regarding: Studies Performed, Diagnosis - Disposition Referrals: [facility] [Outside] (2 to 3 days) Disposition Time: 12:00 Condition: GOOD Instructions: Pancreatitis (ED) Forms: [employer] ([employer])
--- NOTE | 2017-07-04 10:08 | CT ---
PROCEDURE: CT Abdomen and Pelvis without intravenous contrast HISTORY: Right flank pain, r/o stone COMPARISON: 10/18/2016. TECHNIQUE: CT scan of the abdomen and pelvis was performed without administration of intravenous contrast. Oral contrast was not administered. Coronal and sagittal reformatted images were obtained. Radiation dose: Total exam DLP = 876.22 mGy-cm. This CT exam was performed using one or more of the following dose reduction techniques: Automated exposure control, adjustment of the mA and/or kV according to patient size, and/or use of iterative reconstruction technique. FINDINGS: LOWER THORAX: The lung bases are clear. LIVER: Normal in size. No gross lesion or ductal dilatation. GALLBLADDER AND BILE DUCTS: No calcified gallstones. PANCREAS: Normal in size. No gross lesion or ductal dilatation. SPLEEN: Normal in size. ADRENALS: No discrete nodule. KIDNEYS AND URETERS: The right kidney is normal in size without hydronephrosis or nephrolithiasis. 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 There are nonspecific perinephric inflammatory changes. No hydronephrosis or nephrolithiasis. VASCULATURE: No aortic aneurysm. BOWEL: The small bowel loops are normal in caliber. There is colonic diverticulosis without CT evidence for acute diverticulitis. No bowel dilatation or obstruction. APPENDIX: Normal appendix. PERITONEUM: No free fluid. No free air. LYMPH NODES: No enlarged lymph nodes. BLADDER: Grossly normal in appearance. REPRODUCTIVE: The prostate gland is normal in size. BONES: There is an old osteoporotic compression fracture in the L2 vertebral body with kyphoplasty changes. Within normal limits for the patient's age OTHER FINDINGS: There is a small umbilical hernia containing nonobstructed small bowel lobes. IMPRESSION: No acute abdominal or pelvic abnormality. No right nephrolithiasis or obstructive uropathy. Colonic diverticulosis without CT evidence for acute diverticulitis. 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
[2017-07-04 10:09] LABS: BASO # 0.1 K/uL (0.0-0.2); EOS % 0.5 % (0.0-4.0); HEMOGLOBIN 13.5 g/dL (12.0-18.0); LYMPH % 37.1 % (20.0-40.0); MEAN CELL VOLUME 88.8 fl (80.0-94.0); MEAN CORPUSCULAR HEMOGLOBIN 30.4 pg (27.0-31.0); MEAN CORPUSCULAR HGB CONC 34.3 g/dL (33.0-37.0); MEAN PLATELET VOLUME 7.1 fl (7.2-11.7); MONO # 0.5 K/uL (0.0-0.8); MONO % 5.8 % (0.0-10.0); NEUT # 4.5 K/uL (1.8-7.0); NEUT % 55.6 % (50.0-75.0); NRBC % 0.1 % (0.0-0.0); RBC 4.45 Mil/uL (4.40-5.90)
[2017-07-04 10:20] LABS: SQUAMOUS EPITHIAL < 1 /hpf (0-5); URINE BILIRUBIN NEGATIVE (NEGATIVE); URINE BLOOD NEGATIVE (NEGATIVE); URINE CLARITY CLEAR (Clear); URINE COLOR YELLOW (YELLOW); URINE GLUCOSE (UA) NEG (Normal); URINE LEUKOCYTE ESTERASE NEG Leu/uL (Negative); URINE NITRATE NEGATIVE (NEGATIVE); URINE PROTEIN NEGATIVE (NEGATIVE); URINE UROBILINOGEN 0.2-1.0 mg/dL (0.2-1.0)
[2017-07-04] MEDS: Sodium Chloride 0.9% 1,000 ML IV ONE (10:29)
[2017-07-04 10:33] LABS: ALB/GLOB RATIO 1.3 (1.0-2.1); ALBUMIN 4.3 g/dL (3.5-5.0); ALT/SGPT 55 U/L (21-72); AMYLASE 116 U/L (30-110); AST/SGOT 51 U/L (17-59); BLOOD UREA NITROGEN 9 mg/dl (9-20); CALCIUM 9.1 mg/dL (8.4-10.2); GFR AFRICAN-AMERICAN > 60; GFR NON-AFRICAN AMERICAN > 60; LIPASE 392 U/L (23-300)
[2017-07-04 10:40] LABS: BARBITURATES, UR NEGATIVE (NEGATIVE); BENZODIAZEPINES, UR NEGATIVE (NEGATIVE); OPIATES, UR NEGATIVE (NEGATIVE); PHENCYCLIDINE, UR NEGATIVE (NEGATIVE)
[2017-07-04 15:39] VITALS: BP 148/89; PULSE 92; RESP 19
--- NOTE | 2017-07-06 10:02 | CARD ---
APPROVED REPORT EKG Measurement Heart [id number] IA P55 [id number] <Conclusion> Sinus rhythm Incomplete right bundle branch block ST & T wave abnormality, consider anterior ischemia Abnormal ECG
== END 2017-07-04 14:25 | disposition home or self-care (01) ==
LOC: H.ER 07:26
DX: K85.90 Acute pancreatitis without necrosis or infection, unspecified (principal); F10.20 Alcohol dependence, uncomplicated; E78.00 Pure hypercholesterolemia, unspecified; Z79.84 Long term (current) use of oral hypoglycemic drugs; Z87.19 Personal history of other diseases of the digestive system
CPT/HCPCS: 74176; 80053; 80320; 80324; 80345; 80346; 80349; 80353; 80358; 80361; 81003; 82150; 83690; 83992; 84484; 85025; 93005; 96374; 99283; J7040

== ENCOUNTER 2017-07-08 18:50 | Emergency (ER) | payer MEDICAID, OTHER ==
[2017-07-08 19:17] VITALS: PULSE 87; BMI 25.7
[2017-07-08] MEDS ORDERED: Sodium Chloride 0.9% 500 ML IV STA (19:20)
--- NOTE | 2017-07-08 19:23 | ED PDOC ---
HPI: Chest Pain Time Seen by Provider: 07/08/17 19:16 Chief Complaint (Nursing): Chest Pain Chief Complaint (Provider): Chest pain History Per: Patient History/Exam Limitations: no limitations Onset/Duration Of Symptoms: Days (Yesterday) Current Symptoms Are (Timing): Still Present Additional Complaint(s): Chest pain constant 1 day. No dyspnea, weakness, dizziness, leg pain, fever. No long distance travel. No hormone tx. No cough. Etoh use today. No drugs. Past Medical History Reviewed: Nursing Documentation, Vital Signs Vital Signs: Last Vital Signs Temp 98.8 F 07/08/17 19:16 Pulse 87 07/08/17 19:16 Resp 19 07/08/17 19:16 BP 141/76 07/08/17 19:16 Pulse Ox 99 07/08/17 19:16 - Medical History PMH: Anemia, Anxiety, Asthma, Back Problems, Bipolar Disorder, COPD, Depression , Gastritis (secondary to ETOH), GERD, Hypercholesterolemia, Pancreatitis ( secondary to ETOH), Schizophrenia, Seizures (secondary to ETOH withdrawal), Chronic Pain (low back pain ) Denies: Alzheimer's Disease, Atrial Fibrillation, Bronchitis, Cardia Arrhythmia, CHF, Dementia, Diabetes, Emphysema, Hepatitis, HIV, HTN, Migraine, Mitral Valve Prolapse, Multiple Sclerosis, Parkinson's Disease, Peripheral Edema , Pneumonia, Pulmonary Embolism, Chronic Kidney Disease, Sexually Transmitted Disease, Sleep Apnea - Surgical History Surgical History: Back Surgery Denies: Pacemaker - Family History Family History: States: Unknown Family Hx, Diabetes - Immunization History Hx Tetanus Toxoid Vaccination: Yes (As per patient, TDaP uptodate ( about 3 years ago)) Hx Influenza Vaccination: No Hx Pneumococcal Vaccination: No - Home Medications Home Medications: Ambulatory Orders Medication Instructions Recorded amLODIPine [Norvasc] 5 mg PO DAILY tab 06/01/17 Albuterol HFA [Ventolin HFA 90 2 puff INH RQ8 PRN inhaler 06/14/17 mcg/actuation (8 g)] Albuterol/Ipratropium [Duoneb 3 3 ml INH RQ6 PRN neb 06/14/17 mg/0.5 mg (3 ml) UD] Benzonatate [Tessalon Perles] 100 mg PO TID PRN sgl 06/14/17 Dextrose Oral [Glutose 15] 0 gm PO ONCE PRN tube 06/14/17 Famotidine [Pepcid] 20 mg PO BID #0 tab 06/14/17 Folic Acid 1 mg PO DAILY tab 06/14/17 Gabapentin [Neurontin] 100 mg PO TID 30 Days #90 cap 06/14/17 Glucagon [Glucagen Diagnostic Kit] 0 mg IM STAT PRN vial 06/14/17 Insulin Human Regular [HumuLIN R] 0 units SC ACHS ml 06/14/17 Multimineral/Multivitamin 1 tab PO DAILY 30 Days #30 tab 06/14/17 [Therapeutic-M Tab] QUEtiapine [SEROquel] 300 mg PO HS 30 Days #30 tab 06/14/17 Thiamine [Vitamin B1 Tab] 100 mg PO DAILY 30 Days #30 tab 06/14/17 amLODIPine [Norvasc] 5 mg PO DAILY #0 tab 06/14/17 metFORMIN [glucOPHAGE] 850 mg PO DAILY tab 06/14/17 metFORMIN [glucOPHAGE] 850 mg PO DAILY #90 tab 06/14/17 traZODone [Desyrel] 100 mg PO HS 30 Days #30 tab 06/14/17 - Allergies Allergies/Adverse Reactions: Allergies Allergy/AdvReac Type Severity Reaction Status Date / Time No Known Allergies Allergy Verified 07/08/17 19:15 Review of Systems ROS Statement: Except As Marked, All Systems Reviewed And Found Negative Cardiovascular: Positive for: Chest Pain Physical Exam - Reviewed Nursing Documentation Reviewed: Yes Vital Signs Reviewed: Yes - Physical Exam Appears: Positive for: Non-toxic, No Acute Distress Head Exam: Positive for: ATRAUMATIC, NORMAL INSPECTION, NORMOCEPHALIC Skin: Positive for: Normal Color, Warm, DRY Eye Exam: Positive for: EOMI, Normal appearance, PERRL ENT: Positive for: Normal ENT Inspection Neck: Positive for: Normal, Painless ROM Cardiovascular/Chest: Positive for: Regular Rate, Rhythm Respiratory: Positive for: CNT, Normal Breath Sounds Gastrointestinal/Abdominal: Positive for: Normal Exam, Bowel Sounds, Soft Back: Positive for: Normal Inspection Extremity: Positive for: Normal ROM Neurologic/Psych: Positive for: Alert, Oriented - ECG ECG Rhythm: Positive for: Normal QRS, Normal ST Segment, Sinus Rhythm O2 Sat by Pulse Oximetry: 99 Pulse Ox Interpretation: Normal - Progress ED Course And Treament: 1923: Stable. AAOx3. Dr Kelly to take over care. Disposition - Clinical Impression Clinical Impression: Chest pain - Patient ED Disposition Is Patient to be Admitted: Transfer of Care - Disposition Disposition Time: 19:24 Condition: STABLE - POA Present On Arrival: None
--- NOTE | 2017-07-08 19:32 | ED PDOC ---
- Laboratory Results Result Diagrams: 07/08/17 19:30 07/08/17 19:30 - ECG O2 Sat by Pulse Oximetry: 99 (RA) Pulse Ox Interpretation: Normal - Progress Re-evaluation Time: 00:11 Condition: Re-examined, Improved Medical Decision Making Medical Decision Making: Patient signed out to provider at [address] Eckert pending lab and chest x- ray Documented by Cleopatra Lorenz acting as a scribe for José Manuel Kelly MD. All medical record entries made by the Scribe were at my direction and personally dictated by me. I have reviewed the chart and agree that the record accurately reflects my personal performance of the history, physical exam, medical decision making, and the department course for this patient. I have also personally directed, reviewed, and agree with the discharge instructions and disposition. Disposition Doctor Will See Patient In The: Office Counseled Patient/Family Regarding: Studies Performed, Diagnosis - Clinical Impression Clinical Impression: Chest pain, Alcohol intoxication - POA Present On Arrival: None - Disposition Referrals: [facility] [Outside] Disposition: Routine/Home Disposition Time: 23:50 Condition: GOOD Instructions: Chest Pain (ED), Alcohol Intoxication (ED)
[2017-07-08 19:50] LABS: BASO # 0.1 K/uL (0.0-0.2); BASO % 1.3 % (0.0-2.0); EOS # 0.1 K/uL (0.0-0.7); EOS % 1.4 % (0.0-4.0); LYMPH # 4.6 K/uL (1.0-4.3); LYMPH % 51.5 % (20.0-40.0); MEAN CORPUSCULAR HEMOGLOBIN 32.6 pg (27.0-31.0); MEAN CORPUSCULAR HGB CONC 36.6 g/dL (33.0-37.0); MEAN PLATELET VOLUME 7.4 fl (7.2-11.7); MONO # 0.6 K/uL (0.0-0.8); MONO % 6.2 % (0.0-10.0); NEUT # 3.6 K/uL (1.8-7.0); NEUT % 39.6 % (50.0-75.0); NRBC % 0.5 % (0.0-0.0); RBC 4.79 Mil/uL (4.40-5.90); RED CELL DISTRIBUTION WIDTH 14.6 % (11.5-14.5)
[2017-07-08 19:58] LABS: HEMOGLOBIN 15.6 g/dL (12.0-18.0)
[2017-07-08 20:11] LABS: INR 1.2 (0.9-1.2); PARTIAL THROMBOPLASTIN TIME 30.5 Seconds (25.6-37.1)
[2017-07-08 20:39] LABS: BLOOD UREA NITROGEN 13 mg/dl (9-20)
[2017-07-08 20:40] LABS: ALB/GLOB RATIO 1.1 (1.0-2.1); ALBUMIN 4.4 g/dL (3.5-5.0); AST/SGOT 109 U/L (17-59); CALCIUM 8.7 mg/dL (8.4-10.2); GFR AFRICAN-AMERICAN > 60; GFR NON-AFRICAN AMERICAN > 60
[2017-07-08 20:41] LABS: ALT/SGPT 65 U/L (21-72)
[2017-07-08 23:50] VITALS: BP 139/89; RESP 16; TEMP 98.2
[2017-07-09 00:16] VITALS: O2SAT 99
--- NOTE | 2017-07-09 08:50 | RAD ---
HISTORY: dyspnea COMPARISON: Chest radiograph dated 06/02/2017. FINDINGS: LUNGS: No active pulmonary disease. PLEURA: No significant pleural effusion identified, no pneumothorax apparent. CARDIOVASCULAR: Normal. OSSEOUS STRUCTURES: Unchanged. VISUALIZED UPPER ABDOMEN: Normal. OTHER FINDINGS: None. IMPRESSION: No active disease.
--- NOTE | 2017-07-09 11:17 | CARD ---
APPROVED REPORT EKG Measurement Heart [id number] <Conclusion> Normal sinus rhythm Left axis deviation Abnormal ECG
== END 2017-07-08 23:51 | disposition home or self-care (01) ==
LOC: H.ER 18:50
DX: R07.89 Other chest pain (principal); F10.129 Alcohol abuse with intoxication, unspecified
CPT/HCPCS: 71045; 80053; 80320; 84484; 85025; 85610; 85730; 93005; 99283; J7040

== ENCOUNTER 2017-07-20 18:04 | Emergency (ER) | payer OTHER ==
[2017-07-20 18:05] VITALS: BMI 25.7
[2017-07-20 18:08] VITALS: BP 120/78; PULSE 71; RESP 16; TEMP 9831; O2SAT 100
--- NOTE | 2017-07-20 18:23 | ED PDOC ---
HPI: Psych/Substance Abuse Time Seen by Provider: 07/20/17 18:17 Chief Complaint (Nursing): Alcohol Ingestion Chief Complaint (Provider): ETOH History Per: Patient, EMS Additional Complaint(s): 57-year-old male with history of alcohol abuse presents to emergency department via ambulance acutely intoxicated. Patient admits to drinking today and has alcohol on his breath. Patient also complains of nausea with no vomiting. PMD: none Past Medical History Reviewed: Historical Data, Nursing Documentation, Vital Signs Vital Signs: Last Vital Signs Temp 9831 F H 07/20/17 18:07 Pulse 71 07/20/17 18:07 Resp 16 07/20/17 18:07 BP 120/78 07/20/17 18:07 Pulse Ox 100 07/20/17 18:07 - Medical History PMH: Anemia, Anxiety, Asthma, Back Problems, Bipolar Disorder, COPD, Depression , Gastritis (secondary to ETOH), GERD, Hypercholesterolemia, Pancreatitis ( secondary to ETOH), Schizophrenia, Seizures (secondary to ETOH withdrawal), Chronic Pain (low back pain ) - Surgical History Surgical History: Back Surgery - Family History Family History: States: Diabetes - Social History Alcohol: > 2 Drinks/Day - Immunization History Hx Tetanus Toxoid Vaccination: Yes (As per patient, TDaP uptodate ( about 3 years ago)) - Home Medications Home Medications: Ambulatory Orders Medication Instructions Recorded amLODIPine [Norvasc] 5 mg PO DAILY tab 06/01/17 Albuterol HFA [Ventolin HFA 90 2 puff INH RQ8 PRN inhaler 06/14/17 mcg/actuation (8 g)] Albuterol/Ipratropium [Duoneb 3 3 ml INH RQ6 PRN neb 06/14/17 mg/0.5 mg (3 ml) UD] Benzonatate [Tessalon Perles] 100 mg PO TID PRN sgl 06/14/17 Dextrose Oral [Glutose 15] 0 gm PO ONCE PRN tube 06/14/17 Famotidine [Pepcid] 20 mg PO BID #0 tab 06/14/17 Folic Acid 1 mg PO DAILY tab 06/14/17 Gabapentin [Neurontin] 100 mg PO TID 30 Days #90 cap 06/14/17 Glucagon [Glucagen Diagnostic Kit] 0 mg IM STAT PRN vial 06/14/17 Insulin Human Regular [HumuLIN R] 0 units SC ACHS ml 06/14/17 Multimineral/Multivitamin 1 tab PO DAILY 30 Days #30 tab 06/14/17 [Therapeutic-M Tab] QUEtiapine [SEROquel] 300 mg PO HS 30 Days #30 tab 06/14/17 Thiamine [Vitamin B1 Tab] 100 mg PO DAILY 30 Days #30 tab 06/14/17 amLODIPine [Norvasc] 5 mg PO DAILY #0 tab 06/14/17 metFORMIN [glucOPHAGE] 850 mg PO DAILY tab 06/14/17 metFORMIN [glucOPHAGE] 850 mg PO DAILY #90 tab 06/14/17 traZODone [Desyrel] 100 mg PO HS 30 Days #30 tab 06/14/17 - Allergies Allergies/Adverse Reactions: Allergies Allergy/AdvReac Type Severity Reaction Status Date / Time No Known Allergies Allergy Verified 07/08/17 19:15 Review of Systems ROS Statement: Except As Marked, All Systems Reviewed And Found Negative Psych: Positive for: Other (etoh) Physical Exam - Reviewed Nursing Documentation Reviewed: Yes Vital Signs Reviewed: Yes - Physical Exam Appears: Positive for: Well, Non-toxic, No Acute Distress Skin: Negative for: Rash Eye Exam: Positive for: Normal appearance Cardiovascular/Chest: Positive for: Regular Rate, Rhythm Respiratory: Positive for: Normal Breath Sounds Gastrointestinal/Abdominal: Positive for: Soft. Negative for: Tenderness Neurologic/Psych: Positive for: Alert, Oriented - ECG O2 Sat by Pulse Oximetry: 100 Pulse Ox Interpretation: Normal Medical Decision Making Medical Decision Makin57 year old intoxicated male Plan: IM zofran BAL CBC CMP Lipase 19:57: patient left before treatment complete Disposition - Clinical Impression Clinical Impression: Alcohol abuse with intoxication - Patient ED Disposition Is Patient to be Admitted: No - Disposition Disposition: Left W/O Treatment (Patient left before treatment complete) Disposition Time: 20:02 Condition: UNKNOWN Forms: [employer] ([employer])
[2017-07-20] MEDS ORDERED: Sodium Chloride 0.9% 1,000 ML IV STA (19:48)
== END 2017-07-20 20:00 | disposition left against medical advice (07) ==
LOC: H.ER 18:04
DX: F10.129 Alcohol abuse with intoxication, unspecified (principal)

== ENCOUNTER 2017-07-30 20:36 | Emergency (ER) | payer OTHER ==
[2017-07-30 20:36] VITALS: BMI 25.7
[2017-07-30 20:48] VITALS: RESP 18
[2017-07-30] MEDS ORDERED: Sodium Chloride 0.9% 1,000 ML IV STA (21:37)
--- NOTE | 2017-07-30 21:40 | ED PDOC ---
HPI: General Adult Time Seen by Provider: 07/30/17 20:50 Chief Complaint (Nursing): Alcohol Ingestion History Per: Patient History/Exam Limitations: intoxication Additional Complaint(s): Pt. states for the past 3 weeks he's had epigastric abdominal pain associated with nausea and non-bloody vomiting which began today. Admits to drinking alcohol. Denies fever, diarrhea, melena, hematochezia, BRBPR, chest pain, SOB, palpitations, hematemesis. Last BM was today and was normal. Past Medical History Reviewed: Historical Data, Nursing Documentation, Vital Signs Vital Signs: Last Vital Signs Temp 98.0 F 07/30/17 20:44 Pulse 90 07/30/17 20:44 Resp 18 07/30/17 20:44 BP 130/85 07/30/17 20:44 Pulse Ox 97 07/30/17 21:42 - Medical History PMH: Anemia, Anxiety, Asthma, Back Problems, Bipolar Disorder, COPD, Depression , Gastritis (secondary to ETOH), GERD, Hypercholesterolemia, Pancreatitis ( secondary to ETOH), Schizophrenia, Seizures (secondary to ETOH withdrawal), Chronic Pain (low back pain ) Denies: CHF, Dementia, Diabetes, Emphysema, Parkinson's Disease, Peripheral Edema, Pneumonia, Pulmonary Embolism, Chronic Kidney Disease, Sexually Transmitted Disease, Sleep Apnea - Surgical History Surgical History: Back Surgery Denies: Pacemaker - Family History Family History: States: Diabetes - Immunization History Hx Tetanus Toxoid Vaccination: Yes (As per patient, TDaP uptodate ( about 3 years ago)) Hx Influenza Vaccination: No Hx Pneumococcal Vaccination: No - Home Medications Home Medications: Ambulatory Orders Medication Instructions Recorded amLODIPine [Norvasc] 5 mg PO DAILY tab 06/01/17 Albuterol HFA [Ventolin HFA 90 2 puff INH RQ8 PRN inhaler 06/14/17 mcg/actuation (8 g)] Albuterol/Ipratropium [Duoneb 3 3 ml INH RQ6 PRN neb 06/14/17 mg/0.5 mg (3 ml) UD] Benzonatate [Tessalon Perles] 100 mg PO TID PRN sgl 06/14/17 Dextrose Oral [Glutose 15] 0 gm PO ONCE PRN tube 06/14/17 Famotidine [Pepcid] 20 mg PO BID #0 tab 06/14/17 Folic Acid 1 mg PO DAILY tab 06/14/17 Gabapentin [Neurontin] 100 mg PO TID 30 Days #90 cap 06/14/17 Glucagon [Glucagen Diagnostic Kit] 0 mg IM STAT PRN vial 06/14/17 Insulin Human Regular [HumuLIN R] 0 units SC ACHS ml 06/14/17 Multimineral/Multivitamin 1 tab PO DAILY 30 Days #30 tab 06/14/17 [Therapeutic-M Tab] QUEtiapine [SEROquel] 300 mg PO HS 30 Days #30 tab 06/14/17 Thiamine [Vitamin B1 Tab] 100 mg PO DAILY 30 Days #30 tab 06/14/17 amLODIPine [Norvasc] 5 mg PO DAILY #0 tab 06/14/17 metFORMIN [glucOPHAGE] 850 mg PO DAILY tab 06/14/17 metFORMIN [glucOPHAGE] 850 mg PO DAILY #90 tab 06/14/17 traZODone [Desyrel] 100 mg PO HS 30 Days #30 tab 06/14/17 - Allergies Allergies/Adverse Reactions: Allergies Allergy/AdvReac Type Severity Reaction Status Date / Time No Known Allergies Allergy Verified 07/08/17 19:15 Review of Systems Review Of Systems: ROS cannot be obtained secondary to pt's inabilty to answer questions. Physical Exam - Physical Exam Appears: Positive for: Well, Non-toxic, No Acute Distress Head Exam: Positive for: ATRAUMATIC, NORMAL INSPECTION, NORMOCEPHALIC Skin: Positive for: Normal Color, Warm. Negative for: Rash Eye Exam: Positive for: EOMI, Normal appearance, PERRL ENT: Positive for: Normal ENT Inspection Neck: Positive for: Normal, Painless ROM Cardiovascular/Chest: Positive for: Regular Rate, Rhythm Respiratory: Positive for: CNT, Normal Breath Sounds Gastrointestinal/Abdominal: Positive for: Normal Exam, Bowel Sounds, Soft, Tenderness (epigastric tenderness; negative andrews's sign). Negative for: Distended Back: Positive for: Normal Inspection. Negative for: L CVA Tenderness, R CVA Tenderness Extremity: Positive for: Normal ROM Neurologic/Psych: Positive for: Alert, Oriented, Other (AOB; slurred speech). Negative for: Aphasia, Facial Droop - Laboratory Results Result Diagrams: 07/30/17 23:45 07/30/17 23:45 - ECG ECG: Positive for: Interpreted By Me ECG Rhythm: Positive for: Sinus Rhythm. Negative for: ST/T Changes Rate: 67 O2 Sat by Pulse Oximetry: 97 - Radiology X-Ray: Interpreted by Me (CXR) X-Ray Interpretation: No Acute Disease - Progress ED Course And Treament: Labs ordered. EKG, CXR, pepcid 40mg IV, zofran 4mg IV, IV NS bolus x 1 ordered. 2327 Abd US: Mildly enlarged fatty liver. Otherwise unremarkable study. Pancreas not visualized. Case and labs reviewed d/w Dr. Chun and states pt. labs are c/w previous blood work and since he is not in acute painful distress. Pt. can be dc'd. 0009 K: 2.9 Kdur 40 MeQ PO ordered. Pt. sleeping comfortably and in no distress. 0232 On re-evaluation, pt. in no distress. Gait steady unassisted. No slurred speech. Abd soft and non-tender to deep palpation. Disposition - Clinical Impression Clinical Impression: Alcohol intoxication - Patient ED Disposition Is Patient to be Admitted: No - Disposition Referrals: [facility] [Outside] Disposition: Routine/Home Disposition Time: 02:32 Condition: STABLE Instructions: Alcohol Abuse and Alcoholism (DC) Forms: [employer] ([place] Islander)
[2017-07-30 23:48] LABS: BASO # 0.1 K/uL (0.0-0.2); EOS # 0.1 K/uL (0.0-0.7); EOS % 1.5 % (0.0-4.0); HEMOGLOBIN 12.4 g/dL (12.0-18.0); LYMPH # 2.9 K/uL (1.0-4.3); MEAN CELL VOLUME 90.9 fl (80.0-94.0); MEAN CORPUSCULAR HEMOGLOBIN 31.8 pg (27.0-31.0); MEAN PLATELET VOLUME 6.9 fl (7.2-11.7); MONO # 0.3 K/uL (0.0-0.8); MONO % 5.7 % (0.0-10.0); NEUT # 2.5 K/uL (1.8-7.0); NEUT % 41.8 % (50.0-75.0); NRBC % 0.1 % (0.0-0.0); RBC 3.9 Mil/uL (4.40-5.90); RED CELL DISTRIBUTION WIDTH 17.1 % (11.5-14.5); WHITE BLOOD COUNT 5.9 K/uL (4.8-10.8)
[2017-07-31 00:04] LABS: ALB/GLOB RATIO 1.3 (1.0-2.1); ALBUMIN 3.9 g/dL (3.5-5.0); ALT/SGPT 45 U/L (21-72); AST/SGOT 39 U/L (17-59); BLOOD UREA NITROGEN 11 mg/dl (9-20); CALCIUM 8.4 mg/dL (8.4-10.2); GFR AFRICAN-AMERICAN > 60; GFR NON-AFRICAN AMERICAN > 60; LIPASE 334 U/L (23-300)
[2017-07-31] MEDS ORDERED: Potassium Chloride 20 mEq ER Tab PO STA (00:09)
[2017-07-31] MEDS ORDERED: Potassium Chloride 20 mEq ER Tab PO ONE (02:41)
[2017-07-31 03:17] LABS: URINE BILIRUBIN NEGATIVE (NEGATIVE); URINE BLOOD NEGATIVE (NEGATIVE); URINE CLARITY CLEAR (Clear); URINE COLOR YELLOW (YELLOW); URINE GLUCOSE (UA) NEG (Normal); URINE LEUKOCYTE ESTERASE NEG Leu/uL (Negative); URINE NITRATE NEGATIVE (NEGATIVE); URINE PROTEIN NEGATIVE (NEGATIVE); URINE UROBILINOGEN 0.2-1.0 mg/dL (0.2-1.0)
[2017-07-31 05:40] VITALS: BP 122/80; PULSE 80; TEMP 98.2; O2SAT 95
--- NOTE | 2017-07-31 08:47 | RAD ---
HISTORY: epigastric abdominal pain COMPARISON: Frontal chest radiograph 07/08/2017. FINDINGS: LUNGS: No active pulmonary disease. PLEURA: No significant pleural effusion identified, no pneumothorax apparent. CARDIOVASCULAR: Normal. OSSEOUS STRUCTURES: No significant abnormalities. VISUALIZED UPPER ABDOMEN: Normal. OTHER FINDINGS: None. IMPRESSION: No interval acute cardiopulmonary disease appreciated.
--- NOTE | 2017-07-31 10:46 | US ---
HISTORY: Epigastric abdominal pain. COMPARISON: Comparison made with prior abdominal ultrasound dated 05/31/[address] scan abdomen and pelvis dated 07/04/2017. TECHNIQUE: Sonographic evaluation of the abdomen. FINDINGS: LIVER: The liver measures nearly is borderline/mildly enlarged measuring nearly 18 cm in CC dimension. Liver demonstrates smooth contour and slight increased echotexture suggesting fatty infiltration however other infiltrative hepatocellular disease process not excluded. . No mass. No intrahepatic bile duct dilatation. GALLBLADDER: Unremarkable. No gallstones. COMMON BILE DUCT: Measures approximately 4.8 mm. No stones. No dilatation. PANCREAS: Is not visualized on this exam due to body habitus and bowel gas. RIGHT KIDNEY: Right kidney measures approximately 12.6 x 5.6 x 5.5cm. Normal echogenicity. No calculus, mass, or hydronephrosis. LEFT KIDNEY: Left kidney measures approximately 10.6 x 5.0 x 4.6cm. Left kidney is malrotated. Normal echogenicity. No calculus, mass, or hydronephrosis. SPLEEN: Normal in size measuring approximately 9.9 cm. Spleen exhibits normal echotexture without masses collections or calcifications. AORTA: No aneurysmal dilatation. IVC: Unremarkable. OTHER FINDINGS: None. IMPRESSION: Borderline -mild hepatomegaly. Mild fatty infiltration however other infiltrative hepatocellular disease process not excluded. Nonvisualization of the pancreas due to body habitus and bowel gas Malrotation left kidney.
--- NOTE | 2017-07-31 19:10 | CARD ---
APPROVED REPORT EKG Measurement Heart [id number] <Conclusion> Normal sinus rhythm Nonspecific intraventricular conduction delay Borderline ECG
== END 2017-07-31 05:38 | disposition home or self-care (01) ==
LOC: H.ER 20:36
DX: F10.129 Alcohol abuse with intoxication, unspecified (principal); E78.00 Pure hypercholesterolemia, unspecified; F20.9 Schizophrenia, unspecified; F31.9 Bipolar disorder, unspecified; K21.9 Gastro-esophageal reflux disease without esophagitis; Z79.84 Long term (current) use of oral hypoglycemic drugs; Z87.19 Personal history of other diseases of the digestive system
CPT/HCPCS: 71045; 76700; 80053; 80320; 81003; 83690; 84484; 85025; 93005; 96374; 96375; 99282; J2405; J7040

== ENCOUNTER 2017-08-04 18:22 | Emergency (ER) | payer OTHER ==
[2017-08-04 18:22] VITALS: BMI 25.7
[2017-08-04 18:25] VITALS: TEMP 97.5
--- NOTE | 2017-08-04 18:39 | ED PDOC ---
HPI: Psych/Substance Abuse Time Seen by Provider: 08/04/17 18:26 Chief Complaint (Nursing): Alcohol Ingestion Chief Complaint (Provider): ETOH - Denies complaint History Per: Patient History/Exam Limitations: no limitations Additional Complaint(s): 57 yo male who is well known to the ER brought in by EMS for evaluation of alcohol abuse. PT admits to drinking. Pt states he is homeless but he wants to leave. Pt states he does not know why he is here. Past Medical History Reviewed: Historical Data, Nursing Documentation, Vital Signs Vital Signs: Last Vital Signs Temp 97.5 F L 08/04/17 18:24 Pulse 110 H 08/04/17 18:24 Resp 16 08/04/17 18:24 BP 148/93 H 08/04/17 18:24 Pulse Ox 100 08/04/17 18:24 - Medical History PMH: Anemia, Anxiety, Asthma, Back Problems, Bipolar Disorder, COPD, Depression , Gastritis (secondary to ETOH), GERD, Hypercholesterolemia, Pancreatitis ( secondary to ETOH), Schizophrenia, Seizures (secondary to ETOH withdrawal), Chronic Pain (low back pain ) Denies: CHF, Dementia, Diabetes, Emphysema, Parkinson's Disease, Peripheral Edema, Pneumonia, Pulmonary Embolism, Chronic Kidney Disease, Sexually Transmitted Disease, Sleep Apnea - Surgical History Surgical History: Back Surgery Denies: Pacemaker - Family History Family History: States: Diabetes - Living Arrangements Living Arrangements: With Family - Social History Current smoker - smoking cessation education provided: No - Immunization History Hx Tetanus Toxoid Vaccination: Yes (As per patient, TDaP uptodate ( about 3 years ago)) Hx Influenza Vaccination: No Hx Pneumococcal Vaccination: No - Home Medications Home Medications: Ambulatory Orders Medication Instructions Recorded amLODIPine [Norvasc] 5 mg PO DAILY tab 06/01/17 Albuterol HFA [Ventolin HFA 90 2 puff INH RQ8 PRN inhaler 06/14/17 mcg/actuation (8 g)] Albuterol/Ipratropium [Duoneb 3 3 ml INH RQ6 PRN neb 06/14/17 mg/0.5 mg (3 ml) UD] Benzonatate [Tessalon Perles] 100 mg PO TID PRN sgl 06/14/17 Dextrose Oral [Glutose 15] 0 gm PO ONCE PRN tube 06/14/17 Famotidine [Pepcid] 20 mg PO BID #0 tab 06/14/17 Folic Acid 1 mg PO DAILY tab 06/14/17 Gabapentin [Neurontin] 100 mg PO TID 30 Days #90 cap 06/14/17 Glucagon [Glucagen Diagnostic Kit] 0 mg IM STAT PRN vial 06/14/17 Insulin Human Regular [HumuLIN R] 0 units SC ACHS ml 06/14/17 Multimineral/Multivitamin 1 tab PO DAILY 30 Days #30 tab 06/14/17 [Therapeutic-M Tab] QUEtiapine [SEROquel] 300 mg PO HS 30 Days #30 tab 06/14/17 Thiamine [Vitamin B1 Tab] 100 mg PO DAILY 30 Days #30 tab 06/14/17 amLODIPine [Norvasc] 5 mg PO DAILY #0 tab 06/14/17 metFORMIN [glucOPHAGE] 850 mg PO DAILY tab 06/14/17 metFORMIN [glucOPHAGE] 850 mg PO DAILY #90 tab 06/14/17 traZODone [Desyrel] 100 mg PO HS 30 Days #30 tab 06/14/17 - Allergies Allergies/Adverse Reactions: Allergies Allergy/AdvReac Type Severity Reaction Status Date / Time No Known Allergies Allergy Verified 07/08/17 19:15 Review of Systems ROS Statement: Except As Marked, All Systems Reviewed And Found Negative Constitutional: Negative for: Fever, Chills Cardiovascular: Negative for: Chest Pain, Palpitations Respiratory: Negative for: Cough Gastrointestinal: Negative for: Nausea, Vomiting, Abdominal Pain Physical Exam - Reviewed Nursing Documentation Reviewed: Yes Vital Signs Reviewed: Yes - Physical Exam Appears: Positive for: Well, Non-toxic, No Acute Distress Head Exam: Positive for: ATRAUMATIC, NORMAL INSPECTION, NORMOCEPHALIC Skin: Positive for: Normal Color, Warm, DRY Eye Exam: Positive for: Normal appearance ENT: Positive for: Normal ENT Inspection Neck: Positive for: Normal, Painless ROM Cardiovascular/Chest: Positive for: Regular Rate, Rhythm Respiratory: Positive for: CNT, Normal Breath Sounds Gastrointestinal/Abdominal: Positive for: Normal Exam, Bowel Sounds, Soft Back: Positive for: Normal Inspection Extremity: Positive for: Normal ROM Neurologic/Psych: Positive for: Alert, Oriented - Laboratory Results Result Diagrams: 08/04/17 18:49 08/04/17 18:49 - ECG O2 Sat by Pulse Oximetry: 100 Medical Decision Making Medical Decision Making: Endorsed pending sobriety. Disposition - Clinical Impression Clinical Impression: Alcohol intoxication, Hypokalemia - Patient ED Disposition Is Patient to be Admitted: Transfer of Care - Disposition Disposition: Transfer of Care Disposition Time: 20:00 Condition: STABLE Forms: [employer] (Spanish)
[2017-08-04 18:55] LABS: MEAN CELL VOLUME 91.2 fl (80.0-94.0); MEAN CORPUSCULAR HEMOGLOBIN 32.2 pg (27.0-31.0); MEAN CORPUSCULAR HGB CONC 35.3 g/dL (33.0-37.0); RBC 4.52 Mil/uL (4.40-5.90); RED CELL DISTRIBUTION WIDTH 17.2 % (11.5-14.5)
[2017-08-04 19:08] LABS: ALB/GLOB RATIO 1.3 (1.0-2.1); ALBUMIN 4.5 g/dL (3.5-5.0); ALT/SGPT 56 U/L (21-72); AST/SGOT 80 U/L (17-59); BLOOD UREA NITROGEN 10 mg/dl (9-20); CALCIUM 9.1 mg/dL (8.4-10.2); GFR AFRICAN-AMERICAN > 60; GFR NON-AFRICAN AMERICAN > 60; HEMOGLOBIN 14.5 g/dL (12.0-18.0); WHITE BLOOD COUNT 10.2 K/uL (4.8-10.8)
[2017-08-04] MEDS ORDERED: Potassium Chloride 20 mEq ER Tab PO STA (19:13)
--- NOTE | 2017-08-04 19:47 | ED PDOC ---
- Laboratory Results Result Diagrams: 08/04/17 18:49 08/04/17 18:49 - ECG O2 Sat by Pulse Oximetry: 100 Medical Decision Making Medical Decision Making: Case was signed out to mortgage loan underwriter from [employer] pending sobriety. BAL: 397 Patient observed in ED for several hours, his condition remained stable throughout his stay. 6 AM: Patient is awake, alert, has steady gait, stable for discharge Disposition - Clinical Impression Clinical Impression: Alcohol intoxication, Alcohol abuse with intoxication - POA Present On Arrival: None - Disposition Referrals: [facility] [Outside] Disposition: Routine/Home Disposition Time: 06:00 Condition: STABLE Instructions: Alcohol Abuse and Alcoholism (DC) Forms: [employer] (Ugandan)
[2017-08-04] MEDS ORDERED: Potassium Chloride 20 mEq ER Tab PO ONE (21:01)
[2017-08-05 00:10] VITALS: BP 149/90; PULSE 94; RESP 18
[2017-08-05 04:51] VITALS: O2SAT 100
--- NOTE | 2017-08-05 11:37 | RAD ---
HISTORY: Tachycardia COMPARISON: Comparison made with chest radiograph dated 07/31/2017 FINDINGS: LUNGS: No active pulmonary disease. PLEURA: No significant pleural effusion identified, no pneumothorax apparent. CARDIOVASCULAR: Heart size is upper limits of normal/ borderline enlarged right paratracheal density most likely represents overlying great vessels OSSEOUS STRUCTURES: No significant abnormalities. VISUALIZED UPPER ABDOMEN: Normal. OTHER FINDINGS: None. IMPRESSION: No active disease.
--- NOTE | 2017-08-07 12:23 | CARD ---
APPROVED REPORT EKG Measurement Heart [id number] <Conclusion> Normal sinus rhythm Left axis deviation Abnormal ECG
== END 2017-08-05 05:41 | disposition home or self-care (01) ==
LOC: H.ER 18:22
DX: F10.129 Alcohol abuse with intoxication, unspecified (principal); Z59.0 Homelessness; E78.00 Pure hypercholesterolemia, unspecified; E87.6 Hypokalemia; F20.9 Schizophrenia, unspecified; Z79.84 Long term (current) use of oral hypoglycemic drugs; Z87.19 Personal history of other diseases of the digestive system

== ENCOUNTER 2017-08-05 16:41 | Emergency (ER) | payer OTHER ==
[2017-08-05 16:41] VITALS: BMI 25.7
[2017-08-05 16:46] VITALS: RESP 18; TEMP 98; O2SAT 97
[2017-08-05] MEDS ORDERED: Alum-Mag Hydrox-Simethicone Susp (30 mL) PO STA (17:47)
[2017-08-05] MEDS ORDERED: Alum-Mag Hydrox-Simethicone Susp (30 mL) ONE (17:56)
[2017-08-05 18:02] LABS: HEMOGLOBIN 13.5 g/dL (12.0-18.0); MEAN CELL VOLUME 91.3 fl (80.0-94.0); MEAN CORPUSCULAR HEMOGLOBIN 32.5 pg (27.0-31.0); MEAN CORPUSCULAR HGB CONC 35.6 g/dL (33.0-37.0); RBC 4.16 Mil/uL (4.40-5.90); RED CELL DISTRIBUTION WIDTH 17.2 % (11.5-14.5); WHITE BLOOD COUNT 8.6 K/uL (4.8-10.8)
[2017-08-05 18:15] LABS: ALB/GLOB RATIO 1.3 (1.0-2.1); ALBUMIN 4.1 g/dL (3.5-5.0); ALT/SGPT 50 U/L (21-72); AST/SGOT 60 U/L (17-59); BLOOD UREA NITROGEN 11 mg/dl (9-20); CALCIUM 8.7 mg/dL (8.4-10.2); GFR AFRICAN-AMERICAN > 60; GFR NON-AFRICAN AMERICAN > 60; LIPASE 303 U/L (23-300)
--- NOTE | 2017-08-05 18:52 | ED PDOC ---
HPI: Psych/Substance Abuse Time Seen by Provider: 08/05/17 17:02 Chief Complaint (Nursing): Substance Abuse Chief Complaint (Provider): Substance Abuse History Per: Patient, EMS History/Exam Limitations: no limitations Onset/Duration Of Symptoms: Hrs (pior to arrival) Current Symptoms Are (Timing): Still Present Additional Complaint(s): 57 year old male, well known in the ER was brought in by EMS for evaluation of substance abuse. Patient was found by EMS intoxicated prior to arrival, and is reported to being responsive and alert. He also reports epigastric pain upon arrival. Patient offers no other medical complaints at this time. PMD: none provided Past Medical History Reviewed: Historical Data, Nursing Documentation, Vital Signs Vital Signs: Last Vital Signs Temp 98.0 F 08/05/17 16:43 Pulse 100 H 08/05/17 16:43 Resp 18 08/05/17 16:43 BP 149/96 H 08/05/17 16:43 Pulse Ox 97 08/05/17 16:43 - Medical History PMH: Anemia, Anxiety, Asthma, Back Problems, Bipolar Disorder, COPD, Depression , Gastritis (secondary to ETOH), GERD, Hypercholesterolemia, Pancreatitis ( secondary to ETOH), Schizophrenia, Seizures (secondary to ETOH withdrawal), Chronic Pain (low back pain ) Denies: CHF, Dementia, Diabetes, Emphysema, Parkinson's Disease, Peripheral Edema, Pneumonia, Pulmonary Embolism, Chronic Kidney Disease, Sexually Transmitted Disease, Sleep Apnea - Surgical History Surgical History: Back Surgery Denies: Pacemaker - Family History Family History: States: Diabetes - Social History Alcohol: > 2 Drinks/Day - Immunization History Hx Tetanus Toxoid Vaccination: Yes (As per patient, TDaP uptodate ( about 3 years ago)) Hx Influenza Vaccination: No Hx Pneumococcal Vaccination: No - Home Medications Home Medications: Ambulatory Orders Medication Instructions Recorded amLODIPine [Norvasc] 5 mg PO DAILY tab 06/01/17 Albuterol HFA [Ventolin HFA 90 2 puff INH RQ8 PRN inhaler 06/14/17 mcg/actuation (8 g)] Albuterol/Ipratropium [Duoneb 3 3 ml INH RQ6 PRN neb 06/14/17 mg/0.5 mg (3 ml) UD] Benzonatate [Tessalon Perles] 100 mg PO TID PRN sgl 06/14/17 Dextrose Oral [Glutose 15] 0 gm PO ONCE PRN tube 06/14/17 Famotidine [Pepcid] 20 mg PO BID #0 tab 06/14/17 Folic Acid 1 mg PO DAILY tab 06/14/17 Gabapentin [Neurontin] 100 mg PO TID 30 Days #90 cap 06/14/17 Glucagon [Glucagen Diagnostic Kit] 0 mg IM STAT PRN vial 06/14/17 Insulin Human Regular [HumuLIN R] 0 units SC ACHS ml 06/14/17 Multimineral/Multivitamin 1 tab PO DAILY 30 Days #30 tab 06/14/17 [Therapeutic-M Tab] QUEtiapine [SEROquel] 300 mg PO HS 30 Days #30 tab 06/14/17 Thiamine [Vitamin B1 Tab] 100 mg PO DAILY 30 Days #30 tab 06/14/17 amLODIPine [Norvasc] 5 mg PO DAILY #0 tab 06/14/17 metFORMIN [glucOPHAGE] 850 mg PO DAILY tab 06/14/17 metFORMIN [glucOPHAGE] 850 mg PO DAILY #90 tab 06/14/17 traZODone [Desyrel] 100 mg PO HS 30 Days #30 tab 06/14/17 - Allergies Allergies/Adverse Reactions: Allergies Allergy/AdvReac Type Severity Reaction Status Date / Time No Known Allergies Allergy Verified 08/05/17 16:46 Review of Systems ROS Statement: Except As Marked, All Systems Reviewed And Found Negative Gastrointestinal: Positive for: Abdominal Pain (epigastric pain) Physical Exam - Reviewed Nursing Documentation Reviewed: Yes Vital Signs Reviewed: Yes - Physical Exam Appears: Positive for: Non-toxic, No Acute Distress Head Exam: Positive for: ATRAUMATIC, NORMAL INSPECTION, NORMOCEPHALIC Skin: Positive for: Normal Color, Warm, Dry Eye Exam: Positive for: Normal appearance Neck: Positive for: Normal, Painless ROM Cardiovascular/Chest: Positive for: Regular Rate, Rhythm Respiratory: Positive for: Normal Breath Sounds. Negative for: Respiratory Distress Gastrointestinal/Abdominal: Positive for: Normal Exam, Soft. Negative for: Tenderness Back: Positive for: Normal Inspection. Negative for: L CVA Tenderness, R CVA Tenderness, Vertebral Tenderness Extremity: Positive for: Normal ROM. Negative for: Deformity, Swelling Neurologic/Psych: Positive for: Alert - Laboratory Results Result Diagrams: 08/05/17 17:53 08/05/17 17:53 - ECG O2 Sat by Pulse Oximetry: 97 (RA) Pulse Ox Interpretation: Normal Medical Decision Making Medical Decision Makin - Pt states he does not want to stay in ER. Labs reviewed. Normal. Disposition - Clinical Impression Clinical Impression: Abdominal pain - Patient ED Disposition Is Patient to be Admitted: No - Disposition Disposition: Routine/Home Disposition Time: 18:52 Condition: STABLE Forms: [employer] (Czech)
[2017-08-05 18:55] VITALS: BP 139/88; PULSE 87
== END 2017-08-05 18:54 | disposition home or self-care (01) ==
LOC: H.ER 16:41
DX: R10.13 Epigastric pain (principal); E78.00 Pure hypercholesterolemia, unspecified; F20.9 Schizophrenia, unspecified; F31.9 Bipolar disorder, unspecified; F41.9 Anxiety disorder, unspecified; J44.9 Chronic obstructive pulmonary disease, unspecified; K21.9 Gastro-esophageal reflux disease without esophagitis; K85.90 Acute pancreatitis without necrosis or infection, unspecified; Z79.84 Long term (current) use of oral hypoglycemic drugs; F10.10 Alcohol abuse, uncomplicated

== ENCOUNTER 2017-08-14 19:54 | Emergency (ER) | payer OTHER ==
[2017-08-14 19:54] VITALS: BMI 25.7
[2017-08-14 19:59] VITALS: RESP 18
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
[2017-08-14 23:57] VITALS: BP 139/86; PULSE 85; TEMP 97.8
[2017-08-15 00:26] VITALS: O2SAT 96
== END 2017-08-15 00:38 | disposition home or self-care (01) ==
LOC: H.ER 19:54
DX: F10.129 Alcohol abuse with intoxication, unspecified (principal); E11.9 Type 2 diabetes mellitus without complications; E78.00 Pure hypercholesterolemia, unspecified; F20.9 Schizophrenia, unspecified; F31.9 Bipolar disorder, unspecified; F41.9 Anxiety disorder, unspecified; Y90.8 Blood alcohol level of 240 mg/100 ml or more; Z79.84 Long term (current) use of oral hypoglycemic drugs; Z87.19 Personal history of other diseases of the digestive system; K21.9 Gastro-esophageal reflux disease without esophagitis; K85.90 Acute pancreatitis without necrosis or infection, unspecified

== ENCOUNTER 2017-08-16 18:14 | Observation (INO) | payer OTHER ==
[2017-08-16 18:14] VITALS: BMI 25.7
[2017-08-16 18:17] VITALS: O2SAT 97
[2017-08-16] MEDS ORDERED: Sodium Chloride 0.9% 1,000 ML IV STA (21:32)
[2017-08-16] MEDS ORDERED: DiphenhydrAMINE 50 mg/ml Inj IV STA (21:32)
--- NOTE | 2017-08-16 21:36 | ED PDOC ---
HPI: Abdomen Time Seen by Provider: 08/16/17 21:22 Chief Complaint (Nursing): Abdominal Pain Chief Complaint (Provider): abdominal pain History Per: Patient History/Exam Limitations: no limitations Onset/Duration Of Symptoms: Days Current Symptoms Are (Timing): Still Present Location Of Pain/Discomfort: Epigastric Quality Of Discomfort: Stabbing Additional History Per: Patient Additional Complaint(s): 57 y/o male presents with epigastric abdominal pain x 3 days. Denies fever, nausea/vomiting, chest pain, shortness of breath, palpitations, changes in bowel movements, urinary symptoms. Patient also notes pruritic rash to neck and upper back x 1 day. DEnies known allergen. Past Medical History Reviewed: Historical Data, Nursing Documentation, Vital Signs Vital Signs: Last Vital Signs Temp 98.2 F 08/17/17 04:21 Pulse 85 08/17/17 04:21 Resp 19 08/17/17 04:21 BP 157/95 H 08/17/17 04:21 Pulse Ox 97 08/17/17 04:20 - Medical History PMH: Anemia, Anxiety, Asthma, Back Problems, Bipolar Disorder, COPD, Depression , Diabetes, Gastritis (secondary to ETOH), GERD, Hypercholesterolemia, Pancreatitis (secondary to ETOH), Schizophrenia, Seizures (secondary to ETOH withdrawal), Chronic Pain (low back pain ) Denies: CHF, Dementia, Emphysema, Parkinson's Disease, Peripheral Edema, Pneumonia, Pulmonary Embolism, Chronic Kidney Disease, Sexually Transmitted Disease, Sleep Apnea - Surgical History Surgical History: Back Surgery Denies: Pacemaker - Family History Family History: States: Diabetes - Immunization History Hx Tetanus Toxoid Vaccination: Yes (As per patient, TDaP uptodate ( about 3 years ago)) Hx Influenza Vaccination: No Hx Pneumococcal Vaccination: No - Home Medications Home Medications: Ambulatory Orders Medication Instructions Recorded Albuterol HFA [Ventolin HFA 90 2 puff INH RQ8 PRN inhaler 06/14/17 mcg/actuation (8 g)] Albuterol/Ipratropium [Duoneb 3 3 ml INH RQ6 PRN neb 06/14/17 mg/0.5 mg (3 ml) UD] Benzonatate [Tessalon Perles] 100 mg PO TID PRN sgl 06/14/17 Dextrose Oral [Glutose 15] 0 gm PO ONCE PRN tube 06/14/17 Famotidine [Pepcid] 20 mg PO BID #0 tab 06/14/17 Folic Acid 1 mg PO DAILY tab 06/14/17 Gabapentin [Neurontin] 100 mg PO TID 30 Days #90 cap 06/14/17 Glucagon [Glucagen Diagnostic Kit] 0 mg IM STAT PRN vial 06/14/17 Insulin Human Regular [HumuLIN R] 0 units SC ACHS ml 06/14/17 Multimineral/Multivitamin 1 tab PO DAILY 30 Days #30 tab 06/14/17 [Therapeutic-M Tab] QUEtiapine [SEROquel] 300 mg PO HS 30 Days #30 tab 06/14/17 Thiamine [Vitamin B1 Tab] 100 mg PO DAILY 30 Days #30 tab 06/14/17 amLODIPine [Norvasc] 5 mg PO DAILY #0 tab 06/14/17 metFORMIN [glucOPHAGE] 850 mg PO DAILY #90 tab 06/14/17 traZODone [Desyrel] 100 mg PO HS 30 Days #30 tab 06/14/17 - Allergies Allergies/Adverse Reactions: Allergies Allergy/AdvReac Type Severity Reaction Status Date / Time No Known Allergies Allergy Verified 08/05/17 16:46 Review of Systems ROS Statement: Except As Marked, All Systems Reviewed And Found Negative Gastrointestinal: Positive for: Abdominal Pain Skin: Positive for: Rash Physical Exam - Reviewed Nursing Documentation Reviewed: Yes Vital Signs Reviewed: Yes - Physical Exam Appears: Positive for: Well, Non-toxic, No Acute Distress Head Exam: Positive for: ATRAUMATIC, NORMAL INSPECTION, NORMOCEPHALIC Skin: Positive for: Rash (urticaria noted surrounding neck/upper chest, upper back. No pustules, drainage, temp change noted) Eye Exam: Positive for: Normal appearance Cardiovascular/Chest: Positive for: Regular Rate, Rhythm Respiratory: Positive for: Normal Breath Sounds Gastrointestinal/Abdominal: Positive for: Bowel Sounds, Soft, Tenderness ( epigastric, ruq), Hernia (umbilical) Back: Positive for: Normal Inspection Extremity: Positive for: Normal ROM Neurologic/Psych: Positive for: Alert, Oriented - Laboratory Results Result Diagrams: 08/16/17 23:19 08/16/17 23:19 - ECG O2 Sat by Pulse Oximetry: 97 - Radiology X-Ray: Viewed By Sd X-Ray Interpretation: No Acute Disease - Progress ED Course And Treament: labs, urine, IV fluids, IV pepcid, IV benadryl, abdomen u/s EXAM: US Abdomen Limited, Right Upper Quadrant CLINICAL HISTORY: 57 years old, male; Pain; Abdominal pain; Epigastric; Additional info: Upper abd pain TECHNIQUE: Real-time ultrasound of the right upper quadrant with image documentation. COMPARISON: US - ABDOMEN COMPLETE 2017-07-30 22:09 FINDINGS: Liver: Enlarged, 19.0 cm. Fatty infiltration. No mass. No intrahepatic ductal dilatation. Gallbladder: No gallstones. No wall thickening. No pericholecystic fluid. No sonographic Pereira's sign. Common bile duct: No dilatation. No stones. Pancreas: Obscured by overlying bowel gas. Right kidney: Normal echogenicity. No hydronephrosis. IMPRESSION: 1. No acute findings. 2. Non-acute findings are described above. Ct abd/pelvis ordered for elevated lipase. EXAM: CT Abdomen and Pelvis With Intravenous Contrast CLINICAL HISTORY: 57 years old, male; Pain; Abdominal pain; Other: Abd pain; Additional info: Abd pain, elevated lipase TECHNIQUE: Axial computed tomography images of the abdomen and pelvis with intravenous contrast. All CT scans at this facility use one or more dose reduction techniques, viz.: automated exposure control; ma/kV adjustment per patient size (including targeted exams where dose is matched to indication; i.e. head); or iterative reconstruction technique. Coronal and sagittal reformatted images were created and reviewed. CONTRAST: 95 mL of omnipaque 300 administered intravenously. COMPARISON: CT - ABD PELVIS W/O PO OR IV CONT 2017-07-04 09:35 FINDINGS: Limitations: Motion artifact - mild. Lower thorax: No acute findings. ABDOMEN: Liver: Fatty infiltration. Gallbladder and bile ducts: No calcified stones. No ductal dilation. Pancreas: Minimal stranding/mild fluid about duodenum/head of pancreas. No definite pancreatic necrosis. No discrete peripancreatic collection. Spleen: No splenomegaly. Adrenals: No mass. Kidneys and ureters: [id number] stranding/fascial thickening about kidneys , slightly increased from previous examination. Malrotated, ectopic left kidney within lower abdomen. No hydronephrosis. Stomach and bowel: Scattered diverticula within colon. No associated inflammatory stranding. Apparent mild mural thickening of duodenum. [id number] mural thickening of descending, sigmoid colon. No obstruction. Appendix: No findings to suggest acute appendicitis. PELVIS: Bladder: Unremarkable. Reproductive: Unremarkable as visualized. ABDOMEN and PELVIS: Intraperitoneal space: No significant fluid collection. No free air. Bones/joints: Few healing/healed rib fractures. Degenerative changes of spine. Vertebroplasty upper lumbar spine. Soft tissues: Tiny umbilical hernia containing sidewall of bowel. Tiny inguinal hernias containing fat. Vasculature: Patent splenic artery and vein. Mild atherosclerotic disease. No aneurysm. Lymph nodes: No pathologically enlarged lymph nodes. IMPRESSION: 1. Findings compatible with acute pancreatitis +/- duodenitis. 2. Probable colitis, nonspecific. Consider inflammatory or infectious etiologies. 3. Incidental/non-acute findings are described above. Patient afebrile, normal WBC, no complaints of vomiting/diarrhea. No indication for antibiotics at this time Case discussed with FP resident Dr. Espan[place] for placement in observation for IV hydration Disposition - Clinical Impression Clinical Impression: Pancreatitis, alcoholic, acute, Urticaria - Patient ED Disposition Is Patient to be Admitted: Yes - Disposition Disposition Time: 03:20 Condition: FAIR
[2017-08-16] MEDS ORDERED: DiphenhydrAMINE 50 mg/ml Inj ONE (23:18)
[2017-08-16 23:23] LABS: BASO % 0.8 % (0.0-2.0); EOS # 0.1 K/uL (0.0-0.7); EOS % 1.9 % (0.0-4.0); HEMOGLOBIN 12.9 g/dL (12.0-18.0); LYMPH # 2.7 K/uL (1.0-4.3); LYMPH % 45.8 % (20.0-40.0); MEAN CELL VOLUME 92.6 fl (80.0-94.0); MEAN CORPUSCULAR HEMOGLOBIN 32.6 pg (27.0-31.0); MEAN CORPUSCULAR HGB CONC 35.2 g/dL (33.0-37.0); MEAN PLATELET VOLUME 7.4 fl (7.2-11.7); MONO # 0.3 K/uL (0.0-0.8); MONO % 5.6 % (0.0-10.0); NEUT # 2.7 K/uL (1.8-7.0); NEUT % 45.9 % (50.0-75.0); NRBC % 0.3 % (0.0-0.0); RBC 3.97 Mil/uL (4.40-5.90); RED CELL DISTRIBUTION WIDTH 17.5 % (11.5-14.5)
[2017-08-16 23:30] LABS: URINE BACTERIA RARE (<OCC); URINE BILIRUBIN NEGATIVE (NEGATIVE); URINE BLOOD NEGATIVE (NEGATIVE); URINE CALCIUM OXALATE CRYSTALS OCC /hpf (<OCC); URINE CLARITY CLEAR (Clear); URINE COLOR YELLOW (YELLOW); URINE GLUCOSE (UA) 50 mg/dL (Normal); URINE LEUKOCYTE ESTERASE NEG Leu/uL (Negative); URINE PROTEIN >=500 mg/dL (NEGATIVE); URINE UROBILINOGEN 0.2-1.0 mg/dL (0.2-1.0)
[2017-08-16 23:39] LABS: ALB/GLOB RATIO 1.1 (1.0-2.1); ALBUMIN 3.8 g/dL (3.5-5.0); ALT/SGPT 47 U/L (21-72); AST/SGOT 73 U/L (17-59); BLOOD UREA NITROGEN 9 mg/dl (9-20); CALCIUM 8.7 mg/dL (8.4-10.2); GFR AFRICAN-AMERICAN > 60; GFR NON-AFRICAN AMERICAN > 60; LIPASE 646 U/L (23-300)
[2017-08-16] MEDS ORDERED: Potassium Chloride 20 mEq ER Tab PO ONE (23:56)
--- NOTE | 2017-08-17 00:05 | US ---
EXAM: US Abdomen Limited, Right Upper Quadrant CLINICAL HISTORY: 57 years old, male; Pain; Abdominal pain; Epigastric; Additional info: Upper abd pain TECHNIQUE: Real-time ultrasound of the right upper quadrant with image documentation. COMPARISON: US - ABDOMEN COMPLETE 2017-07-30 22:09 FINDINGS: Liver: Enlarged, 19.0 cm. Fatty infiltration. No mass. No intrahepatic ductal dilatation. Gallbladder: No gallstones. No wall thickening. No pericholecystic fluid. No sonographic Pereira's sign. Common bile duct: No dilatation. No stones. Pancreas: Obscured by overlying bowel gas. Right kidney: Normal echogenicity. No hydronephrosis. IMPRESSION: 1.No acute findings. 2.Non-acute findings are described above.
[2017-08-17] MEDS ORDERED: Potassium Chloride 20 mEq ER Tab PO ONE ×2 (02:24→18:15)
[2017-08-17] MEDS ORDERED: Iohexol 300 100 ML IJ ONE (02:30)
--- NOTE | 2017-08-17 03:21 | CT ---
EXAM: CT Abdomen and Pelvis With Intravenous Contrast CLINICAL HISTORY: 57 years old, male; Pain; Abdominal pain; Other: Abd pain; Additional info: Abd pain, elevated lipase TECHNIQUE: Axial computed tomography images of the abdomen and pelvis with intravenous contrast. All CT scans at this facility use one or more dose reduction techniques, viz.: automated exposure control; ma/kV adjustment per patient size (including targeted exams where dose is matched to indication; i.e. head); or iterative reconstruction technique. Coronal and sagittal reformatted images were created and reviewed. CONTRAST: 95 mL of omnipaque 300 administered intravenously. COMPARISON: CT - ABD PELVIS W/O PO OR IV CONT 2017-07-04 09:35 FINDINGS: Limitations: Motion artifact - mild. Lower thorax: No acute findings. ABDOMEN: Liver: Fatty infiltration. Gallbladder and bile ducts: No calcified stones. No ductal dilation. Pancreas: Minimal stranding/mild fluid about duodenum/head of pancreas. No definite pancreatic necrosis. No discrete peripancreatic collection. Spleen: No splenomegaly. Adrenals: No mass. Kidneys and ureters: Btpu-mr-euhnqkdy stranding/fascial thickening about kidneys, slightly increased from previous examination. Malrotated, ectopic left kidney within lower abdomen. No hydronephrosis. Stomach and bowel: Scattered diverticula within colon. No associated inflammatory stranding. Apparent mild mural thickening of duodenum. Kezz-[id number]-[id number] mural thickening of descending, sigmoid colon. No obstruction. Appendix: No findings to suggest acute appendicitis. PELVIS: Bladder: Unremarkable. Reproductive: Unremarkable as visualized. ABDOMEN and PELVIS: Intraperitoneal space: No significant fluid collection. No free air. Bones/joints: Few healing/healed rib fractures. Degenerative changes of spine. Vertebroplasty upper lumbar spine. Soft tissues: Tiny umbilical hernia containing sidewall of bowel. Tiny inguinal hernias containing fat. Vasculature: Patent splenic artery and vein. Mild atherosclerotic disease. No aneurysm. Lymph nodes: No pathologically enlarged lymph nodes. IMPRESSION: 1. Findings compatible with acute pancreatitis +/- duodenitis. 2. Probable colitis, nonspecific. Consider inflammatory or infectious etiologies. 3. Incidental/non-acute findings are described above.
[2017-08-17] MEDS ORDERED: Lactated Ringer's 1,000 ML IV SCH (03:30)
[2017-08-17] MEDS ORDERED: Lactated Ringer's 1,000 ML IV STA (03:45)
[2017-08-17] MEDS ORDERED: HYDROmorphone 0.5 mg/0.5 ml ISec IVP PRN (03:51)
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
[2017-08-17] MEDS: Lactated Ringer's 1,000 ML IV SCH ×2 (05:03→05:42)
--- NOTE | 2017-08-17 07:24 | RAD ---
HISTORY: admit COMPARISON: Portable chest 08/04/2017. FINDINGS: LUNGS: No active pulmonary disease. Improved inspiratory volume noted. PLEURA: No significant pleural effusion identified, no pneumothorax apparent. CARDIOVASCULAR: Normal. OSSEOUS STRUCTURES: No significant abnormalities. VISUALIZED UPPER ABDOMEN: Normal. OTHER FINDINGS: None. IMPRESSION: No interval acute cardiopulmonary disease appreciated.
[2017-08-17] MEDS ORDERED: Enoxaparin 40 mg Syringe SC SCH (09:00)
[2017-08-17] MEDS ORDERED: Diphenhydramine 1% CREAM TOP PRN (09:20)
[2017-08-17 11:23] LABS: BLOOD UREA NITROGEN 5 mg/dl (9-20); GFR AFRICAN-AMERICAN > 60; GFR NON-AFRICAN AMERICAN > 60
[2017-08-17 11:25] LABS: CALCIUM 7.9 mg/dL (8.4-10.2)
[2017-08-17] MEDS ORDERED: Magnesium Sulfate 2 gm/50 ml 2 GM/50 ML BAG IVPB ONE (12:39)
--- NOTE | 2017-08-17 14:44 | CARD ---
APPROVED REPORT EKG Measurement Heart [id number] <Conclusion> Sinus tachycardia Incomplete right bundle branch block Nonspecific T wave abnormality Abnormal ECG
[2017-08-17 16:04] VITALS: RESP 20
[2017-08-17 17:39] VITALS: BP 161/99; PULSE 99; TEMP 98.1
[2017-08-17 17:57] LABS: BLOOD UREA NITROGEN 3 mg/dl (9-20); CALCIUM 8.7 mg/dL (8.4-10.2); GFR AFRICAN-AMERICAN > 60; GFR NON-AFRICAN AMERICAN > 60
--- NOTE | 2017-08-17 21:22 | CP.PCM.DIS ---
Provider - Provider Date of Admission: 08/17/17 03:24 Attending physician: Cande Palacios MD Primary care physician: none Time Spent in preparation of Discharge (in minutes): 35 Diagnosis - Discharge Diagnosis (1) Pancreatitis Status: Resolved Comment: Pt made NPO, hydrated with lactated ringers at 250 ml/hr. Pain resolved. Patient tolerated PO well in the morning. (2) Hypokalemia Status: Resolved Comment: K 2.9 on admission; magnesium found to be 0.9. After Mg repletion, successful K repletion. (3) Hypomagnesemia Status: Resolved Comment: Mg found to be 0.9; repleted with 2gm IV magnesium sulfate. Hospital Course - Lab Results Lab Results: Most Recent Lab Values WBC 6.0 K/uL (4.8-10.8) 08/16/17 23: RBC 3.97 Mil/uL (4.40-5.90) L 08/16/17 23:19 Hgb 12.9 g/dL (12.0-18.0) 08/16/17 23: Hct 36.7 % (35.0-51.0) 08/16/17 23:19 MCV 92.6 fl (80.0-94.0) 08/16/17 23:19 MCH 32.6 pg (27.0-31.0) H 08/16/17 23:19 MCHC 35.2 g/dL (33.0-37.0) 08/16/17 23:19 RDW 17.5 % (11.5-14.5) H 08/16/17 23:19 Plt Count 156 K/uL (130-400) D 08/16/17 23:19 MPV 7.4 fl (7.2-11.7) 08/16/17 23:19 Neut % (Auto) 45.9 % (50.0-75.0) L 08/16/17 23: Lymph % (Auto) 45.8 % (20.0-40.0) H 08/16/17 23:19 [place] % (Auto) 5.6 % (0.0-10.0) 08/16/17 23: Eos % (Auto) 1.9 % (0.0-4.0) 08/16/17 23:19 Baso % (Auto) 0.8 % (0.0-2.0) 08/16/17 23:19 Neut # (Auto) 2.7 K/uL (1.8-7.0) 08/16/17 23:19 Lymph # (Auto) 2.7 K/uL (1.0-4.3) 08/16/17 23:19 [place] # (Auto) 0.3 K/uL (0.0-0.8) 08/16/17 23:19 Eos # (Auto) 0.1 K/uL (0.0-0.7) 08/16/17 23:19 Baso # (Auto) 0.0 K/uL (0.0-0.2) 08/16/17 23:19 Sodium 137 mmol/l (132-148) 08/17/17 17:30 Potassium 3.1 MMOL/L (3.6-5.0) L 08/17/17 17:30 Chloride 96 mmol/L (98-107) L 08/17/17 17:30 Carbon Dioxide 25 mmol/L (22-30) 08/17/17 17:30 Anion Gap 19 (10-20) 08/17/17 17:30 BUN 3 mg/dl (9-20) L 08/17/17 17:30 Creatinine 0.6 mg/dl (0.8-1.5) L 08/17/17 17:30 Est GFR ( Amer) > 60 08/17/17 17:30 Est GFR (Non-Af Amer) > 60 08/17/17 17:30 POC Glucose (mg/dL) 121 mg/dL (65-110) H 08/17/17 03:55 Random Glucose 148 mg/dL (75-110) H 08/17/17 17:30 Calcium 8.7 mg/dL (8.4-10.2) 08/17/17 17:30 Magnesium 0.9 MG/DL (1.6-2.3) L* D 08/17/17 10:15 Total Bilirubin 0.5 mg/dl (0.2-1.3) 08/16/17 23:19 AST 73 U/L (17-59) H D 08/16/17 23:19 ALT 47 U/L (21-72) 08/16/17 23:19 Alkaline Phosphatase 192 U/L (38-126) H 08/16/17 23: Total Protein 7.2 G/DL (6.3-8.2) 08/16/17 Albumin 3.8 g/dL (3.5-5.0) 08/16/17 Globulin 3.3 gm/dL (2.2-3.9) 08/16/17: Albumin/Globulin Ratio 1.1 (1.0-2.1) 08/16/17: Lipase 646 U/L (23-300) H 08/16/17 23: Urine Color Yellow (YELLOW) 08/16/17: Urine Clarity Clear (Clear) 08/16/17 Urine pH 6.0 (5.0-8.0) 08/16/17 Ur Specific [place] 1.025 (1.003-1.030) 08/16/17 Urine Protein >=500 mg/dL (NEGATIVE) 08/16/17 Urine Glucose (UA) 50 mg/dL (Normal) 08/16/17 Urine Ketones Trace mg/dL (NEGATIVE) 08/16/17: Urine Blood Negative (NEGATIVE) 08/16/17: Urine Nitrate Negative (NEGATIVE) 08/16/17 Urine Bilirubin Negative (NEGATIVE) 08/16/17: Urine Urobilinogen 0.2-1.0 mg/dL (0.2-1.0) 08/16/17: Ur Leukocyte Esterase Neg [place]/uL (Negative) 08/16/17 Urine RBC (Auto) 1 /hpf (0-3) 08/16/17: Urine Microscopic WBC 1 /hpf (0-5) 08/16/17: Calcium Oxalate Crystal Occ /hpf (<OCC) H 08/16/17 Urine Bacteria Rare (<OCC) 08/16/17: Alcohol, Quantitative 174 mg/dl (0-10) H 08/16/17: - Hospital Course Hospital Course: Pt admitted to [facility] floor for pancreatitis, well known to this service for multiple similar admissions. Made NPO, hydrated with lactated ringers at 250 ml/ hr. Pain resolved. Patient tolerated PO well in the morning. K 2.9 on admission ; magnesium found to be 0.9. After Mg repletion, successful K repletion. Pt comfortable, pain resolved. No complaints when seen today in am and midday. Discharge Exam - Head Exam Head Exam: ATRAUMATIC, NORMAL INSPECTION, NORMOCEPHALIC - Eye Exam Eye Exam: Normal appearance - ENT Exam ENT Exam: Mucous Membranes Moist - Respiratory Exam Respiratory Exam: Clear to PA & Lateral, NORMAL BREATHING PATTERN - Cardiovascular Exam Cardiovascular Exam: REGULAR RHYTHM, +S1, +S2 - GI/Abdominal Exam GI & Abdominal Exam: Normal Bowel Sounds, Soft, Unremarkable - Extremities Exam Extremities exam: normal inspection - Neurological Exam Neurological exam: Alert, Normal Gait - Skin Skin Exam: Dry, Normal Color, Warm Discharge Plan - Discharge Medications Prescriptions: Lipase/Protease/Amylase [Saulo Greco 3,000 Units Capsule] 1 each PO AC #30 capsule.dr - Follow Up Plan Condition: STABLE Disposition: HOME/ ROUTINE Patient education suggested?: Yes Instructions: Pancreatitis (DC) Additional Instructions: Please go to clinic at scheduled appt. Return to ED if symptoms return. Referrals: [facility] [Outside] - 08/24/17 11:00 am
[2017-08-18] MEDS ORDERED: Amylase/Lipase/Protease 5,000 Units ECC PO SCH (07:30)
== END 2017-08-17 18:45 | disposition home or self-care (01) ==
LOC: H.ER 18:14 → H.ERHOLD 08-17 03:24 → H.MEDSURG1 08-17 04:42
PROVIDERS: ADMIT Family Medicine Geriatric Medicine; ATTEND Family Medicine Geriatric Medicine
DX: K85.20 Alcohol induced acute pancreatitis without necrosis or infection (principal); E87.6 Hypokalemia; E83.42 Hypomagnesemia; F17.200 Nicotine dependence, unspecified, uncomplicated; K21.9 Gastro-esophageal reflux disease without esophagitis; E78.00 Pure hypercholesterolemia, unspecified; E11.9 Type 2 diabetes mellitus without complications; J44.9 Chronic obstructive pulmonary disease, unspecified; F31.9 Bipolar disorder, unspecified; F41.9 Anxiety disorder, unspecified; G89.29 Other chronic pain; F10.10 Alcohol abuse, uncomplicated; Y90.6 Blood alcohol level of 120-199 mg/100 ml; L50.9 Urticaria, unspecified; F20.9 Schizophrenia, unspecified
CPT/HCPCS: 36415; 71045; 74177; 76705; 80048; 80053; 80320; 81003; 82948; 83690; 83735; 85025; 93005; 96361; 96365; 96372; 96375; 99285; G0378; J1200; J1650; J3480; J7040; J7120; Q9967

== ENCOUNTER 2017-08-20 22:04 | Emergency (ER) | payer OTHER ==
[2017-08-20 22:04] VITALS: BMI 25.7
[2017-08-20] MEDS ORDERED: Albuterol-Ipratrop 3 mg / 0.5 (3 ml) UD INH STA ×2 (22:51→22:52)
[2017-08-20] MEDS ORDERED: Albuterol-Ipratrop 3 mg / 0.5 (3 ml) UD ONE (23:11)
--- NOTE | 2017-08-21 01:19 | ED PDOC ---
HPI: SOB/CHF/COPD Time Seen by Provider: 08/20/17 22:10 Chief Complaint (Nursing): Respiratory Distress Chief Complaint (Provider): SOB - States he ran out of albuterol History Per: Patient History/Exam Limitations: no limitations Onset/Duration Of Symptoms: Mins Current Symptoms Are (Timing): Still Present Context: Pt states he was eating dinner when he felt SOB Associated Symptoms: denies: Fever, Chills, Sweating, Chest Pain, Bloody Cough, Productive Cough, Heart Racing, Leg/Calf Pain, Ankle/Leg Swelling, Dizziness, Light-headedness, Anxiety, Tingling In Hands Or Face, Musle Spasms In Hands Or Feet Additional Complaint(s): Pt denies chest pain, dizziness or cough. Pt states that ran out of his medications for asthma. Past Medical History Reviewed: Historical Data, Nursing Documentation, Vital Signs Vital Signs: Last Vital Signs Temp 97.8 F 08/20/17 22:06 Pulse 107 H 08/20/17 22:06 Resp 24 08/20/17 22:06 BP 138/83 08/20/17 22:06 Pulse Ox 97 08/21/17 01:20 - Medical History PMH: Anemia, Anxiety, Asthma, Back Problems, Bipolar Disorder, COPD, Depression , Diabetes, Gastritis (secondary to ETOH), GERD, Hypercholesterolemia, Pancreatitis (secondary to ETOH), Schizophrenia, Seizures (secondary to ETOH withdrawal), Chronic Pain (low back pain ) Denies: CHF, Dementia, Emphysema, Parkinson's Disease, Peripheral Edema, Pneumonia, Pulmonary Embolism, Chronic Kidney Disease, Sexually Transmitted Disease, Sleep Apnea - Surgical History Surgical History: Back Surgery Denies: Pacemaker - Family History Family History: States: Diabetes - Immunization History Hx Tetanus Toxoid Vaccination: Yes (As per patient, TDaP uptodate ( about 3 years ago)) Hx Influenza Vaccination: No Hx Pneumococcal Vaccination: No - Home Medications Home Medications: Ambulatory Orders Medication Instructions Recorded Albuterol HFA [Ventolin HFA 90 2 puff INH RQ8 PRN inhaler 06/14/17 mcg/actuation (8 g)] Albuterol/Ipratropium [Duoneb 3 3 ml INH RQ6 PRN neb 06/14/17 mg/0.5 mg (3 ml) UD] Benzonatate [Tessalon Perles] 100 mg PO TID PRN sgl 06/14/17 Dextrose Oral [Glutose 15] 0 gm PO ONCE PRN tube 06/14/17 Famotidine [Pepcid] 20 mg PO BID #0 tab 06/14/17 Folic Acid 1 mg PO DAILY tab 06/14/17 Gabapentin [Neurontin] 100 mg PO TID 30 Days #90 cap 06/14/17 Glucagon [Glucagen Diagnostic Kit] 0 mg IM STAT PRN vial 06/14/17 Insulin Human Regular [HumuLIN R] 0 units SC ACHS ml 06/14/17 Multimineral/Multivitamin 1 tab PO DAILY 30 Days #30 tab 06/14/17 [Therapeutic-M Tab] QUEtiapine [SEROquel] 300 mg PO HS 30 Days #30 tab 06/14/17 Thiamine [Vitamin B1 Tab] 100 mg PO DAILY 30 Days #30 tab 06/14/17 amLODIPine [Norvasc] 5 mg PO DAILY #0 tab 06/14/17 metFORMIN [glucOPHAGE] 850 mg PO DAILY #90 tab 06/14/17 traZODone [Desyrel] 100 mg PO HS 30 Days #30 tab 06/14/17 Lipase/Protease/Amylase [Creon Dr 1 each PO AC #30 capsule. 08/17/17 3,000 Units Capsule] - Allergies Allergies/Adverse Reactions: Allergies Allergy/AdvReac Type Severity Reaction Status Date / Time No Known Allergies Allergy Verified 08/05/17 16:46 Review of Systems ROS Statement: Except As Marked, All Systems Reviewed And Found Negative Constitutional: Negative for: Fever, Chills Cardiovascular: Positive for: Palpitations. Negative for: Chest Pain Respiratory: Positive for: Wheezing. Negative for: Cough Physical Exam - Reviewed Nursing Documentation Reviewed: Yes Vital Signs Reviewed: Yes - Physical Exam Appears: Positive for: Well, Non-toxic, No Acute Distress Head Exam: Positive for: ATRAUMATIC, NORMAL INSPECTION, NORMOCEPHALIC Skin: Positive for: Normal Color, Warm, DRY Eye Exam: Positive for: Normal appearance ENT: Positive for: Normal ENT Inspection Neck: Positive for: Normal, Painless ROM Cardiovascular/Chest: Positive for: Regular Rate, Rhythm Respiratory: Positive for: Wheezing (Diffuse ). Negative for: Normal Breath Sounds, Accessory Muscle Use, Respiratory Distress Gastrointestinal/Abdominal: Positive for: Normal Exam, Bowel Sounds, Soft Back: Positive for: Normal Inspection Extremity: Positive for: Normal ROM Neurologic/Psych: Positive for: Alert, Oriented - ECG O2 Sat by Pulse Oximetry: 97 Pulse Ox Interpretation: Normal Medical Decision Making Medical Decision Making: CXr - No acute findings. Pt up and out of bed asking for food Disposition - Clinical Impression Clinical Impression: Asthma - Patient ED Disposition Is Patient to be Admitted: No Counseled Patient/Family Regarding: Diagnosis, Need For Followup - Disposition Disposition: Routine/Home Disposition Time: 02:20 Condition: GOOD Forms: [employer] (Kyrgyz)
[2017-08-21 04:07] VITALS: RESP 17
[2017-08-21 06:14] VITALS: BP 136/75; PULSE 92; TEMP 98.3; O2SAT 96
--- NOTE | 2017-08-21 08:31 | RAD ---
HISTORY: SOB COMPARISON: Portable chest 08/17/2017. TECHNIQUE: Chest PA and lateral FINDINGS: LUNGS: No active pulmonary disease. PLEURA: No significant pleural effusion identified. No pneumothorax apparent. CARDIOVASCULAR: Normal. OSSEOUS STRUCTURES: No significant abnormalities. VISUALIZED UPPER ABDOMEN: Normal. OTHER FINDINGS: None. IMPRESSION: No interval acute cardiopulmonary disease appreciated.
== END 2017-08-21 06:00 | disposition home or self-care (01) ==
LOC: H.ER 22:04
DX: J44.9 Chronic obstructive pulmonary disease, unspecified (principal); E11.9 Type 2 diabetes mellitus without complications; Z79.84 Long term (current) use of oral hypoglycemic drugs; Z87.19 Personal history of other diseases of the digestive system; Z86.59 Personal history of other mental and behavioral disorders; K21.9 Gastro-esophageal reflux disease without esophagitis; E78.00 Pure hypercholesterolemia, unspecified

== ENCOUNTER 2017-08-22 19:39 | Emergency (ER) | payer OTHER ==
[2017-08-22 19:39] VITALS: BMI 25.7
[2017-08-22 20:07] VITALS: BP 150/96; PULSE 101; RESP 16; TEMP 97.9; O2SAT 97
--- NOTE | 2017-08-22 20:32 | ED PDOC ---
Upper Extremity Pain/Injury Time Seen by Provider: 08/22/17 20:24 Chief Complaint (Nursing): Upper Extremity Problem/Injury Chief Complaint (Provider): Left shoulder pain History Per: Patient History/Exam Limitations: no limitations Onset/Duration Of Symptoms: Hrs (this morning) Current Symptoms Are (Timing): Still Present Quality: "Pain" Additional Complaint(s): Ryley Torres is a 57 year old male, with no significant past medical history, who presents to the emergency department complaining of left shoulder pain s/p fall onset this morning. Patient denies any numbness or weakness to extremities. No further medical complaints. PMD: None provided. Past Medical History Reviewed: Historical Data, Nursing Documentation, Vital Signs Vital Signs: Last Vital Signs Temp 97.9 F 08/22/17 20:02 Pulse 101 H 08/22/17 20:02 Resp 16 08/22/17 20:02 BP 150/96 H 08/22/17 20:02 Pulse Ox 97 08/22/17 20:02 - Medical History PMH: Anemia, Anxiety, Asthma, Back Problems, Bipolar Disorder, COPD, Depression , Diabetes, Gastritis (secondary to ETOH), GERD, Hypercholesterolemia, Pancreatitis (secondary to ETOH), Schizophrenia, Seizures (secondary to ETOH withdrawal), Chronic Pain (low back pain ) Denies: CHF, Dementia, Emphysema, Parkinson's Disease, Peripheral Edema, Pneumonia, Pulmonary Embolism, Chronic Kidney Disease, Sexually Transmitted Disease, Sleep Apnea - Surgical History Surgical History: Back Surgery Denies: Pacemaker - Family History Family History: States: Diabetes - Immunization History Hx Tetanus Toxoid Vaccination: Yes (As per patient, TDaP uptodate ( about 3 years ago)) Hx Influenza Vaccination: No Hx Pneumococcal Vaccination: No - Home Medications Home Medications: Ambulatory Orders Medication Instructions Recorded Albuterol HFA [Ventolin HFA 90 2 puff INH RQ8 PRN inhaler 06/14/17 mcg/actuation (8 g)] Albuterol/Ipratropium [Duoneb 3 3 ml INH RQ6 PRN neb 06/14/17 mg/0.5 mg (3 ml) UD] Benzonatate [Tessalon Perles] 100 mg PO TID PRN sgl 06/14/17 Dextrose Oral [Glutose 15] 0 gm PO ONCE PRN tube 06/14/17 Famotidine [Pepcid] 20 mg PO BID #0 tab 06/14/17 Folic Acid 1 mg PO DAILY tab 06/14/17 Gabapentin [Neurontin] 100 mg PO TID 30 Days #90 cap 06/14/17 Glucagon [Glucagen Diagnostic Kit] 0 mg IM STAT PRN vial 06/14/17 Insulin Human Regular [HumuLIN R] 0 units SC ACHS ml 06/14/17 Multimineral/Multivitamin 1 tab PO DAILY 30 Days #30 tab 06/14/17 [Therapeutic-M Tab] QUEtiapine [SEROquel] 300 mg PO HS 30 Days #30 tab 06/14/17 Thiamine [Vitamin B1 Tab] 100 mg PO DAILY 30 Days #30 tab 06/14/17 amLODIPine [Norvasc] 5 mg PO DAILY #0 tab 06/14/17 metFORMIN [glucOPHAGE] 850 mg PO DAILY #90 tab 06/14/17 traZODone [Desyrel] 100 mg PO HS 30 Days #30 tab 06/14/17 Lipase/Protease/Amylase [Creon Dr 1 each PO AC #30 capsule. 08/17/17 3,000 Units Capsule] Naproxen Sodium [Anaprox Ds] 550 mg PO TID #30 tablet 08/22/17 - Allergies Allergies/Adverse Reactions: Allergies Allergy/AdvReac Type Severity Reaction Status Date / Time No Known Allergies Allergy Verified 08/05/17 16:46 Review of Systems Musculoskeletal: Positive for: Shoulder Pain (left) Physical Exam - Reviewed Nursing Documentation Reviewed: Yes Vital Signs Reviewed: Yes - Physical Exam Appears: Positive for: Well, Non-toxic, No Acute Distress Head Exam: Positive for: ATRAUMATIC, NORMAL INSPECTION, NORMOCEPHALIC Skin: Positive for: Normal Color, Warm, Dry Eye Exam: Positive for: Normal appearance Neck: Positive for: Painless ROM Extremity: Positive for: Normal ROM (left shoulder full ROM active and passively. ), Tenderness (to left clavicle. No tenting, abrasions, contusion or erythema noted. ). Negative for: Deformity, Swelling Neurologic/Psych: Positive for: Alert, Oriented - ECG O2 Sat by Pulse Oximetry: 97 (RA) Pulse Ox Interpretation: Normal Medical Decision Making Medical Decision Making: Initial Impression: Initial Plan: --Shoulder left [RAD] --Reevaluation 21:00 --Shoulder X-Ray show a non-displaced fracture to left clavicle at the distal 1/ 3. Pt will be be placed in shoulder sling and referred to orthopedics ~ Scribe Attestation: Documented by Rodolfo Parsons, acting as a scribe for Ted Anna PA-C. Provider Scribe Attestation: All medical record entries made by the Scribe were at my direction and personally dictated by me. I have reviewed the chart and agree that the record accurately reflects my personal performance of the history, physical exam, medical decision making, and the department course for this patient. I have also personally directed, reviewed, and agree with the discharge instructions and disposition. Disposition - Clinical Impression Clinical Impression: Clavicle fracture, shaft, Shoulder injury - Patient ED Disposition Is Patient to be Admitted: No Doctor Will See Patient In The: Office Counseled Patient/Family Regarding: Studies Performed, Diagnosis, Need For Followup, Rx Given - Disposition Referrals: Valdemar Godfrey III, MD [Staff Provider] - Disposition Time: 21:24 Condition: GOOD Prescriptions: Naproxen Sodium [Anaprox Ds] 550 mg PO TID #30 tablet Instructions: Floating Shoulder (DC) Forms: [employer] ([place])
--- NOTE | 2017-08-23 11:15 | RAD ---
PROCEDURE: Radiographs of the Left Shoulder HISTORY: r/o fx disl sep COMPARISON: No prior. FINDINGS: BONES: No acute fracture or destructive bony lesion identified. JOINTS: Normal. Glenohumeral and acromioclavicular joints preserved. No osteoarthritis. SOFT TISSUES: Normal. OTHER FINDINGS: None. IMPRESSION: No definite fracture dislocation identified including the left clavicle. If further clinical concern remains for clavicular pathology follow-up dedicated left clavicle radiography recommended. CT through the clavicle and also performed if warranted.
== END 2017-08-22 21:50 | disposition home or self-care (01) ==
LOC: H.ER 19:39
DX: S42.002A Fracture of unspecified part of left clavicle, initial encounter for closed fracture (principal); W19.XXXA Unspecified fall, initial encounter; Y92.89 Other specified places as the place of occurrence of the external cause; E11.9 Type 2 diabetes mellitus without complications; E78.00 Pure hypercholesterolemia, unspecified; K21.9 Gastro-esophageal reflux disease without esophagitis; Z79.84 Long term (current) use of oral hypoglycemic drugs; Z87.19 Personal history of other diseases of the digestive system; F31.9 Bipolar disorder, unspecified

== ENCOUNTER 2017-08-24 17:38 | Emergency (ER) | payer OTHER ==
[2017-08-24 17:38] VITALS: BMI 25.7
[2017-08-24 17:45] VITALS: BP 149/87; PULSE 110; RESP 16; TEMP 97.8; O2SAT 97
--- NOTE | 2017-08-24 18:31 | ED PDOC ---
HPI: Psych/Substance Abuse Time Seen by Provider: 08/24/17 18:23 Chief Complaint (Nursing): Substance Abuse Chief Complaint (Provider): Intoxication ED Caveat: Intoxicated History Per: EMS History/Exam Limitations: intoxication Onset/Duration Of Symptoms: Other (prior to arrival) Current Symptoms Are (Timing): Still Present Additional Complaint(s): Pt BIBA for intoxication, states he drank vodka and took a sleeping pill (blue pill). Past Medical History Reviewed: Historical Data, Nursing Documentation, Vital Signs, Unable To Obtain Vital Signs: Last Vital Signs Temp 97.8 F 08/24/17 17:43 Pulse 110 H 08/24/17 17:43 Resp 16 08/24/17 17:43 BP 149/87 08/24/17 17:43 Pulse Ox 97 08/24/17 17:43 - Medical History PMH: Anemia, Anxiety, Asthma, Back Problems, Bipolar Disorder, COPD, Depression , Diabetes, Gastritis (secondary to ETOH), GERD, Hypercholesterolemia, Pancreatitis (secondary to ETOH), Schizophrenia, Seizures (secondary to ETOH withdrawal), Chronic Pain (low back pain ) Denies: CHF, Dementia, Emphysema, Parkinson's Disease, Peripheral Edema, Pneumonia, Pulmonary Embolism, Chronic Kidney Disease, Sexually Transmitted Disease, Sleep Apnea - Surgical History Surgical History: Back Surgery Denies: Pacemaker - Family History Family History: States: Diabetes - Immunization History Hx Tetanus Toxoid Vaccination: Yes (As per patient, TDaP uptodate ( about 3 years ago)) Hx Influenza Vaccination: No Hx Pneumococcal Vaccination: No - Home Medications Home Medications: Ambulatory Orders Medication Instructions Recorded Albuterol HFA [Ventolin HFA 90 2 puff INH RQ8 PRN inhaler 06/14/17 mcg/actuation (8 g)] Albuterol/Ipratropium [Duoneb 3 3 ml INH RQ6 PRN neb 06/14/17 mg/0.5 mg (3 ml) UD] Benzonatate [Tessalon Perles] 100 mg PO TID PRN sgl 06/14/17 Dextrose Oral [Glutose 15] 0 gm PO ONCE PRN tube 06/14/17 Famotidine [Pepcid] 20 mg PO BID #0 tab 06/14/17 Folic Acid 1 mg PO DAILY tab 06/14/17 Gabapentin [Neurontin] 100 mg PO TID 30 Days #90 cap 06/14/17 Glucagon [Glucagen Diagnostic Kit] 0 mg IM STAT PRN vial 06/14/17 Insulin Human Regular [HumuLIN R] 0 units SC ACHS ml 06/14/17 Multimineral/Multivitamin 1 tab PO DAILY 30 Days #30 tab 06/14/17 [Therapeutic-M Tab] QUEtiapine [SEROquel] 300 mg PO HS 30 Days #30 tab 06/14/17 Thiamine [Vitamin B1 Tab] 100 mg PO DAILY 30 Days #30 tab 06/14/17 amLODIPine [Norvasc] 5 mg PO DAILY #0 tab 06/14/17 metFORMIN [glucOPHAGE] 850 mg PO DAILY #90 tab 06/14/17 traZODone [Desyrel] 100 mg PO HS 30 Days #30 tab 06/14/17 Lipase/Protease/Amylase [Creon Dr 1 each PO AC #30 capsule. 08/17/17 3,000 Units Capsule] Naproxen Sodium [Anaprox Ds] 550 mg PO TID #30 tablet 08/22/17 - Allergies Allergies/Adverse Reactions: Allergies Allergy/AdvReac Type Severity Reaction Status Date / Time No Known Allergies Allergy Verified 08/24/17 17:42 Review of Systems Review Of Systems: ROS cannot be obtained secondary to pt's inabilty to answer questions. Physical Exam - Reviewed Nursing Documentation Reviewed: Yes Vital Signs Reviewed: Yes - Physical Exam Appears: Positive for: Non-toxic, No Acute Distress Head Exam: Positive for: ATRAUMATIC, NORMAL INSPECTION, NORMOCEPHALIC Skin: Positive for: Normal Color, Warm, Dry Cardiovascular/Chest: Positive for: Regular Rate, Rhythm Respiratory: Positive for: Normal Breath Sounds Neurologic/Psych: Positive for: Alert (not answering questions), Oriented - ECG O2 Sat by Pulse Oximetry: 97 (RA) Pulse Ox Interpretation: Normal Medical Decision Making Medical Decision Making: Time: 18:24 Initial Impression: Intoxication and possible substance abuse Initial Plan: --Acetaminophen --Alcohol serum --Urine drug screen --Salicylate --Reevaluation Scribe Attestation: Documented by Sherif Blanco, acting as a scribe for Sandra Escalante MD. Provider Scribe Attestation: All medical record entries made by the Scribe were at my direction and personally dictated by me. I have reviewed the chart and agree that the record accurately reflects my personal performance of the history, physical exam, medical decision making, and the department course for this patient. I have also personally directed, reviewed, and agree with the discharge instructions and disposition. Disposition - Clinical Impression Clinical Impression: Alcohol intoxication, Substance abuse - Disposition Disposition: Transfer of Care Disposition Time: 19:00 Condition: STABLE Forms: [employer] (Emirati) Patient Signed Over To: Alejandro Barrera
[2017-08-24 19:12] LABS: ACETAMINOPHEN < 10.0 ug/ml (10.0-30.0); SALICYLATE < 1.0 mg/dl
[2017-08-24 19:25] LABS: BARBITURATES, UR NEGATIVE (NEGATIVE); BENZODIAZEPINES, UR POSITIVE (NEGATIVE); OPIATES, UR NEGATIVE (NEGATIVE); PHENCYCLIDINE, UR NEGATIVE (NEGATIVE)
--- NOTE | 2017-08-24 20:33 | ED PDOC ---
- ECG O2 Sat by Pulse Oximetry: 97 (RA) Medical Decision Making Medical Decision Making: Time: 19:00 Patient signed out to me by Dr. Escalante pending labs and sobriety. 0530 Upon re-evaluation patient is awake, alert, and oriented x3. Patient walks with a steady gait and is stable for discharge home. Scribe Attestation: Documented by Sherif Blanco, acting as a scribe for Alejandro Barrera MD. Provider Scribe Attestation: All medical record entries made by the Scribe were at my direction and personally dictated by me. I have reviewed the chart and agree that the record accurately reflects my personal performance of the history, physical exam, medical decision making, and the department course for this patient. I have also personally directed, reviewed, and agree with the discharge instructions and disposition. Disposition - Clinical Impression Clinical Impression: Alcohol intoxication, Substance abuse - POA Present On Arrival: None - Disposition Disposition: Routine/Home Disposition Time: 05:30 Condition: STABLE Instructions: Alcohol Abuse and Alcoholism (DC) Forms: [employer] (Ghanaian)
== END 2017-08-25 06:12 | disposition home or self-care (01) ==
LOC: H.ER 17:38
DX: F10.129 Alcohol abuse with intoxication, unspecified (principal); F19.10 Other psychoactive substance abuse, uncomplicated; E11.9 Type 2 diabetes mellitus without complications; Z79.84 Long term (current) use of oral hypoglycemic drugs

== ENCOUNTER 2017-08-28 16:35 | Emergency (ER) | payer MEDICAID, MEDICARE, OTHER ==
[2017-08-28 16:35] VITALS: BMI 25.7
[2017-08-28 16:40] VITALS: RESP 16; TEMP 97
[2017-08-28 17:55] LABS: BASO # 0.1 K/uL (0.0-0.2); BASO % 1.2 % (0.0-2.0); EOS # 0.2 K/uL (0.0-0.7); EOS % 1.4 % (0.0-4.0); HEMOGLOBIN 12.5 g/dL (12.0-18.0); LYMPH # 3.2 K/uL (1.0-4.3); LYMPH % 27.3 % (20.0-40.0); MEAN CELL VOLUME 96.7 fl (80.0-94.0); MEAN CORPUSCULAR HEMOGLOBIN 33.5 pg (27.0-31.0); MEAN CORPUSCULAR HGB CONC 34.7 g/dL (33.0-37.0); MEAN PLATELET VOLUME 6.9 fl (7.2-11.7); MONO # 0.7 K/uL (0.0-0.8); MONO % 5.8 % (0.0-10.0); NEUT # 7.6 K/uL (1.8-7.0); NEUT % 64.3 % (50.0-75.0); NRBC % 0.2 % (0.0-0.0); RBC 3.74 Mil/uL (4.40-5.90); RED CELL DISTRIBUTION WIDTH 17.4 % (11.5-14.5)
[2017-08-28 18:03] LABS: VENOUS BLOOD GAS PCO2 44 mmHg (40-60); VENOUS BLOOD GAS PO2 53 mm/Hg (30-55)
[2017-08-28 18:06] LABS: WHITE BLOOD COUNT 11.8 K/uL (4.8-10.8)
[2017-08-28] MEDS ORDERED: Albuterol-Ipratrop 3 mg / 0.5 (3 ml) UD ONE (18:14)
[2017-08-28 18:15] LABS: ALB/GLOB RATIO 1.2 (1.0-2.1); ALT/SGPT 41 U/L (21-72); AST/SGOT 44 U/L (17-59); BLOOD UREA NITROGEN 7 mg/dl (9-20); CALCIUM 8.7 mg/dL (8.4-10.2); GFR AFRICAN-AMERICAN > 60; GFR NON-AFRICAN AMERICAN > 60
[2017-08-28] MEDS: Albuterol-Ipratrop 3 mg / 0.5 (3 ml) UD INH STA (18:17)
--- NOTE | 2017-08-28 18:20 | ED PDOC ---
HPI: SOB/CHF/COPD Time Seen by Provider: 08/28/17 16:51 Chief Complaint (Nursing): Alcohol Ingestion Chief Complaint (Provider): Asthma exacerbation and possible ETOH History Per: Patient History/Exam Limitations: no limitations Onset/Duration Of Symptoms: Days (x1 week) Current Symptoms Are (Timing): Still Present Associated Symptoms: Fever, Productive Cough (green phlegm w/ some blood-tinged sputum), Other (rhinorrhea, chest tightess, ). denies: Chills Additional Complaint(s): Ryley Torres is a 57 year old male, with a past medical history of asthma, COPD and diabetes, who was brought to the emergency department via EMS for asthma exacerbation onset for x1 week and alcohol intoxication. Patient is well known to ER for frequent visits for ETOH intoxication. Patient reports x1 week of shortness of breath, productive cough and chest tightness consistent with asthma. Patient also reports fever, rhinorrhea and greenish phlegm with some blood-tinged sputum. Patient states he is using inhaler with minimal relief. He was seen at [facility] yesterday and discharged. He denies any other medical complaints. History may be unreliable due to intoxication. PMD: None provided. Past Medical History Reviewed: Historical Data, Nursing Documentation, Vital Signs Vital Signs: Last Vital Signs Temp 97 F L 08/28/17 16:37 Pulse 107 H 08/28/17 21:32 Resp 16 08/28/17 21:32 BP 143/80 08/28/17 21:32 Pulse Ox 97 08/28/17 21:32 - Medical History PMH: Anemia, Anxiety, Asthma, Back Problems, Bipolar Disorder, COPD, Depression , Diabetes, Gastritis (secondary to ETOH), GERD, Hypercholesterolemia, Pancreatitis (secondary to ETOH), Schizophrenia, Seizures (secondary to ETOH withdrawal), Chronic Pain (low back pain ) Denies: CHF, Dementia, Emphysema, Parkinson's Disease, Peripheral Edema, Pneumonia, Pulmonary Embolism, Chronic Kidney Disease, Sexually Transmitted Disease, Sleep Apnea - Surgical History Surgical History: Back Surgery Denies: Pacemaker - Family History Family History: States: Diabetes - Immunization History Hx Tetanus Toxoid Vaccination: Yes (As per patient, TDaP uptodate ( about 3 years ago)) Hx Influenza Vaccination: No Hx Pneumococcal Vaccination: No - Home Medications Home Medications: Ambulatory Orders Medication Instructions Recorded Albuterol HFA [Ventolin HFA 90 2 puff INH RQ8 PRN inhaler 06/14/17 mcg/actuation (8 g)] Albuterol/Ipratropium [Duoneb 3 3 ml INH RQ6 PRN neb 06/14/17 mg/0.5 mg (3 ml) UD] Benzonatate [Tessalon Perles] 100 mg PO TID PRN sgl 06/14/17 Dextrose Oral [Glutose 15] 0 gm PO ONCE PRN tube 06/14/17 Famotidine [Pepcid] 20 mg PO BID #0 tab 06/14/17 Folic Acid 1 mg PO DAILY tab 06/14/17 Gabapentin [Neurontin] 100 mg PO TID 30 Days #90 cap 06/14/17 Glucagon [Glucagen Diagnostic Kit] 0 mg IM STAT PRN vial 06/14/17 Insulin Human Regular [HumuLIN R] 0 units SC ACHS ml 06/14/17 Multimineral/Multivitamin 1 tab PO DAILY 30 Days #30 tab 06/14/17 [Therapeutic-M Tab] QUEtiapine [SEROquel] 300 mg PO HS 30 Days #30 tab 06/14/17 Thiamine [Vitamin B1 Tab] 100 mg PO DAILY 30 Days #30 tab 06/14/17 metFORMIN [glucOPHAGE] 850 mg PO DAILY #90 tab 06/14/17 traZODone [Desyrel] 100 mg PO HS 30 Days #30 tab 06/14/17 Lipase/Protease/Amylase [Creon Dr 1 each PO AC #30 capsule. 08/17/17 3,000 Units Capsule] Naproxen Sodium [Anaprox Ds] 550 mg PO TID #30 tablet 08/22/17 Albuterol Sulfate [Proventil Hfa] 0.09 mg IH Q4 #1 inhaler 08/28/17 Azithromycin 250 mg PO DAILY 3 Days #3 tablet 08/31/17 DiphenhydrAMINE [Benadryl] 50 mg PO PRN PRN #20 cap 08/31/17 Multimineral/Multivitamin 1 tab PO DAILY tab 08/31/17 [Therapeutic-M Tab] hydroCHLOROthiazide [Microzide] 12.5 mg PO DAILY 30 Days #30 cap 08/31/17 - Allergies Allergies/Adverse Reactions: Allergies Allergy/AdvReac Type Severity Reaction Status Date / Time No Known Allergies Allergy Verified 08/27/17 19:57 Review of Systems ROS Statement: Except As Marked, All Systems Reviewed And Found Negative Constitutional: Positive for: Fever, Other (ETOH intoxication). Negative for: Chills ENT: Positive for: Nose Discharge Respiratory: Positive for: Cough (productive), Shortness of Breath, Sputum ( greenish phlegm with some blood tinged sputum.), Other (chest tightness) Physical Exam - Reviewed Nursing Documentation Reviewed: Yes Vital Signs Reviewed: Yes - Physical Exam Appears: Positive for: No Acute Distress. Negative for: Well (appears intoxicated and somewhat sleepy. Disheveled and unkempt) Head Exam: Positive for: ATRAUMATIC, NORMOCEPHALIC Skin: Positive for: Warm, Dry, Rash (erythematous papules with confluenct bilateral flanks/axilla with satellite lesions) ENT: Negative for: Pharyngeal Erythema, Tonsillar Exudate Neck: Positive for: Painless ROM, Supple Cardiovascular/Chest: Positive for: Regular Rate, Rhythm. Negative for: Murmur Respiratory: Positive for: Rhonchi (diffused), Wheezing (diffused), Respiratory Distress (mild). Negative for: Accessory Muscle Use Gastrointestinal/Abdominal: Positive for: Soft. Negative for: Tenderness Back: Positive for: Normal Inspection. Negative for: Muscle Spasm Extremity: Positive for: Pedal Edema (mild b/l) Lymphatic: Negative for: Adenopathy Neurologic/Psych: Positive for: Alert, Oriented (x3), Gait (unsteady), Other ( slurred speech. Sleepy). Negative for: Motor/Sensory Deficits - Laboratory Results Result Diagrams: 08/28/17 17:40 08/28/17 17:40 - ECG O2 Sat by Pulse Oximetry: 99 (RA) Pulse Ox Interpretation: Normal Medical Decision Making Medical Decision Making: Initial Impression: Alcohol intoxication, asthma exacerbation. Differential diagnosis includes but not limited to PNA, bronchitis, and flu Initial Plan: --Alcohol serum --CMP --Drug screen, urine --Urine dipstick --Chest portable [RAD] --Chest two views (PA/LAT) [RAD] --Duoneb 9 ml INH --SOLU-medrol 125 mg IVP --Blood culture --Peak flow pre/post Tx --Influenza A B --Reevaluation Labs demonstrate elevated BAL Hypokalemia: Oral repletion ordered. Pt in no distress. 9p Pt stable for dc. Scribe Attestation: Documented by Rodolfo Parsons, acting as a scribe for Jeannine Souza MD Provider Scribe Attestation: All medical record entries made by the Scribe were at my direction and personally dictated by me. I have reviewed the chart and agree that the record accurately reflects my personal performance of the history, physical exam, medical decision making, and the department course for this patient. I have also personally directed, reviewed, and agree with the discharge instructions and disposition. Disposition - Clinical Impression Clinical Impression: Alcohol abuse with alcohol-induced disorder, Hypokalemia, Asthma exacerbation - Disposition Referrals: [facility] [Outside] Disposition Time: 21:30 Condition: IMPROVED Instructions: Asthma, Adult (DC), Hypokalemia (DC), Alcohol Abuse and Alcoholism (DC) Forms: [employer] (Serbian) Print Language: AUSTRIAN
--- NOTE | 2017-08-28 18:33 | RAD ---
HISTORY: Shortness of breath COMPARISON: 08/21/2017 FINDINGS: LUNGS: No active pulmonary disease. PLEURA: No significant pleural effusion identified, no pneumothorax apparent. CARDIOVASCULAR: No radiographic findings to suggest acute or significant cardiovascular disease. OSSEOUS STRUCTURES: No significant abnormalities. VISUALIZED UPPER ABDOMEN: Normal. OTHER FINDINGS: None. IMPRESSION: No active disease. No significant interval change compared to the prior examination(s).
[2017-08-28 19:15] LABS: BARBITURATES, UR NEGATIVE (NEGATIVE); BENZODIAZEPINES, UR POSITIVE (NEGATIVE); OPIATES, UR NEGATIVE (NEGATIVE); PHENCYCLIDINE, UR NEGATIVE (NEGATIVE)
[2017-08-28] MEDS ORDERED: Thiamine 100 mg/ml Inj IV STA (19:37)
[2017-08-28] MEDS ORDERED: Thiamine 100 MG in Sodium Chloride 0.9% 100 ML IV STA (19:52)
[2017-08-28] MEDS ORDERED: K-Lyte 25meq EF Tab PO ONE (20:31)
[2017-08-28] MEDS: K-Lyte 25meq EF Tab PO ONE (20:32)
[2017-08-28] MEDS ORDERED: DiphenhydrAMINE 50 mg/ml Inj ONE (20:32)
[2017-08-28] MEDS: DiphenhydrAMINE 50 mg/ml Inj IVP STA (20:33)
[2017-08-28 21:33] VITALS: BP 143/80; PULSE 107
[2017-08-28] MEDS: Sodium Chloride 0.9% 1,000 ML IV STA (21:33)
[2017-09-01 23:20] VITALS: O2SAT 99
== END 2017-08-28 21:32 | disposition home or self-care (01) ==
LOC: H.ER 16:35
DX: F10.19 Alcohol abuse with unspecified alcohol-induced disorder (principal); Y90.8 Blood alcohol level of 240 mg/100 ml or more; J45.901 Unspecified asthma with (acute) exacerbation; E87.6 Hypokalemia; E11.9 Type 2 diabetes mellitus without complications; Z86.59 Personal history of other mental and behavioral disorders; J44.0 Chronic obstructive pulmonary disease with (acute) lower respiratory infection; Z79.84 Long term (current) use of oral hypoglycemic drugs; Z87.19 Personal history of other diseases of the digestive system; F10.129 Alcohol abuse with intoxication, unspecified
CPT/HCPCS: 71045; 80053; 80320; 80324; 80345; 80346; 80349; 80353; 80358; 80361; 82803; 82948; 83992; 85025; 87040; 87804; 94640; 96374; 96375; 99284; J1200; J2930

== ENCOUNTER 2017-08-29 19:19 | Observation (INO) | payer OTHER ==
[2017-08-29 19:20] VITALS: BMI 25.7
[2017-08-29] MEDS ORDERED: Albuterol-Ipratrop 3 mg / 0.5 (3 ml) UD INH STA ×4 (20:16→22:34)
--- NOTE | 2017-08-29 20:44 | ED PDOC ---
HPI: Asthma Time Seen by Provider: 08/29/17 19:59 Chief Complaint (Nursing): Cough, Cold, Congestion History Per: Patient History/Exam Limitations: no limitations Onset/Duration Of Symptoms: Days Current Symptoms Are (Timing): Still Present Associated Symptoms: Dyspnea, Cough. denies: Fever Additional Complaint(s): Patient well known to ER w/ hx of COPD, alcohol abuse, DM, psychiatric disorder p/w SOB and wheezing x 3 days, states that he has had cough with productive phlegm x 3 days and wheezing, states he uses his pump "multiple" times a day without relief. Denies fevers, endorses chills. No sick contacts. Also c/o of rash x 1 week in armpits and legs. Past Medical History Reviewed: Historical Data, Nursing Documentation, Vital Signs Vital Signs: Last Vital Signs Temp 97.6 F 08/29/17 20:24 Pulse 70 08/29/17 19:37 Resp 18 08/29/17 19:37 BP 131/71 08/29/17 19:37 Pulse Ox 99 08/29/17 19:37 - Medical History PMH: Anemia, Anxiety, Asthma, Back Problems, Bipolar Disorder, COPD, Depression , Diabetes, Gastritis (secondary to ETOH), GERD, Hypercholesterolemia, Pancreatitis (secondary to ETOH), Schizophrenia, Seizures (secondary to ETOH withdrawal), Chronic Pain (low back pain ) Denies: CHF, Dementia, Emphysema, Parkinson's Disease, Peripheral Edema, Pneumonia, Pulmonary Embolism, Chronic Kidney Disease, Sexually Transmitted Disease, Sleep Apnea - Surgical History Surgical History: Back Surgery Denies: Pacemaker - Family History Family History: States: Diabetes - Immunization History Hx Tetanus Toxoid Vaccination: Yes (As per patient, TDaP uptodate ( about 3 years ago)) Hx Influenza Vaccination: No Hx Pneumococcal Vaccination: No - Home Medications Home Medications: Ambulatory Orders Medication Instructions Recorded Albuterol HFA [Ventolin HFA 90 2 puff INH RQ8 PRN inhaler 06/14/17 mcg/actuation (8 g)] Albuterol/Ipratropium [Duoneb 3 3 ml INH RQ6 PRN neb 06/14/17 mg/0.5 mg (3 ml) UD] Benzonatate [Tessalon Perles] 100 mg PO TID PRN sgl 06/14/17 Dextrose Oral [Glutose 15] 0 gm PO ONCE PRN tube 06/14/17 Famotidine [Pepcid] 20 mg PO BID #0 tab 06/14/17 Folic Acid 1 mg PO DAILY tab 06/14/17 Gabapentin [Neurontin] 100 mg PO TID 30 Days #90 cap 06/14/17 Glucagon [Glucagen Diagnostic Kit] 0 mg IM STAT PRN vial 06/14/17 Insulin Human Regular [HumuLIN R] 0 units SC ACHS ml 06/14/17 Multimineral/Multivitamin 1 tab PO DAILY 30 Days #30 tab 06/14/17 [Therapeutic-M Tab] QUEtiapine [SEROquel] 300 mg PO HS 30 Days #30 tab 06/14/17 Thiamine [Vitamin B1 Tab] 100 mg PO DAILY 30 Days #30 tab 06/14/17 amLODIPine [Norvasc] 5 mg PO DAILY #0 tab 06/14/17 metFORMIN [glucOPHAGE] 850 mg PO DAILY #90 tab 06/14/17 traZODone [Desyrel] 100 mg PO HS 30 Days #30 tab 06/14/17 Lipase/Protease/Amylase [Creon Dr 1 each PO AC #30 capsule.dr 08/17/17 3,000 Units Capsule] Naproxen Sodium [Anaprox Ds] 550 mg PO TID #30 tablet 08/22/17 Albuterol Sulfate [Proventil Hfa] 0.09 mg IH Q4 #1 inhaler 08/28/17 - Allergies Allergies/Adverse Reactions: Allergies Allergy/AdvReac Type Severity Reaction Status Date / Time No Known Allergies Allergy Verified 08/27/17 19:57 Review of Systems ROS Statement: Except As Marked, All Systems Reviewed And Found Negative Constitutional: Positive for: Chills. Negative for: Fever Respiratory: Positive for: Cough, Wheezing Physical Exam - Reviewed Nursing Documentation Reviewed: Yes Vital Signs Reviewed: Yes - Physical Exam Appears: Positive for: Well, Non-toxic, No Acute Distress (Speaking full sentences) Head Exam: Positive for: ATRAUMATIC, NORMAL INSPECTION, NORMOCEPHALIC Skin: Positive for: Rash (papular rash in L axilla and legs, grouped but non- vesicular, no surroudning erythema ) Eye Exam: Positive for: EOMI, Normal appearance, PERRL ENT: Positive for: Normal ENT Inspection Neck: Positive for: Normal, Painless ROM Cardiovascular/Chest: Positive for: Regular Rate, Rhythm Respiratory: Positive for: Wheezing (Bilaterally, prolonged end-expiratory phase ) Gastrointestinal/Abdominal: Positive for: Normal Exam, Bowel Sounds, Soft Back: Positive for: Normal Inspection Extremity: Positive for: Normal ROM Neurologic/Psych: Positive for: Alert, Oriented - Laboratory Results Result Diagrams: 08/29/17 22:42 08/29/17 22:42 - ECG O2 Sat by Pulse Oximetry: 99 Medical Decision Making Medical Decision MakinPM A/P: Hx of COPD, DM, ETOH, bipolar d/o p/w exacerbation -patient with normal vital signs, speaking full sentences, no respiratory distress -patient was seen in ER for similar yesterday, had negative CXR, not necessary for repeat CXR today -will give nebs, steroid, and reassess afterwards 10PM Patient states that he does not feel any better, still having SOB. Given COPD and DM, will get labs, CXR, will require OBS admission for frequent nebulization treatment. Patient is also high risk because of poor compliance, states he goes to "the clinic on [address]" but states he does not followup because he states that every time he goes "they tell [him] that he has to wait 15 days. " Disposition - Clinical Impression Clinical Impression: COPD exacerbation, Hypokalemia - Disposition Disposition Time: 22:00 Condition: GUARDED
[2017-08-29 22:49] LABS: BASO # 0.1 K/uL (0.0-0.2); BASO % 0.8 % (0.0-2.0); EOS % 0.1 % (0.0-4.0); LYMPH # 1.9 K/uL (1.0-4.3); LYMPH % 22.1 % (20.0-40.0); MEAN CELL VOLUME 96.5 fl (80.0-94.0); MEAN CORPUSCULAR HEMOGLOBIN 33.9 pg (27.0-31.0); MEAN CORPUSCULAR HGB CONC 35.1 g/dL (33.0-37.0); MEAN PLATELET VOLUME 7.1 fl (7.2-11.7); MONO # 0.5 K/uL (0.0-0.8); MONO % 5.7 % (0.0-10.0); NEUT # 6.2 K/uL (1.8-7.0); NEUT % 71.3 % (50.0-75.0); NRBC % 0.1 % (0.0-0.0); RBC 3.55 Mil/uL (4.40-5.90); RED CELL DISTRIBUTION WIDTH 17.7 % (11.5-14.5); WHITE BLOOD COUNT 8.7 K/uL (4.8-10.8)
[2017-08-29 22:52] LABS: VENOUS BLOOD GAS BASE EXCESS 0.1 mmol/L (0.0-2.0); VENOUS BLOOD GAS PCO2 39 mmHg (40-60); VENOUS BLOOD GAS PO2 56 mm/Hg (30-55); VENOUS BLOOD PH 7.41 (7.32-7.43)
[2017-08-29 23:06] LABS: BLOOD UREA NITROGEN 6 mg/dl (9-20); CALCIUM 9.4 mg/dL (8.4-10.2); GFR AFRICAN-AMERICAN > 60; GFR NON-AFRICAN AMERICAN > 60
[2017-08-29] MEDS ORDERED: Albuterol-Ipratrop 3 mg / 0.5 (3 ml) UD ONE (23:18)
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
[2017-08-30] MEDS ORDERED: Potassium Chloride 20 mEq 100 ML ONE (00:10)
[2017-08-30] MEDS: Potassium Chloride 20 mEq 100 ML IVPB SCH ×2 (00:16→03:47)
[2017-08-30] MEDS ORDERED: Magnesium Sulfate 2 gm/50 ml 2 GM/50 ML BAG IVPB ONE (00:17)
[2017-08-30] MEDS ORDERED: Potassium Chloride 20 mEq ER Tab PO ONE ×2 (01:17→01:39)
[2017-08-30] MEDS: Albuterol-Ipratrop 3 mg / 0.5 (3 ml) UD INH SCH ×4 (07:58→19:57)
[2017-08-30 08:02] LABS: BLOOD UREA NITROGEN 9 mg/dl (9-20); CALCIUM 9.1 mg/dL (8.4-10.2); GFR AFRICAN-AMERICAN > 60; GFR NON-AFRICAN AMERICAN > 60
[2017-08-30] MEDS: Multivitamin With Minerals Tab PO SCH (08:35)
[2017-08-30] MEDS: Azithromycin 500 MG in Sodium Chloride 0.9% 250 ML IVPB SCH ×2 (08:36→08:39)
--- NOTE | 2017-08-30 11:14 | RAD ---
HISTORY: asthma, wheezing COMPARISON: 08/28/2017 TECHNIQUE: Chest PA and lateral FINDINGS: LUNGS: No active pulmonary disease. PLEURA: No significant pleural effusion identified. No pneumothorax apparent. CARDIOVASCULAR: Normal. OSSEOUS STRUCTURES: No significant abnormalities. VISUALIZED UPPER ABDOMEN: Normal. OTHER FINDINGS: None. IMPRESSION: No active disease.
[2017-08-30] MEDS ORDERED: Famotidine 40 MG/5 ML PO SCH (17:00)
--- NOTE | 2017-08-30 19:40 | CARD ---
APPROVED REPORT EKG Measurement Heart [id number] <Conclusion> Sinus tachycardia Nonspecific ST and T wave abnormality, ? artifacts Abnormal ECG
[2017-08-31] MEDS: Albuterol-Ipratrop 3 mg / 0.5 (3 ml) UD INH SCH ×3 (01:00→13:18)
[2017-08-31] MEDS: Multivitamin With Minerals Tab PO SCH (09:30)
[2017-08-31] MEDS: Azithromycin 500 MG in Sodium Chloride 0.9% 250 ML IVPB SCH (09:33)
[2017-08-31 11:15] VITALS: BP 163/90; PULSE 85; TEMP 98; O2SAT 97
[2017-08-31 12:01] VITALS: RESP 18
--- NOTE | 2017-08-31 13:17 | CP.PCM.DIS ---
Provider - Provider Date of Admission: 08/29/17 22:08 Attending physician: Cande Palacios MD Time Spent in preparation of Discharge (in minutes): 55 Diagnosis - Discharge Diagnosis (1) COPD exacerbation Status: Acute (2) Rash and nonspecific skin eruption Status: Acute Hospital Course - Lab Results Lab Results: Most Recent Lab Values WBC 8.7 K/uL (4.8-10.8) 08/29/17 22:42 RBC 3.55 Mil/uL (4.40-5.90) L 08/29/17 22:42 Hgb 12.0 g/dL (12.0-18.0) 08/29/17 22:42 Hct 34.3 % (35.0-51.0) L 08/29/17 22:42 MCV 96.5 fl (80.0-94.0) H 08/29/17 22:42 MCH 33.9 pg (27.0-31.0) H 08/29/17 22:42 MCHC 35.1 g/dL (33.0-37.0) 08/29/17 22:42 RDW 17.7 % (11.5-14.5) H 08/29/17 22:42 Plt Count 305 K/uL (130-400) 08/29/17 22:42 MPV 7.1 fl (7.2-11.7) L 08/29/17 22:42 Neut % (Auto) 71.3 % (50.0-75.0) 08/29/17 22:42 Lymph % (Auto) 22.1 % (20.0-40.0) 08/29/17 22:42 Mccone % (Auto) 5.7 % (0.0-10.0) 08/29/17 22:42 Eos % (Auto) 0.1 % (0.0-4.0) 08/29/17 22:42 Baso % (Auto) 0.8 % (0.0-2.0) 08/29/17 22:42 Neut # (Auto) 6.2 K/uL (1.8-7.0) 08/29/17 22:42 Lymph # (Auto) 1.9 K/uL (1.0-4.3) 08/29/17 22:42 Mccone # (Auto) 0.5 K/uL (0.0-0.8) 08/29/17 22:42 Eos # (Auto) 0.0 K/uL (0.0-0.7) 08/29/17 22:42 Baso # (Auto) 0.1 K/uL (0.0-0.2) 08/29/17 22:42 pO2 56 mm/Hg (30-55) H 08/29/17 22:49 VBG pH 7.41 (7.32-7.43) 08/29/17 22:49 VBG pCO2 39 mmHg (40-60) L 08/29/17 22:49 VBG HCO3 24.8 mmol/L 08/29/17 22:49 VBG Total CO2 25.9 mmol/L (22-28) 08/29/17 22:49 VBG O2 Sat (Calc) 94.2 % (40-65) H 08/29/17 22:49 VBG Base Excess 0.1 mmol/L (0.0-2.0) 08/29/17 22:49 VBG Potassium 2.4 mmol/L (3.6-5.2) L* 08/29/17 22:49 Sodium 143.0 mmol/L (132-148) 08/29/17 22:49 Chloride 106.0 mmol/L (98-107) 08/29/17 22:49 Glucose 215 mg/dL (75-110) H 08/29/17 22:49 Lactate 2.7 mmol/L (0.7-2.1) H 08/29/17 22:49 FiO2 21.0 % 08/29/17 22:49 Crit Value Called To Dr nicole 08/29/17 22:49 Crit Value Called By [id number] 08/29/17 22:49 Crit Value Read Back Y 08/29/17 22:49 Blood Gas Notified Time 225108/29/17 22:49 Sodium 141 mmol/l (132-148) 08/30/17 07:25 Potassium 3.4 MMOL/L (3.6-5.0) L 08/30/17 07:25 Chloride 101 mmol/L (98-107) 08/30/17 07:25 Carbon Dioxide 24 mmol/L (22-30) 08/30/17 07:25 Anion Gap 19 (10-20) 08/30/17 07:25 BUN 9 mg/dl (9-20) 08/30/17 07:25 Creatinine 0.7 mg/dl (0.8-1.5) L 08/30/17 07:25 Est GFR ( Amer) > 60 08/30/17 07:25 Est GFR (Non-Af Amer) > 60 08/30/17 07:25 Random Glucose 286 mg/dL (75-110) H 08/30/17 07:25 Lactic Acid 2.3 MMOL/L (0.7-2.1) H 08/30/17 07:25 Calcium 9.1 mg/dL (8.4-10.2) 08/30/17 07:25 Magnesium 1.2 MG/DL (1.6-2.3) L 08/29/17 23:20 Troponin I 0.0280 ng/mL (0.00-0.120) 08/29/17 22:42 Venous Blood Potassium 2.4 mmol/L (3.6-5.2) L* 08/29/17 22:49 Alcohol, Quantitative 117 mg/dl (0-10) H 08/29/17 22:42 - Hospital Course Hospital Course: Hospital Course: Pt is 57 y/o homeless male with hx of alcohol abuse, COPD, HTN, and NIDDM admitted to [facility] for management of COPD exacerbation and additionally found to have a diffuse rash on his back. Pt was treated with IV and PO steroids, 2 days of antibiotics, and scheduled duonebs until clinical improvement. Rash on back was treated with Benadryl and showed significant improvement by day 2. During stay, patient was also managed for ETOH withdrawal symptoms with librium and ativan prn. Pt was stable on discharge. Discharge medications. Pt's Antihypertensive medications were adjusted. Norvasc discontinued and pt started on HTZ. Pt also d/c on Azithromax to be taken daily for 3 days. Also D/C on Bendadryl prn No other changes to home medication regimen or dosages. Ventolin HFA 90 Famotidine 20mg daily Folic Acid Gabapentin Lipase/Protease/Amylase Metformin Quetiapine Thiamine Trazadone Discharge Exam - Head Exam Head Exam: ATRAUMATIC, NORMAL INSPECTION, NORMOCEPHALIC - Eye Exam Eye Exam: Normal appearance - ENT Exam ENT Exam: Mucous Membranes Moist - Respiratory Exam Respiratory Exam: Clear to PA & Lateral, Wheezes (mild end ex wheezing, improved greatly since admission), NORMAL BREATHING PATTERN. absent: Accessory Muscle Use, Rales - Cardiovascular Exam Cardiovascular Exam: REGULAR RHYTHM, +S1, +S2. absent: Systolic Murmur - GI/Abdominal Exam GI & Abdominal Exam: Soft. absent: Distended, Tenderness - Neurological Exam Neurological exam: Alert, Oriented x3 Discharge Plan - Discharge Medications Prescriptions: Azithromycin 250 mg PO DAILY 3 Days #3 tablet DiphenhydrAMINE [Benadryl] 50 mg PO PRN PRN #20 cap PRN Reason: Rash hydroCHLOROthiazide [Microzide] 12.5 mg PO DAILY 30 Days #30 cap - Follow Up Plan Condition: GUARDED Disposition: HOME/ ROUTINE Instructions: Quitting Smoking for Teens and Young Adults, Exacerbation of COPD (DC) Additional Instructions: follow up at [facility] 1 week. Referrals: [facility] [place] [Outside] - 09/18/17 11:00 am
== END 2017-08-31 13:49 | disposition home or self-care (01) ==
LOC: H.ER 19:19 → H.ERHOLD 22:08 → H.MEDSURG1 08-30 02:00
PROVIDERS: ADMIT Family Medicine Geriatric Medicine; ATTEND Family Medicine Geriatric Medicine
DX: J44.1 Chronic obstructive pulmonary disease with (acute) exacerbation (principal); E87.6 Hypokalemia; Z59.0 Homelessness; R21 Rash and other nonspecific skin eruption; I10 Essential (primary) hypertension; E11.9 Type 2 diabetes mellitus without complications; F17.210 Nicotine dependence, cigarettes, uncomplicated; F31.9 Bipolar disorder, unspecified; E78.00 Pure hypercholesterolemia, unspecified; K29.20 Alcoholic gastritis without bleeding; G89.29 Other chronic pain; K21.9 Gastro-esophageal reflux disease without esophagitis; F41.9 Anxiety disorder, unspecified; F10.239 Alcohol dependence with withdrawal, unspecified; Y90.5 Blood alcohol level of 100-119 mg/100 ml
CPT/HCPCS: 36415; 71046; 80048; 80320; 82803; 83036; 83605; 83735; 84484; 85025; 93005; 94640; 96374; 99285; G0378; J0456; J2060; J2930; J3480

== ENCOUNTER 2017-09-04 19:16 | Emergency (ER) | payer OTHER ==
[2017-09-04 19:17] VITALS: BMI 25.7
[2017-09-04 19:23] VITALS: O2SAT 98
--- NOTE | 2017-09-04 20:46 | ED PDOC ---
HPI: Skin/Bite Injury Time Seen by Provider: 09/04/17 19:51 Chief Complaint (Nursing): Abnormal Skin Integrity Chief Complaint (Provider): Abnormal Skin Integrity History Per: Patient, EMS History/Exam Limitations: no limitations Current Symptoms Are (Timing): Still Present Quality Of Symptoms: Itching Additional History Per: Prior Records Additional Complaint(s): Ryley is a 57 year old male, with a history of COPD, chronic back pain and depression, who presents to the ED complaining of rash that started 5 days ago. Patient reports rash is itchy and appears on chest, back and abdomen. Reports itchiness is getting worse. Patient reports using Benadryl for itchiness. Patient was experiencing mild wheezing prior to arrival where EMS treated patient on route. Patient was recently admitted 1 week ago to this hospital for COPD and discharged with Zithromax. Denies any previous allergies or using new bath products. Patient claims no bed bugs at home. Denies any other complaints. PMD: Provider TBD Past Medical History Reviewed: Historical Data, Nursing Documentation, Vital Signs Vital Signs: Last Vital Signs Temp 98.4 F 09/05/17 03:05 Pulse 89 09/05/17 03:05 Resp 18 09/05/17 03:05 BP 149/90 09/05/17 03:05 Pulse Ox 98 09/05/17 03:05 - Medical History PMH: Anemia, Anxiety, Asthma, Back Problems, Bipolar Disorder, COPD, Depression , Diabetes, Gastritis (secondary to ETOH), GERD, Hypercholesterolemia, Pancreatitis (secondary to ETOH), Schizophrenia, Seizures (secondary to ETOH withdrawal), Chronic Pain (low back pain ) Denies: CHF, Dementia, Emphysema, Parkinson's Disease, Peripheral Edema, Pneumonia, Pulmonary Embolism, Chronic Kidney Disease, Sexually Transmitted Disease, Sleep Apnea - Surgical History Surgical History: Back Surgery Denies: Pacemaker - Family History Family History: States: Diabetes - Immunization History Hx Tetanus Toxoid Vaccination: Yes (As per patient, TDaP uptodate ( about 3 years ago)) Hx Influenza Vaccination: No Hx Pneumococcal Vaccination: No - Home Medications Home Medications: Ambulatory Orders Medication Instructions Recorded Albuterol HFA [Ventolin HFA 90 2 puff INH RQ8 PRN inhaler 06/14/17 mcg/actuation (8 g)] Albuterol/Ipratropium [Duoneb 3 3 ml INH RQ6 PRN neb 06/14/17 mg/0.5 mg (3 ml) UD] Benzonatate [Tessalon Perles] 100 mg PO TID PRN sgl 06/14/17 Dextrose Oral [Glutose 15] 0 gm PO ONCE PRN tube 06/14/17 Famotidine [Pepcid] 20 mg PO BID #0 tab 06/14/17 Folic Acid 1 mg PO DAILY tab 06/14/17 Gabapentin [Neurontin] 100 mg PO TID 30 Days #90 cap 06/14/17 Glucagon [Glucagen Diagnostic Kit] 0 mg IM STAT PRN vial 06/14/17 Insulin Human Regular [HumuLIN R] 0 units SC ACHS ml 06/14/17 Multimineral/Multivitamin 1 tab PO DAILY 30 Days #30 tab 06/14/17 [Therapeutic-M Tab] QUEtiapine [SEROquel] 300 mg PO HS 30 Days #30 tab 06/14/17 Thiamine [Vitamin B1 Tab] 100 mg PO DAILY 30 Days #30 tab 06/14/17 metFORMIN [glucOPHAGE] 850 mg PO DAILY #90 tab 06/14/17 traZODone [Desyrel] 100 mg PO HS 30 Days #30 tab 06/14/17 Lipase/Protease/Amylase [Creon Dr 1 each PO AC #30 capsule. 08/17/17 3,000 Units Capsule] Naproxen Sodium [Anaprox Ds] 550 mg PO TID #30 tablet 08/22/17 Albuterol Sulfate [Proventil Hfa] 0.09 mg IH Q4 #1 inhaler 08/28/17 Azithromycin 250 mg PO DAILY 3 Days #3 tablet 08/31/17 DiphenhydrAMINE [Benadryl] 50 mg PO PRN PRN #20 cap 08/31/17 Multimineral/Multivitamin 1 tab PO DAILY tab 08/31/17 [Therapeutic-M Tab] hydroCHLOROthiazide [Microzide] 12.5 mg PO DAILY 30 Days #30 cap 08/31/17 Hydroxyzine HCl 25 mg PO TID PRN #15 tablet 09/05/17 Prednisone 50 mg PO DAILY #5 tab 09/05/17 - Allergies Allergies/Adverse Reactions: Allergies Allergy/AdvReac Type Severity Reaction Status Date / Time No Known Allergies Allergy Verified 08/27/17 19:57 Review of Systems ROS Statement: Except As Marked, All Systems Reviewed And Found Negative Skin: Positive for: Rash (Itchy) Physical Exam - Reviewed Nursing Documentation Reviewed: Yes Vital Signs Reviewed: Yes - Physical Exam Appears: Positive for: Well (Comfortable). Negative for: Uncomfortable Head Exam: Positive for: ATRAUMATIC, NORMAL INSPECTION, NORMOCEPHALIC Skin: Positive for: Rash (Macular and papular rash on chest, abdomen and back diffusely) Eye Exam: Positive for: EOMI, Normal appearance, PERRL ENT: Positive for: Normal ENT Inspection Neck: Positive for: Normal Cardiovascular/Chest: Positive for: Regular Rate, Rhythm Respiratory: Positive for: Normal Breath Sounds. Negative for: Respiratory Distress Gastrointestinal/Abdominal: Positive for: Normal Exam, Soft. Negative for: Tenderness Back: Positive for: Normal Inspection Extremity: Positive for: Normal ROM. Negative for: Deformity Neurologic/Psych: Positive for: Alert - ECG O2 Sat by Pulse Oximetry: 98 (RA) Pulse Ox Interpretation: Normal - Progress Re-evaluation Time: 01:30 Condition: Re-examined, Improved Medical Decision Making Medical Decision Making: Time: 20:06 Impression(s): Rash, allergic rash such as drug rash, Urticaria, Possible rash to insect bites, Alcohol Abuse Plan: - Alcohol Serum Stat - Drug Screen, Urine Stat - Atarax 50 mg PO ONCE - Pepcid 20 mg PO STAT - predniSONE Ta 60 mg PO STAT Alcohol Quantitative Stat 230 [high] Scribe Attestation: Documented by Shiva Fontenot, acting as a scribe for José Manuel Kelly MD. Provider Scribe Attestation: All medical record entries made by the Scribe were at my direction and personally dictated by me. I have reviewed the chart and agree that the record accurately reflects my personal performance of the history, physical exam, medical decision making, and the department course for this patient. I have also personally directed, reviewed, and agree with the discharge instructions and disposition. Disposition - Clinical Impression Clinical Impression: Alcohol intoxication, Alcohol use, Rash and nonspecific skin eruption - Patient ED Disposition Is Patient to be Admitted: No Doctor Will See Patient In The: Office Counseled Patient/Family Regarding: Studies Performed, Diagnosis, Need For Followup - Disposition Referrals: [facility] [Outside] Disposition: Routine/Home Disposition Time: 01:39 Condition: GOOD Additional Instructions: Take your medications as instructed. Follow up with your PCP in 2-3 days. Prescriptions: Hydroxyzine HCl 25 mg PO TID PRN #15 tablet PRN Reason: Rash Prednisone 50 mg PO DAILY #5 tab Instructions: Skin Rash (DC), Alcohol Abuse and Alcoholism (DC)
[2017-09-04 22:48] LABS: BARBITURATES, UR NEGATIVE (NEGATIVE); BENZODIAZEPINES, UR POSITIVE (NEGATIVE); OPIATES, UR NEGATIVE (NEGATIVE); PHENCYCLIDINE, UR NEGATIVE (NEGATIVE)
[2017-09-05 03:30] VITALS: BP 149/90; PULSE 89; RESP 18; TEMP 98.4
== END 2017-09-05 03:20 | disposition home or self-care (01) ==
LOC: H.ER 19:16
DX: R21 Rash and other nonspecific skin eruption (principal); F10.129 Alcohol abuse with intoxication, unspecified; E11.9 Type 2 diabetes mellitus without complications; E78.00 Pure hypercholesterolemia, unspecified; L27.0 Generalized skin eruption due to drugs and medicaments taken internally; Z79.84 Long term (current) use of oral hypoglycemic drugs

== ENCOUNTER 2017-09-05 21:13 | Emergency (ER) | payer MEDICAID, OTHER ==
[2017-09-05 21:13] VITALS: BMI 25.7
[2017-09-05] MEDS ORDERED: Albuterol-Ipratrop 3 mg / 0.5 (3 ml) UD INH STA (22:20)
[2017-09-05] MEDS ORDERED: Albuterol-Ipratrop 3 mg / 0.5 (3 ml) UD ONE (22:20)
--- NOTE | 2017-09-06 00:28 | ED PDOC ---
HPI: SOB/CHF/COPD Time Seen by Provider: 09/05/17 22:01 Chief Complaint (Nursing): Shortness Of Breath Chief Complaint (Provider): Shortness Of Breath History Per: Patient History/Exam Limitations: no limitations Onset/Duration Of Symptoms: Days Current Symptoms Are (Timing): Still Present Additional Complaint(s): 57 year old male presents to the ED complaining of shortness of breath and wheezing. PMD: none provided Past Medical History Reviewed: Historical Data, Nursing Documentation, Vital Signs Vital Signs: Last Vital Signs Temp 98.2 F 09/06/17 02:54 Pulse 94 H 09/06/17 02:54 Resp 18 09/06/17 02:54 BP 120/76 09/06/17 02:54 Pulse Ox 98 09/06/17 02:54 - Medical History PMH: Anemia, Anxiety, Asthma, Back Problems, Bipolar Disorder, COPD, Depression , Diabetes, Gastritis (secondary to ETOH), GERD, Hypercholesterolemia, Pancreatitis (secondary to ETOH), Schizophrenia, Seizures (secondary to ETOH withdrawal), Chronic Pain (low back pain ) Denies: CHF, Dementia, Emphysema, Parkinson's Disease, Peripheral Edema, Pneumonia, Pulmonary Embolism, Chronic Kidney Disease, Sexually Transmitted Disease, Sleep Apnea - Surgical History Surgical History: Back Surgery Denies: Pacemaker - Family History Family History: States: Diabetes - Social History Current smoker - smoking cessation education provided: Yes (Heavy Smoker > 10 Packs a day) Alcohol: < 2 Drinks/Day Drugs: Other (Yes) - Immunization History Hx Tetanus Toxoid Vaccination: Yes (As per patient, TDaP uptodate ( about 3 years ago)) Hx Influenza Vaccination: No Hx Pneumococcal Vaccination: No - Home Medications Home Medications: Ambulatory Orders Medication Instructions Recorded Albuterol HFA [Ventolin HFA 90 2 puff INH RQ8 PRN inhaler 06/14/17 mcg/actuation (8 g)] Albuterol/Ipratropium [Duoneb 3 3 ml INH RQ6 PRN neb 06/14/17 mg/0.5 mg (3 ml) UD] Benzonatate [Tessalon Perles] 100 mg PO TID PRN sgl 06/14/17 Dextrose Oral [Glutose 15] 0 gm PO ONCE PRN tube 06/14/17 Famotidine [Pepcid] 20 mg PO BID #0 tab 06/14/17 Folic Acid 1 mg PO DAILY tab 06/14/17 Gabapentin [Neurontin] 100 mg PO TID 30 Days #90 cap 06/14/17 Glucagon [Glucagen Diagnostic Kit] 0 mg IM STAT PRN vial 06/14/17 Insulin Human Regular [HumuLIN R] 0 units SC ACHS ml 06/14/17 Multimineral/Multivitamin 1 tab PO DAILY 30 Days #30 tab 06/14/17 [Therapeutic-M Tab] QUEtiapine [SEROquel] 300 mg PO HS 30 Days #30 tab 06/14/17 Thiamine [Vitamin B1 Tab] 100 mg PO DAILY 30 Days #30 tab 06/14/17 metFORMIN [glucOPHAGE] 850 mg PO DAILY #90 tab 06/14/17 traZODone [Desyrel] 100 mg PO HS 30 Days #30 tab 06/14/17 Lipase/Protease/Amylase [Creon Dr 1 each PO AC #30 capsule. 08/17/17 3,000 Units Capsule] Naproxen Sodium [Anaprox Ds] 550 mg PO TID #30 tablet 08/22/17 Albuterol Sulfate [Proventil Hfa] 0.09 mg IH Q4 #1 inhaler 08/28/17 Azithromycin 250 mg PO DAILY 3 Days #3 tablet 08/31/17 DiphenhydrAMINE [Benadryl] 50 mg PO PRN PRN #20 cap 08/31/17 Multimineral/Multivitamin 1 tab PO DAILY tab 08/31/17 [Therapeutic-M Tab] hydroCHLOROthiazide [Microzide] 12.5 mg PO DAILY 30 Days #30 cap 08/31/17 Hydroxyzine HCl 25 mg PO TID PRN #15 tablet 09/05/17 Prednisone 50 mg PO DAILY #5 tab 09/05/17 - Allergies Allergies/Adverse Reactions: Allergies Allergy/AdvReac Type Severity Reaction Status Date / Time No Known Allergies Allergy Verified 08/27/17 19:57 Review of Systems ROS Statement: Except As Marked, All Systems Reviewed And Found Negative Respiratory: Positive for: Shortness of Breath, Wheezing Physical Exam - Reviewed Nursing Documentation Reviewed: Yes Vital Signs Reviewed: Yes - Physical Exam Appears: Positive for: Non-toxic, No Acute Distress Head Exam: Positive for: NORMOCEPHALIC Skin: Positive for: Normal Color, Warm, Dry Cardiovascular/Chest: Positive for: Regular Rate, Rhythm. Negative for: Murmur Respiratory: Positive for: Wheezing. Negative for: Respiratory Distress Gastrointestinal/Abdominal: Positive for: Normal Exam, Soft Extremity: Positive for: Normal ROM. Negative for: Deformity Neurologic/Psych: Positive for: Alert, Oriented. Negative for: Motor/Sensory Deficits - ECG O2 Sat by Pulse Oximetry: 96 (RA) Pulse Ox Interpretation: Normal Medical Decision Making Medical Decision Making: Time: 22:20 Initial Plan: sob, likely coopd --Duoneb 3 ml INH --Peak flow Pre/post 00:31 --Duoneb 3 ml INH --Peak flow Pre/post Patient was wheezing upon arrival and given albuterol treatment. Currently is doing much better. Time: 02:04 --Upon reevaluation, patient's symptoms have improved. He requires no further treatment at the ED at this time. Will be discharged home. Follow up with PMD. Scribe Attestation: Documented by Tamara Roberts, acting as a scribe for Denae Chun MD Provider Scribe Attestation: All medical record entries made by the Scribe were at my direction and personally dictated by me. I have reviewed the chart and agree that the record accurately reflects my personal performance of the history, physical exam, medical decision making, and the department course for this patient. I have also personally directed, reviewed, and agree with the discharge instructions and disposition. Disposition - Clinical Impression Clinical Impression: COPD (chronic obstructive pulmonary disease) - Patient ED Disposition Is Patient to be Admitted: No - Disposition Referrals: [facility] [Outside] [facility] [place] [Outside] Disposition: Routine/Home Disposition Time: 01:06 Condition: IMPROVED Additional Instructions: follow up with your primary doctor in 1-2 days return to the ED with any worsening or concerning symptoms Instructions: COPD Including Emphysema (DC) Forms: [employer] (Cameroonian)
[2017-09-06] MEDS ORDERED: Albuterol-Ipratrop 3 mg / 0.5 (3 ml) UD INH STA (00:31)
[2017-09-06] MEDS ORDERED: Albuterol-Ipratrop 3 mg / 0.5 (3 ml) UD ONE (01:03)
[2017-09-06 02:56] VITALS: BP 120/76; PULSE 94; RESP 18; TEMP 98.2
[2017-09-06 04:07] VITALS: O2SAT 96
== END 2017-09-06 02:35 | disposition home or self-care (01) ==
LOC: H.ER 21:13
DX: J44.9 Chronic obstructive pulmonary disease, unspecified (principal); E78.00 Pure hypercholesterolemia, unspecified; K21.9 Gastro-esophageal reflux disease without esophagitis; Z79.84 Long term (current) use of oral hypoglycemic drugs; Z87.19 Personal history of other diseases of the digestive system

== ENCOUNTER 2017-09-06 16:51 | Emergency (ER) | payer OTHER ==
[2017-09-06 16:52] VITALS: BMI 25.7
[2017-09-06 16:56] VITALS: BP 133/78; PULSE 112; RESP 16; TEMP 98.4; O2SAT 97
--- NOTE | 2017-09-06 17:27 | ED PDOC ---
HPI: Psych/Substance Abuse Time Seen by Provider: 09/06/17 17:17 Chief Complaint (Nursing): Alcohol Ingestion Chief Complaint (Provider): etoh History Per: Patient, EMS Additional Complaint(s): 57-year-old male well known to the emergency department presents via EMS acutely intoxicated. Patient is found asleep retching station. Upon arrival patient offers no acute complaints. Patient is well-known to this emergency Department. Past Medical History Reviewed: Historical Data, Nursing Documentation, Vital Signs Vital Signs: Last Vital Signs Temp 98.4 F 09/06/17 16:53 Pulse 112 H 09/06/17 16:53 Resp 16 09/06/17 16:53 BP 133/78 09/06/17 16:53 Pulse Ox 97 09/06/17 16:53 - Medical History PMH: Anemia, Anxiety, Asthma, Back Problems, Bipolar Disorder, COPD, Depression , Diabetes, Gastritis (secondary to ETOH), GERD, Hypercholesterolemia, Pancreatitis (secondary to ETOH), Schizophrenia, Seizures (secondary to ETOH withdrawal), Chronic Pain (low back pain ) - Surgical History Surgical History: Back Surgery - Family History Family History: States: Diabetes - Social History Alcohol: > 2 Drinks/Day - Home Medications Home Medications: Ambulatory Orders Medication Instructions Recorded Albuterol HFA [Ventolin HFA 90 2 puff INH RQ8 PRN inhaler 06/14/17 mcg/actuation (8 g)] Albuterol/Ipratropium [Duoneb 3 3 ml INH RQ6 PRN neb 06/14/17 mg/0.5 mg (3 ml) UD] Benzonatate [Tessalon Perles] 100 mg PO TID PRN sgl 06/14/17 Dextrose Oral [Glutose 15] 0 gm PO ONCE PRN tube 06/14/17 Famotidine [Pepcid] 20 mg PO BID #0 tab 06/14/17 Folic Acid 1 mg PO DAILY tab 06/14/17 Gabapentin [Neurontin] 100 mg PO TID 30 Days #90 cap 06/14/17 Glucagon [Glucagen Diagnostic Kit] 0 mg IM STAT PRN vial 06/14/17 Insulin Human Regular [HumuLIN R] 0 units SC ACHS ml 06/14/17 Multimineral/Multivitamin 1 tab PO DAILY 30 Days #30 tab 06/14/17 [Therapeutic-M Tab] QUEtiapine [SEROquel] 300 mg PO HS 30 Days #30 tab 06/14/17 Thiamine [Vitamin B1 Tab] 100 mg PO DAILY 30 Days #30 tab 06/14/17 metFORMIN [glucOPHAGE] 850 mg PO DAILY #90 tab 06/14/17 traZODone [Desyrel] 100 mg PO HS 30 Days #30 tab 06/14/17 Lipase/Protease/Amylase [Creon Dr 1 each PO AC #30 capsule. 08/17/17 3,000 Units Capsule] Naproxen Sodium [Anaprox Ds] 550 mg PO TID #30 tablet 08/22/17 Albuterol Sulfate [Proventil Hfa] 0.09 mg IH Q4 #1 inhaler 08/28/17 Azithromycin 250 mg PO DAILY 3 Days #3 tablet 08/31/17 DiphenhydrAMINE [Benadryl] 50 mg PO PRN PRN #20 cap 08/31/17 Multimineral/Multivitamin 1 tab PO DAILY tab 08/31/17 [Therapeutic-M Tab] hydroCHLOROthiazide [Microzide] 12.5 mg PO DAILY 30 Days #30 cap 08/31/17 Hydroxyzine HCl 25 mg PO TID PRN #15 tablet 09/05/17 Prednisone 50 mg PO DAILY #5 tab 09/05/17 - Allergies Allergies/Adverse Reactions: Allergies Allergy/AdvReac Type Severity Reaction Status Date / Time No Known Allergies Allergy Verified 09/06/17 16:53 Review of Systems ROS Statement: Except As Marked, All Systems Reviewed And Found Negative Psych: Positive for: Other (etoh) Physical Exam - Reviewed Nursing Documentation Reviewed: Yes Vital Signs Reviewed: Yes - Physical Exam Appears: Positive for: Well, Non-toxic, No Acute Distress Skin: Negative for: Rash Eye Exam: Positive for: Normal appearance Cardiovascular/Chest: Positive for: Regular Rate, Rhythm Respiratory: Positive for: Normal Breath Sounds Neurologic/Psych: Positive for: Other (Intoxicated, answers some questions appropriately) - ECG O2 Sat by Pulse Oximetry: 97 Pulse Ox Interpretation: Normal Medical Decision Making Medical Decision Makin-year-old intoxicated male with history of alcohol abuse Plan: BAL Glucose POC BAL: 262 Glucose POC: 128 7:00 pm: Patient is awake, alert, has steady gait, he is walking around ER. Patient is stable for discharge. Disposition - Clinical Impression Clinical Impression: Alcohol intoxication - Patient ED Disposition Is Patient to be Admitted: No Counseled Patient/Family Regarding: Need For Followup - Disposition Referrals: [facility] [Outside] Disposition: Routine/Home Disposition Time: 18:56 Condition: STABLE Instructions: Alcohol Abuse and Alcoholism (DC) Forms: [employer] (Bhutanese)
== END 2017-09-07 00:25 | disposition home or self-care (01) ==
LOC: H.ER 16:51
DX: F10.129 Alcohol abuse with intoxication, unspecified (principal); E11.9 Type 2 diabetes mellitus without complications; Z86.59 Personal history of other mental and behavioral disorders; J44.9 Chronic obstructive pulmonary disease, unspecified; Y90.8 Blood alcohol level of 240 mg/100 ml or more; Z79.84 Long term (current) use of oral hypoglycemic drugs; Z87.19 Personal history of other diseases of the digestive system; E78.00 Pure hypercholesterolemia, unspecified

== ENCOUNTER 2017-09-09 00:17 | Emergency (ER) | payer OTHER ==
[2017-09-09 00:17] VITALS: BMI 25.7
[2017-09-09] MEDS ORDERED: Albuterol-Ipratrop 3 mg / 0.5 (3 ml) UD INH STA ×2 (02:08→02:10)
[2017-09-09] MEDS ORDERED: Albuterol-Ipratrop 3 mg / 0.5 (3 ml) UD ONE (02:20)
--- NOTE | 2017-09-09 03:06 | ED PDOC ---
HPI: Influenza Time Seen by Provider: 09/09/17 01:23 Chief Complaint: Cough, Cold, Congestion Chief Complaint (Provider): Cough, Cold, Congestion History Per: Patient Exam Limitations: no limitations Additional complaint(s):: 57 year old male with a past medical history of chronic obstructive pulmonary disease (COPD) who presents to the emergency department with a complaint of feeling shortness of breath, cough, and pruritic rash to the chest and face. Nanci is well known to the provider with multiple visits to this emergency department as well as bed seeking behavior. States he uses inhaler for COPD with little to no relief. Denies any further medical complaints. Past Medical History Reviewed: Historical Data, Nursing Documentation, Vital Signs Vital Signs: Last Vital Signs Temp 98.0 F 09/09/17 01:01 Pulse 95 H 09/09/17 01:01 Resp 18 09/09/17 01:01 BP 130/81 09/09/17 01:01 Pulse Ox 98 09/09/17 01:01 - Medical History PMH: Anemia, Anxiety, Asthma, Back Problems, Bipolar Disorder, COPD, Depression , Diabetes, Gastritis (secondary to ETOH), GERD, Hypercholesterolemia, Pancreatitis (secondary to ETOH), Schizophrenia, Seizures (secondary to ETOH withdrawal), Chronic Pain (low back pain ) Denies: Chronic Kidney Disease, Sexually Transmitted Disease - Surgical History Surgical History: Back Surgery - Family History Family History: States: Diabetes - Social History Current smoker - smoking cessation education provided: Yes (Daily) - Immunization History Hx Tetanus Toxoid Vaccination: Yes (As per patient, TDaP uptodate ( about 3 years ago)) Hx Influenza Vaccination: No Hx Pneumococcal Vaccination: No - Home Medications Home Medications: Ambulatory Orders Medication Instructions Recorded Albuterol HFA [Ventolin HFA 90 2 puff INH RQ8 PRN inhaler 06/14/17 mcg/actuation (8 g)] Albuterol/Ipratropium [Duoneb 3 3 ml INH RQ6 PRN neb 06/14/17 mg/0.5 mg (3 ml) UD] Benzonatate [Tessalon Perles] 100 mg PO TID PRN sgl 06/14/17 Dextrose Oral [Glutose 15] 0 gm PO ONCE PRN tube 06/14/17 Famotidine [Pepcid] 20 mg PO BID #0 tab 01/10/18 Folic Acid 1 mg PO DAILY tab 06/14/17 Gabapentin [Neurontin] 100 mg PO TID 30 Days #90 cap 06/14/17 Glucagon [Glucagen Diagnostic Kit] 0 mg IM STAT PRN vial 06/14/17 Insulin Human Regular [HumuLIN R] 0 units SC ACHS ml 06/14/17 Multimineral/Multivitamin 1 tab PO DAILY 30 Days #30 tab 06/14/17 [Therapeutic-M Tab] QUEtiapine [SEROquel] 300 mg PO HS 30 Days #30 tab 06/14/17 Thiamine [Vitamin B1 Tab] 100 mg PO DAILY 30 Days #30 tab 06/14/17 metFORMIN [glucOPHAGE] 850 mg PO DAILY #90 tab 06/14/17 traZODone [Desyrel] 100 mg PO HS 30 Days #30 tab 06/14/17 Lipase/Protease/Amylase [Creon Dr 1 each PO AC #30 capsule.dr 08/17/17 3,000 Units Capsule] Naproxen Sodium [Anaprox Ds] 550 mg PO TID #30 tablet 08/22/17 Albuterol Sulfate [Proventil Hfa] 0.09 mg IH Q4 #1 inhaler 08/28/17 Azithromycin 250 mg PO DAILY 3 Days #3 tablet 08/31/17 DiphenhydrAMINE [Benadryl] 50 mg PO PRN PRN #20 cap 08/31/17 Multimineral/Multivitamin 1 tab PO DAILY tab 08/31/17 [Therapeutic-M Tab] hydroCHLOROthiazide [Microzide] 12.5 mg PO DAILY 30 Days #30 cap 08/31/17 Hydroxyzine HCl 25 mg PO TID PRN #15 tablet 09/05/17 Prednisone 50 mg PO DAILY #5 tab 09/05/17 Albuterol HFA [Ventolin HFA 90 1 - 2 puff IH Q6 PRN #1 inhaler 09/09/17 mcg/actuation (8 g)] Methylprednisolone [Medrol Dosepak] 4 mg PO ASDIR #1 pkg 09/09/17 - Allergies Allergies/Adverse Reactions: Allergies Allergy/AdvReac Type Severity Reaction Status Date / Time No Known Allergies Allergy Verified 09/07/17 19:58 Review of Systems ROS Statement: Except As Marked, All Systems Reviewed And Found Negative (As per HPI, otherwise negative) Respiratory: Positive for: Cough, Shortness of Breath Skin: Positive for: Rash (pruritic rash to the chest and face) Physical Exam - Reviewed Nursing Documentation Reviewed: Yes Vital Signs Reviewed: Yes - Physical Exam Appears: Positive for: No Acute Distress Head Exam: Positive for: NORMAL INSPECTION Skin: Positive for: Warm, Dry, Rash (Urticarial rash to the chest and face) Cardiovascular/Chest: Positive for: Regular Rate, Rhythm. Negative for: Murmur Respiratory: Positive for: Wheezing (Bilateral expiratory wheeze). Negative for : Normal Breath Sounds, Accessory Muscle Use, Respiratory Distress Gastrointestinal/Abdominal: Positive for: Normal Exam, Soft. Negative for: Tenderness Neurologic/Psych: Positive for: Alert, Oriented (x3) Medical Decision Making Medical Decision Making: Time: 0208 Initial Impression: chronic obstructive pulmonary disease (COPD) exacerbation Initial Plan: Duoneb 3 ml INH Duoneb 3 ml INH Pepcid 20 mg IV Methylprednisolone 125 mg IVP Reevaluation Upon re-eval patient feels markedly improved and is stable upon discharge Dx COPD Exacerbation Scribe Attestation: Documented by Veronica Falcon acting as a scribe for Alejandro Barrera MD. Scribe Attestation: All medical record entries made by the Scribe were at my direction and personally dictated by me. I have reviewed the chart and agree that the record accurately reflects my personal performance of the history, physical exam, medical decision making, and the department course for this patient. I have also personally directed, reviewed, and agree with the discharge instructions and disposition. - ECG O2 Sat by Pulse Oximetry: 98 Disposition - Clinical Impression Clinical Impression: COPD exacerbation - Disposition Disposition Time: 02:00 Condition: STABLE Prescriptions: Albuterol HFA [Ventolin HFA 90 mcg/actuation (8 g)] 1 - 2 puff IH Q6 PRN #1 inhaler PRN Reason: Shortness Of Breath Methylprednisolone [Medrol Dosepak] 4 mg PO ASDIR #1 pkg Instructions: Chronic Obstructive Pulmonary Disease (COPD), Including Emphysema Forms: [employer] (Montserratian)
[2017-09-09 03:50] VITALS: BP 130/78; PULSE 96; RESP 20; TEMP 98.1
[2017-09-09 06:45] VITALS: O2SAT 98
== END 2017-09-09 04:12 | disposition home or self-care (01) ==
LOC: H.ER 00:17
DX: J44.1 Chronic obstructive pulmonary disease with (acute) exacerbation (principal); Z79.84 Long term (current) use of oral hypoglycemic drugs
CPT/HCPCS: 94640; 96374; 99282; J2930

== ENCOUNTER 2017-09-12 00:01 | Emergency (ER) | payer OTHER ==
[2017-09-12 00:01] VITALS: BMI 25.7
[2017-09-12] MEDS ORDERED: Albuterol-Ipratrop 3 mg / 0.5 (3 ml) UD IH STA (03:57)
--- NOTE | 2017-09-12 04:03 | ED PDOC ---
HPI: General Adult Time Seen by Provider: 09/12/17 03:49 Chief Complaint (Nursing): Med Refill Chief Complaint (Provider): medication refill History Per: Patient History/Exam Limitations: no limitations Onset/Duration Of Symptoms: Days (2) Current Symptoms Are (Timing): Still Present Additional Complaint(s): 57 y/o male presents requesting medication refill on ventolin inhaler. Patient states he ran out two days ago, and does not have appointment to see his primary doctor until 09/18. Denies fever, chest pain, shortness of breath, palpitations. Past Medical History Reviewed: Historical Data, Nursing Documentation, Vital Signs Vital Signs: Last Vital Signs Temp 98 F 09/12/17 00:07 Pulse 100 H 09/12/17 00:07 Resp 18 09/12/17 00:07 BP 138/82 09/12/17 00:07 Pulse Ox 98 09/12/17 04:03 - Medical History PMH: Anemia, Anxiety, Asthma, Back Problems, Bipolar Disorder, COPD, Depression , Diabetes, Gastritis (secondary to ETOH), GERD, Hypercholesterolemia, Pancreatitis (secondary to ETOH), Schizophrenia, Seizures (secondary to ETOH withdrawal), Chronic Pain (low back pain ) Denies: Chronic Kidney Disease, Sexually Transmitted Disease - Surgical History Surgical History: Back Surgery - Family History Family History: States: Diabetes - Immunization History Hx Tetanus Toxoid Vaccination: Yes (As per patient, TDaP uptodate ( about 3 years ago)) Hx Influenza Vaccination: No Hx Pneumococcal Vaccination: No - Home Medications Home Medications: Ambulatory Orders Medication Instructions Recorded Albuterol HFA [Ventolin HFA 90 2 puff INH RQ8 PRN inhaler 06/14/17 mcg/actuation (8 g)] Albuterol/Ipratropium [Duoneb 3 3 ml INH RQ6 PRN neb 06/14/17 mg/0.5 mg (3 ml) UD] Benzonatate [Tessalon Perles] 100 mg PO TID PRN sgl 06/14/17 Dextrose Oral [Glutose 15] 0 gm PO ONCE PRN tube 06/14/17 Famotidine [Pepcid] 20 mg PO BID #0 tab 06/14/17 Folic Acid 1 mg PO DAILY tab 06/14/17 Gabapentin [Neurontin] 100 mg PO TID 30 Days #90 cap 06/14/17 Glucagon [Glucagen Diagnostic Kit] 0 mg IM STAT PRN vial 06/14/17 Insulin Human Regular [HumuLIN R] 0 units SC ACHS ml 06/14/17 Multimineral/Multivitamin 1 tab PO DAILY 30 Days #30 tab 06/14/17 [Therapeutic-M Tab] QUEtiapine [SEROquel] 300 mg PO HS 30 Days #30 tab 06/14/17 Thiamine [Vitamin B1 Tab] 100 mg PO DAILY 30 Days #30 tab 06/14/17 metFORMIN [glucOPHAGE] 850 mg PO DAILY #90 tab 06/14/17 traZODone [Desyrel] 100 mg PO HS 30 Days #30 tab 06/14/17 Lipase/Protease/Amylase [Creon Dr 1 each PO AC #30 capsule. 08/17/17 3,000 Units Capsule] Naproxen Sodium [Anaprox Ds] 550 mg PO TID #30 tablet 08/22/17 Albuterol Sulfate [Proventil Hfa] 0.09 mg IH Q4 #1 inhaler 08/28/17 Azithromycin 250 mg PO DAILY 3 Days #3 tablet 08/31/17 DiphenhydrAMINE [Benadryl] 50 mg PO PRN PRN #20 cap 08/31/17 Multimineral/Multivitamin 1 tab PO DAILY tab 08/31/17 [Therapeutic-M Tab] hydroCHLOROthiazide [Microzide] 12.5 mg PO DAILY 30 Days #30 cap 08/31/17 Hydroxyzine HCl 25 mg PO TID PRN #15 tablet 09/05/17 Prednisone 50 mg PO DAILY #5 tab 09/05/17 Albuterol HFA [Ventolin HFA 90 1 - 2 puff IH Q6 PRN #1 inhaler 09/09/17 mcg/actuation (8 g)] Methylprednisolone [Medrol Dosepak] 4 mg PO ASDIR #1 pkg 09/09/17 Albuterol HFA [Ventolin HFA 90 1 puff IH Q4 PRN #1 inh 09/12/17 mcg/actuation (8 g)] - Allergies Allergies/Adverse Reactions: Allergies Allergy/AdvReac Type Severity Reaction Status Date / Time No Known Allergies Allergy Verified 09/07/17 19:58 Review of Systems ROS Statement: Except As Marked, All Systems Reviewed And Found Negative Respiratory: Positive for: Wheezing Physical Exam - Reviewed Nursing Documentation Reviewed: Yes Vital Signs Reviewed: Yes - Physical Exam Appears: Positive for: Well, Non-toxic, No Acute Distress Head Exam: Positive for: ATRAUMATIC, NORMAL INSPECTION, NORMOCEPHALIC Cardiovascular/Chest: Positive for: Regular Rate, Rhythm Respiratory: Positive for: Wheezing (mild expiratory). Negative for: Accessory Muscle Use, Crackles, Rales, Rhonchi, Respiratory Distress Gastrointestinal/Abdominal: Positive for: Normal Exam Back: Positive for: Normal Inspection Extremity: Positive for: Normal ROM Neurologic/Psych: Positive for: Alert, Oriented - ECG O2 Sat by Pulse Oximetry: 98 Disposition - Clinical Impression Clinical Impression: COPD (chronic obstructive pulmonary disease), Medication refill - Patient ED Disposition Is Patient to be Admitted: No Counseled Patient/Family Regarding: Studies Performed, Diagnosis, Need For Followup, Rx Given - Disposition Disposition: Routine/Home Disposition Time: 04:05 Condition: IMPROVED Prescriptions: Albuterol HFA [Ventolin HFA 90 mcg/actuation (8 g)] 1 puff IH Q4 PRN #1 inh PRN Reason: Wheezing Instructions: Exacerbation of COPD
[2017-09-12 04:43] VITALS: BP 136/83; PULSE 93; RESP 16; TEMP 98.4
[2017-09-12 04:45] VITALS: O2SAT 98
== END 2017-09-12 04:38 | disposition home or self-care (01) ==
LOC: H.ER 00:01
DX: J44.9 Chronic obstructive pulmonary disease, unspecified (principal); Z86.59 Personal history of other mental and behavioral disorders; E11.9 Type 2 diabetes mellitus without complications; Z76.0 Encounter for issue of repeat prescription; Z79.84 Long term (current) use of oral hypoglycemic drugs; Z87.19 Personal history of other diseases of the digestive system

== ENCOUNTER 2017-09-12 22:58 | Emergency (ER) | payer OTHER ==
[2017-09-12 22:58] VITALS: BMI 25.7
[2017-09-12 23:20] VITALS: BP 159/110; PULSE 93; RESP 17; TEMP 97.9; O2SAT 98
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
[2017-09-12] MEDS ORDERED: Albuterol-Ipratrop 3 mg / 0.5 (3 ml) UD ONE ×2 (23:28→23:44)
[2017-09-12] MEDS ORDERED: Dexamethasone 4 mg/1 ml ONE (23:39)
[2017-09-13] MEDS ORDERED: Albuterol-Ipratrop 3 mg / 0.5 (3 ml) UD INH STA (00:16)
== END 2017-09-13 00:27 | disposition home or self-care (01) ==
LOC: H.ER 22:58
DX: J44.1 Chronic obstructive pulmonary disease with (acute) exacerbation (principal); R05 Cough; E11.9 Type 2 diabetes mellitus without complications; E78.00 Pure hypercholesterolemia, unspecified; Z86.59 Personal history of other mental and behavioral disorders; Z79.84 Long term (current) use of oral hypoglycemic drugs; Z87.19 Personal history of other diseases of the digestive system
CPT/HCPCS: 96372; 99282; J1100

== ENCOUNTER 2017-09-22 14:11 | Emergency (ER) | payer MEDICAID, OTHER ==
[2017-09-22 14:11] VITALS: BMI 25.7
[2017-09-22 14:16] VITALS: TEMP 97.5
[2017-09-22] MEDS ORDERED: Multivitamin (MVI) 10 ML, Thiamine 100 MG, Folic Acid 1 MG in Sodium Chloride 0.9% 1,00... IV ONE (14:33)
[2017-09-22 14:42] VITALS: RESP 18
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
[2017-09-22 15:43] VITALS: BP 127/72; PULSE 80
[2017-09-22 15:49] LABS: BASO # 0.1 K/uL (0.0-0.2); BASO % 0.7 % (0.0-2.0); EOS # 0.1 K/uL (0.0-0.7); EOS % 0.7 % (0.0-4.0); LYMPH # 2.7 K/uL (1.0-4.3); LYMPH % 30.7 % (20.0-40.0); MEAN CELL VOLUME 99.2 fl (80.0-94.0); MEAN CORPUSCULAR HEMOGLOBIN 34.3 pg (27.0-31.0); MEAN CORPUSCULAR HGB CONC 34.6 g/dL (33.0-37.0); MEAN PLATELET VOLUME 7.5 fl (7.2-11.7); MONO # 0.8 K/uL (0.0-0.8); MONO % 8.7 % (0.0-10.0); NEUT # 5.3 K/uL (1.8-7.0); NEUT % 59.2 % (50.0-75.0); NRBC % 0.2 % (0.0-0.0); RBC 4.08 Mil/uL (4.40-5.90); RED CELL DISTRIBUTION WIDTH 16.3 % (11.5-14.5); WHITE BLOOD COUNT 8.9 K/uL (4.8-10.8)
[2017-09-22 16:44] LABS: ALB/GLOB RATIO 1.4 (1.0-2.1); ALBUMIN 4.4 g/dL (3.5-5.0); ALT/SGPT 110 U/L (21-72); AST/SGOT 52 U/L (17-59); BLOOD UREA NITROGEN 24 mg/dl (9-20); CALCIUM 9.2 mg/dL (8.4-10.2); GFR AFRICAN-AMERICAN > 60; GFR NON-AFRICAN AMERICAN > 60
[2017-09-22 17:11] VITALS: O2SAT 97
== END 2017-09-22 20:10 | disposition home or self-care (01) ==
LOC: H.ER 14:11
DX: F10.129 Alcohol abuse with intoxication, unspecified (principal); M79.2 Neuralgia and neuritis, unspecified; R53.1 Weakness; E11.9 Type 2 diabetes mellitus without complications; E78.00 Pure hypercholesterolemia, unspecified; F20.9 Schizophrenia, unspecified; F31.9 Bipolar disorder, unspecified; F41.9 Anxiety disorder, unspecified; J44.9 Chronic obstructive pulmonary disease, unspecified; K21.9 Gastro-esophageal reflux disease without esophagitis; K85.90 Acute pancreatitis without necrosis or infection, unspecified; Z79.84 Long term (current) use of oral hypoglycemic drugs; Z87.19 Personal history of other diseases of the digestive system
CPT/HCPCS: 80053; 80320; 83735; 85025; 96374; 99284; J1885; J3411; J7040

== ENCOUNTER 2017-09-30 17:12 | Emergency (ER) | payer OTHER ==
[2017-09-30 17:12] VITALS: BMI 25.7
[2017-09-30] MEDS ORDERED: Albuterol-Ipratrop 3 mg / 0.5 (3 ml) UD INH STA ×2 (17:34→19:54)
[2017-09-30] MEDS ORDERED: Sodium Chloride 0.9% 1,000 ML IV STA (17:34)
--- NOTE | 2017-09-30 17:34 | ED PDOC ---
HPI: General Adult Time Seen by Provider: 09/30/17 17:31 Chief Complaint (Nursing): Shortness Of Breath Chief Complaint (Provider): etoh, SOB History Per: Patient, EMS Additional Complaint(s): 57-year-old male with history of alcohol abuse presents to emergency department complaining of shortness of breath. Patient states he is intoxicated. Patient admits changing daily. He also has abdominal pain which is chronic. He denies nausea or vomiting. Patient is well-known to emergency room. Past Medical History Reviewed: Historical Data, Nursing Documentation, Vital Signs Vital Signs: Last Vital Signs Temp 98.8 F 10/01/17 07:43 Pulse 88 10/01/17 07:43 Resp 18 10/01/17 07:43 BP 132/78 10/01/17 07:43 Pulse Ox 98 10/01/17 07:43 - Medical History PMH: Anemia, Anxiety, Asthma, Back Problems, Bipolar Disorder, COPD, Depression , Diabetes, Gastritis, GERD, Hypercholesterolemia, Pancreatitis, Schizophrenia, Seizures (secondary to ETOH withdrawal), Chronic Pain (low back pain ) - Surgical History Surgical History: Back Surgery - Family History Family History: States: Diabetes - Living Arrangements Living Arrangements: With Family - Social History Alcohol: > 2 Drinks/Day - Immunization History Hx Tetanus Toxoid Vaccination: Yes (As per patient, TDaP uptodate ( about 3 years ago)) Hx Influenza Vaccination: No Hx Pneumococcal Vaccination: No - Home Medications Home Medications: Ambulatory Orders Medication Instructions Recorded Lipase/Protease/Amylase [Saulo Greco 1 each PO AC #30 capsule. 08/17/17 3,000 Units Capsule] Albuterol HFA [Ventolin HFA 90 1 puff IH Q4 PRN #1 inh 09/20/17 mcg/actuation (8 g)] Folic Acid 1 mg PO DAILY #30 tab 09/20/17 Gabapentin [Neurontin] 100 mg PO TID 30 Days #90 cap 09/20/17 Methylprednisolone [Medrol Dose 4 mg PO DAILY #21 mg 09/20/17 Pack (21 tabs)] Mometasone/Formoterol [Dulera 100 13 gm IH BID #1 hfa.aer.ad 09/20/17 Mcg/5 Mcg Inhaler] Montelukast [Singulair] 10 mg PO HS #30 tab 09/20/17 Multimineral/Multivitamin 1 tab PO DAILY #30 tab 09/20/17 [Therapeutic-M Tab] Thiamine [Vitamin B1 Tab] 100 mg PO DAILY 30 Days #30 tab 09/20/17 hydroCHLOROthiazide [Microzide] 12.5 mg PO DAILY 30 Days #30 cap 09/20/17 metFORMIN [glucOPHAGE] 850 mg PO DAILY #90 tab 09/20/17 metroNIDAZOLE [Flagyl] 500 mg PO Q8 #12 tab 09/20/17 Meloxicam [Mobic] 7.5 mg PO BID PRN #14 tab 09/22/17 - Allergies Allergies/Adverse Reactions: Allergies Allergy/AdvReac Type Severity Reaction Status Date / Time No Known Allergies Allergy Verified 09/30/17 17:16 Review of Systems ROS Statement: Except As Marked, All Systems Reviewed And Found Negative Cardiovascular: Negative for: Chest Pain Respiratory: Positive for: Shortness of Breath. Negative for: Cough Gastrointestinal: Positive for: Abdominal Pain Psych: Positive for: Other (etoh) Physical Exam - Reviewed Nursing Documentation Reviewed: Yes Vital Signs Reviewed: Yes - Physical Exam Appears: Positive for: Well, Non-toxic, No Acute Distress Skin: Positive for: Normal Color. Negative for: Rash Eye Exam: Positive for: Normal appearance Cardiovascular/Chest: Positive for: Regular Rate, Rhythm Respiratory: Positive for: Normal Breath Sounds. Negative for: Wheezing, Respiratory Distress Gastrointestinal/Abdominal: Positive for: Tenderness (Mild diffuse tenderness with no rebound or guarding) Back: Negative for: L CVA Tenderness, R CVA Tenderness Extremity: Positive for: Normal ROM. Negative for: Pedal Edema Neurologic/Psych: Positive for: Alert, Other (Intoxicated, answers some questions appropriately) - Laboratory Results Result Diagrams: 09/30/17 17:55 09/30/17 20:30 - ECG Interpretation Of ECG: NSR 94 bpm, LAD, no ST elevations, reviewed by PA and ED attending O2 Sat by Pulse Oximetry: 97 Pulse Ox Interpretation: Normal - Other Rad CXR X-Ray: Interpreted by Me, Viewed By Me X-Ray Interpretation: no acute finding Nebulizer Treatments/Peak Flow - Duonebs Number of Bronchodilator Doses given?: 2 (duoneb) - Steroid Treatment Steroid: Not Clinically Indicated - Clinical Response Clinical Response: Improved Medical Decision Making Medical Decision Makin57 year old intoxicated male with shortness of breath Plan: CBC CMP Lipase CXR EKG BAL Duoneb x 2 Shortness of breath improved after DuoNeb treatments. Alcohol is 334 Disposition - Clinical Impression Clinical Impression: Alcohol intoxication, Shortness of breath - Patient ED Disposition Is Patient to be Admitted: Transfer of Care - Disposition Disposition: Transfer of Care Disposition Time: 20:00 Condition: FAIR Print Language: PASHTO Patient Signed Over To: Cassie Mcclendon Handoff Comments: Case signed out pending diagnostic testing results, sobriety and final disposition
[2017-09-30] MEDS ORDERED: Albuterol-Ipratrop 3 mg / 0.5 (3 ml) UD ONE ×2 (17:48→19:17)
[2017-09-30 18:04] LABS: BASO # 0.1 K/uL (0.0-0.2); BASO % 1.1 % (0.0-2.0); EOS % 0.4 % (0.0-4.0); HEMOGLOBIN 13.8 g/dL (12.0-18.0); LYMPH # 2.7 K/uL (1.0-4.3); LYMPH % 34.1 % (20.0-40.0); MEAN CELL VOLUME 96.5 fl (80.0-94.0); MEAN CORPUSCULAR HEMOGLOBIN 34.3 pg (27.0-31.0); MEAN CORPUSCULAR HGB CONC 35.6 g/dL (33.0-37.0); MEAN PLATELET VOLUME 7.2 fl (7.2-11.7); MONO # 0.5 K/uL (0.0-0.8); MONO % 6.2 % (0.0-10.0); NEUT # 4.6 K/uL (1.8-7.0); NEUT % 58.2 % (50.0-75.0); RBC 4.01 Mil/uL (4.40-5.90); RED CELL DISTRIBUTION WIDTH 15.8 % (11.5-14.5); WHITE BLOOD COUNT 7.9 K/uL (4.8-10.8)
[2017-09-30 18:25] LABS: TROPONIN I 0.026 ng/mL (0.00-0.120)
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
[2017-09-30 21:01] LABS: ALB/GLOB RATIO 1.3 (1.0-2.1); ALBUMIN 3.6 g/dL (3.5-5.0); ALT/SGPT 572 U/L (21-72); AST/SGOT 719 U/L (17-59); BLOOD UREA NITROGEN 14 mg/dl (9-20); CALCIUM 7.7 mg/dL (8.4-10.2); GFR AFRICAN-AMERICAN > 60; GFR NON-AFRICAN AMERICAN > 60
[2017-09-30 21:10] LABS: BENZODIAZEPINES, UR NEGATIVE (NEGATIVE)
[2017-09-30 21:15] LABS: BARBITURATES, UR NEGATIVE (NEGATIVE); LIPASE 468 U/L (23-300); OPIATES, UR NEGATIVE (NEGATIVE); PHENCYCLIDINE, UR NEGATIVE (NEGATIVE)
[2017-09-30 21:56] VITALS: RESP 18
[2017-09-30] MEDS ORDERED: Iohexol 240 (50 ml) PO ONE (23:23)
[2017-09-30] MEDS ORDERED: Iohexol 240 (50 ml) ONE (23:23)
[2017-10-01] MEDS ORDERED: Iohexol 300 100 ML IJ ONE (02:33)
[2017-10-01] MEDS ORDERED: Sodium Chloride 0.9% 100 ML ONE (02:33)
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
[2017-10-01 07:44] VITALS: BP 132/78; PULSE 88; TEMP 98.8
--- NOTE | 2017-10-01 09:33 | RAD ---
HISTORY: Shortness of breath COMPARISON: 08/29/2017. FINDINGS: LUNGS: The lungs are well inflated and clear. PLEURA: No significant pleural effusion identified, no pneumothorax apparent. CARDIOVASCULAR: Normal. OSSEOUS STRUCTURES: Within normal limits for the patient's age. VISUALIZED UPPER ABDOMEN: Normal. OTHER FINDINGS: None. IMPRESSION: No active pulmonary disease.
[2017-10-01 10:41] VITALS: O2SAT 97
--- NOTE | 2017-10-02 09:04 | CARD ---
APPROVED REPORT EKG Measurement Heart [id number] <Conclusion> Normal sinus rhythm Left axis deviation Abnormal ECG motion artefact
== END 2017-10-01 05:20 | disposition home or self-care (01) ==
LOC: H.ER 17:12
DX: R06.02 Shortness of breath (principal); F10.129 Alcohol abuse with intoxication, unspecified; Y90.8 Blood alcohol level of 240 mg/100 ml or more; R94.5 Abnormal results of liver function studies; F41.9 Anxiety disorder, unspecified; Z79.84 Long term (current) use of oral hypoglycemic drugs; J44.9 Chronic obstructive pulmonary disease, unspecified; F31.9 Bipolar disorder, unspecified; F20.9 Schizophrenia, unspecified; E78.00 Pure hypercholesterolemia, unspecified; E11.9 Type 2 diabetes mellitus without complications; K21.9 Gastro-esophageal reflux disease without esophagitis; K85.90 Acute pancreatitis without necrosis or infection, unspecified
CPT/HCPCS: 71045; 74177; 80053; 80320; 80324; 80345; 80346; 80349; 80353; 80358; 80361; 83690; 83992; 84484; 85025; 93005; 96360; 99285; J7040; Q9966; Q9967

== ENCOUNTER 2017-10-03 07:29 | Observation (INO) | payer MEDICARE, OTHER ==
[2017-10-03 07:35] VITALS: BMI 29.9
[2017-10-03] MEDS ORDERED: Sodium Chloride 0.9% 1,000 ML IV STA (07:58)
--- NOTE | 2017-10-03 08:12 | ED PDOC ---
HPI: Psych/Substance Abuse Time Seen by Provider: 10/03/17 07:43 Chief Complaint (Nursing): Abdominal Pain Chief Complaint (Provider): ETOH abuse ED Caveat: Intoxicated History Per: Patient History/Exam Limitations: intoxication Onset/Duration Of Symptoms: Hrs (today) Current Symptoms Are (Timing): Still Present Suicide/Self Injury Attempted (Context): None Associated Symptoms: Other (vomiting and dark black stools) Involuntary Hold By: None Additional Complaint(s): Ryley Torres is a 57 year old male with a past history of alcohol abuse, last drink last night, who presents to the emergency department via EMS with vomiting and dark black stools onset today. He denies any syncope, seizure or hematemesis. Prior chart reviewed, last visit was 3 days ago for asthma. History limited due to intoxication. PMD: None provided. Past Medical History Reviewed: Historical Data, Nursing Documentation, Vital Signs Vital Signs: Last Vital Signs Temp 98 F 10/03/17 07:34 Pulse 123 H 10/03/17 07:34 Resp BP 146/92 H 10/03/17 07:34 Pulse Ox 99 10/03/17 07:34 - Medical History PMH: Anemia, Anxiety, Asthma, Back Problems, Bipolar Disorder, COPD, Depression , Diabetes, Gastritis, GERD, Hypercholesterolemia, Pancreatitis, Schizophrenia, Seizures (secondary to ETOH withdrawal), Chronic Pain (low back pain ) Denies: Chronic Kidney Disease, Sexually Transmitted Disease - Surgical History Surgical History: Back Surgery - Family History Family History: States: Unknown Family Hx, Diabetes - Social History Current smoker - smoking cessation education provided: Yes (Heavy smoker >10 cigarettes daily) Alcohol: > 2 Drinks/Day Drugs: Denies - Immunization History Hx Tetanus Toxoid Vaccination: Yes (As per patient, TDaP uptodate ( about 3 years ago)) Hx Influenza Vaccination: No Hx Pneumococcal Vaccination: No - Home Medications Home Medications: Ambulatory Orders Medication Instructions Recorded Lipase/Protease/Amylase [Saulo Greco 1 each PO AC #30 capsule. 08/17/17 3,000 Units Capsule] Albuterol HFA [Ventolin HFA 90 1 puff IH Q4 PRN #1 inh 09/20/17 mcg/actuation (8 g)] Folic Acid 1 mg PO DAILY #30 tab 09/20/17 Gabapentin [Neurontin] 100 mg PO TID 30 Days #90 cap 09/20/17 Methylprednisolone [Medrol Dose 4 mg PO DAILY #21 mg 09/20/17 Pack (21 tabs)] Mometasone/Formoterol [Dulera 100 13 gm IH BID #1 hfa.aer.ad 09/20/17 Mcg/5 Mcg Inhaler] Montelukast [Singulair] 10 mg PO HS #30 tab 09/20/17 Multimineral/Multivitamin 1 tab PO DAILY #30 tab 09/20/17 [Therapeutic-M Tab] Thiamine [Vitamin B1 Tab] 100 mg PO DAILY 30 Days #30 tab 09/20/17 hydroCHLOROthiazide [Microzide] 12.5 mg PO DAILY 30 Days #30 cap 09/20/17 metFORMIN [glucOPHAGE] 850 mg PO DAILY #90 tab 09/20/17 metroNIDAZOLE [Flagyl] 500 mg PO Q8 #12 tab 09/20/17 Meloxicam [Mobic] 7.5 mg PO BID PRN #14 tab 09/22/17 - Allergies Allergies/Adverse Reactions: Allergies Allergy/AdvReac Type Severity Reaction Status Date / Time No Known Allergies Allergy Verified 10/03/17 07:33 Review of Systems ROS Statement: Except As Marked, All Systems Reviewed And Found Negative Constitutional: Positive for: Weakness Gastrointestinal: Positive for: Abdominal Pain, Melena. Negative for: Hematemesis Neurological: Negative for: Seizures, Other (syncope) Physical Exam - Reviewed Nursing Documentation Reviewed: Yes Vital Signs Reviewed: Yes - Physical Exam Appears: Positive for: Non-toxic. Negative for: Well (poor hygiene. Alcohol on breath) Head Exam: Positive for: ATRAUMATIC, NORMOCEPHALIC Skin: Positive for: Normal Color, Warm, Dry Eye Exam: Positive for: Normal appearance Neck: Positive for: Painless ROM Cardiovascular/Chest: Positive for: Tachycardia. Negative for: Murmur Respiratory: Positive for: Normal Breath Sounds. Negative for: Respiratory Distress Gastrointestinal/Abdominal: Positive for: Tenderness (mild diffused) Extremity: Positive for: Normal ROM (all extremities). Negative for: Deformity , Swelling Neurologic/Psych: Positive for: Alert, Oriented (x2), Other (mild resting tremor ) - Laboratory Results Result Diagrams: 10/03/17 08:22 10/03/17 08:22 - ECG O2 Sat by Pulse Oximetry: 99 (RA) Pulse Ox Interpretation: Normal Medical Decision Making Medical Decision Making: Initial Impression: ETOH abuse Initial Plan: --EKG --Alcohol serum --CMP --Creatine Phosphokinase --Lipase --Troponin I --CBC w/ differential --PTT --PT --Ativan 1 mg IVP --Sodium Chloride 1,000 ml IV 1,000 mls/hr --Protonix Inj 40 mg IVP --Zofran ODT 4 mg PO --Reevaluation -Will plan for IV fluids, Ativan 1 mg for possible early withdrawal, and Protonix pt had tonic clonic seizure in ED. Additional ativan 1mg IV ordered Loaded w Keppra 750mg IV labs reviewed, etoh 37, chemistries deranged w hyponatremia, but chem hemolyzed repeat BMP given seizure, poss GI bleed admit FP service, FP team to perform guiac Scribe Attestation: Documented by Rodolfo Parsons, acting as a scribe for Mitch Rivas MD Provider Scribe Attestation: All medical record entries made by the Scribe were at my direction and personally dictated by me. I have reviewed the chart and agree that the record accurately reflects my personal performance of the history, physical exam, medical decision making, and the department course for this patient. I have also personally directed, reviewed, and agree with the discharge instructions and disposition. Disposition - Clinical Impression Clinical Impression: Alcohol abuse, Alcohol withdrawal, Seizure - Patient ED Disposition Is Patient to be Admitted: Yes - Disposition Disposition Time: 09:30 Condition: FAIR Forms: [employer] (Citizen Of [place])
[2017-10-03 08:57] LABS: INR 1.2 (0.9-1.2); PARTIAL THROMBOPLASTIN TIME 29.3 Seconds (25.6-37.1); PROTHROMBIN TIME 12.9 Seconds (9.8-13.1)
[2017-10-03 09:11] LABS: BASO # 0.1 K/uL (0.0-0.2); BASO % 0.6 % (0.0-2.0); HEMOGLOBIN 13.9 g/dL (12.0-18.0); LYMPH # 1.1 K/uL (1.0-4.3); LYMPH % 13.5 % (20.0-40.0); MEAN CELL VOLUME 96.2 fl (80.0-94.0); MEAN CORPUSCULAR HEMOGLOBIN 34.9 pg (27.0-31.0); MEAN CORPUSCULAR HGB CONC 36.3 g/dL (33.0-37.0); MEAN PLATELET VOLUME 8.1 fl (7.2-11.7); MONO # 0.3 K/uL (0.0-0.8); MONO % 3.2 % (0.0-10.0); NEUT # 7.1 K/uL (1.8-7.0); NEUT % 82.7 % (50.0-75.0); NRBC % 0.6 % (0.0-0.0); RBC 3.97 Mil/uL (4.40-5.90); RED CELL DISTRIBUTION WIDTH 16.1 % (11.5-14.5); WHITE BLOOD COUNT 8.5 K/uL (4.8-10.8)
[2017-10-03 09:20] LABS: ALB/GLOB RATIO 1.3 (1.0-2.1); ALBUMIN 4.2 g/dL (3.5-5.0); ALT/SGPT 557 U/L (21-72); AST/SGOT 714 U/L (17-59); BLOOD UREA NITROGEN 9 mg/dl (9-20); CALCIUM 7.9 mg/dL (8.4-10.2); GFR AFRICAN-AMERICAN > 60; GFR NON-AFRICAN AMERICAN > 60; LIPASE 292 U/L (23-300)
[2017-10-03 10:26] LABS: BLOOD UREA NITROGEN 8 mg/dl (9-20); CALCIUM 7.2 mg/dL (8.4-10.2); GFR AFRICAN-AMERICAN > 60; GFR NON-AFRICAN AMERICAN > 60
--- NOTE | 2017-10-03 10:26 | RAD ---
HISTORY: SOB COMPARISON: Chest radiograph dated 09/30/2017. FINDINGS: LUNGS: No active pulmonary disease. PLEURA: No significant pleural effusion identified, no pneumothorax apparent. CARDIOVASCULAR: Normal. OSSEOUS STRUCTURES: Unchanged. VISUALIZED UPPER ABDOMEN: Normal. OTHER FINDINGS: None. IMPRESSION: No active disease.
[2017-10-03] MEDS ORDERED: Multivitamin (MVI) 10 ML, Thiamine 100 MG, Folic Acid 1 MG in Sodium Chloride 0.9% 1,00... IV ONE (11:37)
[2017-10-03] MEDS ORDERED: Albuterol HFA 90 mcg/actuation (8 g) IH PRN (12:02)
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
--- NOTE | 2017-10-03 18:47 | CARD ---
APPROVED REPORT EKG Measurement Heart [id number] <Conclusion> Sinus tachycardia Left axis deviation Pulmonary disease pattern Abnormal ECG
[2017-10-03 18:53] LABS: BLOOD UREA NITROGEN 6 mg/dl (9-20); GFR AFRICAN-AMERICAN > 60; GFR NON-AFRICAN AMERICAN > 60
[2017-10-03] MEDS ORDERED: KCL 40MEQ/NS 1L 1,000 ML IV SCH (20:30)
[2017-10-03] MEDS: Insulin Regular 100 units/ml SC SCH (23:00)
[2017-10-04 05:46] LABS: HEMOGLOBIN 11.4 g/dL (12.0-18.0); MEAN CELL VOLUME 97.7 fl (80.0-94.0); MEAN CORPUSCULAR HEMOGLOBIN 33.9 pg (27.0-31.0); MEAN CORPUSCULAR HGB CONC 34.7 g/dL (33.0-37.0); RBC 3.36 Mil/uL (4.40-5.90); RED CELL DISTRIBUTION WIDTH 15.4 % (11.5-14.5); WHITE BLOOD COUNT 4.1 K/uL (4.8-10.8)
[2017-10-04 06:09] LABS: BLOOD UREA NITROGEN 3 mg/dl (9-20)
[2017-10-04 06:10] LABS: ALB/GLOB RATIO 1.1 (1.0-2.1); ALBUMIN 2.9 g/dL (3.5-5.0); ALT/SGPT 439 U/L (21-72); AST/SGOT 460 U/L (17-59); BILIRUBIN,DIRECT 2.2 mg/ml (0.0-0.4); CALCIUM 7.9 mg/dL (8.4-10.2); GFR AFRICAN-AMERICAN > 60; GFR NON-AFRICAN AMERICAN > 60; LIPASE 499 U/L (23-300)
[2017-10-04] MEDS: Insulin Regular 100 units/ml SC SCH ×4 (06:52→22:56)
--- NOTE | 2017-10-04 08:19 | CP.PCM.PN ---
Subjective - Date & Time of Evaluation Date of Evaluation: 10/04/17 Time of Evaluation: 08:40 - Subjective Subjective: Pt seen and examined at bedside this morning. Pt reports epigastric abdominal pain is improving. Reports hand tremor and chills. Pt is receiving ativan 1 mg q4h for withdrawal symptoms. Had normal BM this morning. Denies nausea, vomiting , constipation or fever. Denies chest pain, dyspnea, headache or dizziness. Objective - Vital Signs/Intake and Output Vital Signs (last 24 hours): Temp Pulse Resp BP Pulse Ox 97.9 F 85 18 159/90 H 99 10/04/17 08:02 10/04/17 08:02 10/04/17 08:02 10/04/17 08:02 10/04/17 08:02 - Medications Medications: Current Medications Albuterol (Ventolin Hfa 90 Mcg/Actuation (8 G)) 1 puff IH Q4 PRN PRN Reason: Wheezing Folic Acid (Folic Acid) 1 mg PO DAILY [facility] Home Med (Lipase/Protease/Amylase [Creon Dr 3,000 Units Capsule]) 1 each PO AC [facility] Hydrochlorothiazide (Microzide) 12.5 mg PO DAILY [facility] Insulin Human Regular (Humulin R) 0 units SC ACHS [facility] PRN Reason: Protocol Last Admin: 10/04/17 06:52 Dose: Not Given Lorazepam (Ativan) 1 mg IVP Q4 [facility] Last Admin: 10/04/17 05:11 Dose: 1 mg Lorazepam (Ativan) 1 mg IVP Q4 PRN PRN Reason: Symptoms of alcohol withdrawl Multivitamins/Minerals (Therapeutic-M Tab) 1 tab PO DAILY [facility] Ondansetron HCl (Zofran Inj) 4 mg IVP Q6 PRN PRN Reason: Nausea/Vomiting Pantoprazole Sodium (Protonix Inj) 40 mg IVP DAILY [facility] Thiamine HCl (Vitamin B1 Tab) 100 mg PO DAILY [facility] - Labs Labs: 10/04/17 04:20 10/04/17 04:20 PT 12.9 Seconds (9.8-13.1) 10/03/17 08:22 INR 1.2 (0.9-1.2) 10/03/17 08:22 APTT 29.3 Seconds (25.6-37.1) 10/03/17 08:22 - Constitutional Appears: No Acute Distress, Unkempt - Head Exam Head Exam: NORMAL INSPECTION - Neck Exam Neck Exam: Normal Inspection - Respiratory Exam Respiratory Exam: Clear to Ausculation Bilateral. absent: Rales, Rhonchi, Wheezes - Cardiovascular Exam Cardiovascular Exam: REGULAR RHYTHM, RRR, +S1, +S2 - GI/Abdominal Exam GI & Abdominal Exam: Soft, Normal Bowel Sounds Additional comments: Mild epigastric tenderness. No rebound tenderness or guarding. - Neurological Exam Neurological Exam: Alert, Awake, Oriented x3 Additional comments: B/L mild fine hand tremor. - Psychiatric Exam Psychiatric exam: Normal Affect, Normal Mood Assessment and Plan - Assessment and Plan (Free Text) Assessment: Assessment: 57 yo male pmhx chronic alcohol use disorder, HTN, DMII, depression and asthma admitted for alcohol withdrawal and abdominal pain. Plan: Alcohol dependence with withdrawal syndrome: -BAL:34 -Continue NS 0.9% @126 mls/hr -Continue ativan 1mg ivp q4h prn -Continue thiamine 100mg PO daily -Continue folic acid 1mg PO daily -Continue multivitamin daily Epigastric abdominal pain -improving -Lipase 292 yesterday -Lipase 499 today -Abdominal US on 10/04/17 Impression: Prominent hepatic steatosis suggested, concordant with prior abdomen and pelvis CT exam on 10/01/17. However, the pancreas is completely obscured by overlying bowel gas with remainder the abdomen also examination revealing no significant pathology sonographically. -Continue with Pantoprazole 40 mg IVP. Hypokalemia: -3.1 this morning -S/P KCl 40 meq last night -Start KCl 20 meq -repeat BMP DMII: -last A1c 5.4 on 08/31/17, prior was 6.5 on 06/08/17 -hold on metformin for now HTN Resume home medication -start HCTZ 12.5mg PO daily Elevated LFTs AST 715, ALT 557, ALP 382 on 10/03/17 AST 460, ALT 439, ALP [address] of abd/pelvis on 09/30/17 showed fatty liver Diet -Full liquid DVT Prophylaxis: -SCD's now Code Status: -full code
[2017-10-04] MEDS: Multivitamin With Minerals Tab PO SCH (09:51)
[2017-10-04] MEDS ORDERED: Amylase/Lipase/Protease 5,000 Units ECC PO SCH (11:30)
[2017-10-04] MEDS: Amylase/Lipase/Protease 5,000 Units ECC PO SCH ×2 (12:45→17:41)
--- NOTE | 2017-10-04 12:49 | US ---
HISTORY: hx alcohol abuse; acute vs chronic pancreatitis COMPARISON: Abdomen pelvis CT with contrast 09/22/2017. TECHNIQUE: Sonographic evaluation of the abdomen. FINDINGS: LIVER: Measures 17.2 cm. Markedly increased echogenicity of the liver parenchyma suggesting a diffuse hepatic steatosis. No mass. No intrahepatic bile duct dilatation. GALLBLADDER: Unremarkable. No gallstones. COMMON BILE DUCT: Measures 4.4 mm. No stones. No dilatation. PANCREAS: Completely obscured by overlying bowel gas. RIGHT KIDNEY: Measures 11.1cm. Normal echogenicity. No calculus, mass, or hydronephrosis. LEFT KIDNEY: Measures 11.3cm. Normal echogenicity though malrotated. No calculus, mass, or hydronephrosis. SPLEEN: Normal in size and contour, measuring 11.5 cm. No mass. AORTA: No aneurysmal dilatation. IVC: Unremarkable. OTHER FINDINGS: None. IMPRESSION: Prominent hepatic steatosis suggested, concordant with prior abdomen and pelvis CT exam 10/01/2017. However, the pancreas is completely obscured by overlying bowel gas with remainder the abdomen also examination revealing no significant pathology sonographically.
[2017-10-04] MEDS ORDERED: PROTEASE PO SCH (16:30)
[2017-10-04] MEDS ORDERED: LIPASE PO SCH (16:30)
[2017-10-04] MEDS ORDERED: AMYLASE PO SCH (16:30)
[2017-10-04] MEDS: Potassium Chl 20 mEq in NS 1,000 ML IV SCH ×2 (17:40→17:43)
--- NOTE | 2017-10-04 17:44 | CT ---
PROCEDURE: CT HEAD WITHOUT CONTRAST. HISTORY: r/o seizure disorder COMPARISON: 05/22/2017 TECHNIQUE: Axial computed tomography images were obtained through the head/brain without intravenous contrast. Radiation dose: Total exam DLP = 809.23 mGy-cm. This CT exam was performed using one or more of the following dose reduction techniques: Automated exposure control, adjustment of the mA and/or kV according to patient size, and/or use of iterative reconstruction technique. FINDINGS: HEMORRHAGE: No intracranial hemorrhage. BRAIN: No mass effect or edema. Mild atrophy slightly greater than expected for patient age. Mild periventricular white matter lucency consistent with chronic microvascular ischemic change. Very small old right thalamic lacunar infarct. No evidence of acute infarct. VENTRICLES: Unremarkable. No hydrocephalus. CALVARIUM: Unremarkable. PARANASAL SINUSES: Unremarkable as visualized. No significant inflammatory changes. MASTOID AIR CELLS: Unremarkable as visualized. No inflammatory changes. OTHER FINDINGS: None. IMPRESSION: No intracranial mass, hemorrhage or evidence of acute infarct. Atrophy slightly greater than expected for patient age. Mild chronic white matter ischemic change.
[2017-10-05] MEDS: Potassium Chl 20 mEq in NS 1,000 ML IV SCH ×2 (01:00→04:55)
[2017-10-05 06:12] LABS: HEMOGLOBIN 11.5 g/dL (12.0-18.0); MEAN CELL VOLUME 98.2 fl (80.0-94.0); MEAN CORPUSCULAR HEMOGLOBIN 33.5 pg (27.0-31.0); MEAN CORPUSCULAR HGB CONC 34.1 g/dL (33.0-37.0); RBC 3.42 Mil/uL (4.40-5.90); RED CELL DISTRIBUTION WIDTH 15.5 % (11.5-14.5); WHITE BLOOD COUNT 3.7 K/uL (4.8-10.8)
[2017-10-05 06:31] LABS: ALB/GLOB RATIO 1.2 (1.0-2.1); ALBUMIN 3.1 g/dL (3.5-5.0); ALT/SGPT 351 U/L (21-72); AST/SGOT 310 U/L (17-59); BLOOD UREA NITROGEN < 2 mg/dl (9-20); CALCIUM 8.2 mg/dL (8.4-10.2); GFR AFRICAN-AMERICAN > 60; GFR NON-AFRICAN AMERICAN > 60
[2017-10-05] MEDS: Insulin Regular 100 units/ml SC SCH ×2 (06:52→12:34)
[2017-10-05] MEDS: Amylase/Lipase/Protease 5,000 Units ECC PO SCH ×2 (10:18→13:59)
[2017-10-05] MEDS: Multivitamin With Minerals Tab PO SCH (10:20)
--- NOTE | 2017-10-05 11:22 | CP.PCM.PN ---
Subjective - Date & Time of Evaluation Date of Evaluation: 10/05/17 Time of Evaluation: 07:30 - Subjective Subjective: Pt seen and examined at bedside this morning. Pt reports abdominal pain has significantly resolved. Denies headache, dizziness or shakiness. Pt had BM yesterday. Pt is tolerating diet. Denies any diarrhea. Denies nausea, vomiting, constipation or fever. Denies chest pain, dyspnea, headache or dizziness. Objective - Vital Signs/Intake and Output Vital Signs (last 24 hours): Temp Pulse Resp BP Pulse Ox 98.3 F 82 18 143/83 99 10/05/17 08:07 10/05/17 08:07 10/05/17 08:07 10/05/17 08:07 10/05/17 08:07 - Medications Medications: Current Medications Albuterol (Ventolin Hfa 90 Mcg/Actuation (8 G)) 1 puff IH Q4 PRN PRN Reason: Wheezing Amylase (Pancrease 50969 U-5000 [id number] U) 1 unit PO TID [facility] Last Admin: 10/05/17 10:18 Dose: 1 unit Folic Acid (Folic Acid) 1 mg PO DAILY [facility] Last Admin: 10/05/17 10:19 Dose: 1 mg Hydrochlorothiazide (Microzide) 12.5 mg PO DAILY [facility] Last Admin: 10/05/17 10:19 Dose: 12.5 mg Insulin Human Regular (Humulin R) 0 units SC ACHS [facility] PRN Reason: Protocol Last Admin: 10/05/17 06:52 Dose: Not Given Lorazepam (Ativan) 1 mg IVP Q4 PRN PRN Reason: Symptoms of alcohol withdrawl Multivitamins/Minerals (Therapeutic-M Tab) 1 tab PO DAILY [facility] Last Admin: 10/05/17 10:20 Dose: 1 tab Ondansetron HCl (Zofran Inj) 4 mg IVP Q6 PRN PRN Reason: Nausea/Vomiting Pantoprazole Sodium (Protonix Inj) 40 mg IVP DAILY [facility] Last Admin: 10/05/17 10:17 Dose: 40 mg Thiamine HCl (Vitamin B1 Tab) 100 mg PO DAILY [facility] Last Admin: 10/05/17 10:19 Dose: 100 mg - Labs Labs: 10/05/17 05:00 10/05/17 05:00 PT 12.9 Seconds (9.8-13.1) 10/03/17 08:22 INR 1.2 (0.9-1.2) 10/03/17 08:22 APTT 29.3 Seconds (25.6-37.1) 10/03/17 08:22 - Constitutional Appears: No Acute Distress, Unkempt - Head Exam Head Exam: NORMAL INSPECTION - ENT Exam ENT Exam: Mucous Membranes Moist - Respiratory Exam Respiratory Exam: Clear to Ausculation Bilateral. absent: Rales, Rhonchi, Wheezes - Cardiovascular Exam Cardiovascular Exam: REGULAR RHYTHM, +S1, +S2 - GI/Abdominal Exam GI & Abdominal Exam: Soft, Normal Bowel Sounds. absent: Tenderness - Extremities Exam Extremities Exam: absent: Calf Tenderness - Neurological Exam Neurological Exam: Alert, Awake, Oriented x3 - Psychiatric Exam Psychiatric exam: Anxious, Normal Mood Assessment and Plan - Assessment and Plan (Free Text) Assessment: Assessment: 57 yo male pmhx chronic alcohol use disorder, HTN, DMII, depression and asthma admitted for alcohol withdrawal and repeat seizures. Plan: Hx multiple seizures: -Neuro consulted -Brain MRI w/ contrast -EEG ordered Alcohol dependence with withdrawal syndrome: -BAL:34 -Continue NS 0.9% @126 mls/hr -Continue ativan 1mg ivp q4h prn -Continue thiamine 100mg PO daily -Continue folic acid 1mg PO daily -Continue multivitamin daily Epigastric abdominal pain -improving -Lipase 292 yesterday -Lipase 499 today -Abdominal US on 10/04/17 Impression: Prominent hepatic steatosis suggested, concordant with prior abdomen and pelvis CT exam on 10/01/17. However, the pancreas is completely obscured by overlying bowel gas with remainder the abdomen also examination revealing no significant pathology sonographically. -Continue with Pantoprazole 40 mg IVP. Hypokalemia: -3.4 this morning -repeat BMP DMII: -last A1c 5.4 on 08/31/17, prior was 6.5 on 06/08/17 -hold on metformin for now HTN Resume home medication -start HCTZ 12.5mg PO daily Elevated LFTs AST 715, ALT 557, ALP 382 on 10/03/17 AST 460, ALT 439, ALP 310 on 10/04/17 CT of abd/pelvis on 09/30/17 showed fatty liver Diet -Full liquid DVT Prophylaxis: -SCD's now Code Status: -full code
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
[2017-10-05 15:54] VITALS: BP 141/89; PULSE 116; RESP 17; TEMP 97.6; O2SAT 99
--- NOTE | 2017-10-05 18:57 | CP.PCM.DIS ---
Provider - Provider Date of Admission: 10/03/17 09:35 Attending physician: Cande Palacios MD Time Spent in preparation of Discharge (in minutes): 30 Hospital Course - Lab Results Lab Results: Most Recent Lab Values WBC 3.7 K/uL (4.8-10.8) L 10/05/17 05:00 RBC 3.42 Mil/uL (4.40-5.90) L 10/05/17 05:00 Hgb 11.5 g/dL (12.0-18.0) L 10/05/17 05:00 Hct 33.6 % (35.0-51.0) L 10/05/17 05:00 MCV 98.2 fl (80.0-94.0) H 10/05/17 05:00 MCH 33.5 pg (27.0-31.0) H 10/05/17 05:00 MCHC 34.1 g/dL (33.0-37.0) 10/05/17 05:00 RDW 15.5 % (11.5-14.5) H 10/05/17 05:00 Plt Count 134 K/uL (130-400) 10/05/17 05:00 MPV 8.1 fl (7.2-11.7) 10/03/17 08:22 Neut % (Auto) 82.7 % (50.0-75.0) H 10/03/17 08:22 Lymph % (Auto) 13.5 % (20.0-40.0) L 10/03/17 08:22 [place] % (Auto) 3.2 % (0.0-10.0) 10/03/17 08:22 Eos % (Auto) 0.0 % (0.0-4.0) 10/03/17 08:22 Baso % (Auto) 0.6 % (0.0-2.0) 10/03/17 08:22 Neut # (Auto) 7.1 K/uL (1.8-7.0) H 10/03/17 08:22 Lymph # (Auto) 1.1 K/uL (1.0-4.3) 10/03/17 08:22 [place] # (Auto) 0.3 K/uL (0.0-0.8) 05/01/18 08:22 Eos # (Auto) 0.0 K/uL (0.0-0.7) 10/03/17 08:22 Baso # (Auto) 0.1 K/uL (0.0-0.2) 10/03/17 08:22 PT 12.9 Seconds (9.8-13.1) 10/03/17 08:22 INR 1.2 (0.9-1.2) 10/03/17 08:22 APTT 29.3 Seconds (25.6-37.1) 10/03/17 08:22 Sodium 132 mmol/l (132-148) 10/05/17 05:00 Potassium 3.4 MMOL/L (3.6-5.0) L 10/05/17 05:00 Chloride 98 mmol/L (98-107) 10/05/17 05:00 Carbon Dioxide 23 mmol/L (22-30) 10/05/17 05:00 Anion Gap 14 (10-20) 10/05/17 05:00 BUN < 2 mg/dl (9-20) L 10/05/17 05:00 Creatinine 0.6 mg/dl (0.8-1.5) L 10/05/17 05:00 Est GFR ( Amer) > 60 10/05/17 05:00 Est GFR (Non-Af Amer) > 60 10/05/17 05:00 POC Glucose (mg/dL) 121 mg/dL (65-110) H 10/05/17 11:16 Random Glucose 170 mg/dL (75-110) H 10/05/17 05:00 Calcium 8.2 mg/dL (8.4-10.2) L 10/05/17 05:00 Total Bilirubin 1.8 mg/dl (0.2-1.3) H 10/05/17 05:00 Direct Bilirubin 2.2 mg/ml (0.0-0.4) H 10/04/17 04:20 AST 310 U/L (17-59) H D 10/05/17 05:00 ALT 351 U/L (21-72) H D 10/05/17 05:00 Alkaline Phosphatase 297 U/L (38-126) H 10/05/17 05:00 Total Creatine Kinase 102 U/L (55-170) 10/03/17 08:22 Troponin I 0.0250 ng/mL (0.00-0.120) 10/03/17 12:55 Total Protein 5.7 G/DL (6.3-8.2) L 10/05/17 05:00 Albumin 3.1 g/dL (3.5-5.0) L 10/05/17 05:00 Globulin 2.6 gm/dL (2.2-3.9) 10/05/17 05:00 Albumin/Globulin Ratio 1.2 (1.0-2.1) 10/05/17 05:00 Lipase 499 U/L (23-300) H 10/04/17 04:20 Alcohol, Quantitative 34 mg/dl (0-10) H 10/03/17 08:22 - Hospital Course Hospital Course: 57 yo male with PMHx of chronic alcohol use disorder x 40 yrs, DMII, HTN, and asthma admitted to [facility] 10/03/17 for alcohol withdrawal and abdominal pain. Pt had witnessed seizures in the ED. Pt's withdrawal symptoms were stabilized with Ativan. EKG, CXR and head CT show no acute pathology. EEG was done and it was WNL. MRI head was ordered but not done due to patient wanted to get discharged and go home. Pt was discharged home with all his home medications EXCEPT hydrochlorothiazide dose was increased from 12.5mg daily to 25mg daily. Pt has an appointment with Dr. Banda on October 12 at 3 pm. Home meds: Albuterol inhaler Folic acid 1 mg po daily Gabapentin 100 mg po TID HCTZ 25 mg po daily Dulera BID Singulair 10 mg po daily Creon(amylase/protease/lipase) po with meals Metformin 850 mg po daily multivitamin po daily thiamin 100 mg po daily Discharge Exam - Head Exam Head Exam: NORMAL INSPECTION - Additional Findings Additional findings: - Constitutional Appears: No Acute Distress, Unkempt - Head Exam Head Exam: NORMAL INSPECTION - ENT Exam ENT Exam: Mucous Membranes Moist - Respiratory Exam Respiratory Exam: Clear to Ausculation Bilateral. absent: Rales, Rhonchi, Wheezes - Cardiovascular Exam Cardiovascular Exam: REGULAR RHYTHM, +S1, +S2 - GI/Abdominal Exam GI & Abdominal Exam: Soft, Normal Bowel Sounds. absent: Tenderness - Extremities Exam Extremities Exam: absent: Calf Tenderness - Neurological Exam Neurological Exam: Alert, Awake, Oriented x3 - Psychiatric Exam Psychiatric exam: Anxious, Normal Mood Discharge Plan - Discharge Medications Prescriptions: hydroCHLOROthiazide [Hydrodiuril] 25 mg PO DAILY #30 tab - Follow Up Plan Condition: FAIR Disposition: HOME/ ROUTINE Instructions: Seizures, Adult (DC), Alcohol Withdrawal (DC), Acute Abdominal Pain (DC), Acute Abdominal Pain (GEN) Additional Instructions: Refrain from consuming alcohol. Continue all home medications -EXCEPT hydrochlorothiazide dose was increased from 12.5mg daily to 25mg daily. Appointment scheduled at [facility] on October [address] Banda. ER precautions discussed. Referrals: [facility] [place] [Outside]
== END 2017-10-05 16:10 | disposition home or self-care (01) ==
LOC: H.ER 07:29 → H.ERHOLD 09:35 → INTOOBSV 09:35 → H.TEL 13:46
PROVIDERS: ADMIT Family Medicine Geriatric Medicine; ATTEND Family Medicine Geriatric Medicine
DX: F10.231 Alcohol dependence with withdrawal delirium (principal); E11.9 Type 2 diabetes mellitus without complications; I10 Essential (primary) hypertension; E78.00 Pure hypercholesterolemia, unspecified; G89.29 Other chronic pain; F17.210 Nicotine dependence, cigarettes, uncomplicated; K21.9 Gastro-esophageal reflux disease without esophagitis; K29.70 Gastritis, unspecified, without bleeding; J44.9 Chronic obstructive pulmonary disease, unspecified; F31.9 Bipolar disorder, unspecified; F20.9 Schizophrenia, unspecified; F41.9 Anxiety disorder, unspecified; E87.6 Hypokalemia; R19.7 Diarrhea, unspecified; R10.13 Epigastric pain; R79.89 Other specified abnormal findings of blood chemistry; E87.1 Hypo-osmolality and hyponatremia; Y90.1 Blood alcohol level of 20-39 mg/100 ml; F10.239 Alcohol dependence with withdrawal, unspecified; G40.89 Other seizures
CPT/HCPCS: 36415; 70450; 71045; 76700; 80048; 80053; 80076; 80320; 82550; 82948; 83690; 84484; 85025; 85027; 85610; 85730; 93005; 95816; 96361; 96374; 96375; 96376; 97161; 99283; C9113; G0378; G8978; G8979; G8980; J1953; J2060; J3411; J7040

== ENCOUNTER 2017-11-15 12:44 | Emergency (ER) | payer OTHER ==
[2017-11-15 12:44] VITALS: BMI 29.9
[2017-11-15 12:55] VITALS: BP 128/79; PULSE 76; RESP 20; TEMP 98; O2SAT 98
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
== END 2017-11-15 15:30 | disposition home or self-care (01) ==
LOC: H.ER 12:44
DX: L25.8 Unspecified contact dermatitis due to other agents (principal); E11.9 Type 2 diabetes mellitus without complications; E78.00 Pure hypercholesterolemia, unspecified; F31.9 Bipolar disorder, unspecified; L25.9 Unspecified contact dermatitis, unspecified cause; Z79.84 Long term (current) use of oral hypoglycemic drugs
CPT/HCPCS: 96372; 99283; J1100

== ENCOUNTER 2018-01-16 06:21 | Emergency (ER) | payer OTHER ==
[2018-01-16 06:22] VITALS: BMI 29.9
[2018-01-16] MEDS ORDERED: Albuterol-Ipratrop 3 mg / 0.5 (3 ml) UD IH STA (07:33)
[2018-01-16] MEDS ORDERED: Sodium Chloride 0.9% 1,000 ML IV STA (07:33)
--- NOTE | 2018-01-16 07:37 | ED PDOC ---
HPI: Abdomen Time Seen by Provider: 01/16/18 07:00 Chief Complaint (Nursing): Psychiatric Evaluation History Per: Patient Onset/Duration Of Symptoms: Unknown Current Symptoms Are (Timing): Still Present Severity: Moderate Location Of Pain/Discomfort: Epigastric Quality Of Discomfort: Sharp Associated Symptoms: denies: Fever, Nausea, Vomiting, Diarrhea Exacerbating Factors: None Alleviating Factors: None Additional Complaint(s): Sharp epigastric abd pain unknown duration. No vomiting or diarrhea. Denies fever. Denies bloody stool. Past Medical History Vital Signs: Last Vital Signs Temp 98.5 F 01/16/18 12:18 Pulse 72 01/16/18 12:18 Resp 19 01/16/18 12:18 BP 168/92 H 01/16/18 12:18 Pulse Ox 99 01/16/18 12:18 - Medical History PMH: Anemia, Anxiety, Asthma, Back Problems, Bipolar Disorder, COPD, Depression , Diabetes, Gastritis, GERD, Hypercholesterolemia, Pancreatitis, Schizophrenia, Seizures (secondary to ETOH withdrawal), Chronic Pain (low back pain ) Denies: Chronic Kidney Disease, Sexually Transmitted Disease - Surgical History Surgical History: Back Surgery - Family History Family History: States: Unknown Family Hx, Diabetes - Immunization History Hx Tetanus Toxoid Vaccination: Yes (As per patient, TDaP uptodate ( about 3 years ago)) Hx Influenza Vaccination: No Hx Pneumococcal Vaccination: No - Home Medications Home Medications: Ambulatory Orders Medication Instructions Recorded Lipase/Protease/Amylase [Saulo Greco 1 each PO AC #30 capsule. 08/17/17 3,000 Units Capsule] Albuterol HFA [Ventolin HFA 90 1 puff IH Q4 PRN #1 inh 09/20/17 mcg/actuation (8 g)] Folic Acid 1 mg PO DAILY #30 tab 09/20/17 Gabapentin [Neurontin] 100 mg PO TID 30 Days #90 cap 09/20/17 Mometasone/Formoterol [Dulera 100 13 gm IH BID #1 hfa.aer.ad 09/20/17 Mcg/5 Mcg Inhaler] Montelukast [Singulair] 10 mg PO HS #30 tab 09/20/17 Multimineral/Multivitamin 1 tab PO DAILY #30 tab 09/20/17 [Therapeutic-M Tab] Thiamine [Vitamin B1 Tab] 100 mg PO DAILY 30 Days #30 tab 09/20/17 metFORMIN [glucOPHAGE] 850 mg PO DAILY #90 tab 09/20/17 metroNIDAZOLE [Flagyl] 500 mg PO Q8 #12 tab 09/20/17 hydroCHLOROthiazide [Hydrodiuril] 25 mg PO DAILY #30 tab 10/05/17 Albuterol HFA [Ventolin HFA 90 2 puff IH Q4H #1 puff 01/16/18 mcg/actuation (8 g)] Pantoprazole Sodium [Protonix] 40 mg PO DAILY #30 tablet. 01/16/18 - Allergies Allergies/Adverse Reactions: Allergies Allergy/AdvReac Type Severity Reaction Status Date / Time No Known Allergies Allergy Verified 01/16/18 06:31 Review of Systems ROS Statement: Except As Marked, All Systems Reviewed And Found Negative Gastrointestinal: Positive for: Abdominal Pain Physical Exam - Reviewed Nursing Documentation Reviewed: Yes Vital Signs Reviewed: Yes - Physical Exam Appears: Positive for: Non-toxic, No Acute Distress Head Exam: Positive for: ATRAUMATIC, NORMAL INSPECTION, NORMOCEPHALIC Skin: Positive for: Normal Color, Warm, DRY Eye Exam: Positive for: EOMI, Normal appearance, PERRL ENT: Positive for: Normal ENT Inspection Neck: Positive for: Normal, Painless ROM Cardiovascular/Chest: Positive for: Regular Rate, Rhythm Respiratory: Positive for: Rhonchi, Wheezing. Negative for: Respiratory Distress Gastrointestinal/Abdominal: Positive for: Soft, Tenderness (Epigastric). Negative for: Guarding, Rebound Back: Positive for: Normal Inspection. Negative for: L CVA Tenderness, R CVA Tenderness Extremity: Positive for: Normal ROM Neurologic/Psych: Positive for: Alert, Oriented - Laboratory Results Result Diagrams: 01/16/18 08:00 01/16/18 08:00 - ECG O2 Sat by Pulse Oximetry: 96 - Progress Re-evaluation Time: 12:50 Condition: Improved (Hungry, tolerating PO) Disposition - Clinical Impression Clinical Impression: Gastritis, Asthma - Patient ED Disposition Is Patient to be Admitted: No - Disposition Referrals: [facility] [Outside] Disposition: Routine/Home Disposition Time: 12:51 Condition: FAIR Prescriptions: Albuterol HFA [Ventolin HFA 90 mcg/actuation (8 g)] 2 puff IH Q4H #1 puff Pantoprazole Sodium [Protonix] 40 mg PO DAILY #30 tablet. Instructions: Gastritis, Asthma in Adults Forms: [employer] (American)
[2018-01-16 08:18] LABS: BASO # 0.1 K/uL (0.0-0.2); BASO % 0.9 % (0.0-2.0); EOS % 0.3 % (0.0-4.0); HEMOGLOBIN 14.5 g/dL (12.0-18.0); LYMPH # 4.2 K/uL (1.0-4.3); LYMPH % 71.3 % (20.0-40.0); MEAN CORPUSCULAR HEMOGLOBIN 31.1 pg (27.0-31.0); MEAN CORPUSCULAR HGB CONC 34.5 g/dL (33.0-37.0); MEAN PLATELET VOLUME 8.7 fl (7.2-11.7); MONO # 0.2 K/uL (0.0-0.8); MONO % 2.9 % (0.0-10.0); NEUT # 1.5 K/uL (1.8-7.0); NEUT % 24.6 % (50.0-75.0); NRBC % 0.3 % (0.0-0.0); PLATELET COUNT 163 K/uL (130-400); RBC 4.66 Mil/uL (4.40-5.90); RED CELL DISTRIBUTION WIDTH 17.5 % (11.5-14.5); WHITE BLOOD COUNT 5.9 K/uL (4.8-10.8)
[2018-01-16 08:20] LABS: CALCIUM 8.7 mg/dL (8.4-10.2); GFR AFRICAN-AMERICAN > 60; GFR NON-AFRICAN AMERICAN > 60
[2018-01-16 08:30] LABS: ALB/GLOB RATIO 1.1 (1.0-2.1); ALT/SGPT 218 U/L (21-72); AST/SGOT 412 U/L (17-59); BLOOD UREA NITROGEN 10 mg/dl (9-20)
--- NOTE | 2018-01-16 08:44 | RAD ---
Date of service: 01/16/2018 HISTORY: cough COMPARISON: 10/03/2017. FINDINGS: LUNGS: The lungs are well inflated and clear. PLEURA: No significant pleural effusion identified, no pneumothorax apparent. CARDIOVASCULAR: Normal. OSSEOUS STRUCTURES: No significant abnormalities. VISUALIZED UPPER ABDOMEN: Normal. OTHER FINDINGS: None. IMPRESSION: No active pulmonary disease.
[2018-01-16 10:01] LABS: LIPASE 223 U/L (23-300)
[2018-01-16 11:51] LABS: BANDS 2 % (0-2); LYMPHOCYTE 41 % (20-50); MONOCYTE 3 % (0-10); NEUTROPHIL 54 % (42-75); PLATELET ESTIMATE NORMAL (NORMAL); TOTAL CELLS COUNTED 100
[2018-01-16 11:52] LABS: ANISOCYTOSIS SLIGHT
[2018-01-16 12:19] VITALS: BP 168/92; PULSE 72; RESP 19; TEMP 98.5
[2018-01-16 12:52] VITALS: O2SAT 96
== END 2018-01-16 13:03 | disposition home or self-care (01) ==
LOC: H.ER 06:21
DX: K29.70 Gastritis, unspecified, without bleeding (principal); J45.909 Unspecified asthma, uncomplicated; E11.9 Type 2 diabetes mellitus without complications; Z86.59 Personal history of other mental and behavioral disorders; J44.9 Chronic obstructive pulmonary disease, unspecified; Z79.84 Long term (current) use of oral hypoglycemic drugs
CPT/HCPCS: 71045; 80053; 82948; 83690; 85025; 96374; 99285; J7030

== ENCOUNTER 2018-03-24 12:04 | Emergency (ER) | payer OTHER ==
[2018-03-24 12:05] VITALS: BMI 29.9
[2018-03-24] MEDS ORDERED: Albuterol-Ipratrop 3 mg / 0.5 (3 ml) UD IH STA (12:34)
--- NOTE | 2018-03-24 12:35 | ED PDOC ---
HPI: Psych/Substance Abuse Time Seen by Provider: 03/24/18 12:16 Chief Complaint (Nursing): Psychiatric Evaluation Chief Complaint (Provider): psychiatric evaluation History Per: Patient History/Exam Limitations: no limitations Onset/Duration Of Symptoms: Days Current Symptoms Are (Timing): Still Present Associated Symptoms: Other (hallucinations). denies: Suicidal Thoughts, Suicidal Plan Additional Complaint(s): Ryley Torres is a 58 year old male, with a past medical history of asthma, COPD, diabetes, bipolar disorder and schizophrenia, who presents to the emergency department complaining of hearing voices. Patient reports he has not taken his psychiatric medications for x6 months. He admits having alcohol today. Patient is currently not on any medications. He denies any suicidal or homicidal ideations, cough, congestion, fever, chills, chest pain, shortness of breath, nausea, vomit, diarrhea, abdominal pain, headache, dizziness, weakness, numbness or tingling. No further medical complaints. PMD: None provided. Past Medical History Reviewed: Historical Data, Nursing Documentation, Vital Signs - Medical History PMH: Anemia, Anxiety, Asthma, Back Problems, Bipolar Disorder, COPD, Depression, Diabetes, Gastritis, GERD, Hypercholesterolemia, Pancreatitis, Schizophrenia, Seizures (secondary to ETOH withdrawal), Chronic Pain (low back pain ) Denies: Chronic Kidney Disease, Sexually Transmitted Disease - Surgical History Surgical History: Back Surgery - Family History Family History: States: Unknown Family Hx, Diabetes - Social History Current smoker - smoking cessation education provided: Yes (Light smoker <10 cigarettes daily) Alcohol: Social Drugs: Denies - Immunization History Hx Tetanus Toxoid Vaccination: Yes (As per patient, TDaP uptodate ( about 3 years ago)) Hx Influenza Vaccination: No Hx Pneumococcal Vaccination: No - Home Medications Home Medications: Ambulatory Orders Medication Instructions Recorded Lipase/Protease/Amylase [Saulo Greco 1 each PO AC #30 capsule. 08/17/17 3,000 Units Capsule] Albuterol HFA [Ventolin HFA 90 1 puff IH Q4 PRN #1 inh 09/20/17 mcg/actuation (8 g)] Folic Acid 1 mg PO DAILY #30 tab 09/20/17 Gabapentin [Neurontin] 100 mg PO TID 30 Days #90 cap 09/20/17 Mometasone/Formoterol [Dulera 100 13 gm IH BID #1 hfa.aer.ad 09/20/17 Mcg/5 Mcg Inhaler] Montelukast [Singulair] 10 mg PO HS #30 tab 09/20/17 Multimineral/Multivitamin 1 tab PO DAILY #30 tab 09/20/17 [Therapeutic-M Tab] Thiamine [Vitamin B1 Tab] 100 mg PO DAILY 30 Days #30 tab 09/20/17 metFORMIN [glucOPHAGE] 850 mg PO DAILY #90 tab 09/20/17 metroNIDAZOLE [Flagyl] 500 mg PO Q8 #12 tab 09/20/17 hydroCHLOROthiazide [Hydrodiuril] 25 mg PO DAILY #30 tab 10/05/17 Albuterol HFA [Ventolin HFA 90 2 puff IH Q4H #1 puff 01/16/18 mcg/actuation (8 g)] Pantoprazole Sodium [Protonix] 40 mg PO DAILY #30 tablet. 01/16/18 - Allergies Allergies/Adverse Reactions: Allergies Allergy/AdvReac Type Severity Reaction Status Date / Time No Known Allergies Allergy Verified 03/24/18 12:24 Review of Systems ROS Statement: Except As Marked, All Systems Reviewed And Found Negative Constitutional: Negative for: Fever, Chills ENT: Negative for: Nose Congestion Cardiovascular: Negative for: Chest Pain Respiratory: Negative for: Cough, Shortness of Breath Gastrointestinal: Negative for: Nausea, Vomiting, Abdominal Pain, Diarrhea Neurological: Negative for: Weakness, Numbness (tingling), Headache, Dizziness Psych: Positive for: Other (auditory hallucinations). Negative for: Suicidal ideation (or homicidal ideation) Physical Exam - Reviewed Nursing Documentation Reviewed: Yes Vital Signs Reviewed: Yes - Physical Exam Appears: Positive for: No Acute Distress Head Exam: Positive for: ATRAUMATIC, NORMAL INSPECTION, NORMOCEPHALIC Skin: Positive for: Normal Color, Warm, Dry Eye Exam: Positive for: Normal appearance, EOMI, PERRL ENT: Positive for: Normal ENT Inspection Neck: Positive for: Painless ROM, Supple Cardiovascular/Chest: Positive for: Regular Rate, Rhythm. Negative for: Murmur Respiratory: Positive for: Wheezing (mild expiratory bilaterally). Negative for: Respiratory Distress Gastrointestinal/Abdominal: Positive for: Normal Exam, Soft. Negative for: Tenderness, Guarding, Rebound Back: Positive for: Normal Inspection. Negative for: L CVA Tenderness, R CVA Tenderness, Vertebral Tenderness Extremity: Positive for: Normal ROM (upper and lower extremities), Other (No neurovascular deficits). Negative for: Deformity, Swelling Neurologic/Psych: Positive for: Alert, Oriented, Gait (steady). Negative for: Motor/Sensory Deficits - Laboratory Results Result Diagrams: 03/24/18 13:02 03/24/18 13:02 Interpretation Of Abn Labs: 334 etoh; pos opiates - ECG ECG: Positive for: Interpreted By Me, Viewed By Me ECG Rhythm: Positive for: Normal QRS, Normal ST Segment, Sinus Rhythm - Radiology X-Ray: Read By Radiologist X-Ray Interpretation: No Acute Disease - Progress ED Course And Treament: 1825: Stable. Crisis to see pt. Medically stable for eval. Given ativan earlier as pt. felt agitated. 1905: Dr. Barrera to fu on crisis. Medical Decision Making Medical Decision Making: Time: 12:16 Initial Impression: Auditory hallucinations, asthma exacerbation Initial Plan: --EKG --Alcohol serum --CMP --Drug screen, urine --Troponin I --Crisis evaluation --Urine dip --CBC w/ differential --Chest portable [RAD] --Duoneb 3 ml INH --Reevaluation CXR FINDINGS: LUNGS: No acute infiltrates. Vague nodular density seen in the right upper lobe overlying the right posterior 5th rib laterally that may represent confluence of shadow artifact. The possibility of a small parenchymal nodule not completely excluded. Follow-up nonemergent CT scan of the chest could be performed for further evaluation. PLEURA: No significant pleural effusion identified, no pneumothorax apparent. CARDIOVASCULAR: No aortic atherosclerotic calcification present Normal. OSSEOUS STRUCTURES: No significant abnormalities. VISUALIZED UPPER ABDOMEN: Normal. OTHER FINDINGS: None. IMPRESSION: No acute infiltrates. Vague nodular density seen in the right upper lobe overlying the right posterior 5th rib laterally that may represent confluence of shadow artifact. The possibility of a small parenchymal nodule not completely excluded. Follow-up nonemergent CT scan of the chest could be performed for further evaluation. . ----- Scribe Attestation: Documented by Rodolfo Parsons, acting as a scribe for Nilesh Eckert MD. Provider Scribe Attestation: All medical record entries made by the Scribe were at my direction and personally dictated by me. I have reviewed the chart and agree that the record accurately reflects my personal performance of the history, physical exam, medical decision making, and the department course for this patient. I have also personally directed, reviewed, and agree with the discharge instructions and disposition. Disposition - Clinical Impression Clinical Impression: Alcohol intoxication, Wheezes - Patient ED Disposition Is Patient to be Admitted: Transfer of Care - Disposition Disposition: Transfer of Care Disposition Time: 19:06 Condition: STABLE Forms: [employer] ([place] Zealander) Patient Signed Over To: Alejandro Barrera
[2018-03-24] MEDS ORDERED: Albuterol-Ipratrop 3 mg / 0.5 (3 ml) UD ONE (12:48)
[2018-03-24 13:49] LABS: ALB/GLOB RATIO 1.3 (1.0-2.1); ALBUMIN 4.5 g/dL (3.5-5.0); ALT/SGPT 121 U/L (21-72); AST/SGOT 150 U/L (17-59); BLOOD UREA NITROGEN 7 mg/dl (9-20); GFR NON-AFRICAN AMERICAN > 60
[2018-03-24 13:56] LABS: BASO # 0.1 K/uL (0.0-0.2); BASO % 1.1 % (0.0-2.0); EOS # 0.1 K/uL (0.0-0.7); EOS % 1.5 % (0.0-4.0); HEMOGLOBIN 15.2 g/dL (12.0-18.0); LYMPH # 4.1 K/uL (1.0-4.3); LYMPH % 57.7 % (20.0-40.0); MEAN CELL VOLUME 93.4 fl (80.0-94.0); MEAN CORPUSCULAR HEMOGLOBIN 31.5 pg (27.0-31.0); MEAN CORPUSCULAR HGB CONC 33.8 g/dL (33.0-37.0); MEAN PLATELET VOLUME 7.6 fl (7.2-11.7); MONO # 0.5 K/uL (0.0-0.8); MONO % 6.9 % (0.0-10.0); NEUT # 2.3 K/uL (1.8-7.0); NEUT % 32.8 % (50.0-75.0); NRBC % 0.3 % (0.0-0.0); RBC 4.82 Mil/uL (4.40-5.90); RED CELL DISTRIBUTION WIDTH 17.7 % (11.5-14.5); WHITE BLOOD COUNT 7.1 K/uL (4.8-10.8)
--- NOTE | 2018-03-24 14:10 | RAD ---
Date of service: 03/24/2018 HISTORY: dyspnea COMPARISON: Comparison chest 01/16/2018. FINDINGS: LUNGS: No acute infiltrates. Vague nodular density seen in the right upper lobe overlying the right posterior 5th rib laterally that may represent confluence of shadow artifact. The possibility of a small parenchymal nodule not completely excluded. Follow-up nonemergent CT scan of the chest could be performed for further evaluation. PLEURA: No significant pleural effusion identified, no pneumothorax apparent. CARDIOVASCULAR: No aortic atherosclerotic calcification present Normal. OSSEOUS STRUCTURES: No significant abnormalities. VISUALIZED UPPER ABDOMEN: Normal. OTHER FINDINGS: None. IMPRESSION: No acute infiltrates. Vague nodular density seen in the right upper lobe overlying the right posterior 5th rib laterally that may represent confluence of shadow artifact. The possibility of a small parenchymal nodule not completely excluded. Follow-up nonemergent CT scan of the chest could be performed for further evaluation. .
[2018-03-24 14:27] LABS: BARBITURATES, UR NEGATIVE (NEGATIVE); BENZODIAZEPINES, UR NEGATIVE (NEGATIVE); OPIATES, UR POSITIVE (NEGATIVE); PHENCYCLIDINE, UR NEGATIVE (NEGATIVE)
--- NOTE | 2018-03-24 20:25 | ED PDOC ---
- Laboratory Results Result Diagrams: 03/24/18 13:02 03/24/18 13:02 Medical Decision Making Medical Decision Making: Time: 19:00 Patient care was endorsed by Dr. Eckert to Dr. Barrera pending crisis and reevaluation. Time: 21:00 Patient has been evaluated by crisis and is stable for discharge. Diagnosis is alcohol induced disorder. -------- Scribe Attestation: Documented by Celso Richardson, acting as a scribe for Alejandro Barrera MD. Provider Scribe Attestation: All medical record entries made by the Scribe were at my direction and personally dictated by me. I have reviewed the chart and agree that the record accurately reflects my personal performance of the history, physical exam, medical decision making, and the department course for this patient. I have also personally directed, reviewed, and agree with the discharge instructions and disposition. Disposition - Clinical Impression Clinical Impression: Alcohol-induced mood disorder - POA Present On Arrival: None - Disposition Disposition: Routine/Home Disposition Time: 21:00 Condition: STABLE Instructions: Alcohol Abuse and Alcoholism (DC) Forms: [employer] (Georgian)
[2018-03-25 01:18] VITALS: BP 147/86; PULSE 102; RESP 18; TEMP 98.5; O2SAT 96
--- NOTE | 2018-03-25 02:57 | CARD ---
APPROVED REPORT Date of service: 03/24/2018 EKG Measurement Heart [id number] <Conclusion> Normal sinus rhythm Left axis deviation Abnormal ECG
== END 2018-03-24 21:02 | disposition home or self-care (01) ==
LOC: H.ER 12:04
DX: F10.129 Alcohol abuse with intoxication, unspecified (principal); R06.2 Wheezing; E11.9 Type 2 diabetes mellitus without complications; E78.00 Pure hypercholesterolemia, unspecified; F17.210 Nicotine dependence, cigarettes, uncomplicated; Z86.59 Personal history of other mental and behavioral disorders; J44.9 Chronic obstructive pulmonary disease, unspecified; J45.901 Unspecified asthma with (acute) exacerbation; Z79.84 Long term (current) use of oral hypoglycemic drugs; Y90.8 Blood alcohol level of 240 mg/100 ml or more
CPT/HCPCS: 71045; 80053; 80320; 80324; 80345; 80346; 80349; 80353; 80358; 80361; 83992; 84484; 85025; 93005; 94640; 96372; 99283; J2060

== ENCOUNTER 2018-04-07 07:49 | Emergency (ER) | payer OTHER ==
[2018-04-07 07:49] VITALS: BMI 29.9
[2018-04-07 07:53] VITALS: RESP 19
[2018-04-07] MEDS ORDERED: Sodium Chloride 0.9% 1,000 ML IV STA (08:49)
[2018-04-07] MEDS ORDERED: Albuterol-Ipratrop 3 mg / 0.5 (3 ml) UD IH STA (08:50)
--- NOTE | 2018-04-07 08:56 | ED PDOC ---
HPI: Abdomen Time Seen by Provider: 04/07/18 08:17 Chief Complaint (Nursing): Abdominal Pain Chief Complaint (Provider): Abdominal Pain History Per: Patient History/Exam Limitations: no limitations Onset/Duration Of Symptoms: Days (x3-4 weeks) Current Symptoms Are (Timing): Still Present Additional Complaint(s): 58 y/o male with a PMHx of HTN and Asthma presents to the ED for evaluation of abdominal pain, onset 3-4 weeks ago. Patient states he has had a "lump" in his stomach that has been hurting him for a long time. Patient additionally reports pain is associated with slight shortness of breath, fever and cough. Patient admits to alcohol use. Patient denies nausea, vomiting, diarrhea and chest pain. Shortness of breath is similar to his asthma. No leg pain. Not suicidal or homicidal. PMD: Teena Nunn Past Medical History Reviewed: Historical Data, Nursing Documentation, Vital Signs Vital Signs: Last Vital Signs Temp 97.9 F 04/07/18 07:53 Pulse 95 H 04/07/18 07:53 Resp 19 04/07/18 07:53 BP 135/86 04/07/18 07:53 Pulse Ox 96 04/07/18 07:53 - Medical History PMH: Anemia, Anxiety, Asthma, Back Problems, Bipolar Disorder, COPD, Depression, Diabetes, Gastritis, GERD, Hypercholesterolemia, Pancreatitis, Schizophrenia, Seizures (secondary to ETOH withdrawal), Chronic Pain (low back pain ) Denies: Chronic Kidney Disease, Sexually Transmitted Disease - Surgical History Surgical History: Back Surgery - Family History Family History: States: Unknown Family Hx, Diabetes - Social History Alcohol: > 2 Drinks/Day Drugs: Denies - Immunization History Hx Tetanus Toxoid Vaccination: Yes (As per patient, TDaP uptodate ( about 3 years ago)) Hx Influenza Vaccination: No Hx Pneumococcal Vaccination: No - Home Medications Home Medications: Ambulatory Orders Medication Instructions Recorded Lipase/Protease/Amylase [Saulo Greco 1 each PO AC #30 capsule. 08/17/17 3,000 Units Capsule] Albuterol HFA [Ventolin HFA 90 1 puff IH Q4 PRN #1 inh 09/20/17 mcg/actuation (8 g)] Folic Acid 1 mg PO DAILY #30 tab 09/20/17 Gabapentin [Neurontin] 100 mg PO TID 30 Days #90 cap 09/20/17 Mometasone/Formoterol [Dulera 100 13 gm IH BID #1 hfa.aer.ad 09/20/17 Mcg/5 Mcg Inhaler] Montelukast [Singulair] 10 mg PO HS #30 tab 09/20/17 Multimineral/Multivitamin 1 tab PO DAILY #30 tab 09/20/17 [Therapeutic-M Tab] Thiamine [Vitamin B1 Tab] 100 mg PO DAILY 30 Days #30 tab 09/20/17 metFORMIN [glucOPHAGE] 850 mg PO DAILY #90 tab 09/20/17 metroNIDAZOLE [Flagyl] 500 mg PO Q8 #12 tab 09/20/17 hydroCHLOROthiazide [Hydrodiuril] 25 mg PO DAILY #30 tab 10/05/17 Albuterol HFA [Ventolin HFA 90 2 puff IH Q4H #1 puff 01/16/18 mcg/actuation (8 g)] Pantoprazole Sodium [Protonix] 40 mg PO DAILY #30 tablet 01/16/18 Famotidine [Pepcid] 20 mg PO DAILY PRN #6 tab 04/07/18 - Allergies Allergies/Adverse Reactions: Allergies Allergy/AdvReac Type Severity Reaction Status Date / Time No Known Allergies Allergy Verified 04/07/18 08:20 Review of Systems ROS Statement: Except As Marked, All Systems Reviewed And Found Negative Cardiovascular: Negative for: Chest Pain Respiratory: Positive for: Cough, Shortness of Breath Gastrointestinal: Positive for: Abdominal Pain. Negative for: Nausea, Vomiting, Diarrhea Physical Exam - Reviewed Nursing Documentation Reviewed: Yes Vital Signs Reviewed: Yes - Physical Exam Appears: Positive for: No Acute Distress Head Exam: Positive for: ATRAUMATIC, NORMOCEPHALIC Skin: Positive for: Normal Color, Warm, Dry Eye Exam: Positive for: Normal appearance ENT: Positive for: Normal ENT Inspection. Negative for: Nasal Congestion Neck: Positive for: Normal, Painless ROM, Supple Cardiovascular/Chest: Positive for: Regular Rate, Rhythm. Negative for: Murmur Respiratory: Positive for: Wheezing (Trace end expiratory ). Negative for: Accessory Muscle Use, Respiratory Distress Gastrointestinal/Abdominal: Positive for: Soft, Tenderness (Epigastric tenderness to palpation with bulging ) Back: Positive for: Normal Inspection. Negative for: L CVA Tenderness, R CVA Tenderness Extremity: Positive for: Normal ROM. Negative for: Tenderness, Pedal Edema, Deformity Neurologic/Psych: Positive for: Alert, Oriented. Negative for: Motor/Sensory Deficits - Laboratory Results Result Diagrams: 04/07/18 09:16 04/07/18 09:16 Interpretation Of Abn Labs: 365 etoh - ECG O2 Sat by Pulse Oximetry: 96 (RA) Pulse Ox Interpretation: Normal - CT Scan/US ct Other Rad Studies (CT/US): Read By Radiologist Other Rad Interpretation: similar to previous - Progress ED Course And Treament: 1340: Stable. AAOx3. Pending sobriety and po challenge. Medical Decision Making Medical Decision Making: Time: 09 Plan: -- CT Abd/Pelvis IV Contrast -- Alcohol Serum -- CMP -- Lipase -- Troponin I -- CBC with Differentials -- Duoneb 3 mg/0.5mg (3 ml) UD 3 ml INH -- Sodium Chloride IV 1000 mls/hr -- Pepcid 20 mg IVP -- POC -- Peak Flow Pre/Post Tx Scribe Attestation: Documented by Lydia Emerson, acting as a scribe for Nilesh Eckert MD. Provider Scribe Attestation: All medical record entries made by the Scribe were at my direction and personally dictated by me. I have reviewed the chart and agree that the record accurately reflects my personal performance of the history, physical exam, medical decision making, and the department course for this patient. I have also personally directed, reviewed, and agree with the discharge instructions and disposition. Disposition - Clinical Impression Clinical Impression: Alcohol intoxication, Abdominal pain - Patient ED Disposition Is Patient to be Admitted: No Counseled Patient/Family Regarding: Studies Performed, Diagnosis, Need For Followup - Disposition Referrals: [facility] [Outside] - 04/09/18 Disposition: Routine/Home Disposition Time: 13:00 Condition: STABLE Additional Instructions: Return if not better in 3 days. Prescriptions: Famotidine [Pepcid] 20 mg PO DAILY PRN #6 tab PRN Reason: Pain Instructions: Alcohol Abuse and Alcoholism (DC), Stomach Ache and Stomach Upset
[2018-04-07 09:22] LABS: BASO # 0.1 K/uL (0.0-0.2); EOS # 0.1 K/uL (0.0-0.7); EOS % 1.8 % (0.0-4.0); HEMOGLOBIN 14.8 g/dL (12.0-18.0); LYMPH # 3.6 K/uL (1.0-4.3); LYMPH % 47.5 % (20.0-40.0); MEAN CELL VOLUME 91.7 fl (80.0-94.0); MEAN CORPUSCULAR HEMOGLOBIN 31.1 pg (27.0-31.0); MEAN CORPUSCULAR HGB CONC 33.9 g/dL (33.0-37.0); MEAN PLATELET VOLUME 7.7 fl (7.2-11.7); MONO # 0.6 K/uL (0.0-0.8); MONO % 7.5 % (0.0-10.0); NEUT # 3.2 K/uL (1.8-7.0); NEUT % 42.2 % (50.0-75.0); NRBC % 0.1 % (0.0-0.0); RBC 4.75 Mil/uL (4.40-5.90); WHITE BLOOD COUNT 7.7 K/uL (4.8-10.8)
[2018-04-07 09:58] LABS: ALB/GLOB RATIO 1.4 (1.0-2.1); ALBUMIN 4.6 g/dL (3.5-5.0); ALT/SGPT 121 U/L (21-72); AST/SGOT 165 U/L (17-59); BLOOD UREA NITROGEN 7 mg/dl (9-20); CALCIUM 8.8 mg/dL (8.4-10.2); GFR NON-AFRICAN AMERICAN > 60; LIPASE 336 U/L (23-300)
[2018-04-07] MEDS ORDERED: Sodium Chloride 0.9% 50 ML IV ONE (11:23)
[2018-04-07] MEDS ORDERED: Iohexol 300 100 ML IJ ONE (11:23)
--- NOTE | 2018-04-07 12:29 | CT ---
Date of service: 04/07/2018 PROCEDURE: CT Abdomen and Pelvis with contrast HISTORY: abd pain COMPARISON: None. TECHNIQUE: Contrast dose: Radiation dose: Total exam DLP = 797.21 mGy-cm. This CT exam was performed using one or more of the following dose reduction techniques: Automated exposure control, adjustment of the mA and/or kV according to patient size, and/or use of iterative reconstruction technique. FINDINGS: LOWER THORAX: Unremarkable. LIVER: Fatty liver. Hepatomegaly. GALLBLADDER AND BILE DUCTS: Unremarkable. PANCREAS: Unremarkable. No gross lesion or ductal dilatation. SPLEEN: Unremarkable. ADRENALS: Unremarkable. No mass. KIDNEYS AND URETERS: Incomplete rotation of the left kidney with left periureteral fat infiltration and mild left hydroureter proximally. No evidence of renal or urinary tract calculus. VASCULATURE: Unremarkable. No aortic aneurysm. No aortic atherosclerotic calcification or mural plaque present. BOWEL: Sigmoid colon diverticulosis. APPENDIX: Normal appendix. PERITONEUM: Unremarkable. No free fluid. No free air. LYMPH NODES: Unremarkable. No enlarged lymph nodes. BLADDER: Unremarkable. REPRODUCTIVE: Unremarkable. BONES: No acute fracture. OTHER FINDINGS: None. IMPRESSION: Incomplete rotation of the left kidney with left periureteral fat infiltration and mild left hydroureter proximally. No evidence of renal or urinary tract calculus.
[2018-04-07 14:41] VITALS: BP 126/78; PULSE 78; TEMP 97; O2SAT 98
== END 2018-04-07 14:41 | disposition home or self-care (01) ==
LOC: H.ER 07:49
DX: F10.129 Alcohol abuse with intoxication, unspecified (principal); Y90.8 Blood alcohol level of 240 mg/100 ml or more; R10.9 Unspecified abdominal pain; E11.9 Type 2 diabetes mellitus without complications; Z86.59 Personal history of other mental and behavioral disorders; J44.9 Chronic obstructive pulmonary disease, unspecified; Z79.84 Long term (current) use of oral hypoglycemic drugs; E78.00 Pure hypercholesterolemia, unspecified
CPT/HCPCS: 74177; 80053; 80320; 83690; 84484; 85025; 96374; 99284; J7030; Q9967

== ENCOUNTER 2018-06-14 04:55 | Emergency (ER) | payer MEDICAID, OTHER ==
[2018-06-14 04:56] VITALS: BMI 29.9
[2018-06-14 05:22] VITALS: RESP 18; TEMP 98.2; O2SAT 95
[2018-06-14] MEDS ORDERED: Albuterol-Ipratrop 3 mg / 0.5 (3 ml) UD IH STA ×2 (05:27→05:30)
[2018-06-14 05:35] VITALS: BP 153/86; PULSE 79
--- NOTE | 2018-06-14 05:36 | ED PDOC ---
HPI: CCC, URI, Sore Throat Time Seen by Provider: 06/14/18 05:16 Chief Complaint (Nursing): Cough, Cold, Congestion Chief Complaint (Provider): cough, congestion History Per: Patient History/Exam Limitations: no limitations Onset/Duration Of Symptoms: Days Current Symptoms Are (Timing): Still Present Additional Complaint(s): 58 y/o male presents to the ED for evaluation of cough and congestion x 2 days. Denies fever, nausea/vomiting, chest pain, shortness of breath, palpitations, abdominal pain. Of note, patient sleeping in waiting room until asked to leave by security then decided to register to be seen Past Medical History Reviewed: Historical Data, Nursing Documentation, Vital Signs Vital Signs: Last Vital Signs Temp 98.2 F 06/14/18 05:12 Pulse 93 H 06/14/18 05:12 Resp 18 06/14/18 05:12 BP 184/112 H 06/14/18 05:12 Pulse Ox 95 06/14/18 05:12 - Medical History PMH: Anemia, Anxiety, Asthma, Back Problems, Bipolar Disorder, COPD, Depression, Diabetes, Gastritis, GERD, Hypercholesterolemia, Pancreatitis, Schizophrenia, Seizures (secondary to ETOH withdrawal), Chronic Pain (low back pain ) Denies: Chronic Kidney Disease, Sexually Transmitted Disease - Surgical History Surgical History: Back Surgery - Family History Family History: States: Unknown Family Hx, Diabetes - Immunization History Hx Tetanus Toxoid Vaccination: Yes (As per patient, TDaP uptodate ( about 3 years ago)) Hx Influenza Vaccination: No Hx Pneumococcal Vaccination: No - Home Medications Home Medications: Ambulatory Orders Medication Instructions Recorded Lipase/Protease/Amylase [Saulo Greco 1 each PO AC #30 capsule. 08/17/17 3,000 Units Capsule] Albuterol HFA [Ventolin HFA 90 1 puff IH Q4 PRN #1 inh 09/20/17 mcg/actuation (8 g)] Folic Acid 1 mg PO DAILY #30 tab 09/20/17 Gabapentin [Neurontin] 100 mg PO TID 30 Days #90 cap 09/20/17 Mometasone/Formoterol [Dulera 100 13 gm IH BID #1 hfa.aer.ad 09/20/17 Mcg/5 Mcg Inhaler] Montelukast [Singulair] 10 mg PO HS #30 tab 04/18/18 Multimineral/Multivitamin 1 tab PO DAILY #30 tab 09/20/17 [Therapeutic-M Tab] Thiamine [Vitamin B1 Tab] 100 mg PO DAILY 30 Days #30 tab 09/20/17 metFORMIN [glucOPHAGE] 850 mg PO DAILY #90 tab 09/20/17 metroNIDAZOLE [Flagyl] 500 mg PO Q8 #12 tab 09/20/17 hydroCHLOROthiazide [Hydrodiuril] 25 mg PO DAILY #30 tab 10/05/17 Albuterol HFA [Ventolin HFA 90 2 puff IH Q4H #1 puff 01/16/18 mcg/actuation (8 g)] Pantoprazole Sodium [Protonix] 40 mg PO DAILY #30 tablet. 01/16/18 Famotidine [Pepcid] 20 mg PO DAILY PRN #6 tab 04/07/18 Fluticasone Nasal [Flonase] 1 actuation NS BID #1 bottle 06/14/18 Guaifenesin [Mucinex] 1 - 2 tab PO Q12 PRN #20 06/14/18 - Allergies Allergies/Adverse Reactions: Allergies Allergy/AdvReac Type Severity Reaction Status Date / Time No Known Allergies Allergy Verified 04/07/18 08:20 Review of Systems ROS Statement: Except As Marked, All Systems Reviewed And Found Negative ENT: Positive for: Nose Congestion Respiratory: Positive for: Cough Physical Exam - Reviewed Nursing Documentation Reviewed: Yes Vital Signs Reviewed: Yes - Physical Exam Appears: Positive for: Well, Non-toxic, No Acute Distress Head Exam: Positive for: ATRAUMATIC, NORMAL INSPECTION, NORMOCEPHALIC Skin: Positive for: Normal Color Eye Exam: Positive for: Normal appearance ENT: Positive for: Normal ENT Inspection Cardiovascular/Chest: Positive for: Regular Rate, Rhythm Respiratory: Positive for: Wheezing (minimal expiratory wheezing) Gastrointestinal/Abdominal: Positive for: Normal Exam Back: Positive for: Normal Inspection Extremity: Positive for: Normal ROM Neurologic/Psych: Positive for: Alert, Oriented (x3) - ECG O2 Sat by Pulse Oximetry: 95 - Progress ED Course And Treament: -duoneb Patient educated on finidngs, discharged with rx Mucinex, flonase Advised follow up PMD within 2-3 days Return precautions given Disposition - Clinical Impression Clinical Impression: URI (upper respiratory infection) - Patient ED Disposition Is Patient to be Admitted: No Counseled Patient/Family Regarding: Diagnosis, Need For Followup, Rx Given - Disposition Disposition: Routine/Home Disposition Time: 05:51 Condition: IMPROVED Prescriptions: Fluticasone Nasal [Flonase] 1 actuation NS BID #1 bottle Guaifenesin [Mucinex] 1 - 2 tab PO Q12 PRN #20 PRN Reason: congestion Instructions: Viral Upper Respiratory Infection, Adult (DC) Forms: [employer] ([place]oz[place]ican)
== END 2018-06-14 06:16 | disposition home or self-care (01) ==
LOC: H.ER 04:55
DX: J06.9 Acute upper respiratory infection, unspecified (principal)

== ENCOUNTER 2018-08-05 08:49 | Emergency (ER) | payer OTHER ==
[2018-08-05 08:50] VITALS: BMI 29.9
[2018-08-05 08:53] VITALS: BP 160/95; RESP 18; TEMP 98.5; O2SAT 99
--- NOTE | 2018-08-05 10:09 | ED PDOC ---
HPI: General Adult Time Seen by Provider: 08/05/18 09:12 Chief Complaint (Nursing): Seizure History Per: Patient (Mr. Torres was brought by EMS because of seizures. Patient states that he was eating breakfast nearby when he passed out. Patient has history of psych and medical history that includes seizures, and depression. He says that he is impatient with waiting for clinic appointments so he doesn't go. He has been out of meds for several months. Patient is without complaints on arrival to the ER. He does not want treatment. During the interview patient had an episode of what looked like his was seizing. He was awake during the brief episode and got out of it when his name was called. he did not have any post ictal state.) Past Medical History Reviewed: Historical Data, Nursing Documentation, Vital Signs Vital Signs: Last Vital Signs Temp 98.5 F 08/05/18 08:52 Pulse 107 H 08/05/18 08:52 Resp 18 08/05/18 08:52 BP 160/95 H 08/05/18 08:52 Pulse Ox 99 08/05/18 08:52 - Medical History PMH: Anemia, Anxiety, Asthma, Back Problems, Bipolar Disorder, COPD, Depression, Diabetes, Gastritis, GERD, Hypercholesterolemia, Pancreatitis, Schizophrenia, Seizures (secondary to ETOH withdrawal), Chronic Pain (low back pain ) Denies: Chronic Kidney Disease, Sexually Transmitted Disease - Surgical History Surgical History: Back Surgery - Family History Family History: States: Unknown Family Hx, Diabetes - Immunization History Hx Tetanus Toxoid Vaccination: Yes (As per patient, TDaP uptodate ( about 3 years ago)) Hx Influenza Vaccination: No Hx Pneumococcal Vaccination: No - Home Medications Home Medications: Ambulatory Orders Medication Instructions Recorded Lipase/Protease/Amylase [Saulo Greco 1 each PO AC #30 capsule. 08/17/17 3,000 Units Capsule] Albuterol HFA [Ventolin HFA 90 1 puff IH Q4 PRN #1 inh 09/20/17 mcg/actuation (8 g)] Folic Acid 1 mg PO DAILY #30 tab 09/20/17 Gabapentin [Neurontin] 100 mg PO TID 30 Days #90 cap 09/20/17 Mometasone/Formoterol [Dulera 100 13 gm IH BID #1 hfa.aer.ad 09/20/17 Mcg/5 Mcg Inhaler] Montelukast [Singulair] 10 mg PO HS #30 tab 09/20/17 Multimineral/Multivitamin 1 tab PO DAILY #30 tab 09/20/17 [Therapeutic-M Tab] Thiamine [Vitamin B1 Tab] 100 mg PO DAILY 30 Days #30 tab 09/20/17 metFORMIN [glucOPHAGE] 850 mg PO DAILY #90 tab 09/20/17 metroNIDAZOLE [Flagyl] 500 mg PO Q8 #12 tab 09/20/17 hydroCHLOROthiazide [Hydrodiuril] 25 mg PO DAILY #30 tab 10/05/17 Albuterol HFA [Ventolin HFA 90 2 puff IH Q4H #1 puff 01/16/18 mcg/actuation (8 g)] Pantoprazole Sodium [Protonix] 40 mg PO DAILY #30 tablet. 01/16/18 Famotidine [Pepcid] 20 mg PO DAILY PRN #6 tab 04/07/18 Fluticasone Nasal [Flonase] 1 actuation NS BID #1 bottle 06/14/18 Guaifenesin [Mucinex] 1 - 2 tab PO Q12 PRN #20 06/14/18 - Allergies Allergies/Adverse Reactions: Allergies Allergy/AdvReac Type Severity Reaction Status Date / Time No Known Allergies Allergy Verified 08/05/18 09:07 Review of Systems ROS Statement: Except As Marked, All Systems Reviewed And Found Negative Physical Exam - Reviewed Nursing Documentation Reviewed: Yes Vital Signs Reviewed: Yes - Physical Exam Appears: Positive for: Well, Non-toxic, No Acute Distress Head Exam: Positive for: ATRAUMATIC, NORMAL INSPECTION, NORMOCEPHALIC Skin: Positive for: Normal Color, Warm, DRY Eye Exam: Positive for: EOMI, Normal appearance, PERRL ENT: Positive for: Normal ENT Inspection Neck: Positive for: Normal, Painless ROM Cardiovascular/Chest: Positive for: Regular Rate, Rhythm Respiratory: Positive for: CNT, Normal Breath Sounds Gastrointestinal/Abdominal: Positive for: Normal Exam, Soft Back: Positive for: Normal Inspection Extremity: Positive for: Normal ROM Neurologic/Psych: Positive for: Alert, Oriented - ECG O2 Sat by Pulse Oximetry: 99 Disposition - Clinical Impression Clinical Impression: Alcoholism - Patient ED Disposition Is Patient to be Admitted: No Doctor Will See Patient In The: Office Counseled Patient/Family Regarding: Diagnosis, Need For Followup - Disposition Disposition: Routine/Home Disposition Time: 09:45 Condition: STABLE Instructions: Alcohol Use - When Is Drinking a Problem? Forms: [facility] (Togolese), [facility] ED School/Work Excuse - POA Present On Arrival: None
[2018-08-05 10:44] VITALS: PULSE 97
== END 2018-08-05 10:45 | disposition home or self-care (01) ==
LOC: H.ER 08:49
DX: F10.20 Alcohol dependence, uncomplicated (principal); Z86.59 Personal history of other mental and behavioral disorders; J44.9 Chronic obstructive pulmonary disease, unspecified; R56.9 Unspecified convulsions; E11.9 Type 2 diabetes mellitus without complications; Z79.84 Long term (current) use of oral hypoglycemic drugs